=== PATIENT | female | born 1965 | race Caucasian/White ===

== ENCOUNTER 2020-04-20 11:50 | Outpatient (CLI) | payer OTHER, SELFPAY ==
--- NOTE | ~2020-04-20 | MM_ITS ---
EXAMINATION: MM screening gokul BI w raza HISTORY: Screening mammogram TECHNIQUE: Craniocaudal and mediolateral oblique 3-D tomosynthesis images were obtained and synthetic 2-D images were generated. CAD analysis was submitted and interpreted. COMPARISON: No prior mammogram is available for comparison at this institution. BREAST PARENCHYMAL COMPOSITION: There are scattered areas of fibroglandular density. FINDINGS: There is no evidence of suspicious mass, calcification, or architectural distortion to sugg est malignancy in either breast. IMPRESSION: 1. No mammographic evidence of malignancy. 2. Recommend routine screening mammography in one year. BI-RADS Category 1: Negative Reviewed, dictated and finalized at location D.
== END 2020-04-20 11:51 | disposition home or self-care (01) ==
PROVIDERS: PCP Physician Assistant; Visit Provider Obstetrics & Gynecology
DX: Z12.31 Encounter for screening mammogram for malignant neoplasm of breast (principal)
CPT/HCPCS: 77063; 77067

== ENCOUNTER 2021-04-24 08:56 | Outpatient (CLI) | payer OTHER, SELFPAY ==
--- NOTE | ~2021-04-24 | MM_ITS ---
EXAMINATION: MM screening gokul BI w raza HISTORY: Screening TECHNIQUE: Craniocaudal and mediolateral oblique 3-D tomosynthesis images were obtained and synthetic 2-D images were generated. CAD analysis was submitted and interpreted. COMPARISON: 04/20/2020 BREAST PARENCHYMAL COMPOSITION: There are scattered areas of fibroglandular density. FINDINGS: There is no evidence of suspicious mass, calcification, or architectural distortion to sugg est malignancy in either breast. There has been no suspicious interval change. IMPRESSION: 1. No mammographic evidence of malignancy. 2. Recommend routine screening mammography in one year. BI-RADS Category 1: Negative Reviewed, dictated and finalized at location A.
== END 2021-04-24 08:57 | disposition home or self-care (01) ==
LOC: ANHIMG 08:58
PROVIDERS: PCP Physician Assistant; Visit Provider Obstetrics & Gynecology
DX: Z12.31 Encounter for screening mammogram for malignant neoplasm of breast (principal)
CPT/HCPCS: 77063; 77067

== ENCOUNTER 2021-05-29 07:59 | Outpatient (CLI) | payer OTHER, SELFPAY ==
[2021-05-29 08:17] LABS: Hematocrit 32.4 % (37.0-47.0); Hemoglobin 9.6 g/dL (12.0-15.0)
== END 2021-05-29 08:00 | disposition home or self-care (01) ==
LOC: ANHSURGERY 08:02
PROVIDERS: Anesthesiology; PCP Physician Assistant; Visit Provider Obstetrics & Gynecology
DX: D64.9 Anemia, unspecified (principal); Z01.818 Encounter for other preprocedural examination
CPT/HCPCS: 36415; 85014; 85018

== ENCOUNTER 2021-05-31 02:17 | Day surgery (SDC) | payer OTHER, SELFPAY ==
[2021-05-26 11:27] VITALS: BMI 33.6
--- NOTE | 2021-05-31 12:47 | P.PNAN_ITS ---
Anes - Initial Pre Proc Eval Procedure: Operation Date: 05/31/21 15:30 Proposed Procedures p Hysteroscopy, Dilation and Curettage with Tari Endometrial Ablation - Joaquim Bynum MD Date/Time: 05/31/21 12:47 Surgeon: Joaquim Bynum MD Pre Op Diagnosis: post menopausal bleeding Patient Data Age: 56 Gender: F Height: 1.6 m Weight: 86.18 kg Allergies Allergy/AdvReac Type Severity Reaction Status Date / Time No Known Allergies Allergy Unverified 05/31/21 13:40 Home Medications Medication Instructions Recorded Confirmed Type apixaban [Eliquis] 5 mg PO BID 05/26/21 05/31/21 History ferrous sulfate [Iron (ferrous 325 mg PO DAILY 05/26/21 05/31/21 History sulfate)] lisinopril 10 mg PO DAILY 05/26/21 05/31/21 History tf-pt-bxqz-FA-Ca carb-vit K 1 tablet PO DAILY 05/26/21 05/31/21 History [Women's Multivitamin] venlafaxine 75 mg PO DAILY 05/26/21 05/31/21 History medroxyprogesterone 10 mg PO DAILY 05/31/21 05/31/21 History Patient hx anesthesia problems: none Family hx anesthesia problems: none Results Review: All pre-operative results and documents have been reviewed as part of the pre-operative evaluation. [facility] Past Medical History Medical History Anxiety Depression HTN (hypertension) Obesity Pulmonary embolism Social History Social History Smoking status: Never smoker Alcohol intake: never Substance use: never Substance use type: does not use Living arrangements: with family Spiritual care concerns: No Anes - Eval Final PreProcedure Day of Procedure 05/31/21 12:47 Patient weight: obese Heart: regular rate and rhythm Lungs: clear to auscultation and normal air movement Airway: Mallampati scale class II Neurological: alert and oriented Last oral intake: >/= 8 hours ASA classification: III Emergent: no Anesthetic plan: proceed Anesthesia type and monitoring: general GIVS Results Review: All pre-operative results and documents have been reviewed as part of the pre-operative evaluation. Informed Consent: The patient's anesthetic plan and its attendant risks and benefits were discussed with the patient/family/POA. Questions were solicited and answers provided to the satisfaction of the patient/family/POA.
[2021-05-31] MEDS: ACETAMINOPHEN 500 MG TABLET 1000 MG PO (13:51)
--- NOTE | 2021-05-31 14:05 | PM.IMHP ---
H&P: HPI History of Present Illness Date/Time: 05/31/21 14:05 56 y/o with history of pulmonary emboli, on Eliquis. Now has had several episodes of heavy vaginal bleeding. These episodes have responded somewhat to treatment with Provera, but have recurred on stopping the medicine. Chief Complaint: Heavy bleeding Review of Systems Review of Systems: All systems reviewed & are unremarkable except as noted in HPI and below PMFSH Past Medical History Medical History Anxiety Depression HTN (hypertension) Obesity Pulmonary embolism Social History Social History Smoking status: Never smoker Alcohol intake: never Substance use: never Substance use type: does not use Living arrangements: with family Spiritual care concerns: No Meds Home Medications and Allergies Home Medications Medication Instructions Recorded Confirmed Type apixaban [Eliquis] 5 mg PO BID 05/26/21 05/31/21 History ferrous sulfate [Iron (ferrous 325 mg PO DAILY 05/26/21 05/31/21 History sulfate)] lisinopril 10 mg PO DAILY 05/26/21 05/31/21 History sg-ea-hflt-FA-Ca carb-vit K 1 tablet PO DAILY 05/26/21 05/31/21 History [Women's Multivitamin] venlafaxine 75 mg PO DAILY 05/26/21 05/31/21 History medroxyprogesterone 10 mg PO DAILY 05/31/21 05/31/21 History Allergies Allergy/AdvReac Type Severity Reaction Status Date / Time No Known Allergies Allergy Unverified 05/31/21 13:40 Exam Const: Orientation/consciousness: patient oriented x3 Other: Well-developed, well-nourished female in no acute distress. Neck: Thyroid: thyroid normal Lymphatic: no lymphadenopathy noted (in neck, axilla or inguinal nodes) Resp: Effort & Inspection: normal respiratory effort Auscultation: clear to auscultation bilaterally Cardio: Rate: regular rate Rhythm: regular rhythm Heart sounds: S1 normal heart sound present and S2 normal heart sound present GI: Other: ABD: Soft, nontender, nondistended. No guarding or rebound tenderness. No hepatosplenomegaly. : General: Yes no CVA tenderness Other: External genitalia: normal female hair distribution, without lesion. Urethral meatus: no lesion, non prolapsed. Bladder: no mass, nontender Vagina: well-estrogenized, without lesion or discharge. No cystocele or rectocele. Cervix: no lesion or discharge. Uterus: small, anteverted, freely mobile, nontender Adnexa: no mass or tenderness. Anus/perineum: no lesions, nontender Back/Spine/Pelvis: Back: no CVA tenderness Skin: General skin exam: normal color and no rashes or lesions noted Neuro: General: patient oriented x3 Extrem: Other: Extremities: nontender with no edema Psych: Mental Status: mental status grossly normal Affect: normal affect Assessment and Plan Assessment and plan (1) Episode of heavy vaginal bleeding: Code(s): N93.9 - Abnormal uterine and vaginal bleeding, unspecified Status: Acute Assessment and Plan: A: Episodes of heavy vaginal bleeding. P: I have offered continued attempts at medical management, as well as surgical management options. She is interested in the latter. Specifically, I offered her hysteroscopy, dilation and sharp curettage, and endometrial ablation. She understands risks of surgery to include risks of anesthesia, risks of pain, infection, bleeding, blood products, thromboembolic phenomena and damage to adjacent structures such as bowel, bladder, ureters, blood vessels and nerves. She understands all these risks and elects to proceed with surgery.
[2021-05-31 14:11] VITALS: BP 140/77; PULSE 86; RESP 16; TEMP 37.3; O2SAT 100
[2021-05-31] MEDS: LACTATED RINGERS 1,000 ML 30 ML IV CONT (14:11)
--- NOTE | 2021-05-31 14:19 | WPDHPUPDATE1 ---
History and Physical Update Update Date/Time: 05/31/21 14:19 History and Physical has been reviewed, including an updated exam of the patient. There are NO changes in the patient's condition. Risks, benefits, and alternatives have been discussed and questions answered. Patient agrees to proceed with procedure.
--- NOTE | 2021-05-31 16:14 | P.OP_ITS ---
Procedure Note - Detailed Date of Procedure 05/31/21 Pre-op Diagnosis Heavy episode of vaginal bleeding Post-op Diagnosis same Procedure Performed Hysteroscopy Dilation and sharp curettage Endometrial ablation Surgeon Joaquim Bynum MD Anesthesia MAC and local (1% lidocaine paracervical block) Findings Normal-appearing endometrium. Both tubal ostia seen. Uterus sounds to a depth of 8 cm with a cervical length of 3.5 cm. Description of Procedure The patient was taken to the operating room where she was prepared and draped in the usual sterile fashion in the dorsal lithotomy position. The bladder was drained with a red rubber catheter. A sterile speculum was placed into the vagina. The anterior lip of the cervix was grasped with single-tooth tenaculum. Ten mL of 1% lidocaine was administered in a paracervical block. The cervix was then gently dilated using Hegar dilators until an 8 mm dilator could be passed. Hysteroscopy was performed using sterile saline as a distention medium. Findings are as noted above. Sharp curettage was then performed, and endometrial curettings were collected on a Telfa pad and passed off to be sent to pathology. Finally, the the Tari device was advanced and endometrial ablation commenced without difficulty. The device was withdrawn and a second look was taken using the hysteroscope. Excellent coverage of the endometrial cavity was noted. The tenaculum was removed. Hemostasis was excellent. Spong e, lap, needle and instrument counts were correct. The patient was awakened and taken to the recovery room in stable condition. I was present and scrubbed through the entire procedure. Estimated Blood Loss 10 Drains No Packing No Pathology yes (endometrial curettings) Complications None Condition stable Disposition PACU
[2021-05-31 16:16] VITALS: BP 131/70; PULSE 83; RESP 16; O2SAT 100
[2021-05-31 16:52] VITALS: BP 157/80; PULSE 76; RESP 20; O2SAT 100
== END 2021-05-31 17:04 | disposition home or self-care (01) ==
PROVIDERS: PCP Physician Assistant; Visit Provider Obstetrics & Gynecology
PROC: 0U5B8ZZ Destruction of Endometrium, Via Natural or Artificial Opening Endoscopic (ICD-10-PCS; CPT 58563; principal; 2021-05-31 15:30)
DX: N93.9 Abnormal uterine and vaginal bleeding, unspecified (principal); N85.8 Other specified noninflammatory disorders of uterus; F41.8 Other specified anxiety disorders; I10 Essential (primary) hypertension; Z86.711 Personal history of pulmonary embolism; E66.9 Obesity, unspecified; Z68.34 Body mass index [BMI] 34.0-34.9, adult
CPT/HCPCS: 58563; 36415; 85014; 85018; 88305; A9270; J2250; J2405; J2704; J3010; J7120

== ENCOUNTER 2021-08-04 08:21 | Outpatient (CLI) | payer BC, SELFPAY ==
--- NOTE | 2021-08-04 08:29 | ECG_ITS ---
Measurements Intervals [place] Rate: 80 P: 44 NV: 149 QRS: 13 QRSD: 98 T: 42 QT: 383 QTc: 444 Interpretive Statements SINUS RHYTHM LOW QRS VOLTAGE IN PRECORDIAL LEADS BASELINE ARTIFACT- I, II, III, AVR, AVL, AVF BORDERLINE ECG Electronically Signed On 08-04-2021 8:36:06 RN QUALITY by Chu Apodaca D.O.
[2021-08-04 09:07] LABS: Hematocrit 37.1 % (37.0-47.0); Hemoglobin 11.4 g/dL (12.0-15.0)
== END 2021-08-04 08:22 | disposition home or self-care (01) ==
LOC: ANHSURGERY 08:25
PROVIDERS: Anesthesiology; PCP Physician Assistant; Visit Provider Obstetrics & Gynecology
DX: N93.9 Abnormal uterine and vaginal bleeding, unspecified (principal); I10 Essential (primary) hypertension; D64.9 Anemia, unspecified; Z01.818 Encounter for other preprocedural examination; R94.31 Abnormal electrocardiogram [ECG] [EKG]
CPT/HCPCS: 36415; 85014; 85018; 86850; 86900; 86901; 93005

== ENCOUNTER 2021-08-08 00:17 | Day surgery (SDC) | payer BC, SELFPAY ==
[2021-08-01 14:02] VITALS: BMI 34.3
--- NOTE | 2021-08-01 14:14 | PC.NURSE ---
Report to the Outpatient Waiting Room, entrance under the green pavilion located off [facility], at time 11:30 on date 08/08/21. OR Time: 1:30. - You will be asked a series of questions to screen for COVID 19 for your protection. - A mask is required within the hospital. - No visitors are allowed at this time. Preoperative COVID Testing Requirements: No COVID Test needed if: (proof is required; if not received patient will have Rapid Test prior to entry) - Patient has received COVID Vaccine at least 14 days prior to procedure date or - Patient has positive COVID test result within last 90 days of surgery date. COVID Test needed if above criteria is not met Patients may have clear liquids (water, carbonated beverages, clear teas, apple juice) until 3 hours prior to surgery (10:30) with a maximum of 20 ounces. - No food from midnight until time of surgery Take the following medications with a SIP of water the morning of surgery: VENLAFAXINE, NORETHINDRONE Medications to discontinue per physician: VITAMINS/SUPPLEMENTS Date to take last dose: 08/04/[address] HWALEN Please no make-up, nail kazakh, hairspray, perfume, deodorant, or body powder the day of surgery. No jewelry (including any body piercings) or valuables the day of surgery, leave them at home. Please take a shower or bath the night before, or the morning of, surgery with an antibacterial soap. Wear comfortable, loose fitting clothing. - Jewelry must be removed prior to entering the operating room. Rings and piercings that are not removed may be cut off. - The hospital will not accept responsibility for valuables. - Please leave all valuables, including medications, at home the day of surgery. If you are going home after surgery, a licensed driver material handler must drive you home. - NO public transportation without another adult. - We recommend that an adult stay with you for 24 hours following discharge. - We also recommend that you do not drive, make important decision, drink alcoholic beverages, or take any drugs that were not prescribed by your health care provider for at least 24 hours after your discharge time. Follow any additional instructions given to you from your surgeon. Telephone instructions given to YAMILA CUTLER and asked if any additional questions and then verbalized understanding. Patient advised to call surgeon office or pre surgery nurse liaison [phone] if any additional questions.
[2021-08-08] VITALS (9 sets, daily range): BP systolic 119–151; BP diastolic 64–90; PULSE 68–84; RESP 12–18; TEMP 36.6–37.4; O2SAT 94–100
[2021-08-08] MEDS: ACETAMINOPHEN 500 MG TABLET 1000 MG PO (12:14)
[2021-08-08] MEDS: KETOROLAC 15 MG/ML VIAL (*BKC) IV PUSH (12:15)
--- NOTE | 2021-08-08 12:15 | P.PNAN_ITS ---
Anes - Eval Pre Procedure Procedure: Operation Date: 08/08/21 13:30 Proposed Procedures p Robotic Assisted Total Vaginal Hysterectomy with Bilateral Salpingo- Oophorectomy - Joaquim Bynum MD Date/Time: 08/08/21 12:15 Pre Op Diagnosis: heavy bleeding, failed ablation Patient Data Age: 56 Gender: F Height: 1.6 m Weight: 88 kg Allergies Allergy/AdvReac Type Severity Reaction Status Date / Time hydrocodone AdvReac Intermediate Vomiting Verified 08/01/21 14:07 Home Medications Medication Instructions Recorded Confirmed Type ferrous sulfate [Iron (ferrous 325 mg PO DAILY 05/26/21 08/01/21 History sulfate)] lisinopril 10 mg PO DAILY 05/26/21 08/01/21 History wn-tm-fscf-FA-Ca carb-vit K 1 tablet PO DAILY 05/26/21 08/01/21 History venlafaxine 75 mg PO DAILY 05/26/21 08/01/21 History aspirin [Baby Aspirin] 81 mg PO DAILY 08/01/21 08/01/21 History norethindrone acetate 5 mg PO DAILY 08/01/21 08/01/21 History Patient hx anesthesia problems: none Family hx anesthesia problems: none Results Review: All pre-operative results and documents have been reviewed as part of the pre-operative evaluation. [facility] Past Medical History Medical History Anxiety Depression HTN (hypertension) Obesity Pulmonary embolism Social History Social History Smoking status: Never smoker Alcohol intake: never Substance use: never Substance use type: does not use Living arrangements: with family Spiritual care concerns: No Exam Day of Procedure 08/08/21 12:15 Patient weight: obese Heart: regular rate and rhythm Lungs: clear to auscultation Airway: Mallampati scale class II Neurological: alert and oriented
[2021-08-08] MEDS: LACTATED RINGERS 1,000 ML 30 ML IV CONT ×2 (12:16→15:00)
[2021-08-08] MEDS: SCOPOLAMINE 1.5 MG PATCH TRANSDERM (12:32)
--- NOTE | 2021-08-08 12:37 | WPDANESEPPF ---
Anes - Initial Pre Proc Eval Procedure: Operation Date: 08/08/21 13:30 Proposed Procedures p Robotic Assisted Total Vaginal Hysterectomy with Bilateral Salpingo-Oophorectomy - Joaquim Bynum MD Date/Time: 08/08/21 12:37 Surgeon: Joaquim Bynum MD Pre Op Diagnosis: heavy bleeding, failed ablation Patient Data Age: 56 Gender: F Height: 1.6 m Weight: 90 kg Last Vital Signs Temp 99.4 F 08/08/21 12:00 Pulse 74 08/08/21 12:00 Resp 18 08/08/21 12:00 BP 151/85 H 08/08/21 12:00 Pulse Ox 100 08/08/21 12:00 Allergies Allergy/AdvReac Type Severity Reaction Status Date / Time hydrocodone AdvReac Intermediate Vomiting Verified 08/08/21 12:21 Home Medications Medication Instructions Recorded Confirmed Type ferrous sulfate [Iron (ferrous 325 mg PO DAILY 05/26/21 08/08/21 History sulfate)] lisinopril 10 mg PO DAILY 05/26/21 08/08/21 History ds-cs-tkss-FA-Ca carb-vit K 1 tablet PO DAILY 05/26/21 08/08/21 History venlafaxine 75 mg PO DAILY 05/26/21 08/08/21 History aspirin [Baby Aspirin] 81 mg PO DAILY 08/01/21 08/08/21 History norethindrone acetate 5 mg PO DAILY 08/01/21 08/08/21 History Patient hx anesthesia problems: none Family hx anesthesia problems: none Results Review: All pre-operative results and documents have been reviewed as part of the pre-operative evaluation. [facility] Past Medical History Medical History Anxiety Depression HTN (hypertension) Obesity Pulmonary embolism Social History Social History Smoking status: Never smoker Alcohol intake: never Substance use: never Substance use type: does not use Living arrangements: with family Spiritual care concerns: No Anes - Eval Final PreProcedure Day of Procedure 08/08/21 12:37 Patient weight: obese Heart: regular rate and rhythm Lungs: clear to auscultation Airway: Mallampati scale class II Neurological: alert and oriented Last oral intake: >/= 8 hours ASA classification: III Emergent: no Anesthetic plan: proceed Anesthesia type and monitoring: general ETT and standard monitoring Results Review: All pre-operative results and documents have been reviewed as part of the pre-operative evaluation. Informed Consent: The patient's anesthetic plan and its attendant risks and benefits were discussed with the patient/family/POA. Questions were solicited and answers provided to the satisfaction of the patient/family/POA.
--- NOTE | 2021-08-08 13:04 | PM.IMHP ---
H&P: HPI History of Present Illness Date/Time: 08/08/21 13:04 56 y/o with menometrorrhagia despite an endometrial ablation. Has just been switched from Eliquis to ASA. Chief Complaint: Heavy irregular bleeding Review of Systems Review of Systems: All systems reviewed & are unremarkable except as noted in HPI and below PMFSH Past Medical History Medical History (Updated 08/08/21 @ 13:06 by Joaquim Bynum MD) Anxiety Depression HTN (hypertension) Obesity Pulmonary embolism Surgical History Surgical History History of delivery History of endometrial ablation Social History Social History Smoking status: Never smoker Alcohol intake: never Substance use: never Substance use type: does not use Living arrangements: with family Spiritual care concerns: No Meds Home Medications and Allergies Home Medications Medication Instructions Recorded Confirmed Type ferrous sulfate [Iron (ferrous 325 mg PO DAILY 05/26/21 08/08/21 History sulfate)] lisinopril 10 mg PO DAILY 05/26/21 08/08/21 History ll-yy-mvhe-FA-Ca carb-vit K 1 tablet PO DAILY 05/26/21 08/08/21 History venlafaxine 75 mg PO DAILY 05/26/21 08/08/21 History aspirin [Baby Aspirin] 81 mg PO DAILY 08/01/21 08/08/21 History norethindrone acetate 5 mg PO DAILY 08/01/21 08/08/21 History Allergies Allergy/AdvReac Type Severity Reaction Status Date / Time hydrocodone AdvReac Intermediate Vomiting Verified 08/08/21 12:21 Vital Signs Vital Signs - 24 hr 08/08/21 12:00 Temperature 37.4 C Pulse Rate 74 Respiratory Rate 18 Blood Pressure 151/85 H Pulse Oximetry 100 Assessment and Plan Assessment and plan (1) Menometrorrhagia: Code(s): N92.1 - Excessive and frequent menstruation with irregular cycle Status: Acute Assessment and Plan: A: Menometrorrhagia, refractory to conservative management. P: She is interested in definitive management. Specifically, she would like a robotic assisted TVHBSO. She understands risks of surgery to include risks of anesthesia, risks of pain, infection, bleeding, blood products, thromboembolic phenomena and damage to adjacent structures such as bowel, bladder, ureters, blood vessels and nerves. She understands all these risks and elects to proceed with surgery.
--- NOTE | 2021-08-08 13:07 | WPDHPUPDATE1 ---
History and Physical Update Update Date/Time: 08/08/21 13:07 History and Physical has been reviewed, including an updated exam of the patient. There are NO changes in the patient's condition. Risks, benefits, and alternatives have been discussed and questions answered. Patient agrees to proceed with procedure.
[2021-08-08] MEDS: ceFAZolin 2 GM/D5W 50 ML 2 GM/50 ML BAG IVPB (13:11)
--- NOTE | 2021-08-08 14:56 | P.OP_ITS ---
Procedure Note - Detailed Date of Procedure 08/08/21 Pre-op Diagnosis Menometrorrhagia Post-op Diagnosis same Procedure Performed Robotic assisted total vaginal hysterectomy with bilateral salpingooophorectomies Surgeon Joaquim Bynum MD Anesthesia general Findings Normal-appearing uterus, tubes and ovaries, normal uterosacral and round ligaments, normal anterior and posterior cul-de-sac. Description of Procedure The patient was taken to the operating room where general endotracheal anesthesia was administered. She was prepared and draped in the usual sterile fashion in the dorsal lithotomy position. The bladder was drained with Martinez catheter. The cervix was visualized and the anterior lip was grasped using a single-tooth tenaculum. The cervix was gently dilated using Hegar dilators. The RHONDA 2 uterine manipulator was then placed and the tenaculum was removed. Gloves were changed and attention was turned to the abdomen. A supraumbilical skin incision was made with the scalpel. The Veress needle was advanced and pneumoperitoneum was administered using carbon dioxide gas. The bladeless trocar was then advanced. Intraperitoneal placement was confirmed using the laparoscope. Lateral ports and an aquatics assistant department head port were all placed using bl adeless trocars under direct laparoscopic visualization. She was placed in Trendelenburg position and the patient cart was docked. I assumed the console. The ureters were visualized bilaterally. The round ligament on the right was divided. The infundibulopelvic ligament was divided. The broad ligament was divided, skeletonizing the uterine artery on the right. The bladder was reflected away. The left side was similarly dissected. Colpotomy was performed circumferentially. The specimen was removed and passed off to be sent to pathology. The vaginal cuff was reapproximated using 0 Vicryl in interrupted [id number] fashion. The pelvis was irrigated copiously using warmed normal saline. Rigorous hemostasis was assured. HemaDerm was applied to the vaginal cuff. The pedicles were inspected once again. The ports were then withdrawn and the gas was allowed to escape. The skin incisions were reapproximated using 4 0 Monocryl in interrupted subcuticular fashion. Dermaflex was applied externally. Sponge, lap, needle and instrument counts were correct. The patient was awakened and taken to the recovery room in stable condition. I was present and scrubbed through the entire procedure. Estimated Blood Loss 100 Drains Yes (martinez) Packing No Pathology yes (uterus, cervix, bilateral tubes and ovaries) Complications None Condition stable Disposition PACU
--- NOTE | 2021-08-08 14:58 | PM.DS ---
DS: Admitting Diagnosis Discharge Date 08/09/21 Admitting Diagnosis Menometrorrhagia DS: Discharge Diagnosis Discharge Diagnosis (1) Menometrorrhagia: Code(s): N92.1 - Excessive and frequent menstruation with irregular cycle Status: Acute DS: Summary Hospital Course Hospital Course: She was admitted on the date of scheduled surgery. Did well postoperatively and was able to go home on POD 1. DS: Data Data Completed and Pending Pending studies at discharge: Pending at discharge 08/08/21 14:10 Surgical [PTH] Routine Discharge Plan Discharge Patient Disposition: Home, Self-Care Discharge Instructions: Pelvic rest for 6 weeks. Call or return if temperature above 100.4? F, increased abdominal pain, increased vaginal bleeding or any new problems. Stand Alone Forms: General Discharge Instructions Follow-up/Referrals: Joaquim Bynum MD [Physician] - 2 Weeks Discharge Medications: New oxycodone-acetaminophen [Percocet] 5-325 mg tablet 1 - 2 tablet PO Q6H PRN (Reason: pain) Qty: 30 RF: 0 Continued aspirin 81 mg Tablet,Chewable 81 mg PO DAILY RF: 0 venlafaxine 75 mg Capsule,Extended Release 24hr 75 mg PO DAILY RF: 0 ferrous sulfate [Iron (ferrous sulfate)] 325 mg (65 mg iron) Tablet 325 mg PO DAILY RF: 0 lisinopril 10 mg Tablet 10 mg PO DAILY RF: 0 zs-kc-myxj-FA-Ca carb-vit K 18 mg iron-400 mcg-500 mg Tablet 1 tablet PO DAILY RF: 0 Discontinued norethindrone acetate 5 mg tablet 5 mg PO DAILY RF: 0
[2021-08-08] MEDS: fentaNYL CITRATE INJ (*CRX) 100 MCG/2 ML VIAL 25 MCG IV PUSH ×4 (15:44→15:55)
--- NOTE | 2021-08-08 16:30 | PC.NURSE ---
This patient, Viktoriya Bell, was received from PACU on 08/08/21 at 1630. Patient/family oriented to unit policies and routines
[2021-08-08] MEDS: DEXTROSE 5%/0.45% SOD CHL 1,000 ML 125 ML IV CONT (17:45)
[2021-08-08] MEDS: ONDANSETRON INJ 4 MG/2 ML VIAL IV PUSH (19:36)
[2021-08-08] MEDS: VENLAFAXINE HCL XR 75 MG CAP.ER.24H PO (19:37)
[2021-08-08] MEDS: IBUPROFEN 600 MG TABLET PO (19:37)
[2021-08-08] MEDS: lisinopriL 10 MG TABLET PO (19:37)
[2021-08-08] MEDS: oxyCODONE/ACETAMINOPHEN (*CRX) 5-325 MG TABLET 1 TABLET PO (19:38)
[2021-08-08] MEDS: ENOXAPARIN 40 MG/0.4 ML SYRINGE SUB-Q (19:42)
[2021-08-09] MEDS: oxyCODONE/ACETAMINOPHEN (*CRX) 5-325 MG TABLET 1 TABLET PO (01:32)
[2021-08-09] MEDS: IBUPROFEN 600 MG TABLET PO (01:33)
[2021-08-09 03:56] VITALS: BP 107/71; PULSE 80; RESP 18; TEMP 37.2
[2021-08-09 05:20] LABS: Basophils Percent Auto 0.1 % (0.2-1.2); Hematocrit 32.7 % (37.0-47.0); Hemoglobin 10.4 g/dL (12.0-15.0); Immature Granulocyte Absolute 0.04 K/mm3 (0.00-0.031); Immature Granulocyte Percent A 0.5 % (0-0.5); Lymphocytes Absolute Auto 0.74 K/mm3 (0.9-3.2); Lymphocytes Percent Auto 8.6 % (18.3-44.2); Mean Corpuscular HGB Conc 31.8 g/dl (32-36); Mean Corpuscular Hemoglobin 28.5 pg (26-34); Mean Corpuscular Volume 89.6 fl (80-100); Mean Platelet Volume 10.3 fl (7.4-10.4); Monocytes Absolute Auto 0.5 K/mm3 (0.1-0.6); Monocytes Percent Auto 5.7 % (2.6-8.5); Neutrophils Absolute Auto 7.3 K/mm3 (1.3-6.7); Neutrophils Percent Auto 85.1 % (45.5-73.1); Platelet Count Result 250 k/mm3 (150-375); Red Blood Count 3.65 M/mm3 (4.2-5.4); Red Cell Distribution Width 13.5 % (11.5-14.5); White Blood Count 8.6 K/mm3 (4.5-10.0)
--- NOTE | 2021-08-09 07:45 | WPDANESPN ---
Anes - Prog Note Post-Op Date/Time: 08/09/21 07:45 Cardiovascular status: normal Respiratory status: normal Airway patency: baseline Mental status: baseline Post-Op hydration status: normal Vital Signs: Last Vital Signs Temp 99.0 F 08/09/21 03:56 Pulse 80 08/09/21 03:56 Resp 18 08/09/21 03:56 BP 107/71 08/09/21 03:56 Pulse Ox 94 08/08/21 16:35 Pain Score (VAS): 08/07 I/O: Intake & Output 08/08/21 08/08/21 08/09/21 15:59 23:59 07:59 Intake Total 50 300 2400 Output Total 175 1200 Balance 50 125 1200 Laboratory Tests 08/09/21 03:29 08/09/21 03:29 WBC 8.6 RBC 3.65 L Hgb 10.4 L Hct 32.7 L MCV 89.6 MCH 28.5 MCHC 31.8 L RDW 13.5 Plt Count 250 MPV 10.3 Immature Gran % (Auto) 0.5 Neut % (Auto) 85.1 H Lymph % (Auto) 8.6 L [place] % (Auto) 5.7 Eos % (Auto) 0.0 Baso % (Auto) 0.1 L Lymph # (Auto) 0.74 L [place] # (Auto) 0.5 Eos # (Auto) 0.0 Baso # (Auto) 0.0 Abs Immat Gran (auto) 0.04 H Absolute Neuts (auto) 7.3 H Absolute Nucleated RBC 0.0 Nucleated RBC % 0.0 Post-procedural complaints: none Patient Feedback: Patient satisfied with anesthetic care.
[2021-08-09 08:30] VITALS: BP 115/53; PULSE 78; RESP 18; TEMP 36.8; O2SAT 100
--- NOTE | 2021-08-09 08:57 | PM.GYNPNOP ---
[employer] - A/P Postoperative Procedures: Procedures Operation Date: 08/08/21 13:30 Actual Procedure Side Surgeon p Robotic Assisted Total Vaginal Hysterectomy with Bilateral Salpingo-Oophorectomy Joaquim Bynum MD A: POD#1, doing well. P: Home to f/u 2 weeks. Time Spent With Patient Time with patient: less than 15 minutes [employer]- PN:Subj Post-Op Subjective Date/time seen: 08/09/21 08:57 Interval history: Pain OK. Tolerating diet. Voiding. Would like to go home. Exam Narrative: AVSS I/O OK ABD soft, nontender. Incisions c/d/i. EXT nontender [employer] - PN: Obj Data Vital Signs Vital Signs: Vital Signs - 24 hr 08/08/21 12:00 08/08/21 15:00 08/08/21 15:15 Temperature 37.4 C 36.6 C Pulse Rate 74 84 70 Respiratory Rate 18 13 12 Blood Pressure 151/85 H 122/70 119/76 Pulse Oximetry 100 100 100 08/08/21 15:30 08/08/21 15:45 08/08/21 16:00 Temperature Pulse Rate 74 68 70 Respiratory Rate 12 14 12 Blood Pressure 120/76 124/64 123/77 Pulse Oximetry 100 96 97 08/08/21 16:35 08/08/21 18:30 08/08/21 22:39 Temperature 36.7 C 36.8 C 36.8 C Pulse Rate 73 75 84 Respiratory Rate 16 18 18 Blood Pressure 139/78 146/90 H 123/64 Pulse Oximetry 94 08/09/21 03:56 Temperature 37.2 C Pulse Rate 80 Respiratory Rate 18 Blood Pressure 107/71 Pulse Oximetry Intake/Output Intake/Output: Intake & Output 08/06/21 08/07/21 08/08/21 08/09/21 23:59 23:59 23:59 23:59 Intake Total 350 2400 Output Total 175 1200 Balance 175 1200 Meds/Results Medications: Active Medications Generic Name Dose Route Start Last Admin Trade Name Freq PRN Reason Stop Dose Admin Aspirin 81 mg 08/09/21 09:00 Aspirin 81 Mg Chewable Tablet PO DAILY [facility] Docusate Sodium 100 mg 08/08/21 17:00 08/08/21 18:14 Docusate Sodium 100 Mg Capsule PO Not Given BID [facility] Enoxaparin Sodium 40 mg 08/08/21 21:00 08/08/21 19:42 Enoxaparin 40 Mg/0.4 Ml Syringe SUB-Q 40 mg DAILY@2100 [facility] Administration Ibuprofen 600 mg 08/08/21 16:20 08/09/21 01:33 Ibuprofen 600 Mg Tablet PO 600 mg Q6H PRN Administration Cramping Lisinopril 10 mg 08/08/21 16:25 08/08/21 19:37 Lisinopril 10 Mg Tablet PO 10 mg DAILY [facility]IZA Administration Morphine Sulfate 4 mg 08/08/21 16:20 Morphine Sulfate (*Crx) 4 Mg/Ml Inj IV PUSH Q4H PRN Pain Rated 7-10 Naloxone HCl 0.1 mg 08/08/21 16:20 Naloxone Hcl 0.4 Mg/Ml Vial IV PUSH Q2M PRN Respiratory rate less than 10 Ondansetron HCl 4 mg 08/08/21 16:20 08/08/21 19:36 Ondansetron Inj 4 Mg/2 Ml Vial IV PUSH 4 mg Q6H PRN Administration Nausea Oxycodone/Acetaminophen 1 tablet 08/08/21 16:20 08/09/21 01:32 Oxycodone/Acetaminophen (*Crx) 5-325 Mg Tablet PO 1 tablet Q4H PRN Administration Pain Rated 6 or Greater Venlafaxine HCl 75 mg 08/08/21 16:30 08/08/21 19:37 Venlafaxine Hcl Xr 75 Mg Cap.Er.24h PO 75 mg DAILY ELIZA Administration Labs CBC & Chem 7: 08/09/21 03:29 Labs: Laboratory Results - last 24 hr 08/09/21 03:29 WBC 8.6 RBC 3.65 L Hgb 10.4 L Hct 32.7 L MCV 89.6 MCH 28.5 MCHC 31.8 L RDW 13.5 Plt Count 250 MPV 10.3 Immature Gran % (Auto) 0.5 Neut % (Auto) 85.1 H Lymph % (Auto) 8.6 L [place] % (Auto) 5.7 Eos % (Auto) 0.0 Baso % (Auto) 0.1 L Lymph # (Auto) 0.74 L [place] # (Auto) 0.5 Eos # (Auto) 0.0 Baso # (Auto) 0.0 Abs Immat Gran (auto) 0.04 H Absolute Neuts (auto) 7.3 H Absolute Nucleated RBC 0.0 Nucleated RBC % 0.0
== END 2021-08-09 11:10 | disposition home or self-care (01) ==
LOC: ANHSURGERY 14:59 → ANHOB2 16:08
PROVIDERS: PCP Physician Assistant; Visit Provider Obstetrics & Gynecology
PROC: (CPT 58552; principal; 2021-08-08 13:30)
DX: N92.1 Excessive and frequent menstruation with irregular cycle (principal); N80.0 Endometriosis of uterus; N83.02 Follicular cyst of left ovary; I10 Essential (primary) hypertension; F41.8 Other specified anxiety disorders; Z86.711 Personal history of pulmonary embolism; Z79.82 Long term (current) use of aspirin; E66.9 Obesity, unspecified; Z68.35 Body mass index [BMI] 35.0-35.9, adult
CPT/HCPCS: 58552; S2900; 36415; 85014; 85018; 85025; 86850; 86900; 86901; 88307; 93005; 99199; A9270; J0330; J0690; J1650; J1885; J2250; J2270; J2405; J2704; J3010; J7030; J7120

== ENCOUNTER 2022-04-26 07:57 | Outpatient (CLI) | payer BC, SELFPAY ==
--- NOTE | ~2022-04-26 | MM_ITS ---
EXAMINATION: MM screening gokul BI w raza HISTORY: Screening mammogram TECHNIQUE: Craniocaudal and mediolateral oblique 3-D tomosynthesis images were obtained and synthetic 2-D images were generated. CAD analysis was submitted and interpreted. COMPARISON: 04/24/2021, 04/20/2020 bilateral screening mammogram examinations BREAST PARENCHYMAL COMPOSITION: There are scattered areas of fibroglandular density. FINDINGS: There is no evidence of suspicious mass, calcification, or architectural distortion to sugg est malignancy in either breast. There has been no suspicious interval change. IMPRESSION: 1. No mammographic evidence of malignancy. 2. Recommend routine screening mammography in one year. BI-RADS Category 1: Negative Reviewed, dictated and finalized at location A.
== END 2022-04-26 07:58 | disposition home or self-care (01) ==
PROVIDERS: PCP Physician Assistant; Visit Provider Obstetrics & Gynecology
DX: Z12.31 Encounter for screening mammogram for malignant neoplasm of breast (principal)
CPT/HCPCS: 77063; 77067

== ENCOUNTER 2023-05-23 07:25 | Outpatient (CLI) | payer BC, SELFPAY ==
--- NOTE | ~2023-05-23 | MM_ITS ---
EXAMINATION: MM screening gokul BI w raza HISTORY: Screening mammogram TECHNIQUE: Craniocaudal and mediolateral oblique 3-D tomosynthesis images were obtained and synthetic 2-D images were generated. CAD analysis was submitted and interpreted. COMPARISON: 04/26/2022, 04/24/2021, 04/20/2020 bilateral screening mammogram examinations BREAST PARENCHYMAL COMPOSITION: There are scattered areas of fibroglandular density. FINDINGS: There is no evidence of suspicious mass, calcification, or architectural distortion to sugg est malignancy in either breast. There has been no suspicious interval change. IMPRESSION: 1. No mammographic evidence of malignancy. 2. Recommend routine screening mammography in one year. BI-RADS Category 1: Negative Reviewed, dictated and finalized at location A.
== END 2023-05-23 07:26 | disposition home or self-care (01) ==
PROVIDERS: PCP Physician Assistant; Visit Provider Obstetrics & Gynecology
DX: Z12.31 Encounter for screening mammogram for malignant neoplasm of breast (principal)
CPT/HCPCS: 77063; 77067

== ENCOUNTER 2024-07-13 07:39 | Outpatient (CLI) | payer BC, SELFPAY ==
--- NOTE | ~2024-07-13 | MM_ITS ---
EXAMINATION: MM screening gokul BI w raza HISTORY: Screening TECHNIQUE: Craniocaudal and mediolateral oblique 3-D tomosynthesis images were obtained and synthetic 2-D images were generated. CAD analysis was submitted and interpreted. COMPARISON: Comparison to multiple prior studies sequentially, with oldest reviewed study dated 04/20. BREAST PARENCHYMAL COMPOSITION: Not dense: There are scattered areas of fibroglandular density. FINDINGS: There is no evidence of suspicious mass, calcification, or architectural distortion to sugg est malignancy in either breast. There has been no suspicious interval change. IMPRESSION: 1. No mammographic evidence of malignancy. 2. Recommend routine screening mammography in one year. BI-RADS Category 1: Negative Reviewed, dictated and finalized at location B. [employer]
--- OUTSIDE RECORDS SUMMARY | 2024-07-18 20:24 | XMS_ITS | Referral Summary ---
Author Organization [facility] Address [address] [place] [address] Care Team Providers Care Corn Husk Baler Name Role Phone Starr Bran Primary Care Provider [phone] Bibiana Schuler MD Unavailable [phone] Cornelius Garcia DO Unavailable [phone] Madhu Brito MD Unavailable [phone] Encounters Date Type Department Care Team Description 07/16/2024 9:30 AM CLINICAL PROGRAM MANAGER Clinical Support [address] [place] [phone] Vitamin B deficiency (Primar y Dx) 07/14/[address] [phone] Jing Erwin PA 07/13/2024 Orders Only [address] [place] [phone] Provider, MD Saloni 07/13/2024 9:30 AM CLINICAL PROGRAM MANAGER Therapy [facility] OP Physical Therapy [facility] [address] Paresthesia of hand, bilater al 07/01/2024 10:00 AM CLINICAL PROGRAM MANAGER Office Visit [address] [place] [phone] Starr Bran PA Annual physical exam (Primary Dx); Low vitamin B12 level; Vasomotor symptoms due to menopause; Moderate episode of recurrent major depressive disorder (HCC); Hyperglycemia; Essential hypertension; Vitamin D deficiency; Anemia, unspecified type; Morbid obesity (HCC); BMI 38.0-38.9,adult 06/18/2024 8:00 AM CLINICAL PROGRAM MANAGER Lab [facility] at [address] [address] Iron deficiency anemia due t o chronic blood loss 06/18/2024 8:45 AM CLINICAL PROGRAM MANAGER Office Visit [facility] Oncology [address] [place] [address] [address] [place] [address] Cornelius Garcia DO History of pulmonary embolus (PE) (Primary Dx); History of DVT (deep vein thrombosis); Iron deficiency anemia due to chronic blood loss 06/15/2024 10:30 AM CLINICAL PROGRAM MANAGER Office Visit [address] [phone] Jing Erwin PA Systemic sclerosis (HCC) (Primary Dx); PHAN (dyspnea on exertion); Arthralgia of right hand; 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; Paresthesia of hand, bilateral 06/11/2024 8:45 AM CLINICAL PROGRAM MANAGER Lab [facility] at [address] [address] Iron deficiency anemia due t o chronic blood loss 06/04/2024 8:00 AM CLINICAL PROGRAM MANAGER Lab [facility] at [address] [address] Iron deficiency anemia due t o chronic blood loss 05/28/2024 7:45 AM CDT Lab [facility] at [address] [address] Iron deficiency anemia due t o chronic blood loss 05/26/2024 Orders Only [facility] Family Medicine [address] [facility] [address] [place] [phone] Starr Bran PA Essential hypertension (Primary Dx); B12 deficiency; Hyperglycemia; Vitamin D deficiency; BMI 36.0-36.9,adult; Other fatigue; Hyperlipidemia, unspecified hyperlipidemia type 05/22/2024 11:15 AM CDT - 05/22/2024 11:45 AM CDT Surgery [facility] [address] [place] [address] Bibiana Schuler MD ESOPHAGOGASTRODUODENOSCOPY WITH ABLATION 05/22/2024 11:36 AM CDT Anesthesia Event [facility] Lab [address] [place] [phone] Tommy Gonzalez MD 05/22/2024 10:08 AM CDT - 05/22/2024 12:38 PM CDT Hospital Encounter [facility] [address] [place] [phone] Bibiana Schuler MD Discharge Disposition: Discharge to home or self care 05/21/2024 7:45 AM CDT Lab [facility] at [address] [address] Iron deficiency anemia due t o chronic blood loss 05/21/2024 8:15 AM CDT Infusion [facility] at [address] [phone] Iron deficiency anemia due t o chronic blood loss (Primary Dx) 05/20/2024 9:30 AM CDT Clinical Support [facility] Family Medicine [address] [phone] 05/14/2024 8:00 AM CDT Lab [facility] at [address] [address] Iron deficiency anemia due t o chronic blood loss 05/14/2024 8:45 AM CDT Infusion [facility] at [address] [phone] Iron deficiency anemia due t o chronic blood loss (Primary Dx) 05/11/2024 8:15 AM CDT Infusion [facility] at [address] [place] [phone] Iron deficiency anemia due t o chronic blood loss (Primary Dx) 05/08/2024 Telephone [facility] Oncology [address] [place] [address] [address] [place] [address] Chiquita Nguyen RN 05/07/2024 Orders Only [facility] at [address] [address] Cornelius Garcia DO 05/07/2024 10:30 AM CDT Lab [facility] at [address] [address] History of DVT (deep vein thrombosis); History of pulmonary embolus (PE); Iron deficiency anemia due to chronic blood loss 05/07/2024 11:00 AM CDT Office Visit [facility] Oncology [address] [place] [phone] Cornelius Garcia DO Iron deficiency anemia due to chronic blood loss (Primary Dx); History of DVT (deep vein thrombosis); History of pulmonary embolus (PE) 04/22/2024 10:00 AM CDT Clinical Support [facility] Family Medicine [facility] [address] [address] Vitamin B deficiency (Primar y Dx) from Last 3 Months Allergies No known active allergies Medications multivitamin tablet daily Active omeprazole (PriLOSEC) 20 mg capsule Take 2 capsules (40 mg total) by mouth daily Active FeroSuL 325 mg (65 mg iron) tabletIndicati ons:Low vitamin B12 level TAKE 1 TABLET BY MOUTH TWICE DAILY 180 tablet 2 4 Active mycophenolate mofetil (CELLCEPT) 500 mg tablet Take 2 tablets (1,000 mg total) by mouth 2 (two) times a day 360 tablet 4 Active gabapentin (NEURONTIN) 300 mg capsuleIndicat ions:Vasomotor phenomenon TAKE 1 CAPSULE BY MOUTH AT NIGHT 90 capsule 1 4 Active aspirin 81 mg enteric coated tablet Take 1 tablet (81 mg total) by mouth daily Active lisinopriL (PRINIVIL,ZEST RIL) 10 mg tablet TAKE 1 TABLET DAILY 90 tablet 3 4 Active amoxicillin-cl avulanate (AUGMENTIN) 875-125 mg per tablet Take 1 tablet by mouth 2 (two) times a day for 10 days 20 tablet 4 024 Active venlafaxine XR (EFFEXOR-XR) 75 mg 24 hr capsule TAKE 3 CAPSULES DAILY WITH FOOD (DOSE INCREASE TO 225 MG. STOP 150 MG) 270 capsule 3 4 024 Discontinued lisinopriL (PRINIVIL,ZEST RIL) 10 mg tablet Take 1 tablet (10 mg total) by mouth daily 4 Discontinued Hospital, Clinic, or Other Facility Administered Medication Ordered Dose Route Frequency Start Date End Date Status cyanocobalamin (Vitamin B-12) injection 1,000 mcgIndications:Low vitamin B12 level 1000 mcg IM Every 30 days 10/04/2022 Acti ve cyanocobalamin (Vitamin B-12) injection 1,000 mcgIndications:Low serum vitamin B12 1000 mcg IM Every 30 days 07/09/2023 Active cyanocobalamin (Vitamin B-12) injection 1,000 mcgIndications:Vitamin B12 deficiency 1000 mcg IM Every 30 days 12/18/2023 Active cyanocobalamin (Vitamin B-12) injection 1,000 mcgIndications:B12 deficiency 1000 mcg IM Every 30 days 03/18/2024 Active cyanocobalamin (Vitamin B-12) injection 1,000 mcgIndications:Vitamin B deficiency 1000 mcg IM Every 30 days 04/22/2024 Active cyanocobalamin (Vitamin B-12) injection 1,000 mcgIndications:Vitamin B deficiency 1000 mcg IM Every 30 days 07/16/2024 Active Active Problems Problem Noted Date Diagnosed Date Annual physical exam 07/12/2024 Assessment & Plan (07/12/2024 8:31 PM CLINICAL PROGRAM MANAGER): Encouraged healthy lifestyle, good nutrition and exercise. Encouraged Calcium and Vitamin D and weight bearing exercise for bone health. Reviewed immunizations Reviewed age appropirate screenings. Paresthesia of hand, bilateral 06/15/2024 Overview (07/14/2024): EMG/NCS BUE 06/2024: electrodiagnostic evidence of a mild bilateral median motor-sensory focal distal neuropathy at the wrist, which could represent a bilateral carpal tunnel syndrome. Findings are about the same on the right and left side. Assessment & Plan (06/15/2024 10:52 AM CLINICAL PROGRAM MANAGER): Get bilateral UE EMG/NCS to evaluate for carpal vs cubital tunnel syndrome. Recommend wearing wrist splints at night. Bilateral lower extremity edema 03/09/2024 Assessment & Plan (03/09/2024 12:05 PM CDT): Recommend compression stockings and elevating legs while sitting. BP slightly elevated today but she notes this is normally well controlled. Mariano's cyst of knee, right 11/21/2023 Assessment & Plan (11/21/2023 8:34 AM CDT): Patient with right calf lower extremity pain with history of DVT and PE in the past. Stat venous Doppler obtained. Verbal report was negative for DVT but she does have an enlarged hypoechoic cyst that is probably in his large Mariano's cyst. This probably accounts for her symptoms. Patient was notified of the negative DVT by the tech. Attempted to call patient the same night of service and unable to reach her. Patient was notified the following day. Encouraged gentle compression to the area ice or heat as tolerated. Will refer to orthopedics for further evaluation it is currently pretty symptomatic affecting her movement. B12 deficiency 10/06/2023 Assessment & Plan (02/02/2024 9:49 PM CDT): Continue B12 Assessment & Plan (11/21/2023 8:34 AM CDT): B12 injection provided in the office today Systemic sclerosis 07/11/2023 Overview (12/20/2023): Labs 05/18/23: Negative LAC, negative ALEXA, CRP 0.29mg/dL, ESR 6, Hep panel negative AVISE 10/21/23: +AMINA 1:2560 centromere, CENP >240, RF IgM 20, normal C3/4 CXR 05/2023: unremarkable US right hand/wrist (08/01/22): Grade 2 power doppler in the radial scaphoid joint. Grade 1 power doppler in the wrist. Small grade 1 effusion in the volar 5th PIP joint. Moderate synovial thickening in the 2nd and 3rd PIP joints. Cortical defect in the 5th metacarpal head without surrounding inflammatory signals. US right hand/wrist (12/18/23):Grade 1 power doppler in the wrist and 2nd PIP joint. Marked synovial thickening in the 2nd and 3rd PIP joints. A mildly enlarged median nerve at 0.13 cm2 is identified. 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 Rheumatologic evaluation revealed +AMINA 1:2560 centromere pattern and +CENP >240 along with low positive RF IgM (20). LAC and ALEXA were negative. Baseline TTE showed grade 1 diastolic dysfunction which was also noted on TTE in 2020 however there are no signs to suggest PAH. PFT showed mildly reduced DLCO but otherwise this is not too concerning and will just continue to monitor. Fingers appear puffy but there is no obvious synovitis or sclerodactyly. Denies photosensitivity, rashes, sicca, dysphagia, raynaud's, oral/nasal sores. +AMINA and CENP along with hx of GAVE are consistent with scleroderma. Baseline PFT and TTE (08/2023) are reassuring and do not suggest PAH at this time. Continue cellcept 1000mg BID. Routine labs today. Follow up in 3 months. Sooner if needed. 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 Rheumatologic evaluation revealed +AMINA 1:2560 centromere pattern and +CENP >240 along with low positive RF IgM (20). LAC and ALEXA were negative. Baseline TTE showed grade 1 diastolic dysfunction which was also noted on TTE in 2020 however there are no signs to suggest PAH. PFT showed mildly reduced DLCO but otherwise this is not too concerning and will just continue to monitor. Fingers appear puffy but there is no obvious synovitis or sclerodactyly. Denies photosensitivity, rashes, sicca, dysphagia, raynaud's, oral/nasal sores. +AMINA and CENP along with hx of GAVE are consistent with scleroderma. Baseline PFT and TTE are reassuring and do not suggest PAH at this time. Continue cellcept 1000mg BID. Routine labs today. Follow up in 3 months. Sooner if needed. 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 Rheumatologic evaluation revealed +AMINA 1:2560 centromere pattern and +CENP >240 along with low positive RF IgM (20). LAC and ALEXA were negative. Baseline TTE showed grade 1 diastolic dysfunction which was also noted on TTE in 2020 however there are no signs to suggest PAH. PFT showed mildly reduced DLCO but otherwise this is not too concerning and will just continue to monitor. Fingers appear puffy but there is no obvious synovitis or sclerodactyly. Denies photosensitivity, rashes, sicca, dysphagia, raynaud's, oral/nasal sores. +AMINA and CENP along with hx of GAVE are consistent with scleroderma. Baseline PFT and TTE are reassuring and do not suggest PAH at this time. Continue cellcept 1000mg BID. Routine labs today. Follow up in 3 months. Sooner if needed. Assessment & Plan (11/21/2023 9:17 AM CDT): Continue per Rheumatology. Patient is at a higher risk for clotting issues with the scleroderma and history of PE DVT. 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 Denies dysphagia and raynaud's. Fingers appear puffy but there is no obvious synovitis or sclerodactyly. Denies photosensitivity, rashes, sicca, oral/nasal sores. Rheumatologic work up revealed +AMINA 1:2560 centromere pattern and +CENP >240 along with low positive RF IgM (20). LAC and ALEXA were negative. ESR/CRP were normal. CXR is unremarkable. Started Cellcept in 06/2023 without s/e and is tolerating increased dose. Baseline TTE showed grade 1 diastolic dysfunction which was also noted on TTE in 2020 however there are no signs to suggest PAH. PFT showed mildly reduced DLCO but otherwise this is not too concerning and will just continue to monitor. +AMINA and CENP along with hx of GAVE are consistent with scleroderma. Baseline PFT and TTE are reassuring and do not suggest PAH at this time. Continue cellcept 1000mg BID. Routine labs today. Follow up in 3months. Sooner if needed. 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 Denies dysphagia and raynaud's. Fingers appear puffy but there is no obvious synovitis or sclerodactyly. Denies photosensitivity, rashes, sicca, oral/nasal sores. Rheumatologic work up revealed +AMINA 1:2560 centromere pattern and +CENP >240 along with low positive RF IgM (20). LAC and ALEXA were negative. ESR/CRP were normal. CXR is unremarkable. Started Cellcept 500mg BID last visit without any s/e. +AMINA and CENP along with hx of GAVE are consistent with scleroderma. Will get baseline TTE and PFT rescheduled before next visit and will call with results. Increase cellcept 1000mg BID to reach a more therapeutic dose. Routine labs today. Follow up in 4 weeks. Sooner if needed. Assessment & Plan (07/11/2023 1:20 PM CLINICAL PROGRAM MANAGER): 58-year-old female with PMHx of RLS, anemia 2/2 gastric antral vascular ectasia (GAVE), vasomotor symptoms 2/2 menopause, HTN, Hx PE, and Hx RLE DVT c/o +AMINA >1:1280 centromere pattern along with PHAN. Denies dysphagia and raynaud's. Fingers appear puffy but there is no obvious synovitis or sclerodactyly. Denies photosensitivity, rashes, sicca, oral/nasal sores. Rheumatologic work up revealed +AMINA 1:2560 centromere pattern and =CENP >240 along with low positive RF IgM (20). LAC and ALEXA were negative. ESR/CRP were normal. CXR is unremarkable. +AMINA and CENP along with hx of GAVE are consistent with scleroderma. Will get baseline TTE and PFT. Start cellcept 500mg BID. Discussed potential side effects, including but not limited to rash, increased infections, blood count abnormalities. Follow up in 4 weeks. Sooner if needed. Seen with Dr. Brito. 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 Denies dysphagia and raynaud's. Fingers appear puffy but there is no obvious synovitis or sclerodactyly. Denies photosensitivity, rashes, sicca, oral/nasal sores. Symptoms and exam are suspicious for scleroderma. Will order appropriate serologies and CXR to further evaluate. If serologies are consistent with scleroderma, will order baseline TTE and PFT next visit. GAVE syndrome can be associated with scleroderma. Follow up in 2 weeks. Sooner if needed. Seen with Dr. Brito. Assessment & Plan (05/18/2023 11:47 AM CDT): 04/2023----1:1280 Titer with Centromere Pattern Reviewed results with patient. She has had many unexplained medical issues over the last few years including non provoked blood clotting/pulmonary embolism. AMINA had remain negative until this tighter that came back with a solid high. Will make referral to Rheumatology for assistance and further evaluation to see if there is an underlying autoimmune condition contributing to her symptoms. Morbid obesity 05/09/2023 Assessment & Plan (07/12/2024 8:31 PM CLINICAL PROGRAM MANAGER): Discussed the patient's BMI. The BMI is above average. BMI management plan is completed. BMI Follow-up includes: nutrition counseling, exercise counseling and education provided. Patient has an obesity-related condition (not limited to: hypertension, obstructive sleep apnea, osteoarthritis, hyperlipidemia, diabetes, etc.). Therefore, morbid obesity may be documented for patients with a BMI between 35.00-39.99. Assessment & Plan (11/21/2023 8:34 AM CDT): Discussed the patient's BMI. The BMI is above average. BMI management plan is completed. BMI Follow-up includes: nutrition counseling, exercise counseling and education provided. Patient has an obesity-related condition (not limited to: hypertension, obstructive sleep apnea, osteoarthritis, hyperlipidemia, diabetes, etc.). Therefore, morbid obesity may be documented for patients with a BMI between 35.00-39.99. Assessment & Plan (10/06/2023 5:11 PM CDT): Discussed the patient's BMI. The BMI is above average. BMI management plan is completed. BMI Follow-up includes: nutrition counseling, exercise counseling and education provided. Patient has an obesity-related condition (not limited to: hypertension, obstructive sleep apnea, osteoarthritis, hyperlipidemia, diabetes, etc.). Therefore, morbid obesity may be documented for patients with a BMI between 35.00-39.99. Assessment & Plan (05/18/2023 11:51 AM CDT): Discussed the patient's BMI. The BMI is above average. BMI management plan is completed. BMI Follow-up includes: nutrition counseling, exercise counseling and education provided. Restless legs 03/31/2023 Assessment & Plan (10/06/2023 5:11 PM CDT): Patient with restless leg. We will make sure labs continue to remain stable. Continue with the gabapentin Assessment & Plan (05/18/2023 11:51 AM CDT): Restless leg seems to be related to the iron-deficiency. Will see what Dr. Garcia says. Will continue with the gabapentin as it definitely helps. Can consider increasing as needed. Assessment & Plan (03/31/2023 10:44 PM CDT): Tolerating a gabapentin with some improvement. Continue 100 mg in the a.m. increase to 300 mg HS. Kit it monitor closely Arthralgia 02/05/2023 Assessment & Plan (06/15/2024 10:09 AM CLINICAL PROGRAM MANAGER): Elevated RF (20) on AVISE. C/o pain and AM swelling/stiffness in the hands (R>L) that appears to have progressed so repeated R hand/wrist US (11/2023) that did not show any signs to suggest an inflammatory arthritis. Assessment & Plan (03/09/2024 11:49 AM CDT): Elevated RF (20) on AVISE. C/o pain and AM swelling/stiffness in the hands (R>L) that appears to have progressed so repeated R hand/wrist US (11/2023) that did not show any signs to suggest an inflammatory arthritis. Assessment & Plan (12/09/2023 1:45 PM CDT): Elevated RF (20) on AVISE. C/o pain and AM swelling/stiffness in the hands (R>L) that appears to have progressed so will repeat R hand/wrist US to monitor for any progression to suggest active RA. Assessment & Plan (09/12/2023 2:04 PM CLINICAL PROGRAM MANAGER): Elevated RF (20) on AVISE. C/o pain and AM swelling/stiffness in the hands (R>L) but does not limit her daily activities and is overall tolerable. US R hand/wrist (07/2022) showed mild inflammatory findings but nothing obvious to suspect active RA at this time so will just continue to monitor symptoms. Assessment & Plan (08/08/2023 2:10 PM CLINICAL PROGRAM MANAGER): Elevated RF (20) on AVISE. Now c/o new pain in R 5th PIP along with AM stiffness in the lower extremities. US R hand/wrist (07/2022) showed mild inflammatory findings but nothing obvious to suspect active RA at this time so will just continue to monitor symptoms. Assessment & Plan (07/11/2023 1:22 PM CLINICAL PROGRAM MANAGER): Elevated RF (20) on AVISE. Now c/o new pain in R 5th PIP along with AM stiffness in the lower extremities. Will get baseline hand US to further evaluate for any signs to suggest overlapping RA. Assessment & Plan (03/31/2023 10:44 PM CDT): Check AMINA Assessment & Plan (02/05/2023 1:52 PM CDT): Patient complaining of bilateral leg pain during sleep. AMINA will be checks to further investigate autoimmune processes. Anemia 09/06/2022 Assessment & Plan (07/12/2024 8:29 PM CLINICAL PROGRAM MANAGER): Anemia had normalized. She used anticoagulation over the summer after rule out DVT turned out to be a Mariano's cyst. With her history of scleroderma she was at increased risk so anticoagulation was continued after discussion with Dr. Albert. Her H and H started to drop was determined she will need to stay off of it. Will continue to monitor. Assessment & Plan (05/18/2023 11:50 AM CDT): Patient with known anemia. Has had multiple iron infusions to help with the iron deficiency. She is noting increased restless leg and fatigue which are her signs. Hemoglobins have again dropped down to 10.5 and her iron saturation down to 13. Had hysterectomy and felt like this was going to help improve and stabilize her symptoms but she continues to drop. I will reach out to Dr. Garcia to see if intervention is needed for another infusion verses monitoring based on her current labs. Continue B12 supplementation Assessment & Plan (02/05/2023 1:42 PM CDT): Patient's iron deficiency anemia appears to be resolved/well managed. Continues to follow with Dr. Garcia's office. Will continue iron supplement. Also follows with Dr. Schuler for other underlying causes of iron deficiency anemia. They completed EGD with ablation on 12/07/2022 Fatigue 05/26/2022 Assessment & Plan (02/05/2023 1:53 PM CDT): Fatigue is likely multifactorial. We will evaluate labs for any underlying abnormalities that the fatigue may be attributed to. We discussed the possibility of sleep apnea as well as the necessary workup and treatment. Patient decided that she does not wish to undergo evaluation at this time but rather work on improving her other complaints at this time. Assessment & Plan (07/31/2022 3:14 PM CLINICAL PROGRAM MANAGER): Probably multifactorial. Check labs and followup to re-evaluate Assessment & Plan (05/26/2022 12:34 PM CDT): Probably multifactorial. Check labs and followup to re-evaluate Vasomotor symptoms due to menopause 08/31/2021 Assessment & Plan (07/12/2024 8:30 PM CLINICAL PROGRAM MANAGER): Vasomotor symptoms have stabilized. She discontinued the Effexor 225 and is doing well Assessment & Plan (05/18/2023 11:49 AM CDT): Symptoms still stable. Using Effexor 225 for vasomotor symptoms as well as depression. Assessment & Plan (03/31/2023 10:44 PM CDT): Continue Effexor 225 Assessment & Plan (02/05/2023 3:21 PM CDT): This is a significant, separately identifiable problem that was evaluated and managed on the same day as the wellness exam Symptoms do not appear well controled on Effexor 225 mg. Plan is to add Gapapentin. Begin with 100 mg in the AM and 200 mg in the PM. Return to office in 4-8 weeks. We will re-evaluate her symptoms as possibly increase the dose to manage her symptoms. We discussed that this may also help with the pain and restlessness that she is experiencing in her legs at night. Continue Effexor 225 mg. Assessment & Plan (10/06/2022 10:25 PM CLINICAL PROGRAM MANAGER): Stable with Effexor 225 Assessment & Plan (07/31/2022 3:14 PM CLINICAL PROGRAM MANAGER): Continue Effexor 225 daily Assessment & Plan (01/21/2022 9:19 PM CDT): Will increase the Effexor to 225 mg. Will see if this helps with the vasomotor symptoms as well as her depression Assessment & Plan (10/16/2021 9:46 AM CDT): Continue the Effexor Assessment & Plan (08/31/2021 9:43 PM CLINICAL PROGRAM MANAGER): Status post hysterectomy with bilateral salpingo oophorectomy. She is unable to tolerate estrogen due to history of DVT and PE. She has been on Effexor 75 mg and is not getting full control of her vasomotor symptoms so will increase to 150 mg. Follow-up in 6-8 weeks to reassess H/O total hysterectomy with bilateral salpingo-oophorectomy (BSO) 08/29/2021 Overview (08/29/2021): 07/2021 Dr. Gentry OSEGUERA with BSO Assessment & Plan (02/05/2023 1:43 PM CDT): 07/2021 Dr. Gentry OSEGUERA with BSO Discussed that patient no longer needs PAP Assessment & Plan (08/31/2021 9:41 PM CLINICAL PROGRAM MANAGER): Status post hysterectomy with bilateral salpingo oophorectomy. She is unable to tolerate estrogen due to history of DVT and PE. She has been on Effexor 75 mg and is not getting full control of her vasomotor symptoms so will increase to 150 mg. Follow-up in 6-8 weeks to reassess Moderate episode of recurrent major depressive d isorder 04/23/2021 Assessment & Plan (07/12/2024 8:30 PM CLINICAL PROGRAM MANAGER): Depression symptoms have stabilized. She stopped the Effexor primarily because she felt like her perimenopausal symptoms head resolved. Will continue to monitor at this point. Assessment & Plan (10/06/2023 5:11 PM CDT): Continue venlafaxine 225 mg daily Assessment & Plan (05/18/2023 11:49 AM CDT): Symptoms still stable. Using Effexor 225 for vasomotor symptoms as well as depression. Assessment & Plan (10/06/2022 10:25 PM CLINICAL PROGRAM MANAGER): Stable with venlafaxine 225 mg Assessment & Plan (07/31/2022 3:13 PM CLINICAL PROGRAM MANAGER): Continue with the Effexor 225 daily Assessment & Plan (05/26/2022 12:32 PM CDT): Continue Effexor Assessment & Plan (01/21/2022 9:19 PM CDT): Increase the venlafaxine to 225 mg daily. Will see if this helps with her vasomotor symptoms as well as continue to manage her depression symptoms. Assessment & Plan (10/16/2021 9:46 AM CDT): Continue with the Effexor XR 150 mg. She definitely has seen improvement with the increase in dose. If symptoms plateau may need to increase the dose. Assessment & Plan (08/31/2021 9:40 PM CLINICAL PROGRAM MANAGER): Increase Effexor to 150 mg. Continue to monitor Assessment & Plan (05/17/2021 10:21 PM CDT): Patient is beginning to see improvement with the Effexor 75 mg. She is feeling less stressed. She is sleeping better. She is less worried. She would like to continue with the same dose. Assessment & Plan (04/23/2021 2:37 PM CDT): Discussed depression symptoms at length. She also has some underlying anxiety that has been present for a very long time. Reviewed risks benefits alternatives side effects and proper use of available medications. Start Effexor 37.5 mg taking 1 tablet daily will reassess in 3-4 weeks and continue to titrate up to symptoms are better controlled. She currently denies any suicidal or homicidal thoughts. If this occurs she is to contact the office immediately for further assistance. She may also benefit from counseling. SOB (shortness of breath) 02/19/2021 History of pulmonary embolus (PE) 11/15/2020 Overview (11/15/2020): 10/2020 (B) PE with DVT Assessment & Plan (02/02/2024 9:49 PM CDT): History embolism, DVT and . This is decide and dry. Started to if she would any signs or symptoms of the day she immediately Assessment & Plan (05/17/2021 10:19 PM CDT): History of bilateral PE with DVT. Still on Eliquis. Will be on Eliquis lifetime. Assessment & Plan (04/23/2021 2:35 PM CDT): Continue eliquis. Tolerating well. Assessment & Plan (02/19/2021 9:52 PM CDT): Continue AC Eliquis Recheck CT chest as had extensive (B) PE and she has continued to have intermittent SOB Assessment & Plan (12/14/2020 2:19 PM CDT): Tolerating the Eliquis. Will continue to monitor. She is to call with any increased symptoms. Assessment & Plan (11/15/2020 11:10 PM CDT): Patient on Eliquis.5mg bid. Transitioned this week so plan to continue thru April 28 and then reassess Has followup with [facility] Awaiting clotting workup results. 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 She has been doing injections every month and her level continues to drop into the mid 300s. Suggest doing every 3rd week. 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 Assessment & Plan (10/16/2021 9:46 AM CDT): Recheck B12 levels Assessment & Plan (05/17/2021 10:20 PM CDT): Continue B12 injections Q 12 weeks. Last B12 level was in range. Assessment & Plan (04/23/2021 2:36 PM CDT): Continue B12 injections q 2weeks Assessment & Plan (02/19/2021 9:52 PM CDT): B12 is low with monthly B12 so will go to 2 times a month Assessment & Plan (12/14/2020 2:20 PM CDT): Continue with monthly B12 IM injections. Will recheck labs in mid to late December to see if she is keeping a steady state of the B12 if dropping significantly may need to decrease the duration between the injections. Assessment & Plan (11/15/2020 11:09 PM CDT): Continue IM supplement. She will recv today and tommorow then Qweek x 4. Check labs History of DVT (deep vein thrombosis) 11/15/2020 Overview (11/15/2020): 10/2020 Right LE with (B) PE Assessment & Plan (11/21/2023 8:36 AM CDT): Patient had a right DVT with bilateral pulmonary emboli in 2020. She was on anticoagulation for about a year. Has been following with Hematology and was decided to discontinue the anticoagulation and monitor. She has since been diagnosed with scleroderma which can increase that risk of clotting issues. I will reach out her community reinvestment act officer and inquire about the benefit and risks of monitoring versus lifetime anticoagulation based on the new diagnosis. Assessment & Plan (08/31/2021 9:40 PM CLINICAL PROGRAM MANAGER): Hematology has instructed her to stop the Eliquis. She is to continue to monitor for any return signs or symptoms. Avoid estrogen. Assessment & Plan (05/17/2021 10:20 PM CDT): DVT. She is continuing with the Eliquis. Assessment & Plan (02/19/2021 9:52 PM CDT): Continue Eliquis Assessment & Plan (12/14/2020 2:19 PM CDT): Right leg is still significantly swollen. Pain is minimal. Continue with compression stockings and elevation. Call with any increased symptoms. She is tolerating the Eliquis well. Eliquis was started in October of 2020 Assessment & Plan (11/15/2020 11:11 PM CDT): Continue Eliquis 5mg bid x 6 months. Continue to assess and wait for clotting workup. Acute pain of left knee 11/15/2020 Assessment & Plan (12/14/2020 2:17 PM CDT): Improving with PT Assessment & Plan (11/15/2020 11:13 PM CDT): Start PT Avoid NSAIDs. 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 Improvement of anemia since starting treatment with cellcept in 06/2023. 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 Improvement of anemia since starting treatment with cellcept in 06/2023. 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 Will better evaluate serologies with [facility] panel today. Assessment & Plan (02/05/2023 1:44 PM CDT): Patient's iron deficiency anemia appears to be resolved/well managed. Continues to follow with Dr. Garcia's office. Will continue iron supplement. Also follows with Dr. Schuler for other underlying causes of iron deficiency anemia. They completed EGD with ablation on 12/07/2022 Assessment & Plan (10/06/2022 10:25 PM CLINICAL PROGRAM MANAGER): Persistent anemia. Appears to be secondary to GI cause. Continue per Dr. Schuler. Continue with iron vitamin-C supplement Continue B12 supplementation Assessment & Plan (07/31/2022 3:13 PM CLINICAL PROGRAM MANAGER): Persistent anemia that appears to be GI related. Continue per Dr. Schuler. She has this watermelon stomach. His office is ordering a liver ultrasound to rule out any type of cirrhotic type changes. She was started on Prilosec and sucralfate and will follow-up in a few months to reassess. Patient states stomach ablation was also discussed. Will await their recommendation as she continues to have persistent anemia that is corrected with infusions but then declines again and with this cycling is having anemic symptoms and is feeling horrible. Assessment & Plan (05/26/2022 12:31 PM CDT): Patient with history of iron deficiency anemia. Had menorrhagia status post hysterectomy in July of 2021. In the summer her iron indices were back to normal. Will need to recheck the lab work again for anemia status. She feels like the symptoms are back as she just feels like a train wreck. She is still on daily iron orally. Her B12 has also been corrected. Assessment & Plan (01/21/2022 9:18 PM CDT): Recheck labs. Continue with iron supplementation and B12 supplementation. Follow-up pending the results if she is having fatigue and similar symptoms to when her iron is low Assessment & Plan (10/16/2021 9:46 AM CDT): Continue per Dr. Garcia. She is continuing to see improvement in her labs. She still on iron supplementation. Planning to recheck 6 weeks for labs and continue to follow with Dr. Garcia. Assessment & Plan (05/17/2021 10:19 PM CDT): Patient continues follow-up with Dr. Olea just had her 1st iron infusion and plans on a 2nd. States she sick does not significantly feel better at this point. Assessment & Plan (04/23/2021 2:36 PM CDT): Continue supplement and close monitoring Assessment & Plan (02/19/2021 9:54 PM CDT): Anemic/Iron panel again low. Will consult Dr. Olea to determine if she is a candidate for iron infusion Assessment & Plan (12/14/2020 2:21 PM CDT): Beginning to rebound with iron supplementation. Patient has now stopped the Depo-Provera so she has any bleeding she is to call her scale attendant as I do not want to have this start up to affect the gain that we have had with her hemoglobin. If she has any other signs or symptoms of bleeding she is to call immediately. Will continue to monitor labs with Dr. rocio crabtree. Assessment & Plan (11/15/2020 11:10 PM CDT): Still unknown cause. Awaiting workup/endoscopy results from Dr. Schuler. She has followup soon. Report any bleeding. Check labs Assessment & Plan (10/09/2020 7:53 PM CDT): Significant anemia noted during routine labs. H/H down to 4.6. After recent hospitalization, still unknown underlying cause for the anemia.. Suspect slow GI bleed. 3 units and iron infusion H/H is stable. She has appointment with GI to complete workup. Will recheck labs for stability as she is worried about how fast she could be loosing blood. Continue Iron supplement. Encouraged to add a Vitamin C to assist with absorption. She is to call immediately if she notes blood in her stool or hematemesis. (Stools are black from iron po) PHAN (dyspnea on exertion) 09/25/2020 Overview (09/09/2023): PFT 08/2023: FEV1 88%, FEV1 92%, FEV1/FVC 0.75, DLCO 67% TTE 08/2023: EF 55-60%, grade 1 diastolic dysfunction Assessment & Plan (06/15/2024 10:09 AM CLINICAL PROGRAM MANAGER): CXR unremarkable. Baseline PFT and TTE are unremarkable for signs of PAH. Grade 1 diastolic dysfunction noted on TTE but this was also seen on past TTE in 2020. PFT showed only mildly reduced diffuse capacity. Continues to note PHAN so will monitor symptoms. Should this progress, consider repeating PFT. Assessment & Plan (03/09/2024 12:03 PM CDT): CXR unremarkable. Baseline PFT and TTE are unremarkable for signs of PAH. Grade 1 diastolic dysfunction noted on TTE but this was also seen on past TTE in 2020. PFT showed only mildly reduced diffuse capacity. Continues to note PHAN so will monitor symptoms. Should this progress, consider repeating PFT. Assessment & Plan (12/09/2023 12:03 PM CDT): CXR unremarkable. New diagnosis of systemic sclerosis. Baseline PFT and TTE are unremarkable for signs of PAH. Grade 1 diastolic dysfunction noted on TTE but this was also seen on past TTE in 2020. PFT showed only mildly reduced diffuse capacity. Assessment & Plan (09/12/2023 1:00 PM CLINICAL PROGRAM MANAGER): CXR unremarkable. New diagnosis of systemic sclerosis. Baseline PFT and TTE are unremarkable for signs of PAH. Grade 1 diastolic dysfunction noted on TTE but this was also seen on past TTE in 2020. PFT showed only mildly reduced diffuse capacity. Assessment & Plan (08/08/2023 2:59 PM CLINICAL PROGRAM MANAGER): CXR unremarkable. New diagnosis of systemic sclerosis. Will get baseline PFT and TTE due to risk for pulm artery HTN. Assessment & Plan (07/11/2023 1:20 PM CLINICAL PROGRAM MANAGER): CXR unremarkable. New diagnosis of systemic sclerosis. Will get baseline PFT and TTE due to risk for pulm artery HTN. Assessment & Plan (05/26/2022 12:30 PM CDT): Patient is noting increased shortness of breath. She feels like it is similar to when she has had significant anemia. She is not really having chest pain like she experienced with the PE. Advised to observe very closely she has any increase in symptoms she is to consider the ER over the weekend. She has agreed with the plan. Will check labs to look at her anemia status. Assessment & Plan (02/19/2021 9:55 PM CDT): May be multifactorial. Anemia vs PE vs other etiology. Will check CT for resolution of PE. Await recommendations from Dr. Olea regarding anemia. She is to call if has increased sxs or respiratory issues or cardiac issues. Assessment & Plan (12/14/2020 2:18 PM CDT): Shortness of breath still persists at times although much improved from the initial onset in October. Will continue to monitor her pulmonary embolisms. She is continue with the Eliquis. If she has increases when she is to follow up immediately. Will consider repeat CT of the chest in February. Assessment & Plan (11/15/2020 11:05 PM CDT): Improving. Anemia vs PE vs other etiology Continue to treat both and monitor. Assessment & Plan (10/31/2020 2:55 PM CDT): Persistent SOB that has increase over the last week progressively. Recent history of severe anemia that had improved to Hgb 9.5 (last checked 10/19) Hasn't had labs since. Differential diagnosis includes anemia/active GI bleed small intestines vs pneumonia vs PE vs pleurisy vs other etiology. Recommend to ER immediately as needs labs, CXR/possible CT chest to determine cause of her increasing SOB. She plans to call her to take her to [facility] now. Assessment & Plan (10/09/2020 7:39 PM CDT): Appears to be improving since recving 3 units and H/H stabilized. Will monitor. If returns, may reschedule with Cardio. Assessment & Plan (09/25/2020 9:52 AM CLINICAL PROGRAM MANAGER): Persistent sxs with activity. If she has CP, increased SOB, HR over 120 sustained or syncope she is to go to the ER. Check labs Limit caffeine Refer to cardio for further evaluation. Unable to do EKG as video visit. BMI 38.0-38.9,adult 01/19/2019 Assessment & Plan (07/01/2024 10:10 AM CLINICAL PROGRAM MANAGER): Discussed the patient's BMI. The BMI is above average. BMI management plan is completed. BMI Follow-up includes: nutrition counseling, exercise counseling and education provided. Assessment & Plan (11/21/2023 8:34 AM CDT): Discussed the patient's BMI. The BMI is above average. BMI management plan is completed. BMI Follow-up includes: nutrition counseling, exercise counseling and education provided. Assessment & Plan (06/06/2020 9:20 AM CLINICAL PROGRAM MANAGER): Obesity is unchanged. Discussed the patient's BMI. The BMI is above average. BMI management plan is completed. BMI Follow-up includes: nutrition counseling, exercise counseling and education provided. Assessment & Plan (01/19/2019 3:10 PM CDT): Obesity is unchanged. Discussed the patient's BMI. The BMI is above average; BMI management plan is completed. General weight loss/lifestyle modification strategies discussed (elicit support from others; identify saboteurs; non-food rewards, etc). Encouraged increased exercise. Hyperglycemia 01/19/2019 Assessment & Plan (07/12/2024 8:29 PM CLINICAL PROGRAM MANAGER): Check labs Assessment & Plan (07/31/2022 3:12 PM CLINICAL PROGRAM MANAGER): Check labs Assessment & Plan (05/26/2022 12:29 PM CDT): Pre-diabetes/hyperglycemia is a precursor to Dm. Stressed importance of working on diet (decrease your simple sugars and one carbohydrate with each meal) and increase you exercise to achieve weight loss and this will help prevent you from progressing to diabetes. Assessment & Plan (10/16/2021 9:45 AM CDT): Pre-diabetes/hyperglycemia is a precursor to Dm. Stressed importance of working on diet (decrease your simple sugars and one carbohydrate with each meal) and increase you exercise to achieve weight loss and this will help prevent you from progressing to diabetes. Assessment & Plan (11/15/2020 11:08 PM CDT): Pre-diabetes/hyperglycemia is a precursor to Dm. Stressed importance of working on diet (decrease your simple sugars and one carbohydrate with each meal) and increase you exercise to achieve weight loss and this will help prevent you from progressing to diabetes. Assessment & Plan (09/25/2020 9:53 AM CLINICAL PROGRAM MANAGER): Pre-diabetes/hyperglycemia is a precursor to Dm. Stressed importance of working on diet (decrease your simple sugars and one carbohydrate with each meal) and increase you exercise to achieve weight loss and this will help prevent you from progressing to diabetes. Assessment & Plan (06/06/2020 9:20 AM CLINICAL PROGRAM MANAGER): Pre-diabetes is a precursor to Dm. Stressed importance of working on diet (decrease your simple sugars and one carbohydrate with each meal) and increase you exercise to achieve weight loss and this will help prevent you from progressing to diabetes. Assessment & Plan (01/20/2019 12:32 AM CDT): Pre-diabetes/hyperglycemia is a precursor to Dm. Stressed importance of working on diet (decrease your simple sugars and one carbohydrate with each meal) and increase you exercise to achieve weight loss and this will help prevent you from progressing to diabetes. Other fatigue 01/19/2019 Assessment & Plan (01/21/2022 9:18 PM CDT): Probably multifactorial. Check labs and followup to re-evaluate Assessment & Plan (12/14/2020 2:21 PM CDT): Probably multifactorial. Check labs and followup to re-evaluate Assessment & Plan (09/25/2020 9:53 AM CLINICAL PROGRAM MANAGER): Probably multifactorial. Check labs and followup to re-evaluate Assessment & Plan (06/06/2020 9:20 AM CLINICAL PROGRAM MANAGER): Probably multifactorial. Check labs and followup to re-evaluate Assessment & Plan (01/20/2019 12:32 AM CDT): Probably multifactorial. Check labs and followup to re-evaluate Essential hypertension 01/16/2019 Assessment & Plan (07/12/2024 8:29 PM CLINICAL PROGRAM MANAGER): Bp is stable/in acceptable range for any co-morbidities. Encouraged to limit sodium intake and exercise for weight control. Continue lisinopril 10 Assessment & Plan (10/06/2023 5:08 PM CDT): Bp is stable/in acceptable range for any co-morbidities. Encouraged to limit sodium intake and exercise for weight control. Continue lisinopril 10 Assessment & Plan (05/18/2023 11:47 AM CDT): Bp is stable/in acceptable range for any co-morbidities. Encouraged to limit sodium intake and exercise for weight control. Continue lisinopril 10 Assessment & Plan (02/05/2023 1:43 PM CDT): Blood pressure appears stable on current medication regime. Advised to decrease salt intake. Educated patient on the importance of a healthy lifestyle with diet and exercise on the management of hypertension. Continue medications as prescribed and monitor blood pressure at home as needed. Assessment & Plan (10/06/2022 10:22 PM CLINICAL PROGRAM MANAGER): Bp is stable/in acceptable range for any co-morbidities. Encouraged to limit sodium intake and exercise for weight control. Continue lisinopril 10 Assessment & Plan (07/31/2022 3:12 PM CLINICAL PROGRAM MANAGER): Bp is stable/in acceptable range for any co-morbidities. Encouraged to limit sodium intake and exercise for weight control. Continue lisinopril 10 Assessment & Plan (05/26/2022 12:29 PM CDT): Bp is stable/in acceptable range for any co-morbidities. Encouraged to limit sodium intake and exercise for weight control. Continue lisinopril Assessment & Plan (10/16/2021 9:45 AM CDT): Bp is stable/in acceptable range for any co-morbidities. Encouraged to limit sodium intake and exercise for weight control. Continue lisinopril Assessment & Plan (05/17/2021 10:14 PM CDT): Bp is stable/in acceptable range for any co-morbidities. Encouraged to limit sodium intake and exercise for weight control. Continue lisinopril 10 mg Assessment & Plan (04/23/2021 2:35 PM CDT): Bp is stable/in acceptable range for any co-morbidities. Encouraged to limit sodium intake and exercise for weight control. Continue lisinopril Assessment & Plan (02/19/2021 9:51 PM CDT): Bp is stable/in acceptable range for any co-morbidities. Encouraged to limit sodium intake and exercise for weight control. Continue lisinopril 10mg Assessment & Plan (12/14/2020 2:18 PM CDT): Bp is stable/in acceptable range for any co-morbidities. Encouraged to limit sodium intake and exercise for weight control. Continue lisinopril Assessment & Plan (11/15/2020 11:06 PM CDT): Bp is stable/in acceptable range for any co-morbidities. Encouraged to limit sodium intake and exercise for weight control. Continue lisinopril 10mg Assessment & Plan (10/09/2020 7:40 PM CDT): Bp is stable/in acceptable range for any co-morbidities. Encouraged to limit sodium intake and exercise for weight control. Continue lisinopril 10mg. Monitor closely Assessment & Plan (09/25/2020 9:53 AM CLINICAL PROGRAM MANAGER): Stable by history of home readings. Continue the lisinopril Assessment & Plan (06/06/2020 9:19 AM CLINICAL PROGRAM MANAGER): Bp is stable/in acceptable range for any co-morbidities. Encouraged to limit sodium intake and exercise for weight control. Continue lisinopril Assessment & Plan (01/20/2019 12:31 AM CDT): Bp is stable/in acceptable range for any co-morbidities. Encouraged to limit sodium intake and exercise for weight control. Vitamin D deficiency 01/16/2019 Assessment & Plan (07/12/2024 8:29 PM CLINICAL PROGRAM MANAGER): Supplement Assessment & Plan (10/06/2023 5:10 PM CDT): Supplement Assessment & Plan (05/18/2023 11:47 AM CDT): Continue supplementation Assessment & Plan (02/05/2023 1:50 PM CDT): Continue with daily supplementation Assessment & Plan (07/31/2022 3:12 PM CLINICAL PROGRAM MANAGER): Supplement Assessment & Plan (05/26/2022 12:29 PM CDT): Supplement Assessment & Plan (10/16/2021 9:45 AM CDT): Check labs. She started supplement a couple of weeks ago per Dr. Garcia and will recheck labs to make sure that she is in range. Assessment & Plan (02/19/2021 9:52 PM CDT): supplement Assessment & Plan (12/14/2020 2:19 PM CDT): Supplement Assessment & Plan (11/15/2020 11:07 PM CDT): supplement Assessment & Plan (06/06/2020 9:19 AM CLINICAL PROGRAM MANAGER): supplement Assessment & Plan (01/20/2019 12:31 AM CDT): supplement Resolved Problems Problem Noted Date Diagnosed Date Resolved Date Right calf pain 11/21/2023 02/02/2024 Assessment & Plan (11/21/2023 8:35 AM CDT): Patient with right calf lower extremity pain with history of DVT and PE in the past. Stat venous Doppler obtained. Verbal report was negative for DVT but she does have an enlarged hypoechoic cyst that is probably in his large Mariano's cyst. This probably accounts for her symptoms. Patient was notified of the negative DVT by the tech. Attempted to call patient the same night of service and unable to reach her. Patient was notified the following day. Encouraged gentle compression to the area ice or heat as tolerated. Will refer to orthopedics for further evaluation it is currently pretty symptomatic affecting her movement. Need for immunization against influenza 05/18/2023 10/06/2023 Assessment & Plan (05/18/2023 11:51 AM CDT): Flu vaccine updated in the office today BMI 35.0-35.9,adult 05/09/2023 11/20/19 Assessment & Plan (10/06/2023 5:11 PM CDT): Discussed the patient's BMI. The BMI is above average. BMI management plan is completed. BMI Follow-up includes: nutrition counseling, exercise counseling and education provided. Assessment & Plan (05/18/2023 11:51 AM CDT): Discussed the patient's BMI. The BMI is above average. BMI management plan is completed. BMI Follow-up includes: nutrition counseling, exercise counseling and education provided. Patient has an obesity-related condition (not limited to: hypertension, obstructive sleep apnea, osteoarthritis, hyperlipidemia, diabetes, etc.). Therefore, morbid obesity may be documented for patients with a BMI between 35.00-39.99. Morbid obesity 03/19/2023 05/09/2023 Assessment & Plan (03/31/2023 10:45 PM CDT): Discussed the patient's BMI. The BMI is above average. BMI management plan is completed. BMI Follow-up includes: nutrition counseling, exercise counseling and education provided. Patient has an obesity-related condition (not limited to: hypertension, obstructive sleep apnea, osteoarthritis, hyperlipidemia, diabetes, etc.). Therefore, morbid obesity may be documented for patients with a BMI between 35.00-39.99. BMI 36.0-36.9,adult 03/19/2023 05/09/20 Assessment & Plan (03/19/2023 9:28 AM CDT): Discussed the patient's BMI. The BMI is above average. BMI management plan is completed. BMI Follow-up includes: nutrition counseling, exercise counseling and education provided. Morbid obesity 02/05/2023 03/19/2023 Assessment & Plan (02/05/2023 9:36 AM CDT): Discussed the patient's BMI. The BMI is above average. BMI management plan is completed. BMI Follow-up includes: nutrition counseling, exercise counseling and education provided. BMI 36.0-36.9,adult 02/05/2023 03/19/20 Assessment & Plan (02/05/2023 9:36 AM CDT): Discussed the patient's BMI. The BMI is above average. BMI management plan is completed. BMI Follow-up includes: nutrition counseling, exercise counseling and education provided. Annual physical exam 02/05/2023 023 Assessment & Plan (02/05/2023 3:20 PM CDT): Encouraged healthy lifestyle, good nutrition and exercise. Encouraged Calcium and Vitamin D and weight bearing exercise for bone health. Reviewed immunizations Reviewed age appropirate screenings. BMI 36.0-36.9,adult 10/04/2022 02/06/20 23 Assessment & Plan (10/04/2022 9:08 AM CLINICAL PROGRAM MANAGER): Discussed the patient's BMI. The BMI is above average. BMI management plan is completed. BMI Follow-up includes: nutrition counseling, exercise counseling and education provided. Morbid obesity 10/04/2022 02/05/2023 Assessment & Plan (10/06/2022 10:26 PM CLINICAL PROGRAM MANAGER): Discussed the patient's BMI. The BMI is above average. BMI management plan is completed. BMI Follow-up includes: nutrition counseling, exercise counseling and education provided. Patient has an obesity-related condition (not limited to: hypertension, obstructive sleep apnea, osteoarthritis, hyperlipidemia, diabetes, etc.). Therefore, morbid obesity may be documented for patients with a BMI between 35.00-39.99. Flu vaccine need 05/26/2022 07/30/2022 Assessment & Plan (05/26/2022 12:34 PM CDT): Flu vaccine updated in the office today Vitamin B12 deficiency 05/26/202205/26 Lipid screening 05/26/2022 07/30/2022 Assessment & Plan (05/26/2022 12:35 PM CDT): Check labs Morbid obesity 05/17/2022 10/04/2022 Assessment & Plan (07/31/2022 3:14 PM CLINICAL PROGRAM MANAGER): Discussed the patient's BMI. The BMI is above average. BMI management plan is completed. BMI Follow-up includes: nutrition counseling, exercise counseling and education provided. Assessment & Plan (05/26/2022 12:32 PM CDT): Obesity is unchanged. Discussed the patient's BMI. The BMI is above average. BMI management plan is completed. BMI Follow-up includes: nutrition counseling, exercise counseling and education provided. Patient has an obesity-related condition (not limited to: hypertension, obstructive sleep apnea, osteoarthritis, hyperlipidemia, diabetes, etc.). Therefore, morbid obesity may be documented for patients with a BMI between 35.00-39.99. BMI 36.0-36.9,adult 05/17/2022 10/05/19 Assessment & Plan (07/31/2022 3:14 PM CLINICAL PROGRAM MANAGER): Discussed the patient's BMI. The BMI is above average. BMI management plan is completed. BMI Follow-up includes: nutrition counseling, exercise counseling and education provided. Assessment & Plan (05/17/2022 8:38 AM CDT): Obesity is unchanged. Discussed the patient's BMI. The BMI is above average. BMI management plan is completed. BMI Follow-up includes: nutrition counseling, exercise counseling and education provided. Breast cancer screening by mammogram 01/21/2022 07/30/2022 Assessment & Plan (01/21/2022 9:20 PM CDT): Mammogram order provided Morbid obesity 10/16/2021 05/17/2022 Assessment & Plan (01/21/2022 9:20 PM CDT): Discussed the patient's BMI. The BMI is above average. BMI management plan is completed. BMI Follow-up includes: nutrition counseling, exercise counseling and education provided. Patient has an obesity-related condition (not limited to: hypertension, obstructive sleep apnea, osteoarthritis, hyperlipidemia, diabetes, etc.). Therefore, morbid obesity may be documented for patients with a BMI between 35.00-39.99. Assessment & Plan (10/16/2021 9:01 AM CDT): Obesity is unchanged. Discussed the patient's BMI. The BMI is above average. BMI management plan is completed. BMI Follow-up includes: nutrition counseling, exercise counseling and education provided. BMI 35.0-35.9,adult 10/16/2021 05/17/20 Assessment & Plan (01/21/2022 9:20 PM CDT): Discussed the patient's BMI. The BMI is above average. BMI management plan is completed. BMI Follow-up includes: nutrition counseling, exercise counseling and education provided. Assessment & Plan (10/16/2021 9:01 AM CDT): Obesity is unchanged. Discussed the patient's BMI. The BMI is above average. BMI management plan is completed. BMI Follow-up includes: nutrition counseling, exercise counseling and education provided. Annual physical exam 10/16/2021 022 Assessment & Plan (10/16/2021 9:47 AM CDT): Encouraged healthy lifestyle, good nutrition and exercise. Encouraged Calcium and Vitamin D and weight bearing exercise for bone health. Reviewed immunizations Reviewed age appropirate screenings. Acute non-recurrent maxillary sinusitis 10/16/2021 07/30/2022 Assessment & Plan (10/16/2021 9:48 AM CDT): This is a significant, separately identifiable problem that was evaluated and managed on the same day as the wellness exam Start antibiotic, antihistamine (Claritin OR Zyrtec), Mucinex 12hour and Steroid nasal spray (Flonase). Push fluids. Rest. Supportive care. If sxs worsen or don\'t improve, pt is to followup in the office. Obesity (BMI 30-39.9) 05/17/20212021 Assessment & Plan (08/31/2021 9:41 PM CLINICAL PROGRAM MANAGER): Obesity is unchanged. Discussed the patient's BMI. The BMI is above average. BMI management plan is completed. BMI Follow-up includes: nutrition counseling, exercise counseling and education provided. Assessment & Plan (05/17/2021 10:25 AM CDT): Obesity is unchanged. Discussed the patient's BMI. The BMI is above average. BMI management plan is completed. BMI Follow-up includes: nutrition counseling, exercise counseling and education provided. BMI 35.0-35.9,adult 05/17/2021 10/17/19 22 Assessment & Plan (08/31/2021 9:41 PM CLINICAL PROGRAM MANAGER): Obesity is unchanged. Discussed the patient's BMI. The BMI is above average. BMI management plan is completed. BMI Follow-up includes: nutrition counseling, exercise counseling and education provided. Assessment & Plan (05/17/2021 10:25 AM CDT): Obesity is unchanged. Discussed the patient's BMI. The BMI is above average. BMI management plan is completed. BMI Follow-up includes: nutrition counseling, exercise counseling and education provided. Flu vaccine need 05/17/2021 08/31/2021 Obesity (BMI 30-39.9) 04/12/20212020 Assessment & Plan (04/12/2021 8:45 AM CDT): Obesity is unchanged. Discussed the patient's BMI. The BMI is above average. BMI management plan is completed. BMI Follow-up includes: nutrition counseling, exercise counseling and education provided. BMI 35.0-35.9,adult 04/12/2021 05/17/20 Assessment & Plan (04/12/2021 8:45 AM CDT): Obesity is unchanged. Discussed the patient's BMI. The BMI is above average. BMI management plan is completed. BMI Follow-up includes: nutrition counseling, exercise counseling and education provided. Obesity (BMI 30-39.9) 02/15/20212020 Assessment & Plan (02/15/2021 8:01 AM CDT): Obesity is unchanged. Discussed the patient's BMI. The BMI is above average. BMI management plan is completed. BMI Follow-up includes: nutrition counseling, exercise counseling and education provided. BMI 34.0-34.9,adult 02/15/2021 04/12/20 Assessment & Plan (02/15/2021 8:01 AM CDT): Obesity is unchanged. Discussed the patient's BMI. The BMI is above average. BMI management plan is completed. BMI Follow-up includes: nutrition counseling, exercise counseling and education provided. Obesity (BMI 30-39.9) 12/14/20202020 Assessment & Plan (12/14/2020 10:18 AM CDT): Obesity is unchanged. Discussed the patient's BMI. The BMI is above average. BMI management plan is completed. BMI Follow-up includes: nutrition counseling, exercise counseling and education provided. BMI 34.0-34.9,adult 12/14/2020 02/16/20 Assessment & Plan (12/14/2020 10:18 AM CDT): Obesity is unchanged. Discussed the patient's BMI. The BMI is above average. BMI management plan is completed. BMI Follow-up includes: nutrition counseling, exercise counseling and education provided. Obesity (BMI 30-39.9) 11/15/20202020 Assessment & Plan (11/15/2020 8:32 AM CDT): Obesity is unchanged. Discussed the patient's BMI. The BMI is above average. BMI management plan is completed. BMI Follow-up includes: nutrition counseling, exercise counseling and education provided. BMI 34.0-34.9,adult 11/15/2020 12/15/19 Assessment & Plan (11/15/2020 8:32 AM CDT): Obesity is unchanged. Discussed the patient's BMI. The BMI is above average. BMI management plan is completed. BMI Follow-up includes: nutrition counseling, exercise counseling and education provided. Diabetes mellitus screening 11/15/2020 02/14/2021 Assessment & Plan (11/15/2020 11:10 PM CDT): Check labs Fatigue 11/15/2020 12/14/2020 Assessment & Plan (11/15/2020 11:10 PM CDT): Probably multifactorial. Check labs and followup to re-evaluate Check labs Obesity (BMI 30-39.9) 10/04/20202020 Assessment & Plan (10/31/2020 2:31 PM CDT): Obesity is unchanged. Discussed the patient's BMI. The BMI is above average. BMI management plan is completed. BMI Follow-up includes: nutrition counseling, exercise counseling and education provided. Assessment & Plan (10/04/2020 3:59 PM CLINICAL PROGRAM MANAGER): Obesity is unchanged. Discussed the patient's BMI. The BMI is above average. BMI management plan is completed. BMI Follow-up includes: nutrition counseling, exercise counseling and education provided. BMI 35.0-35.9,adult 10/04/2020 11/16/19 Assessment & Plan (10/31/2020 2:31 PM CDT): Obesity is unchanged. Discussed the patient's BMI. The BMI is above average. BMI management plan is completed. BMI Follow-up includes: nutrition counseling, exercise counseling and education provided. Assessment & Plan (10/04/2020 3:59 PM CLINICAL PROGRAM MANAGER): Obesity is unchanged. Discussed the patient's BMI. The BMI is above average. BMI management plan is completed. BMI Follow-up includes: nutrition counseling, exercise counseling and education provided. Obesity (BMI 30-39.9) 01/19/20192020 Assessment & Plan (06/06/2020 9:19 AM CLINICAL PROGRAM MANAGER): Obesity is unchanged. Discussed the patient's BMI. The BMI is above average. BMI management plan is completed. BMI Follow-up includes: nutrition counseling, exercise counseling and education provided. Assessment & Plan (01/19/2019 3:10 PM CDT): Obesity is unchanged. Discussed the patient's BMI. The BMI is above average; BMI management plan is completed. General weight loss/lifestyle modification strategies discussed (elicit support from others; identify saboteurs; non-food rewards, etc). Encouraged increased exercise. Annual physical exam 01/19/2019 021 Assessment & Plan (06/06/2020 9:21 AM CLINICAL PROGRAM MANAGER): Encouraged healthy lifestyle, good nutrition and exercise. Encouraged Calcium and Vitamin D and weight bearing exercise for bone health. Reviewed immunizations Reviewed age appropirate screenings. Assessment & Plan (01/20/2019 12:32 AM CDT): Encouraged healthy lifestyle, good nutrition and exercise. Encouraged Calcium and Vitamin D and weight bearing exercise for bone health. Reviewed immunizations Reviewed age appropirate screenings. Colon cancer screening 01/19/201906/05 Assessment & Plan (01/20/2019 12:32 AM CDT): cologuard order sent Lipid screening 01/19/2019 02/14/2021 Assessment & Plan (09/25/2020 9:53 AM CLINICAL PROGRAM MANAGER): Check labs Assessment & Plan (01/20/2019 12:32 AM CDT): Check labs Perimenopausal menorrhagia 01/16/2019 0 08/31/2021 Assessment & Plan (05/17/2021 10:15 PM CDT): Patient has had increased bleeding the last few weeks. She is on Eliquis. She had been using Depo-Provera but had to discontinue it after the blood clot. She has already made contact with Dr. Bynum his started on Provera 10 mg x 10 days and she will follow up with him for more definitive plan later in the week. Assessment & Plan (10/09/2020 7:48 PM CDT): History of menorrhagia but has been amenorrheic with DepoProvera. Immunizations Name Administration Dates Next Due Flucelvax Influenza Quad 05/24/2020 Influenza, Quadrivalent, Spl it, Preservative Free, Intramuscular 05/09/2023,05/17/2022,05/17/2021 Influenza, Unspecified 08/29/2022(Deferr ed: Patient Refused),07/29/2022(Deferred: Patient Refused),05/12/2021,07/29/2020(Deferre d: Patient Refused) Pfizer SARS-CoV-2 Monovalent Vaccination (12+ Yrs) PURPLE 11/25/2020,11/04/2020 Tdap 07/29/2014 Social History Tobacco Use Types Packs/Day Years Used Date Smoking Tobacco: Never Smokeless Tobacco: Never Tobacco Cessation:Counseling Given: Not Answered AUDIT-C Answer Date Recorded Q1: How often do you have a drink containing alcohol? Never 07/01/2024 Q2: How many drinks containi ng alcohol do you have on a typical day when you are drinking? Patient does not drink Q3: How often do you have si x or more drinks on one occasion? Never 07/01/2024 PHQ-2 Answer Date Recorded PHQ-2 Total Score (If total score is 3 or more points, staff should administer the PHQ-9) 0 07/01/2024 Personal Safety Answer Date Recorded Have you ever been in or are you currently in a harmful physical or emotional relationship or is someone making you feel afraid or unsafe? Denies 05/22/2024 Comments Unknown Sex and Gender Information Value Date Recorded Sex Assigned at Not on file Legal Sex Female 10:31 AM CLINICAL PROGRAM MANAGER Gender Identity Female 02/02/2021 7:25 AM CDT Sexual Orientation Straight 02/02/2021 7: 25 AM CDT Last Filed Vital Signs Vital Sign Reading Time Taken Comments Blood Pressure 122/72 07/01/2024 10:07 AM CLINICAL PROGRAM MANAGER Pulse 74 07/01/2024 10:07 AM CLINICAL PROGRAM MANAGER Temperature 36.6 ??C (97.9 ??F) 07/01/2024 1 0:07 AM CLINICAL PROGRAM MANAGER Respiratory Rate 16 06/18/2024 8:32 AM CLINICAL PROGRAM MANAGER Oxygen Saturation 99% 07/01/2024 10: 07 AM CLINICAL PROGRAM MANAGER Inhaled Oxygen Concentration - - Weight 97.4 kg (214 lb 11.2 oz) 024 10:07 AM CLINICAL PROGRAM MANAGER Height 160 cm (5' 3 ) 07/01/2024 10:07 AM CLINICAL PROGRAM MANAGER Body Mass Index 38.03 07/01/2024 10:07 AM CLINICAL PROGRAM MANAGER Plan of Treatment Not on file Procedures Procedure Name Priority Date/Time Associated Diagnosis Comments HM MAMMOGRAPHY Routine 07/13/2024 12:21 PM CLINICAL PROGRAM MANAGER VITAMIN B12 Routine 06/29/2024 7:30 AM CLINICAL PROGRAM MANAGER B12 deficiency TSH Routine 06/29/2024 7:29 AM CLINICAL PROGRAM MANAGER BMI 36.0-36.9,adult Other fatigue LIPID PANEL Routine 06/29/2024 7:29 AM CLINICAL PROGRAM MANAGER Hyperlipidemia, unspecified hyperlipidemia type HEMOGLOBIN A1C Routine 06/29/2024 7:29 AM CLINICAL PROGRAM MANAGER Hyperglycemia COMPREHENSIVE METABOLIC PANEL Routine 7:29 AM CLINICAL PROGRAM MANAGER Essential hypertension DIFFERENTIAL AUTO Routine 06/18/2024 8:04 AM CLINICAL PROGRAM MANAGER Iron deficiency anemia due to chronic blood loss FERRITIN Routine 06/18/2024 8:04 AM CLINICAL PROGRAM MANAGER Iron deficiency anemia due to chronic blood loss IRON PROFILE W/ IBC Routine 06/18/2024 8:04 AM CLINICAL PROGRAM MANAGER Iron deficiency anemia due to chronic blood loss CBC WITH AUTO DIFFERENTIAL Routine 06/18 8:04 AM CLINICAL PROGRAM MANAGER Iron deficiency anemia due to chronic blood loss CRP (ACUTE PHASE) Routine 06/15/2024 10:47 AM CLINICAL PROGRAM MANAGER Systemic sclerosis (HCC) prison current use of therapeutic drug ERYTHROCYTE SEDIMENTATION RATE Routine 1 08/15/2023 10:47 AM CLINICAL PROGRAM MANAGER Systemic sclerosis (HCC) prison current use of therapeutic drug COMPREHENSIVE METABOLIC PANEL Routine 10:47 AM CLINICAL PROGRAM MANAGER Systemic sclerosis (HCC) prison current use of therapeutic drug DIFFERENTIAL AUTO Routine 06/11/2024 8:53 AM CLINICAL PROGRAM MANAGER Iron deficiency anemia due to chronic blood loss CBC WITH AUTO DIFFERENTIAL Routine 06/11 8:53 AM CLINICAL PROGRAM MANAGER Iron deficiency anemia due to chronic blood loss DIFFERENTIAL AUTO Routine 06/04/2024 8:27 AM CLINICAL PROGRAM MANAGER Iron deficiency anemia due to chronic blood loss CBC WITH AUTO DIFFERENTIAL Routine 06/04 8:27 AM CLINICAL PROGRAM MANAGER Iron deficiency anemia due to chronic blood loss DIFFERENTIAL AUTO Routine 05/28/2024 8:06 AM CDT Iron deficiency anemia due to chronic blood loss CBC WITH AUTO DIFFERENTIAL Routine 05/28 8:06 AM CDT Iron deficiency anemia due to chronic blood loss ESOPHAGOGASTRODUODENOSCOPY W ITH ABLATION 05/22/2024 11:28 AM CDT Gastric antral vascular ectasia EGD 05/22/2024 11:27 AM CDT DIFFERENTIAL AUTO Routine 05/21/2024 7:55 AM CDT Iron deficiency anemia due to chronic blood loss CBC WITH AUTO DIFFERENTIAL Routine 05/21 7:55 AM CDT Iron deficiency anemia due to chronic blood loss DIFFERENTIAL AUTO Routine 05/14/2024 8:07 AM CDT Iron deficiency anemia due to chronic blood loss CBC WITH AUTO DIFFERENTIAL Routine 05/14 8:07 AM CDT Iron deficiency anemia due to chronic blood loss TRANSFUSE RED BLOOD CELLS Timed 2023 8:40 AM CDT Iron deficiency anemia due to chronic blood loss PREPARE RBC Routine 05/09/2024 9:59 AM CDT Iron deficiency anemia due to chronic blood loss RBC ANTIGEN SEROLOGIC PHENOTYPING Routine 05/07/2024 2:45 PM CDT ANTIBODY IDENTIFICATION SO Routine 05/07 2:45 PM CDT B ABO / RH CONFIRMATION TESTING Routine 05/07/2024 11:39 AM CDT CROSSMATCH Routine 05/07/2024 11:37 AM CDT Iron deficiency anemia due to chronic blood loss ANTIBODY SCREEN Routine 05/07/2024 11:37 AM CDT Iron deficiency anemia due to chronic blood loss ABO/RH Routine 05/07/2024 11:37 AM CDT Iron deficiency anemia due to chronic blood loss TYPE AND SCREEN Routine 05/07/2024 11:37 AM CDT Iron deficiency anemia due to chronic blood loss DIFFERENTIAL AUTO Routine 05/07/2024 10:19 AM CDT History of DVT (deep vein thrombosis) History of pulmonary embolus (PE) Iron deficiency anemia due to chronic blood loss CBC WITH AUTO DIFFERENTIAL Routine 05/07 10:19 AM CDT History of DVT (deep vein thrombosis) History of pulmonary embolus (PE) Iron deficiency anemia due to chronic blood loss FERRITIN Routine 05/07/2024 10:19 AM CDT History of DVT (deep vein thrombosis) History of pulmonary embolus (PE) Iron deficiency anemia due to chronic blood loss IRON PROFILE W/ IBC Routine 05/07/2024 10:19 AM CDT History of DVT (deep vein thrombosis) History of pulmonary embolus (PE) Iron deficiency anemia due to chronic blood loss RETICULOCYTES Routine 05/07/2024 10:13 AM CDT Iron deficiency anemia due to chronic blood loss HEPATITIS PANEL, ACUTE Routine 3 2:12 PM CLINICAL PROGRAM MANAGER Fatigue, unspecified type HM PAP SMEAR WITH HPV Routine 05/03/2021 3:03 PM CDT HM COLONOSCOPY Routine 10/12/2020 from Last 3 Months or Most Recently Relevant to Health Maintenance Results * HM MAMMOGRAPHY (07/13/2024 12:21 PM CLINICAL PROGRAM MANAGER) Mammography Normal Historical Provider HEALTH MAINTENANCE Edited Result - Final * Vitamin B12 (06/29/2024 7:30 AM CLINICAL PROGRAM MANAGER) Vitamin B12 375 232 - 1,245 pg/mL [facility] - 01 Blood 06/29/2024 7:30 AM CLINICAL PROGRAM MANAGER 06/29/2024 Narrative [facility] - 06/30/2024 9:37 AM CLINICAL PROGRAM MANAGER Performed at: ??01 - [facility] [address] ??[id number] Twisting Department End Finder: Parveen Lofton PhD, Phone: ??[phone] Starr SALVADOR LAB BLOOD ORDERABLES Final Result Performing Organization Address [facility] Co de Phone Number [facility] - * TSH (06/29/2024 7:29 AM CLINICAL PROGRAM MANAGER) Pathologist [facility] TSH 1.780 0.450 - 4.500 uIU/mL [facility] - 01 Blood 06/29/2024 7:29 AM CLINICAL PROGRAM MANAGER 06/29/2024 Narrative [facility] - 06/30/2024 9:37 AM CLINICAL PROGRAM MANAGER Performed at: ??01 - [facility] ??[id number] Twisting Department End Finder: Parveen Lofton PhD, Phone: ??[phone] St[facility] SALVADOR LAB BLOOD ORDERABLES Final Result Performing Organization Address [facility] Co de Phone Number [facility] - * Hemoglobin A1c (06/29/2024 7:29 AM CLINICAL PROGRAM MANAGER) Hgb A1C 5.3 4.8 - 5.6 % [facility] - 01 Comment: ? Prediabetes: 5.7 - 6.4 ? Diabetes: >6.4 ? Glycemic control for adults with diabetes: <7.0 Blood 06/29/2024 7:29 AM CLINICAL PROGRAM MANAGER 06/29/2024 Narrative [facility] - 06/30/2024 7:38 AM CLINICAL PROGRAM MANAGER Performed at: ??01 - [address] ??[id number] Twisting Department End Finder: Parveen Lofton PhD, Phone: ??[phone] Starr SALVADOR LAB BLOOD ORDERABLES Final Result Performing Organization Address [facility] de Phone Number [facility] - * Lipid panel (06/29/2024 7:29 AM CLINICAL PROGRAM MANAGER) Cholesterol 143 100 - 199 mg/dL [facility] - 01 Triglycerides 129 0 - 149 mg/dL [facility] - 01 HDL Cholesterol 48 >39 mg/dL [facility] - 01 VLDL 23 5 - 40 mg/dL [facility] - 01 LDL, calculated 72 0 - 99 mg/dL [facility] - 01 Blood 06/29/2024 7:29 AM CLINICAL PROGRAM MANAGER 06/29/2024 Narrative [facility] - 06/30/2024 7:38 AM CLINICAL PROGRAM MANAGER Performed at: ??[address] ??[id number] Twisting Department End Finder: Parveen Lofton PhD, Phone: ??[phone] Starr SALVADOR LAB BLOOD ORDERABLES Final Result Performing Organization Address [facility] de Phone Number [facility] - * (ABNORMAL) Comprehensive metabolic panel (06/29/2024 7:29 AM CLINICAL PROGRAM MANAGER) Glucose 104(H) 70 - 99 mg/dL [facility] - 01 BUN 20 8 - 27 mg/dL [facility] - 01 Creatinine, Serum 0.67 0.57 - 1.00 mg/dL [facility] - 01 eGFR 100 >59 mL/min/1.7 3 [facility] - 01 BUN/creat ratio 30(H) 12 - 28 [facility] - 01 Sodium 139 134 - 144 mmol/L [facility] - 01 Potassium, sr 4.0 3.5 - 5.2 mmol/L [facility] - 01 Chloride 104 96 - 106 mmol/L [facility] - 01 CO2 22 20 - 29 mmol/L [facility] - 01 Calcium 9.4 8.7 - 10.3 mg/dL [facility] - 01 Protein, sr 6.2 6.0 - 8.5 g/dL [facility] - 01 Albumin 4.0 3.8 - 4.9 g/dL [facility] - 01 Globulin, Total 2.2 1.5 - 4.5 g/dL [facility] - 01 Bilirubin, Total 0.4 0.0 - 1.2 mg/dL [facility] - 01 Alk phos 79 44 - 121 IU/L [facility] - 01 AST 13 0 - 40 IU/L [facility] - 01 ALT 9 0 - 32 IU/L [facility] - 01 Blood 06/29/2024 7:29 AM CLINICAL PROGRAM MANAGER 06/29/2024 Narrative [facility] - 06/30/2024 7:38 AM CLINICAL PROGRAM MANAGER Performed at: ??01 - [facility] [address] ??[id number] Twisting Department End Finder: Parveen Lofton PhD, Phone: ??[phone] Starr SALVADOR LAB BLOOD ORDERABLES Final Result Performing Organization Address [facility] Co de Phone Number [facility] - 01 * (ABNORMAL) Differential, auto (06/18/2024 8:04 AM CLINICAL PROGRAM MANAGER) Neutrophil abs 3.0 1.5 - 6.5 K/cumm Comment:Testing performed by : [address] [address] Imm gran abs 0.0 0.0 - 0.1 K/cumm [facility] Comment:Testing performed by : [address] [address] Lymphocyte abs 0.7(L) 0.8 - 3.3 K/cumm [facility] Comment:Testing performed by : [address] [address] Monocyte abs 0.3 0.2 - 0.8 K/cumm [facility] Comment:Testing performed by : [address] [address] Eosinophil abs 0.2 0.0 - 0.5 K/cumm [facility] Comment:Testing performed by : [address] [address] Basophil abs 0.0 0.0 - 0.1 K/cumm [facility] Comment:Testing performed by : [address] [address] Neutrophil pct 71.1 % [facility] Comment: Interpretive Data Percent cell count reference ranges are not reported, since discordance with absolute values may lead to misinterpretation of CBC data. Current Interpretive Data was last revised on 2017. Testing performed by: [address] [address] Imm gran pct 0.5 % [facility] Comment: Interpretive Data Percent cell count reference ranges are not reported, since discordance with absolute values may lead to misinterpretation of CBC data. Current Interpretive Data was last revised on 2017. Testing performed by: [address] [address] Lymphocyte pct 16.1 % [facility] Comment: Interpretive Data Percent cell count reference ranges are not reported, since discordance with absolute values may lead to misinterpretation of CBC data. Current Interpretive Data was last revised on 2017. Testing performed by: [address] [address] Monocyte pct 7.0 % [facility] Comment: Interpretive Data Percent cell count reference ranges are not reported, since discordance with absolute values may lead to misinterpretation of CBC data. Current Interpretive Data was last revised on 2017. Testing performed by: [address] [address] Eosinophil pct 4.6 % [facility] Comment: Interpretive Data Percent cell count reference ranges are not reported, since discordance with absolute values may lead to misinterpretation of CBC data. Current Interpretive Data was last revised on 2017. Testing performed by: [address] [address] Basophil pct 0.7 % [facility] Comment: Interpretive Data Percent cell count reference ranges are not reported, since discordance with absolute values may lead to misinterpretation of CBC data. Current Interpretive Data was last revised on 2017. Testing performed by: [address] [address] Blood 06/18/2024 8:04 AM CLINICAL PROGRAM MANAGER 06/18/2024 8:16 AM CLINICAL PROGRAM MANAGER Cornelius Garcia DO LAB BLOOD ORDERABLES Final R esult Performing Organization Address [facility] de Phone Number [address] [employer] [place], [place] [id number] * (ABNORMAL) Iron profile w/ IBC (06/18/2024 8:04 AM CLINICAL PROGRAM MANAGER) Pathologist [facility] Iron 49 35 - 145 mcg/dL Comment:Testing performed by : [address] [address] TIBC 375 250 - 400 mcg/dL [facility] Comment:Testing performed by : [address] [address] Transferrin saturation 13(L) 20 - 50 % [facility] Comment:Testing performed by : [address] [address] Blood 06/18/2024 8:04 AM CLINICAL PROGRAM MANAGER 06/18/2024 9:50 AM CLINICAL PROGRAM MANAGER Cornelius Garcia DO LAB BLOOD ORDERABLES Final R esult Performing Organization Address [facility] de Phone Number [facility] [address] [facility] [place] [place] [address] * (ABNORMAL) CBC with auto differential (06/18/2024 8:04 AM CLINICAL PROGRAM MANAGER) WBC 4.2 3.8 - 9.9 K/cumm Comment:Testing performed by : [address] [address] Hgb 10.0(L) 11.9 - 15.5 g/dL [facility] Comment:Testing performed by : [address] [address] Hct 33.0(L) 35.6 - 45.5 % [facility] Comment:Testing performed by : [address] [address] Plt 209 150 - 400 K/cumm [facility] Comment:Testing performed by : [address] [address] MPV 10.0 9.1 - 12.3 fL [facility] Comment:Testing performed by : [address] [address] RBC 4.30 3.90 - 5.20 M/cumm [facility] Comment:Testing performed by : [address] [address] MCV 76.7(L) 81.3 - 96.4 fL [facility] Comment:Testing performed by : [address] [address] MCH 23.3(L) 27.1 - 33.3 pg [facility] Comment:Testing performed by : [address] [address] MCHC 30.3(L) 32.3 - 35.7 g/dL [facility] Comment:Testing performed by : [address] [address] RDW CV 18.7(H) 11.1 - 14.9 % [facility] Comment:Testing performed by : [address] [address] RDW SD 51.6(H) 35.7 - 48.1 fL [facility] Comment:Testing performed by : [address] [address] NRBC abs 0.00 0.00 - 0.01 K/cumm [facility] Comment:Testing performed by : [address] [address] Blood 06/18/2024 8:04 AM CLINICAL PROGRAM MANAGER 06/18/2024 8:16 AM CLINICAL PROGRAM MANAGER Cornelius Garcia DO LAB BLOOD ORDERABLES Final R esult Performing Organization Address City/[facility]/ZIP Co de Phone Number [facility] [address] [address] * Ferritin (06/18/2024 8:04 AM CLINICAL PROGRAM MANAGER) Ferritin 29 15 - 150 ng/mL Comment:Testing performed by : [facility], [address] [place] [address], [address] Blood 06/18/2024 8:04 AM CLINICAL PROGRAM MANAGER 06/18/2024 9:50 AM CLINICAL PROGRAM MANAGER Cornelius Vinh Garcia DO LAB BLOOD ORDERABLES Final R esult Performing Organization Address [facility] Co de Phone Number [facility] [address] [address] * Erythrocyte sedimentation rate (06/15/2024 10:47 AM CLINICAL PROGRAM MANAGER) Pathologist [facility] Erythrocyte sedimentation rate 2 < OR = 30 mm/h [facility] Blood 06/15/2024 10:4 7 AM CLINICAL PROGRAM MANAGER 06/15/2024 10:47 AM CLINICAL PROGRAM MANAGER us Jing SALVADOR LAB BLOOD ORDERABLES Final Result Performing Organization Address City/[facility]/ZIP Co de Phone Number [facility] [address] [place] [address] * CRP (acute phase) (06/15/2024 10:47 AM CLINICAL PROGRAM MANAGER) C-RP <3.0 <8.0 mg/L [facility] Blood 06/15/2024 10:4 7 AM CLINICAL PROGRAM MANAGER 06/15/2024 10:47 AM CLINICAL PROGRAM MANAGER Jing SALVADOR LAB BLOOD ORDERABLES Final Result [facility] [address] [place] [phone] * Comprehensive metabolic panel (06/15/2024 10:47 AM CLINICAL PROGRAM MANAGER) Glucose 91 65 - 99 mg/dL [facility] Comment: ? Fasting reference interval BUN 13 7 - 25 mg/dL [facility] Creatinine 0.56 0.50 - 1.05 mg/dL [facility] eGFR 104 > OR = 60 mL/min/1.7 3m2 [facility] BUN/creat ratio SEE NOTE: 6 - 22 (calc) [facility] Comment: ?? Not Reported: BUN and Creatinine are within ?? reference range. ? Sodium 140 135 - 146 mmol/L [facility] Potassium, pl 4.2 3.5 - 5.3 mmol/L [facility] Chloride 106 98 - 110 mmol/L [facility] CO2 26 20 - 32 mmol/L [facility] Calcium 9.4 8.6 - 10.4 mg/dL [facility] Protein, sr 6.3 6.1 - 8.1 g/dL [facility] Albumin 4.1 3.6 - 5.1 g/dL [facility] GLOBULIN 2.2 1.9 - 3.7 g/dL (calc) [facility] Alb/glob ratio 1.9 1.0 - 2.5 (calc) [facility] Bilirubin, total 0.4 0.2 - 1.2 mg/dL [facility] Alk phos 74 37 - 153 U/L [facility] AST 12 10 - 35 U/L [facility] ALT (SGPT) 10 6 - 29 U/L [facility] Blood 06/15/2024 10:4 7 AM CLINICAL PROGRAM MANAGER 06/15/2024 10:47 AM CLINICAL PROGRAM MANAGER Jing SALVADOR LAB BLOOD ORDERABLES Final Result [facility] [address] [address] [facility] [place] [phone] * Differential, auto (06/11/2024 8:53 AM CLINICAL PROGRAM MANAGER) Neutrophil abs 3.0 1.5 - 6.5 K/cumm Comment:Testing performed by : [address] [address] Imm gran abs 0.0 0.0 - 0.1 K/cumm [facility] Comment:Testing performed by : [address] [address] Lymphocyte abs 0.8 0.8 - 3.3 K/cumm [facility] Comment:Testing performed by : [address] [address] Monocyte abs 0.3 0.2 - 0.8 K/cumm [facility] Comment:Testing performed by : [address] [address] Eosinophil abs 0.2 0.0 - 0.5 K/cumm [facility] Comment:Testing performed by : [address] [address] Basophil abs 0.0 0.0 - 0.1 K/cumm [facility] Comment:Testing performed by : [address] [address] Neutrophil pct 68.9 % [facility] Comment: Interpretive Data Percent cell count reference ranges are not reported, since discordance with absolute values may lead to misinterpretation of CBC data. Current Interpretive Data was last revised on 2017. Testing performed by: [address] [address] Imm gran pct 0.5 % [facility] Comment: Interpretive Data Percent cell count reference ranges are not reported, since discordance with absolute values may lead to misinterpretation of CBC data. Current Interpretive Data was last revised on 2017. Testing performed by: [address] [address] Lymphocyte pct 18.9 % [facility] Comment: Interpretive Data Percent cell count reference ranges are not reported, since discordance with absolute values may lead to misinterpretation of CBC data. Current Interpretive Data was last revised on 2017. Testing performed by: [address] [address] Monocyte pct 7.5 % [facility] Comment: Interpretive Data Percent cell count reference ranges are not reported, since discordance with absolute values may lead to misinterpretation of CBC data. Current Interpretive Data was last revised on 2017. Testing performed by: [address] [address] Eosinophil pct 3.7 % [facility] Comment: Interpretive Data Percent cell count reference ranges are not reported, since discordance with absolute values may lead to misinterpretation of CBC data. Current Interpretive Data was last revised on 2017. Testing performed by: [address] [address] Basophil pct 0.5 % [facility] Comment: Interpretive Data Percent cell count reference ranges are not reported, since discordance with absolute values may lead to misinterpretation of CBC data. Current Interpretive Data was last revised on 2017. Testing performed by: [address] [address] Blood 06/11/2024 8:53 AM CLINICAL PROGRAM MANAGER 06/11/2024 8:54 AM CLINICAL PROGRAM MANAGER us Cornelius Garcia DO LAB BLOOD ORDERABLES Final R esult [facility] [address] [facility] Department [place] [address] * (ABNORMAL) CBC with auto differential (06/11/2024 8:53 AM CLINICAL PROGRAM MANAGER) WBC 4.3 3.8 - 9.9 K/cumm Comment:Testing performed by : [address] [address] Hgb 9.9(L) 11.9 - 15.5 g/dL [facility] Comment:Testing performed by : [address] [address] Hct 32.5(L) 35.6 - 45.5 % [facility] Comment:Testing performed by : [address], [address] Plt 254 150 - 400 K/cumm [facility] Comment:Testing performed by : [address] [address] MPV 9.5 9.1 - 12.3 fL [facility] Comment:Testing performed by : [address], [address] RBC 4.26 3.90 - 5.20 M/cumm [facility] Comment:Testing performed by : [address], [address] MCV 76.3(L) 81.3 - 96.4 fL [facility] Comment:Testing performed by : [address], [address] MCH 23.2(L) 27.1 - 33.3 pg [facility] Comment:Testing performed by : [address] [address] MCHC 30.5(L) 32.3 - 35.7 g/dL [facility] Comment:Testing performed by : [address], [address] RDW CV 19.1(H) 11.1 - 14.9 % [facility] Comment:Testing performed by : [address], [address] RDW SD 53.1(H) 35.7 - 48.1 fL [facility] Comment:Testing performed by : [address], [address] NRBC abs 0.00 0.00 - 0.01 K/cumm [facility] Comment:Testing performed by : [address], [address] Blood 06/11/2024 8:53 AM CLINICAL PROGRAM MANAGER 06/11/2024 8:54 AM CLINICAL PROGRAM MANAGER us Cornelius Garcia DO LAB BLOOD ORDERABLES Final R esult [facility] [address] [facility] Department [place] [address] * (ABNORMAL) Differential, auto (06/04/2024 8:27 AM CLINICAL PROGRAM MANAGER) Neutrophil abs 2.4 1.5 - 6.5 K/cumm Comment:Testing performed by : [address] [address] Imm gran abs 0.0 0.0 - 0.1 K/cumm [facility] Comment:Testing performed by : [address] [address] Lymphocyte abs 0.7(L) 0.8 - 3.3 K/cumm [facility] Comment:Testing performed by : [address] [address] Monocyte abs 0.4 0.2 - 0.8 K/cumm [facility] Comment:Testing performed by : [address] [address] Eosinophil abs 0.2 0.0 - 0.5 K/cumm [facility] Comment:Testing performed by : [address] [address] Basophil abs 0.0 0.0 - 0.1 K/cumm [facility] Comment:Testing performed by : [address] [address] Neutrophil pct 65.1 % [facility] Comment: Interpretive Data Percent cell count reference ranges are not reported, since discordance with absolute values may lead to misinterpretation of CBC data. Current Interpretive Data was last revised on 2017. Testing performed by: [address] [address] Imm gran pct 0.3 % [facility] Comment: Interpretive Data Percent cell count reference ranges are not reported, since discordance with absolute values may lead to misinterpretation of CBC data. Current Interpretive Data was last revised on 2017. Testing performed by: [address] [address] Lymphocyte pct 19.6 % [facility] Comment: Interpretive Data Percent cell count reference ranges are not reported, since discordance with absolute values may lead to misinterpretation of CBC data. Current Interpretive Data was last revised on 2017. Testing performed by: [address] [address] Monocyte pct 10.2 % [facility] Comment: Interpretive Data Percent cell count reference ranges are not reported, since discordance with absolute values may lead to misinterpretation of CBC data. Current Interpretive Data was last revised on 2017. Testing performed by: [address] [address] Eosinophil pct 4.3 % [facility] Comment: Interpretive Data Percent cell count reference ranges are not reported, since discordance with absolute values may lead to misinterpretation of CBC data. Current Interpretive Data was last revised on 2017. Testing performed by: [address] [address] Basophil pct 0.5 % [facility] Comment: Interpretive Data Percent cell count reference ranges are not reported, since discordance with absolute values may lead to misinterpretation of CBC data. Current Interpretive Data was last revised on 2017. Testing performed by: [address] [address] Blood 06/04/2024 8:27 AM CLINICAL PROGRAM MANAGER 06/04/2024 8:29 AM CLINICAL PROGRAM MANAGER us Cornelius Garcia DO LAB BLOOD ORDERABLES Final R esult [facility] [address] [facility] Department [place] [address] * (ABNORMAL) CBC with auto differential (06/04/2024 8:27 AM CLINICAL PROGRAM MANAGER) WBC 3.7(L) 3.8 - 9.9 K/cumm Comment:Testing performed by : [address] [address] Hgb 10.0(L) 11.9 - 15.5 g/dL [facility] Comment:Testing performed by : [address] [address] Hct 33.6(L) 35.6 - 45.5 % [facility] Comment:Testing performed by : [address], [address] Plt 228 150 - 400 K/cumm [facility] Comment:Testing performed by : [address], [address] MPV 10.2 9.1 - 12.3 fL [facility] Comment:Testing performed by : [address], [address] RBC 4.31 3.90 - 5.20 M/cumm [facility] Comment:Testing performed by : [address], [address] MCV 78.0(L) 81.3 - 96.4 fL [facility] Comment:Testing performed by : [address], [address] MCH 23.2(L) 27.1 - 33.3 pg [facility] Comment:Testing performed by : [address], [address] MCHC 29.8(L) 32.3 - 35.7 g/dL [facility] Comment:Testing performed by : [address], [address] RDW CV 19.7(H) 11.1 - 14.9 % [facility] Comment:Testing performed by : [address], [address] RDW SD 55.0(H) 35.7 - 48.1 fL [facility] Comment:Testing performed by : [address], [address] NRBC abs 0.00 0.00 - 0.01 K/cumm [facility] Comment:Testing performed by : [address], [address] Blood 06/04/2024 8:27 AM CLINICAL PROGRAM MANAGER 06/04/2024 8:29 AM CLINICAL PROGRAM MANAGER us Cornelius Garcia DO LAB BLOOD ORDERABLES Final R esult [facility] [address] [facility] Department [place] [address] * Differential, auto (05/28/2024 8:06 AM CDT) Neutrophil abs 3.2 1.5 - 6.5 K/cumm Comment:Testing performed by : [address] [address] Imm gran abs 0.0 0.0 - 0.1 K/cumm [facility] Comment:Testing performed by : [address] [address] Lymphocyte abs 0.8 0.8 - 3.3 K/cumm [facility] Comment:Testing performed by : [address] [address] Monocyte abs 0.4 0.2 - 0.8 K/cumm [facility] Comment:Testing performed by : [address] [address] Eosinophil abs 0.1 0.0 - 0.5 K/cumm [facility] Comment:Testing performed by : [address] [address] Basophil abs 0.0 0.0 - 0.1 K/cumm [facility] Comment:Testing performed by : [address] [address] Neutrophil pct 71.4 % [facility] Comment: Interpretive Data Percent cell count reference ranges are not reported, since discordance with absolute values may lead to misinterpretation of CBC data. Current Interpretive Data was last revised on 2017. Testing performed by: [address] [address] Imm gran pct 0.2 % [facility] Comment: Interpretive Data Percent cell count reference ranges are not reported, since discordance with absolute values may lead to misinterpretation of CBC data. Current Interpretive Data was last revised on 2017. Testing performed by: [address] [address] Lymphocyte pct 17.2 % [facility] Comment: Interpretive Data Percent cell count reference ranges are not reported, since discordance with absolute values may lead to misinterpretation of CBC data. Current Interpretive Data was last revised on 2017. Testing performed by: [address] [address] Monocyte pct 7.9 % [facility] Comment: Interpretive Data Percent cell count reference ranges are not reported, since discordance with absolute values may lead to misinterpretation of CBC data. Current Interpretive Data was last revised on 2017. Testing performed by: [address] [address] Eosinophil pct 2.9 % [facility] Comment: Interpretive Data Percent cell count reference ranges are not reported, since discordance with absolute values may lead to misinterpretation of CBC data. Current Interpretive Data was last revised on 2017. Testing performed by: [address] [address] Basophil pct 0.4 % [facility] Comment: Interpretive Data Percent cell count reference ranges are not reported, since discordance with absolute values may lead to misinterpretation of CBC data. Current Interpretive Data was last revised on 2017. Testing performed by: [address] [address] Blood 05/28/2024 8:06 AM CDT 05/28/2024 8:14 AM CDT us Cornelius Garcia DO LAB BLOOD ORDERABLES Final R esult [facility] [address] [facility] Department [place] [address] * (ABNORMAL) CBC with auto differential (05/28/2024 8:06 AM CDT) WBC 4.5 3.8 - 9.9 K/cumm Comment:Testing performed by : [address] [address] Hgb 9.6(L) 11.9 - 15.5 g/dL [facility] Comment:Testing performed by : [address] [address] Hct 32.0(L) 35.6 - 45.5 % [facility] Comment:Testing performed by : [address] [address] Plt 252 150 - 400 K/cumm [facility] Comment:Testing performed by : [address] [address] MPV 10.0 9.1 - 12.3 fL [facility] Comment:Testing performed by : [address] [address] RBC 4.11 3.90 - 5.20 M/cumm [facility] Comment:Testing performed by : [address] [address] MCV 77.9(L) 81.3 - 96.4 fL [facility] Comment:Testing performed by : [address] [address] MCH 23.4(L) 27.1 - 33.3 pg [facility] Comment:Testing performed by : [address] [address] MCHC 30.0(L) 32.3 - 35.7 g/dL [facility] Comment:Testing performed by : [address] [address] RDW CV 20.3(H) 11.1 - 14.9 % [facility] Comment:Testing performed by : [address] [address] RDW SD 54.3(H) 35.7 - 48.1 fL [facility] Comment:Testing performed by : [address] [address] NRBC abs 0.00 0.00 - 0.01 K/cumm [facility] Comment:Testing performed by : [address] [address] Blood 05/28/2024 8:06 AM CDT 05/28/2024 8:14 AM CDT Cornelius Garcia DO LAB BLOOD ORDERABLES Final R esult [facility] [address] Department [place] [address] * EGD (05/22/2024 11:27 AM CDT) Anatomical Region Laterality Modality Other Narrative Procedure Note Bibiana Schuler MD - 05/22/2024 11:27 AM CDT [facility] GI ENDOSCOPY Patient Name: Viktoriya Bell Procedure Date: 05/22/2024 11:27AM Date of : 1965 Admit Type: Outpatient Age: 59 Gender: Female Attending MD: Bibiana Schuler M.D. 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 Medicines: See the Anesthesia note for documentation of the administered medications Complications: No immediate complications. Procedure: Pre-Anesthesia Assessment: - Prior to the procedure, a History and Physicalwas performed, and patient medications, allergies and sensitivities were reviewed. The patient'stolerance of previous anesthesia was reviewed. - The risks and benefits of the procedure and the sedation options and risks were discussed with the patient. All questions were answered and informed consent was obtained. The benefits, risks, and alternatives to theprocedure and sedation were discussed and informed consentwas obtained. The scope was passed under direct vision. The GIF-H190 Upper endoscope was introduced through the mouth, and advanced to the second part of duodenum. The upper GI endoscopy was accomplished without difficulty. The patient tolerated the procedure well. Findings: The examined esophagus was normal. 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 Coagulation for bleeding prevention using argon beam at 0.4 liters/minute and 40 veronica was successful. Estimated blood loss was minimal. The examined duodenum was normal. Impression: - Normal esophagus. - Gastric antral vascular ectasia. Treated withargon beam coagulation. - Normal examined duodenum. - No specimens collected. Recommendation: - Resume previous diet. - Continue present medications. Bibiana Schuler M.D. Bibiana Schuler M.D. 05/22/2024 11:55:24 AM . Number of Addenda: 0 Note Initiated On: 05/22/2024 11:27 AM Recognized by the [place] [employer] for promoting quality in endoscopy Bibiana Schuler MD ENDOSCOPY PROCEDURES Soco l Result * (ABNORMAL) Differential, auto (05/21/2024 7:55 AM CDT) Neutrophil abs 3.3 1.5 - 6.5 K/cumm Comment:Testing performed by : [address] [address] Imm gran abs 0.0 0.0 - 0.1 K/cumm LELAND Comment:Testing performed by : [address] [address] Lymphocyte abs 0.6(L) 0.8 - 3.3 K/cumm LELAND Comment:Testing performed by : [address] [address] Monocyte abs 0.3 0.2 - 0.8 K/cumm LELAND Comment:Testing performed by : [address] [address] Eosinophil abs 0.2 0.0 - 0.5 K/cumm LELAND Comment:Testing performed by : [address] [address] Basophil abs 0.0 0.0 - 0.1 K/cumm LELAND Comment:Testing performed by : [address] [address] Neutrophil pct 74.1 % [facility] Comment: Interpretive Data Percent cell count reference ranges are not reported, since discordance with absolute values may lead to misinterpretation of CBC data. Current Interpretive Data was last revised on 2017. Testing performed by: [address] [address] Imm gran pct 0.2 % [facility] Comment: Interpretive Data Percent cell count reference ranges are not reported, since discordance with absolute values may lead to misinterpretation of CBC data. Current Interpretive Data was last revised on 2017. Testing performed by: [address] [address] Lymphocyte pct 14.4 % [facility] Comment: Interpretive Data Percent cell count reference ranges are not reported, since discordance with absolute values may lead to misinterpretation of CBC data. Current Interpretive Data was last revised on 2017. Testing performed by: [address] [address] Monocyte pct 7.2 % [facility] Comment: Interpretive Data Percent cell count reference ranges are not reported, since discordance with absolute values may lead to misinterpretation of CBC data. Current Interpretive Data was last revised on 2017. Testing performed by: [address] [address] Eosinophil pct 3.6 % [facility] Comment: Interpretive Data Percent cell count reference ranges are not reported, since discordance with absolute values may lead to misinterpretation of CBC data. Current Interpretive Data was last revised on 2017. Testing performed by: [address] [address] Basophil pct 0.5 % [facility] Comment: Interpretive Data Percent cell count reference ranges are not reported, since discordance with absolute values may lead to misinterpretation of CBC data. Current Interpretive Data was last revised on 2017. Testing performed by: [address] [address] Blood 05/21/2024 7:55 AM CDT 05/21/2024 7:59 AM CDT Cornelius Garcia DO LAB BLOOD ORDERABLES Final R esult LELAND [address] [facility] Department [place] [address] * (ABNORMAL) CBC with auto differential (05/21/2024 7:55 AM CDT) Pathologist [facility] WBC 4.4 3.8 - 9.9 K/cumm Comment:Testing performed by : [address] [address] Hgb 9.2(L) 11.9 - 15.5 g/dL LELAND Comment:Testing performed by : [address] [address] Hct 30.6(L) 35.6 - 45.5 % LELAND Comment:Testing performed by : [address] [address] Plt 242 150 - 400 K/cumm LELAND Comment:Testing performed by : [address] [address] MPV 10.9 9.1 - 12.3 fL LELAND Comment:Testing performed by : [address] [address] RBC 3.99 3.90 - 5.20 M/cumm LELAND Comment:Testing performed by : [address] [address] MCV 76.7(L) 81.3 - 96.4 fL LELAND Comment:Testing performed by : [address] [address] MCH 23.1(L) 27.1 - 33.3 pg LELAND Comment:Testing performed by : [address] [address] MCHC 30.1(L) 32.3 - 35.7 g/dL LELAND Comment:Testing performed by : [address] [place]., [address] RDW CV 17.2(H) 11.1 - 14.9 % LELAND GARCIA Comment:Testing performed by : [address] [address] RDW SD 46.8 35.7 - 48.1 fL LELAND GARCIA Comment:Testing performed by : [address] [address] NRBC abs 0.00 0.00 - 0.01 K/cumm LELAND Comment:Testing performed by : [address] [address] Blood 05/21/2024 7:55 AM CDT 05/21/2024 7:59 AM CDT Cornelius Garcia DO LAB BLOOD ORDERABLES Final R esult LELAND [facility]0 [facility] Department [place] [address] * Differential, auto (05/14/2024 8:07 AM CDT) Neutrophil abs 3.3 1.5 - 6.5 K/cumm Comment:Testing performed by : [address] [address] Imm gran abs 0.0 0.0 - 0.1 K/cumm LELAND Comment:Testing performed by : [address] [address] Lymphocyte abs 0.9 0.8 - 3.3 K/cumm LELAND Comment:Testing performed by : [address] [address] Monocyte abs 0.4 0.2 - 0.8 K/cumm LELAND Comment:Testing performed by : [address] [address] Eosinophil abs 0.1 0.0 - 0.5 K/cumm LELAND Comment:Testing performed by : [address] [address] Basophil abs 0.1 0.0 - 0.1 K/cumm LELAND Comment:Testing performed by : [address] [address] Neutrophil pct 69.4 % [facility] Comment: Interpretive Data Percent cell count reference ranges are not reported, since discordance with absolute values may lead to misinterpretation of CBC data. Current Interpretive Data was last revised on 2017. Testing performed by: [address] [address] Imm gran pct 0.2 % [facility] Comment: Interpretive Data Percent cell count reference ranges are not reported, since discordance with absolute values may lead to misinterpretation of CBC data. Current Interpretive Data was last revised on 2017. Testing performed by: [address] [address] Lymphocyte pct 17.7 % [facility] Comment: Interpretive Data Percent cell count reference ranges are not reported, since discordance with absolute values may lead to misinterpretation of CBC data. Current Interpretive Data was last revised on 2017. Testing performed by: [address] [address] Monocyte pct 9.0 % [facility] Comment: Interpretive Data Percent cell count reference ranges are not reported, since discordance with absolute values may lead to misinterpretation of CBC data. Current Interpretive Data was last revised on 2017. Testing performed by: [address] [address] Eosinophil pct 2.7 % [facility] Comment: Interpretive Data Percent cell count reference ranges are not reported, since discordance with absolute values may lead to misinterpretation of CBC data. Current Interpretive Data was last revised on 2017. Testing performed by: [address] [address] Basophil pct 1.0 % [facility] Comment: Interpretive Data Percent cell count reference ranges are not reported, since discordance with absolute values may lead to misinterpretation of CBC data. Current Interpretive Data was last revised on 2017. Testing performed by: [address] [address] Blood 05/14/2024 8:07 AM CDT 05/14/2024 8:09 AM CDT Cornelius Garcia DO LAB BLOOD ORDERABLES Final R esult LELAND [address] [facility] Department [place] [address] * (ABNORMAL) CBC with auto differential (05/14/2024 8:07 AM CDT) WBC 4.8 3.8 - 9.9 K/cumm Comment:Testing performed by : [address] [address] Hgb 9.0(L) 11.9 - 15.5 g/dL LELAND Comment:Testing performed by : [address] [address] Hct 30.4(L) 35.6 - 45.5 % LELAND Comment:Testing performed by : [address] [address] Plt 286 150 - 400 K/cumm LELAND Comment:Testing performed by : [address] [address] MPV 10.6 9.1 - 12.3 fL LELAND GARCIA Comment:Testing performed by : [address] [address] RBC 3.95 3.90 - 5.20 M/cumm LELAND Comment:Testing performed by : [address] [address] MCV 77.0(L) 81.3 - 96.4 fL LELAND Comment:Testing performed by : [address] [address] MCH 22.8(L) 27.1 - 33.3 pg LELAND GARCIA Comment:Testing performed by : [address] [address] MCHC 29.6(L) 32.3 - 35.7 g/dL LELAND GARCIA Comment:Testing performed by : [address] [address] RDW CV 16.0(H) 11.1 - 14.9 % LELAND Comment:Testing performed by : [address] [address] RDW SD 43.8 35.7 - 48.1 fL LELAND GARCIA Comment:Testing performed by : [address] [address] NRBC abs 0.00 0.00 - 0.01 K/cumm LELAND Comment:Testing performed by : [address] [address] Blood 05/14/2024 8:07 AM CDT 05/14/2024 8:09 AM CDT us Cornelius Garcia DO LAB BLOOD ORDERABLES Final R esult LELAND [facility]5 [facility] Department of Laboratories [place], [place] [id number] * Transfuse RBC (05/11/2024 11:10 AM CDT) Blood us Cornelius Garcia DO BLOOD TRANSFUSION ORDERABLES Final Result * Prepare RBC: 1 Units (05/09/2024 9:59 AM CDT) Units requested 1 Comment:Testing performed by : [address] [address] Units requested Ready LELAND GARCIA Comment:Testing performed by : [address] [address] Unit Number [id number] Product code [id number] LELAND Blood Expiration Date LELAND Product Blood Type (for scanning) 8400 LELAND Product Blood Type ABPOS LELAND Dispense Status DISPENSED LELAND GARCIA Blood 05/09/2024 9:59 AM CDT 05/09/2024 9:59 AM CDT us Cornelius Garcia DO BLOOD BANK PRODUCT ORDERABLE S Final Result Performing Organization Address City/[facility]/ZIP Co de Phone Number LELAND [facility]0 [facility] [place] [address] * Antibody Identification SO (05/07/2024 2:45 PM CDT) Antibody ID Reference Lab/Send Out Anti-Drake Comment:Testing performed by : [address] [address] Blood 05/07/2024 2:45 PM CDT 05/07/2024 5:39 PM CDT Cornelius AlegreSpreecast BLOOD BANK TEST ORDERABL ES Final Result Performing Organization Address [facility] Co de Phone Number LELAND [address] [place] [address] * RBC Antigen Serologic Phenotyping (05/07/2024 2:45 PM CDT) Erythrocyte ag c Positive Comment:Testing performed by : [address] [address] Erythrocyte ag C Positive LELAND Comment:Testing performed by : [address] [address] Erythrocyte ag e Positive LELAND Comment:Testing performed by : [address] [address] Erythrocyte ag E Negative LELAND Comment:Testing performed by : [address] [address] Blood 05/07/2024 2:45 PM CDT 05/08/2024 7:41 PM CDT Cornelius Vinh Radha DO LAB BLOOD BANK TEST ORDERABL ES Final Result Performing Organization Address [facility] Co de Phone Number LELAND [address] [facility] [place] [address] * ABO / Rh Confirmation Testing (05/07/2024 11:39 AM CDT) ABO/Rh Confirmation AB Positive B Comment:Testing performed by : [facility], [address] [place] [address]., [address] Blood 05/07/2024 11:3 9 AM CDT 05/07/2024 12:09 PM CDT Cornelius Garcia LAB BLOOD ORDERABLES Final R esult Performing Organization Address [facility] Co de Phone Number [address] [place] [address] B * ABO/Rh (05/07/2024 11:37 AM CDT) Pathologist [facility] ABO/Rh AB Positive Comment:Testing performed by : [facility], [address] [place] [address]., [address] Blood 05/07/2024 11:3 7 AM CDT 05/07/2024 12:09 PM CDT Narrative [facility] - 05/07/2024 12:48 PM CDT Has the patient had Daratumumab or Isatuximab in the past 6 months?->No Cornelius Garcia [employer] LAB BLOOD BANK TEST ORDERABL ES Final Result Performing Organization Address [facility] Co de Phone Number [address] [employer] [place] [address] * Crossmatch (05/07/2024 11:37 AM CDT) Pathologist [facility] Crossmatch Compatible [facility] Unit number for crossmatch [id number] [facility] Blood 05/07/2024 11:3 7 AM CDT 05/07/2024 12:09 PM CDT Cornelius Garcia DO LAB BLOOD BANK TEST ORDERABL ES Final Result Performing Organization Address City/[facility]/ZIP Co de Phone Number [address] [place] [address] * (ABNORMAL) Antibody screen (05/07/2024 11:37 AM CDT) Pathologist [facility] Elsie, indirect, Gel Interpretation Positive( A) Comment:Testing performed by : [address] [address] Blood 05/07/2024 11:3 7 AM CDT 05/07/2024 12:09 PM CDT Narrative LELAND - 05/07/2024 12:57 PM CDT Has the patient had Daratumumab or Isatuximab in the past 6 months?->No us Cornelius Garcia DO LAB BLOOD BANK TEST ORDERABL ES Final Result [facility] [address] [facility] Department [place] [address] * Differential, auto (05/07/2024 10:19 AM CDT) Pathologist [facility] Neutrophil abs 5.1 1.5 - 6.5 K/cumm Comment:Testing performed by : [address] [address] Imm gran abs 0.0 0.0 - 0.1 K/cumm LELAND Comment:Testing performed by : [address] [address] Lymphocyte abs 0.9 0.8 - 3.3 K/cumm LELAND Comment:Testing performed by : [address] [address] Monocyte abs 0.3 0.2 - 0.8 K/cumm LELAND Comment:Testing performed by : [address] [address] Eosinophil abs 0.1 0.0 - 0.5 K/cumm LELAND Comment:Testing performed by : [address] [address] Basophil abs 0.0 0.0 - 0.1 K/cumm LELAND Comment:Testing performed by : [address] [address] Neutrophil pct 79.1 % [facility] Comment: Interpretive Data Percent cell count reference ranges are not reported, since discordance with absolute values may lead to misinterpretation of CBC data. Current Interpretive Data was last revised on 2017. Testing performed by: [address] [address] Imm gran pct 0.3 % [facility] Comment: Interpretive Data Percent cell count reference ranges are not reported, since discordance with absolute values may lead to misinterpretation of CBC data. Current Interpretive Data was last revised on 2017. Testing performed by: [address] [address] Lymphocyte pct 13.6 % [facility] Comment: Interpretive Data Percent cell count reference ranges are not reported, since discordance with absolute values may lead to misinterpretation of CBC data. Current Interpretive Data was last revised on 2017. Testing performed by: [address] [address] Monocyte pct 5.0 % [facility] Comment: Interpretive Data Percent cell count reference ranges are not reported, since discordance with absolute values may lead to misinterpretation of CBC data. Current Interpretive Data was last revised on 2017. Testing performed by: [address] [address] Eosinophil pct 1.5 % [facility] Comment: Interpretive Data Percent cell count reference ranges are not reported, since discordance with absolute values may lead to misinterpretation of CBC data. Current Interpretive Data was last revised on 2017. Testing performed by: [address] [address] Basophil pct 0.5 % [facility] Comment: Interpretive Data Percent cell count reference ranges are not reported, since discordance with absolute values may lead to misinterpretation of CBC data. Current Interpretive Data was last revised on 2017. Testing performed by: [address] [address] Blood 05/07/2024 10:1 9 AM CDT 05/07/2024 10:23 AM CDT us Jacquelin M. [employer] DIRECTOR PLANS LAB BLOOD ORDERABLES Soco l Result Performing Organization Address [facility] Co de Phone Number JONO[address] [place] [address] * (ABNORMAL) Iron profile w/ IBC (05/07/2024 10:19 AM CDT) Iron 22(L) 35 - 145 mcg/dL Comment:Testing performed by : [address] [address] TIBC 407(H) 250 - 400 mcg/dL LELAND GARCIA Comment:Testing performed by : [address] [address] Transferrin saturation 5(L) 20 - 50 % LELAND GARCIA Comment:Testing performed by : [address] [address] Blood 05/07/2024 10:1 9 AM CDT 05/07/2024 12:09 PM CDT Jacquelin Rivero DIRECTOR PLANS LAB BLOOD ORDERABLES Soco l Result Performing Organization Address [facility] de Phone Number JONO[address] M:[place] [address] * (ABNORMAL) CBC with auto differential (05/07/2024 10:19 AM CDT) WBC 6.5 3.8 - 9.9 K/cumm Comment:Testing performed by : [address] [address] Hgb 7.6(L) 11.9 - 15.5 g/dL LELAND GARCIA Comment:Testing performed by : [address] [address] Hct 25.3(L) 35.6 - 45.5 % LELAND GARCIA Comment:Testing performed by : [address] [address] Plt 288 150 - 400 K/cumm LELAND GARCIA Comment:Testing performed by : [address] [address] MPV 10.7 9.1 - 12.3 fL LELAND Comment:Testing performed by : [address], [address] RBC 3.38(L) 3.90 - 5.20 M/cumm LELAND GARCIA Comment:Testing performed by : [address] [address] MCV 74.9(L) 81.3 - 96.4 fL LELAND Comment:Testing performed by : [address], [address] MCH 22.5(L) 27.1 - 33.3 pg LELAND Comment:Testing performed by : [address], [address] MCHC 30.0(L) 32.3 - 35.7 g/dL LELAND Comment:Testing performed by : [address], [address] RDW CV 15.3(H) 11.1 - 14.9 % LELAND Comment:Testing performed by : [address], [address] RDW SD 41.7 35.7 - 48.1 fL LELAND Comment:Testing performed by : [address], [address] NRBC abs 0.00 0.00 - 0.01 K/cumm LELAND Comment:Testing performed by : [address], [address] Blood 05/07/2024 10:1 9 AM CDT 05/07/2024 10:23 AM CDT us Jacquelin Rivero DIRECTOR PLANS LAB BLOOD ORDERABLES Soco gorman Result LELAND [address] [facility] Department of Laboratories [place], [place] [id number] * (ABNORMAL) Ferritin (05/07/2024 10:19 AM CDT) [facility] Ferritin 9(L) 15 - 150 ng/mL Comment:Testing performed by : [address] [address] Blood 05/07/2024 10:1 9 AM CDT 05/07/2024 12:09 PM CDT Jacquelin Rivero DIRECTOR PLANS LAB BLOOD ORDERABLES Soco l Result Performing Organization Address [facility] de Phone Number [address] [place] [address] * (ABNORMAL) Reticulocyte Count (05/07/2024 10:13 AM CDT) [facility] Retics, absolute 0.063 0.020 - 0.087 M/cumm Comment:Testing performed by : [address] [address] Retics 1.9 0.4 - 2.9 % LELAND Comment:Testing performed by : [facility], [address] [place] [address]., [address] Reticulocyte Hgb 16.9(L) 30.5 - 38.0 pg LELAND Comment:Testing performed by : [address] [address] Blood 05/07/2024 10:1 3 AM CDT 05/07/2024 11:16 AM CDT Cornelius Garcia DO LAB BLOOD ORDERABLES Final R esult Performing Organization Address [facility] de Phone Number [facility] [address] [facility] [place] [address] * Hepatitis panel, acute Blood (06/17/2023 2:12 PM CLINICAL PROGRAM MANAGER) [facility] Hep A IgM NON-REACTI VE NON-REACT EMILE [facility] Comment: For additional information, please refer to http://education.SkyGrid.[employer]/faq/MQQ817 (This link is being provided for informational/ educational purposes only.) HepBsAg NON-REACTI VE NON-REACT EMILE [facility] Comment: For additional information, please refer to http://[employer]/faq/YVP653 (This link is being provided for informational/ educational purposes only.) Hep B core IgM NON-REACTI VE NON-REACT EMILE [facility] Comment: For additional information, please refer to http://[employer]/faq/KQE310 (This link is being provided for informational/ educational purposes only.) Hep C Ab NON-REACTI VE NON-REACT EMILE [facility] Comment: HCV antibody was non-reactive. There is no laboratory evidence of HCV infection. In most cases, no further action is required. However, if recent HCV exposure is suspected, a test for HCV RNA (test code 73302) is suggested. For additional information please refer to http://Be[employer]ar/faq/VCL08p9 (This link is being provided for informational/ educational purposes only.) Blood 06/17/2023 2:12 PM CLINICAL PROGRAM MANAGER 06/17/2023 2:13 PM CLINICAL PROGRAM MANAGER Jing SALVADOR LAB MICROBIOLOGY - NERAL ORDERABLES Final Result [facility] [facility] [address] [place] [address] * HM PAP SMEAR WITH HPV (05/03/2021 3:03 PM CDT) Historical Provider HEALTH MAINTENANCE Edited Result - Final * HM COLONOSCOPY (10/12/2020) Historical Provider HEALTH MAINTENANCE Edited Result - Final from Last 3 Months or Most Recently Relevant to Health Maintenance Insurance ANTHEM ACCESS CHOICE ANTHEM ACCESS CHOICE ANTHEM ACCESS CHOICE ANTHEM ACCESS CHOICE Care Teams Corn [employer]k Baler Relationship Specialty Start Date End Date Starr Bran PA [address] [place], [place] [id number] PCP - General Internal Medicine 12/30/18 Bibiana Schuler MD [address] [place], [place] [id number] Consulting Physician Gastroenterology 05/11/21 Cornelius Garcia DO [address] [place] [address] MEDICAL ONCOLOGY, [facility] [address] [place], [place] [address] Medical Oncologist/Hematologis t Hematology and Oncology 09/26/21 Madhu Brito MD [address] [place] [address] Consulting Physician Rheumatology 05/22/23
--- OUTSIDE RECORDS SUMMARY | 2024-07-18 20:24 | XMS_ITS | Clinical Summary ---
Author Organization [facility] Address [address] [place] [address] Care Team Providers Care Desk Clerk Name Role Phone Starr Bran Primary Care Provider [phone] Bibiana Schuler MD Unavailable Cornelius Garcia DO Unavailable [phone] Madhu Brito MD Unavailable [phone] Allergies No known active allergies Medications multivitamin [...] (10 mg total) by mouth daily 4 024 Discontinued Hospital, Clinic, or Other Facility Administered [...] 07/12/2024 Assessment & Plan (07/12/2024 8:31 PM TRUST ADMINISTRATOR): Encouraged healthy lifestyle, good nutrition and exercise. [...] side. Assessment & Plan (06/15/2024 10:52 AM TRUST ADMINISTRATOR): Get bilateral UE EMG/NCS to evaluate for [...] identified. Assessment & Plan (06/15/2024 10:12 AM TRUST ADMINISTRATOR): 59-year-old female with PMHx of RLS, anemia [...] PE DVT. Will reach out to her journeyman millwright to discuss +/- AC prophylaxis with this patient Assessment & Plan (10/06/2023 5:11 PM CDT): Continue management with [facility]. Assessment & Plan (09/12/2023 12:58 PM TRUST ADMINISTRATOR): 58-year-old female with PMHx of RLS, anemia [...] needed. Assessment & Plan (08/08/2023 2:59 PM TRUST ADMINISTRATOR): 58-year-old female with PMHx of RLS, anemia [...] needed. Assessment & Plan (07/11/2023 1:20 PM TRUST ADMINISTRATOR): 58-year-old female with PMHx of RLS, anemia [...] unremarkable Assessment & Plan (06/17/2023 2:12 PM TRUST ADMINISTRATOR): 58-year-old female with PMHx of RLS, anemia [...] 05/09/2023 Assessment & Plan (07/12/2024 8:31 PM TRUST ADMINISTRATOR): Discussed the patient's BMI. The BMI is [...] 02/05/2023 Assessment & Plan (06/15/2024 10:09 AM TRUST ADMINISTRATOR): Elevated RF (20) on AVISE. C/o pain [...] RA. Assessment & Plan (09/12/2023 2:04 PM TRUST ADMINISTRATOR): Elevated RF (20) on AVISE. C/o pain and AM swelling/stiffness in the hands (R>L) but does not limit her daily activities and is overall tolerable. US R hand/wrist (07/2022) showed mild inflammatory findings but nothing obvious to suspect active RA at this time so will just continue to monitor symptoms. Assessment & Plan (08/08/2023 2:10 PM TRUST ADMINISTRATOR): Elevated RF (20) on AVISE. Now c/o new pain in R 5th PIP along with AM stiffness in the lower extremities. US R hand/wrist (07/2022) showed mild inflammatory findings but nothing obvious to suspect active RA at this time so will just continue to monitor symptoms. Assessment & Plan (07/11/2023 1:22 PM TRUST ADMINISTRATOR): Elevated RF (20) on AVISE. Now c/o [...] 09/06/2022 Assessment & Plan (07/12/2024 8:29 PM TRUST ADMINISTRATOR): Anemia had normalized. She used anticoagulation over [...] time. Assessment & Plan (07/31/2022 3:14 PM TRUST ADMINISTRATOR): Probably multifactorial. Check labs and followup to re-evaluate Assessment & Plan (05/26/2022 12:34 PM CDT): Probably multifactorial. Check labs and followup to re-evaluate Vasomotor symptoms due to menopause 08/31/2021 Assessment & Plan (07/12/2024 8:30 PM TRUST ADMINISTRATOR): Vasomotor symptoms have stabilized. She discontinued the [...] mg. Assessment & Plan (10/06/2022 10:25 PM TRUST ADMINISTRATOR): Stable with Effexor 225 Assessment & Plan (07/31/2022 3:14 PM TRUST ADMINISTRATOR): Continue Effexor 225 daily Assessment & Plan (01/21/2022 9:19 PM CDT): Will increase the Effexor to 225 mg. Will see if this helps with the vasomotor symptoms as well as her depression Assessment & Plan (10/16/2021 9:46 AM CDT): Continue the Effexor Assessment & Plan (08/31/2021 9:43 PM TRUST ADMINISTRATOR): Status post hysterectomy with bilateral salpingo oophorectomy. [...] PAP Assessment & Plan (08/31/2021 9:41 PM TRUST ADMINISTRATOR): Status post hysterectomy with bilateral salpingo oophorectomy. [...] 04/23/2021 Assessment & Plan (07/12/2024 8:30 PM TRUST ADMINISTRATOR): Depression symptoms have stabilized. She stopped the Effexor primarily because she felt like her perimenopausal symptoms head resolved. Will continue to monitor at this point. Assessment & Plan (10/06/2023 5:11 PM CDT): Continue venlafaxine 225 mg daily Assessment & Plan (05/18/2023 11:49 AM CDT): Symptoms still stable. Using Effexor 225 for vasomotor symptoms as well as depression. Assessment & Plan (10/06/2022 10:25 PM TRUST ADMINISTRATOR): Stable with venlafaxine 225 mg Assessment & Plan (07/31/2022 3:13 PM TRUST ADMINISTRATOR): Continue with the Effexor 225 daily Assessment [...] dose. Assessment & Plan (08/31/2021 9:40 PM TRUST ADMINISTRATOR): Increase Effexor to 150 mg. Continue to [...] 28 and then reassess Has followup with [facility] Awaiting clotting workup results. Low vitamin B12 level 11/15/2020 Overview (12/14/2020): Elevated parietal cell antibody (49.9) in 10/2020 Assessment & Plan (07/12/2024 8:31 PM TRUST ADMINISTRATOR): Supplement is still needed she has a [...] monthly Assessment & Plan (10/06/2022 10:25 PM TRUST ADMINISTRATOR): Continue B12 supplementation with monthly injections Assessment & Plan (07/31/2022 3:13 PM TRUST ADMINISTRATOR): Continue monthly injections and monitor labs Assessment [...] clotting issues. I will reach out her journeyman millwright and inquire about the benefit and risks of monitoring versus lifetime anticoagulation based on the new diagnosis. Assessment & Plan (08/31/2021 9:40 PM TRUST ADMINISTRATOR): Hematology has instructed her to stop the [...] 06/2023. 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 Improvement of anemia since starting treatment with cellcept in 06/2023. Assessment & Plan (06/17/2023 2:16 PM TRUST ADMINISTRATOR): Hx gastric antral vascular ectasia (GAVE syndrome) [...] 12/07/2022 Assessment & Plan (10/06/2022 10:25 PM TRUST ADMINISTRATOR): Persistent anemia. Appears to be secondary to GI cause. Continue per Dr. Schuler. Continue with iron vitamin-C supplement Continue B12 supplementation Assessment & Plan (07/31/2022 3:13 PM TRUST ADMINISTRATOR): Persistent anemia that appears to be GI [...] any bleeding she is to call her oracle technical developer as I do not want to have [...] dysfunction Assessment & Plan (06/15/2024 10:09 AM TRUST ADMINISTRATOR): CXR unremarkable. Baseline PFT and TTE are [...] capacity. Assessment & Plan (09/12/2023 1:00 PM TRUST ADMINISTRATOR): CXR unremarkable. New diagnosis of systemic sclerosis. Baseline PFT and TTE are unremarkable for signs of PAH. Grade 1 diastolic dysfunction noted on TTE but this was also seen on past TTE in 2020. PFT showed only mildly reduced diffuse capacity. Assessment & Plan (08/08/2023 2:59 PM TRUST ADMINISTRATOR): CXR unremarkable. New diagnosis of systemic sclerosis. Will get baseline PFT and TTE due to risk for pulm artery HTN. Assessment & Plan (07/11/2023 1:20 PM TRUST ADMINISTRATOR): CXR unremarkable. New diagnosis of systemic sclerosis. [...] to call her to take her to [facility] now. Assessment & Plan (10/09/2020 7:39 PM CDT): Appears to be improving since recving 3 units and H/H stabilized. Will monitor. If returns, may reschedule with Cardio. Assessment & Plan (09/25/2020 9:52 AM TRUST ADMINISTRATOR): Persistent sxs with activity. If she has CP, increased SOB, HR over 120 sustained or syncope she is to go to the ER. Check labs Limit caffeine Refer to cardio for further evaluation. Unable to do EKG as video visit. BMI 38.0-38.9,adult 01/19/2019 Assessment & Plan (07/01/2024 10:10 AM TRUST ADMINISTRATOR): Discussed the patient's BMI. The BMI is above average. BMI management plan is completed. BMI Follow-up includes: nutrition counseling, exercise counseling and education provided. Assessment & Plan (11/21/2023 8:34 AM CDT): Discussed the patient's BMI. The BMI is above average. BMI management plan is completed. BMI Follow-up includes: nutrition counseling, exercise counseling and education provided. Assessment & Plan (06/06/2020 9:20 AM TRUST ADMINISTRATOR): Obesity is unchanged. Discussed the patient's BMI. [...] 01/19/2019 Assessment & Plan (07/12/2024 8:29 PM TRUST ADMINISTRATOR): Check labs Assessment & Plan (07/31/2022 3:12 PM TRUST ADMINISTRATOR): Check labs Assessment & Plan (05/26/2022 12:29 [...] diabetes. Assessment & Plan (09/25/2020 9:53 AM TRUST ADMINISTRATOR): Pre-diabetes/hyperglycemia is a precursor to Dm. Stressed importance of working on diet (decrease your simple sugars and one carbohydrate with each meal) and increase you exercise to achieve weight loss and this will help prevent you from progressing to diabetes. Assessment & Plan (06/06/2020 9:20 AM TRUST ADMINISTRATOR): Pre-diabetes is a precursor to Dm. Stressed [...] re-evaluate Assessment & Plan (09/25/2020 9:53 AM TRUST ADMINISTRATOR): Probably multifactorial. Check labs and followup to re-evaluate Assessment & Plan (06/06/2020 9:20 AM TRUST ADMINISTRATOR): Probably multifactorial. Check labs and followup to re-evaluate Assessment & Plan (01/20/2019 12:32 AM CDT): Probably multifactorial. Check labs and followup to re-evaluate Essential hypertension 01/16/2019 Assessment & Plan (07/12/2024 8:29 PM TRUST ADMINISTRATOR): Bp is stable/in acceptable range for any [...] needed. Assessment & Plan (10/06/2022 10:22 PM TRUST ADMINISTRATOR): Bp is stable/in acceptable range for any co-morbidities. Encouraged to limit sodium intake and exercise for weight control. Continue lisinopril 10 Assessment & Plan (07/31/2022 3:12 PM TRUST ADMINISTRATOR): Bp is stable/in acceptable range for any [...] closely Assessment & Plan (09/25/2020 9:53 AM TRUST ADMINISTRATOR): Stable by history of home readings. Continue the lisinopril Assessment & Plan (06/06/2020 9:19 AM TRUST ADMINISTRATOR): Bp is stable/in acceptable range for any co-morbidities. Encouraged to limit sodium intake and exercise for weight control. Continue lisinopril Assessment & Plan (01/20/2019 12:31 AM CDT): Bp is stable/in acceptable range for any co-morbidities. Encouraged to limit sodium intake and exercise for weight control. Vitamin D deficiency 01/16/2019 Assessment & Plan (07/12/2024 8:29 PM TRUST ADMINISTRATOR): Supplement Assessment & Plan (10/06/2023 5:10 PM CDT): Supplement Assessment & Plan (05/18/2023 11:47 AM CDT): Continue supplementation Assessment & Plan (02/05/2023 1:50 PM CDT): Continue with daily supplementation Assessment & Plan (07/31/2022 3:12 PM TRUST ADMINISTRATOR): Supplement Assessment & Plan (05/26/2022 12:29 PM CDT): Supplement Assessment & Plan (10/16/2021 9:45 AM CDT): Check labs. She started supplement a couple of weeks ago per Dr. Radha and will recheck labs to make sure that she is in range. Assessment & Plan (02/19/2021 9:52 PM CDT): supplement Assessment & Plan (12/14/2020 2:19 PM CDT): Supplement Assessment & Plan (11/15/2020 11:07 PM CDT): supplement Assessment & Plan (06/06/2020 9:19 AM TRUST ADMINISTRATOR): supplement Assessment & Plan (01/20/2019 12:31 AM [...] BMI between 35.00-39.99. BMI 36.0-36.9,adult 03/19/2023 05/09/20 23 Assessment & Plan (03/19/2023 9:28 AM CDT): [...] and education provided. BMI 36.0-36.9,adult 02/05/2023 03/19/20 23 Assessment & Plan (02/05/2023 9:36 AM CDT): [...] age appropirate screenings. BMI 36.0-36.9,adult 10/04/2022 02/06/20 Assessment & Plan (10/04/2022 9:08 AM TRUST ADMINISTRATOR): Discussed the patient's BMI. The BMI is above average. BMI management plan is completed. BMI Follow-up includes: nutrition counseling, exercise counseling and education provided. Morbid obesity 10/04/2022 02/05/2023 Assessment & Plan (10/06/2022 10:26 PM TRUST ADMINISTRATOR): Discussed the patient's BMI. The BMI is [...] 10/04/2022 Assessment & Plan (07/31/2022 3:14 PM TRUST ADMINISTRATOR): Discussed the patient's BMI. The BMI is [...] 10/05/19 Assessment & Plan (07/31/2022 3:14 PM TRUST ADMINISTRATOR): Discussed the patient's BMI. The BMI is [...] 05/17/20212021 Assessment & Plan (08/31/2021 9:41 PM TRUST ADMINISTRATOR): Obesity is unchanged. Discussed the patient's BMI. [...] and education provided. BMI 35.0-35.9,adult 05/17/2021 10/17/19 Assessment & Plan (08/31/2021 9:41 PM TRUST ADMINISTRATOR): Obesity is unchanged. Discussed the patient's BMI. [...] provided. Assessment & Plan (10/04/2020 3:59 PM TRUST ADMINISTRATOR): Obesity is unchanged. Discussed the patient's BMI. [...] provided. Assessment & Plan (10/04/2020 3:59 PM TRUST ADMINISTRATOR): Obesity is unchanged. Discussed the patient's BMI. The BMI is above average. BMI management plan is completed. BMI Follow-up includes: nutrition counseling, exercise counseling and education provided. Obesity (BMI 30-39.9) 01/19/20192020 Assessment & Plan (06/06/2020 9:19 AM TRUST ADMINISTRATOR): Obesity is unchanged. Discussed the patient's BMI. [...] 021 Assessment & Plan (06/06/2020 9:21 AM TRUST ADMINISTRATOR): Encouraged healthy lifestyle, good nutrition and exercise. [...] 02/14/2021 Assessment & Plan (09/25/2020 9:53 AM TRUST ADMINISTRATOR): Check labs Assessment & Plan (01/20/2019 12:32 [...] menorrhagia but has been amenorrheic with DepoProvera. Encounters Date Type Department Care Team Description 07/16/2024 9:30 AM TRUST ADMINISTRATOR Clinical Support [facility] Family Medicine [address] [address] Vitamin B deficiency (Primar y Dx) 07/14/[address] [address] Jing Erwin PA 07/13/2024 9:30 AM TRUST ADMINISTRATOR Therapy [facility] Physical Therapy [address] [address] Paresthesia of hand, bilater al 07/13/2024 Orders Only [address] [place] [address] ProviderSlaoni MD 07/01/2024 10:00 AM TRUST ADMINISTRATOR Office Visit [address] [place] [address] Starr Bran PA Annual physical exam (Primary Dx); Low vitamin B12 level; Vasomotor symptoms due to menopause; Moderate episode of recurrent major depressive disorder (HCC); Hyperglycemia; Essential hypertension; Vitamin D deficiency; Anemia, unspecified type; Morbid obesity (HCC); BMI 38.0-38.9,adult 06/18/2024 8:45 AM TRUST ADMINISTRATOR Office Visit [facility] [address] [place] [address] [address] [place] [address] Cornelius Garcia DO History of pulmonary embolus (PE) (Primary Dx); History of DVT (deep vein thrombosis); Iron deficiency anemia due to chronic blood loss 06/18/2024 8:00 AM TRUST ADMINISTRATOR Lab [address] [address] Iron deficiency anemia due t o chronic blood loss 06/15/2024 10:30 AM TRUST ADMINISTRATOR Office Visit [address] [phone] Jing Erwin PA Systemic sclerosis (HCC) (Primary Dx); PHAN (dyspnea on exertion); Arthralgia of right hand; halfway current use of therapeutic drug; Paresthesia of hand, bilateral 06/11/2024 8:45 AM TRUST ADMINISTRATOR Lab [address] [address] Iron deficiency anemia due t o chronic blood loss 06/04/2024 8:00 AM TRUST ADMINISTRATOR Lab [address] [address] Iron deficiency anemia due t o chronic blood loss 05/28/2024 7:45 AM CDT Lab [facility] at [address] [address] Iron deficiency anemia due t o chronic blood loss 05/26/[address] [facility] Medical [facility] [address] [facility] [address] [place] [address] Starr Bran PA Essential hypertension (Primary Dx); B12 deficiency; Hyperglycemia; Vitamin D deficiency; BMI 36.0-36.9,adult; Other fatigue; Hyperlipidemia, unspecified hyperlipidemia type 05/22/2024 11:36 AM CDT Anesthesia Event [facility] [address] [place] [id number] Tommy Gonzalez MD 05/22/2024 11:15 AM CDT - 05/22/2024 11:45 AM CDT Surgery [facility] [address] [place] [address] Bibiana Schuler MD ESOPHAGOGASTRODUODENOSCOPY WITH ABLATION 05/22/2024 10:08 AM CDT - 05/22/2024 12:38 PM CDT Hospital Encounter [facility] [address] [place] [phone] Bibiana Schuler MD Discharge Disposition: Discharge to home or self care 05/21/2024 8:15 AM CDT Infusion [facility] at [address] [place] [address] Iron deficiency anemia due t o chronic blood loss (Primary Dx) 05/21/2024 7:45 AM CDT Lab [facility] at [address] [address] Iron deficiency anemia due t o chronic blood loss 05/20/2024 9:30 AM CDT Clinical Support [facility] Medical [facility] [address] [facility] [address] [place] [phone] 05/14/2024 8:45 AM CDT Infusion [facility] at [address] [place] [phone] Iron deficiency anemia due t o chronic blood loss (Primary Dx) 05/14/2024 8:00 AM CDT Lab [facility] at [address] [address] Iron deficiency anemia due t o chronic blood loss 05/11/2024 8:15 AM CDT Infusion [facility] at [address] [place] [phone] Iron deficiency anemia due t o chronic blood loss (Primary Dx) 05/08/2024 Telephone [facility] [address] [place] [phone] Chiquita Nguyen, ZACK 05/07/2024 11:00 AM CDT Office Visit [facility] [address] [place] [phone] Cornelius Garcia DO Iron deficiency anemia due to chronic blood loss (Primary Dx); History of DVT (deep vein thrombosis); History of pulmonary embolus (PE) 05/07/2024 10:30 AM CDT Lab [facility] at [address] [address] History of DVT (deep vein thrombosis); History of pulmonary embolus (PE); Iron deficiency anemia due to chronic blood loss 05/07/2024 Orders Only [facility] at [address] [address] Cornelius Garcia DO 04/22/2024 10:00 AM CDT Clinical Support [facility] Family [facility] [address] [address] Vitamin B deficiency (Primar y Dx) from Last 3 Months Immunizations Name Administration Dates Next Due Flucelvax Influenza Quad 05/24/2020 Influenza, Quadrivalent, Spl it, Preservative Free, Intramuscular 05/09/2023,05/17/2022,05/17/2021 Influenza, Unspecified 08/29/2022(Deferr ed: Patient Refused),07/29/2022(Deferred: Patient Refused),05/12/2021,07/29/2020(Deferre d: Patient Refused) Pfizer SARS-CoV-2 Monovalent Vaccination (12+ Yrs) PURPLE 11/25/2020,11/04/2020 Tdap 07/29/2014 Surgical History Surgery Date Site/Laterality Comments HYSTERECTOMY 08/08/2021 UPPER GASTROINTESTINAL ENDOSCOPY SECTION 12/27/1990 - 01/25/1991 COLONOSCOPY Medical History Medical History Date Comments Anemia Hypertension GAVE (gastric antral vascular ectasia) Diagnosed by Dr. Schuler after endoscopy GERD (gastroesophageal reflux disease) Depression Pulmonary embolism (HCC) 10/2021 Scleroderma (HCC) Family History Medical History Relation Name Comments No Known Problems Brother No Known Problems Child No Known Problems Cousin No Known Problems Daughter Hypertension Father No Known Problems Father's Brother No Known Problems Father's Sister No Known Problems Maternal Grandfather No Known Problems Maternal Grandmother No Known Problems Maternal Great-Grandfather No Known Problems Maternal Great-Grandmother No Known Problems Maternal Half-Brother No Known Problems Maternal Half-Sister No Known Problems Maternal cousin Hypertension Mother No Known Problems Mother's Brother No Known Problems Mother's Sister No Known Problems Nephew No Known Problems Niece No Known Problems Other No Known Problems Paternal Grandfather No Known Problems Paternal Grandmother No Known Problems Paternal Great-Grandfather No Known Problems Paternal Great-Grandmother No Known Problems Paternal Half-Brother No Known Problems Paternal Half-Sister No Known Problems Paternal cousin No Known Problems Sister No Known Problems Son BRCA 1 Neg Hx BRCA 2 Neg Hx Benign Breast Condition Neg Hx Breast cancer Neg Hx Ductal Carcinoma In-Situ Neg Hx Endometrial cancer Neg Hx Ovarian cancer Neg Hx Thyroid cancer Neg Hx Usual Breast Hyperplasia Neg Hx Relation Name Status Comments Brother Child Cousin Daughter Father Alive Father's Brother Father's Sister Maternal Grandfather Maternal Grandmother Maternal Great-Grandfather Maternal Great-Grandmother Maternal Half-Brother Maternal Half-Sister Maternal cousin Mother Alive Mother's Brother Mother's Sister Nephew Niece Other Paternal Grandfather Paternal Grandmother Paternal Great-Grandfather Paternal Great-Grandmother Paternal Half-Brother Paternal Half-Sister Paternal cousin Sister Son Social History Tobacco Use Types Packs/Day Years [...] on file Legal Sex Female 10:31 AM TRUST ADMINISTRATOR Gender Identity Female 02/02/2021 7:25 AM CDT Sexual Orientation Straight 02/02/2021 7: 25 AM CDT Obstetrics History Last Filed Vital Signs Vital Sign Reading Time Taken Comments Blood Pressure 122/72 07/01/2024 10:07 AM TRUST ADMINISTRATOR Pulse 74 07/01/2024 10:07 AM TRUST ADMINISTRATOR Temperature 36.6 ??C (97.9 ??F) 07/01/2024 1 0:07 AM TRUST ADMINISTRATOR Respiratory Rate 16 06/18/2024 8:32 AM TRUST ADMINISTRATOR Oxygen Saturation 99% 07/01/2024 10: 07 AM TRUST ADMINISTRATOR Inhaled Oxygen Concentration - - Weight 97.4 kg (214 lb 11.2 oz) 024 10:07 AM TRUST ADMINISTRATOR Height 160 cm (5' 3 ) 07/01/2024 10:07 AM TRUST ADMINISTRATOR Body Mass Index 38.03 07/01/2024 10:07 AM TRUST ADMINISTRATOR Plan of Treatment Health Maintenance Due Date Last Done Comments Pneumococcal vaccine <65 (1 of 2 - PCV) 02/20/1970 Hepatitis B Screening 02/20/1982 Zoster Vaccine (1 of 2) 02/20/1983 Covid-19 Vaccine (3 - Pfizer risk series) 12/23/2020 11/25/2020, 11/04/2020 DTaP/Tdap/Td Vaccine (2 - Td or Tdap) 07/29/2024 07/29/2014 Depression Screening 07/01/2025 07/01/2024, 11/20/2023, 09/19/2023, Additional history exists Regular Well Visit/Exam 18-64 07/01/2025, 02/05/2023, 10/16/2021, Additional history exists Breast Cancer Screening-Mammogram 07/13/2025 07/13/2024, 04/26/2022, 04/18/2021, Additional history exists Colon Cancer Screening-Colonoscopy 10/12/2030 10/12/2020, 10/12/2020 Colon Cancer Screening-DNA Stool Discontinued 10/12/2020, 10/12/2020, 10/11/2020, Additional history exists Cervical Cancer Screening Discontinued 05/03/2021 Hepatitis C Screening Completed 06/17/2023 Influenza Vaccine Completed 04/28/2024, , 05/17/2022, Additional history exists Procedures Procedure Name Priority Date/Time Associated Diagnosis Comments HM MAMMOGRAPHY Routine 07/13/2024 12:21 PM TRUST ADMINISTRATOR VITAMIN B12 Routine 06/29/2024 7:30 AM TRUST ADMINISTRATOR B12 deficiency TSH Routine 06/29/2024 7:29 AM TRUST ADMINISTRATOR BMI 36.0-36.9,adult Other fatigue LIPID PANEL Routine 06/29/2024 7:29 AM TRUST ADMINISTRATOR Hyperlipidemia, unspecified hyperlipidemia type HEMOGLOBIN A1C Routine 06/29/2024 7:29 AM TRUST ADMINISTRATOR Hyperglycemia COMPREHENSIVE METABOLIC PANEL Routine 7:29 AM TRUST ADMINISTRATOR Essential hypertension DIFFERENTIAL AUTO Routine 06/18/2024 8:04 AM TRUST ADMINISTRATOR Iron deficiency anemia due to chronic blood loss FERRITIN Routine 06/18/2024 8:04 AM TRUST ADMINISTRATOR Iron deficiency anemia due to chronic blood loss IRON PROFILE W/ IBC Routine 06/18/2024 8:04 AM TRUST ADMINISTRATOR Iron deficiency anemia due to chronic blood loss CBC WITH AUTO DIFFERENTIAL Routine 06/18 8:04 AM TRUST ADMINISTRATOR Iron deficiency anemia due to chronic blood loss CRP (ACUTE PHASE) Routine 06/15/2024 10:47 AM TRUST ADMINISTRATOR Systemic sclerosis (HCC) 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 current use of therapeutic drug ERYTHROCYTE SEDIMENTATION RATE Routine 1 08/15/2023 10:47 AM TRUST ADMINISTRATOR Systemic sclerosis (HCC) 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 current use of therapeutic drug COMPREHENSIVE METABOLIC PANEL Routine 10:47 AM TRUST ADMINISTRATOR Systemic sclerosis (HCC) 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 current use of therapeutic drug DIFFERENTIAL AUTO Routine 06/11/2024 8:53 AM TRUST ADMINISTRATOR Iron deficiency anemia due to chronic blood loss CBC WITH AUTO DIFFERENTIAL Routine 06/11 8:53 AM TRUST ADMINISTRATOR Iron deficiency anemia due to chronic blood loss DIFFERENTIAL AUTO Routine 06/04/2024 8:27 AM TRUST ADMINISTRATOR Iron deficiency anemia due to chronic blood loss CBC WITH AUTO DIFFERENTIAL Routine 06/04 8:27 AM TRUST ADMINISTRATOR Iron deficiency anemia due to chronic blood [...] HEPATITIS PANEL, ACUTE Routine 3 2:12 PM TRUST ADMINISTRATOR Fatigue, unspecified type HM PAP SMEAR WITH HPV Routine 05/03/2021 3:03 PM CDT HM COLONOSCOPY Routine 10/12/2020 from Last 3 Months or Most Recently Relevant to Health Maintenance Results * HM MAMMOGRAPHY (07/13/2024 12:21 PM TRUST ADMINISTRATOR) Mammography Normal Historical Provider HEALTH MAINTENANCE Edited Result - Final * Vitamin B12 (06/29/2024 7:30 AM TRUST ADMINISTRATOR) Vitamin B12 375 232 - 1,245 pg/mL [facility] - 01 Blood 06/29/2024 7:30 AM TRUST ADMINISTRATOR 06/29/2024 Narrative [facility] - 06/30/2024 9:37 AM TRUST ADMINISTRATOR Performed at: ??01 - [facility] [address] ??[id number] Publications Production Supervisor: Parveen Lofton PhD, Phone: ??[phone] Starr SALVADOR LAB BLOOD ORDERABLES Final Result [facility] - 01 * TSH (06/29/2024 7:29 AM TRUST ADMINISTRATOR) TSH 1.780 0.450 - 4.500 uIU/mL [facility] - 01 Blood 06/29/2024 7:29 AM TRUST ADMINISTRATOR 06/29/2024 Narrative [facility] - 06/30/2024 9:37 AM TRUST ADMINISTRATOR Performed at: ??01 - [facility] ??[id number] Publications Production Supervisor: Parveen Lofton PhD, Phone: ??[phone] Starr SALVADOR LAB BLOOD ORDERABLES Final Result Performing Organization Address [facility] Co de Phone Number [facility] - * Hemoglobin A1c (06/29/2024 7:29 AM TRUST ADMINISTRATOR) Hgb A1C 5.3 4.8 - 5.6 % [facility] - 01 Comment: ? Prediabetes: 5.7 - 6.4 ? Diabetes: >6.4 ? Glycemic control for adults with diabetes: <7.0 Blood 06/29/2024 7:29 AM TRUST ADMINISTRATOR 06/29/2024 Narrative [facility] - 06/30/2024 7:38 AM TRUST ADMINISTRATOR Performed at: ??01 - [facility] ??[id number] Publications Production Supervisor: Parveen Lofton PhD, Phone: ??[phone] Starr SALVADOR LAB BLOOD ORDERABLES Final Result Performing Organization Address [facility] Co de Phone Number [facility] - * Lipid panel (06/29/2024 7:29 AM TRUST ADMINISTRATOR) Cholesterol 143 100 - 199 mg/dL [facility] - 01 Triglycerides 129 0 - 149 mg/dL [facility] - 01 HDL Cholesterol 48 >39 mg/dL [facility] - 01 VLDL 23 5 - 40 mg/dL [facility] - 01 LDL, calculated 72 0 - 99 mg/dL [facility] - 01 Blood 06/29/2024 7:29 AM TRUST ADMINISTRATOR 06/29/2024 Narrative [facility] - 06/30/2024 7:38 AM TRUST ADMINISTRATOR Performed at: ??01 - [facility] [place] ??[id number] Publications Production Supervisor: Parveen Lofton PhD, Phone: ??[phone] Starr SALVADOR LAB BLOOD ORDERABLES Final Result [facility] - 01 * (ABNORMAL) Comprehensive metabolic panel (06/29/2024 7:29 AM TRUST ADMINISTRATOR) Glucose 104(H) 70 - 99 mg/dL [facility] [...] [facility] - 01 Blood 06/29/2024 7:29 AM TRUST ADMINISTRATOR 06/29/2024 Narrative [facility] - 06/30/2024 7:38 AM TRUST ADMINISTRATOR Performed at: ??01 - [facility] [address] ??[id number] Publications Production Supervisor: Parveen Lofton PhD, Phone: ??[phone] Starr SALVADOR LAB BLOOD ORDERABLES Final Result [facility] - 01 * (ABNORMAL) Differential, auto (06/18/2024 8:04 AM TRUST ADMINISTRATOR) Pathologist [facility] Neutrophil abs 3.0 1.5 - 6.5 K/cumm Comment:Testing performed by : [address] [address] Imm gran abs 0.0 0.0 - 0.1 K/cumm [facility] Comment:Testing performed by : [address] [address] Lymphocyte abs 0.7(L) 0.8 - 3.3 K/cumm [facility] Comment:Testing performed by : [address] [address] Monocyte abs 0.3 0.2 - 0.8 K/cumm [facility] Comment:Testing performed by : [address] [address] Eosinophil abs 0.2 0.0 - 0.5 K/cumm [facility] Comment:Testing performed by : [address] [address] Basophil abs 0.0 0.0 - 0.1 K/cumm [facility] Comment:Testing performed by : [address] [address] Neutrophil pct 71.1 % [facility] Comment: Interpretive Data Percent cell count reference ranges are not reported, since discordance with absolute values may lead to misinterpretation of CBC data. Current Interpretive Data was last revised on 2017. Testing performed by: [address] [address] Imm gran pct 0.5 % [facility] Comment: Interpretive Data Percent cell count reference ranges are not reported, since discordance with absolute values may lead to misinterpretation of CBC data. Current Interpretive Data was last revised on 2017. Testing performed by: [address] [address] Lymphocyte pct 16.1 % [facility] Comment: Interpretive Data Percent cell count reference ranges are not reported, since discordance with absolute values may lead to misinterpretation of CBC data. Current Interpretive Data was last revised on 2017. Testing performed by: [address] [address] Monocyte pct 7.0 % [facility] Comment: Interpretive Data Percent cell count reference ranges are not reported, since discordance with absolute values may lead to misinterpretation of CBC data. Current Interpretive Data was last revised on 2017. Testing performed by: [address] [address] Eosinophil pct 4.6 % [facility] Comment: Interpretive Data Percent cell count reference ranges are not reported, since discordance with absolute values may lead to misinterpretation of CBC data. Current Interpretive Data was last revised on 2017. Testing performed by: [address] [address] Basophil pct 0.7 % [facility] Comment: Interpretive Data Percent cell count reference ranges are not reported, since discordance with absolute values may lead to misinterpretation of CBC data. Current Interpretive Data was last revised on 2017. Testing performed by: [address] [address] Blood 06/18/2024 8:04 AM TRUST ADMINISTRATOR 06/18/2024 8:16 AM TRUST ADMINISTRATOR us Cornelius Garcia DO LAB BLOOD ORDERABLES Final R esult [facility] [address] [facility] [place] [address] * (ABNORMAL) Iron profile w/ IBC (06/18/2024 8:04 AM TRUST ADMINISTRATOR) Iron 49 35 - 145 mcg/dL Comment:Testing performed by : [address] [address] TIBC 375 250 - 400 mcg/dL [facility] Comment:Testing performed by : [address] [address] Transferrin saturation 13(L) 20 - 50 % [facility] Comment:Testing performed by : [address] [address] Blood 06/18/2024 8:04 AM TRUST ADMINISTRATOR 06/18/2024 9:50 AM TRUST ADMINISTRATOR Cornelius Garcia DO LAB BLOOD ORDERABLES Final R esult [facility] [address] [facility] Department [place] [address] * (ABNORMAL) CBC with auto differential (06/18/2024 8:04 AM TRUST ADMINISTRATOR) WBC 4.2 3.8 - 9.9 K/cumm Comment:Testing performed by : [address] [address] Hgb 10.0(L) 11.9 - 15.5 g/dL [facility] Comment:Testing performed by : [address] [address] Hct 33.0(L) 35.6 - 45.5 % [facility] Comment:Testing performed by : [address] [address] Plt 209 150 - 400 K/cumm [facility] Comment:Testing performed by : [address] [address] MPV 10.0 9.1 - 12.3 fL [facility] Comment:Testing performed by : [address] [address] RBC 4.30 3.90 - 5.20 M/cumm [facility] Comment:Testing performed by : [address] [address] MCV 76.7(L) 81.3 - 96.4 fL [facility] Comment:Testing performed by : [address] [address] MCH 23.3(L) 27.1 - 33.3 pg [facility] Comment:Testing performed by : [address] [address] MCHC 30.3(L) 32.3 - 35.7 g/dL [facility] Comment:Testing performed by : [address] [address] RDW CV 18.7(H) 11.1 - 14.9 % [facility] GARCIA Comment:Testing performed by : [address] [address] RDW SD 51.6(H) 35.7 - 48.1 fL [facility] Comment:Testing performed by : [address] [address] NRBC abs 0.00 0.00 - 0.01 K/cumm [facility] Comment:Testing performed by : [address], [address] Blood 06/18/2024 8:04 AM TRUST ADMINISTRATOR 06/18/2024 8:16 AM TRUST ADMINISTRATOR Cornelius Garcia DO LAB BLOOD ORDERABLES Final R esult Performing Organization Address [facility] Co de Phone Number [address] [place] [address] * Ferritin (06/18/2024 8:04 AM TRUST ADMINISTRATOR) Pathologist [facility] Ferritin 29 15 - 150 ng/mL Comment:Testing performed by : [address], [address] Blood 06/18/2024 8:04 AM TRUST ADMINISTRATOR 06/18/2024 9:50 AM TRUST ADMINISTRATOR Cornelius Garcia DO LAB BLOOD ORDERABLES Final R esult Performing Organization Address City/[facility] Co de Phone Number [address] [place] [address] * Erythrocyte sedimentation rate (06/15/2024 10:47 AM TRUST ADMINISTRATOR) Erythrocyte sedimentation rate 2 < OR = 30 mm/h [facility] Blood 06/15/2024 10:4 7 AM TRUST ADMINISTRATOR 06/15/2024 10:47 AM TRUST ADMINISTRATOR Jing SALVADOR LAB BLOOD ORDERABLES Final Result Performing Organization Address [facility] Co de Phone Number [facility] [address] [place] [address] * CRP (acute phase) (06/15/2024 10:47 AM TRUST ADMINISTRATOR) C-RP <3.0 <8.0 mg/L [facility] Blood 06/15/2024 10:4 7 AM TRUST ADMINISTRATOR 06/15/2024 10:47 AM TRUST ADMINISTRATOR Jing SALVADOR LAB BLOOD ORDERABLES Final Result Performing Organization Address [facility] de Phone Number [facility] [address] [place] [address] * Comprehensive metabolic panel (06/15/2024 10:47 AM TRUST ADMINISTRATOR) Glucose 91 65 - 99 mg/dL [facility] Blood 06/15/2024 10:4 7 AM TRUST ADMINISTRATOR 06/15/2024 10:47 AM TRUST ADMINISTRATOR Jing SALVADOR LAB BLOOD ORDERABLES Final Result Performing Organization Address City/State/[facility] Co de Phone Number [facility] [address] [place] [address] * Differential, auto (06/11/2024 8:53 AM TRUST ADMINISTRATOR) Neutrophil abs 3.0 1.5 - 6.5 K/cumm Comment:Testing performed by : [address] [address] Imm gran abs 0.0 0.0 - 0.1 K/cumm [facility] Comment:Testing performed by : [address] [address] Lymphocyte abs 0.8 0.8 - 3.3 K/cumm [facility] Comment:Testing performed by : [address] [address] Monocyte abs 0.3 0.2 - 0.8 K/cumm [facility] Comment:Testing performed by : [address] [address] Eosinophil abs 0.2 0.0 - 0.5 K/cumm [facility] Comment:Testing performed by : [address] [address] Basophil abs 0.0 0.0 - 0.1 K/cumm [facility] Comment:Testing performed by : [address] [address] Neutrophil pct 68.9 % [facility] Comment: Interpretive Data Percent cell count reference ranges are not reported, since discordance with absolute values may lead to misinterpretation of CBC data. Current Interpretive Data was last revised on 2017. Testing performed by: [address] [address] Imm gran pct 0.5 % [facility] Comment: Interpretive Data Percent cell count reference ranges are not reported, since discordance with absolute values may lead to misinterpretation of CBC data. Current Interpretive Data was last revised on 2017. Testing performed by: [address] [address] Lymphocyte pct 18.9 % [facility] Comment: Interpretive Data Percent cell count reference ranges are not reported, since discordance with absolute values may lead to misinterpretation of CBC data. Current Interpretive Data was last revised on 2017. Testing performed by: [address] [address] Monocyte pct 7.5 % [facility] Comment: Interpretive Data Percent cell count reference ranges are not reported, since discordance with absolute values may lead to misinterpretation of CBC data. Current Interpretive Data was last revised on 2017. Testing performed by: [address] [address] Eosinophil pct 3.7 % [facility] Comment: Interpretive Data Percent cell count reference ranges are not reported, since discordance with absolute values may lead to misinterpretation of CBC data. Current Interpretive Data was last revised on 2017. Testing performed by: [address] [address] Basophil pct 0.5 % [facility] Comment: Interpretive Data Percent cell count reference ranges are not reported, since discordance with absolute values may lead to misinterpretation of CBC data. Current Interpretive Data was last revised on 2017. Testing performed by: [address] [address] Blood 06/11/2024 8:53 AM TRUST ADMINISTRATOR 06/11/2024 8:54 AM TRUST ADMINISTRATOR Cornelius Garcia DO LAB BLOOD ORDERABLES Final R esult [facility] [address] [facility] [place] [address] * (ABNORMAL) CBC with auto differential (06/11/2024 8:53 AM TRUST ADMINISTRATOR) Pathologist [facility] WBC 4.3 3.8 - 9.9 K/cumm Comment:Testing performed by : [address] [address] Hgb 9.9(L) 11.9 - 15.5 g/dL [facility] Comment:Testing performed by : [address] [address] Hct 32.5(L) 35.6 - 45.5 % [facility] Comment:Testing performed by : [address] [address] Plt 254 150 - 400 K/cumm [facility] Comment:Testing performed by : [address] [address] MPV 9.5 9.1 - 12.3 fL [facility] Comment:Testing performed by : [address] [address] RBC 4.26 3.90 - 5.20 M/cumm [facility] Comment:Testing performed by : [address] [address] MCV 76.3(L) 81.3 - 96.4 fL [facility] Comment:Testing performed by : [address] [address] MCH 23.2(L) 27.1 - 33.3 pg [facility] Comment:Testing performed by : [address] [address] MCHC 30.5(L) 32.3 - 35.7 g/dL [facility] Comment:Testing performed by : [address] [address] RDW CV 19.1(H) 11.1 - 14.9 % [facility] G[facility]IA Comment:Testing performed by : [address] [address] RDW SD 53.1(H) 35.7 - 48.1 fL [facility] G[facility] Comment:Testing performed by : [address] [address] NRBC abs 0.00 0.00 - 0.01 K/cumm [facility] Comment:Testing performed by : [address] [address] Blood 06/11/2024 8:53 AM TRUST ADMINISTRATOR 06/11/2024 8:54 AM TRUST ADMINISTRATOR Cornelius Garcia DO LAB BLOOD ORDERABLES Final R esult Performing Organization Address City/State/[facility] Co de Phone Number [facility] [address] [facility] Department [place] [address] * (ABNORMAL) Differential, auto (06/04/2024 8:27 AM TRUST ADMINISTRATOR) Neutrophil abs 2.4 1.5 - 6.5 K/cumm Comment:Testing performed by : [address] [address] Imm gran abs 0.0 0.0 - 0.1 K/cumm [facility] Comment:Testing performed by : [address] [address] Lymphocyte abs 0.7(L) 0.8 - 3.3 K/cumm [facility] Comment:Testing performed by : [address] [address] Monocyte abs 0.4 0.2 - 0.8 K/cumm [facility] Comment:Testing performed by : [address] [address] Eosinophil abs 0.2 0.0 - 0.5 K/cumm [facility] Comment:Testing performed by : [address] [address] Basophil abs 0.0 0.0 - 0.1 K/cumm [facility] Comment:Testing performed by : [address] [address] Neutrophil pct 65.1 % [facility] Comment: Interpretive Data Percent cell count reference ranges are not reported, since discordance with absolute values may lead to misinterpretation of CBC data. Current Interpretive Data was last revised on 2017. Testing performed by: [address] [address] Imm gran pct 0.3 % [facility] Comment: Interpretive Data Percent cell count reference ranges are not reported, since discordance with absolute values may lead to misinterpretation of CBC data. Current Interpretive Data was last revised on 2017. Testing performed by: [address] [address] Lymphocyte pct 19.6 % [facility] Comment: Interpretive Data Percent cell count reference ranges are not reported, since discordance with absolute values may lead to misinterpretation of CBC data. Current Interpretive Data was last revised on 2017. Testing performed by: [address] [address] Monocyte pct 10.2 % [facility] Comment: Interpretive Data Percent cell count reference ranges are not reported, since discordance with absolute values may lead to misinterpretation of CBC data. Current Interpretive Data was last revised on 2017. Testing performed by: [address] [address] Eosinophil pct 4.3 % [facility] Comment: Interpretive Data Percent cell count reference ranges are not reported, since discordance with absolute values may lead to misinterpretation of CBC data. Current Interpretive Data was last revised on 2017. Testing performed by: [address] [address] Basophil pct 0.5 % [facility] Comment: Interpretive Data Percent cell count reference ranges are not reported, since discordance with absolute values may lead to misinterpretation of CBC data. Current Interpretive Data was last revised on 2017. Testing performed by: [address] [address] Blood 06/04/2024 8:27 AM TRUST ADMINISTRATOR 06/04/2024 8:29 AM TRUST ADMINISTRATOR Cornelius Garcia DO LAB BLOOD ORDERABLES Final R esult [facility] [address] [facility] [place] [address] * (ABNORMAL) CBC with auto differential (06/04/2024 8:27 AM TRUST ADMINISTRATOR) WBC 3.7(L) 3.8 - 9.9 K/cumm Comment:Testing performed by : [address] [address] Hgb 10.0(L) 11.9 - 15.5 g/dL [facility] Comment:Testing performed by : [address] [address] Hct 33.6(L) 35.6 - 45.5 % [facility] Comment:Testing performed by : [address] [address] Plt 228 150 - 400 K/cumm [facility] Comment:Testing performed by : [address] [address] MPV 10.2 9.1 - 12.3 fL [facility] Comment:Testing performed by : [address] [address] RBC 4.31 3.90 - 5.20 M/cumm [facility] Comment:Testing performed by : [address] [address] MCV 78.0(L) 81.3 - 96.4 fL [facility] Comment:Testing performed by : [address] [address] MCH 23.2(L) 27.1 - 33.3 pg [facility] Comment:Testing performed by : [address] [address] MCHC 29.8(L) 32.3 - 35.7 g/dL [facility] Comment:Testing performed by : [address] [address] RDW CV 19.7(H) 11.1 - 14.9 % [facility] Comment:Testing performed by : [address] [address] RDW SD 55.0(H) 35.7 - 48.1 fL [facility] Comment:Testing performed by : [address] [address] NRBC abs 0.00 0.00 - 0.01 K/cumm [facility] Comment:Testing performed by : [address] [address] Blood 06/04/2024 8:27 AM TRUST ADMINISTRATOR 06/04/2024 8:29 AM TRUST ADMINISTRATOR us Cornelius Garcia DO LAB BLOOD ORDERABLES Final R esult [facility] [address] [facility] Department [place] [address] * Differential, auto (05/28/2024 8:06 AM CDT) Neutrophil abs 3.2 1.5 - 6.5 K/cumm Comment:Testing performed by : [address] [address] Imm gran abs 0.0 0.0 - 0.1 K/cumm [facility] Comment:Testing performed by : [address] [address] Lymphocyte abs 0.8 0.8 - 3.3 K/cumm [facility] Comment:Testing performed by : [address] [address] Monocyte abs 0.4 0.2 - 0.8 K/cumm [facility] Comment:Testing performed by : [address] [address] Eosinophil abs 0.1 0.0 - 0.5 K/cumm [facility] Comment:Testing performed by : [address] [address] Basophil abs 0.0 0.0 - 0.1 K/cumm [facility] Comment:Testing performed by : [address] [address] Neutrophil pct 71.4 % [facility] Comment: Interpretive Data Percent cell count reference ranges are not reported, since discordance with absolute values may lead to misinterpretation of CBC data. Current Interpretive Data was last revised on 2017. Testing performed by: [address] [address] Imm gran pct 0.2 % [facility] Comment: Interpretive Data Percent cell count reference ranges are not reported, since discordance with absolute values may lead to misinterpretation of CBC data. Current Interpretive Data was last revised on 2017. Testing performed by: [address] [address] Lymphocyte pct 17.2 % [facility] Comment: Interpretive Data Percent cell count reference ranges are not reported, since discordance with absolute values may lead to misinterpretation of CBC data. Current Interpretive Data was last revised on 2017. Testing performed by: [address] [address] Monocyte pct 7.9 % [facility] Comment: Interpretive Data Percent cell count reference ranges are not reported, since discordance with absolute values may lead to misinterpretation of CBC data. Current Interpretive Data was last revised on 2017. Testing performed by: [address] [address] Eosinophil pct 2.9 % [facility] Comment: Interpretive Data Percent cell count reference ranges are not reported, since discordance with absolute values may lead to misinterpretation of CBC data. Current Interpretive Data was last revised on 2017. Testing performed by: [address] [address] Basophil pct 0.4 % [facility] Comment: Interpretive Data Percent cell count reference ranges are not reported, since discordance with absolute values may lead to misinterpretation of CBC data. Current Interpretive Data was last revised on 2017. Testing performed by: [address] [address] Blood 05/28/2024 8:06 AM CDT 05/28/2024 8:14 AM CDT Cornelius Garcia DO LAB BLOOD ORDERABLES Final R esult [facility] [address] [facility] [place] [address] * (ABNORMAL) CBC with auto differential (05/28/2024 8:06 AM CDT) WBC 4.5 3.8 - 9.9 K/cumm Comment:Testing performed by : [address] [address] Hgb 9.6(L) 11.9 - 15.5 g/dL [facility] Comment:Testing performed by : [address] [address] Hct 32.0(L) 35.6 - 45.5 % [facility] Comment:Testing performed by : [address] [address] Plt 252 150 - 400 K/cumm [facility] Comment:Testing performed by : [address] [address] MPV 10.0 9.1 - 12.3 fL [facility] Comment:Testing performed by : [address] [address] RBC 4.11 3.90 - 5.20 M/cumm [facility] Comment:Testing performed by : [address] [address] MCV 77.9(L) 81.3 - 96.4 fL [facility] Comment:Testing performed by : [address] [address] MCH 23.4(L) 27.1 - 33.3 pg [facility] GARCIA Comment:Testing performed by : [address] [address] MCHC 30.0(L) 32.3 - 35.7 g/dL [facility] Comment:Testing performed by : [address], [address] RDW CV 20.3(H) 11.1 - 14.9 % [facility] G[facility] Comment:Testing performed by : [address] [address] RDW SD 54.3(H) 35.7 - 48.1 fL [facility] GARCIA Comment:Testing performed by : [facility], [address] [place] [address]., [address] NRBC abs 0.00 0.00 - 0.01 K/cumm [facility] Comment:Testing performed by : [facility], [address] [place] [address]., [address] Blood 05/28/2024 8:06 AM CDT 05/28/2024 8:14 AM CDT us Cornelius Garcia DO LAB BLOOD ORDERABLES Final R esult [facility] [address] [facility] [place] [address] * EGD (05/22/2024 11:27 AM CDT) Anatomical Region Laterality Modality Other Narrative Procedure Note Bibiana Schuler MD - 05/22/2024 11:27 AM CDT [facility] Patient Name: Viktoriya Bell Procedure Date: 05/22/2024 11:27AM Date of : 1965 Admit Type: Outpatient Age: 59 Gender: Female Attending MD: Bibiana Schuler M.D. Room: [facility] ENDOSCOPY ROOM [facility] Note Status: Finalized Procedure: Upper GI endoscopy [...] On: 05/22/2024 11:27 AM Recognized by the [employer] for promoting quality in endoscopy Bibiana Schuler MD ENDOSCOPY PROCEDURES Soco l Result * (ABNORMAL) Differential, auto (05/21/2024 7:55 AM CDT) Neutrophil abs 3.3 1.5 - 6.5 K/cumm Comment:Testing performed by : [address] [address] Imm gran abs 0.0 0.0 - 0.1 K/cumm [facility] Comment:Testing performed by : [address], [place]., [address] Lymphocyte abs 0.6(L) 0.8 - 3.3 K/cumm [facility] Comment:Testing performed by : [address], [place]., [address] Monocyte abs 0.3 0.2 - 0.8 K/cumm [facility] Comment:Testing performed by : [address] [address] Eosinophil abs 0.2 0.0 - 0.5 K/cumm [facility] Comment:Testing performed by : [address] [address] Basophil abs 0.0 0.0 - 0.1 K/cumm [facility] Comment:Testing performed by : [address] [address] Neutrophil pct 74.1 % [facility] [facility] Comment: Interpretive Data Percent cell count reference ranges are not reported, since discordance with absolute values may lead to misinterpretation of CBC data. Current Interpretive Data was last revised on 2017. Testing performed by: [address] [address] Imm gran pct 0.2 % [facility] Comment: Interpretive Data Percent cell count reference ranges are not reported, since discordance with absolute values may lead to misinterpretation of CBC data. Current Interpretive Data was last revised on 2017. Testing performed by: [address] [address] Lymphocyte pct 14.4 % CERNER Comment: Interpretive Data Percent cell count reference ranges are not reported, since discordance with absolute values may lead to misinterpretation of CBC data. Current Interpretive Data was last revised on 2017. Testing performed by: [address] [address] Monocyte pct 7.2 % CERNER Comment: Interpretive Data Percent cell count reference ranges are not reported, since discordance with absolute values may lead to misinterpretation of CBC data. Current Interpretive Data was last revised on 2017. Testing performed by: [address] [address] Eosinophil pct 3.6 % LELAND GARCIA Comment: Interpretive Data Percent cell count reference ranges are not reported, since discordance with absolute values may lead to misinterpretation of CBC data. Current Interpretive Data was last revised on 2017. Testing performed by: [address] [address] Basophil pct 0.5 % LELAND Comment: Interpretive Data Percent cell count reference ranges are not reported, since discordance with absolute values may lead to misinterpretation of CBC data. Current Interpretive Data was last revised on 2017. Testing performed by: [address] [address] Blood 05/21/2024 7:55 AM CDT 05/21/2024 7:59 AM CDT us Cornelius Garcia DO LAB BLOOD ORDERABLES Final R esult LELAND [address] [facility] [place] [address] * (ABNORMAL) CBC with auto differential (05/21/2024 7:55 AM CDT) WBC 4.4 3.8 - 9.9 K/cumm Comment:Testing performed by : [address] [address] Hgb 9.2(L) 11.9 - 15.5 g/dL LELAND GARCIA Comment:Testing performed by : [address] [address] Hct 30.6(L) 35.6 - 45.5 % LELAND GARCIA Comment:Testing performed by : [address] [address] Plt 242 150 - 400 K/cumm LELAND GARCIA Comment:Testing performed by : [address] [address] MPV 10.9 9.1 - 12.3 fL LELAND GARCIA Comment:Testing performed by : [address] [address] RBC 3.99 3.90 - 5.20 M/cumm LELAND GARCIA Comment:Testing performed by : [address] [address] MCV 76.7(L) 81.3 - 96.4 fL LELAND Comment:Testing performed by : [address] [address] MCH 23.1(L) 27.1 - 33.3 pg LELAND Comment:Testing performed by : [address] [address] MCHC 30.1(L) 32.3 - 35.7 g/dL LELAND Comment:Testing performed by : [address] [address] RDW CV 17.2(H) 11.1 - 14.9 % LELAND Comment:Testing performed by : [address] [address] RDW SD 46.8 35.7 - 48.1 fL LELAND Comment:Testing performed by : [address] [address] NRBC abs 0.00 0.00 - 0.01 K/cumm LELAND Comment:Testing performed by : [address] [address] Blood 05/21/2024 7:55 AM CDT 05/21/2024 7:59 AM CDT Cornelius Garcia DO LAB BLOOD ORDERABLES Final R esult JONOANA MARIA [address] [facility] [place] [address] * Differential, auto (05/14/2024 8:07 AM CDT) Neutrophil abs 3.3 1.5 - 6.5 K/cumm Comment:Testing performed by : [facility], [address] [place] [address]., [address] Imm gran abs 0.0 0.0 - 0.1 K/cumm [facility] Comment:Testing performed by : [address], [place]., [address] Lymphocyte abs 0.9 0.8 - 3.3 K/cumm [facility] Comment:Testing performed by : [address], [place]., [address] Monocyte abs 0.4 0.2 - 0.8 K/cumm [facility] Comment:Testing performed by : [address] [address] Eosinophil abs 0.1 0.0 - 0.5 K/cumm [facility] Comment:Testing performed by : [address], [place]., [address] Basophil abs 0.1 0.0 - 0.1 K/cumm [facility] Comment:Testing performed by : [address] [address] Neutrophil pct 69.4 % [facility] Comment: Interpretive Data Percent cell count reference ranges are not reported, since discordance with absolute values may lead to misinterpretation of CBC data. Current Interpretive Data was last revised on 2017. Testing performed by: [address] [address] Imm gran pct 0.2 % [facility] Comment: Interpretive Data Percent cell count reference ranges are not reported, since discordance with absolute values may lead to misinterpretation of CBC data. Current Interpretive Data was last revised on 2017. Testing performed by: [address] [address] Lymphocyte pct 17.7 % [facility] Comment: Interpretive Data Percent cell count reference ranges are not reported, since discordance with absolute values may lead to misinterpretation of CBC data. Current Interpretive Data was last revised on 2017. Testing performed by: [address] [address] Monocyte pct 9.0 % [facility] Comment: Interpretive Data Percent cell count reference ranges are not reported, since discordance with absolute values may lead to misinterpretation of CBC data. Current Interpretive Data was last revised on 2017. Testing performed by: [address] [address] Eosinophil pct 2.7 % LELAND GARCIA Comment: Interpretive Data Percent cell count reference ranges are not reported, since discordance with absolute values may lead to misinterpretation of CBC data. Current Interpretive Data was last revised on 2017. Testing performed by: [address] [address] Basophil pct 1.0 % LELAND Comment: Interpretive Data Percent cell count reference ranges are not reported, since discordance with absolute values may lead to misinterpretation of CBC data. Current Interpretive Data was last revised on 2017. Testing performed by: [address] [address] Blood 05/14/2024 8:07 AM CDT 05/14/2024 8:09 AM CDT us Cornelius Garcia DO LAB BLOOD ORDERABLES Final R esult LELAND [address] [facility] [place] [address] * (ABNORMAL) CBC with auto differential (05/14/2024 8:07 AM CDT) WBC 4.8 3.8 - 9.9 K/cumm Comment:Testing performed by : [address] [address] Hgb 9.0(L) 11.9 - 15.5 g/dL LELAND GARCIA Comment:Testing performed by : [address] [address] Hct 30.4(L) 35.6 - 45.5 % LELAND GARCIA Comment:Testing performed by : [address] [address] Plt 286 150 - 400 K/cumm LELAND GARCIA Comment:Testing performed by : [address] [place]., [address] MPV 10.6 9.1 - 12.3 fL LELAND Comment:Testing performed by : [address], [address] RBC 3.95 3.90 - 5.20 M/cumm LELAND GARCIA Comment:Testing performed by : [address] [address] MCV 77.0(L) 81.3 - 96.4 fL LELAND Comment:Testing performed by : [address] [address] MCH 22.8(L) 27.1 - 33.3 pg LELAND Comment:Testing performed by : [address], [address] MCHC 29.6(L) 32.3 - 35.7 g/dL LELAND Comment:Testing performed by : [address], [address] RDW CV 16.0(H) 11.1 - 14.9 % LELAND Comment:Testing performed by : [address], [address] RDW SD 43.8 35.7 - 48.1 fL LELAND Comment:Testing performed by : [address], [address] NRBC abs 0.00 0.00 - 0.01 K/cumm LELAND Comment:Testing performed by : [address], [address] Blood 05/14/2024 8:07 AM CDT 05/14/2024 8:09 AM CDT Cornelius Garcia DO LAB BLOOD ORDERABLES Final R esult LELAND GARCIA [address] [facility] [place] [address] * Transfuse RBC (05/11/2024 11:10 AM CDT) Blood Cornelius Garcia DO BLOOD TRANSFUSION ORDERABLES Final Result * Prepare RBC: 1 Units (05/09/2024 9:59 AM CDT) Pathologist [facility] Units requested 1 Comment:Testing performed by : [address] [address] Units requested Ready [facility] Comment:Testing performed by : [address] [address] Unit Number [id number] Product code [id number] [facility] Blood Expiration Date [facility] Product Blood Type (for scanning) 8400 [facility] Product Blood Type ABPOS [facility] Dispense Status DISPENSED [facility] Blood 05/09/2024 9:59 AM CDT 05/09/2024 9:59 AM CDT Cornelius Garcia DO BLOOD BANK PRODUCT ORDERABLE S Final Result Performing Organization Address City/[facility] Co de Phone Number [address] [place] [address] * Antibody Identification SO (05/07/2024 2:45 PM CDT) [facility] Antibody ID Reference Lab/Send Out Anti-Drake Comment:Testing performed by : [address] [address] Blood 05/07/2024 2:45 PM CDT 05/07/2024 5:39 PM CDT Cornelius Garcia DO LAB BLOOD BANK TEST ORDERABL ES Final Result Performing Organization Address [facility] Co de Phone Number [address] [place] [address] * RBC Antigen Serologic Phenotyping (05/07/2024 2:45 PM CDT) [facility] Erythrocyte ag c Positive Comment:Testing performed by : [address] [address] Erythrocyte ag C Positive LELAND Comment:Testing performed by : [facility], [address] [place] [address]., [address] Erythrocyte ag e Positive LELAND GARCIA Comment:Testing performed by : [facility], [address] [place] [address]., [address] Erythrocyte ag E Negative LELAND Comment:Testing performed by : [address] [address] Blood 05/07/2024 2:45 PM CDT 05/08/2024 7:41 PM CDT Cornelius Garcia LAB BLOOD BANK TEST ORDERABL ES Final Result Performing Organization Address City/[facility]/ZIP Co de Phone Number JONOANA MARIA [address] [place] [address] * ABO / Rh Confirmation Testing (05/07/2024 11:39 AM CDT) ABO/Rh Confirmation AB Positive [facility] Comment:Testing performed by : [address] [address] Blood 05/07/2024 11:3 9 AM CDT 05/07/2024 12:09 PM CDT Cornelius Garcia DO LAB BLOOD ORDERABLES Final R esult Performing Organization Address City/[facility]/ZIP Co de Phone Number [address] [place] [address] [facility] * ABO/Rh (05/07/2024 11:37 AM CDT) ABO/Rh AB Positive Comment:Testing performed by : [address] [address] Blood 05/07/2024 11:3 7 AM CDT 05/07/2024 12:09 PM CDT Narrative LELAND - 05/07/2024 12:48 PM CDT Has the patient had Daratumumab or Isatuximab in the past 6 months?->No Cornelius Vinh Garcia DO LAB BLOOD BANK TEST ORDERABL ES Final Result Performing Organization Address [facility] Co de Phone Number [address] [place] [employer] [address] * Crossmatch (05/07/2024 11:37 AM CDT) Pathologist [facility] Crossmatch Compatible [facility] Unit number for crossmatch [id number] [facility] Blood 05/07/2024 11:3 7 AM CDT 05/07/2024 12:09 PM CDT Cornelius Vinh Garcia LAB BLOOD BANK TEST ORDERABL ES Final Result Performing Organization Address [facility] de Phone Number [address] [place] [address] * (ABNORMAL) Antibody screen (05/07/2024 11:37 AM CDT) Pathologist [facility] Elsie, indirect, Gel Interpretation Positive( A) Comment:Testing performed by : [address] [address] Blood 05/07/2024 11:3 7 AM CDT 05/07/2024 12:09 PM CDT Narrative [facility] - 05/07/2024 12:57 PM CDT Has the patient had Daratumumab or Isatuximab in the past 6 months?->No Cornelius Garcia LAB BLOOD BANK TEST ORDERABL ES Final Result Performing Organization Address [facility] Co de Phone Number [address] [address] * Differential, auto (05/07/2024 10:19 AM CDT) Pathologist [facility] Neutrophil abs 5.1 1.5 - 6.5 K/cumm Comment:Testing performed by : [address] [address] Imm gran abs 0.0 0.0 - 0.1 K/cumm [facility] Comment:Testing performed by : [address] [address] Lymphocyte abs 0.9 0.8 - 3.3 K/cumm [facility] Comment:Testing performed by : [address] [address] Monocyte abs 0.3 0.2 - 0.8 K/cumm [facility] Comment:Testing performed by : [address], [place]., [address] Eosinophil abs 0.1 0.0 - 0.5 K/cumm [facility] Comment:Testing performed by : [address] [address] Basophil abs 0.0 0.0 - 0.1 K/cumm [facility] Comment:Testing performed by : [address] [address] Neutrophil pct 79.1 % [facility] Comment: Interpretive Data Percent cell count reference ranges are not reported, since discordance with absolute values may lead to misinterpretation of CBC data. Current Interpretive Data was last revised on 2017. Testing performed by: [address] [address] Imm gran pct 0.3 % [facility] Comment: Interpretive Data Percent cell count reference ranges are not reported, since discordance with absolute values may lead to misinterpretation of CBC data. Current Interpretive Data was last revised on 2017. Testing performed by: [address] [address] Lymphocyte pct 13.6 % CERNER Comment: Interpretive Data Percent cell count reference ranges are not reported, since discordance with absolute values may lead to misinterpretation of CBC data. Current Interpretive Data was last revised on 2017. Testing performed by: [address] [address] Monocyte pct 5.0 % CERNER Comment: Interpretive Data Percent cell count reference ranges are not reported, since discordance with absolute values may lead to misinterpretation of CBC data. Current Interpretive Data was last revised on 2017. Testing performed by: [address] [address] Eosinophil pct 1.5 % LELAND Comment: Interpretive Data Percent cell count reference ranges are not reported, since discordance with absolute values may lead to misinterpretation of CBC data. Current Interpretive Data was last revised on 2017. Testing performed by: [address] [address] Basophil pct 0.5 % LELAND Comment: Interpretive Data Percent cell count reference ranges are not reported, since discordance with absolute values may lead to misinterpretation of CBC data. Current Interpretive Data was last revised on 2017. Testing performed by: [address] [address] Blood 05/07/2024 10:1 9 AM CDT 05/07/2024 10:23 AM CDT Jacquelin Rivero GAS OR PETROLEUM OPERATOR LAB BLOOD ORDERABLES Soco l Result Performing Organization Address City/[facility]/ZIP Co de Phone Number [place] [address] [facility] [place], [place] [id number] * (ABNORMAL) Iron profile w/ IBC (05/07/2024 10:19 AM CDT) Iron 22(L) 35 - 145 mcg/dL Comment:Testing performed by : [address] [address] TIBC 407(H) 250 - 400 mcg/dL LELAND Comment:Testing performed by : [address] [address] Transferrin saturation 5(L) 20 - 50 % LELAND Comment:Testing performed by : [address] [address] Blood 05/07/2024 10:1 9 AM CDT 05/07/2024 12:09 PM CDT Jacuqelin Rivero GAS OR PETROLEUM OPERATOR LAB BLOOD ORDERABLES Soco l Result Performing Organization Address City/[facility]/ZIP Co de Phone Number [facility] [address] [facility] [place] [address] * (ABNORMAL) CBC with auto differential (05/07/2024 10:19 AM CDT) WBC 6.5 3.8 - 9.9 K/cumm Comment:Testing performed by : [address] [address] Hgb 7.6(L) 11.9 - 15.5 g/dL LELAND Comment:Testing performed by : [address] [address] Hct 25.3(L) 35.6 - 45.5 % LELAND Comment:Testing performed by : [address] [address] Plt 288 150 - 400 K/cumm LELAND Comment:Testing performed by : [address] [address] MPV 10.7 9.1 - 12.3 fL LELAND Comment:Testing performed by : [address] [address] RBC 3.38(L) 3.90 - 5.20 M/cumm LELAND Comment:Testing performed by : [address] [address] MCV 74.9(L) 81.3 - 96.4 fL LELAND Comment:Testing performed by : [address] [address] MCH 22.5(L) 27.1 - 33.3 pg LELAND Comment:Testing performed by : [address] [address] MCHC 30.0(L) 32.3 - 35.7 g/dL LELAND Comment:Testing performed by : [address] [address] RDW CV 15.3(H) 11.1 - 14.9 % LELAND Comment:Testing performed by : [address], [address] RDW SD 41.7 35.7 - 48.1 fL LELAND Comment:Testing performed by : [address] [address] NRBC abs 0.00 0.00 - 0.01 K/cumm LELAND GARCIA Comment:Testing performed by : [address] [address] Blood 05/07/2024 10:1 9 AM CDT 05/07/2024 10:23 AM CDT Jacquelin Rivero GAS OR PETROLEUM OPERATOR LAB BLOOD ORDERABLES Soco l Result Performing Organization Address City/[facility] Co de Phone Number [address] [place] [place] [address] * (ABNORMAL) Ferritin (05/07/2024 10:19 AM CDT) Pathologist [facility] Ferritin 9(L) 15 - 150 ng/mL Comment:Testing performed by : [address] [address] Blood 05/07/2024 10:1 9 AM CDT 05/07/2024 12:09 PM CDT Jacquelin Rivero GAS OR PETROLEUM OPERATOR LAB BLOOD ORDERABLES Soco l Result Performing Organization Address [facility] Co de Phone Number [address] [address] * (ABNORMAL) Reticulocyte Count (05/07/2024 10:13 AM CDT) Retics, absolute 0.063 0.020 - 0.087 M/cumm Comment:Testing performed by : [address] [address] Retics 1.9 0.4 - 2.9 % LELAND GARCIA Comment:Testing performed by : [address] [address] Reticulocyte Hgb 16.9(L) 30.5 - 38.0 pg LELAND GARCIA Comment:Testing performed by : [facility], [address] [place] [address]., [address] Blood 05/07/2024 10:1 3 AM CDT 05/07/2024 11:16 AM CDT Cornelius Garcia DO LAB BLOOD ORDERABLES Final R esult LELAND [address] [facility] [place] [address] * Hepatitis panel, acute Blood (06/17/2023 2:12 PM TRUST ADMINISTRATOR) Hep A IgM NON-REACTI VE NON-REACT EMILE [facility] Comment: For additional information, please refer to http://Gemidis/faq/EOB271 (This link is being provided for informational/ educational purposes only.) HepBsAg NON-REACTI VE NON-REACT EMILE [facility] Comment: For additional information, please refer to http://Gemidis/faq/FEK018 (This link is being provided for informational/ educational purposes only.) Hep B core IgM NON-REACTI VE NON-REACT EMILE [facility] Comment: For additional information, please refer to http://Gemidis/faq/AJF708 (This link is being provided for informational/ educational purposes only.) Hep C Ab NON-REACTI VE NON-REACT EMILE [facility] Comment: HCV antibody was non-reactive. There is no laboratory evidence of HCV infection. In most cases, no further action is required. However, if recent HCV exposure is suspected, a test for HCV RNA (test code 13120) is suggested. For additional information please refer to http://Kuldat.Biomatrica/faq/BAI28h3 (This link is being provided for informational/ educational purposes only.) Blood 06/17/2023 2:12 PM TRUST ADMINISTRATOR 06/17/2023 2:13 PM TRUST ADMINISTRATOR Jing SALVADOR LAB MICROBIOLOGY - GE NERAL ORDERABLES Final Result [facility] [address] [id number] * HM PAP SMEAR WITH HPV (05/03/2021 3:03 PM CDT) Historical Provider HEALTH MAINTENANCE Edited Result - Final * HM COLONOSCOPY (10/12/2020) Historical Provider HEALTH MAINTENANCE Edited Result - Final from Last 3 Months or Most Recently Relevant to Health Maintenance Insurance Androcial CHOICE OBOOK ACCESS CHOICE ANTHEM ACCESS CHOICE ANTHEM ACCESS CHOICE Care Teams Desk Clerk Relationship Specialty Start Date End Date Starr Bran PA [address] [facility] [address] [place] [address] PCP - General Internal Medicine 12/30/18 Bibiana Schuler MD [address] [facility] [address] [place] [address] Consulting Physician Gastroenterology 05/11/21 Cornelius Garcia DO [address] [place] [address] MEDICAL ONCOLOGY, [facility] [place] [address] [place] [address] Medical Oncologist/Hematologis t Hematology and Oncology 09/26/21 Madhu Brito MD [address] [place] [address] Consulting Physician Rheumatology 05/22/23
--- OUTSIDE RECORDS SUMMARY | 2024-07-18 20:24 | XMS_ITS | Encounter Summary ---
Author Organization [facility] Address [address] [place] [address] Phone Care Team Providers Care Natural Gas Plant Technician Name Role Phone Starr Bran Primary Care Provider [phone] Bibiana Schuler MD Unavailable [phone] Cornelius Garcia DO Unavailable [phone] Madhu Brito MD Unavailable [phone] Reason for Referral * Neurology (Routine) - Closed Specialty Diagnoses / Procedures Referred By Hung gao Referred To Contact Diagnoses Paresthesia of hand, bilateral Procedures EMG/NCV - Jing Erwin PA [address] [place] [address] Phone: tel: fax: External Order Referral ID Status Reason Start Date Expiration Date Visits Re quested Visits Authorized [id number] Closed 06/15/2024 07/15/2025 1 1 E SCENE SPECIALIST Encounter Details Date Type Department Care Team (Late st Contact Info) Description 06/15/2024 10:30 AM CRIME SCENE SPECIALIST Office Visit [facility] [address] [place] [address] Jing Erwin PA [address] [place] [address] Systemic sclerosis (HCC) (Primary Dx); PHAN (dyspnea on exertion); Arthralgia of right hand; alf current use of therapeutic drug; Paresthesia of hand, bilateral Social History Tobacco Use Types Packs/Day Years Used Date Smoking Tobacco: Never Smokeless Tobacco: Never AUDIT-C Answer Date Recorded Q1: How often do you have a drink containing alc ohol? Monthly or less 05/19/2024 Q2: How many drinks containi ng alcohol do you have on a typical day when you are drinking? 1 or 2 05/19/2024 Q3: How often do you have si x or more drinks on one occasion? Never 05/19/2024 PHQ-2 Answer Date Recorded PHQ-2 Total Score 0 11/20/2023 Personal Safety Answer Date Recorded Have you ever been in or are you currently in a harmful physical or emotional relationship or is someone making you feel afraid or unsafe? Denies 05/22/2024 Comments Unknown Sex and Gender Information Value Date Recorded Sex Assigned at Not on file Legal Sex Female 10:31 AM CRIME SCENE SPECIALIST Gender Identity Female 02/02/2021 7:25 AM CDT Sexual Orientation Straight 02/02/2021 7: 25 AM CDT documented as of this encounter Last Filed Vital Signs Vital Sign Reading Time Taken Comments Blood Pressure 164/90 06/15/2024 10:24 AM CRIME SCENE SPECIALIST Pulse 78 06/15/2024 10:24 AM CRIME SCENE SPECIALIST Temperature - - Respiratory Rate - - Oxygen Saturation 99% 06/15/2024 10:24 AM CRIME SCENE SPECIALIST Inhaled Oxygen Concentration - - Weight 99.1 kg (218 lb 6.4 oz) 06/15/2024 10:24 AM CRIME SCENE SPECIALIST Height 160 cm (5' 3 ) 06/15/2024 10:24 AM CRIME SCENE SPECIALIST Body Mass Index 38.69 06/15/2024 10:24 AM CRIME SCENE SPECIALIST documented in this encounter Progress Notes * Jing Erwin PA - 06/15/2024 10:30 AM CST Images from the original note were not included. Subjective/Objective Patient ID: Viktoriya Bell is a 59 y.o. female. Chief Complaint SSc HPI Returns for routine follow up. Wen Miller in 01/2024 then SHASHANK was noted on labs. Given iron transfusion. Angela is on hold right now. 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 Having routine labs through thomas Garcia. Has heme appt on 06/18. Notes hands are falling asleep more since last visit. Notes this happens at night or when her hands are in certain positions such as elbows bent while reading. Denies hx of carpal tunnel surgery. Denies fevers, infections, rashes, mouth sores, cough, dyspnea, n/v. Joint pain today is . AM stiffness = few minutes Review of Systems Constitutional: Positive for fatigue. Negative for chills and fever. HENT: Negative for congestion and mouth sores. Respiratory: Negative for cough and shortness of breath. Cardiovascular: Negative for chest pain. Gastrointestinal: Negative for abdominal pain, diarrhea, nausea and vomiting. Musculoskeletal: Positive for arthralgias. Negative for myalgias. Skin: Negative for rash. Vitals: Vitals BP 164/90 Pulse 78 Ht 160 cm (5' 3 ) Wt 99.1 kg (218 lb 6.4 oz) SpO2 99% BMI 38.69 kg/m?? Body mass index is 38.69 kg/m??. Bold X is a current medication. Medication Taking/taken D/C or avoidance reason Hydroxychloroquine Methotrexate Leflunomide Azathioprine Sulfasalazine CellCept -started 06/2023 X Humira Enbrel Simponi Cimzia Simponi aria Remicade Cosentyx Taltz Orencia Stelara Tremfya Xeljanz Rinvoq Actemra Kevzara Olumiant Kineret Benlysta Rituxan Otezla NSAIDs Prednisone Physical Exam Constitutional: oriented to person, place, and time. appears well-developed and well-nourished. HENT: Head: Normocephalic. Eyes: Conjunctivae are normal. Pupils are equal and round. Pulmonary/Chest: Effort normal. Musculoskeletal: See cdai. Bilateral hands: generalized soft tissue puffiness, no synovitis. Neurological: alert and oriented to person, place, and time. Skin: Skin is warm and dry. No rash noted. No sclerodactyly or telangiectasias. Psychiatric: normal mood and affect. speech is normal and behavior is normal. Cognition and memory are normal. Patient Global: Provider Global: CDAI: 2 In remission: 0-3 Low: 4-10 Moderate: 11-22 High: 23 or > Labs Lab Results Component Value Date WBC 4.3 06/11/2024 HGB 9.9 (L) 06/11/2024 HCT 32.5 (L) 06/11/2024 MCV 76.3 (L) 06/11/2024 Lab Results Component Value Date GLUCOSE 100 (H) 03/09/2024 CALCIUM 9.5 03/09/2024 SODIUM 142 03/09/2024 POTASSIUM 4.1 03/09/2024 CO2 24 03/09/2024 CHLORIDE 107 03/09/2024 BUNSER 14 03/09/2024 CREATININE 0.68 03/09/2024 Lab Results Component Value Date ALT 11 03/09/2024 AST 12 03/09/2024 ALKPHOS 73 03/09/2024 BILITOT 0.3 03/09/2024 Lab Results Component Value Date SEDRATE 9 03/09/2024 Lab Results Component Value Date CRP <3.0 03/09/2024 LABS: 05/18/23: Negative LAC, negative ALEXA, CRP 0.29mg/dL, ESR 6, Hep panel negative AVISE 05/18/23: +AMINA 1:2560 centromere, CENP >240, RF IgM 20, normal C3/4 04/2023: RBC 3.58, Hgb 10.5, Hct 31.7, B12 479, TIBC 303, UIBC 264, iron 39, iron sat 13 % (L), HgA1c 4.9%, lipid panel nl, CMP nl, TSH 1.70, +AMINA >1:1280 centromere 02/2023: +AMINA, dsDNA <1, STARTER MECHANIC <0.2, SM <0.2, SS-A <0.2, SS-B <0.2 IMAGING: US right hand/wrist (12/18/23):Grade 1 power doppler in the wrist and 2nd PIP joint. Marked synovialthickening in the 2nd and 3rd PIP joints. A mildly enlarged median nerve at 0.13 cm2 is identified. PFT 08/2023: FEV1 88%, FVC 92%, FEV1/FVC 0.75, DLCO 67% TTE 08/2023: Interpretation Summary The left ventricle is normal in size. There is normal left ventricular wall thickness. Left ventricular systolic function is normal. Ejection Fraction = 55-60%. The left ventricular wall motion is normal. The right ventricle is normal size. There is normal right ventricular wall thickness. The right ventricular systolic function is normal. Grade I diastolic dysfunction, (abnormal relaxation pattern) US right hand/wrist (08/01/22): Grade 2 power doppler in the radial scaphoid joint. Grade 1 power doppler in the wrist. Small grade 1 effusion in the volar 5th PIP joint. Moderate synovial thickening in the 2nd and 3rd PIP joints. Cortical defect in the 5th metacarpal head without surrounding inflammatory signals. CXR 05/2023: unremarkable EGD 11/2022: Impression: - Normal esophagus. - Gastric antral vascular ectasia without bleeding. 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 - Normal examined duodenum. - No specimens collected. CTA chest 01/2021: resolution of previously visualized PE. 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 US venous duplex BLE 10/2020: RLE DVT CTA chest 10/2020: extensive bilateral pulmonary embolic burden, with tiny subtle component. New, small foci of consolidation within the right lower lobe, which may reflex pulmonary infarcts. Trace right pleural effusion. CXR 10/2020: unremarkable Assessment/Plan Diagnoses and all orders for this visit: Systemic sclerosis (HCC) (Primary) Assessment & Plan: 59-year-old female with PMHx of RLS, anemia [...] also noted on TTE in 2020 however thereare no signs to suggest PAH. PFT showed [...] up in 3 months. Sooner if needed. Orders: - Comprehensive metabolic panel; Future - Erythrocyte sedimentation rate; Future - CRP (acute phase); Future PHAN (dyspnea on exertion) Assessment & Plan: CXR unremarkable. Baseline PFT and TTE are unremarkable for signs of PAH. Grade 1 diastolic dysfunction noted on TTE but this was also seen on past TTE in 2020. PFT showed only mildly reduced diffusecapacity. Continues to note PHAN so will monitor symptoms. Should this progress, consider repeating PFT. Arthralgia of right hand Assessment & Plan: Elevated RF (20) on AVISE. C/o pain and AM swelling/stiffness in the hands (R>L) that appears tohave progressed so repeated R hand/wrist US (11/2023) that did not show any signs to suggest an inflammatory arthritis. 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 Recommend wearing wristsplints at night. Orders: - EMG/NCV -; Future Jing Erwin PA-C Cosigned by Madhu Brito MD at 06/15/2024 4:54 PM CRIME SCENE SPECIALIST E SCENE SPECIALIST E SCENE SPECIALIST documented in this encounter Miscellaneous Notes * Assessment & Plan Note - Jing Erwin PA - 06/15/2024 10:52 AM CSTAssociated Problem(s): Paresthesia of hand, bilateral Get bilateral UE EMG/NCS to evaluate for carpal vs cubital tunnel syndrome. Recommend wearing wristsplints at night. E SCENE SPECIALIST * Assessment & Plan Note - Jing Erwin PA - 06/15/2024 10:12 AM CSTAssociated Problem(s): Systemic sclerosis (HCC) 59-year-old female with PMHx of RLS, anemia [...] also noted on TTE in 2020 however thereare no signs to suggest PAH. PFT showed [...] up in 3 months. Sooner if needed. E SCENE SPECIALIST * Assessment & Plan Note - Jing Erwin PA - 06/15/2024 10:09 AM CSTAssociated Problem(s): Arthralgia Elevated RF (20) on AVISE. C/o pain and AM swelling/stiffness in the hands (R>L) that appears tohave progressed so repeated R hand/wrist US (11/2023) that did not show any signs to suggest an inflammatory arthritis. E SCENE SPECIALIST * Assessment & Plan Note - Jing Erwin PA - 06/15/2024 10:09 AM CSTAssociated Problem(s): PHAN (dyspnea on exertion) CXR unremarkable. Baseline PFT and TTE are unremarkable for signs of PAH. Grade 1 diastolic dysfunction noted on TTE but this was also seen on past TTE in 2020. PFT showed only mildly reduced diffusecapacity. Continues to note PHAN so will monitor symptoms. Should this progress, consider repeating PFT. 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 drug CRP (ACUTE PHASE) Routine 06/15/2024 10: 47 AM CRIME SCENE SPECIALIST Systemic sclerosis (HCC) alf current use of therapeutic drug COMPREHENSIVE METABOLIC PANEL Routine 06/15/2024 10:47 AM CRIME SCENE SPECIALIST Systemic sclerosis (HCC) alf current use of therapeutic drug documented in this encounter Results * CRP (acute phase) (06/15/2024 10:47 AM CRIME SCENE SPECIALIST) C-RP <3.0 <8.0 mg/L [facility] Blood 06/15/2024 10:4 7 AM CRIME SCENE SPECIALIST 06/15/2024 10:47 AM CRIME SCENE SPECIALIST Jing SALVADOR LAB BLOOD ORDERABLES Final Result [facility] [address] [place] [id number] * Erythrocyte sedimentation rate (06/15/2024 10:47 AM CRIME SCENE SPECIALIST) Erythrocyte sedimentation rate 2 < OR = 30 mm/h [facility] Blood 06/15/2024 10:4 7 AM CRIME SCENE SPECIALIST 06/15/2024 10:47 AM CRIME SCENE SPECIALIST us Jing SALVADOR LAB BLOOD ORDERABLES Final Result [facility] [address] [place] [id number] * Comprehensive metabolic panel (06/15/2024 10:47 AM CRIME SCENE SPECIALIST) Pathologist [facility] Glucose 91 65 - 99 mg/dL [facility] Comment: ? Fasting reference interval BUN 13 7 - 25 mg/dL [facility] Creatinine 0.56 0.50 - 1.05 mg/dL [facility] eGFR 104 > OR = 60 mL/min/1.7 3m2 [facility] BUN/creat ratio SEE NOTE: 6 (calc) [facility] Comment: ?? 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 Paresthesia of hand, bilateral documented in this encounter Care Teams Natural Gas Plant Technician Relationship Specialty Start Date End Date Starr Bran PA [address] [place] [address] PCP - General Internal Medicine 12/30/18 Bibiana Schuler MD [address] [place] [address] Consulting Physician Gastroenterology 05/11/21 Cornelius Garcia DO [address] [place] [address] MEDICAL ONCOLOGY, [address] [place] [address] Medical Oncologist/Hematologis t Hematology and Oncology 09/26/21 Madhu Brito MD [address] [place] [address] Consulting Physician Rheumatology 05/22/23 documented as of this encounter
--- OUTSIDE RECORDS SUMMARY | 2024-07-18 20:24 | XMS_ITS | Encounter Summary ---
Author Organization [facility] Healthcare Address [address] [place] [address] Care Team Providers Care Resource Manager Name Role Phone Starr Bran Primary Care Provider [phone] Bibiana Schuler MD Unavailable [phone] Cornelius Garcia DO Unavailable [phone] Madhu Brito MD Unavailable [phone] Encounter Details Date Type Department Care Team (Late st Contact Info) Description 05/28/2024 7:45 AM CDT Lab [facility] at [address] [id number] Iron deficiency anemia due to chronic blood loss Social History Tobacco Use Types Packs/Day Years [...] on file Legal Sex Female 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 Gender Identity Female 02/02/2021 7:25 AM CDT Sexual Orientation Straight 02/02/2021 7: 25 AM CDT documented as of this encounter Plan of Treatment Not on file documented as of this encounter Procedures Procedure Name Priority Date/Time Associated Diagnosis Comments DIFFERENTIAL AUTO Routine 05/28/2024 8:0 6 AM CDT Iron deficiency anemia due to chronic blood loss CBC WITH AUTO DIFFERENTIAL Routine 05/28/2024 8:06 AM CDT Iron deficiency anemia due to chronic blood loss documented in this encounter Results * Differential, auto (05/28/2024 8:06 AM CDT) Neutrophil abs 3.2 1.5 - 6.5 K/cumm Comment:Testing performed by : [address] [address] Imm gran abs 0.0 0.0 - 0.1 K/cumm [facility] Comment:Testing performed by : [address] [address] Lymphocyte abs 0.8 0.8 - 3.3 K/cumm [facility] Comment:Testing performed by : [address] [address] Monocyte abs 0.4 0.2 - 0.8 K/cumm [facility] Comment:Testing performed by : [address] [address] Eosinophil abs 0.1 0.0 - 0.5 K/cumm [facility] Comment:Testing performed by : [address] [address] Basophil abs 0.0 0.0 - 0.1 K/cumm [facility] Comment:Testing performed by : [address] [address] Neutrophil pct 71.4 % [facility] Comment: Interpretive Data Percent cell count reference ranges are not reported, since discordance with absolute values may lead to misinterpretation of CBC data. Current Interpretive Data was last revised on 2017. Testing performed by: [address] [address] Imm gran pct 0.2 % [facility] Comment: Interpretive Data Percent cell count reference ranges are not reported, since discordance with absolute values may lead to misinterpretation of CBC data. Current Interpretive Data was last revised on 2017. Testing performed by: [address] [address] Lymphocyte pct 17.2 % [facility] Comment: Interpretive Data Percent cell count reference ranges are not reported, since discordance with absolute values may lead to misinterpretation of CBC data. Current Interpretive Data was last revised on 2017. Testing performed by: [address] [address] Monocyte pct 7.9 % [facility] Comment: Interpretive Data Percent cell count reference ranges are not reported, since discordance with absolute values may lead to misinterpretation of CBC data. Current Interpretive Data was last revised on 2017. Testing performed by: [address] [address] Eosinophil pct 2.9 % [facility] Comment: Interpretive Data Percent cell count reference ranges are not reported, since discordance with absolute values may lead to misinterpretation of CBC data. Current Interpretive Data was last revised on 2017. Testing performed by: [address] [address] Basophil pct 0.4 % [facility] Comment: Interpretive Data Percent cell count reference ranges are not reported, since discordance with absolute values may lead to misinterpretation of CBC data. Current Interpretive Data was last revised on 2017. Testing performed by: [address] [address] Blood 05/28/2024 8:06 AM CDT 05/28/2024 8:14 AM CDT us Cornelius Garcia DO LAB BLOOD ORDERABLES Final R esult [facility] [address] [facility] Department [place] [address] * (ABNORMAL) CBC with auto differential (05/28/2024 8:06 AM CDT) [facility] WBC 4.5 3.8 - 9.9 K/cumm Comment:Testing performed by : [address] [address] Hgb 9.6(L) 11.9 - 15.5 g/dL [facility] Comment:Testing performed by : [address], [address] Hct 32.0(L) 35.6 - 45.5 % [facility] Comment:Testing performed by : [address] [address] Plt 252 150 - 400 K/cumm [facility] Comment:Testing performed by : [address] [address] MPV 10.0 9.1 - 12.3 fL [facility] Comment:Testing performed by : [address], [address] RBC 4.11 3.90 - 5.20 M/cumm [facility] Comment:Testing performed by : [address] [address] MCV 77.9(L) 81.3 - 96.4 fL [facility] Comment:Testing performed by : [address] [address] MCH 23.4(L) 27.1 - 33.3 pg [facility] Comment:Testing performed by : [address], [address] MCHC 30.0(L) 32.3 - 35.7 g/dL [facility] Comment:Testing performed by : [address], [address] RDW CV 20.3(H) 11.1 - 14.9 % [facility] Comment:Testing performed by : [address] [address] RDW SD 54.3(H) 35.7 - 48.1 fL [facility] Comment:Testing performed by : [address], [address] NRBC abs 0.00 0.00 - 0.01 K/cumm [facility] Comment:Testing performed by : [facility], [address] [facility], [place]., [address] Blood 05/28/2024 8:06 AM CDT 05/28/2024 8:14 AM CDT Cornelius Garcia DO LAB BLOOD ORDERABLES Final R esult [facility] [address] [facility] Department [place] [address] documented in this encounter Visit Diagnoses Diagnosis Iron deficiency anemia due to chronic blood loss Iron deficiency anemia secondary to blood loss (chronic) documented in this encounter Orders Appointment Requests Count Last Ordered Date Fi rst Ordered Date ONCBCN LAB APPOINTMENT 1 05/28/2024 documented in this encounter Care Teams Resource Manager Relationship Specialty Start Date End Date Starr Bran PA [address] [place] [address] PCP - General Internal Medicine 12/30/18 Bibiana Schuler MD [address] [place] [address] Consulting Physician Gastroenterology 05/11/21 Cornelius Garcia DO [address] [place] [address] MEDICAL ONCOLOGY, [address] [place] [address] Medical Oncologist/Hematologis t Hematology and Oncology 09/26/21 Madhu Brito MD [facility] [place] [address] Consulting Physician Rheumatology 05/22/23 documented as of this encounter
--- OUTSIDE RECORDS SUMMARY | 2024-07-18 20:24 | XMS_ITS | Encounter Summary ---
Author Organization [facility] Healthcare Address [address] [place] [address] Care Team Providers Care Bun Panner Name Role Phone Starr Bran Primary Care Provider [phone] Bibiana Schuler MD Unavailable [phone] Cornelius Garcia DO Unavailable [phone] Madhu Brito MD Unavailable Reason for Visit * Neurology (Routine) - Closed Specialty Diagnoses / Procedures Referred By Hung gao Referred To Contact Diagnoses Paresthesia of hand, bilateral Procedures EMG/NCV - Jing Erwin PA [address] [place] [address] Phone: tel: fax: External Order Referral ID Status Reason Start Date Expiration Date Visits Re quested Visits Authorized [id number] Closed 06/15/2024 07/15/2025 1 1 Encounter Details Date Type Department Care Team (Late st Contact Info) Description 07/13/2024 9:30 AM EROSION CONTROL COORDINATOR Therapy [facility] Physical Therapy [address] [place] [address] Paresthesia of hand, bilateral Social History Tobacco [...] on file Legal Sex Female 10:31 AM EROSION CONTROL COORDINATOR Gender Identity Female 02/02/2021 7:25 AM CDT Sexual Orientation Straight 02/02/2021 7: 25 AM CDT documented as of this encounter Progress Notes * Raji Becker MD - 07/13/2024 9:30 AM CST Scanned reports and notes from EMG/NCV test can be found in the Media section of the patient's chart. ION CONTROL COORDINATOR documented in this encounter Plan of Treatment Not on file documented as of this encounter Visit Diagnoses Diagnosis Paresthesia of hand, bilateral documented in this encounter Orders Imaging Orders Without Results Count Last Order ed Date First Ordered Date EMG/NCV 1 07/13/2024 documented in this encounter Care Teams Bun Panner Relationship Specialty Start Date End Date Starr Bran PA [address] [place] [address] PCP - General Internal Medicine 12/30/18 Bibiana Schuler MD [address] [place] [address] Consulting Physician Gastroenterology 05/11/21 Cornelius Garcia DO [address] [place] [address] MEDICAL ONCOLOGY, [address] [place] [address] Medical Oncologist/Hematologis t Hematology and Oncology 09/26/21 Madhu Brito MD [address] [place] [address] Consulting Physician Rheumatology 05/22/23 documented as of this encounter
--- OUTSIDE RECORDS SUMMARY | 2024-07-18 20:24 | XMS_ITS | Continuity of Care Document ---
Author Organization [facility] [place] Address [address] [place] [address] [address] [place] [address] Phone Care Team Providers Care Mammographer Name Role Phone Moises Frazier Unavailable Unavailable Procedures Procedure Date Therapeutic Activities Neuromuscular Re-Ed Therapeutic Exercise Therapeutic Activities Neuromuscular Re-Ed Therapeutic Activities Therapeutic Exercise Neuromuscular Re-Ed Therapeutic Exercise Therapeutic Activities Neuromuscular Re-Ed Neuromuscular Re-Ed Therapeutic Activities Therapeutic Exercise Therapeutic Activities Neuromuscular Re-Ed Therapeutic Exercise Therapeutic Activities Neuromuscular Re-Ed Therapeutic Exercise Neuromuscular Re-Ed Therapeutic Activities Therapeutic Exercise Therapeutic Activities Neuromuscular Re-Ed Therapeutic Exercise Neuromuscular Re-Ed Therapeutic Activities Therapeutic Exercise Hot or Cold Pack Therapeutic Activities Neuromuscular Re-Ed Therapeutic Exercise Hot or Cold Pack PT Evaluation Moderate Complexity Therapeutic Exercise Neuromuscular Re-Ed Electrical Stimulation Advance Directives Directive Yes / No Effective Date File Name No Information Encounters Encounter Description Practice Location Reason(s) For Visit Diagnoses Date Provider Providers Copied on Encounter [facility] [address] [facility] [address], [place], [place], [id number], tel:[phone] [place] No Information 1 Jalen De Leon. [address] [place] [address], [address], [place], [place], [facility], [place]. tel: [phone] Referring Provider: Starr Bran, [address] [place] [address] [address], [place], [address]. tel:[phone] [facility] [address] [facility] [address], [place], [place], [id number], tel:[phone] [place] No Information 1 Jalen De Leon. [address] [place] [address], [address], [place], [place], [facility], [place]. [phone] Referring Provider: Starr Bran [facility] [facility] [address], [place], [address]. tel:[phone] [facility] [address] [facility] [address], [place], [place], [id number], tel:[phone] [place] No Information 1 Michelle Santiago . Referring Provider: Starr Bran, [address], [place], [address]. tel:[phone] [facility] [address] [facility] [address], [place], [place], [id number], tel:[phone] [place] No Information 1 Jalen De Leon. [address] [place] [address], [address], [place], [facility], . tel: [phone] Referring Provider: Starr Bran [address] [facility] [address], [place], [address]. tel:[phone] [address] [address], [place], [place], [id number], tel:[phone] [place] No Information 1 Muehl Moises. [address] [place] [address], [address], [place], [facility], . tel: [phone] Referring Provider: Starr Bran, [address] [place] [address] [address], [place], [address]. tel:[phone], [place], [place], [id number], [place] tel:[phone] [place] No Information 1 Muehl Moises. [address] [place] [address], [address], [place], [facility], . tel: [phone] Referring Provider: Starr Bran, [address] [place] [address] [address], [place], [address]. tel:[phone], [id number], [place] tel:[phone] [place] No Information 1 Muehl Moises. [address] [place] [address], [address], [place], [facility], . tel: [phone] Referring Provider: Starr Bran, [address] [place] [address] [address], [place], [address]. tel:[phone], [place], [id number], [place] tel:[phone] [place] No Information 1 Muehl Moises. [address] [place] [address], [address], [place], [facility], . tel: [phone] Referring Provider: Starr Bran [address] [place] [address] Road [address], [place], [address]. tel:[phone], [place], [place], [id number], tel:[phone] [place] No Information 3 0 1 Jalen De Leon. [address] [place] [address], [address], [place], [facility], . tel: [phone] Referring Provider: Starr Bran, [address] [place] [address] Road [address], [place], [address]. tel:[phone] [address], [place], [place], [id number], tel:[phone] [place] No Information Oct-2 1 Jalen De Leon. [address] [place] [address], [address], [place], [facility], . tel: [phone] Referring Provider: Starr Bran, [address] [place] [address] [address], [place], [address]. tel:[phone] [address], [place], [place], [id number], [place] tel:[phone] [place] No Information 2 1 Jalen De Leon. [address] [place] [address], [address], [place], [facility], [place]. tel: [phone] Referring Provider: Starr Bran, [address] [place] [address] Road [address], [place], [address]. tel:[phone] [address], [place], [place], [address], [place] tel:[phone] [place] No Information Oct-2 1 Jalen De Leon. [address] [place] [address], [address], [place], [facility], . tel: [phone] Referring Provider: Starr Bran, [facility] [facility] [facility] [address], [place], [address]. tel:[phone] Family History Family Member Type Diagnosis Age At Onset No Information Payers Payer name Insurance type Covered green party ID Karen butler(s) [facility] [id number] Social History Type Description Quantity Date Captured Comments Sex Female Smoking Status No Information Chief Complaint And Reason For Visit No Information Reason For Referral Reason For Referral No Information History Of Present Illness Encounter Date Complaint History Of Prese nt Illness No Information Functional Status Date Functional Assessmen t No Information Instructions Date Instruction Additional Infor mation Dietary needs education Related to Overweight Prescribed activity/exercise edu cation Related to Overweight Assessments Type Assessment Date No Information Patient Care Teams Name Effective Dates (start - stop) Status Members No Information
--- OUTSIDE RECORDS SUMMARY | 2024-07-18 20:24 | XMS_ITS | Encounter Summary ---
Author Organization [facility] Healthcare Address [address] [place] [address] Care Team Providers Care Supervisor Cook Room Name Role Phone Starr Bran Primary Care Provider [phone] Bibiana Schuler MD Unavailable [phone] Cornelius Garcia DO Unavailable [phone] Madhu Brito MD Unavailable [phone] Encounter Details Date Type Department Care Team (Late st Contact Info) Description 06/11/2024 8:45 AM PROFESSOR OF ENGLISH Lab [facility] at [address] [id number] Iron deficiency anemia due to chronic blood [...] on file Legal Sex Female 10:31 AM PROFESSOR OF ENGLISH Gender Identity Female 02/02/2021 7:25 AM CDT Sexual Orientation Straight 02/02/2021 7: 25 AM CDT documented as of this encounter Plan of Treatment Not on file documented as of this encounter Procedures Procedure Name Priority Date/Time Associated Diagnosis Comments DIFFERENTIAL AUTO Routine 06/11/2024 8:5 3 AM PROFESSOR OF ENGLISH Iron deficiency anemia due to chronic blood loss CBC WITH AUTO DIFFERENTIAL Routine 06/11/2024 8:53 AM PROFESSOR OF ENGLISH Iron deficiency anemia due to chronic blood loss documented in this encounter Results * Differential, auto (06/11/2024 8:53 AM PROFESSOR OF ENGLISH) Neutrophil abs 3.0 1.5 - 6.5 K/cumm Comment:Testing performed by : [address] [address] Imm gran abs 0.0 0.0 - 0.1 K/cumm [place] Comment:Testing performed by : [address] [address] Lymphocyte abs 0.8 0.8 - 3.3 K/cumm [place] Comment:Testing performed by : [address] [address] Monocyte abs 0.3 0.2 - 0.8 K/cumm [place] Comment:Testing performed by : [address] [address] Eosinophil abs 0.2 0.0 - 0.5 K/cumm [place] Comment:Testing performed by : [address] [address] Basophil abs 0.0 0.0 - 0.1 K/cumm [place] Comment:Testing performed by : [address] [address] Neutrophil pct 68.9 % [place] Comment: Interpretive Data Percent cell count reference ranges are not reported, since discordance with absolute values may lead to misinterpretation of CBC data. Current Interpretive Data was last revised on 2017. Testing performed by: [address] [address] Imm gran pct 0.5 % [facility] Comment: Interpretive Data Percent cell count reference ranges are not reported, since discordance with absolute values may lead to misinterpretation of CBC data. Current Interpretive Data was last revised on 2017. Testing performed by: [address] [address] Lymphocyte pct 18.9 % [facility] Comment: Interpretive Data Percent cell count reference ranges are not reported, since discordance with absolute values may lead to misinterpretation of CBC data. Current Interpretive Data was last revised on 2017. Testing performed by: [address] [address] Monocyte pct 7.5 % [facility] Comment: Interpretive Data Percent cell count reference ranges are not reported, since discordance with absolute values may lead to misinterpretation of CBC data. Current Interpretive Data was last revised on 2017. Testing performed by: [address] [address] Eosinophil pct 3.7 % [facility] Comment: Interpretive Data Percent cell count reference ranges are not reported, since discordance with absolute values may lead to misinterpretation of CBC data. Current Interpretive Data was last revised on 2017. Testing performed by: [address] [address] Basophil pct 0.5 % [facility] Comment: Interpretive Data Percent cell count reference ranges are not reported, since discordance with absolute values may lead to misinterpretation of CBC data. Current Interpretive Data was last revised on 2017. Testing performed by: [address] [address] Blood 06/11/2024 8:53 AM PROFESSOR OF ENGLISH 06/11/2024 8:54 AM PROFESSOR OF ENGLISH us Cornelius Garcia DO LAB BLOOD ORDERABLES Final R esult [place] [address] [facility] Department of Laboratories [place], [place] [id number] * (ABNORMAL) CBC with auto differential (06/11/2024 8:53 AM PROFESSOR OF ENGLISH) [facility] WBC 4.3 3.8 - 9.9 K/cumm Comment:Testing performed by : [address] [address] Hgb 9.9(L) 11.9 - 15.5 g/dL [place] Comment:Testing performed by : [address] [address] Hct 32.5(L) 35.6 - 45.5 % [place] Comment:Testing performed by : [address] [address] Plt 254 150 - 400 K/cumm [place] Comment:Testing performed by : [address], [address] MPV 9.5 9.1 - 12.3 fL [place] Comment:Testing performed by : [address], [address] RBC 4.26 3.90 - 5.20 M/cumm [place] Comment:Testing performed by : [address] [address] MCV 76.3(L) 81.3 - 96.4 fL [place] Comment:Testing performed by : [address], [address] MCH 23.2(L) 27.1 - 33.3 pg [place] Comment:Testing performed by : [address], [address] MCHC 30.5(L) 32.3 - 35.7 g/dL [place] Comment:Testing performed by : [address], [address] RDW CV 19.1(H) 11.1 - 14.9 % [place] Comment:Testing performed by : [address], [address] RDW SD 53.1(H) 35.7 - 48.1 fL [place] Comment:Testing performed by : [address], [address] NRBC abs 0.00 0.00 - 0.01 K/cumm [place] GARCIA Comment:Testing performed by : [facility], [address] [facility], [place]., [address] Blood 06/11/2024 8:53 AM PROFESSOR OF ENGLISH 06/11/2024 8:54 AM PROFESSOR OF ENGLISH Cornelius Garcia DO LAB BLOOD ORDERABLES Final R esult [place] [address] [facility] Department [place] [address] documented in this encounter Visit Diagnoses Diagnosis Iron deficiency anemia due to chronic blood loss Iron deficiency anemia secondary to blood loss (chronic) documented in this encounter Orders Appointment Requests Count Last Ordered Date Fi rst Ordered Date ONCBCN LAB APPOINTMENT 1 06/11/2024 documented in this encounter Care Teams Supervisor Cook Room Relationship Specialty Start Date End Date Starr Bran PA [address] [place] [address] PCP - General Internal Medicine 12/30/18 Bibiana Schuler MD [address] [place] [address] Consulting Physician Gastroenterology 05/11/21 Cornelius Garcia DO [facility] MEDICAL ONCOLOGY, [address] [place] [address] Medical Oncologist/Hematologis t Hematology and Oncology 09/26/21 Madhu Brito MD [address] [place] [address] Consulting Physician Rheumatology 05/22/23 documented as of this encounter
--- OUTSIDE RECORDS SUMMARY | 2024-07-18 20:24 | XMS_ITS | Encounter Summary ---
Author Organization [facility] Healthcare Address [address] [place] [address] Care Team Providers Care Green Prize Packer Name Role Phone Starr Bran Primary Care Provider [phone] Bibiana Schuler MD Unavailable [phone] Cornelius Garcia DO Unavailable [phone] Madhu Brito MD Unavailable [phone] Encounter Details Date Type Department Care Team (Late st Contact Info) Description 07/13/2024 Orders Only [facility] Medical Group Family Medicine [address] [facility] [address] [place] [address] Provider, MD Saloni [address] [place] [address] Social History Tobacco Use Types Packs/Day Years [...] on file Legal Sex Female 10:31 AM SALES AND SERVICE OFFICER Gender Identity Female 02/02/2021 7:25 AM CDT Sexual Orientation Straight 02/02/2021 7: 25 AM CDT documented as of this encounter Plan of Treatment Not on file documented as of this encounter Procedures Procedure Name Priority Date/Time Associated Diagnosis Comments MAMMOGRAPHY Routine 07/13/2024 12:21 PM SALES AND SERVICE OFFICER documented in this encounter Results * HM MAMMOGRAPHY (07/13/2024 12:21 PM SALES AND SERVICE OFFICER) Mammography Normal us Historical Provider HEALTH MAINTENANCE Edited Result - Final documented in this encounter Visit Diagnoses Not on filedocumented in this encounter Care Teams Green Prize Packer Relationship Specialty Start Date End Date Starr Bran PA [address] [place] [address] PCP - General Internal Medicine 12/30/18 Bibiana Schuler MD [address] [place] [address] Consulting Physician Gastroenterology 05/11/21 Cornelius Garcia DO [address] [place] [address] MEDICAL ONCOLOGY, [address] [place] [address] Medical Oncologist/Hematologis t Hematology and Oncology 09/26/21 Madhu Briot MD [facility] [place] [address] Consulting Physician Rheumatology 05/22/23 documented as of this encounter
--- OUTSIDE RECORDS SUMMARY | 2024-07-18 20:24 | XMS_ITS | Encounter Summary ---
Author Organization [facility] Healthcare Address [address] [place] [address] Care Team Providers Care Back Sewer Name Role Phone Starr Bran Primary Care Provider [phone] Bibiana Schuler MD Unavailable [phone] Cornelius Garcia DO Unavailable [phone] Madhu Brito MD Unavailable [phone] Encounter Details Date Type Department Care Team (Late st Contact Info) Description 05/26/2024 Orders Only [facility] Medical Group Family Medicine [address] [facility] [address] [place] [address] Starr Bran PA [address] [place] [address] Essential hypertension (Primary Dx); B12 deficiency; Hyperglycemia; Vitamin D deficiency; BMI 36.0-36.9,adult; Other fatigue; Hyperlipidemia, unspecified hyperlipidemia type Social History Tobacco Use Types Packs/Day Years [...] on file Legal Sex Female 10:31 AM STONEWORKING BELT SANDER Gender Identity Female 02/02/2021 7:25 AM CDT Sexual Orientation Straight 02/02/2021 7: 25 AM CDT documented as of this encounter Progress Notes * Tuyet Kay LPN - 05/26/2024 8:00 AM CDT Labs placed for upcoming annual exam documented in this encounter Plan of Treatment Not on file documented as of this encounter Procedures Procedure Name Priority Date/Time Associated Diagnosis Comments VITAMIN B12 Routine 06/29/2024 7:30 AM STONEWORKING BELT SANDER B12 deficiency TSH Routine 06/29/2024 7:29 AM STONEWORKING BELT SANDER BMI 36.0-36.9,adult Other fatigue HEMOGLOBIN A1C Routine 06/29/2024 7:29 AM STONEWORKING BELT SANDER Hyperglycemia LIPID PANEL Routine 06/29/2024 7:29 AM STONEWORKING BELT SANDER Hyperlipidemia, unspecified hyperlipidemia type COMPREHENSIVE METABOLIC PANEL Routine 06/29/2024 7:29 AM STONEWORKING BELT SANDER Essential hypertension documented in this encounter Results * Vitamin B12 (06/29/2024 7:30 AM STONEWORKING BELT SANDER) Vitamin B12 375 232 - 1,245 pg/mL [facility] - 01 Blood 06/29/2024 7:30 AM STONEWORKING BELT SANDER 06/29/2024 Narrative [facility] - 06/30/2024 9:37 AM STONEWORKING BELT SANDER Performed at: ??01 - [facility] [address] ??[id number] Software Applications Architect: Parveen Lofton PhD, Phone: ??[phone] Starr SALVADOR LAB BLOOD ORDERABLES Final Result [facility] - 01 * TSH (06/29/2024 7:29 AM STONEWORKING BELT SANDER) TSH 1.780 0.450 - 4.500 uIU/mL [facility] - 01 Blood 06/29/2024 7:29 AM STONEWORKING BELT SANDER 06/29/2024 Narrative [facility] - 06/30/2024 9:37 AM STONEWORKING BELT SANDER Performed at: ??01 - [facility] ??[id number] Software Applications Architect: Parveen Lofton PhD, Phone: ??[phone] Starr SALVADOR LAB BLOOD ORDERABLES Final Result Performing Organization Address [facility] Co de Phone Number [facility] - 01 * Lipid panel (06/29/2024 7:29 AM STONEWORKING BELT SANDER) Cholesterol 143 100 - 199 mg/dL [facility] - 01 Triglycerides 129 0 - 149 mg/dL [facility] - 01 HDL Cholesterol 48 >39 mg/dL [facility] - 01 VLDL 23 5 - 40 mg/dL [facility] - 01 LDL, calculated 72 0 - 99 mg/dL [facility] - 01 Blood 06/29/2024 7:29 AM STONEWORKING BELT SANDER 06/29/2024 Narrative [facility] - 06/30/2024 7:38 AM STONEWORKING BELT SANDER Performed at: ?? - [facility] ??[id number] Software Applications Architect: Parveen Lofton PhD, Phone: ??[phone] Starr SALVADOR LAB BLOOD ORDERABLES Final Result Performing Organization Address City/[facility] Co de Phone Number [facility] - 01 * Hemoglobin A1c (06/29/2024 7:29 AM STONEWORKING BELT SANDER) Pathologist [facility] Hgb A1C 5.3 4.8 - 5.6 % [facility] - 01 Comment: ? Prediabetes: 5.7 - 6.4 ? Diabetes: >6.4 ? Glycemic control for adults with diabetes: <7.0 Blood 06/29/2024 7:29 AM STONEWORKING BELT SANDER 06/29/2024 Narrative [facility] - 06/30/2024 7:38 AM STONEWORKING BELT SANDER Performed at: ??01 - [facility] [address] ??[id number] Software Applications Architect: Parveen Lofton PhD, Phone: ??[phone] Starr SALVADOR LAB BLOOD ORDERABLES Final Result [facility] - 01 * (ABNORMAL) Comprehensive metabolic panel (06/29/2024 7:29 AM STONEWORKING BELT SANDER) Pathologist [facility] Glucose 104(H) 70 - 99 mg/dL [facility] [...] [facility] - 01 Blood 06/29/2024 7:29 AM STONEWORKING BELT SANDER 06/29/2024 Narrative [facility] - 06/30/2024 7:38 AM STONEWORKING BELT SANDER Performed at: ??01 - [facility] [address] ??[id number] Software Applications Architect: Parveen Lofton PhD, Phone: ??[phone] Starr SALVADOR LAB BLOOD ORDERABLES Final Result [facility] - 01 documented in this encounter Visit Diagnoses Diagnosis Essential hypertension- Primary Unspecified essential hypertension B12 deficiency Hyperglycemia Other abnormal glucose Vitamin D deficiency BMI 36.0-36.9,adult Other fatigue Hyperlipidemia, unspecified hyperlipidemia type documented in this encounter Care Teams Back Sewer Relationship Specialty Start Date End Date Starr Bran PA [address] [place] [address] PCP - General Internal Medicine 12/30/18 Bibiana Schuler MD [address] [place] [address] Consulting Physician Gastroenterology 05/11/21 Cornelius Garcia DO [address] [place] [address] MEDICAL ONCOLOGY, [address] [place] [address] Medical Oncologist/Hematologis t Hematology and Oncology 09/26/21 Madhu Brito MD [address] [place] [address] Consulting Physician Rheumatology 05/22/23 documented as of this encounter
--- OUTSIDE RECORDS SUMMARY | 2024-07-18 20:24 | XMS_ITS | Encounter Summary ---
Author Organization [facility] Healthcare Address [address] [place] [address] Care Team Providers Care Automatic Buffer Name Role Phone Starr Bran Primary Care Provider [phone] Bibiana Schuler MD Unavailable [phone] Cornelius Garcia DO Unavailable [phone] Madhu Brito MD Unavailable [phone] Encounter Details Date Type Department Care Team (Late st Contact Info) Description 06/18/2024 8:00 AM JUNIOR ORACLE DBA Lab [facility] at [address] [phone] Iron deficiency anemia due to chronic blood [...] on file Legal Sex Female 10:31 AM JUNIOR ORACLE DBA Gender Identity Female 02/02/2021 7:25 AM CDT Sexual Orientation Straight 02/02/2021 7: 25 AM CDT documented as of this encounter Plan of Treatment Not on file documented as of this encounter Procedures Procedure Name Priority Date/Time Associated Diagnosis Comments DIFFERENTIAL AUTO Routine 06/18/2024 8:0 4 AM JUNIOR ORACLE DBA Iron deficiency anemia due to chronic blood loss IRON PROFILE W/ IBC Routine 06/18/2024 8 :04 AM JUNIOR ORACLE DBA Iron deficiency anemia due to chronic blood loss CBC WITH AUTO DIFFERENTIAL Routine 06/18/2024 8:04 AM JUNIOR ORACLE DBA Iron deficiency anemia due to chronic blood loss FERRITIN Routine 06/18/2024 8:04 AM JUNIOR ORACLE DBA Iron deficiency anemia due to chronic blood loss documented in this encounter Results * (ABNORMAL) Differential, auto (06/18/2024 8:04 AM JUNIOR ORACLE DBA) Neutrophil abs 3.0 1.5 - 6.5 K/cumm Comment:Testing performed by : [address] [address] Imm gran abs 0.0 0.0 - 0.1 K/cumm LELAND Comment:Testing performed by : [address] [address] Lymphocyte abs 0.7(L) 0.8 - 3.3 K/cumm LELAND Comment:Testing performed by : [address] [address] Monocyte abs 0.3 0.2 - 0.8 K/cumm LELAND Comment:Testing performed by : [address] [address] Eosinophil abs 0.2 0.0 - 0.5 K/cumm LELAND Comment:Testing performed by : [address] [address] Basophil abs 0.0 0.0 - 0.1 K/cumm LELAND Comment:Testing performed by : [address] [address] Neutrophil pct 71.1 % [facility] Comment: Interpretive Data Percent cell count reference ranges are not reported, since discordance with absolute values may lead to misinterpretation of CBC data. Current Interpretive Data was last revised on 2017. Testing performed by: [address] [address] Imm gran pct 0.5 % [facility] Comment: Interpretive Data Percent cell count reference ranges are not reported, since discordance with absolute values may lead to misinterpretation of CBC data. Current Interpretive Data was last revised on 2017. Testing performed by: [address] [address] Lymphocyte pct 16.1 % [facility] Comment: Interpretive Data Percent cell count reference ranges are not reported, since discordance with absolute values may lead to misinterpretation of CBC data. Current Interpretive Data was last revised on 2017. Testing performed by: [address] [address] Monocyte pct 7.0 % [facility] Comment: Interpretive Data Percent cell count reference ranges are not reported, since discordance with absolute values may lead to misinterpretation of CBC data. Current Interpretive Data was last revised on 2017. Testing performed by: [address] [address] Eosinophil pct 4.6 % [facility] Comment: Interpretive Data Percent cell count reference ranges are not reported, since discordance with absolute values may lead to misinterpretation of CBC data. Current Interpretive Data was last revised on 2017. Testing performed by: [address] [address] Basophil pct 0.7 % [facility] Comment: Interpretive Data Percent cell count reference ranges are not reported, since discordance with absolute values may lead to misinterpretation of CBC data. Current Interpretive Data was last revised on 2017. Testing performed by: [address] [address] Blood 06/18/2024 8:04 AM JUNIOR ORACLE DBA 06/18/2024 8:16 AM JUNIOR ORACLE DBA Cornelius Garcia DO LAB BLOOD ORDERABLES Final R esult Performing Organization Address City/[facility]/ZIP Co de Phone Number LELAND [address] [place] [address] * Ferritin (06/18/2024 8:04 AM JUNIOR ORACLE DBA) Pathologist [facility] Ferritin 29 15 - 150 ng/mL Comment:Testing performed by : [address] [address] Blood 06/18/2024 8:04 AM JUNIOR ORACLE DBA 06/18/2024 9:50 AM JUNIOR ORACLE DBA Cornelius Garcia DO LAB BLOOD ORDERABLES Final R esult Performing Organization Address [facility] de Phone Number JON[address] [address] * (ABNORMAL) Iron profile w/ IBC (06/18/2024 8:04 AM JUNIOR ORACLE DBA) Pathologist [facility] Iron 49 35 - 145 mcg/dL Comment:Testing performed by : [address] [address] TIBC 375 250 - 400 mcg/dL LELAND Comment:Testing performed by : [address] [address] Transferrin saturation 13(L) 20 - 50 % LELAND Comment:Testing performed by : [address] [address] Blood 06/18/2024 8:04 AM JUNIOR ORACLE DBA 06/18/2024 9:50 AM JUNIOR ORACLE DBA Cornelius Garcia DO LAB BLOOD ORDERABLES Final R esult Performing Organization Address [facility] Co de Phone Number LELAND [address] [place] [address] * (ABNORMAL) CBC with auto differential (06/18/2024 8:04 AM JUNIOR ORACLE DBA) WBC 4.2 3.8 - 9.9 K/cumm Comment:Testing performed by : [address] [address] Hgb 10.0(L) 11.9 - 15.5 g/dL LELAND Comment:Testing performed by : [address] [address] Hct 33.0(L) 35.6 - 45.5 % LELAND Comment:Testing performed by : [address] [address] Plt 209 150 - 400 K/cumm LELAND Comment:Testing performed by : [address] [address] MPV 10.0 9.1 - 12.3 fL LELAND Comment:Testing performed by : [address] [address] RBC 4.30 3.90 - 5.20 M/cumm LELAND Comment:Testing performed by : [address] [address] MCV 76.7(L) 81.3 - 96.4 fL LELAND Comment:Testing performed by : [address] [address] MCH 23.3(L) 27.1 - 33.3 pg LELAND Comment:Testing performed by : [address] [address] MCHC 30.3(L) 32.3 - 35.7 g/dL LELAND Comment:Testing performed by : [address], [address] RDW CV 18.7(H) 11.1 - 14.9 % LELAND Comment:Testing performed by : [address], [address] RDW SD 51.6(H) 35.7 - 48.1 fL LELAND Comment:Testing performed by : [address] [address] NRBC abs 0.00 0.00 - 0.01 K/cumm LELAND Comment:Testing performed by : [place] [address] [place]., [address] Blood 06/18/2024 8:04 AM JUNIOR ORACLE DBA 06/18/2024 8:16 AM JUNIOR ORACLE DBA Cornelius Garcia DO LAB BLOOD ORDERABLES Final R esult LELAND [address] [facility] Department [place] [address] documented in this encounter Visit Diagnoses Diagnosis Iron deficiency anemia due to chronic blood loss Iron deficiency anemia secondary to blood loss (chronic) documented in this encounter Orders Appointment Requests Count Last Ordered Date Fi rst Ordered Date ONCBCN LAB APPOINTMENT 1 06/18/2024 documented in this encounter Care Teams Automatic Buffer Relationship Specialty Start Date End Date Starr Bran PA [address] [place] [address] PCP - General Internal Medicine 12/30/18 Bibiana Schuler MD [address] [place] [address] Consulting Physician Gastroenterology 05/11/21 Cornelius Garcia DO [address] [place] [address] MEDICAL ONCOLOGY, [facility] [address] [place] [address] Medical Oncologist/Hematologis t Hematology and Oncology 09/26/21 Madhu Brito MD [address] [place] [address] Consulting Physician Rheumatology 05/22/23 documented as of this encounter
--- OUTSIDE RECORDS SUMMARY | 2024-07-18 20:24 | XMS_ITS | Encounter Summary ---
Author Organization [facility] Address [address] [facility] [address] [place] [address] Phone Care Team Providers Care Certified Medical Biller Name Role Phone Starr Bran Primary Care Provider [phone] Bibiana Schuler MD Unavailable [phone] Cornelius Garcia DO Unavailable Madhu Brito MD Unavailable [phone] Encounter Details Date Type Department Care Team (Late st Contact Info) Description 06/18/2024 8:45 AM CAR RENTAL CLERK Office Visit [facility] Physicians [facility] Oncology [facility] [address] Cornelius Garcia DO [address] [place] [address] History of pulmonary embolus (PE) (Primary Dx); [...] on file Legal Sex Female 10:31 AM CAR RENTAL CLERK Gender Identity Female 02/02/2021 7:25 AM CDT Sexual Orientation Straight 02/02/2021 7: 25 AM CDT documented as of this encounter Last Filed Vital Signs Vital Sign Reading Time Taken Comments Blood Pressure 167/82 06/18/2024 8:32 AM CAR RENTAL CLERK Pulse 74 06/18/2024 8:32 AM CAR RENTAL CLERK Temperature 36.7 ??C (98.1 ??F) 06/18/2024 8:32 AM CS T Respiratory Rate 16 06/18/2024 8:32 AM CAR RENTAL CLERK Oxygen Saturation 98% 06/18/2024 8:32 AM CAR RENTAL CLERK Inhaled Oxygen Concentration - - Weight 98 kg (216 lb) 06/18/2024 8:32 AM CAR RENTAL CLERK Height - - Body Mass Index 38.26 06/15/2024 10:24 AM CAR RENTAL CLERK documented in this encounter Plan of Treatment Scheduled Orders Name Type Priority Associated Diagnoses Orde r Schedule CBC with auto differential Lab Routine Iron deficiency anemia due to chronic blood loss every 3 months for 2 Occurrences starting 06/18/2024 until 06/18/2025 Ferritin Lab Routine Iron deficiency anemia due to chronic blood loss every 3 months for 2 Occurrences starting 06/18/2024 until 06/18/2025 Iron profile w/ IBC Lab Routine Iron deficiency anemia due to chronic blood loss every 3 months for 2 Occurrences starting 06/18/2024 until 06/18/2025 documented as of this encounter Results * (ABNORMAL) CBC with auto differential (06/18/2024 8:04 AM CAR RENTAL CLERK) WBC 4.2 3.8 - 9.9 K/cumm Comment:Testing performed by : [facility], [address] [place] [address], [place]., [address] Hgb 10.0(L) 11.9 - 15.5 g/dL LELAND GARCIA Comment:Testing performed by : [address] [address] Hct 33.0(L) 35.6 - 45.5 % LELAND Comment:Testing performed by : [address] [address] Plt 209 150 - 400 K/cumm LELAND Comment:Testing performed by : [address] [address] MPV 10.0 9.1 - 12.3 fL LELAND Comment:Testing performed by : [address], [address] RBC 4.30 3.90 - 5.20 M/cumm LELAND Comment:Testing performed by : [address] [address] MCV 76.7(L) 81.3 - 96.4 fL LELAND Comment:Testing performed by : [address] [address] MCH 23.3(L) 27.1 - 33.3 pg LELAND Comment:Testing performed by : [address] [address] MCHC 30.3(L) 32.3 - 35.7 g/dL LELAND Comment:Testing performed by : [address] [address] RDW CV 18.7(H) 11.1 - 14.9 % LELAND Comment:Testing performed by : [address], [address] RDW SD 51.6(H) 35.7 - 48.1 fL LELAND Comment:Testing performed by : [address], [address] NRBC abs 0.00 0.00 - 0.01 K/cumm LELAND Comment:Testing performed by : [address] [address] Blood 06/18/2024 8:04 AM CAR RENTAL CLERK 06/18/2024 8:16 AM CAR RENTAL CLERK Cornelius Garcia DO LAB BLOOD ORDERABLES Final R esult LELAND [address] [facility] [place] [address] documented in this encounter Visit Diagnoses Diagnosis History of pulmonary embolus (PE)- Primary History of DVT (deep vein thrombosis) Iron deficiency anemia due to chronic blood loss Iron deficiency anemia secondary to blood loss (chronic) documented in this encounter Discontinued Medications Medication Sig Discontinue Reason Start Date End Da te apixaban (ELIQUIS) 2.5 mg tabletIndications:Venous Thrombosis Take 1 tablet (2.5 mg total) by mouth 2 (two) times a day 05/07/24 Therapy completed 06/18/2024 documented as of this encounter Orders Appointment Requests Count Last Ordered Date Fi rst Ordered Date ONCBCN CLINIC APPOINTMENT REQUEST 2 024 ONCBCN LAB APPOINTMENT 1 06/18/2024 documented in this encounter Care Teams Certified Medical Biller Relationship Specialty Start Date End Date Starr Bran PA [address] [place] [address] PCP - General Internal Medicine 12/30/18 Bibiana Schuler MD [address] [place] [address] Consulting Physician Gastroenterology 05/11/21 Cornelius Garcia DO [address] [place] [address] MEDICAL ONCOLOGY, [address] [place] [address] Medical Oncologist/Hematologis t Hematology and Oncology 09/26/21 Madhu Brito MD [address] [place] [address] Consulting Physician Rheumatology 05/22/23 documented as of this encounter
--- OUTSIDE RECORDS SUMMARY | 2024-07-18 20:24 | XMS_ITS | Encounter Summary ---
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 Procedures ESOPHAGOGASTRODUODENOSCOPY Referral ID Status Reason Start Date Expiration Date Visits Re quested Visits Authorized [id number] 1 1 Encounter Details Date Type Department Care Team (Latest Contact Info) Description 05/22/2024 11:15 AM CDT - 05/22/2024 11:45 AM CDT Surgery [facility] GI Lab [address] [place] [address] Bibiana Schuler MD [address] [facility] [address] [place] [id number] ESOPHAGOGASTRODUODENOSCOPY WITH ABLATION Surgery Details Date/Time Status Location OR Service Patient Class Case Class Case Type Trauma Case? 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 Gender Identity Female 02/02/2021 7:25 AM CDT Sexual Orientation Straight 02/02/2021 7: 25 AM CDT documented as of this encounter Last Filed Vital Signs Vital Sign Reading Time Taken Comments Blood Pressure 170/84 05/22/2024 10:37 AM CDT Pulse 80 05/22/2024 10:37 AM CDT Temperature 36.9 ??C (98.4 ??F) 05/22/2024 10:37 AM C DT Respiratory Rate 18 05/22/2024 10:37 AM CDT Oxygen Saturation 98% 05/22/2024 10:37 AM CDT Inhaled Oxygen Concentration - - Weight - - Height - - Body Mass Index - - documented in this encounter Medications at Time of Discharge FeroSuL 325 mg (65 mg iron) tabletIndication s:Low vitamin B12 level TAKE 1 TABLET BY MOUTH TWICE DAILY 180 tablet 2 12/11/2023 multivitamin tablet daily mycophenolate mofetil (CELLCEPT) 500 mg tablet Take 2 tablets (1,000 mg total) by mouth 2 (two) times a day 360 tablet 03/09/2024 omeprazole (PriLOSEC) 20 mg capsule Take 2 capsules (40 mg total) by mouth daily apixaban (ELIQUIS) 2.5 mg tabletIndication s:Venous Thrombosis Take 1 tablet (2.5 mg total) by mouth 2 (two) times a day 05/07/24 06/18/2024 gabapentin (NEURONTIN) 100 mg capsuleIndicatio ns:Vasomotor symptoms due to menopause TAKE 1 CAPSULE BY MOUTH IN THE MORNING 90 capsule 1 09/25/2023 05/25/2024 gabapentin (NEURONTIN) 300 mg capsuleIndicatio ns:Vasomotor phenomenon TAKE 1 CAPSULE BY MOUTH AT NIGHT 90 capsule 1 09/25/2023 05/25/2024 lisinopriL (PRINIVIL,ZESTRI L) 10 mg tablet Take 1 tablet (10 mg total) by mouth daily 10/06/2023 07/09/2024 venlafaxine XR (EFFEXOR-XR) 75 mg 24 hr capsule TAKE 3 CAPSULES DAILY WITH FOOD (DOSE INCREASE TO 225 MG. STOP 150 MG) 270 capsule 3 09/02/2023 07/01/2024 documented as of this encounter Discharge Disposition Disposition Code Departure Means Destination Comment s Discharge to home or self care documented in this encounter H&P Notes * Biibana Schuler MD - 05/22/2024 10:51 AM CDT Bibiana Schuler MD Attending Provider: Bibiana Schuler MD PCP: Starr Bran PA PATIENT: Viktoriya Bell : 1965 Date of Visit: 05/21/2024 HPI: Viktoriya Bell is an 59 y.o. female who presents for Iron Deficiency Anemia. 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 Patient Active Problem List Diagnosis Essential hypertension Vitamin D deficiency BMI 36.0-36.9,adult Hyperglycemia Other fatigue PHAN (dyspnea on exertion) Iron deficiency anemia due to chronic blood loss History of pulmonary embolus (PE) Low vitamin B12 level History of DVT (deep vein thrombosis) Acute pain of left knee SOB (shortness of breath) Moderate episode of recurrent major depressive disorder (HCC) H/O total hysterectomy with bilateral salpingo-oophorectomy (BSO) Vasomotor symptoms due to menopause Fatigue Anemia Arthralgia Restless legs Morbid obesity (HCC) Positive AMINA (antinuclear antibody) Systemic sclerosis (HCC) B12 deficiency Mariano's cyst of knee, right Bilateral lower extremity edema Past Medical History: Diagnosis Date Anemia Depression GAVE (gastric antral vascular ectasia) 07/25/[address] Schuler after endoscopy GERD (gastroesophageal reflux disease) Hypertension Pulmonary embolism (HCC) 10/2021 Scleroderma (HCC) Past Surgical History: Procedure Laterality Date SECTION 12/1990 COLONOSCOPY HYSTERECTOMY 08/08/2021 UPPER GASTROINTESTINAL ENDOSCOPY Family History Problem Relation Age of Onset Hypertension Mother No Known Problems Sister No Known Problems Daughter No Known Problems Maternal Grandmother No Known Problems Paternal Grandmother No Known Problems Mother's Sister No Known Problems Father's Sister No Known Problems Maternal Great-Grandmother No Known Problems Paternal Great-Grandmother No Known Problems Maternal Half-Sister No Known Problems Paternal Half-Sister No Known Problems Maternal cousin No Known Problems Paternal cousin No Known Problems Child No Known Problems Cousin No Known Problems Niece Hypertension Father No Known Problems Brother No Known Problems Son No Known Problems Maternal Grandfather No Known Problems Paternal Grandfather No Known Problems Mother's Brother No Known Problems Father's Brother No Known Problems Maternal Great-Grandfather No Known Problems Paternal Great-Grandfather No Known Problems Maternal Half-Brother No Known Problems Paternal Half-Brother No Known Problems Nephew No Known Problems Other BRCA 1 Neg Hx BRCA 2 Neg Hx Breast cancer Neg Hx Ovarian cancer Neg Hx Benign Breast Condition Neg Hx Ductal Carcinoma In-Situ Neg Hx Usual Breast Hyperplasia Neg Hx Thyroid cancer Neg Hx Endometrial cancer Neg Hx Social History Tobacco Use Smoking status: Never Smokeless tobacco: Never Substance and Sexual Activity Drug use: Never Sexual activity: Yes Partners: Male Alcohol Use: Not At Risk (05/19/2024) AUDIT-C Frequency of Alcohol Consumption: Monthly or less Average Number of Drinks: 1 or 2 Frequency of Binge Drinking: Never No medications prior to admission. No Known Allergies Travel Exposure: Travel Screening ALERT There were no vitals taken for this visit. Physical Exam Constitutional: she appears well-developed and well-nourished. Cardiovascular: Normal rate. Pulmonary/Chest: Breath sounds normal. Abdominal: Soft, non-tender. she exhibits no edema. Assessment & Plan: EGD with Argon Beam Coagulation Bibiana Schuler MD 05/21/2024 documented in this encounter Procedure Notes * Bibiana Schuler MD - 05/22/2024 11:27 AM CDTAssociated Order(s): EGD [facility] GI ENDOSCOPY Patient Name: Viktoriya Bell Procedure Date: 05/22/2024 11:27 AM Date of : 1965 Admit Type: Outpatient Age: 59 Gender: Female Attending MD: Bibiana Schuler M.D. Room: [facility] ENDOSCOPY ROOM [facility] Note Status: Finalized Procedure: Upper GI endoscopy Indications: Arteriovenous malformation in the stomach Referring MD: Providers: Bibiana Schuler M.D. Medicines: See the Anesthesia note for documentation of the administered medications Complications: No immediate complications. Procedure: Pre-Anesthesia Assessment: - Prior to the procedure, a History and Physical was performed, and patient medications, allergies and sensitivities were reviewed. The patient's tolerance of previous anesthesia was reviewed. - The risks and benefits of the procedure and the sedation options and risks were discussed with the patient. All questions were answered and informed consent was obtained. The benefits, risks, and alternatives to the procedure and sedation were discussed and informed consent was obtained. The scope was passed under direct [...] esophagus. - Gastric antral vascular ectasia. Treated with argon beam coagulation. - Normal examined duodenum. - No specimens collected. Recommendation: - Resume previous diet. - Continue present medications. Bibiana Schuler M.D. Bibiana Schuler M.D. 05/22/2024 11:55:24 AM . Number of Addenda: 0 Note Initiated On: 05/22/2024 11:27 AM Recognized by the [employer] for promoting quality in endoscopy documented in this encounter Miscellaneous Notes * Perioperative Nursing Note - Bev Ghotra RN - 05/22/2024 10:52 AM CDT Patient had permanent jewelry bracelet on left wrist pre-op. Patient gave this RN permission to cutbracelet to remove for procedure. KW RN * Pre-Procedure Instructions - Nieves Moscoso RN - 05/19/2024 2:01 PM CDT ~No smoking of any kind or drinking alcohol for 12 hours prior to procedure. ~[place] teeth but do not swallow ~Shower or bathe, do not apply powders or lotions, deodorant is okay ~Expect to remove wigs, dentures, partials, contact lenses, body piercings and prosthesis ~Leave all jewelry and valuables at home ~Bring your glasses and hearing aide/s ~Follow the doctor's instructions regarding when to stop vitamins or supplements, phentermine if applicable, and blood thinning medications including NSAIDS. ~Follow the instructions for your prep if having a colonoscopy ~Make sure you have a regional intermodal truck driver to bring you home. ~The morning of the procedure, take only the following medications: (gabapentin, cellcept, effexor,prilosec, ) ~The day before the procedure, our medical oncology physician will be contacting you to confirm you are still coming for your appointment and that you have your prep instructions and will be starting them soon. This is to decrease cancellations as much as possible. ~Please arrive on 05/22/2024 at [facility], Medical Office Building 1, Entrance A- Outpatient surgery entrance at (1015), for your procedure start time of (1115). ~You will be here a total of approximately 2-2.5 hours. documented in this encounter Plan of Treatment Not on file documented as of this encounter Procedures Procedure Name Priority Date/Time Associated Diagnosis Comments ESOPHAGOGASTRODUODENOSCOPY W ITH ABLATION 05/22/2024 11:28 AM CDT Gastric antral vascular ectasia EGD 05/22/2024 11:27 AM CDT documented in this encounter Results * EGD (05/22/2024 11:27 AM CDT) Anatomical Region Laterality Modality Other Narrative Procedure Note Bibiana Schuler MD - 05/22/2024 11:27 AM CDT [facility] GI ENDOSCOPY Patient Name: Viktoriya Bell Procedure Date: 05/22/2024 11:27AM Date of : 1965 Admit Type: Outpatient Age: 59 Gender: Female Attending MD: Bibiana Schuler M.D. Room: [facility] ENDOSCOPY ROOM [address] [facility] Note Status: Finalized Procedure: Upper GI endoscopy [...] On: 05/22/2024 11:27 AM Recognized by the [employer] for promoting quality in endoscopy Bibiana Schuler MD ENDOSCOPY PROCEDURES [place] Result documented in this encounter Visit Diagnoses Diagnosis Gastric antral vascular ectasia Other specified disorder of stomach and duodenum documented in this encounter Administered Medications Inactive Administered Medications - up to 3 most recent administrations Medication Order MAR Action Action Date Dose Rate Site Lactated Ringer's (LR) infusion 30 mL/hr, intravenous, Continuous, Starting on Sat05/22/24 at 1100, Pre-Op Rate/Dose Verify 05/22/2024 11:36 AM CDT 30 mL/hr New Bag 05/22/2024 10:48 AM CDT 30 mL/hr 30 mL/hr lidocaine (XYLOCAINE) 10 mg/mL (1 %) injection 2-10 mg 2-10 mg (0.2-1 mL), other, Once as needed, pain with IV placement, Starting on Sat05/22/24 at 1026, For 1 dose, Pre-Op, Administer volume needed to infiltrate IV site. sodium chloride 0.9% flush 0.5-20 mL 0.5-20 mL, intra-catheter, As needed, line care, Starting on Sat05/22/24 at 1026, Pre-Op, Flush volume based on line type and size. Flush before and after each use. documented in this encounter Historical Medications * This list may reflect changes made after this encounter. apixaban (ELIQUIS) 2.5 mg tabletIndications :Venous Thrombosis Take 1 tablet (2.5 mg total) by mouth 2 (two) times a day 05/07/24 06/18/2024 added in this encounter Active and Recently Administered Medications Times are shown in CDT. Continuous Medication Order 05/20/2024 05/21/2024 05/22/2024 Lactated Ringer's (LR) infusion 30 mL/hr, intravenous, Continuous, Starting on Sat05/22/24 at 1100, Pre-Op 1048 (New Bag - Prov ider: Bev Ghotra, RN)1136 (Rate/Dose Verify - Provider: Rolando Farrar CRNA)1146 (Anesthesia Volume Adjustment - Provider: Rolando Farrar CRNA)1218 (Stopped - Provider: Bev Ghotra RN) PRN Medication Order 05/20/2024 05/21/2024 05/22/2024 lidocaine (XYLOCAINE) 10 mg/mL (1 %) injection 2-10 mg 2-10 mg (0.2-1 mL), other, Once as needed, pain with IV placement, Starting on Sat05/22/24 at 1026, For 1 dose, Pre-Op, Administer volume needed to infiltrate IV site. sodium chloride 0.9% flush 0.5-20 mL 0.5-20 mL, intra-catheter, As needed, line care, Starting on Sat05/22/24 at 1026, Pre-Op, Flush volume based on line type and size. Flush before and after each use. documented in this encounter Orders Medications Ordered That Sonido ht Not Have Been Administered Count Last Ordered Date First Ordered Date lidocaine (XYLOCAINE) 10 mg/ mL (1 %) injection 2-10 mg 1 05/22/2024 sodium chloride 0.9% flush 0.5-20 mL 1 04/29 Discharge Count Last Ordered Date First Orde red Date DISCHARGE PATIENT 1 05/22/2024 documented in this encounter Care Teams Oncology Rep Specialist Relationship Specialty Start Date End Date Starr Bran PA [address] [place] [address] PCP - General Internal Medicine 12/30/18 Bibiana Schuler MD [address] [place] [address] Consulting Physician Gastroenterology 05/11/21 Cornelius Garcia DO [address] [place] [address] MEDICAL ONCOLOGY, [address] [place] [address] Medical Oncologist/Hematologis t Hematology and Oncology 09/26/21 Madhu Brito MD [address] [place] [address] Consulting Physician Rheumatology 05/22/23 documented as of this encounter
--- OUTSIDE RECORDS SUMMARY | 2024-07-18 20:24 | XMS_ITS | Encounter Summary ---
Author Organization [facility] Healthcare Address [address] [place] [address] Care Team Providers Care Electrician Outside Name Role Phone Starr Bran Primary Care Provider [phone] Bibiana Schuler MD Unavailable [phone] Cornelius Garcia DO Unavailable [phone] Madhu Brito MD Unavailable [phone] Encounter Details Date Type Department Care Team (Late st Contact Info) Description 06/04/2024 8:00 AM ANALYTICAL LABORATORY TECHNICIAN Lab [facility] at [address] [id number] Iron deficiency anemia due to chronic blood [...] on file Legal Sex Female 10:31 AM ANALYTICAL LABORATORY TECHNICIAN Gender Identity Female 02/02/2021 7:25 AM CDT Sexual Orientation Straight 02/02/2021 7: 25 AM CDT documented as of this encounter Plan of Treatment Not on file documented as of this encounter Procedures Procedure Name Priority Date/Time Associated Diagnosis Comments DIFFERENTIAL AUTO Routine 06/04/2024 8:2 7 AM ANALYTICAL LABORATORY TECHNICIAN Iron deficiency anemia due to chronic blood loss CBC WITH AUTO DIFFERENTIAL Routine 06/04/2024 8:27 AM ANALYTICAL LABORATORY TECHNICIAN Iron deficiency anemia due to chronic blood loss documented in this encounter Results * (ABNORMAL) Differential, auto (06/04/2024 8:27 AM ANALYTICAL LABORATORY TECHNICIAN) Neutrophil abs 2.4 1.5 - 6.5 K/cumm Comment:Testing performed by : [address] [address] Imm gran abs 0.0 0.0 - 0.1 K/cumm [facility] Comment:Testing performed by : [address] [address] Lymphocyte abs 0.7(L) 0.8 - 3.3 K/cumm [facility] Comment:Testing performed by : [address] [address] Monocyte abs 0.4 0.2 - 0.8 K/cumm [facility] Comment:Testing performed by : [address] [address] Eosinophil abs 0.2 0.0 - 0.5 K/cumm [facility] Comment:Testing performed by : [address] [address] Basophil abs 0.0 0.0 - 0.1 K/cumm [facility] Comment:Testing performed by : [address] [address] Neutrophil pct 65.1 % [facility] Comment: Interpretive Data Percent cell count reference ranges are not reported, since discordance with absolute values may lead to misinterpretation of CBC data. Current Interpretive Data was last revised on 2017. Testing performed by: [address] [address] Imm gran pct 0.3 % [facility] Comment: Interpretive Data Percent cell count reference ranges are not reported, since discordance with absolute values may lead to misinterpretation of CBC data. Current Interpretive Data was last revised on 2017. Testing performed by: [address] [address] Lymphocyte pct 19.6 % [facility] Comment: Interpretive Data Percent cell count reference ranges are not reported, since discordance with absolute values may lead to misinterpretation of CBC data. Current Interpretive Data was last revised on 2017. Testing performed by: [address] [address] Monocyte pct 10.2 % [facility] Comment: Interpretive Data Percent cell count reference ranges are not reported, since discordance with absolute values may lead to misinterpretation of CBC data. Current Interpretive Data was last revised on 2017. Testing performed by: [address] [address] Eosinophil pct 4.3 % [facility] Comment: Interpretive Data Percent cell count reference ranges are not reported, since discordance with absolute values may lead to misinterpretation of CBC data. Current Interpretive Data was last revised on 2017. Testing performed by: [address] [address] Basophil pct 0.5 % [facility] Comment: Interpretive Data Percent cell count reference ranges are not reported, since discordance with absolute values may lead to misinterpretation of CBC data. Current Interpretive Data was last revised on 2017. Testing performed by: [address] [address] Blood 06/04/2024 8:27 AM ANALYTICAL LABORATORY TECHNICIAN 06/04/2024 8:29 AM ANALYTICAL LABORATORY TECHNICIAN us Cornelius Garcia DO LAB BLOOD ORDERABLES Final R esult JONOANA MARIA [address] [facility] Department [place] [address] * (ABNORMAL) CBC with auto differential (06/04/2024 8:27 AM ANALYTICAL LABORATORY TECHNICIAN) [facility] WBC 3.7(L) 3.8 - 9.9 K/cumm Comment:Testing performed by : [address] [address] Hgb 10.0(L) 11.9 - 15.5 g/dL [facility] Comment:Testing performed by : [address] [address] Hct 33.6(L) 35.6 - 45.5 % [facility] Comment:Testing performed by : [address], [address] Plt 228 150 - 400 K/cumm [facility] Comment:Testing performed by : [address] [address] MPV 10.2 9.1 - 12.3 fL [facility] Comment:Testing performed by : [address], [address] RBC 4.31 3.90 - 5.20 M/cumm [facility] Comment:Testing performed by : [address], [address] MCV 78.0(L) 81.3 - 96.4 fL [facility] Comment:Testing performed by : [address], [address] MCH 23.2(L) 27.1 - 33.3 pg [facility] Comment:Testing performed by : [address], [address] MCHC 29.8(L) 32.3 - 35.7 g/dL [facility] Comment:Testing performed by : [address], [address] RDW CV 19.7(H) 11.1 - 14.9 % [facility] Comment:Testing performed by : [address], [address] RDW SD 55.0(H) 35.7 - 48.1 fL [facility] Comment:Testing performed by : [address], [address] NRBC abs 0.00 0.00 - 0.01 K/cumm [facility] Comment:Testing performed by : [facility], [address] [facility], [place]., [address] Blood 06/04/2024 8:27 AM ANALYTICAL LABORATORY TECHNICIAN 06/04/2024 8:29 AM ANALYTICAL LABORATORY TECHNICIAN Cornelius Garcia DO LAB BLOOD ORDERABLES Final R esult [facility] [address] [facility] Department [place] [address] documented in this encounter Visit Diagnoses Diagnosis Iron deficiency anemia due to chronic blood loss Iron deficiency anemia secondary to blood loss (chronic) documented in this encounter Orders Appointment Requests Count Last Ordered Date Fi rst Ordered Date ONCBCN LAB APPOINTMENT 1 06/04/2024 documented in this encounter Care Teams Electrician Outside Relationship Specialty Start Date End Date Starr Bran PA [address] [place] [address] PCP - General Internal Medicine 12/30/18 Bibiana Schuler MD [address] [place] [address] Consulting Physician Gastroenterology 05/11/21 Cornelius Garcia DO [address] [place] [address] MEDICAL ONCOLOGY, [address] [place] [address] Medical Oncologist/Hematologis t Hematology and Oncology 09/26/21 Madhu Brito MD [facility] [place] [address] Consulting Physician Rheumatology 05/22/23 documented as of this encounter
--- OUTSIDE RECORDS SUMMARY | 2024-07-18 20:24 | XMS_ITS | Encounter Summary ---
Author Organization [facility] Healthcare Address [address] [place] [address] Care Team Providers Care Wood Tile Installer Name Role Phone Starr Bran Primary Care Provider [phone] Bibiana Schuler MD Unavailable Cornelius Garcia DO Unavailable [phone] Madhu Brito MD Unavailable [phone] Reason for Visit * Reason Comments Annual Exam Encounter Details Date Type Department Care Team (Late st Contact Info) Description 07/01/2024 10:00 AM SUPERVISOR DISPLAY FABRICATION Office Visit [facility] Family Medicine [address] [place] [address] Starr Bran PA [address] [place] [id number] Annual physical exam (Primary Dx); Low vitamin B12 level; Vasomotor symptoms due to menopause; Moderate episode of recurrent major depressive disorder (HCC); Hyperglycemia; Essential hypertension; Vitamin D deficiency; Anemia, unspecified type; Morbid obesity (HCC); BMI 38.0-38.9,adult Social History Tobacco Use Types Packs/Day Years [...] on file 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DISPLAY FABRICATION Gender Identity Female 02/02/2021 7:25 AM CDT Sexual Orientation Straight 02/02/2021 7: 25 AM CDT documented as of this encounter Last Filed Vital Signs Vital Sign Reading Time Taken Comments Blood Pressure 122/72 07/01/2024 10:07 AM SUPERVISOR DISPLAY FABRICATION Pulse 74 07/01/2024 10:07 AM SUPERVISOR DISPLAY FABRICATION Temperature 36.6 ??C (97.9 ??F) 07/01/2024 1 0:07 AM SUPERVISOR DISPLAY FABRICATION Respiratory Rate - - Oxygen Saturation 99% 07/01/2024 10: 07 AM SUPERVISOR DISPLAY FABRICATION Inhaled Oxygen Concentration - - Weight 97.4 kg (214 lb 11.2 oz) 024 10:07 AM SUPERVISOR DISPLAY FABRICATION Height 160 cm (5' 3 ) 07/01/2024 10:07 AM SUPERVISOR DISPLAY FABRICATION Body Mass Index 38.03 07/01/2024 10:07 AM SUPERVISOR DISPLAY FABRICATION documented in this encounter Progress Notes * Starr Bran PA - 07/01/2024 10:00 AM CST Images from the original note were not included. Subjective/Objective Patient ID: Viktoriya Bell is a 59 y.o. female. Chief Complaint Annual Exam HPI Patient presents for wellness exam and followup chronic concerns. 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 Willing to do every 3 weeks Vitamin D defienciency - 5000 international units daily Anemia Iron deficiency anemia has since resolved Patient saw Tierra Skelton on 01/31/2023 - levels are stable Dr Garcia - 3 iron infusions done in mid may 2023 Continue with iron supplement - FeSo4 bid and vitamin C restarted ASA 81 Restarted NOAC due to increased risk of clotting after rule out DVT ended up being a mariano's cyst. She was on the AC for a few months and H/H dropped so it was discontinued again. Dr. Schuler - EGD with ablation completed on 12/07/2022 shows normal esophagus and duodenum. 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 (Watermelon Stomach as seen with Scleroderma) Colonoscopy was normal and capsule follow through was negative Started on Prilosec - taking first thing in AM Stopped Sulcrafate. Has Liver US ordered as cirrhosis can be underlying reason for gastric antral vascular ectasia -- insurance denied it GI PA saw scans from hospital in 2020 and liver looked okay Scleroderma - [facility] 500 Both hands have been numb. Not a specific distribution -- has Nerve Conduction study scheduled 07/13 Vasomotor sxs- Effexor 225mg ---she tapered over the last few months and feels like her tears have resolved. Off for the last 2-3 weeks. Will [facility] Health maintenance FLU 2023 Colonoscopy 09/2020--->2030 Tdap 2015 Mamm 03/2022--> 03/2023 scheduled for 07/13 at [place] Lab Results Component Value Date VITB12 375 06/29/2024 Lab Results Component Value Date TSH 1.780 06/29/2024 Lab Results Component Value Date CHOL 143 06/29/2024 CHOL 173 05/02/2023 CHOL 185 05/22/2022 Lab Results Component Value Date HDL 48 06/29/2024 HDL 52 05/02/2023 HDL 51 05/22/2022 Lab Results Component Value Date LDLCALC 72 06/29/2024 LDLCALC 97 05/02/2023 LDLCALC 108 (H) 05/22/2022 Lab Results Component Value Date TRIG 129 06/29/2024 TRIG 134 05/02/2023 TRIG 147 05/22/2022 No results found for: POCCHDLR No results found for: POCNONHDL No results found for: POCCHLPL Lab Results Component Value Date HGBA1C 5.3 06/29/2024 Chemistry Lab Results Component Value Date SODIUM 139 06/29/2024 POTASSIUM 4.2 06/15/2024 CHLORIDE 104 06/29/2024 CO2 22 06/29/2024 ANIONGAP 12 11/03/2020 BUNSER 20 06/29/2024 CREATININE 0.67 06/29/2024 GLUCOSE 104 (H) 06/29/2024 CALCIUM 9.4 06/29/2024 BILITOT 0.4 06/29/2024 PROTEIN 6.2 06/29/2024 ALBUMIN 4.0 06/29/2024 ALKPHOS 79 06/29/2024 AST 13 06/29/2024 ALT 9 06/29/2024 MAGNESIUM 1.9 03/12/2023 Review of Systems See HPI Vitals: 07/01/24 1007 BP: 122/72 BP Location: Left arm Patient Position: Sitting Pulse: 74 Temp: 36.6 ??C (97.9 ??F) TempSrc: Oral SpO2: 99% Weight: 97.4 kg (214 lb 11.2 oz) Height: 160 cm (5' 3 ) Physical Exam Vitals and nursing note reviewed. Constitutional: Appearance: She is well-developed. HENT: Head: Normocephalic and atraumatic. Eyes: Comments: Pupils are equal Cardiovascular: Rate and Rhythm: Normal rate and regular rhythm. Heart sounds: No murmur heard. Pulmonary: Effort: Pulmonary effort is normal. Breath sounds: Normal breath sounds. Abdominal: Palpations: Abdomen is soft. Tenderness: There is no abdominal tenderness. Skin: General: Skin is warm and dry. Findings: No rash. Neurological: Mental Status: She is alert and oriented to person, place, and time. Assessment/Plan Diagnoses and all orders for this visit: Annual physical exam (Z00.00) (Primary) Assessment & Plan: Encouraged healthy lifestyle, good nutrition and exercise. Encouraged Calcium and Vitamin D and weight bearing exercise for bone health. Reviewed immunizations Reviewed age appropirate screenings. Low vitamin B12 level (R79.89) Assessment & Plan: Supplement is still needed she has a elevated parietal cell antibody. She has been doing injectionsevery month and her level continues to drop into the mid 300s. Suggest doing every 3rd week. Will get her scheduled for 2 weeks apart initially and then every 3rd week since she is here today and already has an appointment in 2 weeks continue to monitor labs Orders: - Vitamin B12; Future Vasomotor symptoms due to menopause (N95.1) Assessment & Plan: Vasomotor symptoms have stabilized. She discontinued the Effexor 225 and is doing well Moderate episode of recurrent major depressive disorder (HCC) (F33.1) Assessment & Plan: Depression symptoms have stabilized. She stopped the Effexor primarily because she felt like her perimenopausal symptoms head resolved. Will continue to monitor at this point. Hyperglycemia (R73.9) Assessment & Plan: Check labs Essential hypertension (I10) Assessment & Plan: Bp is stable/in acceptable range for any co-morbidities. Encouraged to limit sodium intake and exercise for weight control. Continue lisinopril 10 Vitamin D deficiency (E55.9) Assessment & Plan: Supplement Anemia, unspecified type (D64.9) Assessment & Plan: Anemia had normalized. She used anticoagulation over the summer after rule out DVT turned out to ana paula Mariano's cyst. With her history of scleroderma she was at increased risk so anticoagulation was continued after discussion with Dr. Albert. Her H and H started to drop was determined she will need to stay off of it. Will continue to monitor. Morbid obesity (HCC) (E66.01) Assessment & Plan: Discussed the patient's BMI. The BMI is above average. BMI management plan is completed. BMI Follow-up includes: nutrition counseling, exercise counseling and education provided. Patient has an obesity-related condition (not limited to: hypertension, obstructive sleep apnea, osteoarthritis, hyperlipidemia, diabetes, etc.). Therefore, morbid obesity may be documented for patients with a BMI between 35.00-39.99. BMI 38.0-38.9,adult (Z68.38) Assessment & Plan: Discussed the patient's BMI. The BMI is above average. BMI management plan is completed. BMI Follow-up includes: nutrition counseling, exercise counseling and education provided. *This note is dictated using [employer] medical voice recognition software, variances in spelling and vocabulary are possible and unintentional.* Starr Bran PA-C Cosigned by Moiz Mondragon MD at 07/13/2024 11:24 PM SUPERVISOR DISPLAY FABRICATION RVISOR DISPLAY FABRICATION RVISOR DISPLAY FABRICATION documented in this encounter Miscellaneous Notes * Assessment & Plan Note - Starr Bran PA - 07/12/2024 8:31 PM SUPERVISOR DISPLAY FABRICATION Associated Problem(s): Annual physical exam Encouraged healthy lifestyle, good nutrition and exercise. Encouraged Calcium and Vitamin D and weight bearing exercise for bone health. Reviewed immunizations Reviewed age appropirate screenings. RVISOR DISPLAY FABRICATION * Assessment & Plan Note - Starr Bran PA - 07/12/2024 8:31 PM SUPERVISOR DISPLAY FABRICATION Associated Problem(s): Low vitamin B12 level Supplement is still needed she has a elevated parietal cell antibody. She has been doing injectionsevery month and her level continues to drop into the mid 300s. Suggest doing every 3rd week. Will get her scheduled for 2 weeks apart initially and then every 3rd week since she is here today and already has an appointment in 2 weeks continue to monitor labs RVISOR DISPLAY FABRICATION * Assessment & Plan Note - Starr Bran PA - 07/12/2024 8:30 PM SUPERVISOR DISPLAY FABRICATION Associated Problem(s): Vasomotor symptoms due to menopause Vasomotor symptoms have stabilized. She discontinued the Effexor 225 and is doing well RVISOR DISPLAY FABRICATION * Assessment & Plan Note - Starr Bran PA - 07/12/2024 8:30 PM SUPERVISOR DISPLAY FABRICATION Associated Problem(s): Moderate episode of recurrent major depressive disorder (HCC) Depression symptoms have stabilized. She stopped the Effexor primarily because she felt like her perimenopausal symptoms head resolved. Will continue to monitor at this point. RVISOR DISPLAY FABRICATION * Assessment & Plan Note - Starr Bran PA - 07/12/2024 8:29 PM SUPERVISOR DISPLAY FABRICATION Associated Problem(s): Hyperglycemia Check labs RVISOR DISPLAY FABRICATION * Assessment & Plan Note - Starr Bran PA - 07/12/2024 8:29 PM SUPERVISOR DISPLAY FABRICATION Associated Problem(s): Essential hypertension Bp is stable/in acceptable range for any co-morbidities. Encouraged to limit sodium intake and exercise for weight control. Continue lisinopril 10 RVISOR DISPLAY FABRICATION * Assessment & Plan Note - Starr Bran PA - 07/12/2024 8:29 PM SUPERVISOR DISPLAY FABRICATION Associated Problem(s): Vitamin D deficiency Supplement RVISOR DISPLAY FABRICATION * Assessment & Plan Note - Starr Bran PA - 07/12/2024 8:29 PM SUPERVISOR DISPLAY FABRICATION Associated Problem(s): Anemia Anemia had normalized. She used anticoagulation over the summer after rule out DVT turned out to ana paula Mariano's cyst. With her history of scleroderma she was at increased risk so anticoagulation was continued after discussion with Dr. Albert. Her H and H started to drop was determined she will need to stay off of it. Will continue to monitor. RVISOR DISPLAY FABRICATION * Assessment & Plan Note - Tuyet Kay LPN - 07/01/2024 10:10 AM SUPERVISOR DISPLAY FABRICATION Associated Problem(s): Morbid obesity (HCC) Discussed the patient's BMI. The BMI is above average. BMI management plan is completed. BMI Follow-up includes: nutrition counseling, exercise counseling and education provided. Patient has an obesity-related condition (not limited to: hypertension, obstructive sleep apnea, osteoarthritis, hyperlipidemia, diabetes, etc.). Therefore, morbid obesity may be documented for patients with a BMI between 35.00-39.99. RVISOR DISPLAY FABRICATION RVISOR DISPLAY FABRICATION * Assessment & Plan Note - Tuyet Kay LPN - 07/01/2024 10:10 AM SUPERVISOR DISPLAY FABRICATION Associated Problem(s): BMI 38.0-38.9,adult Discussed the patient's BMI. The BMI is above average. BMI management plan is completed. BMI Follow-up includes: nutrition counseling, exercise counseling and education provided. RVISOR DISPLAY FABRICATION documented in this encounter Plan of Treatment Scheduled Orders Name Type Priority Associated Diagnoses Orde r Schedule Vitamin B12 Lab Routine Low vitamin B12 level Expected: 07/01/2024, Expires: 07/01/2025 documented as of this encounter Visit Diagnoses Diagnosis Annual physical exam- Primary Routine general medical examination at a health care facility Low vitamin B12 level Vasomotor symptoms due to menopause Moderate episode of recurrent major depressive disorder (HCC) Hyperglycemia Other abnormal glucose Essential hypertension Unspecified essential hypertension Vitamin D deficiency Anemia, unspecified type Morbid obesity (HCC) Morbid obesity BMI 38.0-38.9,adult documented in this encounter Administered Medications Active Administered Medications - up to 3 most recent administrations Medication Order MAR Action Action Date Dose Rate Site cyanocobalamin (Vitamin B-12) injection 1,000 mcg 1,000 mcg, intramuscular, Every 30 days, First dose on Sat04/22/24 at 1045Indications:Vitamin B deficiency Given 07/01/2024 10:43 AM SUPERVISOR DISPLAY FABRICATION 1,000 mcg Left Deltoid Given 05/20/2024 9:42 AM CDT 1,000 mcg Ri ght Deltoid Given 04/22/2024 10:06 AM CDT 1,000 mcg L eft Deltoid documented in this encounter Discontinued Medications Medication Sig Discontinue Reason Start Date End Da te venlafaxine XR (EFFEXOR-XR) 75 mg 24 hr capsule TAKE 3 CAPSULES DAILY WITH FOOD (DOSE INCREASE TO 225 MG. STOP 150 MG) 09/02/2023 07/01/2024 documented as of this encounter Historical Medications * This list may reflect changes made after this encounter. aspirin 81 mg enteric coated tablet Take 1 tablet (81 mg total) by mouth daily added in this encounter Care Teams Wood Tile Installer Relationship Specialty Start Date End Date Starr Bran PA [address] [place] [address] PCP - General Internal Medicine 12/30/18 Bibiana Schuler MD [address] [place] [address] Consulting Physician Gastroenterology 05/11/21 Cornelius Garcia DO [address] [place] [address] MEDICAL ONCOLOGY, [address] [address] Medical Oncologist/Hematologis t Hematology and Oncology 09/26/21 Madhu Brito MD [address] [place] [address] Consulting Physician Rheumatology 05/22/23 documented as of this encounter
--- OUTSIDE RECORDS SUMMARY | 2024-07-18 20:25 | XMS_ITS | Encounter Summary ---
Author Organization [facility] Healthcare Address [address] [place] [address] Care Team Providers Care Energy Project Manager Name Role Phone Starr Bran Primary Care Provider [phone] Bibiana Schuler MD Unavailable [phone] Cornelius Garcia DO Unavailable [phone] Madhu Brito MD Unavailable [phone] Encounter Details Date Type Department Care Team (Late st Contact Info) Description 05/11/2024 8:15 AM CDT [facility] at [address] [address] Iron deficiency anemia due to chronic blood loss (Primary Dx) Social History Tobacco Use Types Packs/Day Years Used Date Smoking Tobacco: Never Smokeless Tobacco: Never AUDIT-C Answer Date Recorded Q1: How often do you have a drink containing alc ohol? Monthly or less 11/20/2023 Q2: How many drinks containi ng alcohol do you have on a typical day when you are drinking? 1 or 2 11/20/2023 Q3: How often do you have si x or more drinks on one occasion? Never 11/20/2023 PHQ-2 Answer Date Recorded PHQ-2 Total Score 0 11/20/2023 Personal Safety Answer Date Recorded Getting School Help Needed Not on file 12/08 Comments Unknown Sex and Gender Information Value Date Recorded Sex Assigned at Not on file Legal Sex Female 10:31 AM RIVETING MACHINE OPERATOR AUTOMATIC Gender Identity Female 02/02/2021 7:25 AM CDT Sexual Orientation Straight 02/02/2021 7: 25 AM CDT documented as of this encounter Last Filed Vital Signs Vital Sign Reading Time Taken Comments Blood Pressure 134/83 05/11/2024 10:55 AM CDT Pulse 82 05/11/2024 10:55 AM CDT Temperature 36.8 ??C (98.2 ??F) 05/11/2024 10:55 AM C DT Respiratory Rate 16 05/11/2024 10:55 AM CDT Oxygen Saturation 100% 05/11/2024 10:55 AM CDT Inhaled Oxygen Concentration - - Weight 97.3 kg (214 lb 6.4 oz) 05/11/2024 8:06 A M CDT Height - - Body Mass Index 37.98 03/09/2024 11:38 AM CDT documented in this encounter Nursing Notes * Katie Quintero RN - 05/11/2024 8:15 AM CDT Oncology Nursing Note Blood Product Administration [facility] Viktoriya Bell is a 59 y.o. female who presents for the following transfusion: Blood Pre-treatment Nursing Assessment Nursing Assessment LOC: Alert, Awake Constitutional: Fatigue Fatigue: Occassional Any falls since your last visit?: No Orientation: Oriented x4 Behavior: Calm Speech: Clear Language: No aphasia Vision: At baseline Peripheral Neuropathy: No Oral Mucosa Grade: Normal (0) Pt states has potential to be ?: No Shortness of Breath?: Yes Lungs auscultated PRN: Yes Pt is on oxygen?: No Respiratory Effort Characteristics: Dyspnea exertion Appetite: Fair What diet do you follow at home?: Regular Have You Recently Lost Weight Without Trying?: No Have you been eating poorly because of a decreased appetite?: No Malnutrition Screening Tool (MST) Score: 0 Nausea/Vomiting: No Diarrhea: No Constipation: No Last BM Date: 05/11/24 Skin Condition/Temp: Warm, Dry Swelling: Yes Swelling location: LLE, RLE BP: 134/83 Temp: 36.8 ??C (98.2 ??F) Temp src: Oral Pulse: 82 Resp: 16 SpO2: 100 % Weight: 97.3 kg (214 lb 6.4 oz) Lab Result Lab Results Component Value Date WBC 6.5 05/07/2024 HGB 7.6 (L) 05/07/2024 HCT 25.3 (L) 05/07/2024 MCV 74.9 (L) 05/07/2024 LABPLAT 288 05/07/2024 Lab Results Component Value Date NEUTROABS 5.1 05/07/2024 Patient is within parameters for transfusion. Treatment Consent for transfusion: Active consent noted in patient chart. Prior transfusion reaction: No and No premedications ordered. Pre blood return: Brisk. Transfused patient with 1 unit PRBC per protocol. Viktoriya Bell tolerated transfusion. IV line flushed until clear and patient observed for 15 minutes post transfusion. Post blood return: Brisk. IV access post infusion: NS. Patient Education Instructed on process and procedures related to today's visit including signs and symptoms of transfusion reaction. Response: Verbalizes understanding Discharge Plan Blood product transfusion discharge instructions given to patient. Future appointments given and reviewed with treatment plan. Discharge Mode: Ambulatory Accompanied by: Self Discharged To: Home documented in this encounter Plan of Treatment Not on file documented as of this encounter Procedures Procedure Name Priority Date/Time Associated Diagnosis Comments TRANSFUSE RED BLOOD CELLS Timed 05/11/2024 8:40 AM CDT Iron deficiency anemia due to chronic blood loss PREPARE RBC Routine 05/09/2024 9:59 AM CDT Iron deficiency anemia due to chronic blood loss documented in this encounter Results * Transfuse RBC (05/11/2024 11:10 AM CDT) Blood Cornelius Garcia DO BLOOD TRANSFUSION ORDERABLES Final Result * Transfuse RBC: 1 Units (05/11/2024 11:10 AM CDT) Blood Cornelius Garcia DO BLOOD TRANSFUSION ORDERABLES Final Result * Prepare RBC: 1 Units (05/09/2024 9:59 AM CDT) Units requested 1 Comment:Testing performed by : [facility], [address] [place] [address]., [id number] Units requested Ready LELAND GARCIA Comment:Testing performed by : [facility], [address] [place] [address]., [id number] Unit Number [id number] Product code [id number] LELAND Blood Expiration Date [facility] Product Blood Type (for scanning) [address] [facility] Product Blood Type ABPOS [facility] Dispense Status DISPENSED [facility] Blood 05/09/2024 9:59 AM CDT 05/09/2024 9:59 AM CDT Cornelius Garcia DO BLOOD BANK PRODUCT ORDERABLE S Final Result LELAND [address] [facility] [place] [address] documented in this encounter Visit Diagnoses Diagnosis Iron deficiency anemia due to chronic blood loss- Primary Iron deficiency anemia secondary to blood loss (chronic) documented in this encounter Orders Medications Ordered That Sonido ht Not Have Been Administered Count Last Ordered Date First Ordered Date acetaminophen (TYLENOL) tablet 650 mg 1 sodium chloride 0.9% infusion 1 05/11/2024 Nursing Count Last Ordered Date First Orde red Date ONCBCN NO PREMEDS NEEDED 1 05/11/2024 ONCBCN NURSING COMMUNICATION [id number] 1 ONCBCN VITAL SIGNS/EKG/PK 2 1 05/11/2024 VITAL SIGNS 1 05/11/2024 Appointment Requests Count Last Ordered Date Fi rst Ordered Date ONCBCN BLOOD TRANSFUSION APPT 1 05/11/2024 documented in this encounter Care Teams Energy Project Manager Relationship Specialty Start Date End Date Starr Bran PA [address] [place] [address] PCP - General Internal Medicine 12/30/18 Bibiana Schuler MD [address] [place] [address] Consulting Physician Gastroenterology 05/11/21 Cornelius Garcia DO [address] [place] [address] MEDICAL ONCOLOGY, [address] [address] Medical Oncologist/Hematologis t Hematology and Oncology 09/26/21 Madhu Brito MD [facility] [place] [address] Consulting Physician Rheumatology 05/22/23 documented as of this encounter
--- OUTSIDE RECORDS SUMMARY | 2024-07-18 20:25 | XMS_ITS | Encounter Summary ---
Author Organization [facility] Address [address] [facility] [address] [place] [address] Phone Care Team Providers Care Tile Picker Name Role Phone Starr Bran Primary Care Provider [phone] Bibiana Schuler MD Unavailable [phone] Ani Villafana DO Unavailable Madhu Brito MD Unavailable Reason for Visit * Reason Comments Follow-up Encounter Details Date Type Department Care Team ([facility] st Contact Info) Description 05/07/2024 11:00 AM CDT Office Visit [facility] Oncology [address] [place] [address] [phone] Ani Villafana, DO [address] [place] [id number] Iron deficiency anemia due to chronic blood loss (Primary Dx); History of DVT (deep vein thrombosis); History of pulmonary embolus (PE) Social History Tobacco Use Types Packs/Day Years [...] on file 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 Gender Identity Female 02/02/2021 7:25 AM CDT Sexual Orientation Straight 02/02/2021 7: 25 AM CDT documented as of this encounter Last Filed Vital Signs Vital Sign Reading Time Taken Comments Blood Pressure 130/82 05/07/2024 10:35 AM CDT Pulse 84 05/07/2024 10:35 AM CDT Temperature 37 ??C (98.6 ??F) 05/07/2024 10:35 AM CDT Respiratory Rate 18 05/07/2024 10:35 AM CDT Oxygen Saturation 100% 05/07/2024 10:35 AM CDT Inhaled Oxygen Concentration - - Weight 97.1 kg (214 lb) 05/07/2024 10:35 AM CDT with shoes Height - - Body Mass Index 37.91 03/09/2024 11:38 AM CDT documented in this encounter Progress Notes * Tierra Skelton, JASMIN - 05/07/2024 11:00 AM CDT Patient ID: Viktoriya Bell is a 59 y.o. female. Primary Care Provider: Starr Bran PA Assessment/Plan 1. Resolved iron deficiency anemia. 2. Status post total abdominal hysterectomy with bilateral salpingo oophorectomy 3. Postmenopausal syndrome 4. Recent EGD shows normal esophagus and duodenum. 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 Recommendations: 1. Her hemoglobin is 7.6 today. We will arrange for her to receive IV iron and 1 unit pRBCs. 2. She will contact Dr. Schuler today to schedule an appointment. We will hold [employer] at this time. 3. We will monitor her hemoglobin with weekly CBCs. 4. She will continue follow-up with Rheumatology for Scleroderma. 5. She will return to see us in 6 weeks. Patient Active Problem List Diagnosis Essential hypertension [...] of knee, right Bilateral lower extremity edema Diagnoses and all orders for this visit: Iron deficiency anemia due to chronic blood loss (Primary) - Clinic Appointment Request Follow up; ANI VILLAFANA MD; Clinic Appointment Location: [facility] 180 - Type and screen; Future - Blood Transfusion Appt Request # of Units? 1 Unit; Ordering location: IM Onc/Hem/BMT; Treatment location: [facility]; Future - Reticulocyte Count; Future - Lab Draw Appt Request Arm Draw or Central Line Draw? Arm; Ordering location: IM Onc/Hem/BMT; Treatment location: [facility]; Standing - Recurring Infusion Appointment ([facility]) 4 HR; Treatment location: [facility]; Standing - CBC with auto differential; Standing - Type and screen; Future - Clinic Appointment Request Follow up; ANI VILLAFANA MD; Clinic Appointment Location: [place] [address]; Future - Ferritin; Future - Iron profile w/ IBC; Future History of DVT (deep vein thrombosis) - Clinic Appointment Request Follow up; ANI VILLAFANA MD; Clinic Appointment Location: [place] [address] History of pulmonary embolus (PE) - Clinic Appointment Request Follow up; ANI VILLAFANA MD; Clinic Appointment Location: [place] [address] Other orders - acetaminophen (TYLENOL) tablet 650 mg - sodium chloride 0.9% infusion - sodium chloride 0.9% flush 10 mL - diphenhydrAMINE (BENADRYL) 50 mg/mL injection 25 mg - famotidine (PEPCID) injection 20 mg - meperidine (DEMEROL) preservative free injection 25 mg - furosemide (LASIX) 10 mg/mL injection 20 mg - diphenhydrAMINE (BENADRYL) 50 mg/mL injection 50 mg - methylPREDNISolone sodium succinate (SOLU-medrol) preservative free injection 125 mg - famotidine (PEPCID) injection 20 mg - EPINEPHrine 0.3 mg/0.3 mL syringe 0.3 mg - sodium chloride 0.9% bolus 500 mL - ferric carboxymaltose (INJECTAFER) 750 mg in sodium chloride 0.9% 250 mL IVPB - sodium chloride 0.9% flush 10 mL - diphenhydrAMINE (BENADRYL) 50 mg/mL injection 25 mg - famotidine (PEPCID) injection 20 mg - meperidine (DEMEROL) preservative free injection 25 mg - diphenhydrAMINE (BENADRYL) 50 mg in sodium chloride 0.9% 50 mL IVPB - methylPREDNISolone sodium succinate (SOLU-medrol) preservative free injection 125 mg - famotidine (PEPCID) injection 20 mg - EPINEPHrine 0.3 mg/0.3 mL syringe 0.3 mg - sodium chloride 0.9% bolus 500 mL Subjective Interval History: A. Iron deficiency anemia. B. vitamin B12 deficiency C. Bilateral pulmonary emboli with thrombosis of the right lower extremity History as follows: 1. In 2019, she was diagnosed with iron deficiency anemia. 2. Patient received iron sucrose on 2 separate occasions-May 15 and May 22, 2020. 3. Hemoglobin has greatly improved up to 11.4. 4. Patient is receiving bimonthly vitamin B12 injections at 1000 micro g IM through her PCP. 5. In October 2020, she was diagnosed with bilateral pulmonary emboli and DVT of the right leg. She was placed on anticoagulation with Eliquis 5 mg b.i.d.. This was discontinued late last year. 6. 2021: she continued to be on iron supplementation once a day. 7. Her air quality engineer performed laparoscopic hysterectomy with bilateral salpingo oophorectomy in early July this year. She did have severe vasomotor symptoms and postmenopausal syndrome. Patient was placed on venlafaxine and this has been increased. 8. 02/06/2024 visit: She returns for follow-up. She continues care with Rheumatology for Sclerodermaand continues on Cellcept. She states she is feeling pretty good most of the time. She continues tohave episodes of mild dyspnea after exertion. She had CXR, ECHO, and PFT done with Rheumatology andall were essentially normal. It was decided after discussion between her PCP and Dr Villafana that she would be restarted on Eliquis for her history of PE/DVT and now with new diagnosis of Sclerodermaas she could be at risk for blood clots. She had an incident a few weeks back where she thought shehad a DVT but it was a Mariano's cyst. She just restarted the Eliquis yesterday. She will monitor forany s/s of bleeding. 10. Ms. Bell returns today for follow up. She is reporting increased fatigue, SOB with exertion, andpalpitations. She is also reporting BLE edema. She denies signs of bleeding including blood in her urine and stool, epistaxis, and bleeding gums. She continues with eliquis 2.5 mg BID for her historyof DVT. Interval Notes: I have reviewed: allergies, current medications, past family history, past medical history, past social history, past surgical history and problem list HPI Review of Systems All other systems reviewed and are negative. Objective Physical Exam: Vital Signs for this encounter: BSA: 2.08 meters squared BP 130/82 (BP Location: Left arm) Pulse 84 Temp 37 ??C (98.6 ??F) (Oral) Resp 18 Wt 97.1 kg(214 lb) Comment: with shoes SpO2 100% BMI 37.91 kg/m?? Physical Exam Constitutional: Appearance: Normal appearance. HENT: Head: Normocephalic and atraumatic. Right Ear: External ear normal. Left Ear: External ear normal. Nose: Nose normal. Mouth/Throat: Mouth: Mucous membranes are moist. Pharynx: Oropharynx is clear. Eyes: Extraocular Movements: Extraocular movements intact. Cardiovascular: Rate and Rhythm: Normal rate and regular rhythm. Heart sounds: Normal heart sounds. Pulmonary: Effort: Pulmonary effort is normal. Breath sounds: Normal breath sounds. Abdominal: Palpations: Abdomen is soft. Musculoskeletal: General: Normal range of motion. Cervical back: Normal range of motion. Skin: General: Skin is warm and dry. Neurological: General: No focal deficit present. Mental Status: She is alert and oriented to person, place, and time. Psychiatric: Mood and Affect: Mood normal. Behavior: Behavior normal. Performance Status: Asymptomatic Results: WBC Date Value Ref Range Status 05/07/2024 6.5 3.8 - 9.9 K/cumm Final Comment: Testing performed by: [address] [id number] 12/09/2023 5.8 3.8 - 10.8 Thousand/uL Final 05/02/2023 3.8 3.4 - 10.8 x10E3/uL Final Hgb Date Value Ref Range Status 05/07/2024 7.6 (L) 11.9 - 15.5 g/dL Final Comment: Testing performed by: [address] [address] 12/09/2023 10.9 (L) 11.7 - 15.5 g/dL Final 05/02/2023 10.5 (L) 11.1 - 15.9 g/dL Final Hct Date Value Ref Range Status 05/07/2024 25.3 (L) 35.6 - 45.5 % Final Comment: Testing performed by: [address] [address] 12/09/2023 33.0 (L) 35.0 - 45.0 % Final 05/02/2023 31.7 (L) 34.0 - 46.6 % Final Platelets Date Value Ref Range Status 12/09/2023 264 140 - 400 Thousand/uL Final 05/02/2023 214 150 - 450 x10E3/uL Final Plt Date Value Ref Range Status 05/07/2024 288 150 - 400 K/cumm Final Comment: Testing performed by: [address] [address] Creatinine Date Value Ref Range Status 03/09/2024 0.68 0.50 - 1.05 mg/dL Final Creatinine, Serum Date Value Ref Range Status 05/02/2023 0.65 0.57 - 1.00 mg/dL Final AST Date Value Ref Range Status 03/09/2024 12 10 - 35 U/L Final 05/02/2023 16 0 - 40 IU/L Final documented in this encounter Miscellaneous Notes * Addendum Note - Travis Turner RN - 05/07/2024 11:00 AM CDTAddended by: TRAVIS TURNER on: 05/08/2024 10:08 AM Modules accepted: Orders documented in this encounter Plan of Treatment Not on file documented as of this encounter Results * (ABNORMAL) Iron profile w/ IBC (06/18/2024 8:04 AM NUTRITION SERVICES WORKER) Iron 49 35 - 145 mcg/dL Comment:Testing performed by : [address] [address] TIBC 375 250 - 400 mcg/dL [place] Comment:Testing performed by : [address], [address] Transferrin saturation 13(L) 20 - 50 % [place] Comment:Testing performed by : [address], [address] Blood 06/18/2024 8:04 AM NUTRITION SERVICES WORKER 06/18/2024 9:50 AM NUTRITION SERVICES WORKER Ani Villafana DO LAB BLOOD ORDERABLES Final R esult Performing Organization Address City/[facility]/ZIP Co de Phone Number [place] [address] [facility] Department of Laboratories [place], [place] [id number] * Ferritin (06/18/2024 8:04 AM NUTRITION SERVICES WORKER) Ferritin 29 15 - 150 ng/mL Comment:Testing performed by : [address] [address] Blood 06/18/2024 8:04 AM NUTRITION SERVICES WORKER 06/18/2024 9:50 AM NUTRITION SERVICES WORKER Ani Villafana DO LAB BLOOD ORDERABLES Final R esult [place] [facility] Department [place] [address] * (ABNORMAL) Reticulocyte Count (05/07/2024 10:13 AM CDT) Retics, absolute 0.063 0.020 - 0.087 M/cumm Comment:Testing performed by : [address] [address] Retics 1.9 0.4 - 2.9 % [place] Comment:Testing performed by : [address] [address] Reticulocyte Hgb 16.9(L) 30.5 - 38.0 pg [place] Comment:Testing performed by : [address] [address] Blood 05/07/2024 10:1 3 AM CDT 05/07/2024 11:16 AM CDT Ani Villafana DO LAB BLOOD ORDERABLES Final R esult [place] [address] [facility] [place] [address] documented in this encounter Visit Diagnoses Diagnosis Iron deficiency anemia due to chronic blood loss- Primary Iron deficiency anemia secondary to blood loss (chronic) History of DVT (deep vein thrombosis) History of pulmonary embolus (PE) documented in this encounter Discontinued Medications Medication Sig Discontinue Reason Start Date End Da te apixaban (Eliquis) 2.5 mg tabletIndications:Histor y of DVT (deep vein thrombosis) Take 1 tablet (2.5 mg total) by mouth 2 (two) times a day Therapy completed 01/28/2024 05/07/2024 aspirin 81 mg enteric coated tablet Take 1 tablet (81 mg total) by mouth daily Therapy completed 05/07/2024 documented as of this encounter Orders Appointment Requests Count Last Ordered Date Fi rst Ordered Date ONCBCN CLINIC APPOINTMENT REQUEST 2 024 05/07/2024 ONCBCN LAB APPOINTMENT 6 06/18/202405/14 ONCBCN [facility] RECURRING INFUSI ON APPT REQUEST 2 05/21/2024 05/14/2024 ONCBCN BLOOD TRANSFUSION APPT 1 05/11/2024 documented in this encounter Care Teams Tile Picker Relationship Specialty Start Date End Date Starr Bran PA [address] [place] [address] PCP - General Internal Medicine 12/30/18 Bibiana Schuler MD [address] [place] [address] Consulting Physician Gastroenterology 05/11/21 Ani Villafana DO [address] [place] [address] MEDICAL ONCOLOGY, [address] [place] [address] Medical Oncologist/Hematologis t Hematology and Oncology 09/26/21 Madhu Brito MD [address] [place] [address] Consulting Physician Rheumatology 05/22/23 documented as of this encounter
--- OUTSIDE RECORDS SUMMARY | 2024-07-18 20:25 | XMS_ITS | Encounter Summary ---
Author Organization [facility] Address [address] [place] [address] Phone Care Team Providers Care Change Manager Name Role Phone Starr Bran Primary Care Provider [phone] Bibiana Schuler MD Unavailable [phone] Cornelius Garcia DO Unavailable [phone] Madhu Brito MD Unavailable [phone] Encounter Details Date Type Department Care Team (Late st Contact Info) Description 03/09/2024 11:30 AM CDT Office Visit [facility] [address] [place] [address] Jing Erwin PA [address] [place] [address] Systemic sclerosis (HCC) (Primary Dx); PHAN (dyspnea on exertion); Arthralgia of right hand; longterm current use of therapeutic drug; Bilateral lower extremity edema Social History Tobacco Use Types Packs/Day Years [...] on file 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 Gender Identity Female 02/02/2021 7:25 AM CDT Sexual Orientation Straight 02/02/2021 7: 25 AM CDT documented as of this encounter Last Filed Vital Signs Vital Sign Reading Time Taken Comments Blood Pressure 144/82 03/09/2024 11:38 AM CDT Pulse 90 03/09/2024 11:38 AM CDT Temperature - - Respiratory Rate - - Oxygen Saturation 97% 03/09/2024 11: 38 AM CDT Inhaled Oxygen Concentration - - Weight 95.6 kg (210 lb 12.8 oz) 024 11:38 AM CDT Height 160 cm (5' 3 ) 03/09/2024 11:38 AM CDT Body Mass Index 37.34 03/09/2024 11:38 AM CDT documented in this encounter Ordered Prescriptions Prescription Sig Dispense Quantity Refills Last Filled Start Date End Date mycophenolate mofetil (CELLCEPT) 500 mg tablet Take 2 tablets (1,000 mg total) by mouth 2 (two) times a day 360 tablet 03/09/2024 documented in this encounter Progress Notes * Jing Erwin PA - 03/09/2024 11:30 AM CDT Subjective/Objective Patient ID: Viktoriya Bell is a 59 y.o. female. Chief Complaint SSc HPI Returns for routine follow up. Has not been having much hand pain since last visit. Still with swelling in the mornings but not stiff. Notes swelling in the lower legs and skin feels tight and itchy. Wears compression stockings in thewinter sometimes. Still in menopause and gets hot flashes so avoids at this time as it just makes her more hot. Doing B12 shots and follows with heme. Iron levels are normal. Restarted eliquis. Notes dyspnea with exertion. Walked 1 mile this weekend and felt short of breath. 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 Denies fevers, infections, rashes, mouth sores, cough, n/v. Joint pain today is 3 /10. AM stiffness = few minutes Review of Systems Constitutional: Positive for fatigue. Negative for chills and fever. HENT: Negative for congestion and mouth sores. Respiratory: Negative for cough and shortness of breath. Cardiovascular: Negative for chest pain. Gastrointestinal: Negative for abdominal pain, diarrhea, nausea and vomiting. Musculoskeletal: Positive for arthralgias. Negative for myalgias. Skin: Negative for rash. Vitals: Vitals BP 144/82 Pulse 90 Ht 160 cm (5' 3 ) Wt 95.6 kg (210 lb 12.8 oz) SpO2 97% BMI 37.34 kg/m?? Body mass index is 37.34 kg/m??. Bold X is a current medication. [...] are normal. Pupils are equal and round. Cardiovascular: BLE pitting edema. Pulmonary/Chest: Effort normal. Musculoskeletal: See cdai. Neurological: alert and oriented to person, place, and time. Skin: Skin is warm and dry. No rash noted. No sclerodactyly or telangiectasias. Psychiatric: normal mood and affect. speech is normal and behavior is normal. Cognition and memory are normal. Patient Global: 30 / 100 Provider Global: 30 / 100 CDAI: 8 In remission: 0-3 Low: 4-10 Moderate: 11-22 High: 23 or > Labs Lab Results Component Value Date WBC 5.1 02/06/2024 HGB 11.0 (L) 02/06/2024 HCT 34.3 (L) 02/06/2024 MCV 84.5 02/06/2024 Lab Results Component Value Date GLUCOSE 118 (H) 12/09/2023 CALCIUM 9.2 12/09/2023 SODIUM 142 12/09/2023 POTASSIUM 4.1 12/09/2023 CO2 26 12/09/2023 CHLORIDE 106 12/09/2023 BUNSER 10 12/09/2023 CREATININE 0.65 12/09/2023 Lab Results Component Value Date ALT 11 12/09/2023 AST 12 12/09/2023 ALKPHOS 66 12/09/2023 BILITOT 0.2 12/09/2023 Lab Results Component Value Date SEDRATE 9 12/09/2023 Lab Results Component Value Date CRP 10.8 (H) 12/09/2023 LABS: 05/18/23: Negative LAC, negative ALEXA, CRP 0.29mg/dL, ESR 6, Hep panel negative AVISE 05/18/23: +AMINA 1:2560 centromere, CENP >240, RF IgM 20, normal C3/4 04/2023: RBC 3.58, Hgb 10.5, Hct 31.7, B12 479, TIBC 303, UIBC 264, iron 39, iron sat 13 % (L), HgA1c 4.9%, lipid panel nl, CMP nl, TSH 1.70, +AMINA >1:1280 centromere 02/2023: +AMINA, dsDNA <1, HUMAN SERVICE COORDINATOR <0.2, SM <0.2, SS-A <0.2, SS-B <0.2 [...] Orders: - Comprehensive metabolic panel; Future - CRP (acute phase); Future - Erythrocyte sedimentation rate; Future PHAN (dyspnea on exertion) Assessment & [...] any signs to suggest an inflammatory arthritis. longterm current use of therapeutic drug - Comprehensive metabolic panel; Future Bilateral lower extremity edema Assessment & Plan: Recommend compression stockings and elevating legs while sitting. BP slightly elevated today but she notes this is normally well controlled. Other orders - mycophenolate mofetil (CELLCEPT) 500 mg tablet; Take 2 tablets (1,000 mg total) by mouth 2 (two) times a day Jign Erwin PA-C Cosigned by Madhu Birto MD at 03/12/2024 6:57 AM CDT documented in this encounter Miscellaneous Notes * Assessment & Plan Note - Jing Erwin PA - 03/09/2024 12:05 PM CDTAssociated Problem(s): Bilateral lower extremity edema Recommend compression stockings and elevating legs while sitting. BP slightly elevated today but she notes this is normally well controlled. * Assessment & Plan Note - Jing Erwin PA - 03/09/2024 12:02 PM CDTAssociated Problem(s): Systemic sclerosis (HCC) 59-year-old female with [...] up in 3 months. Sooner if needed. * Assessment & Plan Note - Jing Erwin PA - 03/09/2024 11:49 AM CDTAssociated Problem(s): Arthralgia Elevated RF (20) on AVISE. C/o pain and AM swelling/stiffness in the hands (R>L) that appears tohave progressed so repeated R hand/wrist US (11/2023) that did not show any signs to suggest an inflammatory arthritis. * Assessment & Plan Note - Jing Erwin PA - 03/09/2024 11:41 AM CDTAssociated Problem(s): PHAN (dyspnea on exertion) CXR unremarkable. Baseline PFT and TTE are unremarkable for signs of PAH. Grade 1 diastolic dysfunction noted on TTE but this was also seen on past TTE in 2020. PFT showed only mildly reduced diffusecapacity. Continues to note PHAN so will monitor symptoms. Should this progress, consider repeating PFT. documented in this encounter Plan of Treatment Not on file documented as of this encounter Procedures Procedure Name Priority Date/Time Associated Diagnosis Comments ERYTHROCYTE SEDIMENTATION RATE Routine 03/09/2024 12:13 PM CDT Systemic sclerosis (HCC) CRP (ACUTE PHASE) Routine 03/09/2024 12: 13 PM CDT Systemic sclerosis (HCC) COMPREHENSIVE METABOLIC PANEL Routine 03/09/2024 12:13 PM CDT Systemic sclerosis (HCC) longterm current use of therapeutic drug documented in this encounter Results * Erythrocyte sedimentation rate (03/09/2024 12:13 PM CDT) Erythrocyte sedimentation rate 9 < OR = 30 mm/h [facility] Blood 03/09/2024 12:1 3 PM CDT 03/09/2024 12:14 PM CDT us Jing SALVADOR LAB BLOOD ORDERABLES Final Result Performing Organization Address [facility]/ZIP Co de Phone Number [facility] [address] [place] [address] * CRP (acute phase) (03/09/2024 12:13 PM CDT) C-RP <3.0 <8.0 mg/L [facility] Blood 03/09/2024 12:1 3 PM CDT 03/09/2024 12:14 PM CDT Jing SALVADOR LAB BLOOD ORDERABLES Final Result Performing Organization Address [facility]/ZIP Co de Phone Number [facility] [address] [place] [address] * (ABNORMAL) Comprehensive metabolic panel (03/09/2024 12:13 PM CDT) [facility] Glucose 100(H) 65 - 99 mg/dL [facility] Comment: ? Fasting reference interval For someone without known diabetes, a glucose value between 100 and 125 mg/dL is consistent with prediabetes and should be confirmed with a follow-up test. BUN 14 7 - 25 mg/dL [facility] Creatinine 0.68 0.50 - 1.05 mg/dL [facility] eGFR 100 > OR = 60 mL/min/1.7 3m2 [facility] BUN/creat ratio SEE NOTE: 6 - 22 (calc) [facility] Comment: ?? Not Reported: BUN and Creatinine are within ?? reference range. ? Sodium 142 135 - 146 mmol/L [facility] Potassium, pl 4.1 3.5 - 5.3 mmol/L [facility] Chloride 107 98 - 110 mmol/L [facility] CO2 24 20 - 32 mmol/L [facility] Calcium 9.5 8.6 - 10.4 mg/dL [facility] Protein, sr 6.5 6.1 - 8.1 g/dL [facility] Albumin 4.2 3.6 - 5.1 g/dL [facility] GLOBULIN 2.3 1.9 - 3.7 g/dL (calc) [facility] Alb/glob ratio 1.8 1.0 - 2.5 (calc) [facility] Bilirubin, total 0.3 0.2 - 1.2 mg/dL [facility] Alk phos 73 37 - 153 U/L [facility] AST 12 10 - 35 U/L [facility] ALT (SGPT) 11 6 - 29 U/L [facility] Blood 03/09/2024 12:1 3 PM CDT 03/09/2024 12:14 PM CDT Jing SALVADOR LAB BLOOD ORDERABLES Final Result [facility] [address] [place] [address] documented in this encounter Visit Diagnoses Diagnosis Systemic sclerosis (HCC)- Primary Systemic sclerosis PHAN (dyspnea on exertion) Other dyspnea and respiratory abnormality Arthralgia of right hand longterm current use of therapeutic drug Bilateral lower extremity edema documented in this encounter Discontinued Medications Medication Sig Discontinue Reason Start Date End Da te mycophenolate mofetil (CELLCEPT) 500 mg tablet TAKE 2 TABLETS(1000 MG) BY MOUTH TWICE DAILY Reorder 01/13/2024 03/09/2024 documented as of this encounter Care Teams Change Manager Relationship Specialty Start Date End Date Starr Bran PA [address] [place] [address] PCP - General Internal Medicine 12/30/18 Bibiana Schuler MD [address] [place] [address] Consulting Physician Gastroenterology 05/11/21 Cornelius Garcia DO [address] [place] [address] MEDICAL ONCOLOGY, [facility] [address] [place] [address] Medical Oncologist/Hematologis t Hematology and Oncology 09/26/21 Madhu Brito MD [address] [place] [address] Consulting Physician Rheumatology 05/22/23 documented as of this encounter
--- OUTSIDE RECORDS SUMMARY | 2024-07-18 20:25 | XMS_ITS | Encounter Summary ---
Author Organization [facility] Healthcare Address [address] [place] [address] Care Team Providers Care Sales Agent Financial Report Service Name Role Phone Starr Bran Primary Care Provider [phone] Bibiana Schuler MD Unavailable [phone] Cornelius Garcia DO Unavailable [phone] Madhu Brito MD Unavailable [phone] Reason for Visit * Reason Comments B12 Injection Encounter Details Date Type Department Care Team (Late st Contact Info) Description 05/20/2024 9:30 AM CDT Clinical Support [facility] Family Medicine [address] [address] Social History Tobacco Use Types Packs/Day Years [...] on file 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 Gender Identity Female 02/02/2021 7:25 AM CDT Sexual Orientation Straight 02/02/2021 7: 25 AM CDT documented as of this encounter Plan of Treatment Not on file documented as of this encounter Visit Diagnoses Not on filedocumented in this encounter Administered Medications Active Administered Medications - up to 3 most recent administrations Medication Order MAR Action Action Date Dose Rate Site cyanocobalamin (Vitamin B-12) injection 1,000 mcg 1,000 mcg, intramuscular, Every 30 days, First dose on Sat04/22/24 at 1045Indications:Vitamin B deficiency Given 07/01/2024 10:43 AM SUPERVISING LAW ENFORCEMENT ANALYST 1,000 mcg Left Deltoid Given 05/20/2024 9:42 AM CDT 1,000 mcg Ri ght Deltoid Given 04/22/2024 10:06 AM CDT 1,000 mcg L eft Deltoid documented in this encounter Care Teams Sales Agent Financial Report Service Relationship Specialty Start Date End Date Starr Bran PA [address] [place] [address] PCP - General Internal Medicine 12/30/18 Bibiana Schuler MD [address] [place] [address] Consulting Physician Gastroenterology 05/11/21 Cornelius Garcia DO [address] [place] [address] MEDICAL ONCOLOGY, [address] [place] [address] Medical Oncologist/Hematologis t Hematology and Oncology 09/26/21 Madhu Brito MD [address] [place] [address] Consulting Physician Rheumatology 05/22/23 documented as of this encounter
--- OUTSIDE RECORDS SUMMARY | 2024-07-18 20:25 | XMS_ITS | Encounter Summary ---
Author Organization [facility] Healthcare Address [address] [place] [address] Care Team Providers Care Certified Nursing Assistant Name Role Phone Starr Bran Primary Care Provider [phone] Bibiana Schuler MD Unavailable [phone] Cornelius Garcia DO Unavailable [phone] Madhu Brito MD Unavailable [phone] Reason for Visit * Reason Comments OP Infusion * Episode Based Medications (Routine) - Closed Specialty Diagnoses / Procedures Referred By Hung gao Referred To Contact Diagnoses Iron deficiency anemia due to chronic blood loss Cornelius Garcia DO [address] [place] [address] Phone: tel: fax: [facility] at [address] [address] Phone: tel: fax: Referral ID Status Reason Start Date Expiration Date Visits Re quested Visits Authorized [id number] Closed 05/08/2024 11/03/2024 1 30 Encounter Details Date Type Department Care Team (Late st Contact Info) Description 05/21/2024 8:15 AM CDT Infusion [facility] at [address] [address] Iron deficiency anemia due to [...] on file 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 Gender Identity Female 02/02/2021 7:25 AM CDT Sexual Orientation Straight 02/02/2021 7: 25 AM CDT documented as of this encounter Last Filed Vital Signs Vital Sign Reading Time Taken Comments Blood Pressure 131/90 05/21/2024 9:23 AM CDT Pulse 77 05/21/2024 9:23 AM CDT Temperature 36.7 ??C (98.1 ??F) 05/21/2024 9 :23 AM CDT Respiratory Rate 18 05/21/2024 9:23 AM CDT Oxygen Saturation 98% 05/21/2024 9:2 3 AM CDT Inhaled Oxygen Concentration - - Weight 97.8 kg (215 lb 9.6 oz) 05/21/20 8:04 AM CDT with shoes Height - - Body Mass Index 38.19 03/09/2024 11:38 AM CDT documented in this encounter Nursing Notes * Miley Adams, ZACK - 05/21/2024 8:15 AM CDT Oncology Nursing Note [facility] Viktoriya Bell is a 59 y.o. female who presents for ferric gluconate Pre-treatment Nursing Assessment Nursing Assessment LOC: Alert, Awake Constitutional: Fatigue Fatigue: Occassional Any falls since your last visit?: No Orientation: Oriented x4 Behavior: Calm Speech: Clear Language: No aphasia Vision: At baseline Peripheral Neuropathy: Yes (hands, scleroderma) Oral Mucosa Grade: Normal (0) Pt states has potential to be ?: No Shortness of Breath?: Yes (with activity) Lungs auscultated PRN: No Pt is on oxygen?: No Appetite: Fair Nausea/Vomiting: No Diarrhea: No Constipation: No Last BM Date: 05/21/24 Skin Condition/Temp: Warm, Dry Swelling: Yes Swelling location: LLE, RLE, LUE, RUE Additional Notes: Encounter Vitals BP: 131/90 (05/21/2024 9:23 AM) Pulse: 77 (05/21/2024 9:23 AM) Resp: 18 (05/21/2024 9:23 AM) Temp: 36.7 ??C (98.1 ??F) (05/21/2024 9:23 AM) Temp src: Oral (05/21/2024 9:23 AM) SpO2: 98 % (05/21/2024 9:23 AM) Weight: 97.8 kg (215 lb 9.6 oz) (with shoes) (05/21/2024 8:04 AM) Pain Score: 0 - No pain Treatment Patient: met treatment parameters Pre blood return: Jeferson Bell tolerated treatment well. Patient was frequently observed and monitored throughout the administration of their treatment. Additional Notes: Post blood return: Brisk IV access post infusion: NS Patient Education Treatment Education: Information/teaching given to patient including signs and symptoms of infection, bleeding, adverse reaction, and when to notify MD Response: Verbalizes understanding Discharge Plan Discharge instructions given to patient. Future appointments given and reviewed with treatment plan. Discharge Mode: Ambulatory Accompanied by: Self Discharged To: Home documented in this encounter Plan of Treatment Not on file documented as of this encounter Visit Diagnoses Diagnosis Iron deficiency anemia due to chronic blood loss- Primary Iron deficiency anemia secondary to blood loss (chronic) documented in this encounter Administered Medications Inactive Administered Medications - up to 3 most recent administrations Medication Order MAR Action Action Date Dose Rate Site ferric gluconate (FERRLECIT) 125 mg of elemental iron in sodium chloride 0.9% 100 mL IVPB 125 mg of elemental iron, intravenous, at 120 mL/hr, Administer over 60 Minutes, Once, On Daphne 05/21/24 at 0900, For 1 doseIndications:Iron deficiency anemia due to chronic blood loss New Bag 05/21/2024 8:50 AM CDT 125 mg of elemental iron 120 mL/hr documented in this encounter Orders Nursing Count Last Ordered Date First Orde red Date VITAL SIGNS 1 05/21/2024 Appointment Requests Count Last Ordered Date Fi rst Ordered Date ONCBCN STMN RECURRING INFUSI ON APPT REQUEST 1 05/21/2024 documented in this encounter Care Teams Certified Nursing Assistant Relationship Specialty Start Date End Date Starr Bran PA [address] [place] [address] PCP - General Internal Medicine 12/30/18 Bibiana Schuler MD [address] [place] [address] Consulting Physician Gastroenterology 05/11/21 Cornelius Garcia DO [address] [place] [address] MEDICAL ONCOLOGY, [address] [place] [address] Medical Oncologist/Hematologis t Hematology and Oncology 09/26/21 Madhu Brito MD [address] [place] [address] Consulting Physician Rheumatology 05/22/23 documented as of this encounter
--- OUTSIDE RECORDS SUMMARY | 2024-07-18 20:25 | XMS_ITS | Encounter Summary ---
Author Organization [facility] Healthcare Address [address] [place] [address] Care Team Providers Care Retail Aide Name Role Phone Starr Bran Primary Care Provider [phone] Bibiana Schuler MD Unavailable [phone] Cornelius Garcia DO Unavailable Madhu Brito MD Unavailable [phone] Encounter Details Date Type Department Care Team (Late st Contact Info) Description 05/07/2024 [facility] at [address] [id number] Cornelius Garcia, DO [address] [place] [id number] Social History Tobacco Use Types Packs/Day Years [...] on file 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 Gender Identity Female 02/02/2021 7:25 AM CDT Sexual Orientation Straight 02/02/2021 7: 25 AM CDT documented as of this encounter Plan of Treatment Not on file documented as of this encounter Visit Diagnoses Not on filedocumented in this encounter Care Teams Retail Aide Relationship Specialty Start Date End Date Starr Bran PA [address] [place] [address] PCP - General Internal Medicine 12/30/18 Bibiana Schuler MD [address] [place] [address] Consulting Physician Gastroenterology 05/11/21 Cornelius Garcia DO [address] [place] [address] MED[facility]COL[facility]Y, [facility] [address] [place] [address] Medical Oncologist/Hematologis t Hematology and Oncology 09/26/21 Madhu Brito MD [address] [place] [address] Consulting Physician Rheumatology 05/22/23 documented as of this encounter
--- OUTSIDE RECORDS SUMMARY | 2024-07-18 20:25 | XMS_ITS | Encounter Summary ---
Author Organization [facility] Healthcare Address [address] [place] [address] Care Team Providers Care Neurology Epilepsy Physician Name Role Phone Starr Bran Primary Care Provider [phone] Bibiana Schuler MD Unavailable [phone] Cornelius Garcia DO Unavailable [phone] Madhu Brito MD Unavailable [phone] Reason for Visit * Reason Comments vitamin b 12 injection Encounter Details Date Type Department Care Team (Latest Contact Info) Description 03/18/2024 8:00 AM CDT Clinical Support [facility] Medical Group Family Medicine [address] [address] B12 deficiency (Primary Dx) Social History Tobacco Use Types [...] on file 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 Gender Identity Female 02/02/2021 7:25 AM CDT Sexual Orientation Straight 02/02/2021 7: 25 AM CDT documented as of this encounter Plan of Treatment Not on file documented as of this encounter Visit Diagnoses Diagnosis B12 deficiency- Primary documented in this encounter Administered Medications Active Administered Medications - up to 3 most recent administrations Medication Order MAR Action Action Date Dose Rate Site cyanocobalamin (Vitamin B-12) injection 1,000 mcg 1,000 mcg, intramuscular, Every 30 days, First dose on Sat03/18/24 at 0900Indications:B12 deficiency Given 03/18/2024 8:16 AM CDT 1,000 mcg Left Deltoid documented in this encounter Care Teams Neurology Epilepsy Physician Relationship Specialty Start Date End Date Starr Bran PA [address] [place] [address] PCP - General Internal Medicine 12/30/18 Bibiana Schuler MD [address] [place] [address] Consulting Physician Gastroenterology 05/11/21 Cornelius Garcia DO [address] [place] [address] MEDICAL ONCOLOGY, [facility] [address] [place] [address] Medical Oncologist/Hematologis t Hematology and Oncology 09/26/21 Madhu Brito MD [address] [place] [address] Consulting Physician Rheumatology 05/22/23 documented as of this encounter
--- OUTSIDE RECORDS SUMMARY | 2024-07-18 20:25 | XMS_ITS | Encounter Summary ---
Author Organization [facility] Healthcare Address [address] [place] [address] Care Team Providers Care Barrel Filler Head Name Role Phone Starr Bran Primary Care Provider [phone] Bibiana Schuler MD Unavailable [phone] Cornelius Garcia DO Unavailable [phone] Madhu Brito MD Unavailable [phone] Reason for Visit * Reason Comments OP Infusion * Episode Based Medications (Routine) - Closed Specialty Diagnoses / Procedures Referred By Hung gao Referred To Contact Diagnoses Iron deficiency anemia due to chronic blood loss Cornelius Garcia DO [address] [place] [address] Phone: tel: fax: [facility] at [address] [address] Phone: tel: fax: Referral ID Status Reason Start Date Expiration Date Visits Re quested Visits Authorized [id number] Closed 05/08/2024 11/03/2024 1 30 Encounter Details Date Type Department Care Team (Late st Contact Info) Description 05/14/2024 8:45 AM CDT Infusion [facility] at [address] [phone] Iron deficiency anemia due to [...] on file 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 Gender Identity Female 02/02/2021 7:25 AM CDT Sexual Orientation Straight 02/02/2021 7: 25 AM CDT documented as of this encounter Last Filed Vital Signs Vital Sign Reading Time Taken Comments Blood Pressure 118/74 05/14/2024 10:31 AM CDT Pulse 78 05/14/2024 9:36 AM CDT Temperature 36.8 ??C (98.2 ??F) 05/14/2024 8 :18 AM CDT Respiratory Rate 16 05/14/2024 9:36 AM CDT Oxygen Saturation 98% 05/14/2024 9:3 6 AM CDT Inhaled Oxygen Concentration - - Weight 96.8 kg (213 lb 6.4 oz) 05/14/20 8:18 AM CDT with shoes Height - - Body Mass Index 37.8 03/09/2024 11:38 AM CDT documented in this encounter Nursing Notes * Ladi Davenport, RN - 05/14/2024 8:45 AM CDT Oncology Nursing Note [facility] Viktoriya Bell is a 59 y.o. female who presents for treatment #1 of Ferrlecit. Pre-treatment Nursing Assessment Nursing Assessment LOC: Alert Constitutional: Fatigue Fatigue: Occassional Any falls since your last visit?: No Orientation: Oriented x4 Behavior: Calm Speech: Clear Language: No aphasia Vision: At baseline Peripheral Neuropathy: No Oral Mucosa Grade: Normal (0) Shortness of Breath?: Yes Respiratory Effort Characteristics: Dyspnea exertion Appetite: Fair Nausea/Vomiting: No Diarrhea: No Constipation: No Skin Condition/Temp: Warm, Dry Swelling: Yes (bilateral lower legs off and on) Encounter Vitals BP: 118/74 (05/14/2024 10:31 AM) Pulse: 78 (05/14/2024 9:36 AM) Resp: 16 (05/14/2024 9:36 AM) Temp: 36.8 ??C (98.2 ??F) (05/14/2024 8:18 AM) Temp src: Oral (05/14/2024 8:18 AM) SpO2: 98 % (05/14/2024 9:36 AM) Weight: 96.8 kg (213 lb 6.4 oz) (with shoes) (05/14/2024 8:18 AM) Pain Score: 0 - No pain Treatment Patient: does not require labs today. Pre blood return: Jeferson Bell tolerated treatment well. Patient was frequently observed and monitored throughout the administration of their treatment. Additional Notes: Patient monitored post infusion per protocol tolerating well Post blood return: Brisk IV access post infusion: NS Discharge Plan Discharge instructions given to patient. [...] Administer over 60 Minutes, Once, On Daphne 05/14/24 at 0930, For 1 doseIndications:Iron deficiency anemia due to chronic blood loss New Bag 05/14/2024 9:08 AM CDT 125 mg of elemental iron 120 mL/hr documented in this encounter Orders Nursing Count Last Ordered Date First Orde red Date VITAL SIGNS 1 05/14/2024 Appointment Requests Count Last Ordered Date Fi rst Ordered Date ONCBCN STMN RECURRING INFUSI ON APPT REQUEST 1 05/14/2024 documented in this encounter Care Teams Barrel Filler Head Relationship Specialty Start Date End Date Starr Bran PA [address] [place] [address] PCP - General Internal Medicine 12/30/18 Bibiana Schuler MD [address] [place] [address] Consulting Physician Gastroenterology 05/11/21 Cornelius Garcia DO [address] [place] [address] MEDICAL ONCOLOGY, [address] [place] [address] Medical Oncologist/Hematologis t Hematology and Oncology 09/26/21 Madhu Brito MD [address] [place] [address] Consulting Physician Rheumatology 05/22/23 documented as of this encounter
--- OUTSIDE RECORDS SUMMARY | 2024-07-18 20:25 | XMS_ITS | Encounter Summary ---
Author Organization [facility] Address [address] [facility] [address] [place] [address] Phone Care Team Providers Care Public Improvement Inspector Name Role Phone Starr Bran Primary Care Provider [phone] Bibiana Schuler MD Unavailable [phone] Cornelius Garcia DO Unavailable [phone] Madhu Brito MD Unavailable [phone] Encounter Details Date Type Department Care Team (Late st Contact Info) Description 05/08/2024 Telephone [facility] Oncology [address] [place] [address] [address] [place] [address] Chiquita Nguyen, RN Social History Tobacco Use Types Packs/Day Years [...] on file 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 She wanted to let the office know that she has an appt for Saturday to get a transfusion and that she will be there. ZACK Oliver made aware of the patient's call. documented in this encounter Plan of Treatment Not on file documented as of this encounter Visit Diagnoses Not on filedocumented in this encounter Care Teams Public Improvement Inspector Relationship Specialty Start Date End Date Starr Bran PA [address] [place] [address] PCP - General Internal Medicine 12/30/18 Bibiana Schuler MD [address] [place] [address] Consulting Physician Gastroenterology 05/11/21 Cornelius Garcia DO [address] [place] [address] MEDICAL ONCOLOGY, [address] [place] [address] Medical Oncologist/Hematologis t Hematology and Oncology 09/26/21 Madhu Brito MD [facility] [place] [address] Consulting Physician Rheumatology 05/22/23 documented as of this encounter
--- OUTSIDE RECORDS SUMMARY | 2024-07-18 20:25 | XMS_ITS | Encounter Summary ---
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 Procedures ESOPHAGOGASTRODUODENOSCOPY Referral ID Status Reason Start Date Expiration Date Visits Re quested Visits Authorized [id number] 1 1 Encounter Details Date Type Department Care Team (Latest Contact Info) Description 05/22/2024 10:08 AM CDT - 05/22/2024 12:38 PM CDT Hospital Encounter [facility] GI Lab [address] [place] [address] Bibiana Schuler MD [address] [address] Discharge Disposition: Discharge to home or self care Social History Tobacco Use Types Packs/Day Years [...] on file 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 Gender Identity Female 02/02/2021 7:25 AM CDT Sexual Orientation Straight 02/02/2021 7: 25 AM CDT documented as of this encounter Last Filed Vital Signs Vital Sign Reading Time Taken Comments Blood Pressure 151/88 05/22/2024 12:12 PM CDT Pulse 72 05/22/2024 12:12 PM CDT Temperature 36.3 ??C (97.4 ??F) 05/22/2024 11:48 AM C DT Respiratory Rate 16 05/22/2024 12:12 PM CDT Oxygen Saturation 98% 05/22/2024 12:12 PM CDT Inhaled Oxygen Concentration - - Weight [...] documented in this encounter H&P Notes * Bibiana Schuler MD - 05/22/2024 10:51 AM CDT [...] - 05/22/2024 11:27 AM CDTAssociated Order(s): EGD ED [facility] GI ENDOSCOPY Patient Name: Viktoriya Bell Procedure Date: 05/22/2024 11:27 AM Date of : 1965 Admit Type: Outpatient Age: 59 Gender: Female Attending MD: Bibiana Schuler M.D. Room: [facility] ENDOSCOPY ROOM 09 [facility] Note Status: Finalized Procedure: Upper GI [...] On: 05/22/2024 11:27 AM Recognized by the [employer] for promoting quality [...] alcohol for 12 hours prior to procedure. ~Stirum teeth but do not swallow ~Shower or [...] a colonoscopy ~Make sure you have a emergency medical technician/driver to bring you home. ~The morning of the procedure, take only the following medications: (gabapentin, cellcept, effexor,prilosec, ) ~The day before the procedure, our clinical laboratory medical director will be contacting you to confirm you are still coming for your appointment and that you have your prep instructions and will be starting them soon. This is to decrease cancellations as much as possible. ~Please arrive on 05/22/2024 at [facility], Medical Office Building 1, Entrance A- [...] Schuler MD - 05/22/2024 11:27 AM CDT ED [facility] GI ENDOSCOPY Patient Name: Viktoriya Bell Procedure Date: 05/22/2024 11:27AM Date of : 1965 Admit Type: Outpatient Age: 59 Gender: Female Attending MD: Bibiana Schuler M.D. Room: [facility] ENDOSCOPY ROOM [facility] Note Status: Finalized Procedure: Upper GI [...] On: 05/22/2024 11:27 AM Recognized by the [employer] for promoting quality in endoscopy Bibiana Schuler MD ENDOSCOPY PROCEDURES [facility] Result documented in this encounter Visit Diagnoses Not on filedocumented in this encounter Administered Medications Inactive Administered [...] 05/22/2024 documented in this encounter Care Teams Circus Supervisor Relationship Specialty Start Date End Date Starr Bran PA [address] [place] [address] PCP - General Internal Medicine 12/30/18 Bibiana Schuler MD [address] [place] [address] Consulting Physician Gastroenterology 05/11/21 Cornelius Garcia DO [address] [place] [address] MEDICAL ONCOLOGY, [address] [address] Medical Oncologist/Hematologis t Hematology and Oncology 09/26/21 Madhu Brito MD [address] [place] [address] Consulting Physician Rheumatology 05/22/23 documented as of this encounter
--- OUTSIDE RECORDS SUMMARY | 2024-07-18 20:25 | XMS_ITS | Encounter Summary ---
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 Procedures ESOPHAGOGASTRODUODENOSCOPY Referral ID Status Reason Start Date Expiration Date Visits Re quested Visits Authorized [id number] 1 1 Encounter Details Date Type Department Care Team (Late st Contact Info) Description 05/22/2024 11:36 AM CDT Anesthesia Event [facility] GI Lab [address] [place] [address] Tommy Gonzalez MD [address] [facility] [address] [place] [address] Anesthesia Record Procedure Summary Procedure Name Responsible Anesthesiologist Anesthesia Start Time Anesthesia Stop Time ESOPHAGOGASTRODUODENOSCOPY W ITH ABLATION Tommy Gonzalez MD 05/22/24 1136 05/22/24 1148 Events Date Time Event Comment 05/22/2024 1027 1128 In Room 1129 An Start Data 1136 An Start 1136 An Induction The patient was reevaluated immediately before moderate or deep sedation use and before anesthesia induction. 1136 Anesthesia Ready 1137 Proc Start 1145 Proc Fin 1148 an stop data 1148 Out of Room 1148 Handoff to RN I completed my handoff to the receiving nurse during which we: 1. Patient identified 2. Responsible provider identified 3. Pertinent medical history reviewed 4. Procedure type and surgical course discussed 5. Intraoperative anesthetic management and any significant issues discussed 6. Expectations and concerns for postop period discussed 7. Questions solicited from receiving nurse 8. Patient disposition at the time of handoff: PACU 1148 An Stop Meds Name Total lidocaine (cardiac) syringe 2 % 100 mg propofol 250 mg Lactated Ringer's (LR) infusion 300 mL * Agents Name O2% N2O O2 N2O Air * Blood No blood administrations on file. 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 Gender Identity Female 02/02/2021 7:25 AM CDT Sexual Orientation Straight 02/02/2021 7: 25 AM CDT documented as of this encounter OR Notes * Anesthesia Postprocedure Evaluation - Tommy Gonzalez MD - 05/22/2024 12:26 PM CDT Patient: Viktoriya Bell Procedure Summary Date: 05/22/24 Room / Location: [facility] ENDOSCOPY ROOM ERCP / [facility] ENDOSCOPY Anesthesia Start: 1136 Anesthesia Stop: 1148 Procedure: ESOPHAGOGASTRODUODENOSCOPY WITH ABLATION Diagnosis: 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) Providers: Bibiana Schuler MD Responsible Provider: Tommy Gonzalez MD Anesthesia Type: MAC ASA Status: 2 Anesthesia Type: MAC Last vitals BP 151/88 Pulse 72 Temp 36.3 ??C (97.4 ??F) (Temporal) Resp 16 SpO2 98% Anesthesia Post Evaluation Patient location during evaluation: PACU Patient participation: complete - patient participated Level of consciousness: fully awake Pain management: adequate Airway patency: adequate and patent Evidence of recall: no Cardiovascular status: acceptable Respiratory status: acceptable Hydration status: acceptable Pt is: normothermic Nausea/Vomiting status: none No notable events documented. * Anesthesia Preprocedure Evaluation - Tommy Gonzalez MD - 05/22/2024 10:26 AM CDT Images from the original note were not included. Anesthesia Evaluation Viktoriya Bell is a 59 y.o. female ESOPHAGOGASTRODUODENOSCOPY Pre-Op Diagnosis Codes: * Gastric antral vascular ectasia [K31.819] HISTORY Past Medical History Information obtained from: patient and chart. Neurological Neuro/Psych system: negative Cardiovascular + Hypertension Respiratory Respiratory system: negative Hepatic / Heme + History of anemia Gastrointestinal + GERD Renal / Renal/ system: negative Musculoskeletal/Pain Musculoskeletal/Pain system: negative Endocrine / Other + Obesity (BMI >30) Functional Capacity Functional capacity: 4-6 METs Review of Systems Pertinent negatives: SOB; chest pain; orthopnea and PND Patient Active Problem List Diagnosis Date Noted Bilateral lower extremity edema 03/09/2024 Mariano's cyst of knee, right 11/21/2023 B12 deficiency 10/06/2023 Systemic sclerosis (HCC) 07/11/2023 Positive AMINA (antinuclear antibody) 05/18/2023 Morbid obesity (HCC) 05/09/2023 Restless legs 03/31/2023 Arthralgia 02/05/2023 Anemia 09/06/2022 Fatigue 05/26/2022 Vasomotor symptoms due to menopause 08/31/2021 H/O total hysterectomy with bilateral salpingo-oophorectomy (BSO) 08/29/2021 Moderate episode of recurrent major depressive disorder (HCC) 04/23/2021 SOB (shortness of breath) 02/19/2021 History of pulmonary embolus (PE) 11/15/2020 Low vitamin B12 level 11/15/2020 History of DVT (deep vein thrombosis) 11/15/2020 Acute pain of left knee 11/15/2020 Iron deficiency anemia due to chronic blood loss 10/09/2020 PHAN (dyspnea on exertion) 09/25/2020 BMI 36.0-36.9,adult 01/19/2019 Hyperglycemia 01/19/2019 Other fatigue 01/19/2019 Essential hypertension 01/16/2019 Vitamin D deficiency 01/16/2019 Past Medical History: Diagnosis Date Anemia Depression GAVE (gastric antral vascular ectasia) 07/25/[address] Schuler after endoscopy GERD (gastroesophageal reflux disease) Hypertension Pulmonary embolism (HCC) 10/2021 Scleroderma ([facility]) Past Surgical History: Procedure Laterality Date SECTION 12/1990 COLONOSCOPY HYSTERECTOMY 08/08/2021 UPPER GASTROINTESTINAL ENDOSCOPY OB History No obstetric history on file. No Known Allergies Med List Status: Nurse Complete Set By: Nieves Moscoso RN at 05/19/2024 2:06 PM Taking? Last Dose Start Date End Date Provider cyanocobalamin (Vitamin B-12) injection 1,000 mcg -- 10/04/22 -- Starr Bran PA 1,000 mcg, intramuscular, Every 30 days, First dose on Daphne 10/04/22 at 1030 cyanocobalamin (Vitamin B-12) injection 1,000 mcg -- 07/09/23 -- Starr Bran PA 1,000 mcg, intramuscular, Every 30 days, First dose on Sat07/09/23 at 0945 cyanocobalamin (Vitamin B-12) injection 1,000 mcg -- 12/18/23 -- Erica Hill NP 1,000 mcg, intramuscular, Every 30 days, First dose on Sat12/18/23 at 0900 cyanocobalamin (Vitamin B-12) injection 1,000 mcg -- 03/18/24 -- Starr Bran PA 1,000 mcg, intramuscular, Every 30 days, First dose on Sat03/18/24 at 0900 cyanocobalamin (Vitamin B-12) injection 1,000 mcg -- 04/22/24 -- Starr Bran PA 1,000 mcg, intramuscular, Every 30 days, First dose on Sat04/22/24 at 1045 FeroSuL 325 mg (65 mg iron) tablet 05/19/2024 12/11/23 -- Erica Hill NP TAKE 1 TABLET BY MOUTH TWICE DAILY gabapentin (NEURONTIN) 100 mg capsule 05/19/2024 09/25/23 -- Starr Bran PA TAKE 1 CAPSULE BY MOUTH IN THE MORNING gabapentin (NEURONTIN) 300 mg capsule 05/19/2024 09/25/23 -- Starr Bran PA TAKE 1 CAPSULE BY MOUTH AT NIGHT lisinopriL (PRINIVIL,ZESTRIL) 10 mg tablet 05/19/2024 10/06/23 -- Starr Bran PA Take 1 tablet (10 mg total) by mouth daily multivitamin tablet -- -- -- Saloni Jones MD mycophenolate mofetil (CELLCEPT) 500 mg tablet 05/19/2024 03/09/24 -- Jing Erwin PA Take 2 tablets (1,000 mg total) by mouth 2 (two) times a day Notes: Madhu Brito is supervising omeprazole (PriLOSEC) 20 mg capsule 05/19/2024 -- -- Saloni Jones MD venlafaxine XR (EFFEXOR-XR) 75 mg 24 hr capsule 05/19/2024 09/02/23 -- Starr Bran PA TAKE 3 CAPSULES DAILY WITH FOOD (DOSE INCREASE TO 225 MG. STOP 150 MG) Current Facility-Administered Medications: Lactated Ringer's (LR) infusion, 30 mL/hr, intravenous, Continuous lidocaine (XYLOCAINE) 10 mg/mL (1 %) injection 2-10 mg, 0.2-1 mL, other, Once PRN sodium chloride 0.9% flush 0.5-20 mL, 0.5-20 mL, intra-catheter, PRN Social History Tobacco Use Smoking Status Never Smokeless Tobacco Never Alcohol Use: Not At Risk (05/19/2024) AUDIT-C Frequency of Alcohol Consumption: Monthly or less Average Number of Drinks: 1 or 2 Frequency of Binge Drinking: Never Substance and Sexual Activity Drug Use Never Family History Problem Relation Age of Onset [...] cancer Neg Hx Endometrial cancer Neg Hx There were no vitals filed for this visit. PT: No results found for requested labs within last 30 days. INR: No results found for requested labs within last 30 days. APTT: No results found for requested labs within last 30 days. Hgb A1C: No results found for requested labs within last 30 days. CBC RBC: 05/21/2024: 3.99 M/cumm RDW: No results found for requested labs within last 30 days. MCHC: 05/21/2024: 30.1 g/dL (L) MCH: 05/21/2024: 23.1 pg (L) MCV: 05/21/2024: 76.7 fL (L) Hct: 05/21/2024: 30.6 % (L) Hgb: 05/21/2024: 9.2 g/dL (L) WBC: 05/21/2024: 4.4 K/cumm MPV: 05/21/2024: 10.9 fL Platelets: 05/21/2024: 242 K/cumm RDW CV: 05/21/2024: 17.2 % (H) RDW Sd: 05/21/2024: 46.8 fL BMP Glucose: No results found for requested labs within last 30 days. Calcium: No results found for requested labs within last 30 days. Sodium: No results found for requested labs within last 30 days. Potassium: No results found for requested labs within last 30 days. CO2: No results found for requested labs within last 30 days. Chloride: No results found for requested labs within last 30 days. BUN: No results found for requested labs within last 30 days. Creatinine: No results found for requested labs within last 30 days. STOP-Bang Total Score: 3 DOS Physical Exam Medical history, medications, and allergies reviewed. Attestation: I endorse the findings of the anesthesia pre-evaluation assessment dated: 05/22/2024. Airway Exam: Mallampati: II Cervical ROM: FROM TM distance: 3.5 Cardiovascular Exam: Rate: regular Rhythm: regular Pulmonary Exam: LCTA, bilat Dental Exam: Appears intact Current state: Patient's current state is cooperative and interactive. Anesthesia Plan ASA 2 My patient is approved for the Anesthesia Controlled Medication protocol when under care of a MARBLE CEILING INSTALLER Planned anesthesia: MAC Induction: Induction: intravenous. Postoperative Plan: No plan for postoperative opioid use. Patient's planned disposition post procedure is Outpatient. Informed Consent: Discussed plan with MARBLE CEILING INSTALLER. Anesthesia plan and risks discussed with patient. Consent and Attending signature: I and/or my designee have discussed the anesthesia plan, benefits, possible alternatives, parental presence at time of induction (if indicated), and clinically relevant risks that may include dental injury, unintentional awareness, and/or other complications. The patient and/or parent/legal guardian understand, and agree to proceed. All questions answered. documented in this encounter Plan of Treatment [...] AM CDT 30 mL/hr 30 mL/hr lidocaine (cardiac) (XYLOCAINE) preservative free injection intravenous, As needed, Starting on Sat05/22/24 at 1136, Anesthesia Intra-op, Indications: Ventricular ArrhythmiasIndications:Ventricular Arrhythmias Given 05/22/2024 11:36 AM CDT 100 mg propofoL (DIPRIVAN) 10 mg/mL IV intravenous, As needed, Starting on Sat05/22/24 at 1136, Anesthesia Intra-op Given 05/22/2024 11:44 AM CDT 50 mg Given 05/22/2024 11:40 AM CDT 50 mg Given 05/22/2024 11:38 AM CDT 50 mg documented in this encounter Care Teams Human Resources Trainer Relationship Specialty Start Date End Date Starr Bran PA [address] [place] [address] PCP - General Internal Medicine 12/30/18 Bibiana Schuler MD [address] [place] [address] Consulting Physician Gastroenterology 05/11/21 Cornelius Garcia DO [address] [place] [address] MEDICAL ONCOLOGY, [facility] [address] [place] [address] Medical Oncologist/Hematologis t Hematology and Oncology 09/26/21 Madhu Brito MD [address] [place] [address] Consulting Physician Rheumatology 05/22/23 documented as of this encounter
--- OUTSIDE RECORDS SUMMARY | 2024-07-18 20:25 | XMS_ITS | Encounter Summary ---
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 Gender Identity Female 02/02/2021 7:25 AM CDT Sexual Orientation Straight 02/02/2021 7: 25 AM CDT documented as of this encounter Plan of Treatment Not on file documented as of this encounter Procedures Procedure Name Priority Date/Time Associated Diagnosis Comments DIFFERENTIAL AUTO Routine 05/21/2024 7:5 5 AM CDT Iron deficiency anemia due to chronic blood loss CBC WITH AUTO DIFFERENTIAL Routine 05/21/2024 7:55 AM CDT Iron deficiency anemia due to chronic blood loss documented in this encounter Results * (ABNORMAL) Differential, auto (05/21/2024 7:55 AM CDT) Neutrophil abs 3.3 1.5 - 6.5 K/cumm Comment:Testing performed by : [address] [address] Imm gran abs 0.0 0.0 - 0.1 K/cumm [facility] Comment:Testing performed by : [address] [address] Lymphocyte abs 0.6(L) 0.8 - 3.3 K/cumm [facility] Comment:Testing performed by : [address] [address] Monocyte abs 0.3 0.2 - 0.8 K/cumm [facility] Comment:Testing performed by : [address] [address] Eosinophil abs 0.2 0.0 - 0.5 K/cumm [facility] Comment:Testing performed by : [address] [address] Basophil abs 0.0 0.0 - 0.1 K/cumm [facility] Comment:Testing performed by : [address] [address] Neutrophil pct 74.1 % [facility] Comment: Interpretive Data Percent cell count reference ranges are not reported, since discordance with absolute values may lead to misinterpretation of CBC data. Current Interpretive Data was last revised on 2017. Testing performed by: [address] [address] Imm gran pct 0.2 % [facility] Comment: Interpretive Data Percent cell count reference ranges are not reported, since discordance with absolute values may lead to misinterpretation of CBC data. Current Interpretive Data was last revised on 2017. Testing performed by: [address] [address] Lymphocyte pct 14.4 % [facility] Comment: Interpretive Data Percent cell count reference ranges are not reported, since discordance with absolute values may lead to misinterpretation of CBC data. Current Interpretive Data was last revised on 2017. Testing performed by: [address] [address] Monocyte pct 7.2 % [facility] Comment: Interpretive Data Percent cell count reference ranges are not reported, since discordance with absolute values may lead to misinterpretation of CBC data. Current Interpretive Data was last revised on 2017. Testing performed by: [address] [address] Eosinophil pct 3.6 % [facility] Comment: Interpretive Data Percent cell count reference ranges are not reported, since discordance with absolute values may lead to misinterpretation of CBC data. Current Interpretive Data was last revised on 2017. Testing performed by: [address] [address] Basophil pct 0.5 % [facility] Comment: Interpretive Data Percent cell count reference ranges are not reported, since discordance with absolute values may lead to misinterpretation of CBC data. Current Interpretive Data was last revised on 2017. Testing performed by: [address] [address] Blood 05/21/2024 7:55 AM CDT 05/21/2024 7:59 AM CDT us Cornelius Garcia DO LAB BLOOD ORDERABLES Final R esult [facility] [address] [facility] [place] [address] * (ABNORMAL) CBC with auto differential (05/21/2024 7:55 AM CDT) [facility] Signature WBC 4.4 3.8 - 9.9 K/cumm Comment:Testing performed by : [address] [address] Hgb 9.2(L) 11.9 - 15.5 g/dL [facility] Comment:Testing performed by : [address] [address] Hct 30.6(L) 35.6 - 45.5 % [facility] Comment:Testing performed by : [address] [address] Plt 242 150 - 400 K/cumm [facility] Comment:Testing performed by : [address] [address] MPV 10.9 9.1 - 12.3 fL [facility] Comment:Testing performed by : [address] [address] RBC 3.99 3.90 - 5.20 M/cumm [facility] Comment:Testing performed by : [address] [address] MCV 76.7(L) 81.3 - 96.4 fL [facility] Comment:Testing performed by : [address] [address] MCH 23.1(L) 27.1 - 33.3 pg [facility] Comment:Testing performed by : [address] [address] MCHC 30.1(L) 32.3 - 35.7 g/dL [facility] Comment:Testing performed by : [address] [address] RDW CV 17.2(H) 11.1 - 14.9 % [facility] Comment:Testing performed by : [address] [address] RDW SD 46.8 35.7 - 48.1 fL [facility] Comment:Testing performed by : [address], [address] NRBC abs 0.00 0.00 - 0.01 K/cumm [facility] Comment:Testing performed by : [facility], [address] [facility], [place]., [address] Blood 05/21/2024 7:55 AM CDT 05/21/2024 7:59 AM CDT Cornelius Garcia DO LAB BLOOD ORDERABLES Final R esult [facility] [address] [facility] [place] [address] documented in this encounter Visit Diagnoses Diagnosis Iron deficiency anemia due to chronic blood loss Iron deficiency anemia secondary to blood loss (chronic) documented in this encounter Orders Appointment Requests Count Last Ordered Date Fi rst Ordered Date ONCBCN LAB APPOINTMENT 1 05/21/2024 documented in this encounter Care Teams Telephone Lines Repairer Relationship Specialty Start Date End Date Starr Bran PA [address] [place] [address] PCP - General Internal Medicine 12/30/18 Bibiana Schuler MD [address] [place] [address] Consulting Physician Gastroenterology 05/11/21 Cornelius Garcia DO [address] [place] [address] MEDICAL ONCOLOGY, [address] [place] [address] Medical Oncologist/Hematologis t Hematology and Oncology 09/26/21 Madhu Brito MD [address] [place] [address] Consulting Physician Rheumatology 05/22/23 documented as of this encounter
--- OUTSIDE RECORDS SUMMARY | 2024-07-18 20:25 | XMS_ITS | Encounter Summary ---
Author Organization [facility] Healthcare Address [address] [place] [address] Care Team Providers Care Smokehouse Worker Name Role Phone Starr Bran Primary Care Provider [phone] Bibiana Schuler MD Unavailable [phone] Cornelius Garcia DO Unavailable [phone] Madhu Brito MD Unavailable [phone] Reason for Visit * Reason Comments Difficulty Urinating Encounter Details Date Type Department Care Team (Latest Contact Info) Description 03/04/2024 8:00 AM CDT Clinical Support [facility] Medical Group Family Medicine [address] [facility] [address] [place] [address] Dysuria (Primary Dx) Social History Tobacco Use Types [...] file 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 Gender Identity Female 02/02/2021 7:25 AM CDT Sexual Orientation Straight 02/02/2021 7: 25 AM CDT documented as of this encounter Plan of Treatment Not on file documented as of this encounter Procedures Procedure Name Priority Date/Time Associated Diagnosis Comments POCT URINALYSIS DIPSTICK Routine 03/04/2024 8:33 AM CDT Dysuria URINE CULTURE Routine 03/04/2024 8:12 AM CDT Dysuria documented in this encounter Results * (ABNORMAL) POCT urinalysis dipstick (03/04/2024 8:33 AM CDT) Glucose, ur, POC Negative Negative MG/DL Bilirubin, ur, POC Negative Negative, Small, Moderate, Large Ketones, ur, POC Negative Negative Specific [place], POC 1.030 1.003 - 1.030 Blood, ur, POC Negative Negative pH, ur, POC 0.2(A) 5.0 - 8.0 Protein, ur, POC Negative Negative Urobilinogen, urine, POC 0.2 0.2 - 1.0 mg/dL Nitrite, ur, POC Negative Negative Leukocytes, ur, POC Trace(A) Negative Lot Number [id number] Urine 03/04/2024 8:33 AM CDT Erica Hill NP POINT OF CARE TEST ORDERABLES Final Result * Urine culture Urine, clean voided (03/04/2024 8:12 AM CDT) Urine culture [facility] Comment: ??CULTURE, URINE, ROUTINE ?Micro Number: ?[id number] ??Test Status: ? Final ??Specimen Source: ?? Urine ??Specimen Quality: ??Adequate ??Result: ?No Growth Urine, clean voided 03/04/2024 8:12 AM CDT 03/05/2024 3:55 AM CDT Erica Hill [employer] LAB MICROBIOLOGY - GENERAL OR DERABLES Final Result [facility] [address] [place] [address] documented in this encounter Visit Diagnoses Diagnosis Dysuria- Primary documented in this encounter Care Teams Smokehouse Worker Relationship Specialty Start Date End Date Starr Bran PA [address] [place] [address] PCP - General Internal Medicine 12/30/18 Bibiana Schuler MD [address] [place], [place] [id number] Consulting Physician Gastroenterology 05/11/21 Cornelius Garcia DO [facility] MEDICAL ONCOLOGY, [facility] [address] [place] [address] Medical Oncologist/Hematologis t Hematology and Oncology 09/26/21 Madhu Brito MD [address] [place] [address] Consulting Physician Rheumatology 05/22/23 documented as of this encounter
--- OUTSIDE RECORDS SUMMARY | 2024-07-18 20:25 | XMS_ITS | Encounter Summary ---
Author Organization 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 Gender Identity Female 02/02/2021 7:25 AM CDT Sexual Orientation Straight 02/02/2021 7: 25 AM CDT documented as of this encounter Plan of Treatment Not on file documented as of this encounter Procedures Procedure Name Priority Date/Time Associated Diagnosis Comments DIFFERENTIAL AUTO Routine 05/14/2024 8:0 7 AM CDT Iron deficiency anemia due to chronic blood loss CBC WITH AUTO DIFFERENTIAL Routine 05/14/2024 8:07 AM CDT Iron deficiency anemia due to chronic blood loss documented in this encounter Results * Differential, auto (05/14/2024 8:07 AM CDT) Neutrophil abs 3.3 1.5 - 6.5 K/cumm Comment:Testing performed by : [address] [address] Imm gran abs 0.0 0.0 - 0.1 K/cumm LELAND Comment:Testing performed by : [address] [address] Lymphocyte abs 0.9 0.8 - 3.3 K/cumm LELAND Comment:Testing performed by : [address] [address] Monocyte abs 0.4 0.2 - 0.8 K/cumm LELAND Comment:Testing performed by : [address] [address] Eosinophil abs 0.1 0.0 - 0.5 K/cumm LELAND Comment:Testing performed by : [address] [address] Basophil abs 0.1 0.0 - 0.1 K/cumm [facility] Comment:Testing performed by : [address] [address] Neutrophil pct 69.4 % LELAND Comment: Interpretive Data Percent cell count reference ranges are not reported, since discordance with absolute values may lead to misinterpretation of CBC data. Current Interpretive Data was last revised on 2017. Testing performed by: [address] [address] Imm gran pct 0.2 % [facility] Comment: Interpretive Data Percent cell count reference ranges are not reported, since discordance with absolute values may lead to misinterpretation of CBC data. Current Interpretive Data was last revised on 2017. Testing performed by: [address] [address] Lymphocyte pct 17.7 % [facility] Comment: Interpretive Data Percent cell count reference ranges are not reported, since discordance with absolute values may lead to misinterpretation of CBC data. Current Interpretive Data was last revised on 2017. Testing performed by: [address] [address] Monocyte pct 9.0 % [facility] Comment: Interpretive Data Percent cell count reference ranges are not reported, since discordance with absolute values may lead to misinterpretation of CBC data. Current Interpretive Data was last revised on 2017. Testing performed by: [address] [address] Eosinophil pct 2.7 % [facility] Comment: Interpretive Data Percent cell count reference ranges are not reported, since discordance with absolute values may lead to misinterpretation of CBC data. Current Interpretive Data was last revised on 2017. Testing performed by: [address] [address] Basophil pct 1.0 % [facility] Comment: Interpretive Data Percent cell count reference ranges are not reported, since discordance with absolute values may lead to misinterpretation of CBC data. Current Interpretive Data was last revised on 2017. Testing performed by: [address] [address] Blood 05/14/2024 8:07 AM CDT 05/14/2024 8:09 AM CDT us Cornelius Garcia DO LAB BLOOD ORDERABLES Final R esult LELAND GARCIA [address] [facility] Department [place] [address] * (ABNORMAL) CBC with auto differential (05/14/2024 8:07 AM CDT) [facility] WBC 4.8 3.8 - 9.9 K/cumm Comment:Testing performed by : [address] [address] Hgb 9.0(L) 11.9 - 15.5 g/dL LELAND Comment:Testing performed by : [address] [address] Hct 30.4(L) 35.6 - 45.5 % LELAND Comment:Testing performed by : [address] [address] Plt 286 150 - 400 K/cumm LELAND Comment:Testing performed by : [address] [address] MPV 10.6 9.1 - 12.3 fL LELAND Comment:Testing performed by : [address], [address] RBC 3.95 3.90 - 5.20 M/cumm LELAND Comment:Testing performed by : [address] [address] MCV 77.0(L) 81.3 - 96.4 fL LELAND Comment:Testing performed by : [address] [address] MCH 22.8(L) 27.1 - 33.3 pg LELAND Comment:Testing performed by : [address] [address] MCHC 29.6(L) 32.3 - 35.7 g/dL LELAND Comment:Testing performed by : [address], [address] RDW CV 16.0(H) 11.1 - 14.9 % LELAND Comment:Testing performed by : [address], [address] RDW SD 43.8 35.7 - 48.1 fL LELAND Comment:Testing performed by : [address], [address] NRBC abs 0.00 0.00 - 0.01 K/cumm LELAND Comment:Testing performed by : [facility], [address] [facility], [place]., [address] Blood 05/14/2024 8:07 AM CDT 05/14/2024 8:09 AM CDT Cornelius Garcia DO LAB BLOOD ORDERABLES Final R esult LELAND [address] [facility] Department [place] [address] documented in this encounter Visit Diagnoses Diagnosis Iron deficiency anemia due to chronic blood loss Iron deficiency anemia secondary to blood loss (chronic) documented in this encounter Orders Appointment Requests Count Last Ordered Date Fi rst Ordered Date ONCBCN LAB APPOINTMENT 1 05/14/2024 documented in this encounter Care Teams Courtroom Deputy Relationship Specialty Start Date End Date Starr Bran PA [address] [place] [address] PCP - General Internal Medicine 12/30/18 Bibiana Schuler MD [address] [place] [address] Consulting Physician Gastroenterology 05/11/21 Cornelius Garcia DO [facility]8 [facility] MEDICAL ONCOLOGY, [address] [place] [address] Medical Oncologist/Hematologis t Hematology and Oncology 09/26/21 Madhu Brito MD [address] [place] [address] Consulting Physician Rheumatology 05/22/23 documented as of this encounter
--- OUTSIDE RECORDS SUMMARY | 2024-07-18 20:25 | XMS_ITS | Encounter Summary ---
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 Gender Identity Female 02/02/2021 7:25 AM CDT Sexual Orientation Straight 02/02/2021 7: 25 AM CDT documented as of this encounter Plan of Treatment Pending Results Name Type Priority Associated Diagnoses Date /Time Crossmatch Lab Routine 05/07/2024 11: 37 AM CDT documented as of this encounter Procedures Procedure Name Priority Date/Time Associated Diagnosis Comments ANTIBODY IDENTIFICATION SO Routine 05/07/2024 2:45 PM CDT RBC ANTIGEN SEROLOGIC PHENOTYPING Routine 05/07/2024 2:45 PM CDT B ABO / RH CONFIRMATION TESTING Routine 05/07/2024 11:39 AM CDT ABO/RH Routine 05/07/2024 11:37 AM CDT Iron deficiency anemia due to chronic blood loss CROSSMATCH Routine 05/07/2024 11:37 AM CDT Iron deficiency anemia due to chronic blood loss ANTIBODY SCREEN Routine 05/07/2024 11:37 AM CDT Iron deficiency anemia due to chronic blood loss TYPE AND SCREEN Routine 05/07/2024 11:37 AM CDT Iron deficiency anemia due to chronic blood loss DIFFERENTIAL AUTO Routine 05/07/2024 10: 19 AM CDT History of DVT (deep vein thrombosis) History of pulmonary embolus (PE) Iron deficiency anemia due to chronic blood loss IRON PROFILE W/ IBC Routine 05/07/2024 1 0:19 AM CDT History of DVT (deep vein thrombosis) History of pulmonary embolus (PE) Iron deficiency anemia due to chronic blood loss CBC WITH AUTO DIFFERENTIAL Routine 05/07/2024 10:19 AM CDT History of [...] loss documented in this encounter Results * RBC Antigen Serologic Phenotyping (05/07/2024 2:45 PM CDT) Erythrocyte ag c Positive Comment:Testing performed by : [address] [address] Erythrocyte ag C Positive LELAND Comment:Testing performed by : [address] [address] Erythrocyte ag e Positive LELAND Comment:Testing performed by : [address] [address] Erythrocyte ag E Negative L[place]AND Comment:Testing performed by : [address] [address] Blood 05/07/2024 2:45 PM CDT 05/08/2024 7:41 PM CDT Cornelius AlegreLiteScape Technologies BLOOD BANK TEST ORDERABL ES Final Result Performing Organization Address [facility] Co de Phone Number [facility] [address] [facility] [place] [address] * Antibody Identification SO (05/07/2024 2:45 PM CDT) Antibody ID Reference Lab/Send Out Anti-Drake Comment:Testing performed by : [address] [address] Blood 05/07/2024 2:45 PM CDT 05/07/2024 5:39 PM CDT Cornelius AlegreJobyourlife LAB BLOOD BANK TEST ORDERABL ES Final Result Performing Organization Address City/[facility]/ZIP Co de Phone Number [facility] [address] [facility] [place] [address] * ABO / Rh Confirmation Testing (05/07/2024 11:39 AM CDT) ABO/Rh Confirmation AB Positive [facility] Comment:Testing performed by : [address] [address] Blood 05/07/2024 11:3 9 AM CDT 05/07/2024 12:09 PM CDT Cornelius Garcia DO LAB BLOOD ORDERABLES Final R esult Performing Organization Address [facility] de Phone Number [address] [place] [address] [facility] * Crossmatch (05/07/2024 11:37 AM CDT) Pathologist [facility] Crossmatch Compatible [facility] Unit number for crossmatch [id number] [facility] Blood 05/07/2024 11:3 7 AM CDT 05/07/2024 12:09 PM CDT Cornelius Garcia [employer] BLOOD BANK TEST ORDERABL ES Final Result Performing Organization Address [facility] de Phone Number [address] [address] * (ABNORMAL) Antibody screen (05/07/2024 11:37 AM CDT) Pathologist [facility] Elsie, indirect, Gel Interpretation Positive( A) Comment:Testing performed by : [address] [address] Blood 05/07/2024 11:3 7 AM CDT 05/07/2024 12:09 PM CDT Narrative [facility] - 05/07/2024 12:57 PM CDT Has the patient had Daratumumab or Isatuximab in the past 6 months?->No Cornelius Garcia DO LAB BLOOD BANK TEST ORDERABL ES Final Result Performing Organization Address [facility]/ZIP Co de Phone Number [place] [address] [place] [address] * ABO/Rh (05/07/2024 11:37 AM CDT) Pathologist [facility] ABO/Rh AB Positive Comment:Testing performed by : [address] [address] Blood 05/07/2024 11:3 7 AM CDT 05/07/2024 12:09 PM CDT Fidencio [facility] - 05/07/2024 12:48 PM CDT Has the patient had Daratumumab or Isatuximab in the past 6 months?->No Cornelius Garcia DO LAB BLOOD BANK TEST ORDERABL ES Final Result Performing Organization Address [facility] de Phone Number [address] [address] * Differential, auto (05/07/2024 10:19 AM CDT) Pathologist [facility] Neutrophil abs 5.1 1.5 - 6.5 K/cumm Comment:Testing performed by : [address] [address] Imm gran abs 0.0 0.0 - 0.1 K/cumm LELAND Comment:Testing performed by : [address] [address] Lymphocyte abs 0.9 0.8 - 3.3 K/cumm LELAND Comment:Testing performed by : [address] [address] Monocyte abs 0.3 0.2 - 0.8 K/cumm LELAND Comment:Testing performed by : [address] [address] Eosinophil abs 0.1 0.0 - 0.5 K/cumm LELAND Comment:Testing performed by : [address] [address] Basophil abs 0.0 0.0 - 0.1 K/cumm LELAND Comment:Testing performed by : [address] [address] Neutrophil pct 79.1 % [facility] Comment: Interpretive Data Percent cell count reference ranges are not reported, since discordance with absolute values may lead to misinterpretation of CBC data. Current Interpretive Data was last revised on 2017. Testing performed by: [address] [address] Imm gran pct 0.3 % [facility] Comment: Interpretive Data Percent cell count reference ranges are not reported, since discordance with absolute values may lead to misinterpretation of CBC data. Current Interpretive Data was last revised on 2017. Testing performed by: [address] [address] Lymphocyte pct 13.6 % [facility] Comment: Interpretive Data Percent cell count reference ranges are not reported, since discordance with absolute values may lead to misinterpretation of CBC data. Current Interpretive Data was last revised on 2017. Testing performed by: [address] [address] Monocyte pct 5.0 % [facility] Comment: Interpretive Data Percent cell count reference ranges are not reported, since discordance with absolute values may lead to misinterpretation of CBC data. Current Interpretive Data was last revised on 2017. Testing performed by: [address] [address] Eosinophil pct 1.5 % [facility] Comment: Interpretive Data Percent cell count reference ranges are not reported, since discordance with absolute values may lead to misinterpretation of CBC data. Current Interpretive Data was last revised on 2017. Testing performed by: [address] [address] Basophil pct 0.5 % [facility] Comment: Interpretive Data Percent cell count reference ranges are not reported, since discordance with absolute values may lead to misinterpretation of CBC data. Current Interpretive Data was last revised on 2017. Testing performed by: [address] [address] Blood 05/07/2024 10:1 9 AM CDT 05/07/2024 10:23 AM CDT us Jacquelin Rivero OPTICAL INSTRUMENT ASSEMBLY SUPERVISOR LAB BLOOD ORDERABLES Soco gorman Result L[facility]AND [address] [facility] Department [place] [address] * (ABNORMAL) CBC with auto differential (05/07/2024 10:19 AM CDT) WBC 6.5 3.8 - 9.9 K/cumm Comment:Testing performed by : [address] [address] Hgb 7.6(L) 11.9 - 15.5 g/dL LELAND GARCIA Comment:Testing performed by : [address] [address] Hct 25.3(L) 35.6 - 45.5 % LELAND GARCIA Comment:Testing performed by : [address] [address] Plt 288 150 - 400 K/cumm LELAND Comment:Testing performed by : [address] [address] MPV 10.7 9.1 - 12.3 fL LELAND GARCIA Comment:Testing performed by : [address] [address] RBC 3.38(L) 3.90 - 5.20 M/cumm LELAND GARCIA Comment:Testing performed by : [address] [address] MCV 74.9(L) 81.3 - 96.4 fL LELAND Comment:Testing performed by : [address] [address] MCH 22.5(L) 27.1 - 33.3 pg LELAND GARCIA Comment:Testing performed by : [address] [address] MCHC 30.0(L) 32.3 - 35.7 g/dL LELAND Comment:Testing performed by : [address] [address] RDW CV 15.3(H) 11.1 - 14.9 % LELAND Comment:Testing performed by : [address], [address] RDW SD 41.7 35.7 - 48.1 fL LELAND GARCIA Comment:Testing performed by : [address] [address] NRBC abs 0.00 0.00 - 0.01 K/cumm LELAND Comment:Testing performed by : [address], [address] Blood 05/07/2024 10:1 9 AM CDT 05/07/2024 10:23 AM CDT Jacquelin Rivero OPTICAL INSTRUMENT ASSEMBLY SUPERVISOR LAB BLOOD ORDERABLES Soco l Result Performing Organization Address [facility] de Phone Number [address] [place] [address] * (ABNORMAL) Ferritin (05/07/2024 10:19 AM CDT) Ferritin 9(L) 15 - 150 ng/mL Comment:Testing performed by : [address], [address] Blood 05/07/2024 10:1 9 AM CDT 05/07/2024 12:09 PM CDT Jacquelin Rivero OPTICAL INSTRUMENT ASSEMBLY SUPERVISOR LAB BLOOD ORDERABLES Soco l Result Performing Organization Address City/[facility] de Phone Number [address] [place] [address] * (ABNORMAL) Iron profile w/ IBC (05/07/2024 10:19 AM CDT) Iron 22(L) 35 - 145 mcg/dL Comment:Testing performed by : [address] [address] TIBC 407(H) 250 - 400 mcg/dL LELAND Comment:Testing performed by : [address] [address] Transferrin saturation 5(L) 20 - 50 % L[place]AND Comment:Testing performed by : [address] [address] Blood 05/07/2024 10:1 9 AM CDT 05/07/2024 12:09 PM CDT Jacquelin Rivero OPTICAL INSTRUMENT ASSEMBLY SUPERVISOR LAB BLOOD ORDERABLES Soco l Result Performing Organization Address [facility] Co de Phone Number LELAND [address] [place] [address] * (ABNORMAL) Reticulocyte Count (05/07/2024 10:13 AM CDT) Retics, absolute 0.063 0.020 - 0.087 M/cumm Comment:Testing performed by : [address] [address] Retics 1.9 0.4 - 2.9 % LELAND Comment:Testing performed by : [address] [address] Reticulocyte Hgb 16.9(L) 30.5 - 38.0 pg [place]AND Comment:Testing performed by : [address] [address] Blood 05/07/2024 10:1 3 AM CDT 05/07/2024 11:16 AM CDT Cornelius Garcia DO LAB BLOOD ORDERABLES Final R esult Performing Organization Address [facility] de Phone Number [address] [place] [address] documented in this encounter Visit Diagnoses Diagnosis History of DVT (deep vein thrombosis) History of pulmonary embolus (PE) Iron deficiency anemia due to chronic blood loss Iron deficiency anemia secondary to blood loss (chronic) documented in this encounter Orders Appointment Requests Count Last Ordered Date Fi rst Ordered Date ONCBCN LAB APPOINTMENT 1 05/15/2024 documented in this encounter Care Teams Separator Inserter Relationship Specialty Start Date End Date Starr Bran PA [address] [place] [address] PCP - General Internal Medicine 12/30/18 Bibiana Schuler MD [address] [place] [address] Consulting Physician Gastroenterology 05/11/21 Cornelius Garcia DO [facility]8 [facility] MEDICAL ONCOLOGY, [facility] [address] [place] [address] Medical Oncologist/Hematologis t Hematology and Oncology 09/26/21 Madhu Brito MD [address] [place] [address] Consulting Physician Rheumatology 05/22/23 documented as of this encounter
--- OUTSIDE RECORDS SUMMARY | 2024-07-18 20:25 | XMS_ITS | Encounter Summary ---
Author Organization [facility] Healthcare Address [address] [place] [address] Care Team Providers Care Research Laboratory Manager Name Role Phone Starr Bran Primary Care Provider [phone] Bibiana Schuler MD Unavailable [phone] Cornelius Garcia DO Unavailable [phone] Madhu Brito MD Unavailable [phone] Reason for Visit * Reason Comments Dysuria Encounter Details Date Type Department Care Team (Latest Contact Info) Description 2024 10:00 AM CDT Clinical Support [facility] Medical Group Family Medicine [address] [facility] [address] [place] [address] Dysuria (Primary Dx) Social History [...] on file 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 Gender Identity Female 02/02/2021 7:25 AM CDT Sexual Orientation Straight 02/02/2021 7: 25 AM CDT documented as of this encounter Plan of Treatment Not on file documented as of this encounter Procedures Procedure Name Priority Date/Time Associated Diagnosis Comments POCT URINALYSIS DIPSTICK Routine 2024 10:09 AM CDT Dysuria URINE CULTURE Routine 2024 10:07 AM CDT Dysuria documented in this encounter Results * (ABNORMAL) POCT urinalysis dipstick (2024 10:09 AM CDT) Glucose, ur, POC Negative Negative MG/DL Bilirubin, ur, POC Negative Negative, Small, Moderate, Large Ketones, ur, POC Negative Negative Specific [place], POC 1.030 1.003 - 1.030 Blood, ur, POC Trace(A) Negative pH, ur, POC 6.5 5.0 - 8.0 Protein, ur, POC Negative Negative Urobilinogen, urine, POC 0.2 0.2 - 1.0 mg/dL Nitrite, ur, POC Negative Negative Leukocytes, ur, POC Large(A) Negative Lot Number [id number] Urine 2024 10:0 9 AM CDT Erica Hill NP POINT OF CARE TEST ORDERABLES Final Result * (ABNORMAL) Urine culture Urine, clean voided (2024 10:07 AM CDT) Urine culture (A) [employer]ha Friedman Comment: ??CULTURE, URINE, ROUTINE ?Micro Number: ?[id number] ??Test Status: ? Final ??Specimen Source: ?? Not given ??Specimen Quality: ??Adequate ??Result: ?10,000-49,000 CFU/mL of Escherichia coli ?E.coli ?INT ?? FRANKLIN ?? AMOX/CLAVULANATE ? S ? 8 ?? AMP/SULBACTAM ?S ? 4 ?? CEFAZOLIN ?NR ?<=4 2 ?? CEFEPIME ? S ? <=0.12 ?? CEFTAZIDIME ?S ? <=1 ?? CEFTRIAXONE ?S ? <=0.25 ?? CIPROFLOXACIN ?S ? <=0.06 ?? GENTAMICIN ? S ? <=1 ?? IMIPENEM ? S ? <=0.25 ?? LEVOFLOXACIN ? S ? <=0.12 ?? MEROPENEM ?S ? <=0.25 ?? NITROFURANTOIN ? S ? 32 ?? PIP/TAZOBACTAM ? S ? <=4 ?? TRIMETHOPRIM/SULFA ? S ? <=20 S=Susceptible ??I=Intermediate ??R=Resistant ??* = Not Tested NR = Not Reported ??NN = See Therapy Comments THERAPY COMMENTS ?Note 1: ?For infections other than uncomplicated UTI ?caused by E. coli, K. pneumoniae or P. mirabilis: ?Cefazolin is resistant if FRANKLIN > or = 8 mcg/mL. ?(Distinguishing susceptible versus intermediate ?for isolates with FRANKLIN < or = 4 mcg/mL requires ?additional testing.) ?Note 2: ?For uncomplicated UTI caused by E. coli, ?K. pneumoniae or P. mirabilis: Cefazolin is ?susceptible if FRANKLIN <32 mcg/mL and predicts ?susceptible to the oral agents cefaclor, cefdinir, ?cefpodoxime, cefprozil, cefuroxime, cephalexin ?and loracarbef. Urine, clean voided 2024 10:07 AM CDT 2024 11:15 PM CDT Erica Hill PATCH WORKER LAB MICROBIOLOGY - GENERAL OR DERABLES Final Result [facility] [address] [place] [address] documented in this encounter Visit Diagnoses Diagnosis Dysuria- Primary documented in this encounter Care Teams Research Laboratory Manager Relationship Specialty Start Date End Date Starr Bran PA [address] [place] [address] PCP - General Internal Medicine 12/30/18 Bibiana Schuler MD [address] [place] [address] Consulting Physician Gastroenterology 05/11/21 Cornelius Garcia DO [facility]8 [facility] MEDICAL ONCOLOGY, [facility] [address] [place] [address] Medical Oncologist/Hematologis t Hematology and Oncology 09/26/21 Madhu Brito MD [address] [place] [address] Consulting Physician Rheumatology 05/22/23 documented as of this encounter
--- OUTSIDE RECORDS SUMMARY | 2024-07-18 20:25 | XMS_ITS | Encounter Summary ---
Author Organization [facility] Healthcare Address [address] [place] [address] Care Team Providers Care Net Solutions Architect Name Role Phone Starr Bran Primary Care Provider [phone] Bibiana Schuler MD Unavailable [phone] Cornelius Garcia DO Unavailable [phone] Madhu Brito MD Unavailable [phone] Reason for Visit * Reason Comments B12 Injection Encounter Details Date Type Department Care Team (Latest Contact Info) Description 04/22/2024 10:00 AM CDT Clinical Support [facility] Medical Group Family Medicine [address] [address] Vitamin B deficiency (Primary Dx) Social History Tobacco Use [...] on file 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 Gender Identity Female 02/02/2021 7:25 AM CDT Sexual Orientation Straight 02/02/2021 7: 25 AM CDT documented as of this encounter Plan of Treatment Not on file documented as of this encounter Visit Diagnoses Diagnosis Vitamin B deficiency- Primary Unspecified vitamin B deficiency documented in this encounter Administered Medications Active Administered Medications - up to 3 most recent administrations Medication Order MAR Action Action Date Dose Rate Site cyanocobalamin (Vitamin B-12) injection 1,000 mcg 1,000 mcg, intramuscular, Every 30 days, First dose on Sat04/22/24 at 1045Indications:Vitamin B deficiency Given 07/01/2024 10:43 AM ESCALATOR OPERATOR 1,000 mcg Left Deltoid Given 05/20/2024 9:42 AM CDT 1,000 mcg Ri ght Deltoid Given 04/22/2024 10:06 AM CDT 1,000 mcg L eft Deltoid documented in this encounter Care Teams Net Solutions Architect Relationship Specialty Start Date End Date Starr Bran PA [address] [place] [address] PCP - General Internal Medicine 12/30/18 Bibiana Schuler MD [address] [place] [address] Consulting Physician Gastroenterology 05/11/21 Cornelius Garcia DO [address] [place] [address] MEDICAL ONCOLOGY, [facility] [address] [place] [address] Medical Oncologist/Hematologis t Hematology and Oncology 09/26/21 Madhu Brito MD [address] [place] [address] Consulting Physician Rheumatology 05/22/23 documented as of this encounter
--- OUTSIDE RECORDS SUMMARY | 2024-07-18 20:26 | XMS_ITS | Encounter Summary ---
Author Organization [facility] Healthcare Address [address] [place] [address] Care Team Providers Care Commercial Helicopter Pilot Name Role Phone Starr Bran Primary Care Provider [phone] Bibiana Schuler MD Unavailable [phone] Cornelius Garcia DO Unavailable Madhu Brito MD Unavailable [phone] Reason for Referral * MRI/CAT/PET Scan (Routine) - Closed Specialty Diagnoses / Procedures Referred By Hung gao Referred To Contact Radiology Diagnoses Chronic pain of right knee Procedures MRI Knee Right WO Contrast Zachary Mcdaniel MD [address] [place] [address] DR [address] [place] [address] Phone: tel: fax: [address] [address] Referral ID Status Reason Start Date Expiration Date Visits Re quested Visits Authorized [id number] Closed 01/15/2024 02/13/2025 1 1 * Diagnostic Imaging (Routine) - Closed Specialty Diagnoses / Procedures Referred By Hung gao Referred To Contact Diagnoses Chronic pain of right knee Procedures XR Knee Right 3 Views Zachary Mcdaniel MD [address] [place] [address] [address] [place] [address] Phone: tel: fax: [facility] [address] [place] [address] Referral ID Status Reason Start Date Expiration Date Visits Re quested Visits Authorized [id number] Closed 01/06/2024 02/04/2025 1 1 Reason for Visit * Reason Comments Pain * Consultation (Routine) - Closed Specialty Diagnoses / Procedures Referred By Hung t Referred To Contact Orthopedic Surgery Diagnoses Mariano's cyst of knee, right Starr Bran PA [address] [facility] [address] [place] [address] Phone: tel: fax: Zachary Mcdaniel MD [facility] [address] [place] [address] Phone: tel: fax: Referral ID Status Reason Start Date Expiration Date V isits Requested Visits Authorized [id number] Closed Specialty Services Required 11/21/2023 12/20/2024 1 1 Encounter Details Date Type Department Care Team (Late st Contact Info) Description 01/15/2024 9:00 AM CDT Office Visit [facility] Medical Group Orthopedics and Sports Medicine [address] [facility] [address] [place] [phone] Zachary Mcdaniel MD [facility] [address] [place] [address] Chronic pain of right knee (Primary Dx); Mariano's cyst of knee, right Social History Tobacco Use Types Packs/Day Years [...] on file 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 Visit Date: 01/15/2024 Physician: Zachary Mcdaniel MDMedical Record: [id number] Assessments: 1.58 y.o. female with right knee pain since October of 2023 with evidence of Mariano cyst and possible concomitant medial meniscus tear and patellofemoral primary osteoarthritis 2. 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 11/20/23 right lower extremity negative for DVT and presence of Mariano cyst 5. The patient has a history of scleroderma 6. 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 The patient does have a notable history of right lower extremity DVT was subsequently pulmonary embolism in 2020 and she was treated with 1 year of prescription anticoagulation and now takes aspirin deidre daily basis. She reports that when she does have knee pain is mostly along the medial aspect and does exacerbate with activity squatting twisting and pivoting type maneuvers. She had an ultrasound which showed no evidence of recent DVT in 2023 but it did show evidence of a Mariano cyst. She is seenher primary care provider for this problem. She is not currently at treatment goal. Review of Systems and Examination: Right knee exam On examination, the patient is alert and oriented times three. Hearing is intact to spoken word with mood and affect within normal limits. There is no groin pain with internal and external rotation of the hip. There are no symptoms of radiculopathy with straight-leg raise testing. The skin is intact across the lower extremity with no evidence of clinical infection. There is no evidence at the calf concerning for deep vein thrombosis. The lower extremity is warm and well perfused. Sensation is intact in the superficial peroneal nerve, deep peroneal nerve, sural, saphenous, and plantar nerves. There is intact strength with ankle dorsiflexion and plantarflexion. There is no evidence of intraart icular effusion. Full extension of the knee. 135 degrees of knee flexion. There is no tenderness atthe patellar tendon and no tenderness at the quadriceps tendon. The knee is stable to varus and valgus testing at terminal extension and 30 degrees of flexion. Anterior drawer and Fili exam is grade 1A and Posterior drawer test is grade 0. There is mild bilateral crepitus and no pain with open chain knee extension. There is evidence of tenderness at the medial joint line that does seem to exacerbate with flexion and compression testing. There is no tenderness at the lateral joint line. Thereis evidence of a palpable Mariano cyst present. Data Review: I personally reviewed the radiology images and I gave her erickson images to take home. I reviewed the result of the 11/16/23 ultrasound report as well as prior primary care notes. Plan: At this time I discussed with the patient that given the clinical scenario of the patient's history, examination, and imaging, there is a suspected diagnosis medial joint line pain from possible medial meniscus tear with subsequent mariano cyst formation in the setting of a currently asymptomatic patellofemoral degenerative changes and I would recommend obtaining a knee MRI to better delineate the knee anatomy and potential pathology. The MRI will help determine treatment plan options including nonoperative and possible surgical options. We will schedule the patient to return to clinic following the MRI to review the results and discuss options. She will continue keep a journal of her symptoms going forward in regards to relieving or exacerbating features. All questions answered. documented in this encounter Plan of Treatment Scheduled Orders Name Type Priority Associated Diagnoses Orde r Schedule MRI Knee Right WO Contrast Imaging Schedule Routine, Read Routine (OP Routine) Chronic pain of right knee Expected: 01/15/2024, Expires: 01/14/2025 documented as of this encounter Results * XR Knee Right 3 Views (01/15/2024 9:10 AM CDT) Anatomical Region Laterality Modality Lower Extremities, Knee Right Computed Radiography 01/15/2024 12:4 8 PM CDT Narrative 01/15/2024 12:49 PM CDT EXAM DESCRIPTION: ?? XR KNEE RIGHT 3 VIEWS REASON FOR STUDY: ?? pain ?? COMPARISON: ??None FINDINGS: There is no evidence of fracture, dislocation or tumor. ??There is evidence of degenerative changes predominately at the patellofemoral joint region. ??No evidence of osteochondritis desiccans lesion or overt loose body. ??There is no evidence of osteoblastic or osteolytic process concerning for malignancy. IMPRESSION: ??1. ??Evidence of degenerative changes predominately at the patellofemoral joint region. THIS IS AN ELECTRONICALLY VERIFIED FINAL REPORT 01/15/2024 12:49 PM - Electronically signed by ??Zachary Mcdaniel : D: ??01/15/2024 12:49 PM T: ??01/15/2024 12:49 PM Report ID: [id number] Reading Location: ??[place] [address] Procedure Note Zachary Mcdaniel MD - 01/15/2024 EXAM DESCRIPTION: XR KNEE RIGHT 3 VIEWS REASON FOR STUDY: pain COMPARISON: None FINDINGS: There is no evidence of fracture, dislocation or tumor. There is evidenceof degenerative changes predominately at the patellofemoral joint region. No evidence of osteochondritis desiccans lesion or overt loose body. Thereis no evidence of osteoblastic or osteolytic process concerning for malignancy. IMPRESSION: 1. Evidence of degenerative changes predominately at the patellofemoral joint region. THIS IS AN ELECTRONICALLY VERIFIED FINAL REPORT 01/15/2024 12:49 PM - Electronically signed by Zachary Mcdaniel MH: Report ID: [id number] Reading Location: [place] [address] Zachary Mcdaniel MD IMG XR PROCEDURES Final Result documented in this encounter Visit Diagnoses Diagnosis Chronic pain of right knee- Primary Mariano's cyst of knee, right Chronic pain of right knee documented in this encounter Orders Outpatient Referral Count Last Ordered Date Fir st Ordered Date AMB REFERRAL TO ORTHOPEDIC SURGERY 1 2023 documented in this encounter Care Teams Commercial Helicopter Pilot Relationship Specialty Start Date End Date Starr Bran PA [address] [place] [address] PCP - General Internal Medicine 12/30/18 Bibiana Schuler MD [address] [place] [address] Consulting Physician Gastroenterology 05/11/21 Cornelius Garcia DO [address] [facility] MEDICAL ONCOLOGY, [facility] [address] [place] [address] Medical Oncologist/Hematologis t Hematology and Oncology 09/26/21 Madhu Brito MD [address] [place] [address] Consulting Physician Rheumatology 05/22/23 documented as of this encounter
--- OUTSIDE RECORDS SUMMARY | 2024-07-18 20:26 | XMS_ITS | Encounter Summary ---
Author Organization [facility] Healthcare Address [address] [place] [address] Care Team Providers Care Procurement Assistant Name Role Phone Starr Bran Primary Care Provider [phone] Bibiana Schuler MD Unavailable [phone] Cornelius Garcia DO Unavailable [phone] Madhu Brito MD Unavailable [phone] Reason for Visit * Reason Comments Injections B-12 Encounter Details Date Type Department Care Team (Late st Contact Info) Description 10/23/2023 8:00 AM CDT Clinical Support [facility] Medical Group Family Medicine [address] [address] Social History Tobacco Use Types Packs/Day Years Used Date Smoking Tobacco: Never Smokeless Tobacco: Never AUDIT-C Answer Date Recorded Q1: How often do you have a drink containing alc ohol? Monthly or less 09/19/2023 Q2: How many drinks containi ng alcohol do you have on a typical day when you are drinking? 1 or 2 09/19/2023 Q3: How often do you have si x or more drinks on one occasion? Never 09/19/2023 PHQ-2 Answer Date Recorded PHQ-2 Total Score 2 09/19/2023 Personal Safety Answer Date Recorded Have you ever been in or are you currently in a harmful physical or emotional relationship or is someone making you feel afraid or unsafe? 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 Gender Identity Female 02/02/2021 7:25 AM CDT [...] 30 days, First dose on Sat07/09/23 at 0945Indications:Low serum vitamin B12 Given 11/20/2023 8:09 AM CDT 1,000 mcg Right Dorsogluteal/Butt ock Given 10/23/2023 8:20 AM CDT 1,000 mcg Le ft Deltoid Given 09/19/2023 12:10 PM PLASTIC JOINT MAKER 1,000 mcg R ight Deltoid documented in this encounter Care Teams Procurement Assistant Relationship Specialty Start Date End Date Starr Bran PA [address] [place] [address] PCP - General Internal Medicine 12/30/18 Bibiana Schuler MD [address] [place] [address] Consulting Physician Gastroenterology 05/11/21 Cornelius Garcia DO [address] [place] [address] MEDICAL ONCOLOGY, [address] [place] [address] Medical Oncologist/Hematologis t Hematology and Oncology 09/26/21 Madhu Brito MD [address] [place] [address] Consulting Physician Rheumatology 05/22/23 documented as of this encounter
--- OUTSIDE RECORDS SUMMARY | 2024-07-18 20:26 | XMS_ITS | Encounter Summary ---
Author Organization [facility] Healthcare Address [address] [place] [address] Care Team Providers Care Reinsurance Accountant Name Role Phone Starr Bran Primary Care Provider [phone] Bibiana Schuler MD Unavailable [phone] Cornelius Garcia DO Unavailable [phone] Madhu Brito MD Unavailable [phone] Reason for Visit * Reason Onset Date Comments Venous doppler results 11/20/2023 Encounter Details Date Type Department Care Team (Late st Contact Info) Description 11/20/2023 Telephone [facility] Medical Group Family Medicine [address] [facility] [address] [place] [address] Starr Bran PA [address] [facility] [address] [place] [address] Venous doppler results Social History Tobacco Use Types Packs/Day Years [...] on file 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 * Telephone Encounter - Starr Bran PA - 11/20/2023 7:52 PM CDT I called patient to discuss her venous doppler results. I tried 3 times and left messages. On the last one, instructed her to return the call to the office in the morning. AC --->please transfer her to the office so the provider can speak with her. documented in this encounter Plan of Treatment Not on file documented as of this encounter Visit Diagnoses Not on filedocumented in this encounter Care Teams Reinsurance Accountant Relationship Specialty Start Date End Date Starr Bran PA [address] [place] [address] PCP - General Internal Medicine 12/30/18 Bibiana Schuler MD [address] [place] [address] Consulting Physician Gastroenterology 05/11/21 Cornelius Garcia DO [address] [place] [address] MEDICAL ONCOLOGY, [facility] [address] [place] [address] Medical Oncologist/Hematologis t Hematology and Oncology 09/26/21 Madhu Brito MD [address] [place] [address] Consulting Physician Rheumatology 05/22/23 documented as of this encounter
--- OUTSIDE RECORDS SUMMARY | 2024-07-18 20:26 | XMS_ITS | Encounter Summary ---
Author Organization [facility] Healthcare Address [address] [place] [address] Care Team Providers Care Qc Lab Technician Name Role Phone Starr Bran Primary Care Provider [phone] Bibiana Schuler MD Unavailable [phone] Cornelius Garcia DO Unavailable [phone] Madhu Brito MD Unavailable [phone] Reason for Visit * Reason Comments Vitamin b 12 injection Encounter Details Date Type Department Care Team (Latest Contact Info) Description 02/19/2024 8:00 AM CDT Clinical Support [facility] Medical Group Family Medicine [address] [address] Vitamin B deficiency (Primary Dx) [...] on file 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 Gender Identity Female 02/02/2021 7:25 AM CDT Sexual Orientation Straight 02/02/2021 7: 25 AM CDT documented as of this encounter Plan of Treatment Not on file documented as of this encounter Visit Diagnoses Diagnosis Vitamin B deficiency- Primary Unspecified vitamin B deficiency documented in this encounter Administered Medications Inactive Administered Medications - up to 3 most recent administrations Medication Order MAR Action Action Date Dose Rate Site cyanocobalamin (Vitamin B-12) injection 1,000 mcg 1,000 mcg, intramuscular, Once, On Sat02/19/24 at 0845, For 1 doseIndications:Vitamin B deficiency Given 02/19/2024 8:07 AM CDT 1,000 mcg Left Deltoid documented in this encounter Care Teams Qc Lab Technician Relationship Specialty Start Date End Date Starr Bran PA [address] [place] [address] PCP - General Internal Medicine 12/30/18 Bibiana Schuler MD [address] [place] [address] Consulting Physician Gastroenterology 05/11/21 Cornelius Garcia DO [address] [place] [address] MEDICAL ONCOLOGY, [facility] [address] [place] [address] Medical Oncologist/Hematologis t Hematology and Oncology 09/26/21 Madhu Brito MD [address] [place] [address] Consulting Physician Rheumatology 05/22/23 documented as of this encounter
--- OUTSIDE RECORDS SUMMARY | 2024-07-18 20:26 | XMS_ITS | Encounter Summary ---
Author Organization [facility] Healthcare Address [address] [place] [address] Care Team Providers Care Poultry Pathologist Name Role Phone Starr Bran Primary Care Provider [phone] Bibiana Schuler MD Unavailable [phone] Cornelius Garcia DO Unavailable [phone] Madhu Brito MD Unavailable [phone] Reason for Referral * Diagnostic Imaging (Routine) - Closed Specialty Diagnoses / Procedures Referred By Hung gao Referred To Contact Diagnoses Chronic pain of right knee Procedures XR Knee Right 3 Views Zachary Mcdaniel MD [address] [place] [address] [address] [place] [address] Phone: tel: fax: [address] [address] Referral ID Status Reason Start Date Expiration Date Visits Re quested Visits Authorized [id number] Closed 01/06/2024 02/04/2025 1 1 Reason for Visit * Diagnostic Imaging (Routine) - Closed Specialty Diagnoses / Procedures Referred By Hung gao Referred To Contact Diagnoses Chronic pain of right knee Procedures XR Knee Right 3 Views Zachary Mcdaniel MD [address] [place] [address] [address] [place] [address] Phone: tel: fax: [facility] [address] [place] [address] Referral ID Status Reason Start Date Expiration Date Visits Re quested Visits Authorized [id number] Closed 01/06/2024 02/04/2025 1 1 Encounter Details Date Type Department Care Team (Latest Contact Info) Description 01/15/2024 8:52 AM CDT - 01/15/2024 11:59 PM CDT Hospital Encounter [facility] MOB 1 DIAG IMG [address] [place] [address] Chronic pain of right knee Discharge Disposition: Discharge to home or self [...] on file 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 Gender Identity Female 02/02/2021 7:25 AM CDT Sexual Orientation Straight 02/02/2021 7: 25 AM CDT documented as of this encounter Medications at Time of Discharge FeroSuL 325 mg (65 mg iron) tabletIndication s:Low vitamin B12 level TAKE 1 TABLET BY MOUTH TWICE DAILY 180 tablet 2 12/11/2023 multivitamin tablet daily omeprazole (PriLOSEC) 20 mg capsule Take 2 capsules (40 mg total) by mouth daily aspirin 81 mg enteric coated tablet Take 1 tablet (81 mg total) by mouth daily 05/07/2024 gabapentin (NEURONTIN) 100 mg capsuleIndicatio ns:Vasomotor symptoms due to menopause TAKE 1 CAPSULE BY MOUTH IN THE MORNING 90 capsule 1 09/25/2023 05/25/2024 gabapentin (NEURONTIN) 300 mg capsuleIndicatio ns:Vasomotor phenomenon TAKE 1 CAPSULE BY MOUTH AT NIGHT 90 capsule 1 09/25/2023 05/25/2024 lisinopriL (PRINIVIL,ZESTRI L) 10 mg tablet Take 1 tablet (10 mg total) by mouth daily 10/06/2023 07/09/2024 mycophenolate mofetil (CELLCEPT) 500 mg tablet TAKE 2 TABLETS(1000 MG) BY MOUTH TWICE DAILY 360 tablet 01/13/2024 03/09/2024 venlafaxine XR (EFFEXOR-XR) 75 mg 24 hr capsule TAKE 3 CAPSULES DAILY WITH FOOD (DOSE INCREASE TO 225 MG. STOP 150 MG) 270 capsule 3 09/02/2023 07/01/2024 documented as of this encounter Discharge Disposition Disposition Code Departure Means Destination Discharge to home or self care documented in this encounter Plan of Treatment Not on file documented as of this encounter Procedures Procedure Name Priority Date/Time Associated Diagnosis Comments XR KNEE RIGHT 3 VIEWS Schedule Routine, Read Routine (OP Routine) 01/15/2024 9:10 AM CDT Chronic pain of right knee documented in this encounter Results * XR Knee Right [...] PM - Electronically signed by ??Zachary Mcdaniel MH: JOSE D: ??01/15/2024 12:49 PM T: ??01/15/2024 12:49 PM Report ID: [id number] Reading Location: ??[place] [address] Procedure Note Zachary Mcdaniel MD - 01/15/2024 [...] signed by Zachary Mcdaniel MH: Report ID: [id number] Reading Location: [place] [address] Zachary Mcdaniel MD IMG XR PROCEDURES Final Result documented in this encounter Visit Diagnoses Diagnosis Chronic pain of right knee documented in this encounter Care Teams Poultry Pathologist Relationship Specialty Start Date End Date Starr Bran PA [address] [place] [address] PCP - General Internal Medicine 12/30/18 Bibiana Schuler MD [address] [place] [address] Consulting Physician Gastroenterology 05/11/21 Cornelius Garcia DO [address] [place] [address] MEDICAL ONCOLOGY, [address] [place] [address] Medical Oncologist/Hematologis t Hematology and Oncology 09/26/21 Madhu Brito MD [address] [place] [address] Consulting Physician Rheumatology 05/22/23 documented as of this encounter
--- OUTSIDE RECORDS SUMMARY | 2024-07-18 20:26 | XMS_ITS | Encounter Summary ---
Author Organization [facility] Healthcare Address [address] [place] [address] Care Team Providers Care Shredder/Granulator Operator Name Role Phone Starr Bran Primary Care Provider [phone] Bibiana Schuler MD Unavailable [phone] Cornelius Garcia DO Unavailable [phone] Madhu Brito MD Unavailable [phone] Encounter Details Date Type Department Care Team (Late st Contact Info) Description 02/06/2024 8:45 AM CDT Lab [facility] at [address] [address] Iron deficiency anemia due to chronic blood [...] on file 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 Gender Identity Female 02/02/2021 7:25 AM CDT Sexual Orientation Straight 02/02/2021 7: 25 AM CDT documented as of this encounter Plan of Treatment Not on file documented as of this encounter Procedures Procedure Name Priority Date/Time Associated Diagnosis Comments DIFFERENTIAL AUTO Routine 02/06/2024 8:4 7 AM CDT Iron deficiency anemia due to chronic blood loss IRON PROFILE W/ IBC Routine 02/06/2024 8 :47 AM CDT Iron deficiency anemia due to chronic blood loss CBC WITH AUTO DIFFERENTIAL Routine 02/06/2024 8:47 AM CDT Iron deficiency anemia due to chronic blood loss FERRITIN Routine 02/06/2024 8:47 AM CDT Iron deficiency anemia due to chronic blood loss documented in this encounter Results * (ABNORMAL) Differential, auto (02/06/2024 8:47 AM CDT) Neutrophil abs 3.9 1.5 - 6.5 K/cumm Comment:Testing performed by : [address] [address] Imm gran abs 0.0 0.0 - 0.1 K/cumm [place] Comment:Testing performed by : [address] [address] Lymphocyte abs 0.7(L) 0.8 - 3.3 K/cumm [place] Comment:Testing performed by : [address] [address] Monocyte abs 0.4 0.2 - 0.8 K/cumm [place] Comment:Testing performed by : [address] [address] Eosinophil abs 0.0 0.0 - 0.5 K/cumm [place] Comment:Testing performed by : [address] [address] Basophil abs 0.0 0.0 - 0.1 K/cumm [place] Comment:Testing performed by : [address] [address] Neutrophil pct 76.2 % [facility] Comment: Interpretive Data Percent cell count reference ranges are not reported, since discordance with absolute values may lead to misinterpretation of CBC data. Current Interpretive Data was last revised on 2017. Testing performed by: [address] [address] Imm gran pct 0.8 % [facility] Comment: Interpretive Data Percent cell count reference ranges are not reported, since discordance with absolute values may lead to misinterpretation of CBC data. Current Interpretive Data was last revised on 2017. Testing performed by: [address] [address] Lymphocyte pct 14.2 % [facility] Comment: Interpretive Data Percent cell count reference ranges are not reported, since discordance with absolute values may lead to misinterpretation of CBC data. Current Interpretive Data was last revised on 2017. Testing performed by: [address] [address] Monocyte pct 7.8 % [facility] Comment: Interpretive Data Percent cell count reference ranges are not reported, since discordance with absolute values may lead to misinterpretation of CBC data. Current Interpretive Data was last revised on 2017. Testing performed by: [address] [address] Eosinophil pct 0.8 % [facility] Comment: Interpretive Data Percent cell count reference ranges are not reported, since discordance with absolute values may lead to misinterpretation of CBC data. Current Interpretive Data was last revised on 2017. Testing performed by: [address] [address] Basophil pct 0.2 % [facility] Comment: Interpretive Data Percent cell count reference ranges are not reported, since discordance with absolute values may lead to misinterpretation of CBC data. Current Interpretive Data was last revised on 2017. Testing performed by: [address] [address] Blood 02/06/2024 8:47 AM CDT 02/06/2024 8:52 AM CDT Cornelius Garcia DO LAB BLOOD ORDERABLES Final R esult [place] [address] [facility] Department of Laboratories [place], [place] [id number] * (ABNORMAL) CBC with auto differential (02/06/2024 8:47 AM CDT) [facility] Signature WBC 5.1 3.8 - 9.9 K/cumm Comment:Testing performed by : [address] [address] Hgb 11.0(L) 11.9 - 15.5 g/dL [place] Comment:Testing performed by : [address], [address] Hct 34.3(L) 35.6 - 45.5 % [facility] Comment:Testing performed by : [address] [address] Plt 138(L) 150 - 400 K/cumm [place] Comment:Testing performed by : [address], [address] MPV 11.1 9.1 - 12.3 fL [place] Comment:Testing performed by : [address], [address] RBC 4.06 3.90 - 5.20 M/cumm [place] Comment:Testing performed by : [address] [address] MCV 84.5 81.3 - 96.4 fL [place] Comment:Testing performed by : [address] [address] MCH 27.1 27.1 - 33.3 pg [place] Comment:Testing performed by : [address], [address] MCHC 32.1(L) 32.3 - 35.7 g/dL [place] Comment:Testing performed by : [address] [address] RDW CV 13.1 11.1 - 14.9 % [facility] Comment:Testing performed by : [address], [address] RDW SD 39.6 35.7 - 48.1 fL [place] GARCIA Comment:Testing performed by : [address] [address] NRBC abs 0.00 0.00 - 0.01 K/cumm [place] GARCIA Comment:Testing performed by : [address] [address] Blood 02/06/2024 8:47 AM CDT 02/06/2024 8:52 AM CDT Cornelius Garcia DO LAB BLOOD ORDERABLES Final R esult [place] [id number] [facility] [place] [address] * Ferritin (02/06/2024 8:47 AM CDT) Ferritin 23 15 - 150 ng/mL Comment:Testing performed by : [address], [address] Blood 02/06/2024 8:47 AM CDT 02/06/2024 9:53 AM CDT Cornelius Garcia DO LAB BLOOD ORDERABLES Final R esult Performing Organization Address City/[facility]/ZIP Co de Phone Number [address] [place] [address] * Iron profile w/ IBC (02/06/2024 8:47 AM CDT) Iron 104 35 - 145 mcg/dL Comment:Testing performed by : [address] [address] TIBC 355 250 - 400 mcg/dL [place] GARCIA Comment:Testing performed by : [address] [address] Transferrin saturation 29 20 - 50 % [place] GARCIA Comment:Testing performed by : [address] [address] Blood 02/06/2024 8:47 AM CDT 02/06/2024 9:53 AM CDT Cornelius Garcia DO LAB BLOOD ORDERABLES Final R esult [place] [address] [facility] [place] [address] documented in this encounter Visit Diagnoses Diagnosis Iron deficiency anemia due to chronic blood loss Iron deficiency anemia secondary to blood loss (chronic) documented in this encounter Orders Appointment Requests Count Last Ordered Date Fi rst Ordered Date ONCBCN LAB APPOINTMENT 1 02/06/2024 documented in this encounter Care Teams Shredder/Granulator Operator Relationship Specialty Start Date End Date Starr Bran PA [address] [place] [address] PCP - General Internal Medicine 12/30/18 Bibiana Schuler MD [address] [place] [address] Consulting Physician Gastroenterology 05/11/21 Cornelius Garcia DO [address] [place] [address] MEDICAL ONCOLOGY, [facility] [address] [place] [address] Medical Oncologist/Hematologis t Hematology and Oncology 09/26/21 Madhu Brito MD [facility] [place] [address] Consulting Physician Rheumatology 05/22/23 documented as of this encounter
--- OUTSIDE RECORDS SUMMARY | 2024-07-18 20:26 | XMS_ITS | Encounter Summary ---
Author Organization [facility] Healthcare Address [address] [place] [address] Care Team Providers Care Subsystems Engineer Name Role Phone Starr Bran Primary Care Provider [phone] Bibiana Schuler MD Unavailable [phone] Cornelius Garcia DO Unavailable [phone] Madhu Brito MD Unavailable [phone] Reason for Visit * Reason Comments B12 Injection Encounter Details Date Type Department Care Team (Latest Contact Info) Description 01/22/2024 8:00 AM CDT Clinical Support [facility] Medical [facility] Family Medicine [address] [place] [address] Starr Bran PA [address] [facility] [address] [place] [id number] B12 deficiency (Primary Dx); Systemic sclerosis (HCC); History of pulmonary embolus (PE) Social History [...] on file 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 Gender Identity Female 02/02/2021 7:25 AM CDT Sexual Orientation Straight 02/02/2021 7: 25 AM CDT documented as of this encounter Last Filed Vital Signs Vital Sign Reading Time Taken Comments Blood Pressure - - Pulse 72 01/22/2024 8:10 AM CDT Temperature - - Respiratory Rate - - Oxygen Saturation 97% 01/22/2024 8:10 AM CDT Inhaled Oxygen Concentration - - Weight - - Height - - Body Mass Index - - documented in this encounter Ordered Prescriptions Prescription Sig Dispense Quantity Refills Last Filled Start Date End Date apixaban (ELIQUIS) 2.5 mg tabletIndications: Other (complete free text reason below),History DVT/PE and now additional diagnosis scleroderma. VTE prophylaxis Take 1 tablet (2.5 mg total) by mouth 2 (two) times a day 180 tablet 01/22/2024 01/28/2024 documented in this encounter Progress Notes * Starr Bran PA - 01/22/2024 8:00 AM CDT Images from the original note were not included. Subjective/Objective Patient ID: Viktoriya Bell is a 58 y.o. female. Chief Complaint B12 Injection HPI Patient presented today for her regular B12 injection. I sat and talked with her regarding a conversation I had with the certified medical transcriptionist Dr. Garcia. She had history DVT and PE few years ago. She was treated with anticoagulation tolerated well. Evaluation with Dr. Garcia allow for her to discontinue the anticoagulation and she has just beendoing an aspirin. She had a new diagnosis of scleroderma in the last year. She continues to follow regular with Rheumatology She presented in the last week with lower extremity pain. There was concern for DVT. Venous Dopplerdid rule this out. I reached out to Dr. Garcia regarding the additional diagnosis of scleroderma and her increased risk for blood clotting issues his recommendation is to consider anticoagulation. I discussed this with the patient reviewing risks benefits alternatives side effects and proper use. She has tolerated the anticoagulation in the past without any lumps. She states she is in agreement with starting the medication Eliquis 2.5 b.i.d. will be sent to the pharmacy. She is to monitor for any bleeding symptoms as she has history of anemia. She will be seeing Dr. Garcia in mid January so he can follow-up with any further questions or concerns Review of Systems See HPI Vitals: 01/22/24 0810 Pulse: 72 SpO2: 97% Physical Exam Constitutional: Appearance: Normal appearance. HENT: Head: Normocephalic and atraumatic. Neurological: Mental Status: She is alert. Assessment/Plan Diagnoses and all orders for this visit: B12 deficiency (E53.8) (Primary) Assessment & Plan: Continue B12 Systemic sclerosis (HCC) (M34.9) Assessment & Plan: Continue managing pathology History of pulmonary embolus (PE) (Z86.711) Assessment & Plan: History embolism, DVT and . This is decide and dry. Started to if she would any signs or symptoms of the day she immediately *This note is dictated using [employer] ([employer]) voice recognition software, variances in spelling and vocabulary are possible and unintentional.* Starr Bran PA-C documented in this encounter Miscellaneous Notes * Assessment & Plan Note - Starr Bran PA - 02/02/2024 9:49 PM CDT Associated Problem(s): B12 deficiency Continue B12 * Assessment & Plan Note - Starr Bran PA - 02/02/2024 9:49 PM CDT Associated Problem(s): Systemic sclerosis (HCC) Continue managing pathology * Assessment & Plan Note - Starr Bran PA - 02/02/2024 9:49 PM CDT Associated Problem(s): History of pulmonary embolus (PE) History embolism, DVT and . This is decide and dry. Started to if she would any signs or symptoms of the day she immediately documented in this encounter Plan of Treatment Not on file documented as of this encounter Visit Diagnoses Diagnosis B12 deficiency- Primary Systemic sclerosis (HCC) Systemic sclerosis History of pulmonary embolus (PE) documented in this encounter Administered Medications Active Administered Medications - up to 3 most recent administrations Medication Order MAR Action Action Date Dose Rate Site cyanocobalamin (Vitamin B-12) injection 1,000 mcg 1,000 mcg, intramuscular, Every 30 days, First dose on Sat12/18/23 at 0900Indications:Vitamin B12 deficiency Given 01/22/2024 8:13 AM CDT 1,000 mcg Left Dorsogluteal/Butt ock Given 12/18/2023 8:07 AM CDT 1,000 mcg Le ft Deltoid documented in this encounter Care Teams Subsystems Engineer Relationship Specialty Start Date End Date Starr Bran PA [address] [place] [address] PCP - General Internal Medicine 12/30/18 Bibiana Schuler MD [address] [place] [address] Consulting Physician Gastroenterology 05/11/21 Cornelius Garcia DO [address] [place] [address] MEDICAL ONCOLOGY, [address] [place] [address] Medical Oncologist/Hematologis t Hematology and Oncology 09/26/21 Madhu Brito MD [address] [place] [address] Consulting Physician Rheumatology 05/22/23 documented as of this encounter
--- OUTSIDE RECORDS SUMMARY | 2024-07-18 20:26 | XMS_ITS | Encounter Summary ---
Author Organization [facility] Address [address] [place] [address] Phone Care Team Providers Care Sales Representative Door To Door Name Role Phone Starr Bran Primary Care Provider [phone] Bibiana Schuler MD Unavailable [phone] Cornelius Garcia DO Unavailable [phone] Madhu Brito MD Unavailable [phone] Reason for Referral * Diagnostic Imaging (Routine) - Closed Specialty Diagnoses / Procedures Referred By Hung gao Referred To Contact Diagnoses Arthralgia of right hand Procedures US Hand Complete Jing Erwin PA [address] [place] [address] Phone: tel: fax: External Order Referral ID Status Reason Start Date Expiration Date Visits Re quested Visits Authorized [id number] Closed 12/09/2023 01/07/2025 1 1 Encounter Details Date Type Department Care Team (Late st Contact Info) Description 12/09/2023 1:30 PM CDT Office Visit [facility] [address] [place] [address] Jing Erwin PA [address] [place] [address] Systemic sclerosis (HCC) (Primary Dx); PHAN (dyspnea on exertion); Arthralgia of right hand; occ therapist current use of therapeutic drug; Iron deficiency anemia due to chronic blood [...] on file 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 Gender Identity Female 02/02/2021 7:25 AM CDT Sexual Orientation Straight 02/02/2021 7: 25 AM CDT documented as of this encounter Last Filed Vital Signs Vital Sign Reading Time Taken Comments Blood Pressure 140/80 12/09/2023 1:24 PM CDT Pulse 90 12/09/2023 1:24 PM CDT Temperature - - Respiratory Rate - - Oxygen Saturation 96% 12/09/2023 1:24 PM CDT Inhaled Oxygen Concentration - - Weight 96 kg (211 lb 9.6 oz) 12/09/2023 1:24 PM CDT Height 157.5 cm (5' 2 ) 12/09/2023 1:24 PM CDT Body Mass Index 38.7 12/09/2023 1:24 PM CDT documented in this encounter Progress Notes * Jing Erwin PA - 12/09/2023 1:30 PM CDT Images from the original note were not included. Subjective/Objective Patient ID: Viktoriya Bell is a 58 y.o. female. Chief Complaint SSc HPI Returns for routine follow up. Has been having more pain and swelling in the right hand. Had wedding ring resized. Denies rashes, PHAN, dysphagia, or raynaud's. Notes skin peeling more at the tips of her fingers. Denies digital ulcerations. Having swelling and pain in the right knee and RLE. Had US to rule out DVT. Found to have lindsay's cyst and is scheduled to see ortho. Denies fevers, infections, rashes, mouth sores, cough, dyspnea, n/v. Joint pain today is 3 /10. [...] Skin: Negative for rash. Vitals: Vitals BP 140/80 Pulse 90 Ht 157.5 cm (5' 2 ) Wt 96 kg (211 lb 9.6 oz) SpO2 96% BMI 38.70 kg/m?? Body mass index is 38.7 kg/m??. Bold X is a current medication. [...] round. Pulmonary/Chest: Effort normal. Musculoskeletal: See cdai. Soft tissue puffiness, but no obvious synovitis Neurological: alert and oriented to person, place, and time. Skin: Skin is warm and dry. No rash noted. No sclerodactyly or telangiectasias. Psychiatric: normal mood and affect. speech is normal and behavior is normal. Cognition and memory are normal. Patient Global: 30 mm Provider Global: 30 mm CDAI: 10 In remission: 0-3 Low: 4-10 Moderate: 11-22 High: 23 or > Labs Lab Results Component Value Date WBC 5.3 09/12/2023 HGB 12.2 09/12/2023 HCT 35.3 09/12/2023 MCV 85.1 09/12/2023 Lab Results Component Value Date GLUCOSE 89 09/12/2023 CALCIUM 9.8 09/12/2023 SODIUM 139 09/12/2023 POTASSIUM 3.8 09/12/2023 CO2 26 09/12/2023 CHLORIDE 102 09/12/2023 BUNSER 12 09/12/2023 CREATININE 0.56 09/12/2023 Lab Results Component Value Date ALT 15 09/12/2023 AST 13 09/12/2023 ALKPHOS 76 09/12/2023 BILITOT 0.4 09/12/2023 Lab Results Component Value Date SEDRATE 2 09/12/2023 Lab Results Component Value Date CRP 3.6 09/12/2023 LABS: 05/18/23: Negative LAC, negative ALEXA, CRP 0.29mg/dL, ESR 6, Hep panel negative AVISE 05/18/23: +AMINA 1:2560 centromere, CENP >240, RF IgM 20, normal C3/4 04/2023: RBC 3.58, Hgb 10.5, Hct 31.7, B12 479, TIBC 303, UIBC 264, iron 39, iron sat 13 % (L), HgA1c 4.9%, lipid panel nl, CMP nl, TSH 1.70, +AMINA >1:1280 centromere 02/2023: +AMINA, dsDNA <1, CLINICAL REVIEW SPECIALIST <0.2, SM <0.2, SS-A <0.2, SS-B <0.2 IMAGING: PFT 08/2023: FEV1 88%, FVC 92%, FEV1/FVC [...] Systemic sclerosis (HCC) (Primary) Assessment & Plan: 58-year-old female with PMHx of RLS, anemia [...] Orders: - Comprehensive metabolic panel; Future - CBC with auto differential; Future - Erythrocyte sedimentation rate; Future - CRP (acute phase); Future PHAN (dyspnea on exertion) Assessment & Plan: CXR unremarkable. New diagnosis of systemic sclerosis. Baseline PFT and TTE are unremarkable for signs of PAH. Grade 1 diastolic dysfunction noted on TTE but this was also seen on past TTE in 2020. PFT showed only mildly reduced diffuse capacity. Arthralgia of right hand Assessment & Plan: Elevated RF (20) on AVISE. C/o pain and AM swelling/stiffness in the hands (R>L) that appears tohave progressed so will repeat R hand/wrist US to monitor for any progression to suggest active RA. 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 Improvement of anemia since starting treatment with cellcept in 06/2023. Jing Erwin PA-C Cosigned by Madhu Brito MD at 12/09/2023 5:32 PM CDT documented in this encounter Miscellaneous Notes * Assessment & Plan Note - Jing Erwin PA - 12/09/2023 1:44 PM CDT Associated Problem(s): Systemic sclerosis (HCC) 58-year-old female with PMHx of RLS, anemia [...] Plan Note - Jing Erwin PA - 12/09/2023 12:04 PM CDTAssociated Problem(s): Arthralgia Elevated RF (20) on AVISE. C/o pain and AM swelling/stiffness in the hands (R>L) that appears tohave progressed so will repeat R hand/wrist US to monitor for any progression to suggest active RA. * Assessment & Plan Note - Jing Erwin PA - 12/09/2023 12:03 PM CDTAssociated Problem(s): PHAN (dyspnea on exertion) CXR unremarkable. New diagnosis of systemic sclerosis. Baseline PFT and TTE are unremarkable for signs of PAH. Grade 1 diastolic dysfunction noted on TTE but this was also seen on past TTE in 2020. PFT showed only mildly reduced diffuse capacity. 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 Improvement of anemia since starting treatment with cellcept in 06/2023. documented in this encounter Plan of Treatment Pending Results Name Type Priority Associated Diagnoses Date /Time US Hand Complete Imaging Schedule Routin e, Read Routine (OP Routine) Arthralgia of right hand 12/18/2023 10:53 AM CDT Scheduled Orders Name Type Priority Associated Diagnoses Orde r Schedule US Hand Complete Imaging Schedule Routin e, Read Routine (OP Routine) Arthralgia of right hand Expected: 12/09/2023, Expires: 12/08/2024 documented as of this encounter Procedures Procedure Name Priority Date/Time Associated Diagnosis Comments CBC WITH AUTO DIFFERENTIAL Routine 12/09/2023 2:00 PM CDT Systemic sclerosis (HCC) occ therapist current use of therapeutic drug ERYTHROCYTE SEDIMENTATION RATE Routine 12/09/2023 2:00 PM CDT Systemic sclerosis (HCC) USP current use of therapeutic drug CRP (ACUTE PHASE) Routine 12/09/2023 2:0 0 PM CDT Systemic sclerosis (HCC) occ therapist current use of therapeutic drug COMPREHENSIVE METABOLIC PANEL Routine 12/09/2023 2:00 PM CDT Systemic sclerosis (HCC) occ therapist current use of therapeutic drug documented in this encounter Results * (ABNORMAL) CRP (acute phase) (12/09/2023 2:00 PM CDT) C-RP 10.8(H) <8.0 mg/L [facility] Blood 12/09/2023 2:00 PM CDT 12/09/2023 2:01 PM CDT Jing SALVADOR LAB BLOOD ORDERABLES Final Result [facility] [address] [address] [place] [phone] * Erythrocyte sedimentation rate (12/09/2023 2:00 PM CDT) Erythrocyte sedimentation rate 9 < OR = 30 mm/h [facility] Blood 12/09/2023 2:00 PM CDT 12/09/2023 2:01 PM CDT Jing SALVADOR LAB BLOOD ORDERABLES Final Result [facility] [address] [address] [place] [phone] * (ABNORMAL) CBC with auto differential (12/09/2023 2:00 PM CDT) Pathologist [facility] WBC 5.8 3.8 - 10.8 Thousand/u L [facility] RBC, POC 3.77(L) 3.80 - 5.10 Million/uL [facility] Hgb 10.9(L) 11.7 - 15.5 g/dL [facility] Hct 33.0(L) 35.0 - 45.0 % [facility] MCV 87.5 80.0 - 100.0 fL [facility] MCH 28.9 27.0 - 33.0 pg [facility] MCHC 33.0 32.0 - 36.0 g/dL [facility] Rdw 13.3 11.0 - 15.0 % [facility] Platelets 264 140 - 400 Thousand/u L [facility] MPV 10.1 7.5 - 12.5 fL [facility] Neutrophils, abs 4,222 1,500 - 7,800 cells/uL [facility] Lymphocytes, abs 1,067 850 - 3,900 cells/uL [facility] Monocyte abs 487 200 - 950 cells/uL [facility] Eosinophils, abs 12(L) 15 - 500 cells/uL [facility] Basophils, abs 12 0 - 200 cells/uL [facility] Neutrophils 72.8 % [facility] Lymphocyte pct 18.4 % [facility] Monocytes 8.4 % [facility] Eosinophils 0.2 % [facility] Basophils 0.2 % [facility] Blood 12/09/2023 2:00 PM CDT 12/09/2023 2:01 PM CDT Jing SALVADOR LAB BLOOD ORDERABLES Final Result [facility] [address] [address] [place] [phone] * (ABNORMAL) Comprehensive metabolic panel (12/09/2023 2:00 PM CDT) Glucose 118(H) 65 - 99 mg/dL [facility] Comment: ? Fasting reference interval For someone without known diabetes, a glucose value between 100 and 125 mg/dL is consistent with prediabetes and should be confirmed with a follow-up test. BUN 10 7 - 25 mg/dL [facility] Creatinine 0.65 0.50 - 1.03 mg/dL [facility] eGFR 101 > OR = 60 mL/min/1.7 3m2 [facility] [...] - 32 mmol/L [facility] Calcium 9.2 8.6 - 10.4 mg/dL [facility] Protein, sr 6.2 6.1 - 8.1 g/dL [facility] Albumin 4.0 3.6 - 5.1 g/dL [facility] GLOBULIN 2.2 1.9 - 3.7 g/dL (calc) [facility] Alb/glob ratio 1.8 1.0 - 2.5 (calc) [facility] Bilirubin, total 0.2 0.2 - 1.2 mg/dL [facility] Alk phos 66 37 - 153 U/L [facility] AST 12 10 - 35 U/L [facility] ALT (SGPT) 11 6 - 29 U/L [facility] Blood 12/09/2023 2:00 PM CDT 12/09/2023 2:01 PM CDT Jing SALVADOR LAB BLOOD ORDERABLES Final Result [facility] [address] [place] [address] documented in this encounter Visit Diagnoses Diagnosis Systemic sclerosis (HCC)- Primary Systemic sclerosis PHAN (dyspnea on exertion) Other dyspnea and respiratory abnormality Arthralgia of right hand USP current use of therapeutic drug Iron deficiency anemia due to chronic blood loss Iron deficiency anemia secondary to blood loss (chronic) documented in this encounter Care Teams Sales Representative Door To Door Relationship Specialty Start Date End Date Starr Bran PA [address] [place] [address] PCP - General Internal Medicine 12/30/18 Bibiana Schuler MD [address] [place] [address] Consulting Physician Gastroenterology 05/11/21 Cornelius Garcia DO [address] [facility], [facility] [address] [place] [address] Medical Oncologist/Hematologis t Hematology and Oncology 09/26/21 Madhu Brito MD [address] [place] [address] Consulting Physician Rheumatology 05/22/23 documented as of this encounter
--- OUTSIDE RECORDS SUMMARY | 2024-07-18 20:26 | XMS_ITS | Encounter Summary ---
Author Organization [facility] Address [address] [place] [address] Care Team Providers Care Insole Bottom Filler Name Role Phone Starr Bran Primary Care Provider [phone] Bibiana Schuler MD Unavailable [phone] Cornelius Garcia DO Unavailable [phone] Madhu Brito MD Unavailable [phone] Reason for Visit * Reason Comments B12 Injection Encounter Details Date Type Department Care Team (Latest Contact Info) Description 12/18/2023 8:00 AM CDT Clinical Support [facility] Family Medicine [address] [address] Vitamin B12 deficiency (Primary Dx) Social History Tobacco [...] on file 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 Gender Identity Female 02/02/2021 7:25 AM CDT Sexual Orientation Straight 02/02/2021 7: 25 AM CDT documented as of this encounter Plan of Treatment Not on file documented as of this encounter Visit Diagnoses Diagnosis Vitamin B12 deficiency- Primary Other B-complex deficiencies documented in this encounter Administered Medications Active [...] Deltoid documented in this encounter Care Teams Insole Bottom Filler Relationship Specialty Start Date End Date Starr Bran PA [address] [place] [address] PCP - General Internal Medicine 12/30/18 Bibiana Schuler MD [address] [place] [address] Consulting Physician Gastroenterology 05/11/21 Cornelius Garcia DO [address] [place] [address] MEDICAL ONCOLOGY, [address] [place] [address] Medical Oncologist/Hematologis t Hematology and Oncology 09/26/21 Madhu Brito MD [address] [place] [address] Consulting Physician Rheumatology 05/22/23 documented as of this encounter
--- OUTSIDE RECORDS SUMMARY | 2024-07-18 20:26 | XMS_ITS | Encounter Summary ---
Author Organization [facility] Address [address] [place] [address] Care Team Providers Care Distributor Sales Manager Name Role Phone Starr Bran Primary Care Provider [phone] Bibiana Schuler MD Unavailable [phone] Cornelius Garcia DO Unavailable [phone] Madhu Brito MD Unavailable [phone] Reason for Referral * Diagnostic Imaging (Routine) - Closed Specialty Diagnoses / Procedures Referred By Hung gao Referred To Contact Diagnoses Right calf pain Procedures US VEIN DUPLEX LOWER EXTREMITY RIGHT LIMITED, UNILATERAL Starr Bran PA [address] [place] [id number] Phone: tel: fax: [address] [address] Referral ID Status Reason Start Date Expiration Date Visits Re quested Visits Authorized [id number] Closed 11/20/2023 12/19/2024 1 1 Reason for Visit * Diagnostic Imaging (Routine) - Closed Specialty Diagnoses / Procedures Referred By Hung gao Referred To Contact Diagnoses Right calf pain Procedures US VEIN DUPLEX LOWER EXTREMITY RIGHT LIMITED, UNILATERAL Starr Bran PA [address] [place] [id number] Phone: tel: fax: 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 Gender Identity Female 02/02/2021 7:25 AM CDT Sexual Orientation Straight 02/02/2021 7: 25 AM CDT documented as of this encounter Medications at Time of Discharge multivitamin tablet daily omeprazole (PriLOSEC) 20 mg capsule Take 2 capsules (40 mg total) by mouth daily aspirin 81 mg enteric coated tablet Take 1 tablet (81 mg total) by mouth daily 05/07/2024 FeroSuL 325 mg (65 mg iron) tabletIndication s:Low vitamin B12 level TAKE 1 TABLET BY MOUTH TWICE DAILY 180 tablet 2 02/19/2022 12/11/2023 gabapentin (NEURONTIN) 100 mg capsuleIndicatio ns:Vasomotor symptoms [...] 07/09/2024 mycophenolate mofetil (CELLCEPT) 500 mg tablet Take 2 tablets (1,000 mg total) by mouth 2 (two) times a day 360 tablet 09/12/2023 01/13/2024 venlafaxine XR (EFFEXOR-XR) 75 mg 24 hr [...] Procedure Name Priority Date/Time Associated Diagnosis Comments US VEIN DUPLEX LOWER EXTREMITY RIGHT LIMITED Schedule SCARLET, Read SCARLET (Appt Today, Awaiting Results) 11/20/2023 11:39 AM CDT Right calf pain documented in this encounter Results * US VEIN DUPLEX LOWER EXTREMITY RIGHT LIMITED, UNILATERAL (11/20/2023 11:39 AM CDT) Anatomical Region Laterality Modality Vascular Right Ultrasound 11/20/2023 Narrative 11/25/2023 12:01 PM CDT [employer] Job ID: [id number] [employer] Document ID: [id number] Dictated date/time: [id number] LOWER EXTREMITY VENOUS DUPLEX REASON FOR EXAM Leg pain. FINDINGS Veins throughout the right lower extremity show spontaneous and phasic flow with normal augmentation. ??All veins are competent and compressible. Nonvascular structure right popliteal fossa measuring 1.1 x 3.9 cm. ??Left common femoral vein shows normal compressibility as well. OVERALL IMPRESSION Negative for DVT right lower extremity, left common femoral vein. Job ID/Internal Job ID: ??[id number] us Starr SALVADOR IMG US PROCEDURES Final Re sult documented in this encounter Visit Diagnoses Diagnosis Right calf pain documented in this encounter Care Teams Distributor Sales Manager Relationship Specialty Start Date End Date Starr Bran PA [address] [place] [address] PCP - General Internal Medicine 12/30/18 Bibiana Schuler MD [address] [place] [address] Consulting Physician Gastroenterology 05/11/21 Cornelius Garcia DO [address] [place] [address] MEDICAL ONCOLOGY, [facility] [address] [place] [address] Medical Oncologist/Hematologis t Hematology and Oncology 09/26/21 Madhu Brito MD [address] [place] [address] Consulting Physician Rheumatology 05/22/23 documented as of this encounter
--- OUTSIDE RECORDS SUMMARY | 2024-07-18 20:26 | XMS_ITS | Encounter Summary ---
Author Organization [facility] Healthcare Address [address] [place] [address] Care Team Providers Care Gasket Inspector Name Role Phone Starr Bran Primary Care Provider [phone] Bibiana Schuler MD Unavailable [phone] Cornelius Garcia DO Unavailable [phone] Madhu Brito MD Unavailable [phone] Reason for Referral * Consultation (Routine) - Closed Specialty Diagnoses / Procedures Referred By Hung t Referred To Contact Orthopedic Surgery Diagnoses Mariano's cyst of knee, right Starr Bran PA [address] [facility] [address] [place] [address] Phone: tel: fax: Zachary Mcdaniel MD [address] [facility] [address] [place] [address] Phone: tel: fax: Referral ID Status Reason Start Date Expiration Date V isits Requested Visits Authorized [id number] Closed Specialty Services Required 11/21/2023 12/20/2024 1 1 Question Answer Please select the performing region: [facility] [[id number]] Please select the performing department: [facility] [place] [facility] [place] [facility] [address] [[id number]] To provider: ZACHARY MCDANIEL [[id number]] # of visits: [address] Mcdaniel or first available. Symptomatic Right bakers cyst. Noted on venous doppler when ruling out DVT. * Diagnostic Imaging (Routine) - Closed Specialty Diagnoses / Procedures Referred By Hung gao Referred To Contact Diagnoses Right calf pain Procedures US VEIN DUPLEX LOWER EXTREMITY RIGHT LIMITED, UNILATERAL Starr Bran PA [address] [place] [address] Phone: tel: fax: [address] [phone] Referral ID Status Reason Start Date Expiration Date Visits Re quested Visits Authorized [id number] Closed 11/20/2023 12/19/2024 1 1 Reason for Visit * Reason Comments Follow-up Pt states that since her prior hospital stay for blood clots in her lung 3 yrs ago 11/16, on 11/18/23 pt started to have pain and edema in her RT LEG, pt is fearful that it may be a blot clot in her leg. She would like to have this checked. Pt is also receiving her monthly B12 inj. Encounter Details Date Type Department Care Team (Late st Contact Info) Description 11/20/2023 8:00 AM CDT Office Visit [facility] Family Medicine [address] [facility] [email or web address] [place] [address] Starr Bran PA [address] [facility] [address] [place] [address] Right calf pain (Primary Dx); Mariano's cyst of knee, right; Systemic sclerosis (HCC); History of DVT (deep vein thrombosis); B12 deficiency; BMI 36.0-36.9,adult; Morbid obesity (HCC) Social History Tobacco Use Types Packs/Day Years [...] on file 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 Gender Identity Female 02/02/2021 7:25 AM CDT Sexual Orientation Straight 02/02/2021 7: 25 AM CDT documented as of this encounter Last Filed Vital Signs Vital Sign Reading Time Taken Comments Blood Pressure 128/80 11/20/2023 8:21 AM CDT Pulse 80 11/20/2023 8:21 AM CDT Temperature 37.2 ??C (98.9 ??F) 11/20/2023 8:21 AM CD T Respiratory Rate - - Oxygen Saturation 96% 11/20/2023 8:21 AM CDT Inhaled Oxygen Concentration - - Weight 93.9 kg (207 lb) 11/20/2023 8:21 AM CDT Height 160 cm (5' 3 ) 11/20/2023 8:21 AM CDT Body Mass Index 36.67 11/20/2023 8:21 AM CDT documented in this encounter Progress Notes * Starr Bran PA - 11/20/2023 8:00 AM CDT Images from the original note were not included. Subjective/Objective Patient ID: Viktoriya Bell is a 58 y.o. female. Chief Complaint Follow-up (Pt states that since her prior hospital stay for blood clots in her lung 3 yrs ago 11/16, on 11/18/23 pt started to have pain and edema in her RT LEG, pt is fearful that it may be a blot clot in her leg. She would like to have this checked. Pt is also receiving her monthly B12 inj. ) HPI Patient presents for a b12 injection today but notes increased pain in right leg. Pain is behind the knee into the calf. She feels like it is swollen. Denies redness or warmth. Able to get comfortable last night. She is worried she might be SOB after going up the stairs. Patient has a history of DVTs and bilateral PEs couple of years ago. Was on AC for a little over a year. Not currently on any type of anticoagulation. 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 Currently being treated with CellCept; Review of Systems See HPI Vitals: 11/20/23 0821 BP: 128/80 BP Location: Right arm Patient Position: Sitting Pulse: 80 Temp: 37.2 ??C (98.9 ??F) TempSrc: Oral SpO2: 96% Weight: 93.9 kg (207 lb) Height: 160 cm (5' 3 ) Physical [...] soft. Tenderness: There is no abdominal tenderness. Musculoskeletal: Comments: Right left if slightly larger than the left. She is waking with a normal gait. Pain with compression of the calf. No significant swelling behind the knee Positive Alexander's Skin: General: Skin is warm and dry. Findings: No rash. Neurological: Mental Status: She is alert and oriented to person, place, and time. Assessment/Plan Diagnoses and all orders for this visit: Right calf pain (M79.661) (Primary) Assessment & Plan: Patient with right calf lower extremity pain [...] is currently pretty symptomatic affecting her movement. Orders: - US VEIN DUPLEX LOWER EXTREMITY RIGHT LIMITED, UNILATERAL; Future Mariano's cyst of knee, right (M71.21) Assessment & Plan: Patient with right calf lower extremity pain [...] is currently pretty symptomatic affecting her movement. Orders: - Ambulatory referral to Orthopedic Surgery; Future Systemic sclerosis (HCC) (M34.9) Assessment & Plan: Continue per Rheumatology. Patient is at a higher risk for clotting issues with the scleroderma andhistory of PE DVT. Will reach out to her staff psychiatrist to discuss +/- AC prophylaxis with this patient History of DVT (deep vein thrombosis) (Z86.718) Assessment & Plan: Patient had a right DVT with bilateral pulmonary emboli in 2020. She was on anticoagulation for about a year. Has been following with Hematology and was decided to discontinue the anticoagulation andmonitor. She has since been diagnosed with scleroderma which can increase that risk of clotting issues. I will reach out her staff psychiatrist and inquire about the benefit and risks of monitoring versus lifetime anticoagulation based on the new diagnosis. B12 deficiency (E53.8) Assessment & Plan: B12 injection provided in the office today Orders: - cyanocobalamin (Vitamin B-12) injection 1,000 mcg; Inject 1 mL (1,000 mcg total) into the muscle as instructed once BMI 36.0-36.9,adult (Z68.36) Assessment & Plan: Discussed the patient's BMI. The BMI is above average. BMI management plan is completed. BMI Follow-up includes: nutrition counseling, exercise counseling and education provided. Morbid obesity (HCC) (E66.01) Assessment & Plan: Discussed the patient's BMI. The BMI is above average. BMI management plan is completed. BMI Follow-up includes: nutrition counseling, exercise counseling and education provided. Patient has an obesity-related condition (not limited to: hypertension, obstructive sleep apnea, osteoarthritis, hyperlipidemia, diabetes, etc.). Therefore, morbid obesity may be documented for patients with a BMI between 35.00-39.99. *This note is dictated using [employer] medical voice recognition software, variances in spelling and vocabulary are possible and unintentional.* Starr Bran PA-C documented in this encounter Miscellaneous Notes * Assessment & Plan Note - Starr Bran PA - 11/21/2023 8:36 AM CDT Associated Problem(s): History of DVT (deep vein thrombosis) Patient had a right DVT with bilateral pulmonary emboli in 2020. She was on anticoagulation for about a year. Has been following with Hematology and was decided to discontinue the anticoagulation andmonitor. She has since been diagnosed with scleroderma which can increase that risk of clotting issues. I will reach out her staff psychiatrist and inquire about the benefit and risks of monitoring versus lifetime anticoagulation based on the new diagnosis. * Assessment & Plan Note - Starr Bran PA - 11/21/2023 8:35 AM CDT Associated Problem(s): Right calf pain (Resolved 02/02/2024) Patient with right calf lower extremity pain [...] is currently pretty symptomatic affecting her movement. * Assessment & Plan Note - Starr Bran PA - 11/21/2023 8:34 AM CDT Associated Problem(s): B12 deficiency B12 injection provided in the office today * Assessment & Plan Note - Starr Bran PA - 11/21/2023 8:34 AM CDT Associated Problem(s): Morbid obesity (HCC) Discussed the patient's BMI. The BMI is above average. BMI management plan is completed. BMI Follow-up includes: nutrition counseling, exercise counseling and education provided. Patient has an obesity-related condition (not limited to: hypertension, obstructive sleep apnea, osteoarthritis, hyperlipidemia, diabetes, etc.). Therefore, morbid obesity may be documented for patients with a BMI between 35.00-39.99. * Assessment & Plan Note - Starr Bran PA - 11/21/2023 8:34 AM CDT Associated Problem(s): BMI 38.0-38.9,adult Discussed the patient's BMI. The BMI is above average. BMI management plan is completed. BMI Follow-up includes: nutrition counseling, exercise counseling and education provided. * Assessment & Plan Note - Starr Bran PA - 11/21/2023 8:34 AM CDT Associated Problem(s): Mariano's cyst of knee, right Patient with right calf lower extremity pain [...] is currently pretty symptomatic affecting her movement. * Assessment & Plan Note - Starr Bran PA - 11/21/2023 8:32 AM CDT Associated Problem(s): Systemic sclerosis (HCC) Continue per Rheumatology. Patient is at a higher risk for clotting issues with the scleroderma andhistory of PE DVT. Will reach out to her staff psychiatrist to discuss +/- AC prophylaxis with this patient documented in this encounter Plan of Treatment Scheduled Referrals Name Type Priority Associated Diagnoses Order Schedule Ambulatory referral to Orthopedic Surgery Outpatient Referral Routine Mariano's cyst of knee, right Expected: 12/05/2023 (Approximate), Expires: 11/20/2024 documented as of this encounter Results * US VEIN DUPLEX LOWER EXTREMITY RIGHT LIMITED, UNILATERAL (11/20/2023 11:39 AM CDT) Anatomical Region Laterality Modality Vascular Right Ultrasound 11/20/2023 Narrative 11/25/2023 12:01 PM CDT [employer] Job ID: [id number] Comp[employer] Document ID: [id number] Dictated date/time: [id number] LOWER EXTREMITY VENOUS DUPLEX REASON FOR EXAM [...] common femoral vein. Job ID/Internal Job ID: ??[id number] us Starr SALVADOR IMG US PROCEDURES Final Re sult documented in this encounter Visit Diagnoses Diagnosis Right calf pain- Primary Mariano's cyst of knee, right Systemic sclerosis (HCC) Systemic sclerosis History of DVT (deep vein thrombosis) B12 deficiency BMI 36.0-36.9,adult Morbid obesity (HCC) Morbid obesity Right calf pain documented in this encounter Administered Medications Active [...] Le ft Deltoid Given 09/19/2023 12:10 PM SEAT COVER INSTALLER 1,000 mcg R ight Deltoid documented in this encounter Orders Medications Ordered That Sonido ht Not Have Been Administered Count Last Ordered Date First Ordered Date cyanocobalamin (Vitamin B-12 ) injection 1,000 mcg 1 11/20/2023 documented in this encounter Care Teams Gasket Inspector Relationship Specialty Start Date End Date Starr Bran PA [address] [place] [address] PCP - General Internal Medicine 12/30/18 Bibiana Schuler MD [address] [place] [address] Consulting Physician Gastroenterology 05/11/21 Cornelius Garcia DO [address] [place] [address] MEDICAL ONCOLOGY, [address] [place] [address] Medical Oncologist/Hematologis t Hematology and Oncology 09/26/21 Madhu Brito MD [address] [place] [address] Consulting Physician Rheumatology 05/22/23 documented as of this encounter
--- OUTSIDE RECORDS SUMMARY | 2024-07-18 20:26 | XMS_ITS | Encounter Summary ---
Author Organization [facility] Address [address] [facility] [address] [place] [address] Phone Care Team Providers Care Education Manager Name Role Phone Starr Bran Primary Care Provider [phone] Bibiana Schuler MD Unavailable [phone] Ani Villafana DO Unavailable Madhu Brito MD Unavailable [phone] Reason for Visit * Reason Comments Follow-up Encounter Details Date Type Department Care Team ([facility] st Contact Info) Description 02/06/2024 9:15 AM CDT Office Visit [facility] Oncology [address] [place] [phone] Ani Villafana, DO [address] [place] [id number] History of DVT (deep vein thrombosis) (Primary Dx); History of pulmonary embolus (PE); Iron deficiency [...] on file 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 Gender Identity Female 02/02/2021 7:25 AM CDT Sexual Orientation Straight 02/02/2021 7: 25 AM CDT documented as of this encounter Last Filed Vital Signs Vital Sign Reading Time Taken Comments Blood Pressure 135/69 02/06/2024 8:57 AM CDT Pulse 74 02/06/2024 8:57 AM CDT Temperature 36.8 ??C (98.3 ??F) 02/06/2024 8 :57 AM CDT Respiratory Rate 18 02/06/2024 8:57 AM CDT Oxygen Saturation 98% 02/06/2024 8:5 7 AM CDT Inhaled Oxygen Concentration - - Weight 95.8 kg (211 lb 3.2 oz) 02/06/20 8:57 AM CDT with shoes Height - - Body Mass Index 38.63 12/09/2023 1:24 PM CDT documented in this encounter Progress Notes * Jacquelin Rivero NP - 02/06/2024 9:15 AM CDT Patient ID: Viktoriya Bell is a 58 y.o. female. Primary Care Provider: Starr Bran PA Assessment/Plan 1. Resolved iron deficiency anemia. 2. Status post total abdominal hysterectomy with bilateral salpingo oophorectomy 3. Postmenopausal syndrome 4. Recent EGD shows normal esophagus and duodenum. 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 Recommendations: 1. At this visit, she will continue with oral iron supplementation BID 2. She will continue to follow up with Dr. Schuler as needed. 3. For her night time hot flashes she can continue the Gabapentin 300mg in AM and 100mg in PM. 4. For her night time joint pain, she can continue try a low dose of ibuprofen or tylenol. 5. We will see her again in 3 months for exam and labs. 6. She will continue follow-up with Rheumatology for Scleroderma. 7. She has restarted use of Eliquis 2.5mg BID due to history of DVT/PE and now with new diagnosis of Scleroderma. Patient Active Problem List Diagnosis Essential hypertension [...] B12 deficiency Mariano's cyst of knee, right Diagnoses and all orders for this visit: History of DVT (deep vein thrombosis) (Primary) History of pulmonary embolus (PE) Iron deficiency anemia due to chronic blood loss - Clinic Appointment Request Follow up; ANI VILLAFANA MD; Clinic Appointment Location: [place] [address] Subjective Interval History: A. Iron deficiency anemia. [...] This was discontinued late last year. 6. At last visit, she continued to be on iron supplementation once a day. 7. Her yield clerk performed laparoscopic hysterectomy with bilateral salpingo oophorectomy in early July this year. She did have severe vasomotor symptoms and postmenopausal syndrome. Patient was placed on venlafaxine and this has been increased. 8. At this visit, she still complains of fatigue and is less emotional. 9. Today, Ms. Bell states that she is still fatigued and has been having some shortness of breath. She is still taking her oral iron. She denies nausea and constipation. She had an endoscopy with Dr. Schuler in 05/2022 which showed watermelon stomach . According to the patient, it is her understanding that this can cause bleeding. She was started on prilosec and carafate. She denies bloody or dark stools. 10. Ms. Bell returns today for follow up. She is reporting fatigue and states that she has trouble sleeping due to hot flashes and joint aches. She has shortness of breath with exertion, but denies chest pain. She denies signs of bleeding including blood in her urine and stool. She denies PICA. 11. Ms Bell returns for 6 month follow-up. She reports the hot flashes and joint aches have slightlyimproved as she has started Gabapentin prescribed by her PCP. She does also report she continues tofeel fatigued especially after exertion. She gave an example of yesterday she went up 1 flight of stairs and felt tired after that. She also states at times with exertion her lips feel numb and gets a ringing in her ears but that these symptoms have been present for years . She denies she exercises on a regular basis. She is also under the care of rheumatology within the last couple of months and states she is continuing to have further work-up. She has been diagnosed with Scleroderma. She denies s/s of active bleeding including blood in her urine or stool. 12. 02/06/2024: She returns for follow-up. She continues care with Rheumatology for Scleroderma and continues on Cellcept. She states she is feeling pretty good most of the time. She continues to haveepisodes of mild dyspnea after exertion. She had CXR, ECHO, and PFT done with Rheumatology and all were essentially normal. It was decided after discussion between her PCP and Dr Villafana that she would be restarted on Eliquis for her history of PE/DVT and now with new diagnosis of Scleroderma as she could be at risk for blood clots. She had an incident a few weeks back where she thought she had a DVT but it was a Mariano's cyst. She just restarted the Eliquis yesterday. She will monitor for any s/s of bleeding. Interval Notes: I have reviewed: allergies, current medications, past family history, past medical history, past social history, past surgical history and problem list HPI Review of Systems Constitutional: Negative. HENT: Negative. Eyes: Negative. Respiratory: Positive for shortness of breath (occasional mild). Cardiovascular: Negative. Gastrointestinal: Negative. Genitourinary: Negative. Neurological: Positive for dizziness (occasional). Hematological: Negative. Psychiatric/Behavioral: Positive for depression. All other systems reviewed and are negative. Pain: negative. Objective Physical Exam: Vital Signs for this encounter: BSA: 2.05 meters squared BP 135/69 (BP Location: Left arm) Pulse 74 Temp 36.8 ??C (98.3 ??F) (Oral) Resp 18 Wt 95.8 kg (211 lb 3.2 oz) Comment: with shoes SpO2 98% BMI 38.63 kg/m?? Physical Exam Constitutional: Appearance: Normal appearance. [...] Results: WBC Date Value Ref Range Status 02/06/2024 5.1 3.8 - 9.9 K/cumm Final Comment: Testing performed by: [facility], [address] [place] [address]., [id number] 12/09/2023 5.8 3.8 - 10.8 Thousand/uL Final 05/02/2023 3.8 3.4 - 10.8 x10E3/uL Final Hgb Date Value Ref Range Status 02/06/2024 11.0 (L) 11.9 - 15.5 g/dL Final Comment: Testing performed by: [address] [address] 12/09/2023 10.9 (L) 11.7 - 15.5 g/dL Final 05/02/2023 10.5 (L) 11.1 - 15.9 g/dL Final Hct Date Value Ref Range Status 02/06/2024 34.3 (L) 35.6 - 45.5 % Final Comment: Testing performed by: [address] [address] 12/09/2023 33.0 (L) 35.0 - 45.0 % Final 05/02/2023 31.7 (L) 34.0 - 46.6 % Final Platelets Date Value Ref Range Status 12/09/2023 264 140 - 400 Thousand/uL Final 05/02/2023 214 150 - 450 x10E3/uL Final Plt Date Value Ref Range Status 02/06/2024 138 (L) 150 - 400 K/cumm Final Comment: Testing performed by: [address], [address] Creatinine Date Value Ref Range Status 12/09/2023 0.65 0.50 - 1.03 mg/dL Final Creatinine, Serum Date Value Ref Range Status 05/02/2023 0.65 0.57 - 1.00 mg/dL Final AST Date Value Ref Range Status 12/09/2023 12 10 - 35 U/L Final 05/02/2023 16 0 - 40 IU/L Final Cosigned by Ani Villafana DO at 04/12/2024 10:40 AM CDT documented in this encounter Plan of Treatment Not on file documented as of this encounter Results * (ABNORMAL) Iron profile w/ IBC (05/07/2024 10:19 AM CDT) Iron 22(L) 35 - 145 mcg/dL Comment:Testing performed by : [address] [address] TIBC 407(H) 250 - 400 mcg/dL LELAND Comment:Testing performed by : [address] [address] Transferrin saturation 5(L) 20 - 50 % LELAND Comment:Testing performed by : [address] [address] Blood 05/07/2024 10:1 9 AM CDT 05/07/2024 12:09 PM CDT Jacquelin Rivero LIVESTOCK AUCTIONEER LAB BLOOD ORDERABLES Soco l Result Performing Organization Address [facility]/ZIP Co de Phone Number [address] [place] [address] * (ABNORMAL) Ferritin (05/07/2024 10:19 AM CDT) Pathologist [facility] Ferritin 9(L) 15 - 150 ng/mL Comment:Testing performed by : [address] [address] Blood 05/07/2024 10:1 9 AM CDT 05/07/2024 12:09 PM CDT Jacquelin Rivero LIVESTOCK AUCTIONEER LAB BLOOD ORDERABLES Soco l Result Performing Organization Address [facility] Co de Phone Number [address] [address] * (ABNORMAL) CBC with auto differential (05/07/2024 10:19 AM CDT) WBC 6.5 3.8 - 9.9 K/cumm Comment:Testing performed by : [address] [address] Hgb 7.6(L) 11.9 - 15.5 g/dL LELAND GARCIA Comment:Testing performed by : [address] [address] Hct 25.3(L) 35.6 - 45.5 % LELAND GARCIA Comment:Testing performed by : [address] [address] Plt 288 150 - 400 K/cumm LELAND GARCIA Comment:Testing performed by : [address] [address] MPV 10.7 9.1 - 12.3 fL LELAND GARCIA Comment:Testing performed by : [address] [address] RBC 3.38(L) 3.90 - 5.20 M/cumm LELAND Comment:Testing performed by : [address] [address] MCV 74.9(L) 81.3 - 96.4 fL LELAND Comment:Testing performed by : [address] [address] MCH 22.5(L) 27.1 - 33.3 pg LELAND Comment:Testing performed by : [address] [address] MCHC 30.0(L) 32.3 - 35.7 g/dL LELAND Comment:Testing performed by : [address] [address] RDW CV 15.3(H) 11.1 - 14.9 % LELAND Comment:Testing performed by : [address] [address] RDW SD 41.7 35.7 - 48.1 fL LELAND Comment:Testing performed by : [address], [address] NRBC abs 0.00 0.00 - 0.01 K/cumm LELAND Comment:Testing performed by : [address], [address] Blood 05/07/2024 10:1 9 AM CDT 05/07/2024 10:23 AM CDT us Jacquelin Rivero LIVESTOCK AUCTIONEER LAB BLOOD ORDERABLES Soco gorman Result LELAND GARCIA [address] [facility] Department [place] [address] documented in this encounter Visit Diagnoses Diagnosis History of DVT (deep vein thrombosis)- Primary History of pulmonary embolus (PE) Iron deficiency anemia due to chronic blood loss Iron deficiency anemia secondary to blood loss (chronic) documented in this encounter Orders Appointment Requests Count Last Ordered Date Fi rst Ordered Date ONCBCN LAB APPOINTMENT 1 05/15/2024 ONCBCN CLINIC APPOINTMENT REQUEST 2 024 02/06/2024 documented in this encounter Care Teams Education Manager Relationship Specialty Start Date End Date Starr Bran PA [address] [place] [address] PCP - General Internal Medicine 12/30/18 Bibiana Schuler MD [address] [place] [address] Consulting Physician Gastroenterology 05/11/21 Ani Villafana DO [address] [place] [address] MEDICAL ONCOLOGY, [facility] [address] [place] [address] Medical Oncologist/Hematologis t Hematology and Oncology 09/26/21 Madhu Brito MD [address] [place] [address] Consulting Physician Rheumatology 05/22/23 documented as of this encounter
--- OUTSIDE RECORDS SUMMARY | 2024-07-18 20:26 | XMS_ITS | Encounter Summary ---
Author Organization [facility] Address [address] [place] [address] Phone Care Team Providers Care Tension Worker Name Role Phone Starr Bran Primary Care Provider [phone] Bibiana Schuler MD Unavailable [phone] Cornelius Garcia DO Unavailable [phone] Madhu Brito MD Unavailable Encounter Details Date Type Department Care Team (Late st Contact Info) Description 12/20/2023 Telephone [facility] [address] [place] [address] Madhu Brito MD [address] [facility] [address] [place] [address] Social History Tobacco Use Types Packs/Day Years [...] on file 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 Pt voices understanding. * Telephone Encounter - Madhu Brito MD - 12/20/2023 5:31 PM CDT Please inform patient her US of the hand/wrist did not reveal any significant or uncontrolled inflammation within the joints. There is enlargement of the median nerve which can be seen in carpal tunnel syndrome and if she is having any numbness or tingling in her finger I would recommend night timebracing which she can purchase otc. Continue treatment plan otherwise. documented in this encounter Plan of Treatment Not on file documented as of this encounter Visit Diagnoses Not on filedocumented in this encounter Care Teams Tension Worker Relationship Specialty Start Date End Date Starr Bran PA [address] [place] [address] PCP - General Internal Medicine 12/30/18 Bibiana Schuler MD [address] [place] [address] Consulting Physician Gastroenterology 05/11/21 Cornelius Garcia DO [address] [place] [address] MEDICAL ONCOLOGY, [address] [place] [address] Medical Oncologist/Hematologis t Hematology and Oncology 09/26/21 Madhu Brito MD [address] [place] [address] Consulting Physician Rheumatology 05/22/23 documented as of this encounter
--- OUTSIDE RECORDS SUMMARY | 2024-07-18 20:26 | XMS_ITS | Encounter Summary ---
Author Organization [facility] Address [address] [place] [address] Phone Care Team Providers Care Guest History Clerk Name Role Phone Starr Bran Primary Care Provider [phone] Bibiana Schuler MD Unavailable [phone] Cornelius Garcia DO Unavailable [phone] Madhu Brito MD Unavailable Reason for Visit * Diagnostic Imaging (Routine) - Closed Specialty Diagnoses / Procedures Referred By Hung gao Referred To Contact Diagnoses Arthralgia of right hand Procedures US Hand Complete Jing Erwin PA [address] [place] [address] Phone: tel: fax: External Order Referral ID Status Reason Start Date Expiration Date Visits Re quested Visits Authorized [id number] Closed 12/09/2023 01/07/2025 1 1 Encounter Details Date Type Department Care Team (Latest Contact Info) Description 12/18/2023 10:25 AM CDT - 12/18/2023 11:59 PM CDT Hospital Encounter [facility] [address] [place] [address] Discharge Disposition: Discharge to home or self [...] on file Legal 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 Gender Identity Female 02/02/2021 7:25 AM CDT [...] Procedure Name Priority Date/Time Associated Diagnosis Comments SCAN - RADIOLOGY/IMAGING 12/18/2023 10:25 AM CDT documented in this encounter Results * SCAN - RADIOLOGY/IMAGING (12/18/2023 10:25 AM CDT) Anatomical Region Laterality Modality Ultrasound us Provider Scanning Final Result documented in this encounter Visit Diagnoses Not on filedocumented in this encounter Care Teams Guest History Clerk Relationship Specialty Start Date End Date Starr Bran PA [address] [place] [address] PCP - General Internal Medicine 12/30/18 Bibiana Schuler MD [address] [place] [address] Consulting Physician Gastroenterology 05/11/21 Cornelius Garcia DO [address] [place] [address] MEDICAL ONCOLOGY, [facility] [address] [place] [address] Medical Oncologist/Hematologis t Hematology and Oncology 09/26/21 Madhu Brito MD [address] [place] [address] Consulting Physician Rheumatology 05/22/23 documented as of this encounter
--- OUTSIDE RECORDS SUMMARY | 2024-07-18 20:27 | XMS_ITS | Encounter Summary ---
Author Organization [facility] Healthcare Address [address] [place] [address] Care Team Providers Care Sack Maker Name Role Phone Starr Bran Primary Care Provider [phone] Bibiana Schuler MD Unavailable [phone] Cornelius Garcia DO Unavailable [phone] Encounter Details Date Type Department Care Team (Late st Contact Info) Description 05/13/2023 Orders Only [facility] Medical Group Family Medicine [address] [facility][1] [address] [place] [address] Provider, MD Saloni [address] [place] [address] Social History Tobacco Use Types Packs/Day Years Used Date Smoking Tobacco: Never Smokeless Tobacco: Never AUDIT-C Answer Date Recorded Q1: How often do you have a drink containing alc ohol? Monthly or less 05/09/2023 Q2: How many drinks containi ng alcohol do you have on a typical day when you are drinking? 1 or 2 05/09/2023 Q3: How often do you have si x or more drinks on one occasion? Less than monthly 05/09/2023 PHQ-2 Answer Date Recorded PHQ-2 Total Score (If total score is 3 or more points, staff should administer the PHQ-9) 0 05/09/2023 Personal Safety Answer Date Recorded Have you ever been in or are you currently in a harmful physical or emotional relationship or is someone making you feel afraid or unsafe? 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 Gender Identity Female 02/02/2021 7:25 AM CDT Sexual Orientation Straight 02/02/2021 7: 25 AM CDT documented as of this encounter Plan of Treatment Not on file documented as of this encounter Procedures Procedure Name Priority Date/Time Associated Diagnosis Comments HM PAP SMEAR WITH HPV Routine 05/03/2021 3:03 PM CDT documented in this encounter Results * HM PAP SMEAR WITH HPV (05/03/2021 3:03 PM CDT) us Historical Provider HEALTH MAINTENANCE Edited Result - Final documented in this encounter Visit Diagnoses Not on filedocumented in this encounter Care Teams Sack Maker Relationship Specialty Start Date End Date Starr Bran PA [address] [place], [place] [id number] PCP - General Internal Medicine 12/30/18 Bibiana Schuler MD [address] [place], [place] [id number] Consulting Physician Gastroenterology 05/11/21 Cornelius Garcia DO [address] [place] [address] MEDICAL ONCOLOGY, [facility] [address] [place] [address] Medical Oncologist/Hematologis t Hematology and Oncology 09/26/21 documented as of this encounter
--- OUTSIDE RECORDS SUMMARY | 2024-07-18 20:27 | XMS_ITS | Encounter Summary ---
Author Organization [facility] Address [address] [place] [address] Phone Care Team Providers Care Actuarial Consultant Name Role Phone Starr Bran Primary Care Provider [phone] Bibiana Schuler MD Unavailable [phone] Cornelius Garcia DO Unavailable [phone] Madhu Brito MD Unavailable [phone] Encounter Details Date Type Department Care Team (Late st Contact Info) Description 09/12/2023 1:45 PM ECOLOGICAL RISK ASSESSOR Office Visit [facility] [address] [place] [address] Jing Erwin PA [address] [place] [address] Systemic sclerosis (CMS/HCC) (HCC) (Primary Dx); PHAN (dyspnea on exertion); Arthralgia of right hand; terminal worker current use of therapeutic drug; Iron deficiency [...] on file Legal Sex Female 10:31 AM ECOLOGICAL RISK ASSESSOR Gender Identity Female 02/02/2021 7:25 AM CDT Sexual Orientation Straight 02/02/2021 7: 25 AM CDT documented as of this encounter Last Filed Vital Signs Vital Sign Reading Time Taken Comments Blood Pressure 156/84 09/12/2023 1:46 PM ECOLOGICAL RISK ASSESSOR Pulse 102 09/12/2023 1:46 PM ECOLOGICAL RISK ASSESSOR Temperature - - Respiratory Rate - - Oxygen Saturation 98% 09/12/2023 1:46 PM ECOLOGICAL RISK ASSESSOR Inhaled Oxygen Concentration - - Weight 92.5 kg (204 lb) 09/12/2023 1:46 PM ECOLOGICAL RISK ASSESSOR Height 160 cm (5' 3 ) 09/12/2023 1:46 PM ECOLOGICAL RISK ASSESSOR Body Mass Index 36.14 09/12/2023 1:46 PM ECOLOGICAL RISK ASSESSOR documented in this encounter Ordered Prescriptions Prescription Sig Dispense Quantity Refills Last Filled Start Date End Date mycophenolate mofetil (CELLCEPT) 500 mg tablet Take 2 tablets (1,000 mg total) by mouth 2 (two) times a day 360 tablet 09/12/2023 documented in this encounter Progress Notes * Jing Erwin PA - 09/12/2023 1:45 PM CST Images from the original note were not included. Subjective/Objective Patient ID: Viktoriya Bell is a 58 y.o. female. Chief Complaint SSc HPI Returns for routine follow up. Tolerating increased cellcept. Denies any s/e. Notes some pain in her hands mainly the right hand but otherwise is tolerable and does not limit her daily activities. Notes swelling in the right hand in the AM. Denies fevers, infections, rashes, mouth sores, cough, dyspnea, n/v. Joint pain today is 2 /10. AM stiffness = few minutes Review of Systems Constitutional: Positive for fatigue. Negative for chills and fever. HENT: Negative for congestion and mouth sores. Respiratory: Negative for cough and shortness of breath. Cardiovascular: Negative for chest pain. Gastrointestinal: Negative for abdominal pain, diarrhea, nausea and vomiting. Musculoskeletal: Positive for arthralgias. Negative for myalgias. Skin: Negative for rash. Vitals: Vitals BP 156/84 Pulse 102 Ht 160 cm (5' 3 ) Wt 92.5 kg (204 lb) SpO2 98% BMI 36.14 kg/m?? Body mass index is 36.14 kg/m??. Bold X is a current medication. [...] Cognition and memory are normal. Patient Global: 20 mm Provider Global: 20 mm CDAI: 4 In remission: 0-3 Low: 4-10 Moderate: 11-22 High: 23 or > Labs Lab Results Component Value Date WBC 4.7 08/01/2023 HGB 12.1 08/01/2023 HCT 36.3 08/01/2023 MCV 85.6 08/01/2023 Lab Results Component Value Date GLUCOSE 88 08/08/2023 CALCIUM 9.7 08/08/2023 SODIUM 143 08/08/2023 POTASSIUM 3.8 08/08/2023 CO2 25 08/08/2023 CHLORIDE 106 08/08/2023 BUNSER 13 08/08/2023 CREATININE 0.63 08/08/2023 Lab Results Component Value Date ALT 16 08/08/2023 AST 15 08/08/2023 ALKPHOS 66 08/08/2023 BILITOT 0.5 08/08/2023 Lab Results Component Value Date SEDRATE 2 08/08/2023 Lab Results Component Value Date CRP 4.2 08/08/2023 LABS: 05/18/23: Negative LAC, negative ALEXA, CRP 0.29mg/dL, ESR 6, Hep panel negative AVISE 05/18/23: +AMINA 1:2560 centromere, CENP >240, RF IgM 20, normal C3/4 04/2023: RBC 3.58, Hgb 10.5, Hct 31.7, B12 479, TIBC 303, UIBC 264, iron 39, iron sat 13 % (L), HgA1c 4.9%, lipid panel nl, CMP nl, TSH 1.70, +AMINA >1:1280 centromere 02/2023: +AMINA, dsDNA <1, BRUSH MAKER <0.2, SM <0.2, SS-A <0.2, SS-B <0.2 [...] all orders for this visit: Systemic sclerosis (CMS/HCC) (HCC) (Primary) Assessment & Plan: 58-year-old female [...] are no signs to suggest PAH. PFT showedmildly reduced DLCO but otherwise this is not too concerning and will just continue to monitor. +AMINA and CENP along with hx of GAVE are consistent with scleroderma. Baseline PFT and TTE are reassuring and do not suggest PAH at this time. Continue cellcept 1000mg BID. Routine labs today. Follow up in 3months. Sooner if needed. Orders: - Comprehensive metabolic [...] tolerable. US R hand/wrist (07/2022) showed mild inflammatoryfindings but nothing obvious to suspect active RA at this time so will just continue to monitor symptoms. 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 Improvement of anemia since starting treatment with cellcept in 06/2023. 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 Improvement of anemia since starting treatment with cellcept in 06/2023. OGICAL RISK ASSESSOR * Assessment & Plan Note - Jing Erwin PA - 09/12/2023 1:00 PM ECOLOGICAL RISK ASSESSOR Associated Problem(s): PHAN (dyspnea on exertion) CXR unremarkable. New diagnosis of systemic sclerosis. Baseline PFT and TTE are unremarkable for signs of PAH. Grade 1 diastolic dysfunction noted on TTE but this was also seen on past TTE in 2020. PFT showed only mildly reduced diffuse capacity. OGICAL RISK ASSESSOR * Assessment & Plan Note - Jing Erwin PA - 09/12/2023 12:59 PM CSTAssociated Problem(s): Arthralgia Elevated RF (20) on AVISE. C/o pain and AM swelling/stiffness in the hands (R>L) but does not limit her daily activities and is overall tolerable. US R hand/wrist (07/2022) showed mild inflammatoryfindings but nothing obvious to suspect active RA at this time so will just continue to monitor symptoms. OGICAL RISK ASSESSOR OGICAL RISK ASSESSOR * Assessment & Plan Note - Jing Erwin PA - 09/12/2023 12:58 PM CSTAssociated Problem(s): Systemic sclerosis (HCC) 58-year-old female with [...] are no signs to suggest PAH. PFT showedmildly reduced DLCO but otherwise this is not too concerning and will just continue to monitor. +AMINA and CENP along with hx of GAVE are consistent with scleroderma. Baseline PFT and TTE are reassuring and do not suggest PAH at this time. Continue cellcept 1000mg BID. Routine labs today. Follow up in 3months. Sooner if needed. OGICAL RISK ASSESSOR documented in this encounter Plan of Treatment Not on file documented as of this encounter Procedures Procedure Name Priority Date/Time Associated Diagnosis Comments CBC WITH AUTO DIFFERENTIAL Routine 09/12/2023 2:09 PM ECOLOGICAL RISK ASSESSOR Systemic sclerosis (CMS/HCC) (HCC) terminal worker current use of therapeutic drug ERYTHROCYTE SEDIMENTATION RATE Routine 09/12/2023 2:09 PM ECOLOGICAL RISK ASSESSOR Systemic sclerosis (CMS/HCC) (HCC) penitentiary current use of therapeutic drug CRP (ACUTE PHASE) Routine 09/12/2023 2:0 9 PM ECOLOGICAL RISK ASSESSOR Systemic sclerosis (CMS/HCC) (HCC) terminal worker current use of therapeutic drug COMPREHENSIVE METABOLIC PANEL Routine 09/12/2023 2:09 PM ECOLOGICAL RISK ASSESSOR Systemic sclerosis (CMS/HCC) (HCC) terminal worker current use of therapeutic drug documented in this encounter Results * CRP (acute phase) (09/12/2023 2:09 PM ECOLOGICAL RISK ASSESSOR) C-RP 3.6 <8.0 mg/L [facility] Blood 09/12/2023 2:09 PM ECOLOGICAL RISK ASSESSOR 09/12/2023 2:10 PM ECOLOGICAL RISK ASSESSOR us Jing SALVADOR LAB BLOOD ORDERABLES Final Result [facility] [id number] [place] [phone] * Erythrocyte sedimentation rate (09/12/2023 2:09 PM ECOLOGICAL RISK ASSESSOR) Erythrocyte sedimentation rate 2 < OR = 30 mm/h [facility] Blood 09/12/2023 2:09 PM ECOLOGICAL RISK ASSESSOR 09/12/2023 2:10 PM ECOLOGICAL RISK ASSESSOR Jing SALVADOR LAB BLOOD ORDERABLES Final Result [facility] [id number] [place] [phone] * (ABNORMAL) CBC with auto differential (09/12/2023 2:09 PM ECOLOGICAL RISK ASSESSOR) WBC 5.3 3.8 - 10.8 Thousand/u L [facility] RBC, POC 4.15 3.80 - 5.10 Million/uL [facility] Hgb 12.2 11.7 - 15.5 g/dL [facility] Hct 35.3 35.0 - 45.0 % [facility] MCV 85.1 80.0 - 100.0 fL [facility] MCH 29.4 27.0 - 33.0 pg [facility] MCHC 34.6 32.0 - 36.0 g/dL [facility] Rdw 13.6 11.0 - 15.0 % [facility] Platelets 253 140 - 400 Thousand/u L [facility] MPV 10.3 7.5 - 12.5 fL [facility] Neutrophils, abs 3,922 1,500 - 7,800 cells/uL [facility] Lymphocytes, abs 1,007 850 - 3,900 cells/uL [facility] Monocyte abs 360 200 - 950 cells/uL [facility] Eosinophils, abs 11(L) 15 - 500 cells/uL [facility] Basophils, abs 0 0 - 200 cells/uL [facility] Neutrophils 74 % [facility] Lymphocyte pct 19.0 % [facility] Monocytes 6.8 % [facility] Eosinophils 0.2 % [facility] Basophils 0.0 % [facility] Blood 09/12/2023 2:09 PM ECOLOGICAL RISK ASSESSOR 09/12/2023 2:10 PM ECOLOGICAL RISK ASSESSOR us Jing SALVADOR LAB BLOOD ORDERABLES Final Result [facility] [id number] [place] [phone] * Comprehensive metabolic panel (09/12/2023 2:09 PM ECOLOGICAL RISK ASSESSOR) Glucose 89 65 - 99 mg/dL [facility] Comment: ? Fasting reference interval BUN 12 7 - 25 mg/dL [facility] Creatinine 0.56 0.50 - 1.03 mg/dL [facility] eGFR 105 > OR = 60 mL/min/1.7 3m2 [facility] BUN/creat ratio SEE NOTE: 6 - (calc) [facility] Comment: ?? Not Reported: BUN and Creatinine are within ?? reference range. ? Sodium 139 135 - 146 mmol/L [facility] Potassium, pl 3.8 3.5 - 5.3 mmol/L [facility] Chloride 102 98 - 110 mmol/L [facility] CO2 26 20 - 32 mmol/L [facility] Calcium 9.8 8.6 - 10.4 mg/dL [facility] Protein, sr 7.1 6.1 - 8.1 g/dL [facility] Albumin 4.7 3.6 - 5.1 g/dL [facility] GLOBULIN 2.4 1.9 - 3.7 g/dL (calc) [facility] Alb/glob ratio 2.0 1.0 - 2.5 (calc) [facility] Bilirubin, total 0.4 0.2 - 1.2 mg/dL [facility] Alk phos 76 37 - 153 U/L [facility] AST 13 10 - 35 U/L [facility] ALT (SGPT) 15 6 - 29 U/L [facility] Blood 09/12/2023 2:09 PM ECOLOGICAL RISK ASSESSOR 09/12/2023 2:10 PM ECOLOGICAL RISK ASSESSOR Jing SALVADOR LAB BLOOD ORDERABLES Final Result [facility] [id number] [place] [phone] documented in this encounter Visit Diagnoses Diagnosis Systemic sclerosis (HCC)- Primary Systemic sclerosis PHAN (dyspnea on exertion) Other dyspnea and respiratory abnormality Arthralgia of right hand penitentiary current use of therapeutic drug Iron deficiency anemia due to chronic blood loss Iron deficiency anemia secondary to blood loss (chronic) documented in this encounter Discontinued Medications Medication Sig Discontinue Reason Start Date End Da te mycophenolate mofetil (CELLCEPT) 500 mg tablet Take 2 tablets (1,000 mg total) by mouth 2 (two) times a day Reorder 08/08/2023 09/12/2023 documented as of this encounter Care Teams Actuarial Consultant Relationship Specialty Start Date End Date Starr Bran PA [address] [place] [address] PCP - General Internal Medicine 12/30/18 Bibiana Schuler MD [address] [place] [address] Consulting Physician Gastroenterology 05/11/21 Cornelius Garcia DO [address] [place] [address] MEDICAL ONCOLOGY, [facility] [address] [place] [address] Medical Oncologist/Hematologis t Hematology and Oncology 09/26/21 Madhu Brito MD [address] [place] [address] Consulting Physician Rheumatology 05/22/23 documented as of this encounter
--- OUTSIDE RECORDS SUMMARY | 2024-07-18 20:27 | XMS_ITS | Encounter Summary ---
Author Organization [facility] Healthcare Address [address] [place] [address] Care Team Providers Care Trimming Cutter Machine Name Role Phone Starr Bran Primary Care Provider [phone] Bibiana Schuler MD Unavailable [phone] Cornelius Garcia DO Unavailable [phone] Madhu Brito MD Unavailable [phone] Reason for Referral * Procedure (Routine) - Closed Specialty Diagnoses / Procedures Referred By Hung gao Referred To Contact Diagnoses Positive AMINA (antinuclear antibody) PHAN (dyspnea on exertion) Systemic sclerosis (HCC) Procedures Pulmonary Function Test -External Jing Erwin PA [address] [place] [address] Phone: tel: fax: Referral ID Status Reason Start Date Expiration Date Visits Re quested Visits Authorized [id number] Closed 07/11/2023 08/09/2024 1 1 AND OIL CHECKER Reason for Visit * Procedure (Routine) - Closed Specialty Diagnoses / Procedures Referred By Hung gao Referred To Contact Diagnoses Positive AMINA (antinuclear antibody) PHAN (dyspnea on exertion) Systemic sclerosis (HCC) Procedures Pulmonary Function Test -External Jing Erwin PA [address] [place] [address] Phone: tel: fax: Referral ID Status Reason Start Date Expiration Date Visits Re quested Visits Authorized [id number] Closed 07/11/2023 08/09/2024 1 1 Encounter Details Date Type Department Care Team (Latest Contact Info) Description 09/05/2023 9:00 AM GAS AND OIL CHECKER - 09/05/2023 11:59 PM GAS AND OIL CHECKER Hospital Encounter [facility] Respiratory Therapy [address] [place] [address] Positive AMINA (antinuclear antibody); PHAN (dyspnea on exertion); Systemic sclerosis (CMS/HCC) (HCC) Discharge Disposition: Discharge to home or self [...] on file Legal Sex Female 10:31 AM GAS AND OIL CHECKER Gender Identity Female 02/02/2021 7:25 AM [...] mg capsuleIndicatio ns:Vasomotor symptoms due to menopause Take 1 capsule PO in the morning 90 capsule 1 04/02/2023 09/25/2023 gabapentin (NEURONTIN) 300 mg capsuleIndicatio ns:Vasomotor phenomenon Take 1 capsule PO at night 90 capsule 1 04/02/2023 09/25/2023 lisinopriL (PRINIVIL,ZESTRI L) 10 mg tablet TAKE 1 TABLET DAILY 90 tablet 3 07/15/2023 10/06/2023 mycophenolate mofetil (CELLCEPT) 500 mg tablet Take 2 tablets (1,000 mg total) by mouth 2 (two) times a day 180 tablet 1 08/08/2023 09/12/2023 venlafaxine XR (EFFEXOR-XR) 75 mg 24 hr [...] Procedure Name Priority Date/Time Associated Diagnosis Comments PULMONARY FUNCTION TEST (PFT) Routine 09/05/2023 9:40 AM GAS AND OIL CHECKER Positive AMINA (antinuclear antibody) PAHN (dyspnea on exertion) Systemic sclerosis (CMS/HCC) (HCC) documented in this encounter Results * (ABNORMAL) Pulmonary Function Test - (09/05/2023 9:40 AM GAS AND OIL CHECKER) [facility] FVC PRE 2.82 2.33 - 3.84 L 09/05/2023 9:43 AM GAS AND OIL CHECKER [facility] FEV1 PRE 2.13 1.84 - 3.00 L 09/05/2023 9:43 AM GAS AND OIL CHECKER [facility] [id number] 75.46 67.54 - 89.74 % 09/05/2023 9:43 AM [facility] LIO10-58% PRE 1.64 1.15 - 3.70 L/s 09/05/2023 9:43 AM [facility] PEF PRE 5.65 4.44 - 7.40 L/s 09/05/2023 9:43 AM [facility] DLCOc SB 14.86(L) 16.54 - 28.00 ml/(min*mm Hg) 09/05/2023 9:43 AM [facility] DLCO/VA PRE 3.56 3.12 - 6.21 ml/(min*mm Hg*L) 09/05/2023 9:43 AM [facility] VA 4.17(L) 4.62 - 4.62 L 09/05/2023 9:43 AM [facility] TLC PRE 4.35 3.78 - 5.76 L 09/05/2023 9:43 AM [facility] VC PRE 2.85 2.07 - 3.45 L 09/05/2023 9:43 AM [facility] IC PRE 2.28(H) 1.96 - 1.96 L 09/05/2023 9:43 AM [facility] FRC PL PRE 2.07 1.82 - 3.47 L 09/05/2023 9:43 AM [facility] ERV PRE 0.56(L) 0.80 - 0.80 L 09/05/2023 9:43 AM [facility] RV PRE 1.51 1.26 - 2.42 L 09/05/2023 9:43 AM [facility] VTG 2.19 L 09/05/2023 9:43 AM [facility] RAW PRE 3.83(H) 3.06 - 3.06 cmH2O*s/L 09/05/2023 9:43 AM [facility] Anatomical Region Laterality Modality PFT 09/05/2023 9:17 AM [facility] Impressions 09/06/2023 1:02 PM [facility] 1. ?? Normal spirometry and lung volumes 2. ?? Mild diffusion impairment Electronically signed by Landon Dhaliwal MD Pulmonary & Critical Care Narrative 09/06/2023 1:02 PM [facility] PULMONARY FUNCTION TESTS Viktoriya R Bell 58 y.o. 09/06/2023 INTERPRETATION Please see technologist's comments mentioned in attached results report. SPIROMETRY: ??Pre bronchodilator FEV1 is ??88 % predicted, FVC is ??92 % predicted, FEV1/FVC is ??0.75 Bronchodilator response: ??not performed Inspection of the patient's flow-volume loops shows: ??Normal configuration of the inspiratory and expiratory limbs. LUNG VOLUMES: Lung volumes by body plethysmography: ??TLC is ??91 % predicted, RV is ??82 % predicted DLCO: ??Unadjusted for hemoglobin and carboxyhemoglobin DLCO is ??67 % predicted Jing SALVADOR PFT ORDERABLES Final Result documented in this encounter Visit Diagnoses Diagnosis Positive AMINA (antinuclear antibody) Other and unspecified nonspecific immunological findings PHAN (dyspnea on exertion) Other dyspnea and respiratory abnormality Systemic sclerosis (HCC) Systemic sclerosis documented in this encounter Care Teams Trimming Cutter Machine Relationship Specialty Start Date End Date Starr Bran PA [address] [place] [address] PCP - General Internal Medicine 12/30/18 Bibiana Schulre MD [address] [place] [address] Consulting Physician Gastroenterology 05/11/21 Cornelius Garcia DO [address] [place] [address] MEDICAL ONCOLOGY, [facility] [address] [place] [address] Medical Oncologist/Hematologis t Hematology and Oncology 09/26/21 Madhu Brito MD [facility] [place] [address] Consulting Physician Rheumatology 05/22/23 documented as of this encounter
--- OUTSIDE RECORDS SUMMARY | 2024-07-18 20:27 | XMS_ITS | Encounter Summary ---
Author Organization [facility] Healthcare Address [address] [place] [address] Care Team Providers Care Biomedical Specialist Name Role Phone Starr Bran Primary Care Provider [phone] Bibiana Schuler MD Unavailable [phone] Cornelius Garcia DO Unavailable [phone] Madhu Brito MD Unavailable [phone] Reason for Visit * Reason Comments B12 Injection B12 injection Encounter Details Date Type Department Care Team (Latest Contact Info) Description 06/04/2023 9:00 AM HAND WRAPPER OPERATOR Clinical Support [facility] Medical Group Family Medicine [address] [address] B12 deficiency (Primary Dx) Social [...] on file Legal Sex Female 10:31 AM HAND WRAPPER OPERATOR Gender Identity Female 02/02/2021 7:25 AM CDT Sexual Orientation Straight 02/02/2021 7: 25 AM CDT documented as of this encounter Plan of Treatment Not on file documented as of this encounter Visit Diagnoses Diagnosis B12 deficiency- Primary documented in this encounter Care Teams Biomedical Specialist Relationship Specialty Start Date End Date Starr Bran PA [address] [place] [address] PCP - General Internal Medicine 12/30/18 Bibiana Schuler MD [address] [place] [address] Consulting Physician Gastroenterology 05/11/21 Cornelius Garcia DO [address] [place] [address] MEDICAL ONCOLOGY, [address] [place] [address] Medical Oncologist/Hematologis t Hematology and Oncology 09/26/21 Madhu Brito MD [address] [place] [address] Consulting Physician Rheumatology 05/22/23 documented as of this encounter
--- OUTSIDE RECORDS SUMMARY | 2024-07-18 20:27 | XMS_ITS | Encounter Summary ---
Author Organization [facility] Address [address] [place] [address] Phone Care Team Providers Care Optics Manufacturing Technician Name Role Phone Starr Bran Primary Care Provider [phone] Bibiana Schuler MD Unavailable [phone] Cornelius Garcia DO Unavailable [phone] Madhu Brito MD Unavailable [phone] Encounter Details Date Type Department Care Team (Late st Contact Info) Description 08/08/2023 2:30 PM ONCOLOGY PHYSICIAN ASSISTANT Office Visit [facility] [address] [place] [address] Jing Erwin PA [address] [place] [address] Systemic sclerosis (CMS/HCC) (HCC) (Primary Dx); PHAN (dyspnea on exertion); Arthralgia of right hand; terminal manager current use of therapeutic drug Social History Tobacco Use Types Packs/Day Years [...] on file Legal Sex Female 10:31 AM ONCOLOGY PHYSICIAN ASSISTANT Gender Identity Female 02/02/2021 7:25 AM CDT Sexual Orientation Straight 02/02/2021 7: 25 AM CDT documented as of this encounter Last Filed Vital Signs Vital Sign Reading Time Taken Comments Blood Pressure 164/86 08/08/2023 2:32 PM ONCOLOGY PHYSICIAN ASSISTANT Pulse 92 08/08/2023 2:32 PM ONCOLOGY PHYSICIAN ASSISTANT Temperature - - Respiratory Rate - - Oxygen Saturation 100% 08/08/2023 2:32 PM ONCOLOGY PHYSICIAN ASSISTANT Inhaled Oxygen Concentration - - Weight 93.1 kg (205 lb 3.2 oz) 08/08/2023 2:32 P M ONCOLOGY PHYSICIAN ASSISTANT Height 160 cm (5' 3 ) 08/08/2023 2:32 PM ONCOLOGY PHYSICIAN ASSISTANT Body Mass Index 36.35 08/08/2023 2:32 PM ONCOLOGY PHYSICIAN ASSISTANT documented in this encounter Ordered Prescriptions Prescription Sig Dispense Quantity Refills Last Filled Start Date End Date mycophenolate mofetil (CELLCEPT) 500 mg tablet Take 2 tablets (1,000 mg total) by mouth 2 (two) times a day 180 tablet 1 08/08/2023 documented in this encounter Progress Notes * Jing Erwin PA - 08/08/2023 2:30 PM CST Images from the original note were not included. Subjective/Objective Patient ID: Viktoriya Bell is a 58 y.o. female. Chief Complaint Ssc HPI Returns for routine follow up. Having pain in the right 5th PIP joint still. Tolerable and does not take any otc analgesics for this. Notes hands are puffy and worse in the AM but swelling improves throughout the day. Started cellcept without s/e. Still notes PHAN. just had liver transplant yesterday and willbe coming home soon. Pt is scheduled for PFT/TTE on 08/13 but may have to post-pone this as she willhave to be home caring for her the 1st week out of the hospital. F/u with heme who noted improvement of anemia on labs. Denies fevers, infections, rashes, mouth sores, cough, n/v. Joint pain today is 3 /10. AM stiffness = few minutes Review of Systems Constitutional: Positive for fatigue. Negative for chills and fever. HENT: Negative for congestion and mouth sores. Respiratory: Positive for PHAN. Negative for cough. Cardiovascular: Negative for chest pain. Gastrointestinal: Negative for abdominal pain, diarrhea, nausea and vomiting. Musculoskeletal: Positive for arthralgias. Negative for myalgias. Skin: Negative for rash. Vitals: Vitals BP 164/86 Pulse 92 Ht 160 cm (5' 3 ) Wt 93.1 kg (205 lb 3.2 oz) SpO2 100% BMI 36.35 kg/m?? Body mass index is 36.35 kg/m??. Bold X is a current medication. Medication Taking/taken D/C or avoidance reason Hydroxychloroquine Methotrexate Leflunomide Azathioprine Sulfasalazine CellCept Humira Enbrel Simponi Cimzia Simponi aria Remicade Cosentyx Taltz Orencia Stelara Tremfya Xeljanz Rinvoq Actemra Kevzara Olumiant Kineret Benlysta Rituxan Otezla NSAIDs Prednisone Physical Exam Constitutional: oriented to person, place, and time. appears well-developed and well-nourished. HENT: Head: Normocephalic. Eyes: Conjunctivae are normal. Pupils are equal and round. Pulmonary/Chest: Effort normal. Musculoskeletal: See cdai. Questionable fullness in a few MCP joints of the right hand. Generalizedsoft tissue swelling/puffiness in both hands which makes assessing for synovitis difficult. Neurological: alert and oriented to person, place, and time. Skin: Skin is warm and dry. No rash noted. Psychiatric: normal mood and affect. speech is normal and behavior is normal. Cognition and memory are normal. Patient Global: 30 mm Provider Global: 30 mm CDAI: 7 In remission: 0-3 Low: 4-10 Moderate: 11-22 High: 23 or > Labs Lab Results Component Value Date WBC 4.7 08/01/2023 HGB 12.1 08/01/2023 HCT 36.3 08/01/2023 MCV 85.6 08/01/2023 Lab Results Component Value Date GLUCOSE 91 05/02/2023 CALCIUM 9.2 05/02/2023 SODIUM 143 05/02/2023 POTASSIUM 3.7 11/03/2020 CO2 23 05/02/2023 CHLORIDE 106 05/02/2023 BUNSER 9 05/02/2023 CREATININE 0.65 05/02/2023 Lab Results Component Value Date ALT 14 05/02/2023 AST 16 05/02/2023 ALKPHOS 71 05/02/2023 BILITOT 0.3 05/02/2023 Lab Results Component Value Date SEDRATE 6 06/17/2023 Lab Results Component Value Date CRP 2.9 06/17/2023 LABS: 05/18/23: Negative LAC, negative ALEXA, CRP 0.29mg/dL, ESR 6, Hep panel negative AVISE 05/18/23: +AMINA 1:2560 centromere, CENP >240, RF IgM 20, normal C3/4 04/2023: RBC 3.58, Hgb 10.5, Hct 31.7, B12 479, TIBC 303, UIBC 264, iron 39, iron sat 13 % (L), HgA1c 4.9%, lipid panel nl, CMP nl, TSH 1.70, +AMINA >1:1280 centromere 02/2023: +AMINA, dsDNA <1, RAIL CAR OPERATOR <0.2, SM <0.2, SS-A <0.2, SS-B <0.2 IMAGING: US right hand/wrist (08/01/22): Grade 2 power [...] Normal examined duodenum. - No specimens collected. TTE 10/2020: Interpretation Summary The left ventricle is normal in size. There is normal left ventricular wall thickness. Left ventricular systolic function is normal. Ejection Fraction = 55-60%. The left ventricular wall motion is normal. The right ventricular systolic function is normal. There is mild tricuspid regurgitation. Right ventricular systolic pressure is elevated at 30-40mmHg. Grade I diastolic dysfunction, (abnormal relaxation pattern). CTA chest 01/2021: resolution of previously visualized [...] up in 4 weeks. Sooner if needed. Orders: - Comprehensive metabolic panel; Future - Erythrocyte sedimentation rate; Future - CRP (acute phase); Future PHAN (dyspnea on exertion) Assessment & Plan: CXR unremarkable. New diagnosis of systemic sclerosis. Will get baseline PFT and TTE due to risk for pulm artery HTN. Arthralgia of right hand Assessment & Plan: Elevated RF (20) on AVISE. Now c/o new pain in R 5th PIP along with AM stiffness in the lower extremities. US R hand/wrist (07/2022) showed mild inflammatory findings but nothing obvious to suspect active RA at this time so will just continue to monitor symptoms. terminal manager current use of therapeutic drug - Comprehensive metabolic panel; Future - Erythrocyte sedimentation rate; Future - CRP (acute phase); Future Other orders - mycophenolate mofetil (CELLCEPT) 500 mg tablet; Take 2 tablets (1,000 mg total) by mouth 2 (two) times a day Jing Erwin PA-C Cosigned by Madhu Brito MD at 08/08/2023 5:11 PM ONCOLOGY PHYSICIAN ASSISTANT LOGY PHYSICIAN ASSISTANT LOGY PHYSICIAN ASSISTANT documented in this encounter Miscellaneous Notes * Assessment & Plan Note - Jing Erwin PA - 08/08/2023 2:10 PM ONCOLOGY PHYSICIAN ASSISTANT Associated Problem(s): Arthralgia Elevated RF (20) on AVISE. Now c/o new pain in R 5th PIP along with AM stiffness in the lower extremities. US R hand/wrist (07/2022) showed mild inflammatory findings but nothing obvious to suspect active RA at this time so will just continue to monitor symptoms. LOGY PHYSICIAN ASSISTANT * Assessment & Plan Note - Jing Erwin PA - 08/08/2023 2:10 PM ONCOLOGY PHYSICIAN ASSISTANT Associated Problem(s): PHAN (dyspnea on exertion) CXR unremarkable. New diagnosis of systemic sclerosis. Will get baseline PFT and TTE due to risk for pulm artery HTN. LOGY PHYSICIAN ASSISTANT LOGY PHYSICIAN ASSISTANT * Assessment & Plan Note - Jing Erwin PA - 08/08/2023 2:09 PM ONCOLOGY PHYSICIAN ASSISTANT Associated Problem(s): Systemic sclerosis (HCC) 58-year-old female [...] up in 4 weeks. Sooner if needed. LOGY PHYSICIAN ASSISTANT LOGY PHYSICIAN ASSISTANT documented in this encounter Plan of Treatment Not on file documented as of this encounter Procedures Procedure Name Priority Date/Time Associated Diagnosis Comments ERYTHROCYTE SEDIMENTATION RATE Routine 08/08/2023 3:09 PM ONCOLOGY PHYSICIAN ASSISTANT Systemic sclerosis (CMS/HCC) (HCC) USP current use of therapeutic drug CRP (ACUTE PHASE) Routine 08/08/2023 3:0 9 PM ONCOLOGY PHYSICIAN ASSISTANT Systemic sclerosis (CMS/HCC) (HCC) terminal manager current use of therapeutic drug COMPREHENSIVE METABOLIC PANEL Routine 08/08/2023 3:09 PM ONCOLOGY PHYSICIAN ASSISTANT Systemic sclerosis (CMS/HCC) (HCC) USP current use of therapeutic drug documented in this encounter Results * CRP (acute phase) (08/08/2023 3:09 PM ONCOLOGY PHYSICIAN ASSISTANT) Pathologist [facility] C-RP 4.2 <8.0 mg/L [facility] Blood 08/08/2023 3:09 PM ONCOLOGY PHYSICIAN ASSISTANT 08/08/2023 3:10 PM ONCOLOGY PHYSICIAN ASSISTANT Jing SALVADOR LAB BLOOD ORDERABLES Final Result Performing Organization Address [facility] Co de Phone Number [facility] [address] [place] [address] * Erythrocyte sedimentation rate (08/08/2023 3:09 PM ONCOLOGY PHYSICIAN ASSISTANT) [facility] Erythrocyte sedimentation rate 2 < OR = 30 mm/h [facility] Blood 08/08/2023 3:09 PM ONCOLOGY PHYSICIAN ASSISTANT 08/08/2023 3:10 PM ONCOLOGY PHYSICIAN ASSISTANT Jing SALVADOR LAB BLOOD ORDERABLES Final Result Performing Organization Address [facility] de Phone Number [facility] [address] [place] [address] * Comprehensive metabolic panel (08/08/2023 3:09 PM ONCOLOGY PHYSICIAN ASSISTANT) [facility] Glucose 88 65 - 99 mg/dL [facility] Comment: ? Fasting reference interval BUN 13 7 - 25 mg/dL [facility] Creatinine 0.63 0.50 - 1.03 mg/dL [facility] eGFR 102 > OR = 60 mL/min/1.7 3m2 [facility] BUN/creat ratio SEE NOTE: 6 - 22 (calc) [facility] Comment: ?? Not Reported: BUN and Creatinine are within ?? reference range. ? Sodium 143 135 - 146 mmol/L [facility] Potassium, pl 3.8 3.5 - 5.3 mmol/L [facility] Chloride 106 98 - 110 mmol/L [facility] CO2 25 20 - 32 mmol/L [facility] Calcium 9.7 8.6 - 10.4 mg/dL [facility] Protein, sr 7.1 6.1 - 8.1 g/dL [facility] Albumin 4.7 3.6 - 5.1 g/dL [facility] GLOBULIN 2.4 1.9 - 3.7 g/dL (calc) [facility] Alb/glob ratio 2.0 1.0 - 2.5 (calc) [facility] Bilirubin, total 0.5 0.2 - 1.2 mg/dL [facility] Alk phos 66 37 - 153 U/L [facility] AST 15 10 - 35 U/L [facility] ALT (SGPT) 16 6 - 29 U/L [facility] Blood 08/08/2023 3:09 PM ONCOLOGY PHYSICIAN ASSISTANT 08/08/2023 3:10 PM ONCOLOGY PHYSICIAN ASSISTANT Jing SALVADOR LAB BLOOD ORDERABLES Final Result [facility] [address] [place] [address] documented in this encounter Visit Diagnoses Diagnosis Systemic sclerosis (HCC)- Primary Systemic sclerosis PHAN (dyspnea on exertion) Other dyspnea and respiratory abnormality Arthralgia of right hand USP current use of therapeutic drug documented in this encounter Discontinued Medications Medication Sig Discontinue Reason Start Date End Da te mycophenolate mofetil (CELLCEPT) 500 mg tablet Take 1 tablet (500 mg total) by mouth 2 (two) times a day Reorder 07/11/2023 08/08/2023 documented as of this encounter Care Teams Optics Manufacturing Technician Relationship Specialty Start Date End Date Starr Bran PA [address] [place], [place] [id number] PCP - General Internal Medicine 12/30/18 Bibiana Schuler MD [address] [place] [address] Consulting Physician Gastroenterology 05/11/21 Cornelius Garcia DO [address] [place] [address] MEDICAL ONCOLOGY, [facility] [address] [place] [address] Medical Oncologist/Hematologis t Hematology and Oncology 09/26/21 Madhu Brito MD [address] [place] [address] Consulting Physician Rheumatology 05/22/23 documented as of this encounter
--- OUTSIDE RECORDS SUMMARY | 2024-07-18 20:27 | XMS_ITS | Encounter Summary ---
Author Organization [facility] Healthcare Address [address] [place] [address] Care Team Providers Care Dust Box Tender Name Role Phone Starr Bran Primary Care Provider [phone] Bibiana Schuler MD Unavailable [phone] Cornelius Garcia DO Unavailable [phone] Madhu Brito MD Unavailable [phone] Encounter Details Date Type Department Care Team (Late st Contact Info) Description 08/01/2023 9:00 AM CLINICAL SPECIALIST VASCULAR Lab [facility] [place] [facility] [address] [place] [address] Iron deficiency anemia due to chronic blood [...] file Legal Sex Female 10:31 AM CLINICAL SPECIALIST VASCULAR Gender Identity Female 02/02/2021 7:25 AM CDT Sexual Orientation Straight 02/02/2021 7: 25 AM CDT documented as of this encounter Plan of Treatment Not on file documented as of this encounter Procedures Procedure Name Priority Date/Time Associated Diagnosis Comments DIFFERENTIAL AUTO Routine 08/01/2023 9:0 3 AM CLINICAL SPECIALIST VASCULAR Iron deficiency anemia due to chronic blood loss IRON PROFILE W/ IBC Routine 08/01/2023 9 :03 AM CLINICAL SPECIALIST VASCULAR Iron deficiency anemia due to chronic blood loss CBC WITH AUTO DIFFERENTIAL Routine 08/01/2023 9:03 AM CLINICAL SPECIALIST VASCULAR Iron deficiency anemia due to chronic blood loss FERRITIN Routine 08/01/2023 9:03 AM CLINICAL SPECIALIST VASCULAR Iron deficiency anemia due to chronic blood loss documented in this encounter Results * (ABNORMAL) Differential, auto (08/01/2023 9:03 AM CLINICAL SPECIALIST VASCULAR) Neutrophil abs 3.6 1.5 - 6.5 K/cumm LELAND Comment:Testing performed by : [address] [address] Lymphocyte abs 0.7(L) 0.8 - 3.3 K/cumm [facility]AND Comment:Testing performed by : [address] [address] Monocyte abs 0.3 0.2 - 0.8 K/cumm L[facility]AND Comment:Testing performed by : [address] [address] Neutrophil pct 77.8 % LELAND Comment: Interpretive Data Percent cell count reference ranges are not reported, since discordance with absolute values may lead to misinterpretation of CBC data. Current Interpretive Data was last revised on 2017. Testing performed by: [address] [address] Imm gran pct 0.4 % LELAND Comment: Interpretive Data Percent cell count reference ranges are not reported, since discordance with absolute values may lead to misinterpretation of CBC data. Current Interpretive Data was last revised on 2017. Testing performed by: [address] [address] Lymphocyte pct 15.8 % LELAND Comment: Interpretive Data Percent cell count reference ranges are not reported, since discordance with absolute values may lead to misinterpretation of CBC data. Current Interpretive Data was last revised on 2017. Testing performed by: [address] [address] Monocyte pct 5.8 % [facility]AND Comment: Interpretive Data Percent cell count reference ranges are not reported, since discordance with absolute values may lead to misinterpretation of CBC data. Current Interpretive Data was last revised on 2017. Testing performed by: [address] [address] Eosinophil pct 0.2 % [facility]AND Comment: Interpretive Data Percent cell count reference ranges are not reported, since discordance with absolute values may lead to misinterpretation of CBC data. Current Interpretive Data was last revised on 2017. Testing performed by: [address] [address] Blood 08/01/2023 9:03 AM CLINICAL SPECIALIST VASCULAR 08/01/2023 9:04 AM CLINICAL SPECIALIST VASCULAR us Tierra Skelton INDEPENDENT SALES REPRESENTATIVE LAB BLOOD ORDERABLES Final Re sult [facility] [address] [facility] [place] [address] * CBC with auto differential (08/01/2023 9:03 AM CLINICAL SPECIALIST VASCULAR) WBC 4.7 3.8 - 9.9 K/cumm [facility]EL[facility] GARCIA Comment:Testing performed by : [address] [address] Hgb 12.1 11.9 - 15.5 g/dL [facility] GARCIA Comment:Testing performed by : [address] [address] Hct 36.3 35.6 - 45.5 % LELAND GARCIA Comment:Testing performed by : [address] [address] Plt 219 150 - 400 K/cumm LELAND GARCIA Comment:Testing performed by : [address] [address] MPV 9.4 9.1 - 12.3 fL L[facility] GARCIA Comment:Testing performed by : [address] [address] RBC 4.24 3.90 - 5.20 M/cumm LELAND GARCIA Comment:Testing performed by : [address] [address] MCV 85.6 81.3 - 96.4 fL L[facility] GARCIA Comment:Testing performed by : [address] [address] MCH 28.5 27.1 - 33.3 pg LELAND Comment:Testing performed by : [address] [address] MCHC 33.3 32.3 - 35.7 g/dL LELAND Comment:Testing performed by : [address], [address] RDW CV 13.4 11.1 - 14.9 % LELAND Comment:Testing performed by : [address] [address] RDW SD 41.6 35.7 - 48.1 fL [facility]ELAND Comment:Testing performed by : [address], [address] Blood 08/01/2023 9:03 AM CLINICAL SPECIALIST VASCULAR 08/01/2023 9:04 AM CLINICAL SPECIALIST VASCULAR us Tierra Skelton INDEPENDENT SALES REPRESENTATIVE LAB BLOOD ORDERABLES Final Re sult [facility]AND GARCIA [address] [facility] Department of Laboratories [place], [place] [id number] * Ferritin (08/01/2023 9:03 AM CLINICAL SPECIALIST VASCULAR) [facility] Ferritin 38 15 - 150 ng/mL L[facility]AND GARCIA Comment:Testing performed by : [address] [address] Blood 08/01/2023 9:03 AM CLINICAL SPECIALIST VASCULAR 08/01/2023 10:20 AM CLINICAL SPECIALIST VASCULAR Tierra Skelton INDEPENDENT SALES REPRESENTATIVE LAB BLOOD ORDERABLES Final Re sult Performing Organization Address [facility] de Phone Number [address] [address] * Iron profile w/ IBC (08/01/2023 9:03 AM CLINICAL SPECIALIST VASCULAR) Iron 79 35 - 145 mcg/dL LELAND Comment:Testing performed by : [address] [address] TIBC 293 250 - 400 mcg/dL LELAND Comment:Testing performed by : [address] [address] Transferrin saturation 27 20 - 50 % LELAND Comment:Testing performed by : [address] [address] Blood 08/01/2023 9:03 AM CLINICAL SPECIALIST VASCULAR 08/01/2023 10:20 AM CLINICAL SPECIALIST VASCULAR Tierra Skelton INDEPENDENT SALES REPRESENTATIVE LAB BLOOD ORDERABLES Final Re sult Performing Organization Address [facility] de Phone Number [address] [address] documented in this encounter Visit Diagnoses Diagnosis Iron deficiency anemia due to chronic blood loss Iron deficiency anemia secondary to blood loss (chronic) documented in this encounter Care Teams Dust Box Tender Relationship Specialty Start Date End Date Starr Bran PA [address] [place] [address] PCP - General Internal Medicine 12/30/18 Bibiana Schuler MD [address] [place] [address] Consulting Physician Gastroenterology 05/11/21 Cornelius Garcia DO [address] [place] [address] MEDICAL ONCOLOGY, [address] [address] Medical Oncologist/Hematologis t Hematology and Oncology 09/26/21 Madhu Brito MD [facility] [place] [address] Consulting Physician Rheumatology 05/22/23 documented as of this encounter
--- OUTSIDE RECORDS SUMMARY | 2024-07-18 20:27 | XMS_ITS | Encounter Summary ---
Author Organization [facility] Healthcare Address [address] [place] [address] Care Team Providers Care Welding Equipment Sales Representative Name Role Phone Starr Bran Primary Care Provider [phone] Bibiana Schuler MD Unavailable [phone] Cornelius Garcia DO Unavailable [phone] Madhu Brito MD Unavailable [phone] Encounter Details Date Type Department Care Team (Latest Contact Info) Description 06/24/2023 12:30 PM MACHINE ZIPPER TRIMMER - 06/24/2023 11:59 PM [facility] Hospital Encounter [facility] Diagnostic Imaging [address] [place] [address] Discharge Disposition: Discharge to home or self [...] on file Legal Sex Female 10:31 AM MACHINE ZIPPER TRIMMER Gender Identity Female 02/02/2021 7:25 AM CDT [...] 09/25/2023 lisinopriL (PRINIVIL,ZESTRI L) 10 mg tablet Take 1 tablet (10 mg total) by mouth daily 90 tablet 2 10/22/2022 07/15/2023 venlafaxine XR (EFFEXOR-XR) 75 mg 24 hr capsule TAKE 3 CAPSULES DAILY WITH FOOD (DOSE INCREASE TO 225 MG. STOP 150 MG) 270 capsule 3 06/27/2022 09/02/2023 documented as of this encounter Discharge Disposition Disposition Code Departure Means Destination Discharge to home or self care documented in this encounter Plan of Treatment Not on file documented as of this encounter Procedures Procedure Name Priority Date/Time Associated Diagnosis Comments XR CHEST PA LATERAL 2 VIEWS Schedule Routine, Read Routine (OP Routine) 06/24/2023 12:55 PM MACHINE ZIPPER TRIMMER Positive AMINA (antinuclear antibody) PHAN (dyspnea on exertion) documented in this encounter Results * XR Chest Pa Lateral 2 Views (06/24/2023 12:55 PM MACHINE ZIPPER TRIMMER) Anatomical Region Laterality Modality Body, Chest N/A Computed Radiogr aphy 06/24/2023 7:17 PM MACHINE ZIPPER TRIMMER Narrative 06/24/2023 7:18 PM MACHINE ZIPPER TRIMMER EXAM DESCRIPTION: ?? XR CHEST PA LATERAL 2 VIEWS REASON FOR STUDY: Positive AMINA (antinuclear antibody) ?? Patient has no chest complaints at this time. States they are trying to figure out which autoimmune disorder she has ?? TECHNIQUE: 2 ??radiographic view(s) of the chest. COMPARISON: CT chest 02/23/2021 FINDINGS: The cardiomediastinal silhouette appears normal. ??No airspace consolidation or pleural effusion is seen. ?? No significant interval change from prior CT given differences in imaging modality. ? IMPRESSION: No acute cardiopulmonary abnormality. ?? THIS IS AN ELECTRONICALLY VERIFIED FINAL REPORT 06/24/2023 7:18 PM - Electronically signed by ??Josh Wilder M.D. JR: D: ??06/24/2023 7:18 PM T: ??06/24/2023 7:18 PM Report ID: [id number] Reading Location: ??[id number] Procedure Note Josh Wilder MD - 06/24/2023 EXAM DESCRIPTION: XR CHEST PA LATERAL 2 VIEWS REASON FOR STUDY: Positive AMINA (antinuclear antibody) Patient has no chest complaints at this time. States they are trying tofigure out which autoimmune disorder she has TECHNIQUE: 2 radiographic view(s) of the chest. COMPARISON: CT chest 02/23/2021 FINDINGS: The cardiomediastinal silhouette appears normal. No airspace consolidation or pleural effusion is seen. No significant intervalchange from prior CT given differences in imaging modality. IMPRESSION: No acute cardiopulmonary abnormality. THIS IS AN ELECTRONICALLY VERIFIED FINAL REPORT 06/24/2023 7:18 PM - Electronically signed by Josh Wilder M.D. JR: Report ID: [id number] Reading Location: [id number] [facility] XR PROCEDURES Fin al Result documented in this encounter Visit Diagnoses Not on filedocumented in this encounter Care Teams Welding Equipment Sales Representative Relationship Specialty Start Date End Date Starr Bran PA [address] [place] [address] PCP - General Internal Medicine 12/30/18 Bibiana Schuler MD [address] [place] [address] Consulting Physician Gastroenterology 05/11/21 Cornelius Garcia DO [address] [place] [address] MEDICAL ONCOLOGY, [facility] [address] [place] [address] Medical Oncologist/Hematologis t Hematology and Oncology 09/26/21 Madhu Brito MD [address] [place] [address] Consulting Physician Rheumatology 05/22/23 documented as of this encounter
--- OUTSIDE RECORDS SUMMARY | 2024-07-18 20:27 | XMS_ITS | Encounter Summary ---
Author Organization [facility] Healthcare Address [address] [place] [address] Care Team Providers Care Claims Manager Name Role Phone Starr Bran Primary Care Provider [phone] Bibiana Schuler MD Unavailable [phone] Cornelius Garcia DO Unavailable [phone] Madhu Brito MD Unavailable [phone] Reason for Visit * Reason Comments B12 Injection Encounter Details Date Type Department Care Team (Latest Contact Info) Description 07/09/2023 9:00 AM CLINICAL 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 Clinical Support [facility] Group Family Medicine [address] [address] Low serum vitamin B12 (Primary Dx) Social History Tobacco Use Types [...] file Legal Sex Female 10:31 AM 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 Gender Identity Female 02/02/2021 7:25 AM CDT Sexual Orientation Straight 02/02/2021 7: 25 AM CDT documented as of this encounter Plan of Treatment Not on file documented as of this encounter Visit Diagnoses Diagnosis Low serum vitamin B12- Primary documented in this encounter Administered Medications [...] Le ft Deltoid Given 09/19/2023 12:10 PM CLINICAL 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 1,000 mcg R ight Deltoid documented in this encounter Care Teams Claims Manager Relationship Specialty Start Date End Date Starr Bran PA [address] [place] [address] PCP - General Internal Medicine 12/30/18 Bibiana Schuler MD [address] [place] [address] Consulting Physician Gastroenterology 05/11/21 Cornelius Garcia DO [address] [place] [address] MEDICAL ONCOLOGY, [address] [place] [address] Medical Oncologist/Hematologis t Hematology and Oncology 09/26/21 Madhu Brito MD [address] [place] [address] Consulting Physician Rheumatology 05/22/23 documented as of this encounter
--- OUTSIDE RECORDS SUMMARY | 2024-07-18 20:27 | XMS_ITS | Encounter Summary ---
Author Organization [facility] Healthcare Address [address] [place] [address] Care Team Providers Care Supervisor Central Supply Name Role Phone Starr Bran Primary Care Provider [phone] Bibiana Schuler MD Unavailable [phone] Cornelius Garcia DO Unavailable [phone] Reason for Visit * Reason Comments chroninc concerns Pt presents today fo r B12 injection & Flu shot. Pt also is here to discuss Lab results, without any other concerns. Encounter Details Date Type Department Care Team (Late st Contact Info) Description 05/09/2023 9:00 AM CDT Office Visit [facility] Medical Group Family Medicine [address] [facility] [address] [place] [address] Starr Bran PA [address] [facility] [address] [place] [address] Positive AMINA (antinuclear antibody) (Primary Dx); Restless legs; Anemia, unspecified type; Vasomotor symptoms due to menopause; Moderate episode of recurrent major depressive disorder (HCC); Vitamin D deficiency; Essential hypertension; Need for immunization against influenza; Morbid obesity (HCC); BMI 36.0-36.9,adult Social History Tobacco Use Types Packs/Day Years [...] on file 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 Gender Identity Female 02/02/2021 7:25 AM CDT Sexual Orientation Straight 02/02/2021 7: 25 AM CDT documented as of this encounter Last Filed Vital Signs Vital Sign Reading Time Taken Comments Blood Pressure 116/68 05/09/2023 9:09 AM CDT Pulse 75 05/09/2023 9:09 AM CDT Temperature 37.1 ??C (98.7 ??F) 05/09/2023 9:09 AM CD T Respiratory Rate - - Oxygen Saturation 96% 05/09/2023 9:09 AM CDT Inhaled Oxygen Concentration - - Weight 91 kg (200 lb 9.6 oz) 05/09/2023 9:09 AM CDT Height 157.5 cm (5' 2.01 ) 05/09/2023 9:09 AM CD T Body Mass Index 36.68 05/09/2023 9:09 AM CDT documented in this encounter Progress Notes * Starr Bran PA - 05/09/2023 9:00 AM CDT Images from the original note were not included. Subjective/Objective Patient ID: Viktoriya Bell is a 58 y.o. female. Chief Complaint chroninc concerns (Pt presents today for B12 injection & Flu shot. Pt also is here to discuss Lab results, without any other concerns.) HPI Patient presents to followup chronic concerns. Increased restless leg. Increased fatigue H/H have again dropped to 10.5/31.7 Iron Sat down to 13 --other indicies are still in normal range, but trending to anemia again. Low B12 -- due for injection History vasomotor sxs. Has been on Effexor 225mg hs. Feels like it has helped. Noting more pain hs in the legs which is waking her up. Has to move her legs or get up for relief. Started Gabapentin 100mg AM and 300mg hs Can tell improvement but still some leg movement. AMINA 05/02/2023 Positive AMINA and 1:1280 Titer with Centromere Pattern Review of Systems See HPI Vitals: 05/09/23 0909 BP: 116/68 BP Location: Right arm Patient Position: Sitting Pulse: 75 Temp: 37.1 ??C (98.7 ??F) TempSrc: Oral SpO2: 96% Weight: 91 kg (200 lb 9.6 oz) Height: 157.5 cm (5' 2.01 ) Physical Exam Vitals and nursing note [...] Diagnoses and all orders for this visit: Positive AMINA (antinuclear antibody) (R76.8) (Primary) Assessment & Plan: 04/2023----1:1280 Titer with Centromere Pattern Reviewed results with patient. She has had many unexplained medical issues over the last few years including non provoked blood clotting/pulmonary embolism. AMINA had remain negative until this tighterthat came back with a solid high. Will make referral to Rheumatology for assistance and further evaluation to see if there is an underlying autoimmune condition contributing to her symptoms. Orders: - Ambulatory referral to Rheumatology; Future Restless legs (G25.81) Assessment & Plan: Restless leg seems to be related to the iron-deficiency. Will see what Dr. Garcia says. Will continue with the gabapentin as it definitely helps. Can consider increasing as needed. Anemia, unspecified type (D64.9) Assessment & Plan: Patient with known anemia. Has had multiple iron infusions to help with the iron deficiency. She isnoting increased restless leg and fatigue which are [...] verses monitoring based on her current labs. 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 Using Effexor 225 for vasomotor symptoms as well as depression. Moderate episode of recurrent major depressive disorder (HCC) (F33.1) Assessment & Plan: Symptoms still stable. Using Effexor 225 for vasomotor symptoms as well as depression. Vitamin D deficiency (E55.9) Assessment & Plan: Continue supplementation Essential hypertension (I10) Assessment & Plan: Bp is stable/in acceptable range for any co-morbidities. Encouraged to limit sodium intake and exercise for weight control. Continue lisinopril 10 Need for immunization against influenza (Z23) Assessment & Plan: Flu vaccine updated in the office today Orders: - Flu Vaccine Quad PF 6m+ IM - Fluarix / FluLaval / Fluzone Morbid obesity (HCC) (E66.01) Assessment & Plan: Discussed the patient's BMI. The BMI is above average. BMI management plan is completed. BMI Follow-up includes: nutrition counseling, exercise counseling and education provided. BMI 36.0-36.9,adult (Z68.36) Assessment & Plan: Discussed [...] between 35.00-39.99. *This note is dictated using Zenyt[employer] voice recognition software, variances in spelling and vocabulary are possible and unintentional.* Starr Bran PA-C documented in this encounter Miscellaneous Notes * Assessment & Plan Note - Starr Bran PA - 05/18/2023 11:51 AM CDT Associated Problem(s): Need for immunization against influenza (Resolved 10/06/2023) Flu vaccine updated in the office today * Assessment & Plan Note - Starr Bran PA - 05/18/2023 11:51 AM CDT Associated Problem(s): Restless legs Restless leg seems to be related to the iron-deficiency. Will see what Dr. Garcia says. Will continue with the gabapentin as it definitely helps. Can consider increasing as needed. * Assessment & Plan Note - Starr Bran PA - 05/18/2023 11:50 AM CDT Associated Problem(s): Anemia Patient with known anemia. Has had multiple iron infusions to help with the iron deficiency. She isnoting increased restless leg and fatigue which are [...] verses monitoring based on her current labs. [id number] supplementation * Assessment & Plan Note - Starr Bran PA - 05/18/2023 11:49 AM CDT Associated Problem(s): Vasomotor symptoms due to menopause Symptoms still stable. Using Effexor 225 for vasomotor symptoms as well as depression. * Assessment & Plan Note - Starr Bran PA - 05/18/2023 11:49 AM CDT Associated Problem(s): Moderate episode of recurrent major depressive disorder (HCC) Symptoms still stable. Using Effexor 225 for vasomotor symptoms as well as depression. * Assessment & Plan Note - Starr Bran PA - 05/18/2023 11:47 AM CDT Associated Problem(s): Vitamin D deficiency Continue supplementation * Assessment & Plan Note - Starr Bran PA - 05/18/2023 11:47 AM CDT Associated Problem(s): Essential hypertension Bp is stable/in acceptable range for any co-morbidities. Encouraged to limit sodium intake and exercise for weight control. Continue lisinopril 10 * Assessment & Plan Note - Starr Bran PA - 05/18/2023 11:47 AM CDT Associated Problem(s): Positive AMINA (antinuclear antibody) 04/2023----1:1280 Titer with Centromere Pattern Reviewed results with patient. She has had many unexplained medical issues over the last few years including non provoked blood clotting/pulmonary embolism. AMINA had remain negative until this tighterthat came back with a solid high. Will make referral to Rheumatology for assistance and further evaluation to see if there is an underlying autoimmune condition contributing to her symptoms. * Assessment & Plan Note - Chana Burr MA - 05/09/2023 9:12 AM CDTAssociated Problem(s): BMI 35.0-35.9,adult (Resolved 11/20/2023) Discussed the patient's BMI. The BMI is above average. BMI management plan is completed. BMI Follow-up includes: nutrition counseling, exercise counseling and education provided. Patient has an obesity-related condition (not limited to: hypertension, obstructive sleep apnea, osteoarthritis, hyperlipidemia, diabetes, etc.). Therefore, morbid obesity may be documented for patients with a BMI between 35.00-39.99. * Assessment & Plan Note - Chana Burr MA - 05/09/2023 9:12 AM CDTAssociated Problem(s): Morbid obesity (HCC) Discussed the patient's BMI. The BMI is above average. BMI management plan is completed. BMI Follow-up includes: nutrition counseling, exercise counseling and education provided. documented in this encounter Plan of Treatment Not on file documented as of this encounter Visit Diagnoses Diagnosis Positive AMINA (antinuclear antibody)- Primary Other and unspecified nonspecific immunological findings Restless legs Restless legs syndrome (RLS) Anemia, unspecified type Vasomotor symptoms due to menopause Moderate episode of recurrent major depressive disorder (HCC) Vitamin D deficiency Essential hypertension Unspecified essential hypertension Need for immunization against influenza Need for prophylactic vaccination and inoculation against influenza Morbid obesity (HCC) Morbid obesity BMI 36.0-36.9,adult documented in this encounter Administered Medications Active Administered Medications - up to 3 most recent administrations Medication Order MAR Action Action Date Dose Rate Site cyanocobalamin (Vitamin B-12) injection 1,000 mcg 1,000 mcg, intramuscular, Every 30 days, First dose on Daphne 10/04/22 at 1030Indications:Low vitamin B12 level Given 05/09/2023 8:58 AM CDT 1,000 mcg Right Deltoid Given 04/15/2023 10:09 AM CDT 1,000 mcg L eft Deltoid Given 03/19/2023 9:30 AM CDT 1,000 mcg Ri ght Deltoid documented in this encounter Orders Immunization/Injection Count Last Ordered Date First Ordered Date FLU VACCINE QUAD PF 6M+ IM - FLUARIX / FLULAVAL / FLUZONE- SYRINGE 1 05/09/2023 documented in this encounter Care Teams Supervisor Central Supply Relationship Specialty Start Date End Date Starr Bran PA [address] [place] [address] PCP - General Internal Medicine 12/30/18 Bibiana Schuler MD [address] [place] [address] Consulting Physician Gastroenterology 05/11/21 Cornelius Garcia DO [address] [facility] MEDICAL ONCOLOGY, [facility] [address] [place] [address] Medical Oncologist/Hematologis t Hematology and Oncology 09/26/21 documented as of this encounter
--- OUTSIDE RECORDS SUMMARY | 2024-07-18 20:27 | XMS_ITS | Encounter Summary ---
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 Office Visit [facility] Family Medicine [address] [place] [address] Starr Bran PA [address] [place] [id number] Restless legs (Primary Dx); Systemic sclerosis (CMS/HCC) (HCC); Moderate episode of recurrent major depressive disorder (HCC); Vitamin D deficiency; Essential hypertension; B12 deficiency; Morbid obesity (HCC); BMI 35.0-35.9,adult Social History Tobacco Use Types Packs/Day Years [...] file Legal Sex 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 Gender Identity Female 02/02/2021 7:25 AM CDT Sexual Orientation Straight 02/02/2021 7: 25 AM CDT documented as of this encounter Last Filed Vital Signs Vital Sign Reading Time Taken Comments Blood Pressure 120/70 09/19/2023 11:21 AM HUMAN SERVICE WORKER Pulse 90 09/19/2023 11:21 AM HUMAN SERVICE WORKER Temperature 36.9 ??C (98.5 ??F) 09/19/2023 11:[address] Respiratory Rate - - Oxygen Saturation 98% 09/19/2023 11:21 AM HUMAN SERVICE WORKER Inhaled Oxygen Concentration - - Weight 91.6 kg (202 lb) 09/19/2023 11:21 AM HUMAN SERVICE WORKER Height 160 cm (5' 3 ) 09/19/2023 11:21 AM HUMAN SERVICE WORKER Body Mass Index 35.78 09/19/2023 11:21 AM HUMAN SERVICE WORKER documented in this encounter Ordered Prescriptions Prescription Sig Dispense Quantity Refills Last Filled Start Date End Date lisinopriL (PRINIVIL,ZESTRIL) 10 mg tablet Take 1 tablet (10 mg total) by mouth daily 10/06/2023 07/09/2024 documented in this encounter Progress Notes * Starr Bran PA - 09/19/2023 11:00 AM CST Images from the original note were not included. Subjective/Objective Patient ID: Viktoriya Bell is a 58 y.o. female. Chief Complaint Wellness Visit HPI Patient presents to followup chronic concerns. Mom passed in April. got a liver transplant in July so LOTS of changes Increased restless leg. Increased fatigue H/H have [...] AMINA and 1:1280 Titer with Centromere Pattern Identified with Systemic Sclerosis by [facility] Rheumatology On [employer] Patient has FMLA forms --- wants to continue to be home 3 days and in the office 2 days. Review of Systems See HPI Vitals: 09/19/23 1121 BP: 120/70 BP Location: Right arm Patient Position: Sitting Pulse: 90 Temp: 36.9 ??C (98.5 ??F) TempSrc: Oral SpO2: 98% Weight: 91.6 kg (202 lb) Height: 160 cm (5' 3 ) [...] Diagnoses and all orders for this visit: Restless legs (G25.81) (Primary) Assessment & Plan: Patient with restless leg. We will make sure labs continue to remain stable. Continue with the gabapentin Systemic sclerosis (CMS/HCC) (HCC) (M34.9) Assessment & Plan: Continue management with [facility] Rheumatology. Moderate episode of recurrent major depressive disorder (HCC) (F33.1) Assessment & Plan: Continue venlafaxine 225 mg daily Vitamin D deficiency (E55.9) Assessment & Plan: Supplement Essential hypertension (I10) Assessment & Plan: Bp is stable/in acceptable range for any co-morbidities. Encouraged to limit sodium intake and exercise for weight control. Continue lisinopril 10 B12 deficiency (E53.8) - cyanocobalamin (Vitamin B-12) injection 1,000 mcg; Inject 1 mL (1,000 mcg total) into the muscle as instructed once Morbid obesity (HCC) (E66.01) Assessment & Plan: Discussed the patient's BMI. The BMI is above average. BMI management plan is completed. BMI Follow-up includes: nutrition counseling, exercise counseling and education provided. Patient has an obesity-related condition (not limited to: hypertension, obstructive sleep apnea, osteoarthritis, hyperlipidemia, diabetes, etc.). Therefore, morbid obesity may be documented for patients with a BMI between 35.00-39.99. BMI 35.0-35.9,adult (Z68.35) Assessment & Plan: Discussed the patient's BMI. The BMI is above average. BMI management plan is completed. BMI Follow-up includes: nutrition counseling, exercise counseling and education provided. Other orders - lisinopriL (PRINIVIL,ZESTRIL) 10 mg tablet; Take 1 tablet (10 mg total) by mouth daily *This note is dictated using TeachScape voice recognition software, variances in spelling and vocabulary are possible and unintentional.* Starr Bran PA-C documented in this encounter Miscellaneous Notes * Assessment & Plan Note - Starr Bran PA - 10/06/2023 5:11 PM CDT Associated Problem(s): Systemic sclerosis (HCC) Continue management with [facility] Rheumatology. * Assessment & Plan Note - Starr Bran PA - 10/06/2023 5:11 PM CDT Associated Problem(s): Morbid obesity (HCC) Discussed [...] Plan Note - Starr Bran PA - 10/06/2023 5:11 PM CDT Associated Problem(s): BMI 35.0-35.9,adult (Resolved 11/20/2023) Discussed the patient's BMI. The BMI is above average. BMI management plan is completed. BMI Follow-up includes: nutrition counseling, exercise counseling and education provided. * Assessment & Plan Note - Starr Bran PA - 10/06/2023 5:11 PM CDT Associated Problem(s): Restless legs Patient with restless leg. We will make sure labs continue to remain stable. Continue with the gabapentin * Assessment & Plan Note - Starr Bran PA - 10/06/2023 5:11 PM CDT Associated Problem(s): Moderate episode of recurrent major depressive disorder (HCC) Continue venlafaxine 225 mg daily * Assessment & Plan Note - Starr Bran PA - 10/06/2023 5:10 PM CDT Associated Problem(s): Low vitamin B12 level Continue supplementation with injections * Assessment & Plan Note - Starr Bran PA - 10/06/2023 5:10 PM CDT Associated Problem(s): Vitamin D deficiency Supplement * Assessment & Plan Note - Starr Bran PA - 10/06/2023 5:08 PM CDT Associated Problem(s): Essential hypertension Bp is stable/in acceptable range for any co-morbidities. Encouraged to limit sodium intake and exercise for weight control. Continue lisinopril 10 * Addendum Note - Starr Bran PA - 09/19/2023 11:00 AM CSTAddended by: STARR BRAN on: 10/06/2023 05:14 PM Modules accepted: Level of Service documented in this encounter Plan of Treatment Not on file documented as of this encounter Visit Diagnoses Diagnosis Restless legs- Primary Restless legs syndrome (RLS) Systemic sclerosis (HCC) Systemic sclerosis Moderate episode of recurrent major depressive disorder (HCC) Vitamin D deficiency Essential hypertension Unspecified essential hypertension B12 deficiency Morbid obesity (HCC) Morbid obesity BMI 35.0-35.9,adult documented in this encounter Administered Medications Active [...] Le ft Deltoid Given 09/19/2023 12:10 PM HUMAN SERVICE WORKER 1,000 mcg R ight Deltoid documented in this encounter Discontinued Medications Medication Sig Discontinue Reason Start Date End Da te lisinopriL (PRINIVIL,ZESTRIL) 10 mg tablet TAKE 1 TABLET DAILY Reorder 07/15/2023 10/06/2023 documented as of this encounter Orders Medications Ordered That Sonido ht Not Have Been Administered Count Last Ordered Date First Ordered Date cyanocobalamin (Vitamin B-12 ) injection 1,000 mcg 1 09/19/2023 documented in this encounter Care Teams Displayer Merchandise Relationship Specialty Start Date End Date Starr Bran PA [address] [place] [address] PCP - General Internal Medicine 12/30/18 Bibiana Schuler MD [address] [place] [address] Consulting Physician Gastroenterology 05/11/21 Cornelius Garcai DO [address] [place] [address] MEDICAL ONCOLOGY, [facility] [address] [place] [address] Medical Oncologist/Hematologis t Hematology and Oncology 09/26/21 Madhu Brito MD [address] [place] [address] Consulting Physician Rheumatology 05/22/23 documented as of this encounter
--- OUTSIDE RECORDS SUMMARY | 2024-07-18 20:27 | XMS_ITS | Encounter Summary ---
Author Organization [facility] Address [address] [place] [address] Phone Care Team Providers Care Video Producer Name Role Phone Starr Bran Primary Care Provider [phone] Bibiana Schuler MD Unavailable [phone] Cornelius Garcia DO Unavailable [phone] Madhu Brito MD Unavailable [phone] Reason for Referral * Diagnostic Lab (Routine) - Closed Specialty Diagnoses / Procedures Referred By Contac t Referred To Contact Diagnoses Positive AMINA (antinuclear antibody) H/O blood clots Procedures Direct antiglobulin test Jing Erwin PA [address] [place] [address] Phone: tel: fax: Referral ID Status Reason Start Date Expiration Date Visits Re quested Visits Authorized [id number] Closed 06/17/2023 07/16/2024 1 1 IER OFFICE * Diagnostic Lab (Routine) - Closed Specialty Diagnoses / Procedures Referred By Contac t Referred To Contact Lab Diagnoses Positive AMINA (antinuclear antibody) Procedures AVISE CTD + sle monitor - Miscellaneous Test Jing Erwin PA [address] [place] [address] Phone: tel: fax: Referral ID Status Reason Start Date Expiration Date Visits Re quested Visits Authorized [id number] Closed 06/17/2023 07/16/2024 1 1 IER OFFICE Encounter Details Date Type Department Care Team (Late st Contact Info) Description 06/17/2023 1:15 PM CASHIER OFFICE Office Visit [facility] [address] [place] [phone] Jing Erwin PA [address] [place] [address] Positive AMINA (antinuclear antibody) (Primary Dx); PHAN (dyspnea on exertion); Fatigue, unspecified type; H/O blood clots; Iron deficiency anemia due to chronic blood [...] on file Legal Sex Female 10:31 AM CASHIER OFFICE Gender Identity Female 02/02/2021 7:25 AM CDT Sexual Orientation Straight 02/02/2021 7: 25 AM CDT documented as of this encounter Last Filed Vital Signs Vital Sign Reading Time Taken Comments Blood Pressure 130/86 06/17/2023 1:13 PM CASHIER OFFICE Pulse 65 06/17/2023 1:13 PM CASHIER OFFICE Temperature - - Respiratory Rate - - Oxygen Saturation 100% 06/17/2023 1:13 PM CASHIER OFFICE Inhaled Oxygen Concentration - - Weight 91 kg (200 lb 9.6 oz) 06/17/2023 1:13 PM CASHIER OFFICE Height 160 cm (5' 3 ) 06/17/2023 1:13 PM CASHIER OFFICE Body Mass Index 35.53 06/17/2023 1:13 PM CASHIER OFFICE documented in this encounter Progress Notes * Jing Erwin PA - 06/17/2023 1:15 PM CST Images from the original note were not included. Subjective/Objective Patient ID: Viktoriya Bell is a 58 y.o. female. Chief Complaint HPI Patient is a 58-year-old female presenting with a positive AMINA >1:1280 centromere pattern. Hx of anemia since 2019. Initially c/o PHAN and noted Hgb 4.6 and given blood transfusions and IV iron. Had colo and EGD showing antral gastritis with Bx reactive gastropathy. 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 Follows with GI Dr. Schuler. 2020 noted some chest pain and PHAN. Had imaging that showed PE as well as DVT. Admitted again and put on blood thinners for several months without any recurrent events so was then stopped in 2021. Currently maintained on aspirin 81mg daily. Continues to have low iron/blood counts. Started seeing heme Dr. Garcia who did full work up that was negative for any predisposing factors or hereditary blood clotting disorders and felt she needed a complete hysterectomy. When she had the blood clots, all hormonal control was stopped which then caused her to have menorrhagia. Had total hysterectomy in 2020 but states this did not help with anemia and continues to get infusion about 3 times per year. Last transfusion was 09/2022. Denies Fhx of blood clots/clotting disorders. Notes joint pain mainly in the knees worse with stairs. AM stiffness lasts 1 hour. Still c/o PHAN worse going up a flight of stairs. States she is not physically active and works a sedentary job. Works from home 3 days per week. Lives in a split level house. Denies rashes, photosensitivity, sicca sx, raynauds, oral ulcers, eye pain or redness, cough or dyspnea, pleuritic pains. Denies dysphagia. Denies hx of psoriasis. Medical hx: RLS, anemia, vasomotor symptoms 2/2 menopause, HTN, Hx PE, Hx RLE DVT Denies other heart, lung, liver, thyroid, and/or kidney issues. Denies hx of gout, blood clots, transfusions, or hepatitis. 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 Medication Taking/taken D/C or avoidance reason Hydroxychloroquine Methotrexate Leflunomide Azathioprine Sulfasalazine CellCept Humira Enbrel Simponi Cimzia Simponi aria Remicade Cosentyx Taltz Orencia Stelara Tremfya Xeljanz Rinvoq Actemra Kevzara Olumiant Kineret Benlysta Rituxan Otezla NSAIDs Prednisone Review of Systems Constitutional:Positive for fatigue. Negative for fever. HENT: Negative for mouth sores. Eyes: Negative for redness. Respiratory: Negative for shortness of breath. Cardiovascular: Negative for chest pain. Gastrointestinal: Negative for blood in stool and diarrhea. Negative for dysphagia. Musculoskeletal: Positive for arthralgias. Skin: Negative for rash. Physical Exam Constitutional: appears well-developed and well-nourished. HENT: Head: Normocephalic. Right Ear: External ear normal. Left Ear: External ear normal. Nose: Nose normal. Eyes: Conjunctivae and EOM are normal. Pupils are equal and round. Right eye exhibits no discharge.Left eye exhibits no discharge. No scleral icterus. Neck: Normal range of motion. Cardiovascular: Normal rate, regular rhythm, normal heart sounds. Exam reveals no gallop and no friction rub. No murmur heard. Pulmonary/Chest: Effort normal. No respiratory distress. no wheezes. no rales. Musculoskeletal: [place]. Soft tissue puffiness, but no obvious synovitis. Neurological: alert. Skin: Skin is warm and dry. No rash noted. No erythema. No pallor. No sclerodactyly or telangiectasias. Psychiatric: normal mood and affect. behavior is normal. LABS: 04/2023: RBC 3.58, Hgb 10.5, Hct 31.7, B12 479, TIBC 303, UIBC 264, iron 39, iron sat 13 % (L), HgA1c 4.9%, lipid panel nl, CMP nl, TSH 1.70, +AMINA >1:1280 centromere 02/2023: +AMINA, dsDNA <1, C[employer]ON AND [employer]PPLY SUPERVISOR <0.2, SM <0.2, SS-A <0.2, SS-B <0.2 IMAGING: EGD 11/2022: Impression: - Normal esophagus. - [...] for this visit: Positive AMINA (antinuclear antibody) (Primary) Assessment & Plan: 58-year-old female with [...] Sooner if needed. Seen with Dr. Brito. 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 Will better evaluate serologies with AVISE panel today. 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 Will better evaluate serologies with AVISE panel today. IER OFFICE * Assessment & Plan Note - Jing Erwni PA - 06/17/2023 2:11 PM CASHIER OFFICE Associated Problem(s): Positive AIMNA (antinuclear antibody) 58-year-old female with PMHx of RLS, anemia [...] Sooner if needed. Seen with Dr. Brito. IER OFFICE IER OFFICE documented in this encounter Plan of Treatment Not on file documented as of this encounter Procedures Procedure Name Priority Date/Time Associated Diagnosis Comments XR CHEST PA LATERAL 2 VIEWS Schedule Routine, Read Routine (OP Routine) 06/24/2023 12:55 PM CASHIER OFFICE Positive AMINA (antinuclear antibody) PHAN (dyspnea on exertion) LUPUS ANTICOAGULANT PANEL PLUS REFLEXES Routine 06/17/2023 2:12 PM CASHIER OFFICE Positive AMINA (antinuclear antibody) H/O blood clots HEPATITIS PANEL, ACUTE Routine 06/17/2023 2:12 PM CASHIER OFFICE Fatigue, unspecified type ERYTHROCYTE SEDIMENTATION RATE Routine 06/17/2023 2:12 PM CASHIER OFFICE Positive AMINA (antinuclear antibody) DIRECT ANTIGLOBULIN TEST Routine 06/17/2023 2:12 PM CASHIER OFFICE Positive AMINA (antinuclear antibody) H/O blood clots CRP (ACUTE PHASE) Routine 06/17/2023 2:1 2 PM CASHIER OFFICE Positive AMINA (antinuclear antibody) MISCELLANEOUS LAB TEST Routine 06/17/2023 12:56 PM CASHIER OFFICE Positive AMINA (antinuclear antibody) documented in this encounter Results * XR Chest Pa Lateral 2 Views (06/24/2023 12:55 PM CASHIER OFFICE) Anatomical Region Laterality Modality Body, Chest N/A Computed Radiogr aphy 06/24/2023 7:17 PM CASHIER OFFICE Narrative 06/24/2023 7:18 PM CASHIER OFFICE EXAM DESCRIPTION: ?? XR CHEST PA LATERAL [...] PM T: ??06/24/2023 7:18 PM Report ID: [id number] Reading Location: ??[id number] Procedure Note Josh Wilder MD - 06/24/2023 [...] PM - Electronically signed by Josh Wilder M.D., JR: Report ID: [id number] Reading Location: [id number] Jing SALVADOR IMG XR PROCEDURES Fin al Result * Hepatitis panel, acute Blood (06/17/2023 2:12 PM CASHIER OFFICE) Hep A IgM NON-REACTI VE NON-REACT EMILE [facility] Comment: For additional information, please refer to http://WorkTouch.[place]. com. cn/faq/AYD336 (This link is being provided for informational/ educational purposes only.) HepBsAg NON-REACTI VE NON-REACT EMILE [facility] Comment: For additional information, please refer to http://Baeta/faq/GPF697 (This link is being provided for informational/ educational purposes only.) Hep B core IgM NON-REACTI VE NON-REACT EMILE [facility] Comment: For additional information, please refer to http://Baeta/faq/UEL860 (This link is being provided for informational/ educational purposes only.) Hep C Ab NON-REACTI VE NON-REACT EMILE [facility] Comment: HCV antibody was non-reactive. There is no laboratory evidence of HCV infection. In most cases, no further action is required. However, if recent HCV exposure is suspected, a test for HCV RNA (test code 04871) is suggested. For additional information please refer to http://Baeta/faq/AZE54n1 (This link is being provided for informational/ educational purposes only.) Blood 06/17/2023 2:12 PM CASHIER OFFICE 06/17/2023 2:13 PM CASHIER OFFICE Jing SALVADOR LAB MICROBIOLOGY - NERAL ORDERABLES Final Result [facility] [address] [facility] [place] [address] * Erythrocyte sedimentation rate (06/17/2023 2:12 PM CASHIER OFFICE) Erythrocyte sedimentation rate 6 < OR = 30 mm/h [facility] Blood 06/17/2023 2:12 PM CASHIER OFFICE 06/17/2023 2:13 PM CASHIER OFFICE Jing SALVADOR LAB BLOOD ORDERABLES Final Result Performing Organization Address [facility] Co de Phone Number [facility] [address] [place] [address] * CRP (acute phase) (06/17/2023 2:12 PM CASHIER OFFICE) Pathologist [facility] C-RP 2.9 <8.0 mg/L [facility] Blood 06/17/2023 2:12 PM CASHIER OFFICE 06/17/2023 2:13 PM CASHIER OFFICE Jing Josiane [facility]AD[facility] LAB BLOOD ORDERABLES Final Result Performing Organization Address [facility] de Phone Number [facility] [address] [place] [address] * Direct antiglobulin test (06/17/2023 2:12 PM CASHIER OFFICE) Pathologist [facility] Elsie, Direct NEGATIVE NEGATIVE [facility] Blood 06/17/2023 2:12 PM CASHIER OFFICE 06/17/2023 2:13 PM CASHIER OFFICE Jing SALVADOR LAB BLOOD BANK TEST O RDERABLES Final Result Performing Organization Address [facility] Co de Phone Number [facility] [address] [place] [address] * Lupus Anticoagulant Panel plus Reflexes (06/17/2023 2:12 PM CASHIER OFFICE) [facility] Lupus anticoagulant NOT DETECTED [facility] Comment: A Lupus Anticoagulant is not detected. For more information on this test, go to: http://education.[place]. com. cn/faq/FNJ38l2 (This link is being provided for informational/ educational purposes only.) This interpretation is based on the following test results: Lupus anticoagulant, PTT 30 < OR = 40 sec [facility] DRVVT screen 41 < OR = 45 sec [facility] Blood 06/17/2023 2:12 PM CASHIER OFFICE 06/17/2023 2:13 PM CASHIER OFFICE Jing SALVADOR LAB BLOOD ORDERABLES Final Result Performing Organization Address [facility] Co de Phone Number [facility] [address] [facility] [place] [address] * AVISE CTD + sle monitor - Miscellaneous Test (06/17/2023 12:56 PM CASHIER OFFICE) Miscellaneous Jing SALVADOR LAB BLOOD ORDERABLES Final Result Performing Organization Address [facility] Co de Phone Number EXTERNAL LAB documented in this encounter Visit Diagnoses Diagnosis Positive AMINA (antinuclear antibody)- Primary Other and unspecified nonspecific immunological findings PHAN (dyspnea on exertion) Other dyspnea and respiratory abnormality Fatigue, unspecified type H/O blood clots Iron deficiency anemia due to chronic blood loss Iron deficiency anemia secondary to blood loss (chronic) documented in this encounter Care Teams Video Producer Relationship Specialty Start Date End Date Starr Bran PA [address] [place] [address] PCP - General Internal Medicine 12/30/18 Bibiana Schuler MD [address] [place] [address] Consulting Physician Gastroenterology 05/11/21 Cornelius Garcia DO [address] [place] [address] MEDICAL ONCOLOGY, [address] [place] [address] Medical Oncologist/Hematologis t Hematology and Oncology 09/26/21 Madhu Brito MD [address] [place] [address] Consulting Physician Rheumatology 05/22/23 documented as of this encounter
--- OUTSIDE RECORDS SUMMARY | 2024-07-18 20:27 | XMS_ITS | Encounter Summary ---
Author Organization [facility] Healthcare Address [address] [place] [address] Care Team Providers Care Flask Handler Name Role Phone Starr Bran Primary Care Provider [phone] Bibiana Schuler MD Unavailable [phone] Cornelius Garcia DO Unavailable [phone] Usman Brito MD Unavailable Reason for Visit * Cardiology (Routine) - Closed Specialty Diagnoses / Procedures Referred By Contlaura t Referred To Contact Diagnoses Positive AMINA (antinuclear antibody) PHAN (dyspnea on exertion) Systemic sclerosis (HCC) Procedures Transthoracic Echo (TTE) Complete W Doppler/CF Joyce Erwin PA [address] [place] [address] Phone: tel: fax: External Order Referral ID Status Reason Start Date Expiration Date Visits Re quested Visits Authorized [id number] Closed 07/11/2023 08/09/2024 1 1 Encounter Details Date Type Department Care Team (Latest Contact Info) Description 09/05/2023 8:00 AM WEB METHODS DEVELOPER - 09/05/2023 11:59 PM WEB METHODS DEVELOPER Hospital Encounter [facility] Cardiac Testing [address] [place] [id number] Discharge Disposition: Discharge to home or self [...] on file Legal Sex Female 10:31 AM WEB METHODS DEVELOPER Gender Identity Female 02/02/2021 7:25 AM CDT [...] Procedure Name Priority Date/Time Associated Diagnosis Comments TRANSTHORACIC ECHO (TTE) COMPLETE W DOPPLER/CF WO CONTRAST Routine 09/05/2023 8:16 AM WEB METHODS DEVELOPER Positive AMINA (antinuclear antibody) PHAN (dyspnea on exertion) Systemic sclerosis (CMS/HCC) (HCC) documented in this encounter Results * TRANSTHORACIC ECHO (TTE) COMPLETE W DOPPLER/CF WO CONTRAST (09/05/2023 8:16 AM WEB METHODS DEVELOPER) Anatomical Region Laterality Modality Ultrasound 09/05/2023 8:16 AM WEB METHODS DEVELOPER Narrative 09/05/2023 5:15 PM WEB METHODS DEVELOPER ? Adult Echocardiogram + ----- ---+ :Name: VIKTORIYA BELL ?Study Date: 09/05/2023 ?Status: MHE ?: : ?[facility] ?: : ?Weight: 205 lbBP: 164/86 mmHg: :: 1965 ? Gender: Female ?BSA: 2.0 m2 ?: :Reason For Study: Dyspnea on Exertion ?: :Ordering Physician: MEUTH, ? : :JOYCE ?: :Referring Physician: ? : :RONHOLM, USMAN GLADIS ?: :Performed By: Kallie ? : :BERNICE Fierro ? : + ----- ---+ Procedure A two-dimensional transthoracic echocardiogram with color flow and Doppler was performed. Left Ventricle The left ventricle is normal in size. There is normal left ventricular wall thickness. Left ventricular systolic function is normal. Ejection Fraction = 55-60%. The left ventricular wall motion is normal. Right Ventricle The right ventricle is normal size. There is normal right ventricular wall thickness. The right ventricular systolic function is normal. Atria The left atrial size is normal. Right atrial size is normal. Mitral Valve The mitral valve is normal. Tricuspid Valve The tricuspid valve is normal. Aortic Valve Aortic valve structure is normal. No aortic stenosis . No aortic regurgitation is present. Pulmonic Valve The pulmonic valve is not well visualized. Great Vessels The aortic root is normal size. Pericardium There is no pericardial effusion. Diastology Grade I diastolic dysfunction, (abnormal relaxation pattern). Interpretation Summary The left ventricle is normal in size. There is normal left ventricular wall thickness. Left ventricular systolic function is normal. Ejection Fraction = 55-60%. The left ventricular wall motion is normal. The right ventricle is normal size. There is normal right ventricular wall thickness. The right ventricular systolic function is normal. Grade I diastolic dysfunction, (abnormal relaxation pattern). + + :Measurements with Normals ?: : ?(0.6-1.2 ?LVIDd: ?(3.5-5.7 ?? Ao root diam: ?(2.0-3.7 ?? : :IVSd: 1.2 cmcm) ? 3.9 cm ?cm) ?3.3 cm ? cm) ?: :LVPWd: ?(0.6-1.1 ?LVIDs: ?(3.1-4.6 ?? LA dimension: ?(1.9-4.0 ?? : :1.3 cm ?cm) ? 3.1 cm ?cm) ?3.0 cm ? cm) ?: + + MMode/2D Measurements & Calculations RVDd: 2.4 cm FS: 21.8 % ?Ao root area: 8.6 cm2 ??LVOT diam: 2.0 cm ? EDV(Teich): 65.9 ml ?LVOT area: 3.1 cm2 ? ESV(Teich): 36.4 ml Doppler Measurements & Calculations MV E max john: ? MV dec time: ? Ao V2 max: ?LV V1 max P.3 cm/sec ? 0.18 sec ? 148.0 cm/sec ?5.7 mmHg MV A max john: ?Ao max P.8 mmHg LV V1 mean P.4 cm/sec ?Ao V2 mean: ? 4.0 mmHg MV E/A: 0.97 ? 99.3 cm/sec ? LV V1 max: ? Ao mean P.0 faRy898.0 cm/sec ? Ao V2 VTI: 27.9 cm ??LV V1 mean: ? VIANEY(I,D): 2.8 cm2 ?? 90.3 cm/sec ? LV V1 VTI: 24.5 cm ? VIANEY(V,D): 2.5 cm2 ? SV(LVOT): 77.0 ml ?? PA V2 max: ? PI end-d john: ? RV V1 max: ?102.6 cm/sec ? 95.0 cm/sec ? 75.8 cm/sec ?PA max PG: ?4.2 mmHg ? TR max john: ? RAP systole: 225.0 cm/sec ?3.0 mmHg TR max P.3 mmHg RVSP(TR): 23.3 mmHg Electronically signed by: Moises Prieto MD 09/05/2023 05:15 PM Procedure Note Moises Prieto MD - 09/05/2023 Adult Echocardiogram + ----- ---+ :Name: VIKTORIYA BELL Study Date: 09/05/2023 Status: [facility]: : Patient Location: [facility] CARD^^^EHeight: 63 in: : Weight: 205lbBP: 164/86 mmHg: :: 1965 Gender: Female BSA: 2.0 m2: :Reason For Study: Dyspnea on Exertion: :Ordering Physician: DIANE,: :JOYCE: :Referring Physician:: :USMAN BRITO: :Performed By: Kallie: :BERNICE Fierro: + ----- ---+ Procedure A two-dimensional transthoracic echocardiogram with color flow and Dopplerwas performed. Left Ventricle The left ventricle is normal in size. There is normal left ventricularwall thickness. Left ventricular systolic function is normal. Ejection Fraction= 55-60%. The left ventricular wall motion is normal. Right Ventricle The right ventricle is normal size. There is normal right ventricularwall thickness. The right ventricular systolic function is normal. Atria The left atrial size is normal. Right atrial size is normal. Mitral Valve The mitral valve is normal. Tricuspid Valve The tricuspid valve is normal. Aortic Valve Aortic valve structure is normal. No aortic stenosis . No aorticregurgitation is present. Pulmonic Valve The pulmonic valve is not well visualized. Great Vessels The aortic root is normal size. Pericardium There is no pericardial effusion. Diastology Grade I diastolic dysfunction, (abnormal relaxation pattern). Interpretation Summary The left ventricle is normal in size. There is normal left ventricular wall thickness. Left ventricular systolic function is normal. Ejection Fraction = 55-60%. The left ventricular wall motion is normal. The right ventricle is normal size. There is normal right ventricular wall thickness. The right ventricular systolic function is normal. Grade I diastolic dysfunction, (abnormal relaxation pattern). + + :Measurements with Normals: : (0.6-1.2 LVIDd: (3.5-5.7 Ao root diam:(2.0-3.7 : :IVSd: 1.2 cmcm) 3.9 cm cm) 3.3 cm cm): :LVPWd: (0.6-1.1 LVIDs: (3.1-4.6 LA dimension:(1.9-4.0 : :1.3 cm cm) 3.1 cm cm) 3.0 cm cm): + + MMode/2D Measurements & Calculations RVDd: 2.4 cm FS: 21.8 % Ao root area: 8.6 cm2 LVOT diam: 2.0cm EDV(Teich): 65.9 ml LVOT area: 3.1cm2 ESV(Teich): 36.4 ml Doppler Measurements & Calculations MV E max john: MV dec time: Ao V2 max: LV V1 max P.3 cm/sec 0.18 sec 148.0 cm/sec 5.7 mmHg MV A max john: Ao max P.8 mmHg LV V1 meanP.4 cm/sec Ao V2 mean: 4.0 mmHg MV E/A: 0.97 99.3 cm/sec LV V1 max: Ao mean P.0 wuFe232.0 cm/sec Ao V2 VTI: 27.9 cm LV V1 mean: VIANEY(I,D): 2.8 cm2 90.3 cm/sec LV V1 VTI: 24.5cm VIANEY(V,D): 2.5 cm2 SV(LVOT): 77.0 ml PA V2 max: PI end-d john: RV V1 max: 102.6 cm/sec 95.0 cm/sec 75.8 cm/sec PA max P.2 mmHg TR max john: RAP systole: 225.0 cm/sec 3.0 mmHg TR max P.3 mmHg RVSP(TR): 23.3 mmHg Electronically signed by: Moises Prieto MD 09/05/2023 05:15 PM us Joyce SALVADOR CV ECHO PROCEDURES Fi nal Result documented in this encounter Visit Diagnoses Not on filedocumented in this encounter Care Teams Flask Handler Relationship Specialty Start Date End Date Starr Bran PA [address] [facility] [address] [place] [address] PCP - General Internal Medicine 12/30/18 Bibiana Schulre MD [address] [facility] [address] [place] [address] Consulting Physician Gastroenterology 05/11/21 Cornelius Garcia DO [facility]8 [facility] MEDICAL ONCOLOGY, [facility] [address] [place] [address] Medical Oncologist/Hematologis t Hematology and Oncology 09/26/21 Usman Brito MD [address] [place] [address] Consulting Physician Rheumatology 05/22/23 documented as of this encounter
--- OUTSIDE RECORDS SUMMARY | 2024-07-18 20:27 | XMS_ITS | Encounter Summary ---
Author Organization [facility] Address [address] [facility] [address] [place] [address] Phone Care Team Providers Care Numerologist Name Role Phone Starr Bran Primary Care Provider [phone] Bibiana Schuler MD Unavailable [phone] Cornelius Garcia DO Unavailable [phone] Madhu Brito MD Unavailable [phone] Encounter Details Date Type Department Care Team (Late st Contact Info) Description 08/01/2023 8:45 AM PROVIDER RELATIONS CONSULTANT Lab [facility] Oncology [facility]8 [facility] [address] [place] [phone] Iron deficiency anemia due to chronic blood [...] on file Legal Sex Female 10:31 AM PROVIDER RELATIONS CONSULTANT Gender Identity Female 02/02/2021 7:25 AM [...] rst Ordered Date ONCBCN LAB APPOINTMENT 1 08/01/2023 documented in this encounter Care Teams Numerologist Relationship Specialty Start Date End Date Starr Bran PA [address] [place] [address] PCP - General Internal Medicine 12/30/18 Bibiana Schuler MD [address] [place] [address] Consulting Physician Gastroenterology 05/11/21 Cornelius Garcia DO [address] [place] [address] MEDICAL ONCOLOGY, [facility] [address] [place] [address] Medical Oncologist/Hematologis t Hematology and Oncology 09/26/21 Madhu Brito MD [address] [place] [address] Consulting Physician Rheumatology 05/22/23 documented as of this encounter
--- OUTSIDE RECORDS SUMMARY | 2024-07-18 20:27 | XMS_ITS | Encounter Summary ---
Author Organization [facility] Address [address] [place] [address] Phone Care Team Providers Care Video Game Engineer Name Role Phone Starr Bran Primary Care Provider [phone] Bibiana Schuler MD Unavailable [phone] Cornelius Garcia DO Unavailable [phone] Usman Brito MD Unavailable [phone] Reason for Referral * Diagnostic Imaging (Routine) - Closed Specialty Diagnoses / Procedures Referred By Contac t Referred To Contact Diagnoses Elevated rheumatoid factor Arthralgia of right hand Procedures US Hand Complete Joyce Erwin PA [address] [place] [address] Phone: tel: fax: External Order Referral ID Status Reason Start Date Expiration Date Visits Re quested Visits Authorized [id number] Closed 07/11/2023 08/09/2024 1 1 LSIOR CUTTER * Cardiology (Routine) - Closed Specialty Diagnoses / Procedures Referred By Contlaura t Referred To Contact Diagnoses Positive AMINA (antinuclear antibody) PHAN (dyspnea on exertion) Systemic sclerosis (HCC) Procedures Transthoracic Echo (TTE) Complete W Doppler/CF Joyce Erwin PA [address] [place] [address] Phone: tel: fax: External Order Referral ID Status Reason Start Date Expiration Date Visits Re quested Visits Authorized [id number] Closed 07/11/2023 08/09/2024 1 1 LSIOR CUTTER * Procedure (Routine) - Closed Specialty Diagnoses / Procedures Referred By Contlaura t Referred To Contact Diagnoses Positive AMINA (antinuclear antibody) PHAN (dyspnea on exertion) Systemic sclerosis (HCC) Procedures Pulmonary Function Test -External Joyce Erwni PA [address] [place] [address] Phone: tel: fax: Referral ID Status Reason Start Date Expiration Date Visits Re quested Visits Authorized [id number] Closed 07/11/2023 08/09/2024 1 1 LSIOR CUTTER Encounter Details Date Type Department Care Team (Late st Contact Info) Description 07/11/2023 1:00 PM EXCELSIOR CUTTER Office Visit [facility] [address] [place] [phone] Joyce Erwin PA [address] [place] [address] Systemic sclerosis (CMS/HCC) (HCC) (Primary Dx); Positive AMINA (antinuclear antibody); PHAN (dyspnea on exertion); Elevated rheumatoid factor; Arthralgia of right hand Social History Tobacco Use Types Packs/Day Years [...] on file Legal Sex Female 10:31 AM EXCELSIOR CUTTER Gender Identity Female 02/02/2021 7:25 AM CDT Sexual Orientation Straight 02/02/2021 7: 25 AM CDT documented as of this encounter Last Filed Vital Signs Vital Sign Reading Time Taken Comments Blood Pressure 144/90 07/11/2023 12:51 PM EXCELSIOR CUTTER Pulse 79 07/11/2023 12:51 PM EXCELSIOR CUTTER Temperature - - Respiratory Rate - - Oxygen Saturation 98% 07/11/2023 12: 51 PM EXCELSIOR CUTTER Inhaled Oxygen Concentration - - Weight 91.5 kg (201 lb 12.8 oz) 023 12:51 PM EXCELSIOR CUTTER Height 160 cm (5' 3 ) 07/11/2023 12:51 PM EXCELSIOR CUTTER Body Mass Index 35.75 07/11/2023 12:51 PM EXCELSIOR CUTTER documented in this encounter Ordered Prescriptions Prescription Sig Dispense Quantity Refills Last Filled Start Date End Date mycophenolate mofetil (CELLCEPT) 500 mg tablet Take 1 tablet (500 mg total) by mouth 2 (two) times a day 60 tablet 1 07/11/2023 08/08/2023 documented in this encounter Progress Notes * Joyce Erwin PA - 07/11/2023 1:00 PM CST Images from the original note were not included. Subjective/Objective Patient ID: Viktoriya Bell is a 58 y.o. female. Chief Complaint Abnormal lab C2: noticing right 5th PIP joint pain for the past 3 weeks. Has AM stiffness in this and her lower extremities that improves with activity. 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 Medication Taking/taken D/C or avoidance reason Hydroxychloroquine Methotrexate Leflunomide Azathioprine Sulfasalazine CellCept -started 06/2023 X Humira Enbrel Simponi Cimzia Simponi aria Remicade Cosentyx Taltz Orencia Stelara Tremfya Xeljanz Rinvoq Actemra Kevzara Olumiant Kineret Benlysta Rituxan Otezla NSAIDs Prednisone Review of Systems Constitutional: Negative for fatigue, fever and unexpected weight change. HENT: Negative for nosebleeds and trouble swallowing. Eyes: Negative for photophobia, pain and redness. Respiratory: Negative for cough and shortness of breath. Cardiovascular: Negative for chest pain and leg swelling. Gastrointestinal: Negative for abdominal pain. Musculoskeletal: Positive for joint pain. Skin: Negative for rash. Physical exam: Constitutional:well developed, well nourished, in no acute distress, alert and oriented X 3 Nose: normal Ears: normal external appearance Eyes: Pupils are equal. Chest:Normal chest wall and respirations. Extremities: No clubbing or cyanosis Skin: no rashes Neurologic: normal mental status, speech normal, alert and oriented x3 Musculoskeletal: See CDAI. Questionable fullness in a few MCP joints of the right hand. Generalizedsoft tissue swelling/puffiness in both hands which makes assessing for synovitis difficult. LABS: 05/18/23: Negative LAC, negative ALEXA, CRP 0.29mg/dL, ESR 6, Hep panel negative AVISE 05/18/23: +AMINA 1:2560 centromere, CENP >240, RF IgM 20, normal C3/4 04/2023: RBC 3.58, Hgb 10.5, Hct 31.7, B12 479, TIBC 303, UIBC 264, iron 39, iron sat 13 % (L), HgA1c 4.9%, lipid panel nl, CMP nl, TSH 1.70, +AMINA >1:1280 centromere 02/2023: +AMINA, dsDNA <1, DEPUTY CONTROLLER <0.2, SM <0.2, SS-A <0.2, SS-B <0.2 IMAGING: CXR 05/2023: unremarkable EGD 11/2022: Impression: - [...] Trace right pleural effusion. CXR 10/2020: unremarkable Assessment and Plan: Diagnoses and all orders for this visit: [...] with scleroderma. Will get baseline TTE and PFT.Start cellcept 500mg BID. Discussed potential side effects, including but not limited to rash, increased infections, blood count abnormalities. Follow up in 4 weeks. Sooner if needed. Seen with Dr. Brito. Orders: - Pulmonary Function Test -External; Future - Transthoracic Echo (TTE) Complete W Doppler/CF; Future Positive AMINA (antinuclear antibody) - Pulmonary Function Test -External; Future - Transthoracic Echo (TTE) Complete W Doppler/CF; Future PHAN (dyspnea on exertion) Assessment & Plan: CXR unremarkable. New diagnosis of systemic sclerosis. Will get baseline PFT and TTE due to risk for pulm artery HTN. Orders: - Pulmonary Function Test -External; Future - Transthoracic Echo (TTE) Complete W Doppler/CF; Future Elevated rheumatoid factor - US Hand Complete; Future Arthralgia of right hand Assessment & Plan: Elevated RF (20) on AVISE. Now c/o new pain in R 5th PIP along with AM stiffness in the lower extremities. Will get baseline hand US to further evaluate for any signs to suggest overlapping RA. Orders: - US Hand Complete; Future Other orders - mycophenolate mofetil (CELLCEPT) 500 mg tablet; Take 1 tablet (500 mg total) by mouth 2 (two) times a day Joyce Erwin PA-C Cosigned by Usman Brito MD at 07/11/2023 5:23 PM EXCELSIOR CUTTER LSIOR CUTTER LSIOR CUTTER documented in this encounter Miscellaneous Notes * Assessment & Plan Note - Joyce Erwin PA - 07/11/2023 1:22 PM EXCELSIOR CUTTER Associated Problem(s): Arthralgia Elevated RF (20) on AVISE. Now c/o new pain in R 5th PIP along with AM stiffness in the lower extremities. Will get baseline hand US to further evaluate for any signs to suggest overlapping RA. LSIOR CUTTER * Assessment & Plan Note - Joyce Erwin PA - 07/11/2023 1:20 PM EXCELSIOR CUTTER Associated Problem(s): Systemic sclerosis (HCC) 58-year-old female [...] with scleroderma. Will get baseline TTE and PFT.Start cellcept 500mg BID. Discussed potential side effects, including but not limited to rash, increased infections, blood count abnormalities. Follow up in 4 weeks. Sooner if needed. Seen with Dr. Brito. LSIOR CUTTER * Assessment & Plan Note - Joyce Erwin PA - 07/11/2023 1:20 PM EXCELSIOR CUTTER Associated Problem(s): PHAN (dyspnea on exertion) CXR unremarkable. New diagnosis of systemic sclerosis. Will get baseline PFT and TTE due to risk for pulm artery HTN. LSIOR CUTTER documented in this encounter Plan of Treatment Pending Results Name Type Priority Associated Diagnoses Date /Time US Hand Complete Imaging Schedule Routin e, Read Routine (OP Routine) Elevated rheumatoid factor Arthralgia of right hand 08/01/2023 2:34 PM EXCELSIOR CUTTER Scheduled Orders Name Type Priority Associated Diagnoses Orde r Schedule US Hand Complete Imaging Schedule Routin e, Read Routine (OP Routine) Elevated rheumatoid factor Arthralgia of right hand Expected: 07/11/2023, Expires: 07/11/2024 documented as of this encounter Procedures Procedure Name Priority Date/Time Associated Diagnosis Comments TRANSTHORACIC ECHO (TTE) COMPLETE W DOPPLER/CF WO CONTRAST Routine 09/05/2023 8:16 AM EXCELSIOR CUTTER Positive AMINA (antinuclear antibody) PHAN (dyspnea on exertion) Systemic sclerosis (CMS/HCC) (HCC) documented in this encounter Results * (ABNORMAL) Pulmonary Function Test - (09/05/2023 9:40 AM EXCELSIOR CUTTER) Pathologist [facility] FVC PRE 2.82 2.33 - 3.84 L 09/05/2023 9:43 AM EXCELSIOR CUTTER [facility] FEV1 PRE 2.13 1.84 - 3.00 L 09/05/2023 9:43 AM EXCELSIOR CUTTER [facility] AYS2ROD-WMD 75.46 67.54 - 89.74 % 09/05/2023 9:43 AM EXCELSIOR CUTTER [facility] GJM55-41% PRE 1.64 1.15 - 3.70 L/s 09/05/2023 9:43 AM EXCELSIOR CUTTER [facility] PEF PRE 5.65 4.44 - 7.40 L/s 09/05/2023 9:43 AM [facility] DLCOc SB 14.86(L) 16.54 - 28.00 ml/(min*mm Hg) 09/05/2023 9:43 AM [facility] DLCO/VA PRE 3.56 3.12 - 6.21 ml/(min*mm Hg*L) 09/05/2023 9:43 AM [facility] VA 4.17(L) 4.62 - 4.62 L 09/05/2023 9:43 AM [facility] TLC PRE 4.35 3.78 - 5.76 L 09/05/2023 9:43 AM [facility] VC PRE 2.85 2.07 - 3.45 L 09/05/2023 9:43 AM [facility] IC PRE 2.28(H) 1.96 - 1.96 L 09/05/2023 9:43 AM [facility] FRC PL PRE 2.07 1.82 - 3.47 L 09/05/2023 9:43 AM [facility] ERV PRE 0.56(L) 0.80 - 0.80 L 09/05/2023 9:43 AM [facility] RV PRE 1.51 1.26 - 2.42 L 09/05/2023 9:43 AM [facility] VTG 2.19 L 09/05/2023 9:43 AM [facility] RAW PRE 3.83(H) 3.06 - 3.06 cmH2O*s/L 09/05/2023 9:43 AM [facility] Anatomical Region Laterality Modality PFT 09/05/2023 9:17 AM EXCELSIOR CUTTER Impressions 09/06/2023 1:02 PM [facility] 1. ?? Normal spirometry and lung volumes 2. ?? Mild diffusion impairment Electronically signed by Landon Dhaliwal MD Pulmonary & Critical Care Narrative 09/06/2023 1:02 PM [facility] PULMONARY FUNCTION TESTS Viktoriya Bell 58 y.o. 09/06/2023 INTERPRETATION Please see [...] and carboxyhemoglobin DLCO is ??67 % predicted us Joyce SALVADOR PFT ORDERABLES Final Result * TRANSTHORACIC ECHO (TTE) COMPLETE W DOPPLER/CF WO CONTRAST (09/05/2023 8:16 AM EXCELSIOR CUTTER) Anatomical Region Laterality Modality Ultrasound 09/05/2023 8:16 AM EXCELSIOR CUTTER Narrative 09/05/2023 5:15 PM EXCELSIOR CUTTER ? Adult Echocardiogram + ----- ---+ :Name: VIKTORIYA BELL ?Study Date: 09/05/2023 ?Status: MHE ?: : ?Patient Location: [facility] C[facility]^^^MHEHeit: 63 in ?: : ?Weight: 205 lbBP: 164/86 mmHg: :: 1965 ? Gender: Female ?BSA: 2.0 m2 ?: :Reason For Study: Dyspnea on Exertion ?: :Ordering Physician: MEUTH, ? : :JOYCE ?: :Referring Physician: ? : :RONHOLM, USMAN GLADIS ?: :Performed By: Klalie ? : :Vadim, RDCS ? : + ----- ---+ Procedure A [...] LV V1 max: ? Ao mean P.0 [id number] cm/sec ? Ao V2 VTI: 27.9 cm [...] :Name: VIKTORIYA BELL Study Date: 09/05/2023 Status: [facility]: : Patient Location: [facility]^^^MHEHeight: 63 in: : Weight: 205lbBP: 164/86 mmHg: [...] cm/sec LV V1 max: Ao mean P.0 cqDz949.0 cm/sec Ao V2 VTI: 27.9 cm LV [...] Diagnosis Systemic sclerosis (HCC)- Primary Systemic sclerosis Positive AMINA (antinuclear antibody) Other and unspecified nonspecific immunological findings PHAN (dyspnea on exertion) Other dyspnea and respiratory abnormality Elevated rheumatoid factor Other and unspecified nonspecific immunological findings Arthralgia of right hand Positive AMINA (antinuclear antibody) Other and unspecified nonspecific immunological findings PHAN (dyspnea on exertion) Other dyspnea and respiratory abnormality Systemic sclerosis (HCC) Systemic sclerosis documented in this encounter Care Teams Video Game Engineer Relationship Specialty Start Date End Date Starr Bran PA [address] [place] [address] PCP - General Internal Medicine 12/30/18 Bibiana Schuler MD [address] [place] [address] Consulting Physician Gastroenterology 05/11/21 Cornelius Garcia DO [address] [place] [address] MEDICAL ONCOLOGY, [address] [place] [address] Medical Oncologist/Hematologis t Hematology and Oncology 09/26/21 Usman Brito MD [address] [place] [address] Consulting Physician Rheumatology 05/22/23 documented as of this encounter
--- OUTSIDE RECORDS SUMMARY | 2024-07-18 20:27 | XMS_ITS | Encounter Summary ---
Author Organization [facility] Address [address] [place] [address] Phone Care Team Providers Care Nib Assembler Name Role Phone Starr Bran Primary Care Provider [phone] Bibiana Schuler MD Unavailable [phone] Cornelius Garcia DO Unavailable [phone] Madhu Brito MD Unavailable Reason for Visit * Diagnostic Imaging (Routine) - Closed Specialty Diagnoses / Procedures Referred By Hung gao Referred To Contact Diagnoses Elevated rheumatoid factor Arthralgia of right hand Procedures US Hand Complete Jing Erwin PA [address] [place] [address] Phone: tel: fax: External Order Referral ID Status Reason Start Date Expiration Date Visits Re quested Visits Authorized [id number] Closed 07/11/2023 08/09/2024 1 1 Encounter Details Date Type Department Care Team (Latest Contact Info) Description 08/01/2023 1:53 PM SLASHER HAND - 08/01/2023 11:59 PM SLASHER HAND Hospital Encounter [facility] [address] [place] [address] Discharge Disposition: Discharge to home [...] on file Legal Sex Female 10:31 AM SLASHER HAND Gender Identity Female 02/02/2021 7:25 AM CDT [...] a day 60 tablet 1 07/11/2023 08/08/2023 venlafaxine XR (EFFEXOR-XR) 75 mg 24 hr [...] Date/Time Associated Diagnosis Comments SCAN - RADIOLOGY/IMAGING 08/01/2023 1:53 PM SLASHER HAND documented in this encounter Results * SCAN - RADIOLOGY/IMAGING (08/01/2023 1:53 PM SLASHER HAND) Anatomical Region Laterality Modality Ultrasound us Provider Scanning Final Result documented in this encounter Visit Diagnoses Not on filedocumented in this encounter Care Teams Nib Assembler Relationship Specialty Start Date End Date Starr Bran PA [address] [place] [address] PCP - General Internal Medicine 12/30/18 Bibiana Schuler MD [address] [place] [address] Consulting Physician Gastroenterology 05/11/21 Cornelius Garcia DO [address] [place] [address] MEDICAL ONCOLOGY, [address] [place] [address] Medical Oncologist/Hematologis t Hematology and Oncology 09/26/21 Madhu Brito MD [address] [place] [address] Consulting Physician Rheumatology 05/22/23 documented as of this encounter
--- OUTSIDE RECORDS SUMMARY | 2024-07-18 20:27 | XMS_ITS | Encounter Summary ---
Author Organization [facility] Address [address] [facility] [address] [place] [address] Phone Care Team Providers Care Ui Software Engineer Name Role Phone Starr Bran Primary Care Provider [phone] Bibiana Schuler MD Unavailable [phone] Ani Villafana DO Unavailable Madhu Brito MD Unavailable [phone] Reason for Visit * Reason Comments Follow-up Encounter Details Date Type Department Care Team ([facility] st Contact Info) Description 08/01/2023 9:15 AM HEALTH INFORMATION MANAGERS Office Visit [facility] [address] [place] [phone] Ani Villafana DO [address] [place] [id number] Iron deficiency anemia due to chronic blood [...] on file Legal Sex Female 10:31 AM HEALTH INFORMATION MANAGERS Gender Identity Female 02/02/2021 7:25 AM CDT Sexual Orientation Straight 02/02/2021 7: 25 AM CDT documented as of this encounter Last Filed Vital Signs Vital Sign Reading Time Taken Comments Blood Pressure 146/79 08/01/2023 9:09 AM HEALTH INFORMATION MANAGERS Pulse 84 08/01/2023 9:09 AM HEALTH INFORMATION MANAGERS Temperature 37 ??C (98.6 ??F) 08/01/2023 9:09 AM HEALTH INFORMATION MANAGERS Respiratory Rate 16 08/01/2023 9:09 AM HEALTH INFORMATION MANAGERS Oxygen Saturation 96% 08/01/2023 9:09 AM HEALTH INFORMATION MANAGERS Inhaled Oxygen Concentration - - Weight 92.4 kg (203 lb 12.8 oz) 08/01/2023 9:09 AM HEALTH INFORMATION MANAGERS Height 160 cm (5' 3 ) 08/01/2023 9:09 AM HEALTH INFORMATION MANAGERS Body Mass Index 36.1 08/01/2023 9:09 AM HEALTH INFORMATION MANAGERS documented in this encounter Progress Notes * Jacquelin Rivero NP - 08/01/2023 9:15 AM CST Patient ID: Viktoriya Bell is a 58 [...] visit, she will continue with oral iron supplementation. 2. She will continue to follow up with Dr. Schuler as needed. 3. For her night time hot flashes she can continue the Gabapentin 300mg in AM and 100mg in PM. 4. For her night time joint pain, she can continue try a low dose of ibuprofen or tylenol. 5. We will see her again in 6 months. 6. For her ongoing fatigue, discussed slowly initiating an exercise routine. Also discussed periodically checking her BP at home and reporting to PCP if readings are consistently >140/80. She is currently on Lisinopril and may need adjustment. Patient Active Problem List Diagnosis Essential hypertension Vitamin D deficiency Hyperglycemia Other fatigue PHAN (dyspnea on exertion) [...] to menopause Fatigue Anemia Arthralgia Restless legs BMI 36.0-36.9,adult Morbid obesity (HCC) Need for immunization against influenza Positive AMINA (antinuclear antibody) Systemic sclerosis (CMS/HCC) (HCC) Diagnoses and all orders for this visit: Iron deficiency anemia due to chronic blood loss (Primary) - CBC with auto differential; Future - Ferritin; Future - Iron profile w/ IBC; Future - Clinic Appointment Request Follow up; ANI VILLAFANA MD; Clinic Appointment Location: [facility] [place] [address]; Future - Lab Draw Appt Request Arm Draw or Central Line Draw? Arm; Ordering location: [facility] Onc/Hem/BMT; Treatment location: [facility]; Future - Clinic Appointment Request Follow up; ANI VILLAFANA; Clinic Appointment Location: [facility] 180 Subjective Interval History: A. Iron deficiency [...] iron supplementation once a day. 7. Her parks recreation director performed laparoscopic hysterectomy with bilateral salpingo oophorectomy [...] including blood in her urine or stool. Interval Notes: I have reviewed: allergies, current medications, past family history, past medical history, past social history, past surgical history and problem list HPI Review of Systems All other systems reviewed and are negative. Objective Physical Exam: Vital Signs for this encounter: BSA: 2.03 meters squared BP 146/79 (BP Location: Left arm) Pulse 84 Temp 37 ??C (98.6 ??F) (Oral) Resp 16 Ht 160 cm (5' 3 ) Wt 92.4 kg (203 lb 12.8 oz) SpO2 96% BMI 36.10 kg/m?? Physical Exam Constitutional: Appearance: Normal appearance. [...] Results: WBC Date Value Ref Range Status 08/01/2023 4.7 3.8 - 9.9 K/cumm Final Comment: Testing performed by: [address] [id number] 05/02/2023 3.8 3.4 - 10.8 x10E3/uL Final Hgb Date Value Ref Range Status 08/01/2023 12.1 11.9 - 15.5 g/dL Final Comment: Testing performed by: [address] [address] 05/02/2023 10.5 (L) 11.1 - 15.9 g/dL Final Hct Date Value Ref Range Status 08/01/2023 36.3 35.6 - 45.5 % Final Comment: Testing performed by: [address] [address] 05/02/2023 31.7 (L) 34.0 - 46.6 % Final Platelets Date Value Ref Range Status 05/02/2023 214 150 - 450 x10E3/uL Final Plt Date Value Ref Range Status 08/01/2023 219 150 - 400 K/cumm Final Comment: Testing performed by: [address] [address] Creatinine, Serum Date Value Ref Range Status 05/02/2023 0.65 0.57 - 1.00 mg/dL Final AST Date Value Ref Range Status 05/02/2023 16 0 - 40 IU/L Final Jacquelin Rivero [facility] Medical Oncology [facility] Cosigned by Ani Villafana DO at 09/09/2023 10:31 AM HEALTH INFORMATION MANAGERS TH INFORMATION MANAGERS TH INFORMATION MANAGERS TH INFORMATION MANAGERS documented in this encounter Plan of Treatment Not on file documented as of this encounter Results * Iron profile w/ IBC (02/06/2024 8:47 AM CDT) Iron 104 35 - 145 mcg/dL Comment:Testing performed by : [address] [address] TIBC 355 250 - 400 mcg/dL [facility] GARCIA Comment:Testing performed by : [address] [address] Transferrin saturation 29 20 - 50 % [facility] GARCIA Comment:Testing performed by : [address] [address] Blood 02/06/2024 8:47 AM CDT 02/06/2024 9:53 AM CDT Ani Villafana DO LAB BLOOD ORDERABLES Final R esult [facility] [address] [facility] Department [place] [address] * Ferritin (02/06/2024 8:47 AM CDT) Ferritin 23 15 - 150 ng/mL Comment:Testing performed by : [address] [address] Blood 02/06/2024 8:47 AM CDT 02/06/2024 9:53 AM CDT Ani Villafana DO LAB BLOOD ORDERABLES Final R esult [facility] [address] [facility] Department [place] [address] * (ABNORMAL) CBC with auto differential (02/06/2024 8:47 AM CDT) WBC 5.1 3.8 - 9.9 K/cumm Comment:Testing performed by : [address] [address] Hgb 11.0(L) 11.9 - 15.5 g/dL [place] Comment:Testing performed by : [address] [address] Hct 34.3(L) 35.6 - 45.5 % [facility] Comment:Testing performed by : [address] [address] Plt 138(L) 150 - 400 K/cumm [place] Comment:Testing performed by : [address] [address] MPV 11.1 9.1 - 12.3 fL [place] Comment:Testing performed by : [address] [address] RBC 4.06 3.90 - 5.20 M/cumm [place] Comment:Testing performed by : [address] [address] MCV 84.5 81.3 - 96.4 fL [place] Comment:Testing performed by : [address] [address] MCH 27.1 27.1 - 33.3 pg [place] Comment:Testing performed by : [address] [address] MCHC 32.1(L) 32.3 - 35.7 g/dL [place] Comment:Testing performed by : [facility] [address] [place] [address]., [address] RDW CV 13.1 11.1 - 14.9 % [facility] GARCIA Comment:Testing performed by : [facility], [address] [place] [address]., [address] RDW SD 39.6 35.7 - 48.1 fL [place] GARCIA Comment:Testing performed by : [facility], [address] [place] [address]., [address] NRBC abs 0.00 0.00 - 0.01 K/cumm [place] Comment:Testing performed by : [facility], [address] [place] [address]., [address] Blood 02/06/2024 8:47 AM CDT 02/06/2024 8:52 AM CDT Ani Villafana DO LAB BLOOD ORDERABLES Final R esult Performing Organization Address City/State/RUST Co de Phone Number [facility] [address] [facility] Department [place] [address] documented in this encounter Visit Diagnoses Diagnosis Iron deficiency anemia due to chronic blood loss- Primary Iron deficiency anemia secondary to blood loss (chronic) documented in this encounter Orders Appointment Requests Count Last Ordered Date Fi rst Ordered Date ONCBCN CLINIC APPOINTMENT REQUEST 2 024 08/01/2023 ONCBCN LAB APPOINTMENT 1 02/06/2024 documented in this encounter Care Teams Ui Software Engineer Relationship Specialty Start Date End Date Starr Bran PA [address] [place] [address] PCP - General Internal Medicine 12/30/18 Bibiana Schuler MD [address] [place] [address] Consulting Physician Gastroenterology 05/11/21 Ani Villafana DO [address] [facility] MEDICAL ONCOLOGY, [address] [place] [address] Medical Oncologist/Hematologis t Hematology and Oncology 09/26/21 Madhu Brito MD [address] [place] [address] Consulting Physician Rheumatology 05/22/23 documented as of this encounter
--- OUTSIDE RECORDS SUMMARY | 2024-07-18 20:28 | XMS_ITS | Encounter Summary ---
Author Organization [facility] Address [address] [place] [address] Care Team Providers Care Watershed Coordinator Name Role Phone Starr Bran Primary Care Provider [phone] Bibiana Schuler MD Unavailable [phone] Cornelius Garcia DO Unavailable [phone] Encounter Details Date Type Department Care Team (Late st Contact Info) Description 03/21/2023 Orders Only [facility] Family Medicine [address] [place] [address] Starr Bran PA [address] [place], [place] [id number] Social History Tobacco Use Types Packs/Day Years Used Date Smoking Tobacco: Never Smokeless Tobacco: Never AUDIT-C Answer Date Recorded Q1: How often do you have a drink containing alc ohol? Monthly or less 03/19/2023 Q2: How many drinks containi ng alcohol do you have on a typical day when you are drinking? 3 or 4 03/19/2023 Q3: How often do you have si x or more drinks on one occasion? Less than monthly 03/19/2023 PHQ-2 Answer Date Recorded PHQ-2 Total Score (If total score is 3 or more points, staff should administer the PHQ-9) 0 03/19/2023 Personal Safety Answer Date Recorded Have you ever been in or are you currently in a harmful physical or emotional relationship or is someone making you feel afraid or unsafe? 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 Gender Identity Female 02/02/2021 7:25 AM CDT Sexual Orientation Straight 02/02/2021 7: 25 AM CDT documented as of this encounter Progress Notes * Tuyet Kay LPN - 03/21/2023 8:07 AM CDT error documented in this encounter Plan of Treatment Not on file documented as of this encounter Visit Diagnoses Not on filedocumented in this encounter Care Teams Watershed Coordinator Relationship Specialty Start Date End Date Starr Bran PA [address] [place] [address] PCP - General Internal Medicine 12/30/18 Bibiana Schuler MD [address] [place] [address] Consulting Physician Gastroenterology 05/11/21 Cornelius Garcia DO [address] [place] [address] MEDICAL ONCOLOGY, [address] [place] [address] Medical Oncologist/Hematologis t Hematology and Oncology 09/26/21 documented as of this encounter
--- OUTSIDE RECORDS SUMMARY | 2024-07-18 20:28 | XMS_ITS | Encounter Summary ---
Author Organization [facility] Address [address] [address] Care Team Providers Care Mortgage Loan Processor Name Role Phone Starr Bran Primary Care Provider [phone] Bibiana Schuler MD Unavailable [phone] Cornelius Garcia DO Unavailable [phone] Reason for Visit * Reason Onset Date Comments Appointment Request 04/02/2023 Encounter Details Date Type Department Care Team (Late st Contact Info) Description 04/02/2023 Telephone [facility] Family Medicine [address] [facility] [address] [place] [address] Starr Bran PA [address] [place] [address] Appointment Request Social History Tobacco Use Types Packs/Day Years [...] on file 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 Pt stated that her son tested positive for covid yesterday, 04/01/23 and she tested positive today on 04/02/23. Pt states the only symptom that she has is sore throat and fatigue. Went over OTC treatment for sore throat and other possible symptoms that may arise. Also reviewed isolation period. Informed pt if symptoms worsen that she can contact office and can be scheduled for a telehealth. Pt voiced understanding. Will pend this to check on patient on . * Telephone Encounter - HoldenOctober - 04/02/2023 10:09 AM CDT Appointment Request What visit type does the patient need? Visit Type: Established Patient What is the reason for the visit? sore throat , some coughing (son tested positive for covid-19) What is the reason we were unable to schedule the appointment? Current appointment availability didnot meet patient's need. If applicable, were all members of the patient's PCP care team offered (e.g., nurse practioner(s), physician assistant associate professor(s)) ? N/A Caller's Callback #: [phone] Additional Comments: n/a Does message need to be routed? Yes-Action Needed documented in this encounter Plan of Treatment Not on file documented as of this encounter Visit Diagnoses Not on filedocumented in this encounter Care Teams Mortgage Loan Processor Relationship Specialty Start Date End Date Starr Bran PA [address] [place], [place] [id number] PCP - General Internal Medicine 12/30/18 Bibiana Schuler MD [address] [place], [place] [id number] Consulting Physician Gastroenterology 05/11/21 Cornelius Garcia DO [facility] MEDICAL ONCOLOGY, [facility] [address] [place] [address] Medical Oncologist/Hematologis t Hematology and Oncology 09/26/21 documented as of this encounter
--- OUTSIDE RECORDS SUMMARY | 2024-07-18 20:28 | XMS_ITS | Encounter Summary ---
Author Organization [facility] Address [address] [place] [address] Care Team Providers Care Net Development Manager Name Role Phone Starr Bran Primary Care Provider [phone] Bibiana Schuler MD Unavailable [phone] Cornelius Garcia DO Unavailable [phone] Encounter Details Date Type Department Care Team (Late st Contact Info) Description 04/25/2023 Orders Only [facility] Family Medicine 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 Gender Identity Female 02/02/2021 7:25 AM CDT Sexual Orientation Straight 02/02/2021 7: 25 AM CDT documented as of this encounter Progress Notes * Tuyet Kay LPN - 04/25/2023 4:13 PM CDT Labs placed for upcoming appt documented in this encounter Plan of Treatment Not on file documented as of this encounter Procedures Procedure Name Priority Date/Time Associated Diagnosis Comments IRON PROFILE W/ IBC Routine 05/02/2023 8 :42 AM CDT Iron deficiency anemia due to chronic blood loss Annual physical exam CBC WITH AUTO DIFFERENTIAL Routine 05/02/2023 8:42 AM CDT Anemia, unspecified type Iron deficiency anemia due to chronic blood loss Fatigue, unspecified type Annual physical exam TSH Routine 05/02/2023 8:42 AM CDT Anemia, unspecified type Fatigue, unspecified type Annual physical exam HEMOGLOBIN A1C Routine 05/02/2023 8:42 AM CDT Hyperglycemia Annual physical exam VITAMIN B12 Routine 05/02/2023 8:42 AM CDT Low vitamin B12 level Annual physical exam LIPID PANEL Routine 05/02/2023 8:42 AM CDT Annual physical exam Screening for hyperlipidemia COMPREHENSIVE METABOLIC PANEL Routine 05/02/2023 8:42 AM CDT Essential hypertension Annual physical exam documented in this encounter Results * TSH (05/02/2023 8:42 AM CDT) TSH 1.700 0.450 - 4.500 uIU/mL [facility] - 01 Blood 05/02/2023 8:42 AM CDT 05/02/2023 Narrative [facility] - 05/03/2023 7:37 AM CDT Performed at: ??01 - [facility] [address] ??[id number] Assembler Small Products: Parveen Lofton PhD, Phone: ??[phone] us Starr SALVADOR LAB BLOOD ORDERABLES Final Result [facility] - 01 * Comprehensive metabolic panel (05/02/2023 8:42 AM CDT) Glucose 91 70 - 99 mg/dL [facility] - 01 BUN 9 6 - 24 mg/dL [facility] - 01 Creatinine, Serum 0.65 0.57 - 1.00 mg/dL [facility] - 01 eGFR 101 >59 mL/min/1.73 [facility] - 01 BUN/creat ratio 14 9 - 23 [facility] - 01 Sodium 143 134 - 144 mmol/L [facility] - 01 Potassium, sr 4.0 3.5 - 5.2 mmol/L [facility] - 01 Chloride 106 96 - 106 mmol/L [facility] - 01 CO2 23 20 - 29 mmol/L [facility] - 01 Calcium 9.2 8.7 - 10.2 mg/dL [facility] - 01 Protein, sr 6.2 6.0 - 8.5 g/dL [facility] - 01 Albumin 4.1 3.8 - 4.9 g/dL [facility] - 01 Globulin, Total 2.1 1.5 - 4.5 g/dL [facility] - 01 A/G Ratio 2.0 1.2 - 2.2 [facility] - 01 Bilirubin, Total 0.3 0.0 - 1.2 mg/dL [facility] - 01 Alk phos 71 44 - 121 IU/L [facility] - 01 AST 16 0 - 40 IU/L [facility] - 01 ALT 14 0 - 32 IU/L [facility] - 01 Blood 05/02/2023 8:42 AM CDT 05/02/2023 Narrative [facility] - 05/03/2023 7:37 AM CDT Performed at: ??01 - [facility] ??[id number] Assembler [employer]: Parveen Lofton PhD, Phone: ??[phone] Starr SALVADOR LAB BLOOD ORDERABLES Final Result Performing Organization Address [facility] de Phone Number [facility] - 01 * Lipid panel (05/02/2023 8:42 AM CDT) Cholesterol 173 100 - 199 mg/dL [facility] - 01 Triglycerides 134 0 - 149 mg/dL [facility] - 01 HDL Cholesterol 52 >39 mg/dL [facility] - 01 VLDL 24 5 - 40 mg/dL [facility] - 01 LDL, calculated 97 0 - 99 mg/dL [facility] - 01 Blood 05/02/2023 8:42 AM CDT 05/02/2023 Narrative [facility] - 05/03/2023 7:37 AM CDT Performed at: ??01 - [facility] ??[id number] Assembler [employer]: Parveen Lofton PhD, Phone: ??[phone] Starr SALVADOR LAB BLOOD ORDERABLES Final Result Performing Organization Address [facility] de Phone Number [facility] - 01 * Hemoglobin A1c (05/02/2023 8:42 AM CDT) Hgb A1C 4.9 4.8 - 5.6 % [facility] - 01 Comment: ? Prediabetes: 5.7 - 6.4 ? Diabetes: >6.4 ? Glycemic control for adults with diabetes: <7.0 Blood 05/02/2023 8:42 AM CDT 05/02/2023 Narrative [facility] - 05/03/2023 7:37 AM CDT Performed at: ??01 - [facility] ??[id number] Assembler [employer] Products: Parveen Lofton PhD, Phone: ??[phone] Strar SALVADOR LAB BLOOD ORDERABLES Final Result Performing Organization Address [facility]/ZIP Co de Phone Number [facility] - * (ABNORMAL) Iron profile w/ IBC (05/02/2023 8:42 AM CDT) Iron Bind.Cap.(TIBC) 303 250 - 450 ug/dL [facility] - 01 UIBC 264 131 - 425 ug/dL [facility] - 01 Iron 39 27 - 159 ug/dL [facility] - 01 Iron saturation 13(L) 15 - 55 % [facility] - 01 Blood 05/02/2023 8:42 AM CDT 05/02/2023 Narrative [facility] - 05/03/2023 7:37 AM CDT Performed at: ??01 - [facility] ??[id number] Assembler [employer]: Parveen Lofton PhD, Phone: ??[phone] Starr SALVADOR LAB BLOOD ORDERABLES Final Result Performing Organization Address [facility] Co de Phone Number [facility] - * Vitamin B12 (05/02/2023 8:42 AM CDT) Vitamin B12 479 232 - 1,245 pg/mL [facility] - 01 Blood 05/02/2023 8:42 AM CDT 05/02/2023 Narrative [facility] - 05/03/2023 7:37 AM CDT Performed at: ??01 - [facility] ??[id number] Assembler [employer]: Parveen Lofton PhD, Phone: ??[phone] Starr SALVADOR LAB BLOOD ORDERABLES Final Result [facility] - 01 * (ABNORMAL) CBC with auto differential (05/02/2023 8:42 AM CDT) WBC 3.8 3.4 - 10.8 x10E3/uL [facility] - 01 RBC 3.58(L) 3.77 - 5.28 x10E6/uL [facility] - 01 Hgb 10.5(L) 11.1 - 15.9 g/dL [facility] - 01 Hct 31.7(L) 34.0 - 46.6 % [facility] - 01 MCV 89 79 - 97 fL [facility] - 01 MCH 29.3 26.6 - 33.0 pg [facility] - 01 MCHC 33.1 31.5 - 35.7 g/dL [facility] - 01 Rdw 13.2 11.7 - 15.4 % [facility] - 01 Platelets 214 150 - 450 x10E3/uL [facility] - 01 Neutrophils pct 71 Not Estab. % [facility] - 01 Lymphs pct 20 Not Estab. % [facility] - 01 Monocytes pct 9 Not Estab. % [facility] - 01 Eosinophils pct 0 Not Estab. % [facility] - 01 Basophil pct 0 Not Estab. % [facility] - 01 Neutrophil abs 2.7 1.4 - 7.0 x10E3/uL [facility] - 01 Lymphs (Absolute) 0.8 0.7 - 3.1 x10E3/uL [facility] - 01 Monocyte abs 0.3 0.1 - 0.9 x10E3/uL [facility] - 01 Eosinophils, abs 0.0 0.0 - 0.4 x10E3/uL [facility] - 01 Basophils, abs 0.0 0.0 - 0.2 x10E3/uL [facility] - 01 Immature Granulocytes 0 Not Estab. % [facility] - 01 Immature Grans (Abs) 0.0 0.0 - 0.1 x10E3/uL [facility] - 01 Blood 05/02/2023 8:42 AM CDT 05/02/2023 Narrative [facility] - 05/03/2023 7:37 AM CDT Performed at: ??01 - [facility] [address] ??[id number] Assembler [employer] Products: Parveen Lofton PhD, Phone: ??[phone] Starr SALVADOR LAB BLOOD ORDERABLES Final Result [facility] - 01 documented in this encounter Visit Diagnoses Diagnosis Essential hypertension- Primary Unspecified essential hypertension Hyperglycemia Other abnormal glucose Low vitamin B12 level Vitamin D deficiency Anemia, unspecified type Iron deficiency anemia due to chronic blood loss Iron deficiency anemia secondary to blood loss (chronic) Fatigue, unspecified type Annual physical exam Routine general medical examination at a health care facility Screening for hyperlipidemia Screening for lipoid disorders documented in this encounter Care Teams Net Development Manager Relationship Specialty Start Date End Date Starr Bran PA [address] [place] [address] PCP - General Internal Medicine 12/30/18 Bibiana Schuler MD [address] [place] [address] Consulting Physician Gastroenterology 05/11/21 Cornelius Garcia DO [address] [place] [address] MEDICAL ONCOLOGY, [facility] [address] [place] [address] Medical Oncologist/Hematologis t Hematology and Oncology 09/26/21 documented as of this encounter
--- OUTSIDE RECORDS SUMMARY | 2024-07-18 20:28 | XMS_ITS | Encounter Summary ---
Author Organization [facility] Address [address] [place] [address] Care Team Providers Care Braddisher Name Role Phone Starr Bran Primary Care Provider [phone] Bibiana Schuler MD Unavailable [phone] Cornelius Garcia DO Unavailable [phone] Reason for Visit * Reason Comments Chronic concerns Pt presents today fo r a nurse visit for a B12 injection. Injection was administered in pt Left Deltoid, without incident. Encounter Details Date Type Department Care Team (Late st Contact Info) Description 04/15/2023 10:00 AM CDT Clinical Support 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
--- OUTSIDE RECORDS SUMMARY | 2024-07-18 20:28 | XMS_ITS | Encounter Summary ---
Author Organization [facility] Address [address] [place] [address] Care Team Providers Care Legal Administrative Assistant Name Role Phone Starr Bran Primary Care Provider [phone] Bibiana Schuler MD Unavailable [phone] Cornelius Garcia DO Unavailable [phone] Reason for Visit * Reason Comments chronic concerns Pt presents today fo r B12 injection without concerns. 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 Gender Identity Female 02/02/2021 7:25 AM CDT Sexual Orientation Straight 02/02/2021 7: 25 AM CDT documented as of this encounter Last Filed Vital Signs Vital Sign Reading Time Taken Comments Blood Pressure 118/78 03/19/2023 9:24 AM CDT Pulse 78 03/19/2023 9:24 AM CDT Temperature 37 ??C (98.6 ??F) 03/19/2023 9:24 AM CDT Respiratory Rate - - Oxygen Saturation 96% 03/19/2023 9:24 AM CDT Inhaled Oxygen Concentration - - Weight 91.3 kg (201 lb 4.8 oz) 03/19/2023 9:24 A M CDT Height 157.5 cm (5' 2.01 ) 03/19/2023 9:24 AM CD T Body Mass Index 36.81 03/19/2023 9:24 AM CDT documented in this encounter Ordered Prescriptions Prescription Sig Dispense Quantity Refills Last Filled Start Date End Date gabapentin (NEURONTIN) 100 mg capsuleIndications: Vasomotor symptoms due to menopause Take one po QAM (100 mg) and take three tabs po QPM (300mg) 90 capsule 1 03/19/2023 04/02/2023 documented in this encounter Progress Notes * Starr Bran PA - 03/19/2023 9:30 AM CDT Images from the original note were not included. Subjective/Objective Patient ID: Viktoriya Bell is a 58 y.o. female. Chief Complaint chronic concerns (Pt presents today for B12 injection without concerns.) HPI Patient presents to followup chronic concerns. Due for B12 monthly injection -- History vasomotor sxs. Has been on Effexor 225mg hs. Feels like it has helped. Noting more pain hs in the legs which is waking her up. Has to move her legs or get up for relief. Started Gabapentin 100mg AM and 200hs. Can tell improvement but still some leg movement. Willing to increase dose. Side effects are tolerate. Review of Systems See HPI Vitals: 03/19/23 0924 BP: 118/78 BP Location: Left arm Patient Position: Sitting Pulse: 78 Temp: 37 ??C (98.6 ??F) TempSrc: Oral SpO2: 96% Weight: 91.3 kg (201 lb 4.8 oz) Height: 157.5 cm (5' 2.01 ) [...] Diagnoses and all orders for this visit: Vasomotor symptoms due to menopause (N95.1) (Primary) Assessment & Plan: Continue Effexor 225 Orders: - gabapentin (NEURONTIN) 100 mg capsule; Take one po QAM (100 mg) and take three tabs po QPM (300mg) Restless legs (G25.81) Assessment & Plan: Tolerating a gabapentin with some improvement. Continue 100 mg in the a.m. increase to 300 mg HS. Kit it monitor closely Arthralgia, unspecified joint (M25.50) Assessment & Plan: Check AMINA Orders: - Antinuclear Antibodies, IFA; Future BMI 36.0-36.9,adult (Z68.36) Assessment & Plan: Discussed [...] between 35.00-39.99. *This note is dictated using Preact voice recognition software, variances in spelling and vocabulary are possible and unintentional.* Starr Bran PA-C documented in this encounter Miscellaneous Notes * Assessment & Plan Note - Starr Bran PA - 03/31/2023 10:44 PM CDT Associated Problem(s): Arthralgia Check AMINA * Assessment & Plan Note - Starr Bran PA - 03/31/2023 10:44 PM CDT Associated Problem(s): Vasomotor symptoms due to menopause Continue Effexor 225 * Assessment & Plan Note - Starr Bran PA - 03/31/2023 10:44 PM CDT Associated Problem(s): Restless legs Tolerating a gabapentin with some improvement. Continue 100 mg in the a.m. increase to 300 mg HS. Kit it monitor closely * Assessment & Plan Note - Chana Burr MA - 03/19/2023 9:28 AM CDTAssociated Problem(s): Morbid obesity (HCC) (Resolved 05/09/2023) Discussed the patient's BMI. The BMI is above average. BMI management plan is completed. BMI Follow-up includes: nutrition counseling, exercise counseling and education provided. Patient has an obesity-related condition (not limited to: hypertension, obstructive sleep apnea, osteoarthritis, hyperlipidemia, diabetes, etc.). Therefore, morbid obesity may be documented for patients with a BMI between 35.00-39.99. * Assessment & Plan Note - Chana Burr MA - 03/19/2023 9:28 AM CDTAssociated Problem(s): BMI 36.0-36.9,adult (Resolved 05/09/2023) Discussed the patient's BMI. The BMI is above average. BMI management plan is completed. BMI Follow-up includes: nutrition counseling, exercise counseling and education provided. documented in this encounter Plan of Treatment Not on file documented as of this encounter Procedures Procedure Name Priority Date/Time Associated Diagnosis Comments KIMBERLY STAINING PATTERNS Routine 05/02/2023 8:43 AM CDT ANTINUCLEAR ANTIBODIES, IFA Routine 05/02/2023 8:43 AM CDT Arthralgia, unspecified joint documented in this encounter Results * (ABNORMAL) KIMBERLY Staining Patterns (05/02/2023 8:43 AM CDT) Centromere Pattern >1:1280(A) [facility] - 01 Comment:ICAP nomenclature: A C-3 Note: Comment [facility] - 01 Comment: Pattern ?Potential Disease Association ?? Homogeneous ?Systemic Lupus Erythematosus, Drug Induced ? Systemic Lupus Erythematosus, Chronic ? Autoimmune hepatitis, Juvenile Idiopathic ? Arthritis ?? Speckled ? Sjogren Syndrome, Systemic Lupus ? Erythematosus, Subacute Cutaneous Lupus, ? Lupus, Congenital Heart Block, ? Mixed Connective Tissue Disease, ? Scleroderma-diffuse, Scleroderma-Autoimmune ? Myositis Overlap Syndrome, Systemic Lupus ? Qbsgeaovrauct-Gulbkqtgdqc-Djytiehdmb ? Myositis Overlap Syndrome, Systemic ? Autoimmune Rheumatic Disease, ? Undifferentiated Connective Tissue Disease ?? Nucleolar ?Systemic Sclerosis, Scleroderma-Autoimmune ? Myositis Overlap Syndrome, Sjogren ? Syndrome, Raynaud phenomenon, Pulmonary ? Arterial Hypertension, Systemic Autoimmune ? Rheumatic Disease, Cancer ?? Centromere ? Scleroderma-CREST, Limited Cutaneous SSc, ? Raynaud's Phenomenon, Primary Biliary ? Cholangitis ?? Nuclear Dot ?Primary Biliary Cholangitis ?? Nuclear ?Primary Biliary Cholangitis, Autoimmune Membrane ? Hepatitis/Liver disease, Systemic Autoimmune ? Rheumatic Disease, Autoimmune Cytopenias, ? Linear Scleroderma, Antiphospholipid Syndrome ?? 05/02/2023 8:43 AM CDT 05/02/2023 Narrative [facility] - 05/03/2023 4:12 PM CDT Performed at: ??01 - [facility] [address], [place], [place] ??[id number] Case Liner: Parveen Lofton PhD, Phone: ??[phone] us Starr SALVADOR LAB BLOOD ORDERABLES Final Result [facility] - 01 * (ABNORMAL) Antinuclear Antibodies, IFA (05/02/2023 8:43 AM CDT) AMINA, qual Positive(A ) [facility] - 01 Comment: ? Negative ?? <1:80 ? Borderline ??1:80 ? Positive ?? >1:80 Blood spot 05/02/2023 8:43 AM CDT 05/02/2023 Narrative [facility] - 05/03/2023 4:12 PM CDT Performed at: ??01 - [facility], [place], [place] ??[id number] Case Liner: Parveen Lofton PhD, Phone: ??[phone] us Starr SALVADOR LAB BLOOD ORDERABLES Final Result [facility] - 01 documented in this encounter Visit Diagnoses Diagnosis Vasomotor symptoms due to menopause- Primary Restless legs Restless legs syndrome (RLS) Arthralgia, unspecified joint BMI 36.0-36.9,adult Morbid obesity (HCC) Morbid obesity documented in this encounter Administered Medications Active [...] Ri ght Deltoid documented in this encounter Discontinued Medications Medication Sig Discontinue Reason Start Date End Da te gabapentin (NEURONTIN) 100 mg capsuleIndications:Vasomo tor symptoms due to menopause Take one po QAM (100 mg) and take two po QPM (200 mg total). Reorder 02/05/2023 03/19/2023 documented as of this encounter Care Teams Legal Administrative Assistant Relationship Specialty Start Date End Date Starr Bran PA [address] [place], [place] [id number] PCP - General Internal Medicine 12/30/18 Bibiana Schuler MD [address] [place], [place] [id number] Consulting Physician Gastroenterology 05/11/21 Cornelius Garcia DO [address] [place] [address] MEDICAL ONCOLOGY, [facility] [address] [place] [address] Medical Oncologist/Hematologis t Hematology and Oncology 09/26/21 documented as of this encounter
--- OUTSIDE RECORDS SUMMARY | 2024-07-18 20:28 | XMS_ITS | Encounter Summary ---
Author Organization [facility] Medical [facility] Address [address] [facility] [address] [place] [address] Care Team Providers Care Synthetic Resin Operator Name Role Phone Starr Bran Primary Care Provider [phone] Bibiana Schuler MD Unavailable [phone] Cornelius Garcia DO Unavailable [phone] Reason for Referral * Diagnostic Imaging (Routine) - Closed Specialty Diagnoses / Procedures Referred By Contac t Referred To Contact Diagnoses Breast cancer screening by mammogram Procedures Screening Mammogram Bilateral W Stuart Starr Bran PA [address] [address] Phone: tel: fax: External Order Referral ID Status Reason Start Date Expiration Date Visits Re quested Visits Authorized [id number] Closed 02/05/2023 03/06/2024 1 1 Reason for Visit * Reason Comments chronic concerns Pt presents today fo r wellness visit, with concerns re: perimenopause. Sxs hot flashes, night sweats, joint pain & leg pain. Encounter Details Date Type Department Care Team (Late st Contact Info) Description 02/05/2023 9:30 AM CDT Office Visit [facility] Medical [facility] Family Medicine [address] [facility] [address] [place] [phone] Starr Bran PA [address] [place] [address] Annual physical exam (Primary Dx); Iron deficiency anemia due to chronic blood loss; Anemia, unspecified type; Vasomotor symptoms due to menopause; Low vitamin B12 level; Vitamin D deficiency; Fatigue, unspecified type; Arthralgia, unspecified joint; Essential hypertension; Breast cancer screening by mammogram; H/O total hysterectomy with bilateral salpingo-oophorectomy (BSO); BMI 36.0-36.9,adult; Morbid obesity (HCC) Social History [...] on file 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 Gender Identity Female 02/02/2021 7:25 AM CDT Sexual Orientation Straight 02/02/2021 7: 25 AM CDT documented as of this encounter Last Filed Vital Signs Vital Sign Reading Time Taken Comments Blood Pressure 126/86 02/05/2023 9:30 AM CDT Pulse 82 02/05/2023 9:30 AM CDT Temperature 36.7 ??C (98 ??F) 02/05/2023 9:30 AM CDT Respiratory Rate - - Oxygen Saturation 98% 02/05/2023 9:30 AM CDT Inhaled Oxygen Concentration - - Weight 91.3 kg (201 lb 3.2 oz) 02/05/2023 9:30 A M CDT Height 157.5 cm (5' 2.01 ) 02/05/2023 9:30 AM CD T Body Mass Index 36.79 02/05/2023 9:30 AM CDT documented in this encounter Ordered Prescriptions Prescription Sig Dispense Quantity Refills Last Filled Start Date End Date gabapentin (NEURONTIN) 100 mg capsuleIndications: Vasomotor symptoms due to menopause Take one po QAM (100 mg) and take two po QPM (200 mg total). 90 capsule 1 02/05/2023 03/19/2023 documented in this encounter Progress Notes * Mariposa Farrell - 02/05/2023 9:30 AM CDT Images from the original note were not included. Subjective/Objective Patient ID: Viktoriya Bell is a 57 y.o. female. Chief Complaint chronic concerns (Pt presents today for wellness visit, with concerns re: perimenopause. Sxs hot flashes, night sweats, joint pain & leg pain. 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 No headaches Anemia Iron deficiency anemia has since resolved Patient saw Tierra Skelton on 01/31/2023 - levels are stable Dr Garcia - 3 iron infusions done in mid may Continue with iron supplement - FeSo4 bid and vitamin C Dr. Schuler - EGD with ablation completed on 12/07/2022 shows normal esophagus and duodenum. 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 Colonoscopy was normal and capsule follow through was negative Started on Prilosec - taking first thing in AM Stopped Sulcrafate. Has Liver US ordered as cirrhosis can be underlying reason for gastric antral vascular ectasia -- insurance denied it GI PA saw scans from hospital in 2020 and liver looked okay Vasomotor sxs- Effexor 225mg daily increased in November and saw improvement but now feels like sxs are returning. Hot flashes have been out of control - profusely sweating at least twice a day for the last few months Night sweats every night - wakes up soaked Notes pain at night in the legs which wakes her up at night -- moving her legs decreases the discomfort Status post HYST 07/2021 -- No bleeding or problems since. 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 Constitutional: Appearance: Normal appearance. She is well-developed. She is obese. HENT: Head: Normocephalic and atraumatic. Eyes: Comments: [...] and Affect: Mood normal. Behavior: Behavior normal. Lab Results Component Value Date WBC 4.4 01/31/2023 HGB 12.6 01/31/2023 HCT 37.0 01/31/2023 MCV 82.4 01/31/2023 LABPLAT 200 01/31/2023 Lab Results Component Value Date IRON 54 01/31/2023 TIBC 310 01/31/2023 FERRITIN 31 01/31/2023 Lab Results Component Value Date FERRITIN 31 01/31/2023 Lab Results Component Value Date HGBA1C 4.9 05/22/2022 Assessment/Plan Diagnoses and all orders for this visit: Annual physical exam (Z00.00) (Primary) Assessment & Plan: Encouraged healthy lifestyle, good nutrition and exercise. Encouraged Calcium and Vitamin D and weight bearing exercise for bone health. Reviewed immunizations Reviewed age appropirate screenings. Iron deficiency anemia due to chronic blood loss (D50.0) Assessment & Plan: Patient's iron deficiency anemia appears to be resolved/well managed. Continues to follow with Dr. Garcia's office. Will continue iron supplement. Also follows with Dr. Schuler for other underlying causes of iron deficiency anemia. They completed EGDwith ablation on 12/07/2022 Anemia, unspecified type (D64.9) Assessment & Plan: Patient's iron deficiency anemia appears to be resolved/well managed. Continues to follow with Dr. Garcia's office. Will continue iron supplement. Also follows with Dr. Schuler for other underlying causes of iron deficiency anemia. They completed EGDwith ablation on 12/07/2022 Vasomotor symptoms due to menopause (N95.1) Assessment & Plan: This is a significant, separately identifiable problem [...] legs at night. Continue Effexor 225 mg. Orders: - gabapentin (NEURONTIN) 100 mg capsule; Take one po QAM (100 mg) and take two po QPM (200 mg total). 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 Continue with B12 injections monthly Orders: - Vitamin B12; Future Vitamin D deficiency (E55.9) Assessment & Plan: Continue with daily supplementation Orders: - Vitamin D 25 hydroxy; Future Fatigue, unspecified type (R53.83) Assessment & Plan: Fatigue is likely multifactorial. We will evaluate labs for any underlying abnormalities that the fatigue may be attributed to. We discussed the possibility of sleep apnea as well as the necessary workup and treatment. Patient decided that she does not wish to undergo evaluation at this time but rather work on improving her other complaints at this time. Orders: - TSH; Future - Magnesium; Future - Comprehensive metabolic panel; Future Arthralgia, unspecified joint (M25.50) Assessment & Plan: Patient complaining of bilateral leg pain during sleep. AMINA will be checks to further investigate autoimmune processes. Orders: - AMINA reflex to quantitative; Future Essential hypertension (I10) Assessment & Plan: Blood pressure appears stable on current medication regime. Advised to decrease salt intake. Educated patient on the importance of a healthy lifestyle with diet and exercise on the management of hypertension. Continue medications as prescribed and monitor blood pressure at home as needed. Breast cancer screening by mammogram (Z12.31) - Screening Mammogram Bilateral W Stuart; Future H/O total hysterectomy with bilateral salpingo-oophorectomy (BSO) (Z90.710, Z90.722, Z90.79) Assessment & Plan: 07/2021 Dr. Gentry OSEGUERA with BSO Discussed that patient no longer needs PAP BMI 36.0-36.9,adult (Z68.36) Assessment & Plan: Discussed [...] education provided. *This note is dictated using [employer] medical voice recognition software, variances in spelling and vocabulary are possible and unintentional.* Mariposa AVILES [facility] PA Student Patient was seen in conjunction with Physician Filler Machine Operator Student STEFAN Maldonado from [facility] PA Program under the direct supervision of Starr Bran PA-C. I was present during the entire exam. I saw the patient and examined the patient and agree with the above plan/docume ntation. Starr Bran PA-C documented in this encounter Miscellaneous Notes * Result Encounter Note - Starr Bran PA - 05/23/2023 4:21 PM CDT Let pt know her mammogram is normal and will plan to repeat in 1 year. * Assessment & Plan Note - Starr Bran PA - 02/05/2023 3:20 PM CDT Associated Problem(s): Annual physical exam (Resolved 05/18/2023) Encouraged healthy lifestyle, good nutrition and exercise. Encouraged Calcium and Vitamin D and weight bearing exercise for bone health. Reviewed immunizations Reviewed age appropirate screenings. * Assessment & Plan Note - Mariposa Farrell - 02/05/2023 1:51 PM CDTAssociated Problem(s): Arthralgia Patient complaining of bilateral leg pain during sleep. AMINA will be checks to further investigate autoimmune processes. * Assessment & Plan Note - Mariposa Farrell - 02/05/2023 1:50 PM CDTAssociated Problem(s): Vitamin D deficiency Continue with daily supplementation * Assessment & Plan Note - Mariposa Farrell - 02/05/2023 1:49 PM CDTAssociated Problem(s): Vasomotor symptoms due to menopause This is a significant, separately identifiable problem [...] legs at night. Continue Effexor 225 mg. 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 Continue with B12 injections monthly * Assessment & Plan Note - Mariposa Farrell - 02/05/2023 1:44 PM CDTAssociated Problem(s): Iron deficiency anemia due to chronic blood loss Patient's iron deficiency anemia appears to be resolved/well managed. Continues to follow with Dr. Garcia's office. Will continue iron supplement. Also follows with Dr. Schuler for other underlying causes of iron deficiency anemia. They completed EGDwith ablation on 12/07/2022 * Assessment & Plan Note - Mariposa Farrell - 02/05/2023 1:43 PM CDTAssociated Problem(s): H/O total hysterectomy with bilateral salpingo-oophorectomy (BSO) 07/2021 Dr. Gentry OSEGUERA with BSO Discussed that patient no longer needs PAP * Assessment & Plan Note - Mariposa Farrell - 02/05/2023 1:43 PM CDTAssociated Problem(s): Fatigue Fatigue is likely multifactorial. We will evaluate labs for any underlying abnormalities that the fatigue may be attributed to. We discussed the possibility of sleep apnea as well as the necessary workup and treatment. Patient decided that she does not wish to undergo evaluation at this time but rather work on improving her other complaints at this time. * Assessment & Plan Note - Mariposa Farrell - 02/05/2023 1:43 PM CDTAssociated Problem(s): Essential hypertension Blood pressure appears stable on current medication regime. Advised to decrease salt intake. Educated patient on the importance of a healthy lifestyle with diet and exercise on the management of hypertension. Continue medications as prescribed and monitor blood pressure at home as needed. * Assessment & Plan Note - Mariposa Farrell - 02/05/2023 1:42 PM CDTAssociated Problem(s): Anemia Patient's iron deficiency anemia appears to be resolved/well managed. Continues to follow with Dr. Garcia's office. Will continue iron supplement. Also follows with Dr. Schuler for other underlying causes of iron deficiency anemia. They completed EGDwith ablation on 12/07/2022 * Assessment & Plan Note - Chana Burr MA - 02/05/2023 9:36 AM CDTAssociated Problem(s): Morbid obesity (HCC) (Resolved 03/19/2023) Discussed the patient's BMI. The BMI is above average. BMI management plan is completed. BMI Follow-up includes: nutrition counseling, exercise counseling and education provided. * Assessment & Plan Note - Chana Burr MA - 02/05/2023 9:36 AM CDTAssociated Problem(s): BMI 36.0-36.9,adult (Resolved 03/19/2023) Discussed the patient's BMI. The BMI is above average. BMI management plan is completed. BMI Follow-up includes: nutrition counseling, exercise counseling and education provided. documented in this encounter Plan of Treatment Scheduled Orders Name Type Priority Associated Diagnoses Orde r Schedule AMINA reflex to quantitative Lab Routine Arthralgia, unspecified joint Expected: 02/05/2023, Expires: 02/06/2024 documented as of this encounter Procedures Procedure Name Priority Date/Time Associated Diagnosis Comments AMINA QUALITATIVE WITH REFLEX TO AMINA QUANTITATIVE Routine 03/12/2023 7:57 AM CDT GERONIMO+DNA/DS+SJOGREN'S Routine 03/12/2023 7:57 AM CDT VITAMIN D 25 HYDROXY Routine 03/12/2023 7:57 AM CDT Vitamin D deficiency TSH Routine 03/12/2023 7:57 AM CDT Fatigue, unspecified type MAGNESIUM Routine 03/12/2023 7:57 AM CDT Fatigue, unspecified type VITAMIN B12 Routine 03/12/2023 7:57 AM CDT Low vitamin B12 level COMPREHENSIVE METABOLIC PANEL Routine 03/12/2023 7:57 AM CDT Fatigue, unspecified type documented in this encounter Results * GERONIMO+DNA/DS+Sjogren's (03/12/2023 7:57 AM CDT) Anti-DNA (DS) Ab Qn <1 0 - 9 IU/mL [facility] - 01 Comment: ? Negative ?<5 ? Equivocal ??5 - 9 ? Positive ?>9 THREADING MACHINE SETTER Antibodies <0.2 0.0 - 0.9 AI [facility] - 01 Smart Antibodies <0.2 0.0 - 0.9 AI [facility] - 01 Sjogren's Anti-SS-A <0.2 0.0 - 0.9 AI [facility] - 01 Sjogren's Anti-SS-B <0.2 0.0 - 0.9 AI [facility] - 01 See below: Comment [facility] - 01 Comment: Autoantibody ? Disease Association ?Condition ?Frequency ? --------- Antinuclear Antibody, ?SLE, mixed connective Direct (AMINA-D) ? tissue diseases ? --------- dsDNA ?SLE ?40 - 60% ? --------- Chromatin ?Drug induced SLE ?90% ? SLE ?48 - 97% ? --------- SSA (Ro) ? SLE ?25 - 35% ? Sjogren's Syndrome ? 40 - 70% ? Lupus ? 100% ? --------- SSB (La) ? SLE ? 10% ? Sjogren's Syndrome ?30% ?--------- Sm (anti-Smart) ?SLE ?15 - 30% ?--------- THREADING MACHINE SETTER ?Mixed Connective Tissue ? Disease ? 95% (U1 nRNP, ?SLE ?30 - 50% anti-ribonucleoprotein) ??Polymyositis and/or ? Dermatomyositis ? 20% ? --------- Scl-70 (antiDNA ?Scleroderma (diffuse) ?20 - 35% topoisomerase) ? Crest ? 13% ? --------- Monica-1 ? Polymyositis and/or ? Dermatomyositis ?20 - 40% ? --------- Centromere B ? Scleroderma - Crest ? variant ? 80% 03/12/2023 7:57 AM CDT 03/12/2023 Narrative [facility] - 03/13/2023 4:12 PM CDT Performed at: ??01 - [address], [place], [place] [id number] Lye Peel Operator: Parveen Lofton PhD, Phone: ??[phone] us Starr SALVADOR LAB BLOOD ORDERABLES Final Result [facility] - [facility] * (ABNORMAL) AMINA ab ql w/rflx to AMINA qn (03/12/2023 7:57 AM CDT) AMINA, direct Positive(A ) Negative [facility] - 01 03/12/2023 7:57 AM CDT 03/12/2023 Narrative [facility] - 03/13/2023 4:12 PM CDT Performed at: ?? [address] ??[id number] Lye Peel Operator: Parveen Lofton PhD, Phone: ??[phone] Starr SALVADOR LAB BLOOD ORDERABLES Final Result [facility] - * (ABNORMAL) Comprehensive metabolic panel (03/12/2023 7:57 AM CDT) Pathologist [facility] Glucose 93 70 - 99 mg/dL [facility] - 01 BUN 12 6 - 24 mg/dL [facility] - 01 Creatinine, Serum 0.70 0.57 - 1.00 mg/dL [facility] - 01 eGFR 100 >59 mL/min/1.7 3 [facility] - 01 BUN/creat ratio 17 9 - 23 [facility] - 01 Sodium 142 134 - 144 mmol/L [facility] - 01 Potassium, sr 3.9 3.5 - 5.2 mmol/L [facility] - 01 Chloride 107(H) 96 - 106 mmol/L [facility] - 01 CO2 22 20 - 29 mmol/L [facility] - 01 Calcium 9.2 8.7 - 10.2 mg/dL [facility] - 01 Protein, sr 6.5 6.0 - 8.5 g/dL [facility] - 01 Albumin 4.1 3.8 - 4.9 g/dL [facility] - 01 Globulin, Total 2.4 1.5 - 4.5 g/dL [facility] - 01 A/G Ratio 1.7 1.2 - 2.2 [facility] - 01 Bilirubin, Total 0.5 0.0 - 1.2 mg/dL [facility] - 01 Alk phos 68 44 - 121 IU/L [facility] - 01 AST 16 0 - 40 IU/L [facility] - 01 ALT 14 0 - 32 IU/L [facility] - 01 Blood 03/12/2023 7:57 AM CDT 03/12/2023 Narrative [facility] - 03/13/2023 7:38 AM CDT Performed at: ??01 - [facility] [address] ??[id number] Lye Peel Operator: Parveen Lofton PhD, Phone: ??[phone] Starr SALVADOR LAB BLOOD ORDERABLES Final Result Performing Organization Address [facility] de Phone Number [facility] - 01 * Magnesium (03/12/2023 7:57 AM CDT) Magnesium 1.9 1.6 - 2.3 mg/dL [facility] - 01 Blood 03/12/2023 7:57 AM CDT 03/12/2023 Narrative [facility] - 03/13/2023 7:38 AM CDT Performed at: ??01 - [facility] ??[id number] Lye Peel Operator: Parveen Lofton PhD, Phone: ??[phone] Result [facility] Starr SALVADOR LAB BLOOD ORDERABLES Final Result Performing Organization Address [facility] de Phone Number [facility] - 01 * Vitamin D 25 hydroxy (03/12/2023 7:57 AM CDT) Vitamin D, 25-Hydroxy 61.0 30.0 - 100.0 ng/mL [facility] - 01 Comment: Vitamin D deficiency has been defined by the [place] of Medicine and an Endocrine Society practice guideline as a level of serum 25-OH vitamin D less than 20 ng/mL (1,2). The Endocrine Society went on to further define vitamin D insufficiency as a level between 21 and 29 ng/mL (2). 1. IOM ([place] of Medicine). 2010. Dietary reference ?? intakes for calcium and D. [place]: The ?? National Academies Press. 2. Jonathan MF, Eli NC, Santiago JOHNSON, et al. ?? Evaluation, treatment, and prevention of vitamin D ?? deficiency: an Endocrine Society clinical practice ?? guideline. JCEM. 2010; 96(7):1911-30. Blood 03/12/2023 7:57 AM CDT 03/12/2023 Narrative [facility] - 03/13/2023 7:38 AM CDT Performed at: ??01 - [address] ??[id number] Lye Peel Operator: Parveen Lofton PhD, Phone: ??[phone] Starr SALVADOR LAB BLOOD ORDERABLES Final Result Performing Organization Address [facility] de Phone Number [facility] - * Vitamin B12 (03/12/2023 7:57 AM CDT) Vitamin B12 314 232 - 1,245 pg/mL [facility] - 01 Blood 03/12/2023 7:57 AM CDT 03/12/2023 Narrative [facility] - 03/13/2023 7:38 AM CDT Performed at: ??[address] ??[id number] Lye Peel Operator: Parveen Lofton PhD, Phone: ??[phone] Result [facility] Starr SALVADOR LAB BLOOD ORDERABLES Final Result Performing Organization Address [facility] - * TSH (03/12/2023 7:57 AM CDT) TSH 1.850 0.450 - 4.500 uIU/mL [facility] - 01 Blood 03/12/2023 7:57 AM CDT 03/12/2023 Narrative [facility] - 03/13/2023 7:38 AM CDT Performed at: ??[address] ??[id number] Lye Peel Operator: Parveen Lofton PhD, Phone: ??[phone] Starr SALVADOR LAB BLOOD ORDERABLES Final Result Performing Organization Address [facility] de Phone Number [facility] - 01 documented in this encounter Visit Diagnoses Diagnosis Annual physical exam- Primary Routine general medical examination at a health care facility Iron deficiency anemia due to chronic blood loss Iron deficiency anemia secondary to blood loss (chronic) Anemia, unspecified type Vasomotor symptoms due to menopause Low vitamin B12 level Vitamin D deficiency Fatigue, unspecified type Arthralgia, unspecified joint Essential hypertension Unspecified essential hypertension Breast cancer screening by mammogram H/O total hysterectomy with bilateral salpingo-oophorectomy (BSO) BMI 36.0-36.9,adult Morbid obesity (HCC) Morbid obesity [...] ght Deltoid documented in this encounter Orders Imaging Orders Without Results Count Last Order ed Date First Ordered Date SCREENING MAMMOGRAM BILATERAL W STUART 1 01/26 documented in this encounter Care Teams Synthetic Resin Operator Relationship Specialty Start Date End Date Starr Bran PA [address] [place] [address] PCP - General Internal Medicine 12/30/18 Bibiana Schuler MD [address] [place] [address] Consulting Physician Gastroenterology 05/11/21 Cornelius Garcia DO [facility] [address] [place] [address] Medical Oncologist/Hematologis t Hematology and Oncology 09/26/21 documented as of this encounter
--- OUTSIDE RECORDS SUMMARY | 2024-07-18 20:28 | XMS_ITS | Encounter Summary ---
Author Organization [facility] Address [address] [place] [address] Care Team Providers Care Shoe Puller Name Role Phone Starr Bran Primary Care Provider [phone] Bibiana Schuler MD Unavailable [phone] Cornelius Garcia DO Unavailable [phone] Encounter Details Date Type Department Care Team (Late st Contact Info) Description 03/20/2023 Telephone [facility] Family Medicine [address] [place] [address] Starr Bran PA [address] [facility] [address] [address] [place] [address] Social History Tobacco Use Types Packs/Day Years [...] on file 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 Is it still possible to add on Lab Power Test #: [id number] (AMINA by IFA, reflex to titer and pattern) If not, I will have to re-order, but I am not sure if this is in [employer] for me to choose -- will havecheck with [employer] people. documented in this encounter Plan of Treatment Not on file documented as of this encounter Visit Diagnoses Not on filedocumented in this encounter Care Teams Shoe Puller Relationship Specialty Start Date End Date Starr Bran PA [address] [place] [address] PCP - General Internal Medicine 12/30/18 Bibiana Schuler MD [address] [place] [address] Consulting Physician Gastroenterology 05/11/21 Cornelius Garcia DO [address] [facility], [address] [place] [address] Medical Oncologist/Hematologis t Hematology and Oncology 09/26/21 documented as of this encounter
--- OUTSIDE RECORDS SUMMARY | 2024-07-18 20:29 | XMS_ITS | Encounter Summary ---
Author Organization [facility] Healthcare Address [address] [place] [address] Care Team Providers Care Black Mill Operator Name Role Phone Starr Bran Primary Care Provider [phone] Bibiana Schuler MD Unavailable [phone] Cornelius Garcia DO Unavailable [phone] Reason for Visit * Auth/Cert (Routine) Specialty Diagnoses / Procedures Referred By Hung t Referred To Contact Diagnoses VASCULAR ECTASIA OF GASTRIC ANTRUM Procedures RI ESOPHAGOGASTRODUODENOSCOPY TRANSORAL DIAGNOSTIC ESOPHAGOGASTRODUODENOSCOPY Referral ID Status Reason Start Date Expiration Date Visits Re quested Visits Authorized [id number] 1 1 Encounter Details Date Type Department Care Team (Latest Contact Info) Description 12/07/2022 12:30 PM CDT - 12/07/2022 1:00 PM CDT Surgery [facility] GI Lab [address] [place] [address] Bibiana Schuler MD [address] [facility] [address] [place] [address] ESOPHAGOGASTRODUODENOSCOPY WITH ABLATION Surgery Details Date/Time Status Location OR Service Patient Class Case Class Case Type Trauma Case? 12/07/2022 12:30 PM Posted [facility] ENDOSCOPY GI 05 Gastroenterology Outpatient Elective Panel 1 Procedure LRB Anes Op Region Wound Class Comments ESOPHAGOGASTRODUODENOSCOPY W ITH ABLATION N/A Monitor Anesthesia Care Class II - Clean Contaminated Surgeon Surgeon Role Service Panel Bibiana Schuler MD Primary Gastroenterology 1 documented in this encounter Social History Tobacco Use Types Packs/Day Years Used Date Smoking Tobacco: Never Smokeless Tobacco: Never Tobacco Cessation:Counseling Given: Not Answered AUDIT-C Answer Date Recorded Q1: How often do you have a drink containing alc ohol? Monthly or less 12/07/2022 Q2: How many drinks containi ng alcohol do you have on a typical day when you are drinking? 1 or 2 12/07/2022 Q3: How often do you have si x or more drinks on one occasion? Never 12/07/2022 PHQ-2 Answer Date Recorded PHQ-2 Total Score (If total score is 3 or more points, staff should administer the PHQ-9) 0 10/04/2022 Personal Safety Answer Date Recorded Have you ever been in or are you currently in a harmful physical or emotional relationship or is someone making you feel afraid or unsafe? 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 Gender Identity Female 02/02/2021 7:25 AM CDT Sexual Orientation Straight 02/02/2021 7: 25 AM CDT documented as of this encounter Last Filed Vital Signs Vital Sign Reading Time Taken Comments Blood Pressure 153/87 12/07/2022 12:05 PM CDT Pulse 72 12/07/2022 12:05 PM CDT Temperature 36.1 ??C (97 ??F) 12/07/2022 11:37 AM CDT Respiratory Rate 16 12/07/2022 12:05 PM CDT Oxygen Saturation 99% 12/07/2022 12:05 PM CDT Inhaled Oxygen Concentration - - [...] TWICE DAILY 180 tablet 2 02/19/2022 12/11/2023 lisinopriL (PRINIVIL,ZESTRI L) 10 mg tablet Take [...] H&P Notes * Bibiana Schuler MD - 12/07/2022 10:59 AM CDT Bibiana Schuler MD Attending Provider: Bibiana Schuler MD PCP: Starr Bran PA PATIENT: Viktoriya Bell : 1965 Date of Visit: 12/07/2022 HPI: Viktoriya Bell is an 57 y.o. female who presents for anemia likely from gave . Patient Active Problem List Diagnosis Essential hypertension Vitamin D deficiency Hyperglycemia Other fatigue SOB (shortness of breath) on exertion Iron deficiency anemia due to chronic blood loss History of pulmonary embolus (PE) Low vitamin B12 level History of DVT (deep vein thrombosis) Acute pain of left knee SOB (shortness of breath) Moderate episode of recurrent major depressive disorder (HCC) H/O total hysterectomy with bilateral salpingo-oophorectomy (BSO) Vasomotor symptoms due to menopause Fatigue Anemia BMI 36.0-36.9,adult Morbid obesity (HCC) Past Medical History: Diagnosis Date Anemia Depression GAVE (gastric antral vascular ectasia) 07/25/[address] Schuler after endoscopy GERD (gastroesophageal reflux disease) Hypertension Pulmonary embolism (HCC) 10/2021 Past Surgical History: Procedure Laterality Date HYSTERECTOMY 08/08/2021 UPPER GASTROINTESTINAL ENDOSCOPY Family History [...] Partners: Male Alcohol Use: Not At Risk (12/07/2022) AUDIT-C Frequency of Alcohol Consumption: Monthly or less Average Number of Drinks: 1 or 2 Frequency of Binge Drinking: Never Recent Concern: Alcohol Use - Heavy Drinker (10/04/2022) AUDIT-C Frequency of Alcohol Consumption: Monthly or less Average Number of Drinks: 1 or 2 Frequency of Binge Drinking: Monthly Facility-Administered Medications Prior to Admission Medication Dose Route Frequency Provider Last Rate Last Admin cyanocobalamin (Vitamin B-12) injection 1,000 mcg 1,000 mcg intramuscular Q30 Days Mariusz Bran., [place] 1,000 mcg at 12/05/22 0902 Medications Prior to Admission Medication Sig Dispense Refill Last Dose aspirin 81 mg enteric coated tablet Take 1 tablet (81 mg total) by mouth daily 12/06/2022 FeroSuL 325 mg (65 mg iron) tablet TAKE 1 TABLET BY MOUTH TWICE DAILY 180 tablet 2 12/06/2022 lisinopriL (PRINIVIL,ZESTRIL) 10 mg tablet Take 1 tablet (10 mg total) by mouth daily 90 tablet 2 12/07/2022 multivitamin tablet daily 12/06/2022 omeprazole (PriLOSEC) 20 mg capsule Take 2 capsules (40 mg total) by mouth daily 12/06/2022 venlafaxine XR (EFFEXOR-XR) 75 mg 24 hr capsule TAKE 3 CAPSULES DAILY WITH FOOD (DOSE INCREASE TO 225 MG. STOP 150 MG) 270 capsule 3 12/06/2022 No Known Allergies Travel Exposure: Travel Screening ALERT Blood pressure 128/85, pulse 86, temperature 36.7 ??C (98.1 ??F), temperature source Temporal, resp. rate 16, SpO2 98 %. Physical Exam Constitutional: she appears well-developed and well-nourished. Cardiovascular: Normal rate. Pulmonary/Chest: Breath sounds normal. Abdominal: Soft, non-tender. she exhibits no edema. Assessment & Plan: EGD Bibiana Schuler MD 12/07/2022 documented in this encounter Procedure Notes * Bibiana Schuler MD - 12/07/2022 11:04 AM CDTAssociated Order(s): EGD [facility] GI ENDOSCOPY Patient Name: Viktoriya Bell Procedure Date: 12/07/2022 11:04 AM Date of : 1965 Admit Type: Outpatient Age: 57 Gender: Female Attending MD: Bibiana Schuler M.D. Room: [facility] ENDOSCOPY ROOM 05 Note Status: Finalized Procedure: Upper GI endoscopy Indications: Iron deficiency anemia secondary to chronic blood loss Referring MD: Providers: Bibiana Schuler M.D. Medicines: See the Anesthesia note for documentation of the administered medications Complications: No immediate complications. Estimated Blood Loss: Estimated blood loss: none. Procedure: The benefits, risks, and alternatives to the [...] was normal. Moderate gastric antral vascular ectasia without bleeding was present in the prepyloric region of the stomach. Moderate gastric antral vascular ectasia with bleeding was present in the prepyloric region of the stomach. Coagulation for bleeding prevention using argon beam at 0.5 liters/minute and 40 veronica was successful. Estimated blood loss was minimal. The examined duodenum was normal. Impression: - Normal esophagus. - Gastric antral vascular ectasia without bleeding. 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 - Normal examined duodenum. - No specimens collected. Recommendation: - Resume previous diet. - Continue present medications. Bibiana Schuler M.D. Bibiana Schuler M.D. 12/07/2022 11:38:46 AM . Number of Addenda: 0 Note Initiated On: 12/07/2022 11:04 AM Recognized by the [employer] for promoting quality in endoscopy documented in this encounter Miscellaneous Notes * Pre-Procedure Instructions - Brissa Donaldson RN - 11/28/2022 1:40 PM CDT - No alcohol or smoking 12 hours before surgery - [place] teeth in the morning but don't swallow any of the water - Shower or bathe, don't apply powders or lotions - Expect to remove wigs, dentures, partials, contact lenses, body piercing's, and hair accessories containing metal - Leave all jewelry and valuables at home - Bring your glasses and hearing aides - Make plans for a responsible adult to bring you home - Bring a living will or POA paperwork if you have it - Follow GI physician instructions regarding blood thinners and vitamins- holding asparin for 3 days per PMD - Bring inhalers - Take prep according to GI physician - Please take the following medications with a sip of water the AM of the procedure: may take effexor and prilosec in am - Covid: no testing needed Location ([facility] 1 Entrance A, [address] [place] [id number]), arrival time (1130), procedure time (1230), NPO status (nothing to eat after midnightthe night before but may have clear liquids until 6am morning of procedure) also reviewed. Patient expressing understanding of all pre-op instructions. documented in this encounter Plan of Treatment Not on file documented as of this encounter Procedures Procedure Name Priority Date/Time Associated Diagnosis Comments EGD 12/07/2022 11:04 AM CDT ESOPHAGOGASTRODUODENOSCOPY W ITH ABLATION 12/07/2022 11:04 AM CDT VASCULAR ECTASIA OF GASTRIC ANTRUM POC BLOOD GAS AND CHEMISTRIE S, VENOUS Routine 12/07/2022 10:44 AM CDT ECG 12-LEAD STAT 12/07/2022 10:24 AM CDT documented in this encounter Results * EGD (12/07/2022 11:04 AM CDT) Anatomical Region Laterality Modality Other Narrative Procedure Note Bibiana Schuler MD - 12/07/2022 11:04 AM CDT [facility] GI ENDOSCOPY Patient Name: Viktoriya Bell Procedure Date: 12/07/2022 11:04 AM Date of : 1965 Admit Type: Outpatient Age: 57 Gender: Female Attending MD: Bibiana Schuler M.D. Room: [facility] ENDOSCOPY ROOM 05 Note Status: Finalized Procedure: Upper GI endoscopy Indications: Iron deficiency anemia secondary to chronic bloodloss Referring MD: Providers: Bibiana Schuler M.D. Medicines: See the Anesthesia note for documentation of the administered medications Complications: No immediate complications. Estimated Blood Loss: Estimated blood loss: none. Procedure: The benefits, risks, and alternatives to theprocedure [...] was normal. Moderate gastric antral vascular ectasia without bleeding was presentin the prepyloric region of the stomach. Moderate gastric antral vascular ectasia with bleeding was present in the prepyloric region of the stomach. Coagulation for bleeding prevention using argon beam at 0.5 liters/minute and 40 veronica was successful. Estimated blood loss was minimal. The examined duodenum was normal. Impression: - Normal esophagus. - Gastric antral vascular ectasia withoutbleeding. 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 - Normal examined duodenum. - No specimens collected. Recommendation: - Resume previous diet. - Continue present medications. Bibiana Schuler M.D. Bibiana Schuler M.D. 12/07/2022 11:38:46 AM . Number of Addenda: 0 Note Initiated On: 12/07/2022 11:04 AM Recognized by the [employer] for promoting quality in endoscopy Bibiana Schuler MD ENDOSCOPY PROCEDURES [place] sherif Result * (ABNORMAL) POC Blood Gas and Chemistries, Venous - (12/07/2022 10:44 AM CDT) pH,trudy POC 7.42 7.32 - 7.43 [facility] pCO2, trudy POC 37(L) 40 - 50 mmHg [facility] pO2,trudy POC 53 mmHg [facility] Comment: Interpretive Data No reference range established. Current interpretive data was last revised 2020. HCO3, trudy (Calc) POC 24 20 - 30 mmol/L [facility] Base excess, trudy POC 0 mmol/L [facility] Comment: Interpretive Data No reference range established. Current interpretive data was last revised 2020. Hemoglobin, trudy POC 10.9(L) 11.9 - 15.5 g/dL [facility] Hematocrit, trudy POC 32.0(L) 35.6 - 45.5 % [facility] Sodium, trudy POC 142 135 - 145 mmol/L [facility] Potassium, trudy POC 4.1 3.3 - 4.9 mmol/L [facility] Comment: Interpretive Data This method is not able to assess for hemolysis, which may falsely increase potassium concentrations. If further testing is needed to evaluate this result, consider in-laboratory plasma potassium. Current Interpretive Data was last revised on 2022. Glucose, trudy POC 101 70 - 199 mg/dL [facility] Ionized Calcium, trudy POC 5.10 4.50 - 5.20 mg/dL [facility] Blood 12/07/2022 10:4 4 AM CDT 12/07/2022 10:44 AM CDT us Bibiana Schuler MD LAB POCT ORDERABLES - DEV ICE Final Result Performing Organization Address City/[facility]/ZIP Co de Phone Number [facility] [address] [facility] [place] [address] * ECG 12 lead (12/07/2022 10:24 AM CDT) Pathologist [facility] Ventricular Rate EKG/Min 76 BPM [facility] Atrial Rate 76 BPM [facility] RI-Interval (MSEC) 144 ms [facility] QRS-Interval (MSEC) 98 ms [facility] QT-Interval (MSEC) 408 ms [facility] QTc 459 ms [facility] P [place] 43 degrees [facility] R [place] 9 degrees [facility] T [place] 56 degrees [facility] Diagnosis Normal sinus rhythm Normal ECG When compared with ECG of 31-OCT-2020 17:01, Nonspecific T wave abnormality no longer evident in Lateral leads [facility] 12/07/2022 10:2 4 AM CDT 12/07/2022 2:31 PM CDT us Tommy Spaulding MD ECG ORDERABLES Final Result Performing Organization Address [facility] de Phone Number [facility] documented in this encounter Visit Diagnoses Not on filedocumented in this encounter Administered Medications Inactive Administered Medications - up to 3 most recent administrations Medication Order MAR Action Action Date Dose Rate Site Lactated Ringer's (LR) infusion 30 mL/hr, intravenous, Continuous, Starting on Sat12/07/22 at 1045, Pre-Op, Restarted 12/07/2022 11:03 AM CDT New Bag 12/07/2022 10:43 AM CDT 30 mL/hr 30 mL/hr lidocaine (XYLOCAINE) 10 mg/mL (1 %) injection 2-10 mg 2-10 mg (0.2-1 mL), other, Once as needed, pain with IV placement, Starting on Sat12/07/22 at 1012, For 1 dose, Pre-Op, Administer volume needed to infiltrate IV site. documented in this encounter Discontinued Medications Medication Sig Discontinue Reason Start Date End Da te sucralfate (CARAFATE) 1 gram tablet Take 1 g by mouth 2 (two) times a day with lunch and bedtime Therapy completed 12/07/2022 documented as of this encounter Active and Recently Administered Medications Times are shown in CDT. Scheduled Medication Order 12/05/2022 12/06/2022 12/07/2022 famotidine (PEPCID) tablet 20 mg 20 mg, oral, Once, On Sat12/07/22 at 1045, For 1 dose, Pre-Op, Indications: gastroesophageal reflux disease 1054 (Not Given - Pr ovider: Remington Andrade RN - Reason: NPO) Continuous Medication Order 12/05/2022 12/06/2022 12/07/2022 Lactated Ringer's (LR) infusion 30 mL/hr, intravenous, Continuous, Starting on Sat12/07/22 at 1045, Pre-Op, 1043 (New Bag - Prov ider: Remington Andrade RN)1102 (Paused - Provider: Josiane Honeycutt CRNA - Comment: Switch to gravity)1103 (Restarted - Provider: Josiane Honeycutt CRNA)1126 (Anesthesia Volume Adjustment - Provider: Josiane Honeycutt CRNA)1212 (Stopped - Provider: Shy De Los Santos RN) Lactated Ringer's (LR) infusion 125 mL/hr, intravenous, Continuous, Starting on Sat12/07/22 at 1230, Phase I, PRN Medication Order 12/05/2022 12/06/2022 12/07/2022 diphenhydrAMINE (BENADRYL) 50 mg/mL injection 12.5 mg 12.5 mg, intravenous, Every 15 min PRN, itching, Starting on Sat12/07/22 at 1152, For 2 doses, Phase I, Max cumulative dose 50 mg., Indications: Itching fentaNYL (SUBLIMAZE) preservative free injection 25 mcg 25 mcg, intravenous, Every 10 min PRN, For uncontrolled pain use in the pacu only, Starting on Sat12/07/22 at 1152, Phase I, Then proceed to PACU 1st line analgesic., Indications: Pain hydrALAZINE (APRESOLINE) injection 5 mg 5 mg, intravenous, Administer over 2 Minutes, Every 15 min PRN, high blood pressure, Starting on Sat12/07/22 at 1152, Phase I, Max cumulative dose 20 mg. Dose if systolic BP greater than 180 AND heart rate less than 70. labetaloL (NORMODYNE,TRANDATE) injection 5 mg 5 mg, intravenous, at 30 mL/hr, Administer over 2 Minutes, Every 10 min PRN, high blood pressure, Starting on Sat12/07/22 at 1152, Phase I, Max cumulative dose 20 mg. Dose if systolic blood pressure greater than 180 AND HR greater than 70. lidocaine (XYLOCAINE) 10 mg/mL (1 %) injection 2-10 mg 2-10 mg (0.2-1 mL), other, Once as needed, pain with IV placement, Starting on Sat12/07/22 at 1012, For 1 dose, Pre-Op, Administer volume needed to infiltrate IV site. meperidine (DEMEROL) preservative free injection 25 mg 25 mg, intravenous, Administer over 5 Minutes, Every 10 min PRN, shivering, Starting on Sat12/07/22 at 1152, For 1 dose, Phase I, Max cumulative dose 25 mg., Indications: Shivering metoclopramide (REGLAN) 5 mg/mL injection 10 mg 10 mg, intravenous, Administer over 1 Minutes, Once as needed, nausea, vomiting, Starting on Sat12/07/22 at 1152, For 1 dose, Phase I, If nausea/vomiting not relieved by ondansetron within 30 minutes or if ondansetron has been given within the last 6 hours. naloxone (NARCAN) 0.4 mg/mL injection 0.04-0.4 mg 0.04-0.4 mg, intravenous, Once as needed, other, excessive sedation/respiratory depression, Starting on Sat12/07/22 at 1152, For 1 dose, Phase I, Dilute 0.4 mg with 9 mL NS (final concentration 0.04 mg/mL). For respiratory depression (respiratory rate less than 6), administer 0.4 mg IVP over 30 seconds. For excessive sedation administer 0.04 mg (1 mL) every 1 minute until desired level of alertness. For IV, administer over 30 seconds., Indications: Opioid Toxicity ondansetron (ZOFRAN) injection 4 mg 4 mg, intravenous, Administer over 2 Minutes, Once as needed, nausea, vomiting, Starting on Sat12/07/22 at 1152, For 1 dose, Phase I, Proceed to metoclopramide if ondansetron has been given within the last 6 hours. documented in this encounter Orders Medications Ordered That Sonido ht Not Have Been Administered Count Last Ordered Date First Ordered Date diphenhydrAMINE (BENADRYL) 5 0 mg/mL injection 12.5 mg 1 12/07/2022 famotidine (PEPCID) tablet 20 mg 1 12/08/19 23 fentaNYL (SUBLIMAZE) preserv ative free injection 25 mcg 1 12/07/2022 hydrALAZINE (APRESOLINE) injection 5 mg 1 0 12/07/2022 labetaloL (NORMODYNE,TRANDAT E) injection 5 mg 1 12/07/2022 Lactated Ringer's (LR) infusion 1 3 lidocaine (XYLOCAINE) 10 mg/ mL (1 %) injection 2-10 mg 1 12/07/2022 meperidine (DEMEROL) preserv ative free injection 25 mg 1 12/07/2022 metoclopramide (REGLAN) 5 mg /mL injection 10 mg 1 12/07/2022 naloxone (NARCAN) 0.4 mg/mL injection 0.04-0.4 mg 1 12/07/2022 ondansetron (ZOFRAN) injection 4 mg 1 12/07 Discharge Count Last Ordered Date First Orde red Date DISCHARGE PATIENT 1 12/07/2022 documented in this encounter Care Teams Black Mill Operator Relationship Specialty Start Date End Date Starr Bran PA [address] [place] [address] PCP - General Internal Medicine 12/30/18 Bibiana Schuler MD [address] [place] [address] Consulting Physician Gastroenterology 05/11/21 Cornelius Garcia DO [address] [place] [address] MEDICAL ONCOLOGY, [facility] [address] [place] [address] Medical Oncologist/Hematologis t Hematology and Oncology 09/26/21 documented as of this encounter
--- OUTSIDE RECORDS SUMMARY | 2024-07-18 20:29 | XMS_ITS | Encounter Summary ---
Author Organization [facility] Address [address] [facility] [address] [place] [address] Phone Care Team Providers Care Drill Press Hand Name Role Phone Starr Bran Primary Care Provider [phone] Bibiana Schuler MD Unavailable [phone] Cornelius Garcia DO Unavailable [phone] Encounter Details Date Type Department Care Team (Late st Contact Info) Description 01/31/2023 7:30 AM CDT Lab [facility] Oncology [address] [place] [address] [place] [phone] Iron deficiency anemia due to chronic [...] on file 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 Gender Identity Female 02/02/2021 7:25 AM [...] rst Ordered Date ONCBCN LAB APPOINTMENT 1 01/31/2023 documented in this encounter Care Teams Drill Press Hand Relationship Specialty Start Date End Date Starr Bran PA [address] [place] [address] PCP - General Internal Medicine 12/30/18 Bibiana Schuler MD [address] [place] [address] Consulting Physician Gastroenterology 05/11/21 Cornelius Garcia DO [address] [place] [address] MEDICAL ONCOLOGY, [facility] [address] [place] [address] Medical Oncologist/Hematologis t Hematology and Oncology 09/26/21 documented as of this encounter
--- OUTSIDE RECORDS SUMMARY | 2024-07-18 20:29 | XMS_ITS | Encounter Summary ---
Author Organization [facility] Healthcare Address [address] [place] [address] Care Team Providers Care Medical Accounts Receivable Specialist Name Role Phone Starr Bran Primary Care Provider [phone] Bibiana Schuler MD Unavailable [phone] Cornelius Garcia DO Unavailable [phone] Reason for Visit * Auth/Cert (Routine) Specialty Diagnoses / Procedures Referred By Hung gao Referred To Contact Diagnoses VASCULAR ECTASIA OF GASTRIC ANTRUM Procedures CA ESOPHAGOGASTRODUODENOSCOPY TRANSORAL DIAGNOSTIC ESOPHAGOGASTRODUODENOSCOPY Referral ID Status Reason Start Date Expiration Date Visits Re quested Visits Authorized [id number] 1 1 Encounter Details Date Type Department Care Team (Late st Contact Info) Description 12/07/2022 11:03 AM CDT Anesthesia Event [facility] Lab [address] [place] [address] Livier Ozuna MD [address] [facility] [id number] [place] [id number] Tommy Spaulding MD [address] [place] [address] Anesthesia Record Procedure Summary Procedure Name Responsible Anesthesiologist Anesthesia Start Time Anesthesia Stop Time ESOPHAGOGASTRODUODENOSCOPY W ITH ABLATION Livier Ozuna MD 12/07/22 1103 12/07/22 1126 Events Date Time Event Comment 12/07/2022 1031 1103 An Start 1103 An Start Data 1104 In Room 1109 An Induction The patient was reevaluated immediately before moderate or deep sedation use and before anesthesia induction. 1109 Anesthesia Ready 1111 Proc Start 1125 Proc Fin 1126 an stop data 1126 Handoff to RN I completed my handoff [...] Patient disposition at the time of handoff: No value filed. 1126 An Stop 1127 Out of Room Meds Name Total lidocaine (cardiac) syringe 2 % 40 mg propofol 129.5 mg glycopyrrolate 200 mcg Lactated Ringer's (LR) infusion 400 mL * Agents Name O2% N2O O2 N2O Air * Blood No blood administrations on file. 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 Gender Identity Female 02/02/2021 7:25 AM CDT Sexual Orientation Straight 02/02/2021 7: 25 AM CDT documented as of this encounter OR Notes * Anesthesia Postprocedure Evaluation - Livier Ozuna MD - 12/07/2022 12:00 PM CDT Patient: Viktoriya Bell Procedure Summary Date: 12/07/22 Room / Location: [facility] ENDOSCOPY ROOM 05 / [facility] ENDOSCOPY Anesthesia Start: 1103 Anesthesia Stop: 1126 Procedure: ESOPHAGOGASTRODUODENOSCOPY Diagnosis: (VASCULAR ECTASIA OF GASTRIC ANTRUM) Providers: Bibiana Schuler MD Responsible Provider: Livier Ozuna MD Anesthesia Type: MAC ASA Status: 3 Anesthesia Type: MAC Last vitals BP 134/98 Pulse 74 Temp 36.1 ??C (97 ??F) (Temporal) Resp 20 SpO2 98% Anesthesia Post Evaluation Patient location during evaluation: PACU Patient participation: complete - patient participated Level of consciousness: fully awake Pain score: 0 Pain management: adequate Airway patency: adequate Evidence of recall: no Cardiovascular status: acceptable Respiratory status: acceptable Hydration status: acceptable Pt is: normothermic Nausea/Vomiting status: none No notable events documented. * Anesthesia Preprocedure Evaluation - Livier Ozuna MD - 12/07/2022 10:30 AM CDT Images from the original note were not included. Anesthesia Evaluation Viktoriya Bell is a 57 y.o. female Procedure(s): ESOPHAGOGASTRODUODENOSCOPY * No Diagnosis Codes entered * HISTORY Past Medical History Neurological Neuro/Psych system: negative Cardiovascular + Hypertension + DVT/PE Respiratory Respiratory system: negative Hepatic / Heme + History of anemia Gastrointestinal + GERD Renal / Renal/ system: negative Musculoskeletal/Pain Musculoskeletal/Pain system: negative Endocrine / Other + Obesity (BMI >30) Functional Capacity Functional capacity: 6-10 METs Patient Active Problem List Diagnosis ??? Essential hypertension ??? Vitamin D deficiency ??? Hyperglycemia ??? Other fatigue ??? SOB (shortness of breath) on exertion ??? Iron deficiency anemia due to chronic blood loss ??? History of pulmonary embolus (PE) ??? Low vitamin B12 level ??? History of DVT (deep vein thrombosis) ??? Acute pain of left knee ??? SOB (shortness of breath) ??? Moderate episode of recurrent major depressive disorder (HCC) ??? H/O total hysterectomy with bilateral salpingo-oophorectomy (BSO) ??? Vasomotor symptoms due to menopause ??? Fatigue ??? Anemia ??? BMI 36.0-36.9,adult ??? Morbid obesity (HCC) Past Medical History: Diagnosis Date ??? Anemia ??? Depression ??? GAVE (gastric antral vascular ectasia) 07/25/[address] Schuler after endoscopy ??? GERD (gastroesophageal reflux disease) ??? Hypertension ??? Pulmonary embolism (HCC) 10/2021 Past Surgical History: Procedure Laterality Date ??? HYSTERECTOMY 08/08/2021 ??? UPPER GASTROINTESTINAL ENDOSCOPY OB History No obstetric history on file. No Known Allergies Taking? Last Dose Start Date End Date Provider aspirin 81 mg enteric coated tablet 11/28/2022 -- -- ProviderSaloni MD cyanocobalamin (Vitamin B-12) injection 1,000 mcg -- 10/04/22 -- Starr Bran PA 1,000 mcg, intramuscular, Every 30 days, First dose on [facility] 10/04/22 at 1030 FeroSuL 325 mg (65 mg iron) tablet 11/28/2022 02/19/22 -- Starr Bran PA TAKE 1 TABLET BY MOUTH TWICE DAILY lisinopriL (PRINIVIL,ZESTRIL) 10 mg tablet 11/28/2022 10/22/22 -- Starr Bran PA Take 1 tablet (10 mg total) by mouth daily multivitamin tablet 11/28/2022 -- -- Saloni Jones MD omeprazole (PriLOSEC) 20 mg capsule 11/28/2022 -- -- Saloni Jones MD venlafaxine XR (EFFEXOR-XR) 75 mg 24 hr capsule 11/28/2022 06/27/22 -- Starr Bran PA TAKE 3 CAPSULES DAILY WITH FOOD (DOSE INCREASE TO 225 MG. STOP 150 MG) Flag for Review Taking? Last Dose Start Date End Date Provider sucralfate (CARAFATE) 1 gram tablet Not Taking -- -- Provider, MD Saloni Current Facility-Administered Medications: ??? famotidine (PEPCID) tablet 20 mg, 20 mg, oral, Once ??? Lactated Ringer's (LR) infusion, 30 mL/hr, intravenous, Continuous ??? lidocaine (XYLOCAINE) 10 mg/mL (1 %) injection 2-10 mg, 0.2-1 mL, other, Once PRN Social History Tobacco Use Smoking Status Never Smokeless Tobacco Never Vaping Use Vaping Status Not on file Alcohol Use: Not At Risk (11/28/2022) AUDIT-C ??? Frequency of Alcohol Consumption: Monthly or less ??? Average Number of Drinks: 1 or 2 ??? Frequency of Binge Drinking: Never Recent Concern: Alcohol Use - Heavy Drinker (10/04/2022) AUDIT-C ??? Frequency of Alcohol Consumption: Monthly or less ??? Average Number of Drinks: 1 or 2 ??? Frequency of Binge Drinking: Monthly Substance and Sexual Activity Drug Use Never Family History Problem Relation Age of Onset ??? Hypertension Mother ??? No Known Problems Sister ??? No Known Problems Daughter ??? No Known Problems Maternal Grandmother ??? No Known Problems Paternal Grandmother ??? No Known Problems Mother's Sister ??? No Known Problems Father's Sister ??? No Known Problems Maternal Great-Grandmother ??? No Known Problems Paternal Great-Grandmother ??? No Known Problems Maternal Half-Sister ??? No Known Problems Paternal Half-Sister ??? No Known Problems Maternal cousin ??? No Known Problems Paternal cousin ??? No Known Problems Child ??? No Known Problems Cousin ??? No Known Problems Niece ??? Hypertension Father ??? No Known Problems Brother ??? No Known Problems Son ??? No Known Problems Maternal Grandfather ??? No Known Problems Paternal Grandfather ??? No Known Problems Mother's Brother ??? No Known Problems Father's Brother ??? No Known Problems Maternal Great-Grandfather ??? No Known Problems Paternal Great-Grandfather ??? No Known Problems Maternal Half-Brother ??? No Known Problems Paternal Half-Brother ??? No Known Problems Nephew ??? No Known Problems Other ??? BRCA 1 Neg Hx ??? BRCA 2 Neg Hx ??? Breast cancer Neg Hx ??? Ovarian cancer Neg Hx ??? Benign Breast Condition Neg Hx ??? Ductal Carcinoma In-Situ Neg Hx ??? Usual Breast Hyperplasia Neg Hx ??? Thyroid cancer Neg Hx ??? Endometrial cancer Neg Hx PAT Physical Exam Airway Exam: Mallampati: II Cervical ROM: FROM TM distance: normal Cardiovascular Exam: Rate: regular Rhythm: regular Pulmonary Exam: LCTA, bilat EENT Exam: trachea midline Dental Exam: Appears intact Current state: Patient's current state is cooperative and interactive. Vitals: 12/07/22 1016 BP: 128/85 Pulse: 86 Resp: 16 Temp: 36.7 ??C (98.1 ??F) SpO2: 98% PT: No results found for requested labs within last 30 days. INR: No results found for requested labs within last 30 days. APTT: No results found for requested labs within last 30 days. Hgb A1C: No results found for requested labs within last 30 days. CBC RBC: No results found for requested labs within last 30 days. RDW: No results found for requested labs within last 30 days. MCHC: No results found for requested labs within last 30 days. MCH: No results found for requested labs within last 30 days. MCV: No results found for requested labs within last 30 days. Hct: No results found for requested labs within last 30 days. Hgb: No results found for requested labs within last 30 days. WBC: No results found for requested labs within last 30 days. MPV: No results found for requested labs within last 30 days. Platelets: No results found for requested labs within last 30 days. RDW CV: No results found for requested labs within last 30 days. RDW Sd: No results found for requested labs within last 30 days. BMP Glucose: No results found for requested [...] Medical history, medications, and allergies reviewed. Attestation: This PAT evaluation 12/07/2022. Airway Exam: Cervical ROM: FROM Cardiovascular Exam: Rate: regular Rhythm: regular Pulmonary Exam: LCTA, bilat EENT Exam: trachea midline Dental Exam: Appears intact Current state: Patient's current state is cooperative and interactive. Anesthesia Plan ASA 3 My patient is approved for the Anesthesia Controlled Medication protocol when under care of a HUMAN RESOURCES SPECIALIST Planned anesthesia: MAC Induction: Induction: intravenous. Postoperative Plan: Postoperative administration opioids intended. No postoperative mechanical ventilation intended. Planned trial extubation. Informed Consent: Discussed plan with HUMAN RESOURCES SPECIALIST. Anesthesia plan and risks discussed with patient. [...] MAR Action Action Date Dose Rate Site glycopyrrolate (ROBINUL) injection intravenous, Administer over 1 Minutes, As needed, Starting on Sat12/07/22 at 1107, Anesthesia Intra-op Given 12/07/2022 11:07 AM CDT 200 mcg Lactated Ringer's (LR) infusion 30 mL/hr, intravenous, Continuous, Starting on Sat12/07/22 at 1045, Pre-Op, Restarted 12/07/2022 11:03 AM CDT New Bag 12/07/2022 10:43 AM CDT 30 mL/hr 30 mL/hr lidocaine (cardiac) (XYLOCAINE) preservative free injection intravenous, As needed, Starting on Sat12/07/22 at 1107, Anesthesia Intra-op, Indications: Ventricular ArrhythmiasIndications:Ventri cular Arrhythmias Given 12/07/2022 11:07 AM CDT 40 mg propofoL (DIPRIVAN) 10 mg/mL IV intravenous, Continuous PRN, Starting on Sat12/07/22 at 1109, Anesthesia Intra-op New Bag 12/07/2022 11:09 AM CDT 100 mcg/kg/min 55.5 mL/hr documented in this encounter Care Teams Medical Accounts Receivable Specialist Relationship Specialty Start Date End Date Starr Bran PA [address] [place] [address] PCP - General Internal Medicine 12/30/18 Bibiana Schuler MD [address] [place] [address] Consulting Physician Gastroenterology 05/11/21 Cornelius Garcia DO [address] [place] [address] MEDICAL ONCOLOGY, [address] [place] [address] Medical Oncologist/Hematologis t Hematology and Oncology 09/26/21 documented as of this encounter
--- OUTSIDE RECORDS SUMMARY | 2024-07-18 20:29 | XMS_ITS | Encounter Summary ---
Author Organization [facility] Address [address] [address] Care Team Providers Care Range Management Specialist Name Role Phone Starr Bran Primary Care Provider [phone] Bibiana Schuler MD Unavailable Cornelius Garcia DO Unavailable [phone] Reason for Visit * Reason Comments Injections Pt presents today fo r B12 injectiom. Injection given in left deltoid. Encounter Details Date Type Department Care Team (Late st Contact Info) Description 12/05/2022 9:00 AM CDT Clinical Support [facility] Family Medicine [address] [facility] [address] [place] [address] Social History Tobacco Use Types Packs/Day Years Used Date Smoking Tobacco: Never Smokeless Tobacco: Never AUDIT-C Answer Date Recorded Q1: How often do you have a drink containing alc ohol? Monthly or less 11/28/2022 Q2: How many drinks containi ng alcohol do you have on a typical day when you are drinking? 1 or 2 11/28/2022 Q3: How often do you have si x or more drinks on one occasion? 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 Gender Identity Female 02/02/2021 7:25 AM [...] Deltoid documented in this encounter Care Teams Range Management Specialist Relationship Specialty Start Date End Date Starr Bran PA [address] [facility] [address] [place] [address] PCP - General Internal Medicine 12/30/18 Bibiana Schuler MD [address] [facility] [address] [place] [address] Consulting Physician Gastroenterology 05/11/21 Cornelius Garcia DO [address] [place] [address] MEDICAL ONCOLOGY, [facility] [address] [place] [address] Medical Oncologist/Hematologis t Hematology and Oncology 09/26/21 documented as of this encounter
--- OUTSIDE RECORDS SUMMARY | 2024-07-18 20:29 | XMS_ITS | Encounter Summary ---
Author Organization [facility] Address [address] [facility] [address] [place] [address] Phone Care Team Providers Care Beverage Server Name Role Phone Starr Bran Primary Care Provider [phone] Bibiana Schuler MD Unavailable [phone] Ani Villafana DO Unavailable [phone] Reason for Visit * Reason Comments Follow-up Encounter Details Date Type Department Care Team (Late st Contact Info) Description 01/31/2023 8:00 AM CDT Office Visit 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 Gender Identity Female 02/02/2021 7:25 AM CDT Sexual Orientation Straight 02/02/2021 7: 25 AM CDT documented as of this encounter Last Filed Vital Signs Vital Sign Reading Time Taken Comments Blood Pressure 140/83 01/31/2023 8:00 AM CDT Pulse 85 01/31/2023 8:00 AM CDT Temperature 36.6 ??C (97.9 ??F) 01/31/2023 8:00 AM CD T Respiratory Rate 17 01/31/2023 8:00 AM CDT Oxygen Saturation 98% 01/31/2023 8:00 AM CDT Inhaled Oxygen Concentration - - Weight 90.9 kg (200 lb 6.4 oz) 01/31/2023 8:00 A M CDT Height 157.5 cm (5' 2 ) 01/31/2023 8:00 AM CDT Body Mass Index 36.65 01/31/2023 8:00 AM CDT documented in this encounter Progress Notes * Rose Skelton, DAMAGE INSIDE ADJUSTER - 01/31/2023 8:00 AM CDT Patient ID: Viktoriya Bell is a 57 y.o. female. Primary Care Provider: Starr Bran [...] will continue to follow up with Dr. Schuler. 3. For her night time hot flashes, I recommended that she speak with her SYRUPER. She may benefit from gabapentin. 4. For her night time joint pain, I recommended she try a low dose of ibuprofen or tylenol as well as benadryl. 5. Due to her ongoing gastric bleeding, we will see her again in 6 months. Patient Active Problem List Diagnosis ??? Essential [...] ??? BMI 36.0-36.9,adult ??? Morbid obesity (HCC) Diagnoses and all orders for this visit: Iron deficiency anemia due to chronic blood loss (Primary) - Clinic Appointment Request Follow up; ROSE SKELTON; Clinic Appointment Location: [facility] ONCE2 180 - Clinic Appointment Request Follow up; ANI VILLAFANA; Clinic Appointment Location: [facility] ONC E2 180; Future - Lab Draw Appt Request Arm Draw or Central Line Draw? Arm; Order[facility]: [facility] Onc/Hem/BMT; Treatment location: [facility]; Future - CBC with auto differential; Future - Ferritin; Future - Iron profile w/ IBC; Future Subjective Interval History: A. Iron deficiency anemia. [...] iron supplementation once a day. 7. Her hydropulper performed laparoscopic hysterectomy with bilateral salpingo oophorectomy [...] her urine and stool. She denies PICA. Interval Notes: I have reviewed: allergies, current medications, past family history, past medical history, past social history, past surgical history and problem list HPI Review of Systems All other systems reviewed and are negative. Objective Physical Exam: Vital Signs for this encounter: BSA: 1.99 meters squared BP 140/83 (BP Location: Left arm) Pulse 85 Temp 36.6 ??C (97.9 ??F) (Oral) Resp 17 Ht 157.5cm (5' 2 ) Wt 90.9 kg (200 lb 6.4 oz) SpO2 98% BMI 36.65 kg/m?? Physical Exam Constitutional: Appearance: Normal appearance. [...] Results: WBC Date Value Ref Range Status 01/31/2023 4.4 3.8 - 9.9 K/cumm Final Comment: Testing performed by: [address] [id number] 05/22/2022 3.3 (L) 3.4 - 10.8 x10E3/uL Final Hgb Date Value Ref Range Status 01/31/2023 12.6 11.9 - 15.5 g/dL Final Comment: Testing performed by: [address] [address] 05/22/2022 9.2 (L) 11.1 - 15.9 g/dL Final Hct Date Value Ref Range Status 01/31/2023 37.0 35.6 - 45.5 % Final Comment: Testing performed by: [address] [address] 05/22/2022 29.7 (L) 34.0 - 46.6 % Final Platelets Date Value Ref Range Status 05/22/2022 258 150 - 450 x10E3/uL Final Plt Date Value Ref Range Status 01/31/2023 200 150 - 400 K/cumm Final Comment: Testing performed by: [address] [address] Creatinine, Serum Date Value Ref Range Status 05/22/2022 0.61 0.57 - 1.00 mg/dL Final AST Date Value Ref Range Status 05/22/2022 23 0 - 40 IU/L Final Rose Skelton, BSN, MSN, AGPCNP-C Medical Oncology [facility] documented in this encounter Plan of Treatment Not on file documented as of this encounter Results * Iron profile w/ IBC (08/01/2023 9:03 AM PLY BANDER) Iron 79 35 - 145 mcg/dL LELAND GARCIA Comment:Testing performed by : [address], [address] TIBC 293 250 - 400 mcg/dL LELAND Comment:Testing performed by : [address] [address] Transferrin saturation 27 20 - 50 % LELAND GARCIA Comment:Testing performed by : [address] [address] Blood 08/01/2023 9:03 AM PLY BANDER 08/01/2023 10:20 AM PLY BANDER Rose Skelton DAMAGE INSIDE ADJUSTER LAB BLOOD ORDERABLES Final Re sult Performing Organization Address City/[facility]/ZIP Co de Phone Number [address] [place] [address] * Ferritin (08/01/2023 9:03 AM PLY BANDER) Ferritin 38 15 - 150 ng/mL LELAND Comment:Testing performed by : [address], [address] Blood 08/01/2023 9:03 AM PLY BANDER 08/01/2023 10:20 AM PLY BANDER Rose Skelton DAMAGE INSIDE ADJUSTER LAB BLOOD ORDERABLES Final Re sult Performing Organization Address City/[facility] Co de Phone Number [address] [place] [address] * CBC with auto differential (08/01/2023 9:03 AM PLY BANDER) WBC 4.7 3.8 - 9.9 K/cumm LELAND GARCIA Comment:Testing performed by : [address] [address] Hgb 12.1 11.9 - 15.5 g/dL LELAND GARCIA Comment:Testing performed by : [address] [address] Hct 36.3 35.6 - 45.5 % LELAND GARCIA Comment:Testing performed by : [address] [address] Plt 219 150 - 400 K/cumm LELAND Comment:Testing performed by : [address] [address] MPV 9.4 9.1 - 12.3 fL LELAND Comment:Testing performed by : [address] [address] RBC 4.24 3.90 - 5.20 M/cumm LELAND Comment:Testing performed by : [address] [address] MCV 85.6 81.3 - 96.4 fL LELAND Comment:Testing performed by : [address] [address] MCH 28.5 27.1 - 33.3 pg LELAND Comment:Testing performed by : [address] [address] MCHC 33.3 32.3 - 35.7 g/dL LELAND Comment:Testing performed by : [address] [address] RDW CV 13.4 11.1 - 14.9 % LELAND Comment:Testing performed by : [address] [address] RDW SD 41.6 35.7 - 48.1 fL LELAND Comment:Testing performed by : [address] [address] Blood 08/01/2023 9:03 AM PLY BANDER 08/01/2023 9:04 AM PLY BANDER us Rose Skelton NP LAB BLOOD ORDERABLES Final Re sult L[facility]AND [address] [facility] Department [place] [address] documented in this encounter Visit Diagnoses Diagnosis Iron deficiency anemia due to chronic blood loss- Primary Iron deficiency anemia secondary to blood loss (chronic) documented in this encounter Orders Appointment Requests Count Last Ordered Date Fi rst Ordered Date ONCBCN CLINIC APPOINTMENT REQUEST 2 024 01/31/2023 ONCBCN LAB APPOINTMENT 1 08/01/2023 documented in this encounter Care Teams Beverage Server Relationship Specialty Start Date End Date Starr Bran PA [address] [place] [address] PCP - General Internal Medicine 12/30/18 Bibiana Schuler MD [address] [place] [address] Consulting Physician Gastroenterology 05/11/21 Ani Villafana DO [address] [place] [address] MEDICAL ONCOLOGY, [facility] [address] [place] [address] Medical Oncologist/Hematologis t Hematology and Oncology 09/26/21 documented as of this encounter
--- OUTSIDE RECORDS SUMMARY | 2024-07-18 20:29 | XMS_ITS | Encounter Summary ---
Author Organization [facility] Address [address] [address] Care Team Providers Care Registered Dietician Name Role Phone Starr Bran Primary Care Provider [phone] Bibiana Schuler MD Unavailable [phone] Cornelius Garcia DO Unavailable [phone] Reason for Visit * Reason Comments nurse visit B12 injection Encounter Details Date Type Department Care Team (Latest Contact Info) Description 10/30/2022 9:00 AM CDT Clinical Support [facility] Family Medicine [address] [facility] [address] [place] [address] Low vitamin B12 level (Primary Dx) Social History Tobacco Use Types Packs/Day Years Used Date Smoking Tobacco: Never Smokeless Tobacco: Never AUDIT-C Answer Date Recorded Q1: How often do you have a drink containing alc ohol? Monthly or less 10/04/2022 Q2: How many drinks containi ng alcohol do you have on a typical day when you are drinking? 1 or 2 10/04/2022 Q3: How often do you have si x or more drinks on one occasion? 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 Gender Identity Female 02/02/2021 7:25 AM CDT Sexual Orientation Straight 02/02/2021 7: 25 AM CDT documented as of this encounter Plan of Treatment Not on file documented as of this encounter Visit Diagnoses Diagnosis Low vitamin B12 level- Primary documented in this encounter Administered Medications [...] Deltoid documented in this encounter Care Teams Registered Dietician Relationship Specialty Start Date End Date Starr Bran PA [address] [place] [address] PCP - General Internal Medicine 12/30/18 Bibiana Schuler MD [address] [place] [address] Consulting Physician Gastroenterology 05/11/21 Cornelius Garcia DO [address] [place] [address] MEDICAL ONCOLOGY, [address] [place] [address] Medical Oncologist/Hematologis t Hematology and Oncology 09/26/21 documented as of this encounter
--- OUTSIDE RECORDS SUMMARY | 2024-07-18 20:29 | XMS_ITS | Encounter Summary ---
Author Organization [facility] Healthcare Address [address] [place] [address] Care Team Providers Care Dye Range Feeder Name Role Phone Starr Bran Primary Care Provider [phone] Bibiana Schuler MD Unavailable [phone] Cornelius Garcia DO Unavailable [phone] Reason for Visit * Auth/Cert (Routine) Specialty Diagnoses / Procedures Referred By Hung t Referred To Contact Diagnoses VASCULAR ECTASIA OF GASTRIC ANTRUM Procedures VA ESOPHAGOGASTRODUODENOSCOPY TRANSORAL DIAGNOSTIC ESOPHAGOGASTRODUODENOSCOPY Referral ID Status Reason Start Date Expiration Date Visits Re quested Visits Authorized [id number] 1 1 Encounter Details Date Type Department Care Team (Latest Contact Info) Description 12/07/2022 10:04 AM CDT - 12/07/2022 12:20 PM CDT Hospital Encounter [facility] [address] [place] [address] Bibiana Schuler MD [address] [facility] [address] [place] [address] Discharge Disposition: Discharge to home or self [...] on file Legal Sex Female 10:31 AM MEDICAL RECEPTIONIST BILLER Gender Identity Female 02/02/2021 7:25 AM CDT [...] 1,000 mcg 1,000 mcg intramuscular Q30 Days ShawnaR. Shant, [place] 1,000 mcg at 12/05/22 0902 Medications [...] - 12/07/2022 11:04 AM CDTAssociated Order(s): EGD [facility] GI ENDOSCOPY Patient Name: Viktoriya Bell Procedure Date: 12/07/2022 11:04 AM Date of : 1965 Admit Type: Outpatient Age: 57 Gender: Female Attending MD: Bibiana Schuler M.D. Room: [facility] ENDOSCOPY ROOM 05 Note Status: Finalized Procedure: [...] On: 12/07/2022 11:04 AM Recognized by the [employer] for promoting quality in endoscopy documented in this encounter Miscellaneous Notes * Pre-Procedure Instructions - Brissa Donaldson RN - 11/28/2022 1:40 PM CDT - No alcohol or smoking 12 hours before surgery - [place] teeth in the morning but don't swallow [...] am - Covid: no testing needed Location ([facility] Building 1 Entrance A, [address] [place] [address]), arrival time (1130), procedure time (1230), NPO [...] Schuler MD - 12/07/2022 11:04 AM CDT [facility] GI ENDOSCOPY Patient Name: Viktoriya Bell Procedure Date: 12/07/2022 11:04 AM Date of : 1965 Admit Type: Outpatient Age: 57 Gender: Female Attending MD: Bibiana Schuler M.D. Room: [facility] ENDOSCOPY ROOM 05 Note Status: Finalized Procedure: [...] On: 12/07/2022 11:04 AM Recognized by the [employer] for promoting quality in endoscopy Bibiana Schuler MD ENDOSCOPY PROCEDURES Soc[place] Result * (ABNORMAL) POC Blood Gas and Chemistries, Venous - (12/07/2022 10:44 AM CDT) pH,trudy POC 7.42 7.32 - 7.43 [facility] pCO2, trudy POC 37(L) 40 - 50 mmHg [facility] pO2,trudy POC 53 mmHg [facility] Comment: Interpretive Data No reference range established. Current interpretive data was last revised 2020. HCO3, trudy (Calc) POC 24 20 - 30 mmol/L [facility] Base excess, trudy POC 0 mmol/L [facility] Comment: Interpretive Data No reference range established. Current interpretive data was last revised 2020. Hemoglobin, trudy POC 10.9(L) 11.9 - 15.5 g/dL [facility] Hematocrit, trudy POC 32.0(L) 35.6 - 45.5 % [facility] Sodium, trudy POC 142 135 - 145 mmol/L [facility] Potassium, trudy POC 4.1 3.3 - 4.9 mmol/L [facility] Comment: Interpretive Data This method is not able to assess for hemolysis, which may falsely increase potassium concentrations. If further testing is needed to evaluate this result, consider in-laboratory plasma potassium. Current Interpretive Data was last revised on 2022. Glucose, trudy POC 101 70 - 199 mg/dL [facility] Ionized Calcium, trudy POC 5.10 4.50 - 5.20 mg/dL [facility] Blood 12/07/2022 10:4 4 AM CDT 12/07/2022 10:44 AM CDT Bibiana Schuler MD LAB POCT ORDERABLES - DEV ICE Final [facility] [address] [facility] Department [place] [address] * ECG 12 lead (12/07/2022 10:24 AM CDT) Ventricular Rate EKG/Min 76 BPM [facility] Atrial Rate 76 BPM [facility] VA-Interval (MSEC) 144 ms [facility] QRS-Interval (MSEC) 98 ms [facility] QT-Interval (MSEC) 408 ms [facility] QTc 459 ms [facility] P [place] 43 degrees [facility] R [place] 9 degrees [facility] T [place] 56 degrees [facility] Diagnosis Normal sinus rhythm Normal ECG When compared with ECG of 31-OCT-2020 17:01, Nonspecific T wave abnormality no longer evident in Lateral leads [facility] 12/07/2022 10:2 4 AM CDT 12/07/2022 2:31 PM CDT us Tommy Spaulding MD ECG ORDERABLES Final Result [facility] documented in this encounter Visit Diagnoses Not [...] 12/07/2022 documented in this encounter Care Teams Dye Range Feeder Relationship Specialty Start Date End Date Starr Bran PA [address] [place], [place] [id number] PCP - General Internal Medicine 12/30/18 Bibiana Schuler MD [address] [place] [address] Consulting Physician Gastroenterology 05/11/21 Cornelius Garcia DO [address] [place] [address] MEDICAL ONCOLOGY, [address] [place], [place] [address] Medical Oncologist/Hematologis t Hematology and Oncology 09/26/21 documented as of this encounter
--- OUTSIDE RECORDS SUMMARY | 2024-07-18 20:30 | XMS_ITS | Encounter Summary ---
Author Organization [facility] Healthcare Address [address] [place] [address] Care Team Providers Care Brusher Name Role Phone Starr Bran Primary Care Provider [phone] Bibiana Schuler MD Unavailable [phone] Cornelius Garcia DO Unavailable [phone] Encounter Details Date Type Department Care Team (Late st Contact Info) Description 09/17/2022 Orders Only [address] [address] Shira Smith RN Social History Tobacco Use Types Packs/Day Years Used Date Smoking Tobacco: Never Smokeless Tobacco: Never AUDIT-C Answer Date Recorded Q1: How often do you have a drink containing alc ohol? Monthly or less 09/04/2022 Q2: How many drinks containi ng alcohol do you have on a typical day when you are drinking? 1 or 2 09/04/2022 Q3: How often do you have si x or more drinks on one occasion? 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 Gender Identity Female 02/02/2021 7:25 AM CDT Sexual Orientation Straight 02/02/2021 7: 25 AM CDT documented as of this encounter Plan of Treatment Not on file documented as of this encounter Visit Diagnoses Not on filedocumented in this encounter Care Teams Brusher Relationship Specialty Start Date End Date Starr Bran PA [address] [place] [address] PCP - General Internal Medicine 12/30/18 Bibiana Schuler MD [address] [place] [address] Consulting Physician Gastroenterology 05/11/21 Cornelius Garcia DO [address] [place] [address] MEDICAL ONCOLOGY, [facility] [address] [place] [address] Medical Oncologist/Hematologis t Hematology and Oncology 09/26/21 documented as of this encounter
--- OUTSIDE RECORDS SUMMARY | 2024-07-18 20:30 | XMS_ITS | Encounter Summary ---
Author Organization [facility] Address [address] [facility] [address] [place] [address] Phone Care Team Providers Care Electric Pile Driver Operator Name Role Phone Starr Bran Primary Care Provider [phone] Bibiana Schuler MD Unavailable [phone] Cornelius Garcia DO Unavailable [phone] Encounter Details Date Type Department Care Team (Late st Contact Info) Description 08/02/2022 9:15 AM SURVEY OPERATIONS DIRECTOR Lab [facility] Oncology [address] [place] [address] [place] [phone] Iron deficiency anemia due to chronic blood loss Social History Tobacco Use Types Packs/Day Years Used Date Smoking Tobacco: Never Smokeless Tobacco: Never AUDIT-C Answer Date Recorded Q1: How often do you have a drink containing alc ohol? Monthly or less 03/15/2022 Q2: How many drinks containi ng alcohol do you have on a typical day when you are drinking? 1 or 2 03/15/2022 Q3: How often do you have si x or more drinks on one occasion? Never 03/15/2022 PHQ-2 Answer Date Recorded PHQ-2 Total Score (If total score is 3 or more points, staff should administer the PHQ-9) 0 07/31/2022 Comments Unknown Sex and Gender Information Value Date Recorded Sex Assigned at Not on file Legal Sex Female 10:31 AM SURVEY OPERATIONS DIRECTOR Gender Identity Female 02/02/2021 7:25 AM CDT [...] rst Ordered Date ONCBCN LAB APPOINTMENT 1 08/02/2022 documented in this encounter Care Teams Electric Pile Driver Operator Relationship Specialty Start Date End Date Starr Bran PA [address] [place] [address] PCP - General Internal Medicine 12/30/18 Bibiana Schuler MD [address] [place] [address] Consulting Physician Gastroenterology 05/11/21 Cornelius Garcia DO [address] [place] [address] MEDICAL ONCOLOGY, [facility] [address] [place] [address] Medical Oncologist/Hematologis t Hematology and Oncology 09/26/21 documented as of this encounter
--- OUTSIDE RECORDS SUMMARY | 2024-07-18 20:30 | XMS_ITS | Encounter Summary ---
Author Organization [facility] Healthcare Address [address] [place] [address] Care Team Providers Care Press Box Custodian Name Role Phone Starr Bran Primary Care Provider [phone] Bibiana Schuler MD Unavailable [phone] Cornelius Garcia DO Unavailable [phone] Reason for Visit * Episode Based Medications (Routine) - Closed Specialty Diagnoses / Procedures Referred By Contac t Referred To Contact Diagnoses Anemia, unspecified type [address] [address] Phone: tel: fax: [address] [address] Phone: tel: fax: Referral ID Status Reason Start Date Expiration Date Visits Re quested Visits Authorized [id number] Closed 09/06/2022 10/06/2023 1 1 Encounter Details Date Type Department Care Team (Latest Contact Info) Description 09/10/2022 2:00 PM INVAS TECH - 09/10/2022 11:59 PM INVAS TECH Hospital Encounter [address] [address] Iron deficiency anemia due to chronic blood loss (Primary Dx); Anemia, unspecified type Discharge Disposition: Discharge to home or self [...] on file Legal Sex Female 10:31 AM INVAS TECH Gender Identity Female 02/02/2021 7:25 AM CDT Sexual Orientation Straight 02/02/2021 7: 25 AM CDT documented as of this encounter Last Filed Vital Signs Vital Sign Reading Time Taken Comments Blood Pressure 128/86 09/10/2022 3:25 PM INVAS TECH Pulse 90 09/10/2022 3:25 PM INVAS TECH Temperature 36.7 ??C (98.1 ??F) 09/10/2022 3:25 PM CS T Respiratory Rate 16 09/10/2022 3:25 PM INVAS TECH Oxygen Saturation 100% 09/10/2022 3:25 PM INVAS TECH Inhaled Oxygen Concentration - - Weight - [...] 12/11/2023 lisinopriL (PRINIVIL,ZESTRI L) 10 mg tablet TAKE 1 TABLET DAILY 90 tablet 3 04/24/2022 10/06/2022 sucralfate (CARAFATE) 1 gram tablet Take 1 g by mouth 2 (two) times a day with lunch and bedtime 12/07/2022 venlafaxine XR (EFFEXOR-XR) 75 mg 24 hr [...] to blood loss (chronic) Anemia, unspecified type documented in this encounter Administered Medications Inactive Administered Medications - up to 3 most recent administrations Medication Order MAR Action Action Date Dose Rate Site ferumoxytoL (FERAHEME) 510 mg in sodium chloride 0.9% 100 mL IVPB 510 mg, intravenous, at 468 mL/hr, Administer over 15 Minutes, Once, On Sat09/10/22 at 1445, For 1 dose, 1. Add 510mg (17ml) of Feraheme to a 100ml NS bag. 2. Measure BP and pulse 2 minutes after starting infusion and then every 15 minutes times 3. 3. Saline Lock IV when infusion is complete.Indications:Anemi a, unspecified type New Bag 09/10/2022 2:30 PM INVAS TECH 510 mg 468 mL/hr Left Hand sodium chloride 0.9% flush 10 mL 10 mL, intravenous, As needed, line care, Starting on Sat09/10/22 at 1414, Flush pre and post IV catheter use.Indications:Anemia, unspecified type Given 09/10/2022 2:52 PM INVAS TECH 10 mL documented in this encounter Orders Medications Ordered That Sonido ht Not Have Been Administered Count Last Ordered Date First Ordered Date diphenhydrAMINE (BENADRYL) injection 25 mg 1 09/10/2022 diphenhydrAMINE (BENADRYL) injection 50 mg 1 09/10/2022 diphenhydrAMINE (BENADRYL) tab/cap 25 mg 1 09/10/2022 EPINEPHrine 1 mg/mL preserva tive free injection 0.3 mg 1 09/10/2022 famotidine (PEPCID) injection 20 mg 2 09/10 meperidine (DEMEROL) preserv ative free injection 25 mg 1 09/10/2022 methylPREDNISolone sodium mayorga ccinate (SOLU-medrol) preservative free injection 125 mg 2 09/10/2022 sodium chloride 0.9% bolus 500 mL 1 023 Nursing Count Last Ordered Date First Orde red Date ONCBCN NURSING COMMUNICATION [id number] 0 09/10/2022 VITAL SIGNS 3 09/10/2022 documented in this encounter Care Teams Press Box Custodian Relationship Specialty Start Date End Date Starr Bran PA [address] [place], [place] [id number] PCP - General Internal Medicine 12/30/18 Bibiana Schuler MD [address] [place], [place] [id number] Consulting Physician Gastroenterology 05/11/21 Cornelius Garcia DO [address] [place] [address] MEDICAL ONCOLOGY, [facility] [address] [place] [address] Medical Oncologist/Hematologis t Hematology and Oncology 09/26/21 documented as of this encounter
--- OUTSIDE RECORDS SUMMARY | 2024-07-18 20:30 | XMS_ITS | Encounter Summary ---
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 Gender Identity Female 02/02/2021 7:25 AM CDT Sexual Orientation Straight 02/02/2021 7: 25 AM CDT documented as of this encounter Plan of Treatment Not on file documented as of this encounter Visit Diagnoses Not on filedocumented in this encounter Care Teams Merchandise Appraiser Relationship Specialty Start Date End Date Starr Bran PA [address] [place] [address] PCP - General Internal Medicine 12/30/18 Bibiana Schuler MD [address] [place] [address] Consulting Physician Gastroenterology 05/11/21 Cornelius Garcia DO [address] [place] [address] MEDICAL ONCOLOGY, [facility] [address] [place] [address] Medical Oncologist/Hematologis t Hematology and Oncology 09/26/21 documented as of this encounter
--- OUTSIDE RECORDS SUMMARY | 2024-07-18 20:30 | XMS_ITS | Encounter Summary ---
Author Organization [facility] Healthcare Address [address] [place] [address] Care Team Providers Care Skirt Panel Assembler Name Role Phone Starr Bran Primary Care Provider [phone]- [phone] Bibiana Schuler MD Unavailable [phone] Cornelius Garcia DO Unavailable [phone] Encounter Details Date Type Department Care Team (Late st Contact Info) Description 08/02/2022 9:30 AM CORN CUTTER OPERATOR Lab [facility] Lab [address] [place] [id number] Iron deficiency anemia due to chronic blood [...] on file Legal Sex Female 10:31 AM CORN CUTTER OPERATOR Gender Identity Female 02/02/2021 7:25 AM CDT Sexual Orientation Straight 02/02/2021 7: 25 AM CDT documented as of this encounter Plan of Treatment Not on file documented as of this encounter Procedures Procedure Name Priority Date/Time Associated Diagnosis Comments DIFFERENTIAL AUTO Routine 08/02/2022 9:2 3 AM CORN CUTTER OPERATOR Iron deficiency anemia due to chronic blood loss IRON PROFILE W/ IBC Routine 08/02/2022 9 :23 AM CORN CUTTER OPERATOR Iron deficiency anemia due to chronic blood loss CBC WITH AUTO DIFFERENTIAL Routine 08/02/2022 9:23 AM CORN CUTTER OPERATOR Iron deficiency anemia due to chronic blood loss FERRITIN Routine 08/02/2022 9:23 AM CORN CUTTER OPERATOR Iron deficiency anemia due to chronic blood loss documented in this encounter Results * (ABNORMAL) Differential, auto (08/02/2022 9:23 AM CORN CUTTER OPERATOR) Neutrophil abs 2.7 1.7 - 6.5 K/cumm [facility] Comment:Testing performed by : [address] [address] Lymphocyte abs 0.6(L) 0.8 - 3.3 K/cumm [facility] Comment:Testing performed by : [address] [address] Monocyte abs 0.3 0.2 - 0.8 K/cumm [facility] Comment:Testing performed by : [address] [address] Neutrophil pct 74.9 % [facility] Comment: Interpretive Data Percent cell count reference ranges are not reported, since discordance with absolute values may lead to misinterpretation of CBC data. Current Interpretive Data was last revised on 2017. Testing performed by: [address] [address] Imm gran pct 0.3 % [facility] Comment: Interpretive Data Percent cell count reference ranges are not reported, since discordance with absolute values may lead to misinterpretation of CBC data. Current Interpretive Data was last revised on 2017. Testing performed by: [address] [address] Lymphocyte pct 17.8 % [facility] GARCIA Comment: Interpretive Data Percent cell count reference ranges are not reported, since discordance with absolute values may lead to misinterpretation of CBC data. Current Interpretive Data was last revised on 2017. Testing performed by: [address] [address] Monocyte pct 7.0 % [facility] GARCIA Comment: Interpretive Data Percent cell count reference ranges are not reported, since discordance with absolute values may lead to misinterpretation of CBC data. Current Interpretive Data was last revised on 2017. Testing performed by: [address] [address] Blood 08/02/2022 9:23 AM CORN CUTTER OPERATOR 08/02/2022 9:24 AM CORN CUTTER OPERATOR us Cornelius Garcia DO LAB BLOOD ORDERABLES Final R esult [facility] GARC[facility] [place] [address] * (ABNORMAL) CBC with auto differential (08/02/2022 9:23 AM CORN CUTTER OPERATOR) WBC 3.6(L) 3.8 - 9.9 K/cumm [facility] GARCIA Comment:Testing performed by : [address] [address] Hgb 10.3(L) 11.9 - 15.5 g/dL [facility] GARCIA Comment:Testing performed by : [address] [address] Hct 32.6(L) 35.6 - 45.5 % [facility] GARCIA Comment:Testing performed by : [address] [address] Plt 205 150 - 400 K/cumm [facility] GARCIA Comment:Testing performed by : [address] [address] MPV 9.5 9.1 - 12.3 fL [facility] GARCIA Comment:Testing performed by : [address] [address] RBC 3.66(L) 3.90 - 5.20 M/cumm [facility] GARCIA Comment:Testing performed by : [facility], [address] [place] [address]., [address] MCV 89.1 81.3 - 96.4 fL [facility] GARCIA Comment:Testing performed by : [address] [address] MCH 28.1 27.1 - 33.3 pg [facility] GARCIA Comment:Testing performed by : [address] [address] MCHC 31.6(L) 32.3 - 35.7 g/dL [facility] GARCIA Comment:Testing performed by : [address] [address] RDW CV 15.1(H) 11.1 - 14.9 % [facility] GARCIA Comment:Testing performed by : [address] [address] RDW SD 49.1(H) 35.7 - 48.1 fL [facility] Comment:Testing performed by : [address] [address] Blood 08/02/2022 9:23 AM CORN CUTTER OPERATOR 08/02/2022 9:24 AM CORN CUTTER OPERATOR Cornelius Garcia DO LAB BLOOD ORDERABLES Final R esult [facility] Department [place] [address] * (ABNORMAL) Iron profile w/ IBC (08/02/2022 9:23 AM CORN CUTTER OPERATOR) Iron 55 35 - 145 mcg/dL [facility] GARCIA Comment:Testing performed by : [address] [address] TIBC 331 250 - 400 mcg/dL [facility] GARCIA Comment:Testing performed by : [address] [address] Transferrin saturation 17(L) 20 - 50 % [facility] Comment:Testing performed by : [address] [address] Blood 08/02/2022 9:23 AM CORN CUTTER OPERATOR 08/02/2022 10:20 AM CORN CUTTER OPERATOR us Cornelius Garcia DO LAB BLOOD ORDERABLES Final R esult Performing Organization Address City/[facility]/ZIP Co de Phone Number [facility] [address] [place] [address] * Ferritin (08/02/2022 9:23 AM CORN CUTTER OPERATOR) Ferritin 40 15 - 150 ng/mL [facility] Comment:Testing performed by : [facility], [address] [place] [address], [place]., [address] Blood 08/02/2022 9:23 AM CORN CUTTER OPERATOR 08/02/2022 10:20 AM CORN CUTTER OPERATOR Cornelius Garcia DO LAB BLOOD ORDERABLES Final R esult Performing Organization Address City/[facility] Co de Phone Number [facility] [place] [address] documented in this encounter Visit Diagnoses Diagnosis Iron deficiency anemia due to chronic blood loss Iron deficiency anemia secondary to blood loss (chronic) documented in this encounter Care Teams Skirt Panel Assembler Relationship Specialty Start Date End Date Starr Bran PA [address] [place] [address] PCP - General Internal Medicine 12/30/18 Bibiana Schuler MD [address] [place] [address] Consulting Physician Gastroenterology 05/11/21 Cornelius Garcia DO [address] [facility] MEDICAL ONCOLOGY, [address] [place] [address] Medical Oncologist/Hematologis t Hematology and Oncology 09/26/21 documented as of this encounter
--- OUTSIDE RECORDS SUMMARY | 2024-07-18 20:30 | XMS_ITS | Encounter Summary ---
Author Organization [facility] Healthcare Address [address] [place] [address] Care Team Providers Care Jewelry Salesperson Name Role Phone Starr Bran Primary Care Provider [phone] Bibiana Schuler MD Unavailable Cornelius Garcia DO Unavailable [phone] Encounter Details Date Type Department Care Team (Late st Contact Info) Description 09/06/2022 Orders Only [address] [address] Nathalia Cox, RN Social History Tobacco Use Types Packs/Day [...] on file Legal Sex Female 10:31 AM CORPORATE OPERATIONS COMPLIANCE MANAGER Gender Identity Female 02/02/2021 7:25 AM CDT Sexual Orientation Straight 02/02/2021 7: 25 AM CDT documented as of this encounter Plan of Treatment Not on file documented as of this encounter Visit Diagnoses Not on filedocumented in this encounter Care Teams Jewelry Salesperson Relationship Specialty Start Date End Date Starr Bran PA [address] [place] [address] PCP - General Internal Medicine 12/30/18 Bibiana Schuler MD [address] [facility] [address] [place] [address] Consulting Physician Gastroenterology 05/11/21 Cornelius Garcia DO [address] [place] [address] MEDICAL ONCOLOGY, [facility] [address] [place] [address] Medical Oncologist/Hematologis t Hematology and Oncology 09/26/21 documented as of this encounter
--- OUTSIDE RECORDS SUMMARY | 2024-07-18 20:30 | XMS_ITS | Encounter Summary ---
Author Organization [facility] Address [address] [facility] [address] [place] [address] Care Team Providers Care Derrick Worker Well Service Name Role Phone Starr Bran Primary Care Provider [phone] Bibiana Schuler MD Unavailable [phone] Cornelius Garcia DO Unavailable [phone] Reason for Visit * Reason Comments B12 Injection Encounter Details Date Type Department Care Team (Latest Contact Info) Description 09/04/2022 9:00 AM REAL ESTATE TRANSACTION COORDINATOR Clinical Support [facility] Family Medicine [address] [facility] [address] [place] [address] Low vitamin B12 level (Primary [...] on file Legal Sex Female 10:31 AM REAL ESTATE TRANSACTION COORDINATOR Gender Identity Female 02/02/2021 7:25 AM CDT Sexual Orientation Straight 02/02/2021 7: 25 AM CDT documented as of this encounter Last Filed Vital Signs Vital Sign Reading Time Taken Comments Blood Pressure - - Pulse - - Temperature - - Respiratory Rate - - Oxygen Saturation - - Inhaled Oxygen Concentration - - Weight - - Height 160 cm (5' 3 ) 09/04/2022 8:58 AM REAL ESTATE TRANSACTION COORDINATOR Body Mass Index - - documented in this encounter Plan of Treatment Not on file documented as of this encounter Visit Diagnoses Diagnosis Low vitamin B12 level- Primary documented in this encounter Orders Medications Ordered That Sonido ht Not Have Been Administered Count Last Ordered Date First Ordered Date cyanocobalamin (Vitamin B-12 ) injection 1,000 mcg 1 09/04/2022 documented in this encounter Care Teams Derrick Worker Well Service Relationship Specialty Start Date End Date Starr Bran PA [address] [place] [address] PCP - General Internal Medicine 12/30/18 Bibiana Schuler MD [address] [place] [address] Consulting Physician Gastroenterology 05/11/21 Cornelius Garcia DO [address] [place] [address] MEDICAL ONCOLOGY, [facility] [address] [place] [address] Medical Oncologist/Hematologis t Hematology and Oncology 09/26/21 documented as of this encounter
--- OUTSIDE RECORDS SUMMARY | 2024-07-18 20:30 | XMS_ITS | Encounter Summary ---
Author Organization [facility] Healthcare Address [address] [place] [address] Care Team Providers Care Neon Light Installer Name Role Phone Starr Bran Primary Care Provider [phone] Bibiana Schuler MD Unavailable [phone] Cornelius Garcia DO Unavailable [phone] Reason for Visit * Episode Based Medications (Routine) - Closed Specialty Diagnoses / Procedures Referred By Contac t Referred To Contact Diagnoses Anemia, unspecified type [address] [address] Phone: tel: fax: [address] [address] Phone: tel: fax: Referral ID Status Reason Start Date Expiration Date Visits Re quested Visits Authorized [id number] Closed 09/06/2022 10/06/2023 1 1 Encounter Details Date Type Department Care Team (Latest Contact Info) Description 09/17/2022 11:00 AM SEED SORTER - 09/17/2022 11:59 PM SEED SORTER Hospital Encounter [address] [address] Anemia, unspecified type (Primary Dx) Discharge Disposition: Discharge to home or self [...] on file Legal Sex Female 10:31 AM SEED SORTER Gender Identity Female 02/02/2021 7:25 AM CDT Sexual Orientation Straight 02/02/2021 7: 25 AM CDT documented as of this encounter Last Filed Vital Signs Vital Sign Reading Time Taken Comments Blood Pressure 132/80 09/17/2022 12:00 PM SEED SORTER Pulse 78 09/17/2022 12:00 PM SEED SORTER Temperature 36.3 ??C (97.3 ??F) 09/17/2022 11:[address] Respiratory Rate 16 09/17/2022 11:10 AM SEED SORTER Oxygen Saturation 99% 09/17/2022 11:10 AM SEED SORTER Inhaled Oxygen Concentration - - Weight - [...] as of this encounter Visit Diagnoses Diagnosis Anemia, unspecified type- Primary documented in this encounter Administered Medications Inactive Administered Medications - up to 3 most recent administrations Medication Order MAR Action Action Date Dose Rate Site ferumoxytoL (FERAHEME) 510 mg in sodium chloride 0.9% 100 mL IVPB 510 mg, intravenous, at 468 mL/hr, Administer over 15 Minutes, Once, On 09/17/22 at 1145, For 1 dose, 1. Add 510mg (17ml) of Feraheme to a 100ml NS bag. 2. Measure BP and pulse 2 minutes after starting infusion and then every 15 minutes times 3. 3. Saline Lock IV when infusion is complete.Indications:Anemia, unspecified type New Bag 09/17/2022 11:22 AM SEED SORTER 510 mg 468 mL/hr documented in this encounter Orders Medications Ordered That Sonido ht Not Have Been Administered Count Last Ordered Date First Ordered Date diphenhydrAMINE (BENADRYL) injection 25 mg 1 09/17/2022 diphenhydrAMINE (BENADRYL) injection 50 mg 1 09/17/2022 EPINEPHrine 1 mg/mL preserva tive free injection 0.3 mg 1 09/17/2022 famotidine (PEPCID) injection 20 mg 2 09/17 meperidine (DEMEROL) preserv ative free injection 25 mg 1 09/17/2022 methylPREDNISolone sodium mayorga ccinate (SOLU-medrol) preservative free injection 125 mg 1 09/17/2022 sodium chloride 0.9% bolus 500 mL 1 023 sodium chloride 0.9% flush 10 mL 1 09/17/19 Nursing Count Last Ordered Date First Orde red Date ONCBCN NURSING COMMUNICATION [id number] 0 09/17/2022 VITAL SIGNS 2 09/17/2022 documented in this encounter Care Teams Neon Light Installer Relationship Specialty Start Date End Date Starr Bran PA [address] [place] [address] PCP - General Internal Medicine 12/30/18 Bibiana Schuler MD [address] [facility] 500 [place] [address] Consulting Physician Gastroenterology 05/11/21 Cornelius Garcia DO [address] [place] [address] MEDICAL ONCOLOGY, [facility] [address] [place] [address] Medical Oncologist/Hematologis t Hematology and Oncology 09/26/21 documented as of this encounter
--- OUTSIDE RECORDS SUMMARY | 2024-07-18 20:30 | XMS_ITS | Encounter Summary ---
Author Organization [facility] Address [address] [address] Care Team Providers Care Dietary Worker Name Role Phone Starr Bran Primary Care Provider [phone] Bibiana Schuler MD Unavailable [phone] Cornelius Garcia DO Unavailable [phone] Reason for Visit * Reason Comments Follow-up Encounter Details Date Type Department Care Team (Late st Contact Info) Description 07/31/2022 8:30 AM LOBSTER FISHERMAN Office Visit [facility] Family Medicine [address] [facility] [address] [place] [address] Starr Bran PA [address] [facility] [address] [place] [address] Fatigue, unspecified type (Primary Dx); Essential hypertension; Vasomotor symptoms due to menopause; Moderate episode of recurrent major depressive disorder (HCC); Low vitamin B12 level; Iron deficiency anemia due to chronic blood loss; Hyperglycemia; Vitamin D deficiency; BMI 36.0-36.9,adult; Morbid obesity (CMS/HCC) (HCC) Social History Tobacco Use Types Packs/Day [...] on file Legal Sex Female 10:31 AM LOBSTER FISHERMAN Gender Identity Female 02/02/2021 7:25 AM CDT Sexual Orientation Straight 02/02/2021 7: 25 AM CDT documented as of this encounter Last Filed Vital Signs Vital Sign Reading Time Taken Comments Blood Pressure 140/88 07/31/2022 8:29 AM LOBSTER FISHERMAN Pulse 90 07/31/2022 8:29 AM LOBSTER FISHERMAN Temperature 36.7 ??C (98 ??F) 07/31/2022 8:29 AM LOBSTER FISHERMAN Respiratory Rate 16 07/31/2022 8:29 AM LOBSTER FISHERMAN Oxygen Saturation 99% 07/31/2022 8:29 AM LOBSTER FISHERMAN Inhaled Oxygen Concentration - - Weight 94.3 kg (207 lb 12.8 oz) 07/31/2022 8:29 AM LOBSTER FISHERMAN Height - - Body Mass Index 36.81 06/25/2022 8:14 AM LOBSTER FISHERMAN documented in this encounter Progress Notes * Starr Bran PA - 07/31/2022 8:30 AM CST Images from the original note were not included. Subjective/Objective Patient ID: Viktoriya Bell is a 57 y.o. female. Chief Complaint Follow-up HPI Patient presents to followup chronic concerns. Anemia - FeSo4 bid and Vitamin C and monthly b12 Dr. Garcia -- 3 Iron infusion done in mid May. Thought she was feeling better --- Feels like she is constantly rollarcoasting -- her anemia continues to go up and down after the infusions. GI Dr. 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 Started on Prilosec and Sulcrafate. Has Liver US ordered as cirrhosis can be underlying reason for GAVE Vasomotor sxs -- Effexor 225mg daily increased in November and saw improvement but now feels like sxs are returning. Status post HYST 07/2021 -- NO bleeding or problems since. 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 [...] Diagnoses and all orders for this visit: Fatigue, unspecified type (R53.83) (Primary) Assessment & Plan: Probably multifactorial. Check labs and followup to re-evaluate Essential hypertension (I10) Assessment & Plan: Bp is stable/in acceptable range for any co-morbidities. Encouraged to limit sodium intake and exercise for weight control. 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 Continue per Dr. Schuler. She has this watermelon stomach. His office is ordering a liver ultrasound to rule out any type of cirrhotic type changes. She was started on Prilosec and sucralfate and will follow-up in a few months to reassess. Patient statesstomach ablation was also discussed. Will await their recommendation as she continues to have persistent anemia that is corrected with infusions but then declines again and with this cycling is having anemic symptoms and is feeling horrible. Hyperglycemia (R73.9) Assessment & Plan: Check labs Vitamin D deficiency (E55.9) Assessment & Plan: Supplement BMI 36.0-36.9,adult (Z68.36) Assessment & Plan: Discussed the patient's BMI. The BMI is above average. BMI management plan is completed. BMI Follow-up includes: nutrition counseling, exercise counseling and education provided. Morbid obesity (CMS/HCC) (HCC) (E66.01) Assessment & Plan: Discussed the patient's BMI. The BMI is above average. BMI management plan is completed. BMI Follow-up includes: nutrition counseling, exercise counseling and education provided. *This note is dictated using [employer] voice recognition software, variances in spelling and vocabulary are possible and unintentional.* Starr Bran PA-C Cosigned by Moiz Mondragon MD at 07/31/2022 4:27 PM LOBSTER FISHERMAN TER FISHERMAN TER FISHERMAN documented in this encounter Miscellaneous Notes * Assessment & Plan Note - Starr Bran PA - 07/31/2022 3:14 PM LOBSTER FISHERMAN Associated Problem(s): BMI 36.0-36.9,adult (Resolved 10/04/2022) Discussed the patient's BMI. The BMI is above average. BMI management plan is completed. BMI Follow-up includes: nutrition counseling, exercise counseling and education provided. TER FISHERMAN * Assessment & Plan Note - Starr Bran PA - 07/31/2022 3:14 PM LOBSTER FISHERMAN Associated Problem(s): Fatigue Probably multifactorial. Check labs and followup to re-evaluate TER FISHERMAN * Assessment & Plan Note - Starr Bran PA - 07/31/2022 3:14 PM LOBSTER FISHERMAN Associated Problem(s): Morbid obesity (HCC) (Resolved 10/04/2022) Discussed the patient's BMI. The BMI is above average. BMI management plan is completed. BMI Follow-up includes: nutrition counseling, exercise counseling and education provided. TER FISHERMAN * Assessment & Plan Note - Starr Bran PA - 07/31/2022 3:13 PM LOBSTER FISHERMAN Associated Problem(s): Vasomotor symptoms due to menopause Continue Effexor 225 daily TER FISHERMAN * Assessment & Plan Note - Starr Bran PA - 07/31/2022 3:13 PM LOBSTER FISHERMAN Associated Problem(s): Moderate episode of recurrent major depressive disorder (HCC) Continue with the Effexor 225 daily TER FISHERMAN * Assessment & Plan Note - Starr Bran PA - 07/31/2022 3:13 PM LOBSTER FISHERMAN Associated Problem(s): Low vitamin B12 level Continue monthly injections and monitor labs TER FISHERMAN * Assessment & Plan Note - Starr Bran PA - 07/31/2022 3:12 PM LOBSTER FISHERMAN Associated Problem(s): Iron deficiency anemia due to chronic blood loss Persistent anemia that appears to be GI related. Continue per Dr. Schuler. She has this watermelon stomach. His office is ordering a liver ultrasound to rule out any type of cirrhotic type changes. She was started on Prilosec and sucralfate and will follow-up in a few months to reassess. Patient statesstomach ablation was also discussed. Will await their recommendation as she continues to have persistent anemia that is corrected with infusions but then declines again and with this cycling is having anemic symptoms and is feeling horrible. TER FISHERMAN * Assessment & Plan Note - Starr Bran PA - 07/31/2022 3:12 PM LOBSTER FISHERMAN Associated Problem(s): Hyperglycemia Check labs TER FISHERMAN * Assessment & Plan Note - Starr Bran PA - 07/31/2022 3:12 PM LOBSTER FISHERMAN Associated Problem(s): Vitamin D deficiency Supplement TER FISHERMAN * Assessment & Plan Note - Starr Bran PA - 07/31/2022 3:11 PM LOBSTER FISHERMAN Associated Problem(s): Essential hypertension Bp is stable/in acceptable range for any co-morbidities. Encouraged to limit sodium intake and exercise for weight control. Continue lisinopril 10 TER FISHERMAN TER FISHERMAN documented in this encounter Plan of Treatment Not on file documented as of this encounter Visit Diagnoses Diagnosis Fatigue, unspecified type- Primary Essential hypertension Unspecified essential hypertension Vasomotor symptoms due to menopause Moderate episode of recurrent major depressive disorder (HCC) Low vitamin B12 level Iron deficiency anemia due to chronic blood loss Iron deficiency anemia secondary to blood loss (chronic) Hyperglycemia Other abnormal glucose Vitamin D deficiency BMI 36.0-36.9,adult Morbid obesity (HCC) Morbid obesity documented in this encounter Administered Medications Inactive Administered Medications - up to 3 most recent administrations Medication Order MAR Action Action Date Dose Rate Site cyanocobalamin (Vitamin B-12) injection 1,000 mcg 1,000 mcg, intramuscular, Once, On Sat07/31/22 at 1000, For 1 doseIndications:Low vitamin B12 level Given 07/31/2022 9:20 AM LOBSTER FISHERMAN 1,000 mcg Left Deltoid documented in this encounter Historical Medications * This list may reflect changes made after this encounter. omeprazole (PriLOSEC) 20 mg capsule Take 2 capsules (40 mg total) by mouth daily sucralfate (CARAFATE) 1 gram tablet Take 1 g by mouth 2 (two) times a day with lunch and bedtime 12/07/2022 added in this encounter Care Teams Dietary Worker Relationship Specialty Start Date End Date Starr Bran PA [address] [place], [place] [id number] PCP - General Internal Medicine 12/30/18 Bibiana Schuler MD [address] [place], [place] [id number] Consulting Physician Gastroenterology 05/11/21 Cornelius Garcia DO [address] [place] [address] MEDICAL ONCOLOGY, [facility] [address] [place] [address] Medical Oncologist/Hematologis t Hematology and Oncology 09/26/21 documented as of this encounter
--- OUTSIDE RECORDS SUMMARY | 2024-07-18 20:30 | XMS_ITS | Encounter Summary ---
Author Organization [facility] Address [address] [facility] [address] [place] [address] Phone Care Team Providers Care Food Safety Scientist Name Role Phone Starr Bran Primary Care Provider [phone] Bibiana Schuler MD Unavailable [phone] Ani Villafana DO Unavailable [phone] Reason for Visit * Reason Comments Follow-up Encounter Details Date Type Department Care Team (Late st Contact Info) Description 08/02/2022 9:45 AM TRAVELING OPERATOR Office Visit [facility] [address] [phone] Ani Villafana DO [address] [place] [phone] Iron deficiency anemia due to chronic [...] on file Legal Sex Female 10:31 AM TRAVELING OPERATOR Gender Identity Female 02/02/2021 7:25 AM CDT Sexual Orientation Straight 02/02/2021 7: 25 AM CDT documented as of this encounter Last Filed Vital Signs Vital Sign Reading Time Taken Comments Blood Pressure 127/81 08/02/2022 9:36 AM TRAVELING OPERATOR Pulse 87 08/02/2022 9:36 AM TRAVELING OPERATOR Temperature 36.6 ??C (97.9 ??F) 08/02/2022 9:36 AM CS T Respiratory Rate 17 08/02/2022 9:36 AM TRAVELING OPERATOR Oxygen Saturation 100% 08/02/2022 9:36 AM TRAVELING OPERATOR Inhaled Oxygen Concentration - - Weight 95.3 kg (210 lb) 08/02/2022 9:36 AM TRAVELING OPERATOR w ith shoes Height 160 cm (5' 3 ) 08/02/2022 9:36 AM TRAVELING OPERATOR Body Mass Index 37.2 08/02/2022 9:36 AM TRAVELING OPERATOR documented in this encounter Progress Notes * Rose Skelton, SPEECH THERAPY ASSISTANT - 08/02/2022 9:45 AM CST Patient ID: Viktoriya Bell is a 57 y.o. female. Primary Care Provider: Starr Bran PA Assessment/Plan 1. Resolved iron deficiency anemia. 2. Status post total abdominal hysterectomy with bilateral salpingo oophorectomy 3. Postmenopausal syndrome Recommendations: 1. At this visit, she will continue with oral iron supplementation. 2. She is following up with Dr. Schuler in 08/2022 for her watermelon stomach. 3. She will continue with the venlafaxine medication for vasomotor symptoms. 4. Iron studies are pending. We will contact the patient when results are available if changes to the treatment plan are needed. My total encounter time on 08/02/2022 was 20 minutes which was spent in the activities documented in the note. This includes time spent prior to the visit and after the visit in direct care of the patient. This time does not include time spent in any separately reportable services. Patient Active Problem List Diagnosis Essential hypertension [...] salpingo-oophorectomy (BSO) Vasomotor symptoms due to menopause Morbid obesity (CMS/HCC) (HCC) BMI 36.0-36.9,adult Fatigue Diagnoses and all orders for this visit: Iron deficiency anemia due to chronic blood loss (Primary) - Clinic Appointment Request Follow up; ANI VILLAFANA MD; Clinic Appointment Location: [facility] ONC E2 180 - Lab Draw Appt Request Arm Draw or Central Line Draw? Arm; What is your ordering location? [facility] Onc/Hem/BMT; Where will this patient receive treatment? [facility]; Future - Clinic Appointment Request Follow up; ROSE SKELTON; Clinic Appointment Location: [facility] ONCE2 180; Future - CBC with auto differential; Future [...] iron supplementation once a day. 7. Her warp trucker performed laparoscopic hysterectomy with bilateral salpingo oophorectomy [...] carafate. She denies bloody or dark stools. Interval Notes: I have reviewed: allergies, current medications, past family history, past medical history, past social history, past surgical history and problem list HPI Review of Systems Constitutional: Positive for fatigue. Negative for appetite change and chills. HENT: Negative. Eyes: Negative. Respiratory: Negative. Cardiovascular: Negative. Gastrointestinal: Negative. Endocrine: Negative. Genitourinary: Negative. Musculoskeletal: Negative. Skin: Negative. Neurological: Negative. Hematological: Negative. Psychiatric/Behavioral: Positive for decreased concentration. The patient is nervous/anxious. Objective Physical Exam: Vital Signs for this encounter: BSA: 2.06 meters squared BP 127/81 (BP Location: Left arm) Pulse 87 Temp 36.6 ??C (97.9 ??F) (Oral) Resp 17 Ht 160 cm (5' 3 ) Wt 95.3 kg (210 lb) Comment: with shoes SpO2 100% BMI 37.20 kg/m?? Physical Exam Constitutional: Appearance: She is well-developed. HENT: Head: Normocephalic and atraumatic. Right Ear: External ear normal. Left Ear: External ear normal. Nose: Nose normal. Eyes: Conjunctiva/sclera: Conjunctivae normal. Pupils: Pupils are equal, round, and reactive to light. Cardiovascular: Rate and Rhythm: Normal rate and regular rhythm. Heart sounds: Normal heart sounds. Pulmonary: Effort: Pulmonary effort is normal. Breath sounds: Normal breath sounds. Abdominal: General: Bowel sounds are normal. Palpations: Abdomen is soft. Musculoskeletal: General: Normal range of motion. Cervical back: Normal range of motion and neck supple. Skin: General: Skin is warm and dry. Neurological: Mental Status: She is alert and oriented to person, place, and time. Psychiatric: Behavior: Behavior normal. Performance Status: Asymptomatic Results: WBC Date Value Ref Range Status 08/02/2022 3.6 (L) 3.8 - 9.9 K/cumm Final Comment: Testing performed by: [facility] [address] [address] 05/22/2022 3.3 (L) 3.4 - 10.8 x10E3/uL Final Hgb Date Value Ref Range Status 08/02/2022 10.3 (L) 11.9 - 15.5 g/dL Final Comment: Testing performed by: [address] [address] 05/22/2022 9.2 (L) 11.1 - 15.9 g/dL Final Hct Date Value Ref Range Status 08/02/2022 32.6 (L) 35.6 - 45.5 % Final Comment: Testing performed by: [address] [address] 05/22/2022 29.7 (L) 34.0 - 46.6 % Final Platelets Date Value Ref Range Status 05/22/2022 258 150 - 450 x10E3/uL Final Plt Date Value Ref Range Status 08/02/2022 205 150 - 400 K/cumm Final Comment: Testing performed by: [address] [address] Creatinine, Serum Date Value Ref Range Status 05/22/2022 0.61 0.57 - 1.00 mg/dL Final AST Date Value Ref Range Status 05/22/2022 23 0 - 40 IU/L Final Rose Skelton, BSN, MSN, AGPCNP-C Medical Oncology [facility] ELING OPERATOR documented in this encounter Plan of Treatment Not on file documented as of this encounter Results * (ABNORMAL) Iron profile w/ IBC (01/31/2023 7:56 AM CDT) Iron 54 35 - 145 mcg/dL LELAND GARCIA Comment:Testing performed by : [address] [address] TIBC 310 250 - 400 mcg/dL LELAND GARCIA Comment:Testing performed by : [address] [address] Transferrin saturation 17(L) 20 - 50 % LELAND GARCIA Comment:Testing performed by : [address] [address] Blood 01/31/2023 7:56 AM CDT 01/31/2023 9:51 AM CDT Ani Villafana DO LAB BLOOD ORDERABLES Final R esult Performing Organization Address City/[facility]/ZIP Co de Phone Number [address] [employer] [place] [address] * Ferritin (01/31/2023 7:56 AM CDT) Ferritin 31 15 - 150 ng/mL LLEAND Comment:Testing performed by : [address] [address] Blood 01/31/2023 7:56 AM CDT 01/31/2023 9:51 AM CDT Ani Villafana DO LAB BLOOD ORDERABLES Final R esult Performing Organization Address City/[facility] Co de Phone Number [address] [employer] [place] [address] * CBC with auto differential (01/31/2023 7:56 AM CDT) WBC 4.4 3.8 - 9.9 K/cumm LELAND GARCIA Comment:Testing performed by : [address] [address] Hgb 12.6 11.9 - 15.5 g/dL LELAND GARCIA Comment:Testing performed by : [address] [address] Hct 37.0 35.6 - 45.5 % LELAND GARCIA Comment:Testing performed by : [address] [address] Plt 200 150 - 400 K/cumm LELAND GARCIA Comment:Testing performed by : [address] [address] MPV 10.1 9.1 - 12.3 fL LELAND GARCIA Comment:Testing performed by : [address] [address] RBC 4.49 3.90 - 5.20 M/cumm LELAND Comment:Testing performed by : [address] [address] MCV 82.4 81.3 - 96.4 fL LELAND Comment:Testing performed by : [address] [address] MCH 28.1 27.1 - 33.3 pg LELAND Comment:Testing performed by : [address] [address] MCHC 34.1 32.3 - 35.7 g/dL LELAND Comment:Testing performed by : [address] [address] RDW CV 13.6 11.1 - 14.9 % LELAND Comment:Testing performed by : [address] [address] RDW SD 40.6 35.7 - 48.1 fL LELAND Comment:Testing performed by : [address] [address] Blood 01/31/2023 7:56 AM CDT 01/31/2023 8:05 AM CDT Ani Villafana DO LAB BLOOD ORDERABLES Final R esult Performing Organization Address City/State/[facility] Co de Phone Number LELAND [address] [facility] Department [place] [address] documented in this encounter Visit Diagnoses Diagnosis Iron deficiency anemia due to chronic blood loss- Primary Iron deficiency anemia secondary to blood loss (chronic) documented in this encounter Orders Appointment Requests Count Last Ordered Date Fi rst Ordered Date ONCBCN CLINIC APPOINTMENT REQUEST 2 023 08/02/2022 ONCBCN LAB APPOINTMENT 1 01/31/2023 documented in this encounter Care Teams Food Safety Scientist Relationship Specialty Start Date End Date Starr Bran PA [address] [place] [address] PCP - General Internal Medicine 12/30/18 Bibiana Schuler MD [address] [facility] [address] [place] [address] Consulting Physician Gastroenterology 05/11/21 Ani Villafana DO [address] [place] [address] MEDICAL ONCOLOGY, [facility] [address] [place] [address] Medical Oncologist/Hematologis t Hematology and Oncology 09/26/21 documented as of this encounter
--- OUTSIDE RECORDS SUMMARY | 2024-07-18 20:31 | XMS_ITS | Encounter Summary ---
Author Organization [facility] Address [address] [facility] [address] [place] [address] Phone Care Team Providers Care Environmental Geologist Name Role Phone Starr Bran Primary Care Provider [phone] Bibiana Schuler MD Unavailable [phone] Cornelius Garcia DO Unavailable [phone] Reason for Visit * Reason Comments OP Infusion * Episode Based Medications (Routine) - Closed Specialty Diagnoses / Procedures Referred By Hung gao Referred To Contact Diagnoses Iron deficiency anemia due to chronic blood loss Cornelius Garcia DO [facility] [address] Phone: tel: fax: [facility] Oncology [address] [place] [address] Phone: tel: fax: Referral ID Status Reason Start Date Expiration Date Visits Re quested Visits Authorized [id number] Closed 05/31/2022 06/30/2023 1 99 Encounter Details Date Type Department Care Team (Late st Contact Info) Description 06/15/2022 9:15 AM DRY CLEANING COUNTER CLERK Infusion [facility] Oncology [address] [place] [phone] Iron deficiency anemia due to chronic blood [...] more points, staff should administer the PHQ-9) 2 05/17/2022 Comments Unknown Sex and Gender Information Value Date Recorded Sex Assigned at Not on file Legal Sex Female 10:31 AM DRY CLEANING COUNTER CLERK Gender Identity Female 02/02/2021 7:25 AM CDT Sexual Orientation Straight 02/02/2021 7: 25 AM CDT documented as of this encounter Last Filed Vital Signs Vital Sign Reading Time Taken Comments Blood Pressure 129/73 06/15/2022 9:15 AM DRY CLEANING COUNTER CLERK Pulse 61 06/15/2022 9:15 AM DRY CLEANING COUNTER CLERK Temperature 36.5 ??C (97.7 ??F) 06/15/2022 9:15 AM CS T Respiratory Rate 17 06/15/2022 9:15 AM DRY CLEANING COUNTER CLERK Oxygen Saturation 99% 06/15/2022 9:15 AM DRY CLEANING COUNTER CLERK Inhaled Oxygen Concentration - - Weight 92.5 kg (204 lb) 06/15/2022 9:15 AM DRY CLEANING COUNTER CLERK w ithout shoes Height 160 cm (5' 3 ) 06/15/2022 9:15 AM DRY CLEANING COUNTER CLERK Body Mass Index 36.14 06/15/2022 9:15 AM DRY CLEANING COUNTER CLERK documented in this encounter Nursing Notes * Ladi Davenport, RN - 06/15/2022 9:15 AM CST Oncology Nursing Note [facility] ONCOLOGY Viktoriya Bell is a 57 y.o. female who presents for treatment #2 of Venofer. Pre-treatment Nursing Assessment Nursing Assessment Appetite: Good Diarrhea: No Constipation: No Existing Patients: Any falls since your last visit?: No Fatigue: Occassional Mouth Sores: No Nausea/Vomiting: No Neurological symptoms: No Pain: No Peripheral Neuropathy: No Shortness of Breath?: Yes (occasioally with activity) Skin Condition/Temp: Warm, Dry Swelling: No BP: 129/73 Temp: 36.5 ??C (97.7 ??F) Temp src: Oral Pulse: 61 Resp: 17 SpO2: 99 % Height: 160 cm (5' 3 ) Weight: 92.5 kg (204 lb) (without shoes) Treatment Patient: does not require labs today. Pre blood return: Jeferson Bell tolerated treatment well. Patient was frequently observed and monitored throughout the administration of their treatment. Additional Notes: Monitored for 30 minutes post infusion per protocol. Post blood return: Brisk IV access post infusion: NS Discharge Plan Discharge instructions given to patient. Future appointments given and reviewed with treatment plan. Discharge Mode: Ambulatory Accompanied by: Self Discharged To: Home CLEANING COUNTER CLERK documented in this encounter Plan of Treatment Not on file documented as of this encounter Visit Diagnoses Diagnosis Iron deficiency anemia due to chronic blood loss- Primary Iron deficiency anemia secondary to blood loss (chronic) documented in this encounter Administered Medications Inactive Administered Medications - up to 3 most recent administrations Medication Order MAR Action Action Date Dose Rate Site diphenhydrAMINE (BENADRYL) tab/cap 25 mg 25 mg, oral, Once, On Sat06/15/22 at 1015, For 1 doseIndications:Iron deficiency anemia due to chronic blood loss Given 06/15/2022 9:33 AM DRY CLEANING COUNTER CLERK 25 mg iron sucrose (VENOFER) 300 mg in sodium chloride 0.9% 250 mL IVPB 300 mg, intravenous, at 176.7 mL/hr, Administer over 90 Minutes, Once, On Sat06/15/22 at 1015, For 1 doseIndications:Iron deficiency anemia due to chronic blood loss New Bag 06/15/2022 9:49 AM DRY CLEANING COUNTER CLERK 300 mg 176.7 mL/hr methylPREDNISolone sodium succinate (SOLU-medrol) preservative free injection 125 mg 125 mg, intravenous, Administer over 3 Minutes, Once, On Sat06/15/22 at 1015, For 1 doseIndications:Iron deficiency anemia due to chronic blood loss Given 06/15/2022 9:33 AM DRY CLEANING COUNTER CLERK 125 mg documented in this encounter Orders Nursing Count Last Ordered Date First Orde red Date VITAL SIGNS 1 06/15/2022 Appointment Requests Count Last Ordered Date Fi rst Ordered Date ONCBCN STMN RECURRING INFUSI ON APPT REQUEST 1 06/15/2022 documented in this encounter Care Teams Environmental Geologist Relationship Specialty Start Date End Date Starr Bran PA [address] [place] [address] PCP - General Internal Medicine 12/30/18 Bibiana Schuler MD [address] [place] [address] Consulting Physician Gastroenterology 05/11/21 Cornelius Garcia DO [address] [place] [address] MEDICAL ONCOLOGY, [address] [place], [place] [id number] Medical Oncologist/Hematologis t Hematology and Oncology 09/26/21 documented as of this encounter
--- OUTSIDE RECORDS SUMMARY | 2024-07-18 20:31 | XMS_ITS | Encounter Summary ---
Author Organization [facility] Address [address] [facility] [address] [place] [address] Care Team Providers Care Marine Steam Fitter Helper Name Role Phone Starr Bran Primary Care Provider [phone] Bibiana Schuler MD Unavailable [phone] Cornelius Garcia DO Unavailable [phone] Reason for Visit * Reason Comments Injections B12 injection Encounter Details Date Type Department Care Team (Latest Contact Info) Description 06/19/2022 10:00 AM EAR MUFF ASSEMBLER Clinical Support [facility] Family Medicine [address] [facility] [address] [place] [address] Vitamin D deficiency (Primary Dx); Low vitamin B12 level Social History Tobacco Use Types Packs/Day Years [...] on file Legal Sex Female 10:31 AM EAR MUFF ASSEMBLER Gender Identity Female 02/02/2021 7:25 AM CDT Sexual Orientation Straight 02/02/2021 7: 25 AM CDT documented as of this encounter Plan of Treatment Not on file documented as of this encounter Visit Diagnoses Diagnosis Vitamin D deficiency- Primary Low vitamin B12 level documented in this encounter Administered Medications Inactive Administered Medications - up to 3 most recent administrations Medication Order MAR Action Action Date Dose Rate Site cyanocobalamin (Vitamin B-12) injection 1,000 mcg 1,000 mcg, intramuscular, Every 30 days, First dose on Sat06/19/22 at 1045Indications:Low vitamin B12 level Given 06/19/2022 10:02 AM EAR MUFF ASSEMBLER 1,000 mcg Right Deltoid documented in this encounter Care Teams Marine Steam Fitter Helper Relationship Specialty Start Date End Date Starr Bran PA [address] [place] [address] PCP - General Internal Medicine 12/30/18 Bibiana Schuler MD [address] [place] [address] Consulting Physician Gastroenterology 05/11/21 Cornelius Garcia DO [address] [place] [address] MEDICAL ONCOLOGY, [facility] [address] [place] [address] Medical Oncologist/Hematologis t Hematology and Oncology 09/26/21 documented as of this encounter
--- OUTSIDE RECORDS SUMMARY | 2024-07-18 20:31 | XMS_ITS | Encounter Summary ---
Author Organization [facility] Address [address] [facility] [address] [place] [address] Phone Care Team Providers Care Hooker Operator Name Role Phone Starr Bran Primary Care Provider [phone] Bibiana Schuler MD Unavailable [phone] Cornelius Garcia DO Unavailable [phone] Reason for Visit * Episode Based Medications (Routine) - Closed Specialty Diagnoses / Procedures Referred By Hung gao Referred To Contact Diagnoses Iron deficiency anemia due to chronic blood loss Cornelius Garcia DO [address] [place] [address] Phone: tel: fax: [facility] Oncology [address] [place] [address] Phone: tel: fax: Referral ID Status Reason Start Date Expiration Date Visits Re quested Visits Authorized [id number] Closed 05/31/2022 06/30/2023 1 99 Encounter Details Date Type Department Care Team (Late st Contact Info) Description 06/25/2022 8:00 AM RESEARCH DAIRY FARM SUPERVISOR Infusion [facility] Oncology [address] [place] [phone] Iron deficiency anemia due to chronic [...] on file Legal Sex Female 10:31 AM RESEARCH DAIRY FARM SUPERVISOR Gender Identity Female 02/02/2021 7:25 AM CDT Sexual Orientation Straight 02/02/2021 7: 25 AM CDT documented as of this encounter Last Filed Vital Signs Vital Sign Reading Time Taken Comments Blood Pressure 128/83 06/25/2022 9:10 AM RESEARCH DAIRY FARM SUPERVISOR Pulse 91 06/25/2022 8:14 AM RESEARCH DAIRY FARM SUPERVISOR Temperature 36.9 ??C (98.4 ??F) 06/25/2022 8 :14 AM RESEARCH DAIRY FARM SUPERVISOR Respiratory Rate 18 06/25/2022 8:14 AM RESEARCH DAIRY FARM SUPERVISOR Oxygen Saturation 99% 06/25/2022 8:1 4 AM RESEARCH DAIRY FARM SUPERVISOR Inhaled Oxygen Concentration - - Weight 93.3 kg (205 lb 9.6 oz) 06/25/20 8:14 AM RESEARCH DAIRY FARM SUPERVISOR with shoes Height 160 cm (5' 3 ) 06/25/2022 8:14 AM RESEARCH DAIRY FARM SUPERVISOR Body Mass Index 36.42 06/25/2022 8:14 AM RESEARCH DAIRY FARM SUPERVISOR documented in this encounter Nursing Notes * Chelsey Mcclendon RN - 06/25/2022 8:00 AM CST Oncology Nursing Note [facility] ONCOL[facility] Viktoriya Bell is a 57 y.o. female who presents for treatment 3 of Venofer. Pre-treatment Nursing Assessment Nursing Assessment Appetite: Good Diarrhea: No Constipation: No Existing Patients: Any falls since your last visit?: No Fatigue: Occassional Mouth Sores: No Nausea/Vomiting: No Neurological symptoms: No Pain: No Shortness of Breath?: Yes Respiratory Effort Characteristics: Dyspnea exertion Skin Condition/Temp: Warm, Dry Oral Mucosa Grade: Normal (0) Swelling: No Additional Notes: BP: 128/83 Temp: 36.9 ??C (98.4 ??F) Temp src: Oral Pulse: 91 Resp: 18 SpO2: 99 % Height: 160 cm (5' 3 ) Weight: 93.3 kg (205 lb 9.6 oz) (with shoes) Treatment Patient: met treatment parameters Pre blood return: Jeferson Bell tolerated treatment well. Patient was frequently observed and monitored throughout the administration of their treatment. Additional Notes: Post blood return: Brisk IV access post infusion: NS Patient Education Treatment Education: Information/teaching given to patient including process and procedure related to today's visit Response: Verbalizes understanding Discharge Plan Discharge instructions given to patient. Future appointments given and reviewed with treatment plan. Discharge Mode: Ambulatory Accompanied by: Self Discharged To: Home ARCH DAIRY FARM SUPERVISOR documented in this encounter Plan of Treatment [...] 25 mg 25 mg, oral, Once, On Sat06/25/22 at 0915, For 1 doseIndications:Iron deficiency anemia due to chronic blood loss Given 06/25/2022 8:40 AM RESEARCH DAIRY FARM SUPERVISOR 25 mg iron sucrose (VENOFER) 300 mg in sodium chloride 0.9% 250 mL IVPB 300 mg, intravenous, at 176.7 mL/hr, Administer over 90 Minutes, Once, On Sat06/25/22 at 0915, For 1 doseIndications:Iron deficiency anemia due to chronic blood loss New Bag 06/25/2022 8:55 AM RESEARCH DAIRY FARM SUPERVISOR 300 mg 176.7 mL/hr methylPREDNISolone sodium succinate (SOLU-medrol) preservative free injection 125 mg 125 mg, intravenous, Administer over 3 Minutes, Once, On Sat06/25/22 at 0915, For 1 doseIndications:Iron deficiency anemia due to chronic blood loss Given 06/25/2022 8:40 AM RESEARCH DAIRY FARM SUPERVISOR 125 mg documented in this encounter Orders Nursing Count Last Ordered Date First Orde red Date VITAL SIGNS 1 06/25/2022 Appointment Requests Count Last Ordered Date Fi rst Ordered Date ONCBCN STMN RECURRING INFUSI ON APPT REQUEST 1 06/25/2022 documented in this encounter Care Teams Hooker Operator Relationship Specialty Start Date End Date Starr Bran PA [address] [place] [address] PCP - General Internal Medicine 12/30/18 Bibiana Schuler MD [address] [place], [place] [id number] Consulting Physician Gastroenterology 05/11/21 Cornelius Garcia DO [address] [place] [address] MEDICAL ONCOLOGY, [address] [place] [address] Medical Oncologist/Hematologis t Hematology and Oncology 09/26/21 documented as of this encounter
--- OUTSIDE RECORDS SUMMARY | 2024-07-18 20:31 | XMS_ITS | Encounter Summary ---
Author Organization [facility] Medical Group Address [address] [address] Care Team Providers Care Deposit Clerk Name Role Phone Starr Bran Primary Care Provider [phone] Bibiana Schuler MD Unavailable [phone] Cornelius Garcia DO Unavailable [phone] Reason for Visit * Reason Onset Date Comments Call Back 07/03/2022 Encounter Details Date Type Department Care Team (Late st Contact Info) Description 07/03/2022 Telephone [facility] Family Medicine [address] [facility] [address] [place] [address] Starr Bran PA [address] [place] [address] Call Back Social History Tobacco Use Types Packs/Day Years [...] on file Legal Sex Female 10:31 AM INTERACTIVE MEDIA PROJECT MANAGER Gender Identity Female 02/02/2021 7:25 AM CDT Sexual Orientation Straight 02/02/2021 7: 25 AM CDT documented as of this encounter Miscellaneous Notes * Telephone Encounter - Humberto Peña - 07/03/2022 8:26 AM CST Call Back Caller???s Concern: Viktoriya called and wanted to see Starr Bran PA, no avaibility meet withpt's needs, she relayed she is going to urgent care Caller???s Call back #: [phone] Does message need to be routed? No RACTIVE MEDIA PROJECT MANAGER documented in this encounter Plan of Treatment Not on file documented as of this encounter Visit Diagnoses Not on filedocumented in this encounter Care Teams Deposit Clerk Relationship Specialty Start Date End Date Starr Bran PA [address] [place] [address] PCP - General Internal Medicine 12/30/18 Bibiana Schuler MD [address] [place] [address] Consulting Physician Gastroenterology 05/11/21 Cornelius Garcia DO [address] [place] [address] MEDICAL ONCOLOGY, [address] [place] [address] Medical Oncologist/Hematologis t Hematology and Oncology 09/26/21 documented as of this encounter
--- OUTSIDE RECORDS SUMMARY | 2024-07-18 20:32 | XMS_ITS | Encounter Summary ---
Author Organization [facility] Medical [facility] Address [address] [facility] [address] [place] [address] Care Team Providers Care Integration Technician Name Role Phone Starr Bran Primary Care Provider [phone] Bibiana Schuler MD Unavailable [phone] Cornelius Garcia DO Unavailable [phone] Reason for Visit * Reason Comments Follow-up Flu Vaccine vitamin b 12 vaccine Encounter Details Date Type Department Care Team (Late st Contact Info) Description 05/17/2022 8:30 AM CDT Office Visit [facility] Family Medicine [address] [place] [address] Starr Bran PA [address] [place] [address] Iron deficiency anemia due to chronic blood loss (Primary Dx); Low vitamin B12 level; Vitamin D deficiency; Hyperglycemia; Essential hypertension; Moderate episode of recurrent major depressive disorder (HCC); Fatigue, unspecified type; Lipid screening; SOB (shortness of breath) on exertion; Flu vaccine need; Vitamin B12 deficiency; Morbid obesity (CMS/HCC) (HCC); BMI 36.0-36.9,adult Social History Tobacco Use [...] on file 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 Gender Identity Female 02/02/2021 7:25 AM CDT Sexual Orientation Straight 02/02/2021 7: 25 AM CDT documented as of this encounter Last Filed Vital Signs Vital Sign Reading Time Taken Comments Blood Pressure 120/80 05/17/2022 8:36 AM CDT Pulse 92 05/17/2022 8:36 AM CDT Temperature 37.2 ??C (99 ??F) 05/17/2022 8:36 AM CDT Respiratory Rate - - Oxygen Saturation 99% 05/17/2022 8:36 AM CDT Inhaled Oxygen Concentration - - Weight 93.5 kg (206 lb 3.2 oz) 05/17/2022 8:36 A M CDT Height 160 cm (5' 3 ) 05/17/2022 8:36 AM CDT Body Mass Index 36.53 05/17/2022 8:36 AM CDT documented in this encounter Progress Notes * Starr Bran PA - 05/17/2022 8:30 AM CDT Images from the original note were not included. Subjective/Objective Patient ID: Viktoriya Bell is a 57 y.o. female. Chief Complaint Follow-up, Flu Vaccine, and vitamin b 12 vaccine HPI Patient presents to followup chronic concerns. Patient states I feel like a train wreck Dry skin, hair on face, hot flashes, sweating, FATIGUE In the last 3 weeks it has been worse) Ringing in the ears SOB, fatigue Tightness in shoulders Tingling in the lips Vasomotor sxs -- Effexor 225mg daily increased in November and saw improvement but now feels like sxs are returning. Status post HYST 07/2021 -- NO bleeding or problems since. 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 Garcia -- has done iron infusions--Last iron panel in summer was normal GI Dr. Schuler -- 09/2020 EGD - gastritis Colonoscopy normal Capsule follow thru was negative. Needs FLU vaccine Review of Systems See HPI Vitals: 05/17/22 0836 BP: 120/80 BP Location: Left arm Patient Position: Sitting Pulse: 92 Temp: 37.2 ??C (99 ??F) TempSrc: Oral SpO2: 99% Weight: 93.5 kg (206 lb 3.2 oz) Height: 160 cm (5' 3 ) Physical Exam Vitals and nursing note reviewed. Constitutional: Appearance: She is well-developed. Comments: Appears tired. HENT: Head: Normocephalic and atraumatic. Eyes: Comments: [...] anemia due to chronic blood loss (D50.0) (Primary) Assessment & Plan: Patient with history of iron deficiency anemia. Had menorrhagia status post hysterectomy in Julyof 2021. In the summer her iron indices were back to normal. Will need to recheck the lab work again for anemia status. She feels like the symptoms are back as she just feels like a train wreck. She is still on daily iron orally. Her B12 has also been corrected. Orders: - CBC with auto differential; Future - Iron profile w/ IBC; Future - Ferritin; Future Low vitamin B12 level (E53.8) Assessment & Plan: Continue to correct B12 anemia with monthly injections Orders: - Vitamin B12; Future Vitamin D deficiency (E55.9) Assessment & Plan: Supplement Orders: - Vitamin D 25 hydroxy; Future Hyperglycemia (R73.9) Assessment & Plan: Pre-diabetes/hyperglycemia is a precursor to Dm. Stressed importance of working on diet (decrease your simple sugars and one carbohydrate with each meal) and increase you exercise to achieve weight loss and this will help prevent you from progressing to diabetes. Orders: - Hemoglobin A1c; Future Essential hypertension (I10) Assessment & Plan: Bp is stable/in acceptable range for any co-morbidities. Encouraged to limit sodium intake and exercise for weight control. Continue lisinopril Orders: - Comprehensive metabolic panel; Future Moderate episode of recurrent major depressive disorder (HCC) (F33.1) Assessment & Plan: Continue Effexor Fatigue, unspecified type (R53.83) Assessment & Plan: Probably multifactorial. Check labs and followup to re-evaluate Orders: - Magnesium; Future - TSH; Future Lipid screening (Z13.220) Assessment & Plan: Check labs Orders: - Lipid panel; Future SOB (shortness of breath) on exertion (R06.02) Assessment & Plan: Patient is noting increased shortness of breath. [...] labs to look at her anemia status. Flu vaccine need (Z23) Assessment & Plan: Flu vaccine updated in the office today Orders: - Flu Vaccine Quad PF 6m+ IM - Fluarix / FluLaval / Fluzone Vitamin B12 deficiency (E53.8) - cyanocobalamin (Vitamin B-12) injection 1,000 mcg; Inject 1 mL (1,000 mcg total) into the muscle as instructed every 30 (thirty) days Morbid obesity (CMS/HCC) ([facility]) (E66.01) Assessment & Plan: Obesity is unchanged. Discussed the patient's BMI. The BMI is above average. BMI management plan is completed. BMI Follow-up includes: nutrition counseling, exercise counseling and education provided. Patient has an obesity-related condition (not limited to: hypertension, obstructive sleep apnea, osteoarthritis, hyperlipidemia, diabetes, etc.). Therefore, morbid obesity may be documented for patients with a BMI between 35.00-39.99. BMI 36.0-36.9,adult (Z68.36) Assessment & Plan: Obesity is unchanged. Discussed the patient's BMI. The BMI is above average. BMI management plan is completed. BMI Follow-up includes: nutrition counseling, exercise counseling and education provided. *This note is dictated using [employer] medical voice recognition software, variances in spelling and vocabulary are possible and unintentional.* Starr Bran PA-C documented in this encounter Miscellaneous Notes * Assessment & Plan Note - Starr Bran PA - 05/26/2022 12:34 PM CDT Associated Problem(s): Lipid screening (Resolved 07/30/2022) Check labs * Assessment & Plan Note - Starr Bran PA - 05/26/2022 12:34 PM CDT Associated Problem(s): Fatigue Probably multifactorial. Check labs and followup to re-evaluate * Assessment & Plan Note - Starr Bran PA - 05/26/2022 12:34 PM CDT Associated Problem(s): Flu vaccine need (Resolved 07/30/2022) Flu vaccine updated in the office today * Assessment & Plan Note - Starr Bran PA - 05/26/2022 12:31 PM CDT Associated Problem(s): Moderate episode of recurrent major depressive disorder (HCC) Continue Effexor * Assessment & Plan Note - Starr Bran PA - 05/26/2022 12:31 PM CDT Associated Problem(s): Low vitamin B12 level Continue to correct B12 anemia with monthly injections * Assessment & Plan Note - Starr Bran PA - 05/26/2022 12:30 PM CDT Associated Problem(s): Iron deficiency anemia due to chronic blood loss Patient with history of iron deficiency anemia. Had menorrhagia status post hysterectomy in 2021. In the summer her iron indices were back to normal. Will need to recheck the lab work again for anemia status. She feels like the symptoms are back as she just feels like a train wreck. She is still on daily iron orally. Her B12 has also been corrected. * Assessment & Plan Note - Starr Bran PA - 05/26/2022 12:29 PM CDT Associated Problem(s): PHAN (dyspnea on exertion) Patient is noting increased shortness of breath. [...] labs to look at her anemia status. * Assessment & Plan Note - Starr Bran PA - 05/26/2022 12:29 PM CDT Associated Problem(s): Hyperglycemia Pre-diabetes/hyperglycemia is a precursor to Dm. Stressed importance of working on diet (decrease your simple sugars and one carbohydrate with each meal) and increase you exercise to achieve weight loss and this will help prevent you from progressing to diabetes. * Assessment & Plan Note - Starr Bran PA - 05/26/2022 12:29 PM CDT Associated Problem(s): Vitamin D deficiency Supplement * Assessment & Plan Note - Starr Bran PA - 05/26/2022 12:29 PM CDT Associated Problem(s): Essential hypertension Bp is stable/in acceptable range for any co-morbidities. Encouraged to limit sodium intake and exercise for weight control. Continue lisinopril * Assessment & Plan Note - Flaco Morales MA - 05/17/2022 8:38 AM CDT Associated Problem(s): BMI 36.0-36.9,adult (Resolved 10/04/2022) Obesity is unchanged. Discussed the patient's BMI. The BMI is above average. BMI management plan is completed. BMI Follow-up includes: nutrition counseling, exercise counseling and education provided. * Assessment & Plan Note - Flaco Morales MA - 05/17/2022 8:38 AM CDT Associated Problem(s): Morbid obesity (HCC) (Resolved 10/04/2022) Obesity is unchanged. Discussed the patient's BMI. The BMI is above average. BMI management plan is completed. BMI Follow-up includes: nutrition counseling, exercise counseling and education provided. Patient has an obesity-related condition (not limited to: hypertension, obstructive sleep apnea, osteoarthritis, hyperlipidemia, diabetes, etc.). Therefore, morbid obesity may be documented for patients with a BMI between 35.00-39.99. documented in this encounter Plan of Treatment Not on file documented as of this encounter Procedures Procedure Name Priority Date/Time Associated Diagnosis Comments LIPID PANEL Routine 05/22/2022 10:15 AM CDT Lipid screening IRON PROFILE W/ IBC Routine 05/22/2022 1 0:02 AM CDT Iron deficiency anemia due to chronic blood loss CBC WITH AUTO DIFFERENTIAL Routine 05/22/2022 10:02 AM CDT Iron deficiency anemia due to chronic blood loss VITAMIN D 25 HYDROXY Routine 05/22/2022 10:02 AM CDT Vitamin D deficiency TSH Routine 05/22/2022 10:02 AM CDT Fatigue, unspecified type MAGNESIUM Routine 05/22/2022 10:02 AM CDT Fatigue, unspecified type HEMOGLOBIN A1C Routine 05/22/2022 10:02 AM CDT Hyperglycemia FERRITIN Routine 05/22/2022 10:02 AM CDT Iron deficiency anemia due to chronic blood loss VITAMIN B12 Routine 05/22/2022 10:02 AM CDT Low vitamin B12 level COMPREHENSIVE METABOLIC PANEL Routine 05/22/2022 10:02 AM CDT Essential hypertension documented in this encounter Results * (ABNORMAL) Lipid panel (05/22/2022 10:15 AM CDT) Cholesterol 185 100 - 199 mg/dL [facility] - 01 Triglycerides 147 0 - 149 mg/dL [facility] - 01 HDL Cholesterol 51 >39 mg/dL [facility] - 01 VLDL 26 5 - 40 mg/dL [facility] - 01 LDL, calculated 108(H) 0 - 99 mg/dL [facility] - 01 Blood 05/22/2022 10:1 5 AM CDT 05/22/2022 Narrative [facility] - 05/23/2022 7:36 AM CDT Performed at: ??01 - [facility] [address] ??[id number] Rn Residential: Parveen Lofton PhD, Phone: ??[phone] Starr SALVADOR LAB BLOOD ORDERABLES Final Result Performing Organization Address [facility] de Phone Number [facility] * Vitamin D 25 hydroxy (05/22/2022 10:02 AM CDT) Vitamin D, 25-Hydroxy 71.4 30.0 - 100.0 ng/mL [facility] - Comment: Vitamin D deficiency has been defined by the [place] of Medicine and an Endocrine Society practice guideline as a level of serum 25-OH vitamin D less than 20 ng/mL (1,2). The Endocrine Society went on to further define vitamin D insufficiency as a level between 21 and 29 ng/mL (2). 1. IOM ([place] of [employer]). 2010. Dietary reference ?? intakes for calcium and D. [place]: The ?? National AcademBMEYE Press. 2. Jonathan MF, Eli NC, Santiago JOHNSON, et al. ?? Evaluation, treatment, and prevention of vitamin D ?? deficiency: an Endocrine Society clinical practice ?? guideline. JCEM. 2010; 96(7):1911-30. Blood 05/22/2022 10:0 2 AM CDT 05/22/2022 Narrative [facility] - 05/23/2022 7:36 AM CDT Performed at: ??01 - [facility] [address] ??[id number] Rn Residential: Parveen Lofton PhD, Phone: ??[phone] Starr SALVADOR LAB BLOOD ORDERABLES Final Result Performing Organization Address [facility]/ZIP Co de Phone Number [facility] * Vitamin B12 (05/22/2022 10:02 AM CDT) Vitamin B12 489 232 - 1,245 pg/mL [facility] - Blood 05/22/2022 10:0 2 AM CDT 05/22/2022 Narrative [facility] - 05/23/2022 7:36 AM CDT Performed at: ??01 - [address] ??[id number] Rn Residential: Parveen Lofton PhD, Phone: ??[phone] Starr SALVADOR LAB BLOOD ORDERABLES Final Result Performing Organization Address [facility] de Phone Number [facility] - 01 * TSH (05/22/2022 10:02 AM CDT) TSH 1.330 0.450 - 4.500 uIU/mL [facility] - 01 Blood 05/22/2022 10:0 2 AM CDT 05/22/2022 Narrative [facility] - 05/23/2022 7:36 AM CDT Performed at: ??[address] ??[id number] Rn Residential: Parveen Lofton PhD, Phone: ??[phone] Result [facility] Starr SALVADOR LAB BLOOD ORDERABLES Final Result Performing Organization Address [facility] de Phone Number [facility] - 01 * Magnesium (05/22/2022 10:02 AM CDT) Magnesium 2.0 1.6 - 2.3 mg/dL [facility] - 01 Blood 05/22/2022 10:0 2 AM CDT 05/22/2022 Narrative [facility] - 05/23/2022 9:37 AM CDT Performed at: ??[address] ??[id number] Rn Residential: Parveen Lofton PhD, Phone: ??[phone] Starr SALVADOR LAB BLOOD ORDERABLES Final Result Performing Organization Address [facility] de Phone Number [facility] - 01 * Hemoglobin A1c (05/22/2022 10:02 AM CDT) [facility] Hgb A1C 4.9 4.8 - 5.6 % [facility] - Comment: ? Prediabetes: 5.7 - 6.4 ? Diabetes: >6.4 ? Glycemic control for adults with diabetes: <7.0 Blood 05/22/2022 10:0 2 AM CDT 05/22/2022 Narrative [facility] - 05/23/2022 4:10 PM CDT Performed at: ??[address] ??[id number] Rn Residential: Parveen Lofton PhD, Phone: ??[phone] Starr SALVADOR LAB BLOOD ORDERABLES Final Result Performing Organization Address [facility] de Phone Number [facility] - 01 * Ferritin (05/22/2022 10:02 AM CDT) [facility] Ferritin 21 15 - 150 ng/mL [facility] - Blood 05/22/2022 10:0 2 AM CDT 05/22/2022 Narrative [facility] - 05/23/2022 9:37 AM CDT Performed at: ??01 - [facility] ??[id number] Rn Residential: Parveen Lofton PhD, Phone: ??[phone] Starr SALVADOR LAB BLOOD ORDERABLES Final Result Performing Organization Address [facility] de Phone Number [facility] - 01 * (ABNORMAL) Iron profile w/ IBC (05/22/2022 10:02 AM CDT) [facility] Iron Bind.Cap.(TIBC) 387 250 - 450 ug/dL [facility] - 01 UIBC 365 131 - 425 ug/dL [facility] - 01 Iron 22(L) 27 - 159 ug/dL [facility] - 01 Iron saturation 6(LL) 15 - 55 % [facility] - 01 Blood 05/22/2022 10:0 2 AM CDT 05/22/2022 Narrative [facility] - 05/23/2022 7:36 AM CDT Performed at: ??01 - [facility] ??[id number] Rn Residential: Parveen Lofton PhD, Phone: ??[phone] us Starr SALVADOR LAB BLOOD ORDERABLES Final Result [facility] - [facility] * Comprehensive metabolic panel (05/22/2022 10:02 AM CDT) Glucose 99 70 - 99 mg/dL [facility] - 01 BUN 10 6 - 24 mg/dL [facility] - 01 Creatinine, Serum 0.61 0.57 - 1.00 mg/dL [facility] - 01 eGFR 104 >59 mL/min/1.73 [facility] - 01 BUN/creat ratio 16 9 - 23 [facility] - 01 Sodium 141 134 - 144 mmol/L [facility] - 01 Potassium, sr 4.4 3.5 - 5.2 mmol/L [facility] - 01 Chloride 103 96 - 106 mmol/L [facility] - 01 CO2 21 20 - 29 mmol/L [facility] - 01 Calcium 9.0 8.7 - 10.2 mg/dL [facility] - 01 Protein, sr 6.3 6.0 - 8.5 g/dL [facility] - 01 Albumin 4.0 3.8 - 4.9 g/dL [facility] - 01 Globulin, Total 2.3 1.5 - 4.5 g/dL [facility] - 01 A/G Ratio 1.7 1.2 - 2.2 [facility] - 01 Bilirubin, Total 0.3 0.0 - 1.2 mg/dL [facility] - 01 Alk phos 79 44 - 121 IU/L [facility] - 01 AST 23 0 - 40 IU/L [facility] - 01 ALT 23 0 - 32 IU/L [facility] - 01 Blood 05/22/2022 10:0 2 AM CDT 05/22/2022 Narrative [facility] - 05/23/2022 7:36 AM CDT Performed at: ??01 - [facility] [address], [place], [place] ??[id number] Rn Residential: Parveen Lofton PhD, Phone: ??[phone] Starr SALVADOR LAB BLOOD ORDERABLES Final Result [facility] - [facility] * (ABNORMAL) CBC with auto differential (05/22/2022 10:02 AM CDT) WBC 3.3(L) 3.4 - 10.8 x10E3/uL [facility] - 01 RBC 3.42(L) 3.77 - 5.28 x10E6/uL [facility] - 01 Hgb 9.2(L) 11.1 - 15.9 g/dL [facility] - 01 Hct 29.7(L) 34.0 - 46.6 % [facility] - 01 MCV 87 79 - 97 fL [facility] - 01 MCH 26.9 26.6 - 33.0 pg [facility] - 01 MCHC 31.0(L) 31.5 - 35.7 g/dL [facility] - 01 Rdw 13.9 11.7 - 15.4 % [facility] - 01 Platelets 258 150 - 450 x10E3/uL [facility] - 01 Neutrophils pct 71 Not Estab. % [facility] - 01 Lymphs pct 22 Not Estab. % [facility] - 01 Monocytes pct 7 Not Estab. % [facility] - 01 Eosinophils pct 0 Not Estab. % [facility] - 01 Basophil pct 0 Not Estab. % [facility] - 01 Neutrophil abs 2.3 1.4 - 7.0 x10E3/uL [facility] - 01 Lymphs (Absolute) 0.7 0.7 - 3.1 x10E3/uL [facility] - 01 Monocyte abs 0.2 0.1 - 0.9 x10E3/uL [facility] - 01 Eosinophils, abs 0.0 0.0 - 0.4 x10E3/uL [facility] - 01 Basophils, abs 0.0 0.0 - 0.2 x10E3/uL [facility] - 01 Immature Granulocytes 0 Not Estab. % [facility] - 01 Immature Grans (Abs) 0.0 0.0 - 0.1 x10E3/uL [facility] - 01 Blood 05/22/2022 10:0 2 AM CDT 05/22/2022 Narrative [facility] - 05/23/2022 7:36 AM CDT Performed at: ?? - [facility] [address], [place], [place] ??[id number] Rn Residential: Parveen Lofton PhD, Phone: ??[phone] Starr SALVADOR LAB BLOOD ORDERABLES Final Result [facility] - 01 documented in this encounter Visit Diagnoses Diagnosis Iron deficiency anemia due to chronic blood loss- Primary Iron deficiency anemia secondary to blood loss (chronic) Low vitamin B12 level Vitamin D deficiency Hyperglycemia Other abnormal glucose Essential hypertension Unspecified essential hypertension Moderate episode of recurrent major depressive disorder (HCC) Fatigue, unspecified type Lipid screening Screening for lipoid disorders SOB (shortness of breath) on exertion Shortness of breath Flu vaccine need Vitamin B12 deficiency Other B-complex deficiencies Morbid obesity (HCC) Morbid obesity BMI 36.0-36.9,adult documented in this encounter Orders Medications Ordered That Sonido ht Not Have Been Administered Count Last Ordered Date First Ordered Date cyanocobalamin (Vitamin B-12 ) injection 1,000 mcg 1 05/17/2022 Immunization/Injection Count Last Ordered Date First Ordered Date FLU VACCINE QUAD PF 6M+ IM - FLUARIX / FLULAVAL / FLUZONE- SYRINGE 1 05/17/2022 documented in this encounter Care Teams Integration Technician Relationship Specialty Start Date End Date Starr Bran PA [address] [facility] [address] [place] [address] PCP - General Internal Medicine 12/30/18 Bibiana Schuler MD [address] [facility] [address] [place] [address] Consulting Physician Gastroenterology 05/11/21 Cornelius Garcia DO [facility], [facility] [address] [place] [address] Medical Oncologist/Hematologis t Hematology and Oncology 09/26/21 documented as of this encounter
--- OUTSIDE RECORDS SUMMARY | 2024-07-18 20:32 | XMS_ITS | Encounter Summary ---
Author Organization [facility] Medical [facility] Address [address] [facility] [address] [place] [address] Care Team Providers Care Sleep Technician Name Role Phone Starr Bran Primary Care Provider [phone] Bibiana Schuler MD Unavailable [phone] Cornelius Garcia DO Unavailable [phone] Encounter Details Date Type Department Care Team (Late st Contact Info) Description 04/30/2022 Orders Only [facility] Family Medicine [address] [facility] [address] [place] [address] Provider, MD [place] [address] [place] [address] Social History Tobacco Use Types Packs/Day [...] points, staff should administer the PHQ-9) 0 12/14/2020 Comments Unknown Sex and Gender Information Value Date Recorded Sex Assigned at Not on file 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[employer] Gender Identity Female 02/02/2021 7:25 AM CDT Sexual Orientation Straight 02/02/2021 7: 25 AM CDT documented as of this encounter Plan of Treatment Not on file documented as of this encounter Procedures Procedure Name Priority Date/Time Associated Diagnosis Comments MAMMOGRAPHY Routine 04/26/2022 documented in this encounter Results * HM MAMMOGRAPHY (04/26/2022) us Historical Provider HEALTH MAINTENANCE Edited Result - Final documented in this encounter Visit Diagnoses Not on filedocumented in this encounter Care Teams Sleep Technician Relationship Specialty Start Date End Date Starr Bran PA [address] [place], [place] [id number] PCP - General Internal Medicine 12/30/18 Bibiana Schuler MD [address] [place] [address] Consulting Physician Gastroenterology 05/11/21 Cornelius Garcia DO [address] [place] [address] MEDICAL ONCOLOGY, [address] [place] [address] Medical Oncologist/Hematologis t Hematology and Oncology 09/26/21 documented as of this encounter
--- OUTSIDE RECORDS SUMMARY | 2024-07-18 20:32 | XMS_ITS | Encounter Summary ---
Author Organization [facility] Address [address] [facility] [address] [place] [address] Care Team Providers Care Loan Officer Name Role Phone Starr Bran Primary Care Provider [phone]- [phone] Bibiana Schuler MD Unavailable [phone] Cornelius Garcia DO Unavailable [phone] Reason for Visit * Reason Comments B12 Injection Encounter Details Date Type Department Care Team (Latest Contact Info) Description 03/15/2022 8:00 AM CDT Clinical Support [facility] Family Medicine [address] [place] [address] Vitamin B12 deficiency (Primary Dx) Social [...] on file 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 Gender Identity Female 02/02/2021 7:25 AM CDT Sexual Orientation Straight 02/02/2021 7: 25 AM CDT documented as of this encounter Last Filed Vital Signs Vital Sign Reading Time Taken Comments Blood Pressure - - Pulse - - Temperature - - Respiratory Rate - - Oxygen Saturation - - Inhaled Oxygen Concentration - - Weight - - Height 160 cm (5' 3 ) 03/15/2022 8:09 AM CDT Body Mass Index - - documented in this encounter Plan of Treatment Not on file documented as of this encounter Visit Diagnoses Diagnosis Vitamin B12 deficiency- Primary Other B-complex deficiencies documented in this encounter Orders Medications Ordered That Sonido ht Not Have Been Administered Count Last Ordered Date First Ordered Date cyanocobalamin (Vitamin B-12 ) injection 1,000 mcg 1 03/15/2022 documented in this encounter Care Teams Loan Officer Relationship Specialty Start Date End Date Starr Bran PA [address] [place] [address] PCP - General Internal Medicine 12/30/18 Bibiana Schuler MD [address] [place] [address] Consulting Physician Gastroenterology 05/11/21 Cornelius Garcia DO [address] [place] [address] [facility], [facility] [address] [place] [address] Medical Oncologist/Hematologis t Hematology and Oncology 09/26/21 documented as of this encounter
--- OUTSIDE RECORDS SUMMARY | 2024-07-18 20:32 | XMS_ITS | Encounter Summary ---
Author Organization [facility] Healthcare Address [address] [place] [address] Care Team Providers Care Ob/Gyn Physician Name Role Phone Starr Bran Primary Care Provider [phone]- [phone] Bibiana Schuler MD Unavailable [phone] Cornelius Garcia DO Unavailable [phone] Reason for Referral * Diagnostic Imaging (Routine) - Closed Specialty Diagnoses / Procedures Referred By Contac t Referred To Contact Diagnoses Right leg pain Other chest pain Procedures US VEIN DUPLEX LOWER EXTREMITY RIGHT LIMITED, UNILATERAL Starr Bran PA [address] [place] [address] Phone: tel: fax: [address] [phone] Referral ID Status Reason Start Date Expiration Date Visits Re quested Visits Authorized [id number] Closed 05/28/2022 06/27/2023 1 1 Reason for Visit * Diagnostic Imaging (Routine) - Closed Specialty Diagnoses / Procedures Referred By Contac t Referred To Contact Diagnoses Right leg pain Other chest pain Procedures US VEIN DUPLEX LOWER EXTREMITY RIGHT LIMITED, UNILATERAL Starr Bran PA [address] [place] [id number] Phone: tel: fax:[phone] [facility] [address] [place] [phone] Referral ID Status Reason Start Date Expiration Date Visits Re quested Visits Authorized [id number] Closed 05/28/2022 06/27/2023 1 1 Encounter Details Date Type Department Care Team (Latest Contact Info) Description 05/28/2022 12:51 PM CDT - 05/28/2022 11:59 PM CDT Hospital Encounter [facility] [address] [place] [phone] Right leg pain; Other chest pain Discharge Disposition: Discharge to home or [...] on file 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 Gender Identity Female 02/02/2021 7:25 AM CDT Sexual Orientation Straight 02/02/2021 7: 25 AM CDT documented as of this encounter Medications at Time of Discharge multivitamin tablet daily aspirin 81 mg enteric coated tablet Take 1 tablet (81 mg total) by mouth daily 05/07/2024 FeroSuL 325 mg (65 mg iron) tabletIndication s:Low vitamin B12 level TAKE 1 TABLET BY MOUTH TWICE DAILY 180 tablet 2 02/19/2022 12/11/2023 lisinopriL (PRINIVIL,ZESTRI L) 10 mg tablet TAKE 1 TABLET DAILY 90 tablet 3 04/24/2022 10/06/2022 venlafaxine XR (EFFEXOR-XR) 75 mg 24 hr capsule Take 3 capsules (225 mg total) by mouth daily Take with food. 270 capsule 1 01/16/2022 06/27/2022 documented as of this encounter Discharge Disposition Disposition Code Departure Means Destination Discharge to home or self care documented in this encounter Plan of Treatment Not on file documented as of this encounter Procedures Procedure Name Priority Date/Time Associated Diagnosis Comments US VEIN DUPLEX LOWER EXTREMITY RIGHT LIMITED Schedule Routine, Read Routine (OP Routine) 05/28/2022 1:21 PM CDT Right leg pain Other chest pain documented in this encounter Results * US VEIN DUPLEX LOWER EXTREMITY RIGHT LIMITED, UNILATERAL (05/28/2022 1:21 PM CDT) Anatomical Region Laterality Modality Vascular Right Ultrasound 05/28/2022 Narrative 06/10/2022 3:04 PM ASSOCIATE ART DIRECTOR [place] Job ID: [id number] [employer] Document ID: [id number] Dictated date/time: [id number] LOWER EXTREMITY VENOUS DUPLEX INDICATION Swelling involving the right lower extremity. COMMENTS ON THE RIGHT LOWER EXTREMITY Right common femoral vein is compressible, it has spontaneous and phasic flow. ??Right saphenofemoral junction is patent. ??There is no thrombus present on the Great saphenous vein. ??Femoral vein proximal, mid and distally is compressible. ??Similarly popliteal vein is compressible proximal, mid and distally. ??No filling defect present on the color Doppler exam of posterior tibial and peroneal veins. COMMENTS ON THE LEFT LOWER EXTREMITY Left common femoral is compressible with spontaneous and phasic flow. Done for comparison only. CONCLUSIONS No acute DVT in the right lower extremity. Job ID/Internal Job ID: ??[id number] Starr SALVADOR IMG US PROCEDURES Final Re sult documented in this encounter Visit Diagnoses Diagnosis Right leg pain Pain in soft tissues of limb Other chest pain documented in this encounter Care Teams Ob/Gyn Physician Relationship Specialty Start Date End Date Starr Bran PA [address] [facility] [address] [place] [address] PCP - General Internal Medicine 12/30/18 Bibiana Schuler MD [address] [facility] [address] [place] [address] Consulting Physician Gastroenterology 05/11/21 Cornelius Garcia DO [facility] MEDICAL ONCOLOGY, [facility] [address] [place] [address] Medical Oncologist/Hematologis t Hematology and Oncology 09/26/21 documented as of this encounter
--- OUTSIDE RECORDS SUMMARY | 2024-07-18 20:32 | XMS_ITS | Encounter Summary ---
Author Organization [facility] Healthcare Address [address] [place] [address] Care Team Providers Care Equipment Processer Storage Name Role Phone Starr Bran Primary Care Provider [phone]- [phone] Bibiana Schuler MD Unavailable [phone] Cornelius Garcia DO Unavailable [phone] Encounter Details Date Type Department Care Team (Late st Contact Info) Description 05/28/2022 2:[address] 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 Gender Identity Female 02/02/2021 7:25 AM CDT Sexual Orientation Straight 02/02/2021 7: 25 AM CDT documented as of this encounter Plan of Treatment Not on file documented as of this encounter Procedures Procedure Name Priority Date/Time Associated Diagnosis Comments D-DIMER, QUANTITATIVE Routine 05/28/2022 1:36 PM CDT Other chest pain documented in this encounter Results * D-dimer, quantitative (05/28/2022 1:36 PM CDT) D-Dimer 480 <=499 ng/mL FEU LELAND Comment: Interpretive data FDA approved the D-dimer, in conjunction with a low or moderate pretest probability score, to exclude venous thromboembolic events (VTE) (PE and DVT) in outpatients when the D-dimer result is < 500 ng/ml FEU. ?? Evidence supports using an age-adjusted D-dimer cut-off for outpatients older than 50 (age x 10) to improve specificity without sacrificing sensitivity. Example: age 68, VTE cut-off 680 ng/ml FEU. References; Schouten HT et al. Brit Med J. 2013;346:f2492. Kasey LINDSEY et al. Annals Int Med. 2015;163:701-11. Current interpretive data was last revised on 2019. Testing performed by: [facility], [address] [place] [address]., [address] Blood 05/28/2022 1:36 PM CDT 05/28/2022 1:56 PM CDT us Starr SALVADOR LAB BLOOD ORDERABLES Final Result [facility] [address] [facility] [place] [address] documented in this encounter Visit Diagnoses Diagnosis Other chest pain documented in this encounter Care Teams Equipment Processer Storage Relationship Specialty Start Date End Date Starr Bran PA [address] [place] [address] PCP - General Internal Medicine 12/30/18 Bibiana Schuler MD [address] [place] [address] Consulting Physician Gastroenterology 05/11/21 Cornelius Garcia DO [address] [place] [address] MEDICAL ONCOLOGY, [facility] [address] [place] [address] Medical Oncologist/Hematologis t Hematology and Oncology 09/26/21 documented as of this encounter
--- OUTSIDE RECORDS SUMMARY | 2024-07-18 20:32 | XMS_ITS | Encounter Summary ---
Author Organization [facility] Address [address] [place] [address] Care Team Providers Care Certified Hearing Instrument Dispenser Name Role Phone Starr Bran Primary Care Provider [phone]- [phone] Bibiana Schuler MD Unavailable [phone] Cornelius Garcia DO Unavailable [phone] Encounter Details Date Type Department Care Team (Late st Contact Info) Description 05/28/2022 Orders Only [facility] Family Medicine [address] [place] [address] Starr Bran PA [address] [place] [address] Right leg pain (Primary Dx); Right leg swelling Social History Tobacco Use Types Packs/Day Years [...] on file 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 Gender Identity Female 02/02/2021 7:25 AM CDT Sexual Orientation Straight 02/02/2021 7: 25 AM CDT documented as of this encounter Plan of Treatment Not on file documented as of this encounter Visit Diagnoses Diagnosis Right leg pain- Primary Pain in soft tissues of limb Right leg swelling documented in this encounter Care Teams Certified Hearing Instrument Dispenser Relationship Specialty Start Date End Date Starr Bran PA [address] [facility] [address] [place] [address] PCP - General Internal Medicine 12/30/18 Bibiana Schuler MD [address] [facility] [address] [place] [address] Consulting Physician Gastroenterology 05/11/21 Cornelius Garcia DO [address] [place] [address] MEDICAL ONCOLOGY, [address] [address] Medical Oncologist/Hematologis t Hematology and Oncology 09/26/21 documented as of this encounter
--- OUTSIDE RECORDS SUMMARY | 2024-07-18 20:32 | XMS_ITS | Encounter Summary ---
Author Organization [facility] Address [address] [facility] [address] [place] [address] Phone Care Team Providers Care Tenter Name Role Phone Starr Bran Primary Care Provider [phone]- [phone] Bibiana Schuler MD Unavailable [phone] Cornelius Garcia DO Unavailable [phone] Encounter Details Date Type Department Care Team (Late st Contact Info) Description 06/03/2022 Orders Only [facility] Physicians [facility] Oncology [address] [address] Cornelius Garcia DO [facility] [address] Iron deficiency anemia due to chronic [...] on file Legal Sex Female 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 AM 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 Gender Identity Female 02/02/2021 7:25 AM CDT Sexual Orientation Straight 02/02/2021 7: 25 AM CDT documented as of this encounter Plan of Treatment Not on file documented as of this encounter Visit Diagnoses Diagnosis Iron deficiency anemia due to chronic blood loss- Primary Iron deficiency anemia secondary to blood loss (chronic) documented in this encounter Care Teams Tenter Relationship Specialty Start Date End Date Starr Bran PA [address] [place] [address] PCP - General Internal Medicine 12/30/18 Bibiana Schuler MD [address] [place] [address] Consulting Physician Gastroenterology 05/11/21 Cornelius Garcia DO [address] [place] [address] MEDICAL ONCOLOGY, [facility] [address] [place] [address] Medical Oncologist/Hematologis t Hematology and Oncology 09/26/21 documented as of this encounter
--- OUTSIDE RECORDS SUMMARY | 2024-07-18 20:32 | XMS_ITS | Encounter Summary ---
Author Organization [facility] Address [address] [facility] [address] [place] [address] Care Team Providers Care Broom Stitcher Name Role Phone Starr Bran Primary Care Provider [phone]- [phone] Bibiana Schuler MD Unavailable [phone] Cornelius Garcia DO Unavailable [phone] Reason for Visit * Reason Comments Injections Encounter Details Date Type Department Care Team (Latest Contact Info) Description 04/17/2022 10:00 AM CDT Clinical Support [facility] Family Medicine [address] [facility] [address] [place] [address] Low vitamin B12 level (Primary [...] on file 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 Gender Identity Female 02/02/2021 7:25 AM [...] intramuscular, Every 30 days, First dose on Sat04/17/22 at 1030Indications:Low vitamin B12 level Given 04/17/2022 9:59 AM CDT 1,000 mcg Right Deltoid documented in this encounter Care Teams Broom Stitcher Relationship Specialty Start Date End Date Starr Bran PA [address] [place] [address] PCP - General Internal Medicine 12/30/18 Bibiana Schuler MD [address] [place] [address] Consulting Physician Gastroenterology 05/11/21 Cornelius Garcia DO [address] [place] [address] MEDICAL ONCOLOGY, [facility] [address] [place] [address] Medical Oncologist/Hematologis t Hematology and Oncology 09/26/21 documented as of this encounter
--- OUTSIDE RECORDS SUMMARY | 2024-07-18 20:32 | XMS_ITS | Encounter Summary ---
Author Organization [facility] Address [address] [facility] [address] [place] [address] Phone Care Team Providers Care Cloth Finishing Range Operator Name Role Phone Starr Bran Primary Care Provider [phone]- [phone] Bibiana Schuler MD Unavailable [phone] Cornelius Garcia DO Unavailable [phone] Encounter Details Date Type Department Care Team (Late st Contact Info) Description 05/31/2022 Telephone [facility] Oncology [facility] [facility] [address] [place] [address] Raven Bains CMA Social History Tobacco Use Types Packs/Day Years [...] on file 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 Female 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 Garcia, set patient up for IV Iron infusions and repeat labs and office visit 6 weeks after infusions. * Telephone Encounter - Raven Bains CMA - 05/31/2022 10:01 AM CDT Patient called, office visit with PCP, MODESTO Noe on 05/17/2022, labs on 05/22/2022; per patient, PCP was going to discuss lab results Dr Garcia and possible iron infusion Please advise documented in this encounter Plan of Treatment Not on file documented as of this encounter Results * Ferritin (08/02/2022 9:23 AM CRATE ICER) Ferritin 40 15 - 150 ng/mL LELAND GARCIA Comment:Testing performed by : [facility], [address] [place] [address], [place]., [address] Blood 08/02/2022 9:23 AM CRATE ICER 08/02/2022 10:20 AM CRATE ICER Cornelius Garcia DO LAB BLOOD ORDERABLES Final R esult Performing Organization Address [facility] de Phone Number [facility] [address] [facility] [place] [address] * (ABNORMAL) Iron profile w/ IBC (08/02/2022 9:23 AM CRATE ICER) Pathologist [facility] Iron 55 35 - 145 mcg/dL LELAND GARCIA Comment:Testing performed by : [address] [address] TIBC 331 250 - 400 mcg/dL LELAND GARCIA Comment:Testing performed by : [address] [address] Transferrin saturation 17(L) 20 - 50 % LELAND GARCIA Comment:Testing performed by : [address] [address] Blood 08/02/2022 9:23 AM CRATE ICER 08/02/2022 10:20 AM CRATE ICER Cornelius Garcia LAB BLOOD ORDERABLES Final R esult Performing Organization Address [facility] Co de Phone Number [place] [address] [facility] [place] [address] * (ABNORMAL) CBC with auto differential (08/02/2022 9:23 AM CRATE ICER) Pathologist [facility] WBC 3.6(L) 3.8 - 9.9 K/cumm LELAND GARCIA Comment:Testing performed by : [address] [address] Hgb 10.3(L) 11.9 - 15.5 g/dL LELAND GARCIA Comment:Testing performed by : [address] [address] Hct 32.6(L) 35.6 - 45.5 % LELAND GARCIA Comment:Testing performed by : [address] [address] Plt 205 150 - 400 K/cumm LELAND GARCIA Comment:Testing performed by : [address] [address] MPV 9.5 9.1 - 12.3 fL LELAND Comment:Testing performed by : [facility], [address] [place] [address]., [address] RBC 3.66(L) 3.90 - 5.20 M/cumm LELAND Comment:Testing performed by : [facility], [address] [place] [address]., [address] MCV 89.1 81.3 - 96.4 fL LELAND Comment:Testing performed by : [address] [address] MCH 28.1 27.1 - 33.3 pg LELAND Comment:Testing performed by : [address] [address] MCHC 31.6(L) 32.3 - 35.7 g/dL LELAND Comment:Testing performed by : [address] [address] RDW CV 15.1(H) 11.1 - 14.9 % LELAND Comment:Testing performed by : [address] [address] RDW SD 49.1(H) 35.7 - 48.1 fL LELAND Comment:Testing performed by : [address] [address] Blood 08/02/2022 9:23 AM CRATE ICER 08/02/2022 9:24 AM CRATE ICER Cornelius Garcia DO LAB BLOOD ORDERABLES Final R esult [facility] [address] [facility] Department [place] [address] documented in this encounter Visit Diagnoses Diagnosis Iron deficiency anemia due to chronic blood loss- Primary Iron deficiency anemia secondary to blood loss (chronic) documented in this encounter Orders Appointment Requests Count Last Ordered Date Fi rst Ordered Date ONCBCN CLINIC APPOINTMENT REQUEST 1 023 ONCBCN LAB APPOINTMENT 1 08/02/2022 ONCBCN [facility] RECURRING INFUSI ON APPT REQUEST 3 06/25/2022 06/08/2022 documented in this encounter Care Teams Cloth Finishing Range Operator Relationship Specialty Start Date End Date Starr Bran PA [address] [place], [place] [id number] PCP - General Internal Medicine 12/30/18 Bibiana Schuler MD [address] [place], [place] [id number] Consulting Physician Gastroenterology 05/11/21 Cornelius Garcia DO [address] [place] [address] MEDICAL ONCOLOGY, [address] [place] [address] Medical Oncologist/Hematologis t Hematology and Oncology 09/26/21 documented as of this encounter
--- OUTSIDE RECORDS SUMMARY | 2024-07-18 20:32 | XMS_ITS | Encounter Summary ---
Author Organization [facility] Address [address] [facility] [address] [place] [address] Phone Care Team Providers Care Doll Surgeon Name Role Phone Starr Bran Primary Care Provider [phone] Bibiana Schuler MD Unavailable [phone] Cornelius Garcia DO Unavailable [phone] Encounter Details Date Type Department Care Team (Late st Contact Info) Description 06/01/2022 Telephone [facility] Oncology [facility] [facility] [address] [place] [address] Teodora Valadez, [facility] Social History Tobacco Use Types Packs/Day Years [...] on file 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 Informed pt on date and time of appt. Also informed pt to stop at checkout to get a copy of all her other appts. AM documented in this encounter Plan of Treatment Not on file documented as of this encounter Visit Diagnoses Not on filedocumented in this encounter Care Teams Doll Surgeon Relationship Specialty Start Date End Date Starr Bran PA [address] [place] [address] PCP - General Internal Medicine 12/30/18 Bibiana Schuler MD [address] [place] [address] Consulting Physician Gastroenterology 05/11/21 Cornelius Garcia DO [address] [place] [address] MEDICAL ONCOLOGY, [address] [place] [address] Medical Oncologist/Hematologis t Hematology and Oncology 09/26/21 documented as of this encounter
--- OUTSIDE RECORDS SUMMARY | 2024-07-18 20:32 | XMS_ITS | Encounter Summary ---
Author Organization [facility] Address [address] [address] Care Team Providers Care Fire Extinguisher Technician Name Role Phone Starr Bran Primary Care Provider [phone] Bibiana Schuler MD Unavailable [phone] Cornelius Garcia DO Unavailable [phone] Reason for Referral * Diagnostic Imaging (Routine) - Closed Specialty Diagnoses / Procedures Referred By Contac t Referred To Contact Diagnoses Right leg pain Other chest pain Procedures US VEIN DUPLEX LOWER EXTREMITY RIGHT LIMITED, UNILATERAL Starr Bran PA [address] [place] [address] Phone: tel: fax: [address] [address] Referral ID Status Reason Start Date Expiration Date Visits Re quested Visits Authorized [id number] Closed 05/28/2022 06/27/2023 1 1 Encounter Details Date Type Department Care Team (Late st Contact Info) Description 05/28/2022 Orders Only [facility] Family Medicine [address] [place] [address] Starr Bran PA [address] [place] [address] Right leg pain (Primary Dx); Other chest pain Social History Tobacco Use [...] on file 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 Brit Med J. 2013;346:f2492. Kasey et al. Annals Int Med. 2015;163:701-11. Current interpretive data was last revised on 2019. Testing performed by: [facility], [address] [place] [address]., [address] Blood 05/28/2022 1:36 PM CDT 05/28/2022 1:56 PM CDT Starr SALVADOR LAB BLOOD ORDERABLES Final Result [place] [address] [facility] Department [place] [address] * US VEIN DUPLEX LOWER EXTREMITY RIGHT LIMITED, UNILATERAL (05/28/2022 1:21 PM CDT) Anatomical Region Laterality Modality Vascular Right Ultrasound 05/28/2022 Narrative 06/10/2022 3:04 PM [address] C[address]OGRAPHIC TECHNICIAN Drive Job ID: [id number] Drive Document ID: [id number] Dictated date/time: [id number] LOWER EXTREMITY VENOUS DUPLEX INDICATION Swelling involving [...] right lower extremity. Job ID/Internal Job ID: ??[id number] Starr SALVADOR IMG US PROCEDURES Final Re sult documented in this encounter Visit Diagnoses Diagnosis Right leg pain- Primary Pain in soft tissues of limb Other chest pain Right leg pain Pain in soft tissues of limb Other chest pain documented in this encounter Care Teams Fire Extinguisher Technician Relationship Specialty Start Date End Date Starr Bran PA [address] [place] [address] PCP - General Internal Medicine 12/30/18 Bibiana Schuler MD [address] [place], [place] [id number] Consulting Physician Gastroenterology 05/11/21 Cornelius Garcia DO [address] [place] [address] MEDICAL ONCOLOGY, [address] [address] Medical Oncologist/Hematologis t Hematology and Oncology 09/26/21 documented as of this encounter
--- OUTSIDE RECORDS SUMMARY | 2024-07-18 20:33 | XMS_ITS | Encounter Summary ---
Author Organization [facility] Address [address] [facility] [address] [place] [address] Care Team Providers Care Lifestyle Consultant Name Role Phone Starr Bran Primary Care Provider [phone]- [phone] Bibiana Schuler MD Unavailable [phone] Cornelius Garcia DO Unavailable [phone] Reason for Visit * Reason Comments B12 Injection Encounter Details Date Type Department Care Team (Latest Contact Info) Description 12/07/2021 9:00 AM CDT Clinical Support [facility] Family Medicine [address] [address] [place] [address] Low vitamin B12 level (Primary Dx) Social History Tobacco Use Types Packs/Day Years Used Date Smoking Tobacco: Never Smokeless Tobacco: Never AUDIT-C Answer Date Recorded Q1: How often do you have a drink containing alc ohol? Never 12/14/2020 Average Number of Drinks Not on file 021 Q3: How often do you have si x or more drinks on one occasion? 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 Given in L deltoid. Patient tolerated well, ambulated out of the clinic. She will return in 4 weeks for additional injection, but will call sooner with any questions or concerns. documented in this encounter Plan of Treatment [...] Every 30 days, First dose on Daphne 12/07/21 at 0930Indications:Low vitamin B12 level Given 12/07/2021 8:58 AM CDT 1,000 mcg Left Deltoid documented in this encounter Care Teams Lifestyle Consultant Relationship Specialty Start Date End Date Starr Bran PA [address] [place] [address] PCP - General Internal Medicine 12/30/18 Bibiaan Schuler MD [address] [place] [address] Consulting Physician Gastroenterology 05/11/21 Cornelius Garcia DO [facility], [address] [place] [address] Medical Oncologist/Hematologis t Hematology and Oncology 09/26/21 documented as of this encounter
--- OUTSIDE RECORDS SUMMARY | 2024-07-18 20:33 | XMS_ITS | Encounter Summary ---
Author Organization [facility] Address [address] [facility] [address] [place] [address] Care Team Providers Care Fiberglass Insulation Installer Name Role Phone Starr Bran Primary Care Provider [phone] Bruce Olea MD Unavailable [phone] Bibiana Schuler MD Unavailable [phone] Cornelius Garcia DO Unavailable [phone] Encounter Details Date Type Department Care Team (Late st Contact Info) Description 08/08/2021 Orders Only [facility] [address] [place] [address] Scanning, Provider Social History Tobacco Use Types Packs/Day Years [...] on file Legal Sex Female 10:31 AM CAN CLEANER Gender Identity Female 02/02/2021 7:25 AM CDT Sexual Orientation Straight 02/02/2021 7: 25 AM CDT documented as of this encounter Plan of Treatment Not on file documented as of this encounter Procedures Procedure Name Priority Date/Time Associated Diagnosis Comments SCAN - PATHOLOGY 08/08/2021 documented in this encounter Results * SCAN - PATHOLOGY (08/08/2021) Provider Scanning Final Result documented in this encounter Visit Diagnoses Not on filedocumented in this encounter Care Teams Fiberglass Insulation Installer Relationship Specialty Start Date End Date Starr Bran PA [address] [place] [address] PCP - General Internal Medicine 12/30/18 Bruce Olea MD [address] [place] [address] Medical Oncologist/Hematologis t Medical Oncology 02/17/21 09/25/21 Bibiana Schuler MD [address] [place] [address] Consulting Physician Gastroenterology 05/11/21 Cornelius Garcia DO [address] [place] [address] MEDICAL ONCOLOGY, [facility] [address] [place], [place] [address] Medical Oncologist/Hematologis t Hematology and Oncology 09/26/21 documented as of this encounter
--- OUTSIDE RECORDS SUMMARY | 2024-07-18 20:33 | XMS_ITS | Encounter Summary ---
Author Organization [facility] Address [address] [facility] [address] [place] [address] Care Team Providers Care Personal Lines Advisor Name Role Phone Starr Bran Primary Care Provider [phone] Bruce Olea MD Unavailable [phone] Bibiana Schuler MD Unavailable [phone] Reason for Visit * Reason Comments B12 Injection Encounter Details Date Type Department Care Team (Latest Contact Info) Description 06/21/2021 10:30 AM CLINICAL SCIENCE CONSULTANT Clinical Support [facility] Family Medicine [address] [facility] [address] [place] [address] Low vitamin B12 level (Primary [...] file Legal Sex Female 10:31 AM CLINICAL SCIENCE CONSULTANT Gender Identity Female 02/02/2021 7:25 AM CDT Sexual Orientation Straight 02/02/2021 7: 25 AM CDT documented as of this encounter Progress Notes * Louise Caldwell LPN - 06/21/2021 10:30 AM CST Patient here for b12 injection. Given in L deltoid. Patient tolerated well, ambulated out of the clinic. She will return in 2 weeks for additional injection, but will call sooner with any questions or concerns. ICAL SCIENCE CONSULTANT documented in this encounter Plan of Treatment Not on file documented as of this encounter Visit Diagnoses Diagnosis Low vitamin B12 level- Primary documented in this encounter Administered Medications Inactive Administered Medications - up to 3 most recent administrations Medication Order MAR Action Action Date Dose Rate Site cyanocobalamin (Vitamin B-12) injection 1,000 mcg 1,000 mcg, intramuscular, Every 30 days, First dose on Sat06/21/21 at 1115Indications:Low vitamin B12 level Given 06/21/2021 10:33 AM CLINICAL SCIENCE CONSULTANT 1,000 mcg Left Deltoid documented in this encounter Care Teams Personal Lines Advisor Relationship Specialty Start Date End Date Starr Bran PA [address] [place] [address] PCP - General Internal Medicine 12/30/18 Bruce Olea MD [address] [place] [address] Medical Oncologist/Composition Floor Setter Medical Oncology 02/17/21 09/25/21 Bibiana Schuler MD [address] [place] [address] Consulting Physician Gastroenterology 05/11/21 documented as of this encounter
--- OUTSIDE RECORDS SUMMARY | 2024-07-18 20:33 | XMS_ITS | Encounter Summary ---
Author Organization [facility] Address [address] [place] [address] Phone Care Team Providers Care Raise Drill Operator Name Role Phone Starr Bran Primary Care Provider [phone] Bruce Olea MD Unavailable [phone] Bibiana Schuler MD Unavailable Reason for Referral * Diagnostic Imaging (Routine) - Closed Specialty Diagnoses / Procedures Referred By Hung t Referred To Contact Diagnoses History of DVT (deep vein thrombosis) Procedures US Vein Duplex Lower Extremity Bilateral Complete Ani Villafana DO [facility] [address] [address] Phone: tel: fax: [address] [address] Referral ID Status Reason Start Date Expiration Date Visits Re quested Visits Authorized [id number] Closed 07/07/2021 08/06/2022 1 1 BUILDER Reason for Visit * Reason Comments Consult Encounter Details Date Type Department Care Team (Late st Contact Info) Description 07/07/2021 11:30 AM TIRE BUILDER Office Visit [facility] Oncology [address] [place] [address] [address] [place] [address] Ani Villafana DO [address] [address] Iron deficiency anemia due to chronic blood loss (Primary Dx); Vitamin D deficiency; History of pulmonary embolus (PE); History of DVT (deep vein thrombosis); Low vitamin B12 level Social History Tobacco [...] on file Legal Sex Female 10:31 AM TIRE BUILDER Gender Identity Female 02/02/2021 7:25 AM CDT Sexual Orientation Straight 02/02/2021 7: 25 AM CDT documented as of this encounter Last Filed Vital Signs Vital Sign Reading Time Taken Comments Blood Pressure 157/91 07/07/2021 11:51 AM TIRE BUILDER Pulse 84 07/07/2021 11:51 AM TIRE BUILDER Temperature 37.2 ??C (98.9 ??F) 07/07/2021 11:[address] Respiratory Rate 16 07/07/2021 11:51 AM TIRE BUILDER Oxygen Saturation 98% 07/07/2021 11:51 AM TIRE BUILDER Inhaled Oxygen Concentration - - Weight 89.4 kg (197 lb 1.6 oz) 07/07/2021 11:51 AM TIRE BUILDER Height 160 cm (5' 3 ) 07/07/2021 11:51 AM TIRE BUILDER Body Mass Index 34.91 07/07/2021 11:51 AM TIRE BUILDER documented in this encounter Progress Notes * Ani Villafana DO - 07/07/2021 11:30 AM CST Patient ID: Viktoriya Bell is a 56 y.o. female. Primary Care Provider: Starr Bran PA Assessment/Plan 1. Improvement of the iron deficiency anemia with repletion of the iron stores and increasing hemoglobin hematocrit. 2. Menorrhagia. 3. Resolution of the pulmonary embolus and probably the right lower leg DVT. Recommendations: 1. For now, she will continue with her current supplementation of vitamin B12 and iron diet. 2. I will see her back in 3 months with repeat blood work and examination. 3. I will have her undergo duplex ultrasound the right lower leg in the next week. If that is negative for thrombosis, then I can safely stop the Eliquis and she can convert over to aspirin. Hormone replacement therapy was the precipitating factor in developing the PE and DVT. Unfortunately, she can never be placed back on estrogen and progestin therapy due to increased riskof venous thromboembolic events. My total encounter time on 07/07/2021 was 20 minutes which was spent in the activities documented in the note. This includes time spent prior to the visit and after the visit in direct care of the patient. This time does not include time spent in any separately reportable services. Patient Active Problem List Diagnosis ??? Essential hypertension ??? Perimenopausal menorrhagia ??? Vitamin D deficiency ??? Hyperglycemia ??? [...] of recurrent major depressive disorder (HCC) ??? Obesity (BMI 30-39.9) ??? BMI 34.0-34.9,adult ??? Flu vaccine need Diagnoses and all orders for this visit: Iron deficiency anemia due to chronic blood loss (Primary) - Clinic Appointment Request New patient; ANI VILLAFANA; Clinic Appointment Location: [facility] - CBC with auto differential; Future - Ferritin; Future - Iron profile w/ IBC; Future - Reticulocyte Count; Future - Clinic Appointment Request Follow up; ANI VILLAFANA; Clinic Appointment Location: [facility]; Future Vitamin D deficiency History of pulmonary embolus (PE) - Clinic Appointment Request New patient; ANI VILLAFANA; Clinic Appointment Location: [facility] - Clinic Appointment Request Follow up; LEDYANI DoughertyRamón; Clinic Appointment Location: [facility]; Future History of DVT (deep vein thrombosis) - Clinic Appointment Request New patient; ANI VILLAFANARamón; Clinic Appointment Location: [facility] - Clinic Appointment Request Follow up; LEDYANI DoughertyRamón; Clinic Appointment Location: [facility]; Future - US Vein Duplex Lower Extremity Bilateral Complete; Future Low vitamin B12 level - Clinic Appointment Request New patient; ANI VILLAFANARamón; Clinic Appointment Location: [facility] - Clinic Appointment Request Follow up; ANI VILLAFANA Jorge ARamón; Clinic Appointment Location: [facility]; Future Subjective Interval History: A. Iron deficiency anemia. B. vitamin B12 deficiency C. Bilateral pulmonary emboli with thrombosis of the right lower extremity History as follows: 1. Earlier this fall, she was diagnosed with iron deficiency anemia. 2. Patient received iron sucrose on 2 separate occasions-May 15 and May 22. 3. Hemoglobin has greatly improved up to 10.5. 4. Patient is receiving bimonthly vitamin B12 injections at 1000 micro g IM through her PCP. 5. In October, she was diagnosed with bilateral pulmonary emboli and DVT of the right leg. She was placed on anticoagulation with Eliquis 5 mg b.i.d.. She continues to be on this. 6. At this visit, she feels still fatigue with malaise. She continues to have her menstrual cycle. She stopped Depo-Provera. She was on oral contraceptive medications for 7 years. She underwent ablation and dilatation curettage in May. Interval Notes: I have reviewed: allergies, current medications, past family history, past medical history, past social history, past surgical history and problem list HPI Review of Systems Constitutional: Negative. Negative for appetite change and chills. HENT: Negative. Eyes: Negative. Respiratory: Negative. Cardiovascular: Negative. Gastrointestinal: Negative. Endocrine: Negative. Genitourinary: Positive for menstrual problem, vaginal bleeding and abnormal menses. Musculoskeletal: Negative. Skin: Negative. Neurological: Negative. Hematological: Negative. Psychiatric/Behavioral: Negative. Objective Physical Exam: Vital Signs for this encounter: BSA: 1.99 meters squared BP 157/91 (BP Location: Right arm) Pulse 84 Temp 37.2 ??C (98.9 ??F) (Oral) Resp 16 Ht 160 cm (5' 3 ) Wt 89.4 kg (197 lb 1.6 oz) SpO2 98% BMI 34.91 kg/m?? Physical Exam Constitutional: Appearance: She is [...] Results: WBC Date Value Ref Range Status 06/15/2021 4.6 3.4 - 10.8 x10E3/uL Final Hgb Date Value Ref Range Status 06/15/2021 10.5 (L) 11.1 - 15.9 g/dL Final Hct Date Value Ref Range Status 06/15/2021 33.7 (L) 34.0 - 46.6 % Final Platelets Date Value Ref Range Status 06/15/2021 243 150 - 450 x10E3/uL Final Creatinine, Serum Date Value Ref Range Status 04/24/2021 0.60 0.57 - 1.00 mg/dL Final AST Date Value Ref Range Status 04/24/2021 13 0 - 40 IU/L Final 1. Ferritin is normal at 55 with a transferrin saturation of 8% and serum iron of 26. 2. CT angiogram in January showed complete resolution of pulmonary emboli. BUILDER documented in this encounter Plan of Treatment Not on file documented as of this encounter Procedures Procedure Name Priority Date/Time Associated Diagnosis Comments IRON PROFILE W/ IBC Routine 08/01/2021 7 :28 AM TIRE BUILDER Iron deficiency anemia due to chronic blood loss CBC WITH AUTO DIFFERENTIAL Routine 08/01/2021 7:28 AM TIRE BUILDER Iron deficiency anemia due to chronic blood loss RETICULOCYTES Routine 08/01/2021 7:28 AM TIRE BUILDER Iron deficiency anemia due to chronic blood loss FERRITIN Routine 08/01/2021 7:28 AM TIRE BUILDER Iron deficiency anemia due to chronic blood loss documented in this encounter Results * (ABNORMAL) Reticulocyte Count (08/01/2021 7:28 AM TIRE BUILDER) Reticulocyte Count 3.2(H) 0.6 - 2.6 % [facility] - 01 Blood specimen (specimen) 08/01/2021 7:28 AM TIRE BUILDER 08/01/2021 Narrative [facility] - 08/02/2021 9:09 AM TIRE BUILDER Performed at: ??01 - [facility] ??[id number] Powerhouse Electrician Apprentice: Parveen Lofton PhD, Phone: ??[phone] Ani Villafana DO LAB BLOOD ORDERABLES Final R esult [facility] - 01 * (ABNORMAL) Iron profile w/ IBC (08/01/2021 7:28 AM TIRE BUILDER) Pathologist [facility] Iron Bind.Cap.(TIBC) 317 250 - 450 ug/dL [facility] - 01 UIBC 290 131 - 425 ug/dL [facility] - 01 Iron 27 27 - 159 ug/dL [facility] - 01 Iron saturation 9(LL) 15 - 55 % [facility] - 01 Blood specimen (specimen) 08/01/2021 7:28 AM TIRE BUILDER 08/01/2021 Narrative [facility] - 08/02/2021 9:09 AM TIRE BUILDER Performed at: ?? - [facility] ??[id number] Powerhouse Electrician Apprentice: Parveen Lofton PhD, Phone: ??[phone] Ani Villafana DO LAB BLOOD ORDERABLES Final R esult Performing Organization Address City/[facility]/ZIP Co de Phone Number [facility] - 01 * Ferritin (08/01/2021 7:28 AM TIRE BUILDER) Pathologist [facility] Ferritin 21 15 - 150 ng/mL [facility] - 01 Blood specimen (specimen) 08/01/2021 7:28 AM TIRE BUILDER 08/01/2021 Narrative [facility] - 08/02/2021 9:09 AM TIRE BUILDER Performed at: ?? - [facility] [address] ??[id number] Powerhouse Electrician Apprentice: Parveen Lofton PhD, Phone: ??[phone] Ani Villafana DO LAB BLOOD ORDERABLES Final R esult Performing Organization Address City/[facility] Co de Phone Number [facility] - 01 * CBC with auto differential (08/01/2021 7:28 AM TIRE BUILDER) Pathologist [facility] WBC 3.9 3.4 - 10.8 x10E3/uL [facility] - 01 RBC 3.96 3.77 - 5.28 x10E6/uL [facility] - 01 Hgb 11.4 11.1 - 15.9 g/dL [facility] - 01 Hct 34.9 34.0 - 46.6 % [facility] - 01 MCV 88 79 - 97 fL [facility] - 01 MCH 28.8 26.6 - 33.0 pg [facility] - 01 MCHC 32.7 31.5 - 35.7 g/dL [facility] - 01 Rdw 13.9 11.7 - 15.4 % [facility] - 01 Platelets 246 150 - 450 x10E3/uL [facility] - 01 Neutrophils pct 70 Not Estab. % [facility] - 01 Lymphs pct 20 Not Estab. % [facility] - 01 Monocytes pct 8 Not Estab. % [facility] - 01 Eosinophils pct 0 Not Estab. % [facility] - 01 Basophil pct 1 Not Estab. % [facility] - 01 Neutrophil abs 2.8 1.4 - 7.0 x10E3/uL [facility] - 01 Lymphs (Absolute) 0.8 0.7 - 3.1 x10E3/uL [facility] - 01 Monocyte abs 0.3 0.1 - 0.9 x10E3/uL [facility] - 01 Eosinophils, abs 0.0 0.0 - 0.4 x10E3/uL [facility] - 01 Basophils, abs 0.0 0.0 - 0.2 x10E3/uL [facility] - 01 Immature Granulocytes 1 Not Estab. % [facility] - 01 Immature Grans (Abs) 0.0 0.0 - 0.1 x10E3/uL [facility] - 01 Blood specimen (specimen) 08/01/2021 7:28 AM TIRE BUILDER 08/01/2021 Narrative [facility] - 08/02/2021 9:09 AM TIRE BUILDER Performed at: ?? - [facility] [address] ??[id number] Powerhouse Electrician Apprentice: Parveen Lofton PhD, Phone: ??[phone] Ani Villafana DO LAB BLOOD ORDERABLES Final R esult [facility] - 01 * US Vein Duplex Lower Extremity Bilateral Complete (07/12/2021 11:34 AM TIRE BUILDER) Anatomical Region Laterality Modality Vascular Bilateral Ultrasound 07/12/2021 Narrative 07/14/2021 3:20 PM TIRE BUILDER [employer] Job ID: [id number] [employer] Document ID: [id number] Dictated date/time: [id number] REASON FOR STUDY Previous DVT on the right side. ??No thrombus seen in the common femoral, superficial femoral, popliteal, posterior tibial, peroneal or greater saphenous veins bilaterally. IMPRESSION No evidence of deep vein thrombosis in either lower extremity. ??The previous right lower extremity deep vein thrombosis has resolved. JOB ID/VF JOB ID: [id number] Ani Villafana DO IMG US PROCEDURES Final Resu lt documented in this encounter Visit Diagnoses Diagnosis Iron deficiency anemia due to chronic blood loss- Primary Iron deficiency anemia secondary to blood loss (chronic) Vitamin D deficiency History of pulmonary embolus (PE) History of DVT (deep vein thrombosis) Low vitamin B12 level History of DVT (deep vein thrombosis) documented in this encounter Orders Appointment Requests Count Last Ordered Date Fi rst Ordered Date [facility] CL[facility]IC APPOINTMENT REQUEST 2 022 07/07/2021 documented in this encounter Care Teams Raise Drill Operator Relationship Specialty Start Date End Date Starr Bran PA [address] [place] [address] PCP - General Internal Medicine 12/30/18 Bruce Olea MD [address] [place] [address] Medical Oncologist/Underwriter Solicitation Director Medical Oncology 02/17/21 09/25/21 Bibiana Schuler MD [address] [place] [address] Consulting Physician Gastroenterology 05/11/21 documented as of this encounter
--- OUTSIDE RECORDS SUMMARY | 2024-07-18 20:33 | XMS_ITS | Encounter Summary ---
Author Organization [facility] Address [address] [facility] [address] [place] [address] Phone Care Team Providers Care Appointment Coordinator Name Role Phone Starr Bran Primary Care Provider [phone] Bruce Olea MD Unavailable [phone] Bibiana Schuler MD Unavailable [phone] Encounter Details Date Type Department Care Team (Late st Contact Info) Description 08/02/2021 Telephone [facility] Oncology [facility] [facility] [address] [place] [address] Marlen Odom, ZACK Social History Tobacco Use Types Packs/Day Years [...] on file Legal Sex Female 10:31 AM WHOLESALE AND RETAIL MERCHANT Gender Identity Female 02/02/2021 7:25 AM CDT Sexual Orientation Straight 02/02/2021 7: 25 AM CDT documented as of this encounter Miscellaneous Notes * Telephone Encounter - Marlen Odom, RN - 08/02/2021 12:07 PM CST Informed patient. She also stated she arana a hysterectomy scheduled for 08/08/21 ----- Message from Cornelius Garcia DO sent at 08/02/2021 11:34 AM WHOLESALE AND RETAIL MERCHANT ----- Nothing until appt in September All is good Continue with po iron JV ----- Message ----- From: Marlen Odom, RN Sent: 08/02/2021 10:38 AM WHOLESALE AND RETAIL MERCHANT To: Cornelius Garcia DO Repeated labs ESALE AND RETAIL MERCHANT ESALE AND RETAIL MERCHANT documented in this encounter Plan of Treatment Not on file documented as of this encounter Visit Diagnoses Not on filedocumented in this encounter Care Teams Appointment Coordinator Relationship Specialty Start Date End Date Starr Bran PA [address] [place] [address] PCP - General Internal Medicine 12/30/18 Bruce Olea MD [address] [place] [address] Medical Oncologist/Manager Materials Management Medical Oncology 02/17/21 09/25/21 Bibiana Schuler MD [address] [place] [address] Consulting Physician Gastroenterology 05/11/21 documented as of this encounter
--- OUTSIDE RECORDS SUMMARY | 2024-07-18 20:33 | XMS_ITS | Encounter Summary ---
Author Organization [facility] Address [address] [facility] [address] [place] [address] Care Team Providers Care Bulldozer Operator Name Role Phone Starr Bran Primary Care Provider [phone] Bruce Olea MD Unavailable [phone] Bibiana Schuler MD Unavailable [phone] Reason for Visit * Reason Comments Review Medications Encounter Details Date Type Department Care Team (Late st Contact Info) Description 08/29/2021 1:00 PM RECORD FILING CLERK Office Visit [facility] Medical [facility] Family Medicine [address] [facility] [address] [place] [address] Starr Bran PA [address] [facility] [address] [place] [address] H/O total hysterectomy with bilateral salpingo-oophorectomy (BSO) (Primary Dx); Vasomotor symptoms due to menopause; Moderate episode of recurrent major depressive disorder (HCC); History of DVT (deep vein thrombosis); Obesity (BMI 30-39.9); BMI 35.0-35.9,adult Social History Tobacco Use Types [...] on file Legal Sex Female 10:31 AM RECORD FILING CLERK Gender Identity Female 02/02/2021 7:25 AM CDT Sexual Orientation Straight 02/02/2021 7: 25 AM CDT documented as of this encounter Last Filed Vital Signs Vital Sign Reading Time Taken Comments Blood Pressure 140/80 08/29/2021 1:23 PM RECORD FILING CLERK Pulse 82 08/29/2021 1:23 PM RECORD FILING CLERK Temperature 37.2 ??C (99 ??F) 08/29/2021 1:23 PM RECORD FILING CLERK Respiratory Rate - - Oxygen Saturation 97% 08/29/2021 1:23 PM RECORD FILING CLERK Inhaled Oxygen Concentration - - Weight 89.6 kg (197 lb 9.6 oz) 08/29/2021 1:23 P M RECORD FILING CLERK Height 160 cm (5' 3 ) 08/29/2021 1:23 PM RECORD FILING CLERK Body Mass Index 35 08/29/2021 1:23 PM RECORD FILING CLERK documented in this encounter Ordered Prescriptions Prescription Sig Dispense Quantity Refills Last Filled Start Date End Date venlafaxine XR (EFFEXOR-XR) 150 mg 24 hr capsule Take 1 capsule (150 mg total) by mouth daily Take with food. 90 capsule 1 08/29/2021 2 documented in this encounter Progress Notes * Starr Bran PA - 08/29/2021 1:00 PM CST Images from the original note were not included. Subjective/Objective Patient ID: Viktoriya Bell is a 56 y.o. female. Chief Complaint Review Medications HPI 05/31 -- Dand C Ablation 07/01 -- started bleeding again 08/08 - Vaginal Lap HYST with BSO -- Unable to start Estrogen. AUTOMOBILE LIGHTS ASSEMBLER encouraged her to followup to discuss options with PCP. Emotional/Hot flashes/night sweats Patient has been on Effexor XR 75mg. Not seeing enough help with the vasomotor sxs Dr. minaya -- recheck imaging and PE/DVT gone so stopped the Eliquis Mamm - 11/2020 COVID Pfizer x 2 Tdap UTD Colonoscopy 09/2020--->2030 Dr. Harini WHITEHEAD UTD Review of Systems See HPI Vitals: 08/29/21 1323 BP: 140/80 BP Location: Left arm Patient Position: Sitting Pulse: 82 Temp: 37.2 ??C (99 ??F) TempSrc: Oral SpO2: 97% Weight: 89.6 kg (197 lb 9.6 oz) Height: 160 cm (5' 3 ) [...] Diagnoses and all orders for this visit: H/O total hysterectomy with bilateral salpingo-oophorectomy (BSO) (Z90.710, Z90.722, Z90.79) (Primary) Assessment & Plan: Status post hysterectomy with bilateral salpingo oophorectomy. She is unable to tolerate estrogen due to history of DVT and PE. She has been on Effexor 75 mg and is not getting full control of her vasomotor symptoms so will increase to 150 mg. Follow-up in 6-8 weeks to reassess Vasomotor symptoms due to menopause (N95.1) Assessment & Plan: Status post hysterectomy with bilateral salpingo oophorectomy. She is unable to tolerate estrogen due to history of DVT and PE. She has been on Effexor 75 mg and is not getting full control of her vasomotor symptoms so will increase to 150 mg. Follow-up in 6-8 weeks to reassess Moderate episode of recurrent major depressive disorder (HCC) (F33.1) Assessment & Plan: Increase Effexor to 150 mg. Continue to monitor History of DVT (deep vein thrombosis) (Z86.718) Assessment & Plan: Hematology has instructed her to stop the Eliquis. She is to continue to monitor for any return signs or symptoms. Avoid estrogen. Obesity (BMI 30-39.9) (E66.9) Assessment & Plan: Obesity is unchanged. Discussed the patient's BMI. The BMI is above average. BMI management plan is completed. BMI Follow-up includes: nutrition counseling, exercise counseling and education provided. BMI 35.0-35.9,adult (Z68.35) Assessment & Plan: Obesity is unchanged. Discussed the patient's BMI. The BMI is above average. BMI management plan is completed. BMI Follow-up includes: nutrition counseling, exercise counseling and education provided. Other orders - venlafaxine XR (EFFEXOR-XR) 150 mg 24 hr capsule; Take 1 capsule (150 mg total) by mouth daily Take with food. *This note is dictated using Quantance voice recognition software, variances in spelling and vocabulary are possible and unintentional.* Starr Bran PA-C RD FILING CLERK documented in this encounter Miscellaneous Notes * Assessment & Plan Note - Starr Bran PA - 08/31/2021 9:43 PM RECORD FILING CLERK Associated Problem(s): Vasomotor symptoms due to menopause Status post hysterectomy with bilateral salpingo oophorectomy. She is unable to tolerate estrogen due to history of DVT and PE. She has been on Effexor 75 mg and is not getting full control of her vasomotor symptoms so will increase to 150 mg. Follow-up in 6-[address] FILING CLERK * Assessment & Plan Note - Starr Bran PA - 08/31/2021 9:41 PM RECORD FILING CLERK Associated Problem(s): H/O total hysterectomy with bilateral salpingo- oophorectomy (BSO) Status post hysterectomy with bilateral salpingo oophorectomy. She is unable to tolerate estrogen due to history of DVT and PE. She has been on Effexor 75 mg and is not getting full control of her vasomotor symptoms so will increase to 150 mg. Follow-up in 6-[address] FILING CLERK * Assessment & Plan Note - Starr Bran PA - 08/31/2021 9:41 PM RECORD FILING CLERK Associated Problem(s): BMI 35.0-35.9,adult (Resolved 10/16/2021) Obesity is unchanged. Discussed the patient's BMI. The BMI is above average. BMI management plan is completed. BMI Follow-up includes: nutrition counseling, exercise counseling and education provided. RD FILING CLERK * Assessment & Plan Note - Starr Bran PA - 08/31/2021 9:40 PM RECORD FILING CLERK Associated Problem(s): Obesity (BMI 30-39.9) (Resolved 10/16/2021) Obesity is unchanged. Discussed the patient's BMI. The BMI is above average. BMI management plan is completed. BMI Follow-up includes: nutrition counseling, exercise counseling and education provided. RD FILING CLERK * Assessment & Plan Note - Starr Bran PA - 08/31/2021 9:40 PM RECORD FILING CLERK Associated Problem(s): Moderate episode of recurrent major depressive disorder (HCC) Increase Effexor to [address] to monitor [address] FILING CLERK * Assessment & Plan Note - Starr Bran PA - 08/31/2021 9:40 PM RECORD FILING CLERK Associated Problem(s): History of DVT (deep vein thrombosis) Hematology has instructed her to stop the Eliquis. She is to continue to monitor for any return signs or symptoms. Avoid estrogen. RD FILING CLERK documented in this encounter Plan of Treatment Not on file documented as of this encounter Visit Diagnoses Diagnosis H/O total hysterectomy with bilateral salpingo-oophorectomy (BSO)- Primary Vasomotor symptoms due to menopause Moderate episode of recurrent major depressive disorder (HCC) History of DVT (deep vein thrombosis) Obesity (BMI 30-39.9) BMI 35.0-35.9,adult documented in this encounter Discontinued Medications Medication Sig Discontinue Reason Start Date End Da te medroxyPROGESTERone (PROVERA) 10 mg tablet Take 10 mg by mouth daily Therapy completed 05/11/2021 08/29/2021 venlafaxine XR (EFFEXOR-XR) 75 mg 24 hr capsuleIndications:Moder ate episode of recurrent major depressive disorder (HCC) Take 1 capsule (75 mg total) by mouth daily Take with food. 05/17/2021 08/29/2021 apixaban (Eliquis) 5 mg tabletIndications:DVT (deep venous thrombosis) (CMS/HCC) (HCC) Take 1 tablet (5 mg total) by mouth every 12 (twelve) hours 02/15/2021 08/29/2021 documented as of this encounter Historical Medications * This list may reflect changes made after this encounter. aspirin 81 mg enteric coated tablet Take 1 tablet (81 mg total) by mouth daily 05/07/2024 added in this encounter Care Teams Bulldozer Operator Relationship Specialty Start Date End Date Starr Bran PA [address] [place] [address] PCP - General Internal Medicine 12/30/18 Bruce Olea MD [address] [place] [address] Medical Oncologist/Director Of Student Life Medical Oncology 02/17/21 09/25/21 Bibiana Schuler MD [address] [place] [address] Consulting Physician Gastroenterology 05/11/21 documented as of this encounter
--- OUTSIDE RECORDS SUMMARY | 2024-07-18 20:33 | XMS_ITS | Encounter Summary ---
Author Organization [facility] Address [address] [facility] [address] [place] [address] Phone Care Team Providers Care Solderer Dipper Name Role Phone Starr Bran Primary Care Provider [phone] Bibiana Schuler MD Unavailable [phone] Cornelius Garcia DO Unavailable [phone] Encounter Details Date Type Department Care Team (Late st Contact Info) Description 09/26/2021 Telephone [facility] Oncology [employer] [facility] [address] [place] [address] Marlen Odom RN Social History Tobacco Use Types Packs/Day [...] on file Legal Sex Female 10:31 AM VOICE INSTRUCTOR Gender Identity Female 02/02/2021 7:25 AM CDT Sexual Orientation Straight 02/02/2021 7: 25 AM CDT documented as of this encounter Miscellaneous Notes * Telephone Encounter - Marlen Odom, RN - 09/26/2021 11:05 AM CST Patient called asking if blood work could be ordered before her visit with Dr. Garcia on 10/06/21.She states she did have surgery and is still feeling pretty weak and tired. She also gets B12 injections at her PCP office and asked if Vitamin B 12 level can be checks. Orders placed for [facility] andpatient will have drawn prior to her appointment E INSTRUCTOR documented in this encounter Plan of Treatment Not on file documented as of this encounter Procedures Procedure Name Priority Date/Time Associated Diagnosis Comments IRON PROFILE W/ IBC Routine 10/03/2021 9 :10 AM VOICE INSTRUCTOR Anemia, unspecified type CBC WITH AUTO DIFFERENTIAL Routine 10/03/2021 9:10 AM VOICE INSTRUCTOR Anemia, unspecified type RETICULOCYTES Routine 10/03/2021 9:10 AM VOICE INSTRUCTOR Anemia, unspecified type FERRITIN Routine 10/03/2021 9:10 AM VOICE INSTRUCTOR Anemia, unspecified type VITAMIN B12 Routine 10/03/2021 9:10 AM VOICE INSTRUCTOR Anemia, unspecified type documented in this encounter Results * Vitamin B12 (10/03/2021 9:10 AM VOICE INSTRUCTOR) Vitamin B12 281 232 - 1,245 pg/mL [facility] - 01 Blood specimen (specimen) 10/03/2021 9:10 AM VOICE INSTRUCTOR 10/03/2021 Narrative [facility] - 10/04/2021 5:07 AM VOICE INSTRUCTOR Performed at: ??01 - [facility] [address] ??[id number] Insurance Clerk: Parveen Lofton PhD, Phone: ??[phone] us Cornelius Garcia DO LAB BLOOD ORDERABLES Final R esult Performing Organization Address [facility]/ZIP Co de Phone Number [facility] - * (ABNORMAL) Reticulocyte Count (10/03/2021 9:10 AM VOICE INSTRUCTOR) Pathologist [facility] Reticulocyte Count 3.1(H) 0.6 - 2.6 % [facility] - 01 Blood specimen (specimen) 10/03/2021 9:10 AM VOICE INSTRUCTOR 10/03/2021 Narrative [facility] - 10/04/2021 5:07 AM VOICE INSTRUCTOR Performed at: ??01 - [facility] ??[id number] Insurance Clerk: Parveen Lofton PhD, Phone: ??[phone] Cornelius Garcia DO LAB BLOOD ORDERABLES Final R esult Performing Organization Address [facility] Co de Phone Number [facility] - * Ferritin (10/03/2021 9:10 AM VOICE INSTRUCTOR) [facility] Ferritin 19 15 - 150 ng/mL [facility] - 01 Blood specimen (specimen) 10/03/2021 9:10 AM VOICE INSTRUCTOR 10/03/2021 Narrative [facility] - 10/04/2021 5:07 AM VOICE INSTRUCTOR Performed at: ?? - [facility] [address] ??[id number] Insurance Clerk: Parveen Lofton PhD, Phone: ??[phone] Cornelius Garcia DO LAB BLOOD ORDERABLES Final R esult Performing Organization Address [facility]/ZIP Co de Phone Number [facility] - 01 * (ABNORMAL) Iron profile w/ IBC (10/03/2021 9:10 AM VOICE INSTRUCTOR) Pathologist [facility] Iron Bind.Cap.(TIBC) 345 250 - 450 ug/dL [facility] - 01 UIBC 317 131 - 425 ug/dL [facility] - 01 Iron 28 27 - 159 ug/dL [facility] - 01 Iron saturation 8(LL) 15 - 55 % [facility] - 01 Blood specimen (specimen) 10/03/2021 9:10 AM VOICE INSTRUCTOR 10/03/2021 Narrative [facility] - 10/04/2021 5:07 AM VOICE INSTRUCTOR Performed at: ??01 - [facility], [place], [place] ??[id number] Insurance Clerk: Parveen Lofton PhD, Phone: ??[phone] Cornelius Garcia DO LAB BLOOD ORDERABLES Final R esult [facility] - 01 * (ABNORMAL) CBC with auto differential (10/03/2021 9:10 AM VOICE INSTRUCTOR) WBC 4.5 3.4 - 10.8 x10E3/uL [facility] - 01 RBC 3.91 3.77 - 5.28 x10E6/uL [facility] - 01 Hgb 11.1 11.1 - 15.9 g/dL [facility] - 01 Hct 33.9(L) 34.0 - 46.6 % [facility] - 01 MCV 87 79 - 97 fL [facility] - 01 MCH 28.4 26.6 - 33.0 pg [facility] - 01 MCHC 32.7 31.5 - 35.7 g/dL [facility] - 01 Rdw 13.7 11.7 - 15.4 % [facility] - 01 Platelets 272 150 - 450 x10E3/uL [facility] - 01 Neutrophils pct 71 Not Estab. % [facility] - 01 Lymphs pct 22 Not Estab. % [facility] - 01 Monocytes pct 7 Not Estab. % [facility] - 01 Eosinophils pct 0 Not Estab. % [facility] - 01 Basophil pct 0 Not Estab. % [facility] - 01 Neutrophil abs 3.1 1.4 - 7.0 x10E3/uL [facility] - 01 Lymphs (Absolute) 1.0 0.7 - 3.1 x10E3/uL [facility] - 01 Monocyte abs 0.3 0.1 - 0.9 x10E3/uL [facility] - 01 Eosinophils, abs 0.0 0.0 - 0.4 x10E3/uL [facility] - 01 Basophils, abs 0.0 0.0 - 0.2 x10E3/uL [facility] - 01 Immature Granulocytes 0 Not Estab. % [facility] - 01 Immature Grans (Abs) 0.0 0.0 - 0.1 x10E3/uL [facility] - 01 Blood specimen (specimen) 10/03/2021 9:10 AM VOICE INSTRUCTOR 10/03/2021 Narrative [facility] - 10/04/2021 5:07 AM VOICE INSTRUCTOR Performed at: ??01 - [facility] [address] ??[id number] Insurance Clerk: Parveen Lofton PhD, Phone: ??[phone] Cornelius Garcia DO LAB BLOOD ORDERABLES Final R esult [facility] - 01 documented in this encounter Visit Diagnoses Diagnosis Anemia, unspecified type- Primary documented in this encounter Care Teams Solderer Dipper Relationship Specialty Start Date End Date Starr Bran PA [address] [place] [address] PCP - General Internal Medicine 12/30/18 Bibiana Schuler MD [address] [place] [address] Consulting Physician Gastroenterology 05/11/21 Cornelius Garcia DO [address] [place] [address] MEDICAL ONCOLOGY, [address] [place] [address] Medical Oncologist/Hematologis t Hematology and Oncology 09/26/21 documented as of this encounter
--- OUTSIDE RECORDS SUMMARY | 2024-07-18 20:33 | XMS_ITS | Encounter Summary ---
Author Organization [facility] Address [address] [facility] [address] [place] [address] Care Team Providers Care Cardiac Sonographer Name Role Phone Starr Bran Primary Care Provider [phone] Bibiana Schuler MD Unavailable [phone] Cornelius Garcia DO Unavailable [phone] Reason for Visit * Reason Comments Injections Patient is here for a B12 injections. Encounter Details Date Type Department Care Team (Latest Contact Info) Description 01/11/2022 9:00 AM CDT Clinical Support [facility] Medical [facility] Family Medicine [address] [facility] [address] [place] [address] Low vitamin B12 level (Primary [...] on file Legal Sex Female 10:31 AM RESIDENT CARE MANAGER Gender Identity Female 02/02/2021 7:25 AM [...] 1,000 mcg 1,000 mcg, intramuscular, Once, On Daphne 01/11/22 at 0945, For 1 doseIndications:Low vitamin B12 level Given 01/11/2022 9:07 AM CDT 1,000 mcg Right Deltoid documented in this encounter Care Teams Cardiac Sonographer Relationship Specialty Start Date End Date Starr Bran PA [address] [place] [address] PCP - General Internal Medicine 12/30/18 Bibiana Schuler MD [address] [facility] [address] [place], [place] [id number] Consulting Physician Gastroenterology 05/11/21 Cornelius Garcia DO [address] [place] [address] MEDICAL ONCOLOGY, [facility] [address] [place] [address] Medical Oncologist/Hematologis t Hematology and Oncology 09/26/21 documented as of this encounter
--- OUTSIDE RECORDS SUMMARY | 2024-07-18 20:33 | XMS_ITS | Encounter Summary ---
Author Organization [facility] Address [address] [address] Care Team Providers Care Armament Aircraft Mechanic Name Role Phone Starr Bran Primary Care Provider [phone] Bibiana Schuler MD Unavailable [phone] Cornelius Garcia DO Unavailable [phone] Reason for Referral * Diagnostic Imaging (Routine) - Closed Specialty Diagnoses / Procedures Referred By Contac t Referred To Contact Radiology Diagnoses Breast cancer screening by mammogram Procedures Screening Mammogram Bilateral W Stuart Starr Bran PA [address] [place] [address] Phone: tel: fax: [facility] Facility Referral ID Status Reason Start Date Expiration Date Visits Re quested Visits Authorized [id number] Closed 01/16/2022 02/15/2023 1 1 Reason for Visit * Reason Comments Follow-up Encounter Details Date Type Department Care Team (Late Contact Info) Description 01/16/2022 9:30 AM CDT Office Visit [facility] Family Medicine [address] [place] [address] Starr Bran PA [address] [place] [address] Vasomotor symptoms due to menopause (Primary Dx); Iron deficiency anemia due to chronic blood loss; Other fatigue; Breast cancer screening by mammogram; Moderate episode of recurrent major depressive disorder (HCC); Low vitamin B12 level; BMI 35.0-35.9,adult; Morbid obesity (CMS/HCC) (HCC) Social History Tobacco Use Types Packs/Day Years Used Date Smoking Tobacco: Never Smokeless Tobacco: Never AUDIT-C Answer Date Recorded Q1: How often do you have a drink containing alc ohol? Monthly or less 01/16/2022 Q2: How many drinks containi ng alcohol do you have on a typical day when you are drinking? 1 or 2 01/16/2022 Q3: How often do you have si x or more drinks on one occasion? Never 01/16/2022 PHQ-2 Answer Date Recorded PHQ-2 Total Score (If total score is 3 or more points, staff should administer the PHQ-9) 0 12/14/2020 Comments Unknown Sex and Gender Information Value Date Recorded Sex Assigned at Not on file Legal Sex Female 10:31 AM OB TECH Gender Identity Female 02/02/2021 7:25 AM CDT Sexual Orientation Straight 02/02/2021 7: 25 AM CDT documented as of this encounter Last Filed Vital Signs Vital Sign Reading Time Taken Comments Blood Pressure 120/76 01/16/2022 9:40 AM CDT Pulse 80 01/16/2022 9:40 AM CDT Temperature 36.9 ??C (98.4 ??F) 01/16/2022 9:40 AM CD T Respiratory Rate - - Oxygen Saturation 98% 01/16/2022 9:40 AM CDT Inhaled Oxygen Concentration - - Weight 91 kg (200 lb 11.2 oz) 01/16/2022 9:40 AM CDT Height 160 cm (5' 3 ) 01/16/2022 9:40 AM CDT Body Mass Index 35.55 01/16/2022 9:40 AM CDT documented in this encounter Ordered Prescriptions Prescription Sig Dispense Quantity Refills Last Filled Start Date End Date venlafaxine XR (EFFEXOR-XR) 75 mg 24 hr capsule Take 3 capsules (225 mg total) by mouth daily Take with food. 270 capsule 1 01/16/2022 2 documented in this encounter Progress Notes * Starr Bran PA - 01/16/2022 9:30 AM CDT Images from the original note were not included. Subjective/Objective Patient ID: Viktoriya Bell is a 56 y.o. female. Chief Complaint Follow-up HPI Still having multiple hot flashe episodes and night sweats. On Effexor 150mg and thinks helping but still break thru stxs. Increased joint pain also. Also on Black Cohash, Evening primrose. Still taking FeSo4 bid with Vitamin C> Still tired and dragging. HYST was in 07/2021 so no active bleeding since. SOB with activity. Having tightness in her muscles. She is having random episodes of dizziness. Hasn't had labs recently. Has continued with B12 injections q month. Follows with Dr. Griggs for anemia/iron infusions. Review of Systems See HPI Vitals: 01/16/22 0940 BP: 120/76 BP Location: Left arm Patient Position: Sitting Pulse: 80 Temp: 36.9 ??C (98.4 ??F) TempSrc: Oral SpO2: 98% Weight: 91 kg (200 lb 11.2 oz) Height: 160 cm (5' [...] to menopause (N95.1) (Primary) Assessment & Plan: Will increase the Effexor to 225 mg. Will see if this helps with the vasomotor symptoms as well as her depression Iron deficiency anemia due to chronic blood loss (D50.0) Assessment & Plan: Recheck labs. Continue with iron supplementation and B12 supplementation. Follow-up pending the results if she is having fatigue and similar symptoms to when her iron is low Orders: - CBC with auto differential; Future - Iron profile w/ IBC; Future - Ferritin; Future Other fatigue (R53.83) Assessment & Plan: Probably multifactorial. Check labs and followup to re-evaluate Orders: - TSH; Future - Comprehensive metabolic panel; Future Breast cancer screening by mammogram (Z12.31) Assessment & Plan: Mammogram order provided Orders: - Screening Mammogram Bilateral W Stuart; Future Moderate episode of recurrent major depressive disorder (HCC) (F33.1) Assessment & Plan: Increase the venlafaxine to 225 mg daily. Will see if this helps with her vasomotor symptoms as well as continue to manage her depression symptoms. Low vitamin B12 level (E53.8) Assessment & Plan: Continue with B12 supplementation. BMI 35.0-35.9,adult (Z68.35) Assessment & Plan: Discussed [...] for patients with a BMI between 35.00-39.99. Other orders - venlafaxine XR (EFFEXOR-XR) 75 mg 24 hr capsule; Take 3 capsules (225 mg total) by mouth daily Take with food. *This note is dictated using [employer] voice recognition software, variances in spelling and vocabulary are possible and unintentional.* Starr Bran PA-C documented in this encounter Miscellaneous Notes * Assessment & Plan Note - Starr Bran PA - 01/21/2022 9:20 PM CDT Associated Problem(s): Breast cancer screening by mammogram (Resolved 07/30/2022) Mammogram order provided * Assessment & Plan Note - Starr Bran PA - 01/21/2022 9:19 PM CDT Associated Problem(s): BMI 35.0-35.9,adult (Resolved 05/17/2022) Discussed the patient's BMI. The BMI is above average. BMI management plan is completed. BMI Follow-up includes: nutrition counseling, exercise counseling and education provided. * Assessment & Plan Note - Starr Bran PA - 01/21/2022 9:19 PM CDT Associated Problem(s): Morbid obesity (HCC) (Resolved 05/17/2022) Discussed the patient's BMI. The BMI is above average. BMI management plan is completed. BMI Follow-up includes: nutrition counseling, exercise counseling and education provided. Patient has an obesity-related condition (not limited to: hypertension, obstructive sleep apnea, osteoarthritis, hyperlipidemia, diabetes, etc.). Therefore, morbid obesity may be documented for patients with a BMI between 35.00-39.99. * Assessment & Plan Note - Starr Bran PA - 01/21/2022 9:19 PM CDT Associated Problem(s): Vasomotor symptoms due to menopause Will increase the Effexor to 225 mg. Will see if this helps with the vasomotor symptoms as well as her depression * Assessment & Plan Note - Starr Bran PA - 01/21/2022 9:18 PM CDT Associated Problem(s): Moderate episode of recurrent major depressive disorder (HCC) Increase the venlafaxine to 225 mg daily. Will see if this helps with her vasomotor symptoms as well as continue to manage her depression symptoms. * Assessment & Plan Note - Satrr Bran PA - 01/21/2022 9:18 PM CDT Associated Problem(s): Low vitamin B12 level Continue with B12 supplementation. * Assessment & Plan Note - Starr Bran PA - 01/21/2022 9:18 PM CDT Associated Problem(s): Iron deficiency anemia due to chronic blood loss Recheck labs. Continue with iron supplementation and B12 supplementation. Follow-up pending the results if she is having fatigue and similar symptoms to when her iron is low * Assessment & Plan Note - Starr Bran PA - 01/21/2022 9:17 PM CDT Associated Problem(s): Other fatigue Probably multifactorial. Check labs and followup to re-evaluate documented in this encounter Plan of Treatment Scheduled Orders Name Type Priority Associated Diagnoses Orde r Schedule Screening Mammogram Bilateral W Stuart Imaging Schedule Routine, Read Routine (OP Routine) Breast cancer screening by mammogram Expected: 01/16/2022, Expires: 01/16/2023 documented as of this encounter Procedures Procedure Name Priority Date/Time Associated Diagnosis Comments IRON PROFILE W/ IBC Routine 01/16/2022 2 :03 PM CDT Iron deficiency anemia due to chronic blood loss CBC WITH AUTO DIFFERENTIAL Routine 01/16/2022 2:03 PM CDT Iron deficiency anemia due to chronic blood loss TSH Routine 01/16/2022 2:03 PM CDT Other fatigue FERRITIN Routine 01/16/2022 2:03 PM CDT Iron deficiency anemia due to chronic blood loss COMPREHENSIVE METABOLIC PANEL Routine 01/16/2022 2:03 PM CDT Other fatigue documented in this encounter Results * (ABNORMAL) Ferritin (01/16/2022 2:03 PM CDT) [facility] Ferritin 13(L) 15 - 150 ng/mL [facility] - 01 Blood specimen (specimen) 01/16/2022 2:03 PM CDT 01/16/2022 Narrative [facility] - 01/18/2022 4:10 PM CDT Performed at: ??01 - [facility] [address] ??[id number] Public Health Program Manager: Parveen Lofton PhD, Phone: ??[phone] Starr SALVADOR LAB BLOOD ORDERABLES Final Result [facility] - 01 * (ABNORMAL) Iron profile w/ IBC (01/16/2022 2:03 PM CDT) [facility] Iron Bind.Cap.(TIBC) 369 250 - 450 ug/dL [facility] - 01 UIBC 156 131 - 425 ug/dL [facility] - 01 Iron 213(H) 27 - 159 ug/dL [facility] - 01 Iron saturation 58(H) 15 - 55 % [facility] - 01 Blood specimen (specimen) 01/16/2022 2:03 PM CDT 01/16/2022 Narrative [facility] - 01/18/2022 4:10 PM CDT Performed at: ??01 - [facility] [address] ??[id number] Public Health Program Manager: Parveen Lofton PhD, Phone: ??[phone] Starr SALVADOR LAB BLOOD ORDERABLES Final Result [facility] - 01 * (ABNORMAL) Comprehensive metabolic panel (01/16/2022 2:03 PM CDT) Glucose 126(H) 65 - 99 mg/dL [facility] - 01 BUN 8 6 - 24 mg/dL [facility] - 01 Creatinine, Serum 0.62 0.57 - 1.00 mg/dL [facility] - 01 eGFR 104 >59 mL/min/1.7 3 [facility] - 01 BUN/creat ratio 13 9 - 23 [facility] - 01 Sodium 141 134 - 144 mmol/L [facility] - 01 Potassium, sr 3.9 3.5 - 5.2 mmol/L [facility] - 01 Chloride 106 96 - 106 mmol/L [facility] - 01 CO2 22 20 - 29 mmol/L [facility] - 01 Calcium 9.2 8.7 - 10.2 mg/dL [facility] - 01 Protein, sr 6.4 6.0 - 8.5 g/dL [facility] - 01 Albumin 4.2 3.8 - 4.9 g/dL [facility] - 01 Globulin, Total 2.2 1.5 - 4.5 g/dL [facility] - 01 A/G Ratio 1.9 1.2 - 2.2 [facility] - 01 Bilirubin, Total 0.2 0.0 - 1.2 mg/dL [facility] - 01 Alk phos 76 44 - 121 IU/L [facility] - 01 AST 21 0 - 40 IU/L [facility] - 01 ALT 26 0 - 32 IU/L [facility] - 01 Blood specimen (specimen) 01/16/2022 2:03 PM CDT 01/16/2022 Narrative [facility] - 01/18/2022 4:10 PM CDT Performed at: ??01 - [facility] [address] ??[id number] Public Health Program Manager: Parveen Lofton PhD, Phone: ??[phone] Starr SALVADOR LAB BLOOD ORDERABLES Final Result Performing Organization Address [facility]/ZIP Co de Phone Number [facility] - * TSH (01/16/2022 2:03 PM CDT) [facility] TSH 1.770 0.450 - 4.500 uIU/mL [facility] - 01 Blood specimen (specimen) 01/16/2022 2:03 PM CDT 01/16/2022 Narrative [facility] - 01/18/2022 4:10 PM CDT Performed at: ?? [address] ??[id number] Public Health Program Manager: Parveen Lofton PhD, Phone: ??[phone] Starr SALVADOR LAB BLOOD ORDERABLES Final Result Performing Organization Address [facility] de Phone Number [facility] - * (ABNORMAL) CBC with auto differential (01/16/2022 2:03 PM CDT) [facility] WBC 4.6 3.4 - 10.8 x10E3/uL [facility] - 01 RBC 3.55(L) 3.77 - 5.28 x10E6/uL [facility] - 01 Hgb 9.5(L) 11.1 - 15.9 g/dL [facility] - 01 Hct 31.4(L) 34.0 - 46.6 % [facility] - 01 MCV 89 79 - 97 fL [facility] - 01 MCH 26.8 26.6 - 33.0 pg [facility] - 01 MCHC 30.3(L) 31.5 - 35.7 g/dL [facility] - 01 Rdw 13.5 11.7 - 15.4 % [facility] - 01 Platelets 280 150 - 450 x10E3/uL [facility] - 01 Neutrophils pct 74 Not Estab. % [facility] - 01 Lymphs pct 19 Not Estab. % [facility] - 01 Monocytes pct 7 Not Estab. % [facility] - 01 Eosinophils pct 0 Not Estab. % [facility] - 01 Basophil pct 0 Not Estab. % [facility] - 01 Neutrophil abs 3.4 1.4 - 7.0 x10E3/uL [facility] - 01 Lymphs (Absolute) 0.9 0.7 - 3.1 x10E3/uL [facility] - 01 Monocyte abs 0.3 0.1 - 0.9 x10E3/uL [facility] - 01 Eosinophils, abs 0.0 0.0 - 0.4 x10E3/uL [facility] - 01 Basophils, abs 0.0 0.0 - 0.2 x10E3/uL [facility] - 01 Immature Granulocytes 0 Not Estab. % [facility] - 01 Immature Grans (Abs) 0.0 0.0 - 0.1 x10E3/uL [facility] - 01 Blood specimen (specimen) 01/16/2022 2:03 PM CDT 01/16/2022 Narrative [facility] - 01/18/2022 4:10 PM CDT Performed at: ??01 - [facility] [address] ??[id number] Public Health Program Manager: Parveen Lofton PhD, Phone: ??[phone] Starr SALVADOR LAB BLOOD ORDERABLES Final Result Performing Organization Address City/State/[facility] Co de Phone Number [facility] - 01 documented in this encounter Visit Diagnoses Diagnosis Vasomotor symptoms due to menopause- Primary Iron deficiency anemia due to chronic blood loss Iron deficiency anemia secondary to blood loss (chronic) Other fatigue Breast cancer screening by mammogram Moderate episode of recurrent major depressive disorder (HCC) Low vitamin B12 level BMI 35.0-35.9,adult Morbid obesity (HCC) Morbid obesity documented in this encounter Discontinued Medications Medication Sig Discontinue Reason Start Date End Da te venlafaxine XR (EFFEXOR-XR) 150 mg 24 hr capsule Take 1 capsule (150 mg total) by mouth daily Take with food. 08/29/2021 01/16/2022 documented as of this encounter Care Teams Armament Aircraft Mechanic Relationship Specialty Start Date End Date Starr Bran PA [address] [facility] [address] [place] [id number] PCP - General Internal Medicine 12/30/18 Bibiana Schuler MD [address] [facility] [address] [place] [address] Consulting Physician Gastroenterology 05/11/21 Cornelius Garcia DO [address] [place] [address] MEDICAL ONCOLOGY, [facility] [address] [place] [address] Medical Oncologist/Hematologis t Hematology and Oncology 09/26/21 documented as of this encounter
--- OUTSIDE RECORDS SUMMARY | 2024-07-18 20:33 | XMS_ITS | Encounter Summary ---
Author Organization [facility] Healthcare Address [address] [place] [address] Care Team Providers Care Buyer Internship Name Role Phone Starr Bran Primary Care Provider [phone] Bruce Olea MD Unavailable [phone] Bibiana Schuler MD Unavailable [phone] Reason for Referral * Diagnostic Imaging (Routine) - Closed Specialty Diagnoses / Procedures Referred By Hung gao Referred To Contact Diagnoses History of DVT (deep vein thrombosis) Procedures US Vein Duplex Lower Extremity Bilateral Complete Cornelius Garcia DO [facility] [address] Phone: tel: fax: [address] [address] Referral ID Status Reason Start Date Expiration Date Visits Re quested Visits Authorized [id number] Closed 07/07/2021 08/06/2022 1 1 MOTIVE PARTS COUNTER ASSISTANT Reason for Visit * Diagnostic Imaging (Routine) - Closed Specialty Diagnoses / Procedures Referred By Contlaura gao Referred To Contact Diagnoses History of DVT (deep vein thrombosis) Procedures US Vein Duplex Lower Extremity Bilateral Complete Cornelius Garcia DO [facility] [address] Phone: tel: fax: [facility] [address] [place] [address] Referral ID Status Reason Start Date Expiration Date Visits Re quested Visits Authorized [id number] Closed 07/07/2021 08/06/2022 1 1 Encounter Details Date Type Department Care Team (Latest Contact Info) Description 07/12/2021 11:00 AM AUTOMOTIVE PARTS COUNTER ASSISTANT - 07/12/2021 11:59 PM AUTOMOTIVE PARTS COUNTER ASSISTANT Hospital Encounter [facility] [address] [place] [address] History of DVT (deep vein thrombosis) Discharge Disposition: Discharge to home or self [...] on file Legal Sex Female 10:31 AM AUTOMOTIVE PARTS COUNTER ASSISTANT Gender Identity Female 02/02/2021 7:25 AM CDT Sexual Orientation Straight 02/02/2021 7: 25 AM CDT documented as of this encounter Medications at Time of Discharge multivitamin tablet daily apixaban (Eliquis) 5 mg tabletIndications :DVT (deep venous thrombosis) (CMS/HCC) (HCC) Take 1 tablet (5 mg total) by mouth every 12 (twelve) hours 180 tablet 1 02/15/2021 08/29/2021 FeroSuL 325 mg (65 mg iron) tabletIndications :Low vitamin B12 level TAKE 1 TABLET BY MOUTH TWICE DAILY 60 tablet 2 05/02/2021 08/10/2021 lisinopriL (PRINIVIL,ZESTRIL ) 10 mg tablet Take 1 tablet (10 mg total) by mouth daily 90 tablet 3 05/17/2021 04/24/2022 medroxyPROGESTERo ne (PROVERA) 10 mg tablet Take 10 mg by mouth daily 05/11/2021 08/29/2021 venlafaxine XR (EFFEXOR-XR) 75 mg 24 hr capsuleIndication s:Moderate episode of recurrent major depressive disorder (HCC) Take 1 capsule (75 mg total) by mouth daily Take with food. 90 capsule 1 05/17/2021 08/29/2021 documented as of this encounter Discharge Disposition Disposition Code Departure Means Destination Discharge to home or self care documented in this encounter Plan of Treatment Not on file documented as of this encounter Procedures Procedure Name Priority Date/Time Associated Diagnosis Comments US VEIN DUPLEX LOWER EXTREMITY BILATERAL COMPLETE Schedule Routine, Read Routine (OP Routine) 07/12/2021 11:34 AM AUTOMOTIVE PARTS COUNTER ASSISTANT History of DVT (deep vein thrombosis) documented in this encounter Results * US Vein Duplex Lower Extremity Bilateral Complete (07/12/2021 11:34 AM AUTOMOTIVE PARTS COUNTER ASSISTANT) Anatomical Region Laterality Modality Vascular Bilateral Ultrasound 07/12/2021 Narrative 07/14/2021 3:20 PM AUTOMOTIVE PARTS COUNTER ASSISTANT [employer] Job ID: [id number] [facility] Document ID: [id number] Dictated date/time: [id number] REASON FOR STUDY Previous DVT on the right side. ??No thrombus seen in the common femoral, superficial femoral, popliteal, posterior tibial, peroneal or greater saphenous veins bilaterally. IMPRESSION No evidence of deep vein thrombosis in either lower extremity. ??The previous right lower extremity deep vein thrombosis has resolved. JOB ID/VF JOB ID: [id number] Cornelius Garcia DO [facility] PROCEDURES Final Resu lt documented in this encounter Visit Diagnoses Diagnosis History of DVT (deep vein thrombosis) documented in this encounter Care Teams Buyer Internship Relationship Specialty Start Date End Date Starr Bran PA [address] [place] [address] PCP - General Internal Medicine 12/30/18 Bruce Olea MD [address] [place] [address] Medical Oncologist/Buggy Runner Medical Oncology 02/17/21 09/25/21 Bibiana Schuler MD [address] [place] [address] Consulting Physician Gastroenterology 05/11/21 documented as of this encounter
--- OUTSIDE RECORDS SUMMARY | 2024-07-18 20:33 | XMS_ITS | Encounter Summary ---
Author Organization [facility] Address [address] [place] [address] Care Team Providers Care Ammunition And Explosives Handler Name Role Phone Starr Bran Primary Care Provider [phone]- [phone] Bibiana Schuler MD Unavailable [phone] Cornelius Garcia DO Unavailable [phone] Encounter Details Date Type Department Care Team (Late st Contact Info) Description 12/04/2021 Telephone [facility] Family Medicine [address] [place] [address] Starr Bran PA [address] [place] [address] Social History Tobacco Use Types [...] on file Legal Sex Female 10:31 AM MERCHANT MILLER Gender Identity Female 02/02/2021 7:25 AM CDT Sexual Orientation Straight 02/02/2021 7: 25 AM CDT documented as of this encounter Miscellaneous Notes * Telephone Encounter - Norma Pena - 12/04/2021 1:32 PM CDT error documented in this encounter Plan of Treatment Not on file documented as of this encounter Visit Diagnoses Not on filedocumented in this encounter Care Teams Ammunition And Explosives Handler Relationship Specialty Start Date End Date Starr Bran PA [address] [place] [address] PCP - General Internal Medicine 12/30/18 Bibiana Schuler MD [address] [place] [address] Consulting Physician Gastroenterology 05/11/21 Cornelius Garcia DO [address] [place] [address] MEDICAL ONCOLOGY, [address] [place] [address] Medical Oncologist/Hematologis t Hematology and Oncology 09/26/21 documented as of this encounter
--- OUTSIDE RECORDS SUMMARY | 2024-07-18 20:33 | XMS_ITS | Encounter Summary ---
Author Organization [facility] Address [address] [facility] [address] [place] [address] Care Team Providers Care Reporting Coordinator Name Role Phone Starr Bran Primary Care Provider [phone] Bruce Olea MD Unavailable [phone] Bibiana Schuler MD Unavailable [phone] Encounter Details Date Type Department Care Team (Late st Contact Info) Description 08/29/2021 Orders Only [facility] Family Medicine [address] [facility] [address] [place] [address] Bibiana Schuler MD [address] [facility] [address] [place] [address] Social History Tobacco Use Types Packs/Day Years [...] on file Legal Sex Female 10:31 AM PROMOTIONS INTERN Gender Identity Female 02/02/2021 7:25 AM CDT Sexual Orientation Straight 02/02/2021 7: 25 AM CDT documented as of this encounter Plan of Treatment Not on file documented as of this encounter Procedures Procedure Name Priority Date/Time Associated Diagnosis Comments HM COLONOSCOPY Routine 10/12/2020 documented in this encounter Results * HM COLONOSCOPY (10/12/2020) Bibiana Schuler MD HEALTH MAINTENANCE Final Result documented in this encounter Visit Diagnoses Not on filedocumented in this encounter Care Teams Reporting Coordinator Relationship Specialty Start Date End Date Starr Bran PA [address] [place] [address] PCP - General Internal Medicine 12/30/18 Bruce Olea MD [address] [place] [address] Medical Oncologist/Foam Molder Medical Oncology 02/17/21 09/25/21 Bibiana Schuler MD [address] [place] [address] Consulting Physician Gastroenterology 05/11/21 documented as of this encounter
--- OUTSIDE RECORDS SUMMARY | 2024-07-18 20:33 | XMS_ITS | Encounter Summary ---
Author Organization [facility] Address [address] [facility] [address] [place] [address] Care Team Providers Care Nibbler Operator Name Role Phone Starr Bran Primary Care Provider [phone] Bibiana Schuler MD Unavailable Cornelius Garcia DO Unavailable [phone] Reason for Visit * Reason Comments Immunizations Encounter Details Date Type Department Care Team (Latest Contact Info) Description 02/13/2022 8:00 AM CDT Clinical Support [facility] Family Medicine [address] [facility] [address] [place] [address] Low vitamin B12 level (Primary [...] on file Legal Sex Female 10:31 AM DISTRIBUTOR CLEANER Gender Identity Female 02/02/2021 7:25 AM [...] (Vitamin B-12 ) injection 1,000 mcg 1 02/13/2022 documented in this encounter Care Teams Nibbler Operator Relationship Specialty Start Date End Date Starr Bran PA [address] [place] [address] PCP - General Internal Medicine 12/30/18 Bibiana Schuler MD [address] [place] [address] Consulting Physician Gastroenterology 05/11/21 Cornelius Garcia DO [address] [place] [address] MEDICAL ONCOLOGY, [address] [place] [address] Medical Oncologist/Hematologis t Hematology and Oncology 09/26/21 documented as of this encounter
--- OUTSIDE RECORDS SUMMARY | 2024-07-18 20:33 | XMS_ITS | Encounter Summary ---
Author Organization [facility] Address [address] [facility] [address] [place] [address] Phone Care Team Providers Care Rebar Fabricator Name Role Phone Starr Bran Primary Care Provider [phone] Bruce Olea MD Unavailable [phone] Bibiana Schuler MD Unavailable Encounter Details Date Type Department Care Team (Late st Contact Info) Description 07/31/2021 Documentation [facility] Oncology [address] [address] Cornelius Garcia DO [address] [facility] [address] [place] [address] Social History Tobacco Use Types Packs/Day Years [...] on file Legal Sex Female 10:31 AM 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 Recommendations: 1. Patient can discontinue Eliquis. 2. Convert over to 81 mg of aspirin daily. 3. Continue with current follow-up. Left [employer] message and voicemail. Cornelius Garcia D.O. Manager Housekeeping NTER documented in this encounter Plan of Treatment Not on file documented as of this encounter Visit Diagnoses Not on filedocumented in this encounter Care Teams Rebar Fabricator Relationship Specialty Start Date End Date Starr Bran PA [address] [place] [address] PCP - General Internal Medicine 12/30/18 Bruce Olea MD [address] [place] [address] Medical Oncologist/Stud Master/[facility] 02/17/21 09/25/21 Bibiana Schuler MD [address] [place] [address] Consulting Physician Gastroenterology 05/11/21 documented as of this encounter
--- OUTSIDE RECORDS SUMMARY | 2024-07-18 20:33 | XMS_ITS | Encounter Summary ---
Author Organization [facility] Address [address] [facility] [address] [place] [address] Care Team Providers Care Bond Analyst Name Role Phone Starr Bran Primary Care Provider [phone] Bibiana Schuler MD Unavailable [phone] Cornelius Minaya DO Unavailable [phone] Encounter Details Date Type Department Care Team (Late st Contact Info) Description 10/16/2021 9:00 AM CDT Office Visit [facility] Family Medicine [address] [place] [address] Starr Bran PA [address] [place] [address] Annual physical exam (Primary Dx); Vitamin D deficiency; Essential hypertension; Hyperglycemia; Vasomotor symptoms due to menopause; Iron deficiency anemia due to chronic blood loss; Moderate episode of recurrent major depressive disorder (HCC); Acute non-recurrent maxillary sinusitis; Low vitamin B12 level; BMI 34.0-34.9,adult; Obesity (BMI 30-39.9) Social History Tobacco Use Types Packs/Day Years [...] on file 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 Gender Identity Female 02/02/2021 7:25 AM CDT Sexual Orientation Straight 02/02/2021 7: 25 AM CDT documented as of this encounter Last Filed Vital Signs Vital Sign Reading Time Taken Comments Blood Pressure 128/86 10/16/2021 9:00 AM CDT Pulse 90 10/16/2021 9:00 AM CDT Temperature 37.2 ??C (98.9 ??F) 10/16/2021 9:00 AM CD T Respiratory Rate - - Oxygen Saturation 99% 10/16/2021 9:00 AM CDT Inhaled Oxygen Concentration - - Weight 88.9 kg (195 lb 14.4 oz) 10/16/2021 9:00 AM CDT Height 160 cm (5' 3 ) 10/16/2021 9:00 AM CDT Body Mass Index 34.7 10/16/2021 9:00 AM CDT documented in this encounter Ordered Prescriptions Prescription Sig Dispense Quantity Refills Last Filled Start Date End Date amoxicillin-clavul anate (AUGMENTIN) 875-125 mg per tablet Take 1 tablet by mouth 2 (two) times a day for 10 days 20 tablet 10/16/2021 10/26/2021 ferrous sulfate (FeroSuL) 325 mg (65 mg of elemental iron) tabletIndications: Low vitamin B12 level Take 1 tablet (325 mg total) by mouth 2 (two) times a day 60 tablet 2 10/16/2021 02/19/2022 documented in this encounter Progress Notes * Starr Bran PA - 10/16/2021 9:00 AM CDT Images from the original note were not included. Subjective/Objective Patient ID: Viktoriya Bell is a 56 y.o. female. Chief Complaint No chief complaint on file. HPI Patient presents for wellness exam and followup chronic concerns. Sinusitis sxs. Claritin, Flonase, Mucinex Sxs have been present for about the last week and she is just feeling worse. Willing to consider antibiotic 05/31 -- Dand C Ablation 07/01 -- started bleeding again 08/08 - Vaginal Lap HYST with BSO -- Unable to start Estrogen. HAND DECORATOR encouraged her to followup to discuss options with PCP. Emotional/Hot flashes/night sweats Increased the Effexor to 150mg in the beginning of August ?? Dr. minaya -- recheck imaging and PE/DVT gone so stopped the Eliquis ?? Mamm - 03/2021 COVID Pfizer x 2 Tdap UTD Colonoscopy 09/2020--->2030 Dr. Harini WHITEHEAD UTD Review of Systems See HPI Vitals: 10/16/21 0900 BP: 128/86 BP Location: Left arm Patient Position: Sitting Pulse: 90 Temp: 37.2 ??C (98.9 ??F) TempSrc: Oral SpO2: 99% Weight: 88.9 kg (195 lb 14.4 oz) Height: 160 cm (5' 3 ) Physical Exam HENT: Head: Normocephalic and atraumatic. Comments: Frontal and maxillary sinus tenderness Cardiovascular: Rate and Rhythm: Normal rate and regular rhythm. Pulmonary: Effort: Pulmonary effort is normal. Breath sounds: Normal breath sounds. Skin: General: Skin is warm and dry. Neurological: Mental Status: She is alert. Psychiatric: Mood and Affect: Mood normal. Assessment/Plan Diagnoses and all orders for this visit: Annual physical exam (Z00.00) (Primary) Assessment & Plan: Encouraged healthy lifestyle, good nutrition and exercise. Encouraged Calcium and Vitamin D and weight bearing exercise for bone health. Reviewed immunizations Reviewed age appropirate screenings. Vitamin D deficiency (E55.9) Assessment & Plan: Check labs. She started supplement a couple of weeks ago per Dr. Minaya and will recheck labs to make sure that she is in range. Orders: - Vitamin D 25 hydroxy; Future Essential hypertension (I10) Assessment & Plan: Bp is stable/in acceptable range for any co-morbidities. Encouraged to limit sodium intake and exercise for weight control. Continue lisinopril Hyperglycemia (R73.9) Assessment & Plan: Pre-diabetes/hyperglycemia is a precursor to Dm. Stressed importance of working on diet (decrease your simple sugars and one carbohydrate with each meal) and increase you exercise to achieve weight loss and this will help prevent you from progressing to diabetes. Vasomotor symptoms due to menopause (N95.1) Assessment & Plan: Continue the Effexor Iron deficiency anemia due to chronic blood loss (D50.0) Assessment & Plan: Continue per Dr. Minaya. She is continuing to see improvement in her labs. She still on iron supplementation. Planning to recheck 6 weeks for labs and continue to follow with Dr. Minaya. Moderate episode of recurrent major depressive disorder (HCC) (F33.1) Assessment & Plan: Continue with the Effexor XR 150 mg. She definitely has seen improvement with the increase in dose.If symptoms plateau may need to increase the dose. Acute non-recurrent maxillary sinusitis (J01.00) Assessment & Plan: This is a significant, separately identifiable problem that was evaluated and managed on the same day as the wellness exam Start antibiotic, antihistamine (Claritin OR Zyrtec), Mucinex 12hour and Steroid nasal spray (Flonase). Push fluids. Rest. Supportive care. If sxs worsen or don\'t improve, pt is to followup in the office. Low vitamin B12 level (E53.8) Assessment & Plan: Recheck B12 levels Orders: - ferrous sulfate (FeroSuL) 325 mg (65 mg of elemental iron) tablet; Take 1 tablet (325 mg total) by mouth 2 (two) times a day - Vitamin B12; Future BMI 34.0-34.9,adult (Z68.34) Assessment & Plan: Obesity is unchanged. Discussed the patient's BMI. The BMI is above average. BMI management plan is completed. BMI Follow-up includes: nutrition counseling, exercise counseling and education provided. Obesity (BMI 30-39.9) (E66.9) Assessment & Plan: Obesity is unchanged. Discussed the patient's BMI. The BMI is above average. BMI management plan is completed. BMI Follow-up includes: nutrition counseling, exercise counseling and education provided. Other orders - amoxicillin-clavulanate (AUGMENTIN) 875-125 mg per tablet; Take 1 tablet by mouth 2 (two) times aday for 10 days *This note is dictated using [employer] voice recognition software, variances in spelling and vocabulary are possible and unintentional.* Starr Barn PA-C documented in this encounter Miscellaneous Notes * Assessment & Plan Note - Starr Bran PA - 10/16/2021 9:47 AM CDT Associated Problem(s): Acute non-recurrent maxillary sinusitis (Resolved 07/30/2022) This is a significant, separately identifiable problem that was evaluated and managed on the same day as the wellness exam Start antibiotic, antihistamine (Claritin OR Zyrtec), Mucinex 12hour and Steroid nasal spray (Flonase). Push fluids. Rest. Supportive care. If sxs worsen or don\'t improve, pt is to followup in the office. * Assessment & Plan Note - Starr Bran PA - 10/16/2021 9:46 AM CDT Associated Problem(s): Annual physical exam (Resolved 01/21/2022) Encouraged healthy lifestyle, good nutrition and exercise. Encouraged Calcium and Vitamin D and weight bearing exercise for bone health. Reviewed immunizations Reviewed age appropirate screenings. * Assessment & Plan Note - Starr Bran PA - 10/16/2021 9:46 AM CDT Associated Problem(s): Vasomotor symptoms due to menopause Continue the Effexor * Assessment & Plan Note - Starr Bran PA - 10/16/2021 9:46 AM CDT Associated Problem(s): Moderate episode of recurrent major depressive disorder (HCC) Continue with the Effexor XR 150 mg. She definitely has seen improvement with the increase in dose.If symptoms plateau may need to increase the dose. * Assessment & Plan Note - Starr Bran PA - 10/16/2021 9:46 AM CDT Associated Problem(s): Low vitamin B12 level Recheck B12 levels * Assessment & Plan Note - Starr Bran PA - 10/16/2021 9:45 AM CDT Associated Problem(s): Iron deficiency anemia due to chronic blood loss Continue per Dr. Minaya. She is continuing to see improvement in her labs. She still on iron supplementation. Planning to recheck 6 weeks for labs and continue to follow with Dr. Minaya. * Assessment & Plan Note - Starr Bran PA - 10/16/2021 9:45 AM CDT Associated Problem(s): Hyperglycemia Pre-diabetes/hyperglycemia is a precursor to Dm. Stressed importance of working on diet (decrease your simple sugars and one carbohydrate with each meal) and increase you exercise to achieve weight loss and this will help prevent you from progressing to diabetes. * Assessment & Plan Note - Starr Bran PA - 10/16/2021 9:45 AM CDT Associated Problem(s): Vitamin D deficiency Check labs. She started supplement a couple of weeks ago per Dr. Minaya and will recheck labs to make sure that she is in range. * Assessment & Plan Note - Starr Bran PA - 10/16/2021 9:44 AM CDT Associated Problem(s): Essential hypertension Bp is stable/in acceptable range for any co-morbidities. Encouraged to limit sodium intake and exercise for weight control. Continue lisinopril * Assessment & Plan Note - Flaco Morales MA - 10/16/2021 9:01 AM CDT Associated Problem(s): BMI 35.0-35.9,adult (Resolved 05/17/2022) Obesity is unchanged. Discussed the patient's BMI. The BMI is above average. BMI management plan is completed. BMI Follow-up includes: nutrition counseling, exercise counseling and education provided. * Assessment & Plan Note - Flaco Morales MA - 10/16/2021 9:01 AM CDT Associated Problem(s): Morbid obesity (HCC) (Resolved 05/17/2022) Obesity is unchanged. Discussed the patient's BMI. The BMI is above average. BMI management plan is completed. BMI Follow-up includes: nutrition counseling, exercise counseling and education provided. documented in this encounter Plan of Treatment Not on file documented as of this encounter Procedures Procedure Name Priority Date/Time Associated Diagnosis Comments VITAMIN D 25 HYDROXY Routine 11/24/2021 9:35 AM CDT Vitamin D deficiency VITAMIN B12 Routine 11/24/2021 9:35 AM CDT Low vitamin B12 level documented in this encounter Results * Vitamin B12 (11/24/2021 9:35 AM CDT) Vitamin B12 293 232 - 1,245 pg/mL [facility] - 01 Blood specimen (specimen) 11/24/2021 9:35 AM CDT 11/24/2021 Narrative [facility] - 11/25/2021 7:36 AM CDT Performed at: ??01 - [facility] ??[id number] Senior Counsel Commercial: Parveen Lofton PhD, Phone: ??[phone] Starr SALVADOR LAB BLOOD ORDERABLES Final Result Performing Organization Address [facility] de Phone Number [facility] - * Vitamin D 25 hydroxy (11/24/2021 9:35 AM CDT) Pathologist [facility] Vitamin D, 25-Hydroxy 38.2 30.0 - 100.0 ng/mL [facility] - Comment: Vitamin D deficiency has been defined by the [place] of [employer] and an Endocrine Society practice guideline as a level of serum 25-OH vitamin D less than 20 ng/mL (1,2). The Endocrine Society went on to further define vitamin D insufficiency as a level between 21 and 29 ng/mL (2). 1. IOM ([place] of [employer]). 2010. Dietary reference ?? intakes for calcium and D. [place]: The ?? National Academies Press. 2. Jonathan MF, Eli NC, Santiago JOHNSON, et al. ?? Evaluation, treatment, and prevention of vitamin D ?? deficiency: an Endocrine Society clinical practice ?? guideline. JCEM. 2010; 96(7):1911-30. Blood specimen (specimen) 11/24/2021 9:35 AM CDT 11/24/2021 Narrative [facility] - 11/25/2021 7:36 AM CDT Performed at: ?? - [facility] ??[id number] Senior Counsel Commercial: Parveen Lofton PhD, Phone: ??[phone] Starr SALVADOR LAB BLOOD ORDERABLES Final Result Performing Organization Address [facility]/ZIP Co de Phone Number [facility] - 01 documented in this encounter Visit Diagnoses Diagnosis Annual physical exam- Primary Routine general medical examination at a health care facility Vitamin D deficiency Essential hypertension Unspecified essential hypertension Hyperglycemia Other abnormal glucose Vasomotor symptoms due to menopause Iron deficiency anemia due to chronic blood loss Iron deficiency anemia secondary to blood loss (chronic) Moderate episode of recurrent major depressive disorder (HCC) Acute non-recurrent maxillary sinusitis Low vitamin B12 level BMI 34.0-34.9,adult Obesity (BMI 30-39.9) documented in this encounter Discontinued Medications Medication Sig Discontinue Reason Start Date End Da te FeroSuL 325 mg (65 mg iron) tabletIndications:Low vitamin B12 level TAKE 1 TABLET BY MOUTH TWICE DAILY Reorder 08/10/2021 10/16/2021 documented as of this encounter Care Teams Bond Analyst Relationship Specialty Start Date End Date Starr Bran PA [address] [place] [address] PCP - General Internal Medicine 12/30/18 Bibiana Schuler MD [address] [place] [address] Consulting Physician Gastroenterology 05/11/21 Cornelius Minaya DO [address] [place] [address] MEDICAL ONCOLOGY, [address] [place] [address] Medical Oncologist/Hematologis t Hematology and Oncology 09/26/21 documented as of this encounter
--- OUTSIDE RECORDS SUMMARY | 2024-07-18 20:33 | XMS_ITS | Encounter Summary ---
Author Organization [facility] Address [address] [facility] [address] [place] [address] Phone Care Team Providers Care Home Health Care Coordinator Name Role Phone Starr Bran Primary Care Provider [phone] Bibiana Schuler MD Unavailable [phone] Ani Villafana DO Unavailable [phone] Reason for Visit * Reason Comments Follow-up Encounter Details Date Type Department Care Team (Late st Contact Info) Description 10/06/2021 9:30 AM LINUX SERVER ADMINISTRATOR Office Visit [facility] Physicians [facility] On[facility] [address] [place] [address] Ani Villafana, [facility] [address] History of pulmonary embolus (PE) (Primary Dx); History of DVT (deep vein thrombosis); Vitamin D deficiency; Iron deficiency anemia due to chronic blood loss; Anemia, unspecified type; Low vitamin B12 level Social History Tobacco [...] on file Legal Sex Female 10:31 AM LINUX SERVER ADMINISTRATOR Gender Identity Female 02/02/2021 7:25 AM CDT Sexual Orientation Straight 02/02/2021 7: 25 AM CDT documented as of this encounter Last Filed Vital Signs Vital Sign Reading Time Taken Comments Blood Pressure 130/84 10/06/2021 10:01 AM LINUX SERVER ADMINISTRATOR Pulse 76 10/06/2021 10:01 AM LINUX SERVER ADMINISTRATOR Temperature 36.6 ??C (97.9 ??F) 10/06/2021 10:[address] Respiratory Rate 18 10/06/2021 10:01 AM LINUX SERVER ADMINISTRATOR Oxygen Saturation 97% 10/06/2021 10:01 AM LINUX SERVER ADMINISTRATOR Inhaled Oxygen Concentration - - Weight 89.7 kg (197 lb 12 oz) 10/06/2021 10:01 A M LINUX SERVER ADMINISTRATOR Height 160 cm (5' 3 ) 10/06/2021 10:01 AM LINUX SERVER ADMINISTRATOR Body Mass Index 35.03 10/06/2021 10:01 AM LINUX SERVER ADMINISTRATOR documented in this encounter Progress Notes * Ani Villafana, DO - 10/06/2021 9:30 AM CST Patient ID: Viktoriya Bell is a 56 y.o. female. Primary Care Provider: Starr Bran PA Assessment/Plan 1. Resolved iron deficiency anemia. 2. Status post total abdominal hysterectomy with bilateral salpingo oophorectomy 3. Postmenopausal syndrome Recommendations: 1. At this visit, she will continue with iron supplementation. 2. I will repeat another CBC and iron panel in 6 weeks and let her know by telephone those results and any further follow-up. 3. Regarding her postmenopausal syndrome, I recommend black cohosh b.i.d., vitamin D3 2000 international units daily and Granite oil. She will continue with the venlafaxine medication for vasomotor symptoms. I did reassure that these vitamin supplementations will not increase her risk of clot. My total encounter time on 10/06/2021 was 20 minutes which was spent in the activities documented inthe note. This includes time spent prior to [...] (HCC) ??? Obesity (BMI 30-39.9) ??? BMI 35.0-35.9,adult ??? H/O total hysterectomy with bilateral salpingo-oophorectomy (BSO) ??? Vasomotor symptoms due to menopause Diagnoses and all orders for this visit: History of pulmonary embolus (PE) (Primary) - CBC with auto differential; Future - Ferritin; Future - Iron profile w/ IBC; Future - Reticulocyte Count; Future - Clinic Appointment Request Follow up; ANI VILLAFANA; Clinic Appointment Location: [facility] History of DVT (deep vein thrombosis) - CBC with auto differential; Future - Ferritin; Future - Iron profile w/ IBC; Future - Reticulocyte Count; Future - Clinic Appointment Request Follow up; ANI VILLAFANA; Clinic Appointment Location: [facility] Vitamin D deficiency Iron deficiency anemia due to chronic blood loss - CBC with auto differential; Future - Ferritin; Future - Iron profile w/ IBC; Future - Reticulocyte Count; Future - Clinic Appointment Request Follow up; ANI VILLAFANA; Clinic Appointment Location: [facility] Anemia, unspecified type Low vitamin B12 level - Clinic Appointment Request Follow up; ANI VILLAFANA; Clinic Appointment Location: [facility] Subjective Interval History: A. Iron deficiency anemia. [...] iron supplementation once a day. 7. Her accountancy professor performed laparoscopic hysterectomy with bilateral salpingo oophorectomy in early July this year. She did have severe vasomotor symptoms and postmenopausal syndrome. Patient was placed on venlafaxine and this has been increased. 8. At this visit, she still complains of fatigue and is less emotional. Recent labs show a ferritin of 25 with slightly low iron saturation and a normal serum iron. Hemoglobin has drifted down to 11.2. Interval Notes: I have reviewed: allergies, current [...] Exam: Vital Signs for this encounter: BSA: 2 meters squared BP 130/84 (BP Location: Left arm) Pulse 76 Temp 36.6 ??C (97.9 ??F) (Oral) Resp 18 Ht 160 cm (5' 3 ) Wt 89.7 kg (197 lb 12 oz) SpO2 97% BMI 35.03 kg/m?? Physical Exam Constitutional: Appearance: She is [...] Results: WBC Date Value Ref Range Status 10/03/2021 4.5 3.4 - 10.8 x10E3/uL Final Hgb Date Value Ref Range Status 10/03/2021 11.1 11.1 - 15.9 g/dL Final Hct Date Value Ref Range Status 10/03/2021 33.9 (L) 34.0 - 46.6 % Final Platelets Date Value Ref Range Status 10/03/2021 272 150 - 450 x10E3/uL Final Creatinine, Serum Date Value Ref Range Status 04/24/2021 0.60 0.57 - 1.00 mg/dL Final AST Date Value Ref Range Status 04/24/2021 13 0 - 40 IU/L Final X SERVER ADMINISTRATOR documented in this encounter Plan of Treatment Not on file documented as of this encounter Procedures Procedure Name Priority Date/Time Associated Diagnosis Comments IRON PROFILE W/ IBC Routine 11/24/2021 9 :35 AM CDT History of pulmonary embolus (PE) History of DVT (deep vein thrombosis) Iron deficiency anemia due to chronic blood loss CBC WITH AUTO DIFFERENTIAL Routine 11/24/2021 9:35 AM CDT History of pulmonary embolus (PE) History of DVT (deep vein thrombosis) Iron deficiency anemia due to chronic blood loss RETICULOCYTES Routine 11/24/2021 9:35 AM CDT History of pulmonary embolus (PE) History of DVT (deep vein thrombosis) Iron deficiency anemia due to chronic blood loss FERRITIN Routine 11/24/2021 9:35 AM CDT History of pulmonary embolus (PE) History of DVT (deep vein thrombosis) Iron deficiency anemia due to chronic blood loss documented in this encounter Results * (ABNORMAL) Reticulocyte Count (11/24/2021 9:35 AM CDT) Pathologist [facility] Reticulocyte Count 3.9(H) 0.6 - 2.6 % [facility] - 01 Blood specimen (specimen) 11/24/2021 9:35 AM CDT 11/24/2021 Narrative [facility] - 11/25/2021 7:09 AM CDT Performed at: ?? - [facility] ??[id number] Company Miner Blasting: Parveen Lofton PhD, Phone: ??[phone] Ani Villafana DO LAB BLOOD ORDERABLES Final R esult [facility] - * (ABNORMAL) Iron profile w/ IBC (11/24/2021 9:35 AM CDT) Pathologist [facility] Iron Bind.Cap.(TIBC) 366 250 - 450 ug/dL [facility] - 01 UIBC 340 131 - 425 ug/dL [facility] - 01 Iron 26(L) 27 - 159 ug/dL [facility] - 01 Iron saturation 7(LL) 15 - 55 % [facility] - 01 Blood specimen (specimen) 11/24/2021 9:35 AM CDT 11/24/2021 Narrative [facility] - 11/25/2021 8:13 AM CDT Performed at: ?? [facility] ??[id number] Company Miner Blasting: Parveen Lofton PhD, Phone: ??[phone] Ani Villafana DO LAB BLOOD ORDERABLES Final R esult [facility] - * Ferritin (11/24/2021 9:35 AM CDT) Pathologist [facility] Ferritin 39 15 - 150 ng/mL [facility] - 01 Blood specimen (specimen) 11/24/2021 9:35 AM CDT 11/24/2021 Narrative [facility] - 11/25/2021 8:13 AM CDT Performed at: ??01 - [facility] [address], [place], [place] ??[id number] [employer] Min[employer]: Parveen Lofton PhD, Phone: ??[phone] Ani Villafana DO LAB BLOOD ORDERABLES Final R esult [facility] - * (ABNORMAL) CBC with auto differential (11/24/2021 9:35 AM CDT) WBC 3.9 3.4 - 10.8 x10E3/uL [facility] - 01 RBC 3.88 3.77 - 5.28 x10E6/uL [facility] - 01 Hgb 10.7(L) 11.1 - 15.9 g/dL [facility] - 01 Hct 34.4 34.0 - 46.6 % [facility] - 01 MCV 89 79 - 97 fL [facility] - 01 MCH 27.6 26.6 - 33.0 pg [facility] - 01 MCHC 31.1(L) 31.5 - 35.7 g/dL [facility] - 01 Rdw 13.4 11.7 - 15.4 % [facility] - 01 Platelets 274 150 - 450 x10E3/uL [facility] - 01 Neutrophils pct 69 Not Estab. % [facility] - 01 Lymphs pct 23 Not Estab. % [facility] - 01 Monocytes [...] x10E3/uL [facility] - 01 Blood specimen (specimen) 11/24/2021 9:35 AM CDT 11/24/2021 Narrative [facility] - 11/25/2021 7:09 AM CDT Performed at: ??01 - [facility] [address], [place], [place] [id number] [employer] Min[employer]: Parveen Lofton PhD, Phone: ??[phone] Ani Villafana DO LAB BLOOD ORDERABLES Final R esult [facility] - 01 documented in this encounter Visit Diagnoses Diagnosis History of pulmonary embolus (PE)- Primary History of DVT (deep vein thrombosis) Vitamin D deficiency Iron deficiency anemia due to chronic blood loss Iron deficiency anemia secondary to blood loss (chronic) Anemia, unspecified type Low vitamin B12 level documented in this encounter Orders Appointment Requests Count Last Ordered Date Fi rst Ordered Date ONCBCN CLINIC APPOINTMENT REQUEST 1 022 documented in this encounter Care Teams Home Health Care Coordinator Relationship Specialty Start Date End Date Starr Bran PA [address] [place] [address] PCP - General Internal Medicine 12/30/18 Bibiana Schuler MD [address] [place] [address] Consulting Physician Gastroenterology 05/11/21 Ani Villafana DO [address] [facility] MEDICAL ON[facility], [facility] [address] [place] [address] Medical Oncologist/Hematologis t Hematology and Oncology 09/26/21 documented as of this encounter
--- OUTSIDE RECORDS SUMMARY | 2024-07-18 20:33 | XMS_ITS | Encounter Summary ---
Author Organization [facility] Address [address] [place] [address] Care Team Providers Care Realty Specialist Name Role Phone Starr Bran Primary Care Provider [phone] Bruce Olea MD Unavailable [phone] Bibiana Schuler MD Unavailable [phone] Reason for Visit * Reason Comments B12 Injection Encounter Details Date Type Department Care Team (Latest Contact Info) Description 06/07/2021 10:45 AM RADIO DISPATCHER Clinical Support [facility] Family Medicine [address] [facility] [address] [place] [address] Low vitamin B12 level (Primary [...] on file Legal Sex Female 10:31 AM RADIO DISPATCHER Gender Identity Female 02/02/2021 7:25 AM CDT Sexual Orientation Straight 02/02/2021 7: 25 AM CDT documented as of this encounter Progress Notes * Louise Caldwell LPN - 06/07/2021 10:45 AM CST Patient here for b12 injection. Given in L deltoid. Patient tolerated well, ambulated out of the clinic. She will return in 2 weeks for additional injection, but will call sooner with any questions or concerns. O DISPATCHER documented in this encounter Plan of Treatment Not on file documented as of this encounter Visit Diagnoses Diagnosis Low vitamin B12 level- Primary documented in this encounter Administered Medications Inactive Administered Medications - up to 3 most recent administrations Medication Order MAR Action Action Date Dose Rate Site cyanocobalamin (Vitamin B-12) injection 1,000 mcg 1,000 mcg, intramuscular, Every 30 days, First dose on Sat06/07/21 at 1130Indications:Low vitamin B12 level Given 06/07/2021 10:50 AM RADIO DISPATCHER 1,000 mcg Right Deltoid documented in this encounter Care Teams Realty Specialist Relationship Specialty Start Date End Date Starr Bran PA [address] [place] [address] PCP - General Internal Medicine 12/30/18 Bruce Olea MD [address] [place] [address] Medical Oncologist/Power Switchboard Operator Medical Oncology 02/17/21 09/25/21 Bibiana Schuler MD [address] [place] [address] Consulting Physician Gastroenterology 05/11/21 documented as of this encounter
--- OUTSIDE RECORDS SUMMARY | 2024-07-18 20:34 | XMS_ITS | Encounter Summary ---
Author Organization [facility] Address [address] [facility] [address] [place] [address] Care Team Providers Care Operations Engineer Name Role Phone Starr Bran Primary Care Provider [phone] Bruce Olea MD Unavailable [phone] Bibiana Schuler MD Unavailable [phone] Reason for Visit * Reason Comments Review Medications Encounter Details Date Type Department Care Team (Late st Contact Info) Description 05/17/2021 10:15 AM CDT Office Visit [facility] Family Medicine [address] [facility] [address] [place] [address] Starr Bran PA [address] [facility] [address] [place] [address] Moderate episode of recurrent major depressive disorder (HCC) (Primary Dx); Flu vaccine need; Essential hypertension; Perimenopausal menorrhagia; Iron deficiency anemia due to chronic blood loss; History of pulmonary embolus (PE); Low vitamin B12 level; History of DVT (deep vein thrombosis); BMI 34.0-34.9,adult; Obesity (BMI 30-39.9) Social History [...] on file Legal Sex Female 10:31 AM DOMAIN ARCHITECT Gender Identity Female 02/02/2021 7:25 AM CDT Sexual Orientation Straight 02/02/2021 7: 25 AM CDT documented as of this encounter Last Filed Vital Signs Vital Sign Reading Time Taken Comments Blood Pressure 122/90 05/17/2021 10:22 AM CDT Pulse 72 05/17/2021 10:22 AM CDT Temperature 36.9 ??C (98.4 ??F) 05/17/2021 10:22 AM C DT Respiratory Rate - - Oxygen Saturation 99% 05/17/2021 10:22 AM CDT Inhaled Oxygen Concentration - - Weight 88 kg (194 lb) 05/17/2021 10:22 AM CDT Height 160 cm (5' 3 ) 05/17/2021 10:22 AM CDT Body Mass Index 34.37 05/17/2021 10:22 AM CDT documented in this encounter Ordered Prescriptions Prescription Sig Dispense Quantity Refills Last Filled Start Date End Date lisinopriL (PRINIVIL,ZESTRIL) 10 mg tablet Take 1 tablet (10 mg total) by mouth daily 90 tablet 3 05/17/2021 2 venlafaxine XR (EFFEXOR-XR) 75 mg 24 hr capsuleIndications :Moderate episode of recurrent major depressive disorder (HCC) Take 1 capsule (75 mg total) by mouth daily Take with food. 90 capsule 1 05/17/2021 2 documented in this encounter Progress Notes * Starr Bran PA - 05/17/2021 10:15 AM CDT Images from the original note were not included. Subjective/Objective Patient ID: Viktoriya Bell is a 56 y.o. female. Chief Complaint Review Medications HPI Dr. Olea did another iron infusion. Started Effexor Worry is better Sleeping is much better Had first period since starting Eliquis. Dr. Bynum started Provera x 10 days and has followup. FLU needed Review of Systems See HPI Vitals: 05/17/21 1022 BP: 122/90 BP Location: Left arm Patient Position: Sitting Pulse: 72 Temp: 36.9 ??C (98.4 ??F) TempSrc: Oral SpO2: 99% Weight: 88 kg (194 lb) Height: 160 cm (5' 3 ) Physical Exam Assessment/Plan Diagnoses and all orders for this visit: Moderate episode of recurrent major depressive disorder (HCC) (F33.1) (Primary) Assessment & Plan: Patient is beginning to see improvement with the Effexor 75 mg. She is feeling less stressed. She is sleeping better. She is less worried. She would like to continue with the same dose. Orders: - venlafaxine XR (EFFEXOR-XR) 75 mg 24 hr capsule; Take 1 capsule (75 mg total) by mouth daily Takewith food. Flu vaccine need (Z23) - Flu Vaccine Quad PF 6m+ IM - Fluarix / FluLaval / Fluzone Essential hypertension (I10) Assessment & Plan: Bp is stable/in acceptable range for any co-morbidities. Encouraged to limit sodium intake and exercise for weight control. Continue lisinopril 10 mg Perimenopausal menorrhagia (N92.4) Assessment & Plan: Patient has had increased bleeding the last few weeks. She is on Eliquis. She had been using Depo-Provera but had to discontinue it after the blood clot. She has already made contact with Dr. Bynum his started on Provera 10 mg x 10 days and she will follow up with him for more definitive plan later in the week. Iron deficiency anemia due to chronic blood loss (D50.0) Assessment & Plan: Patient continues follow-up with Dr. Olea just had her 1st iron infusion and plans on a 2nd. States she sick does not significantly feel better at this point. History of pulmonary embolus (PE) (Z86.711) Assessment & Plan: History of bilateral PE with DVT. Still on Eliquis. Will be on Eliquis lifetime. Low vitamin B12 level (E53.8) Assessment & Plan: Continue B12 injections Q 12 weeks. Last B12 level was in range. History of DVT (deep vein thrombosis) (Z86.718) Assessment & Plan: DVT. She is continuing with the Eliquis. BMI 34.0-34.9,adult (Z68.34) Assessment & Plan: Obesity [...] mouth daily *This note is dictated using [employer] voice recognition software, variances in spelling and vocabulary are possible and unintentional.* Starr Bran PA-C documented in this encounter Miscellaneous Notes * Assessment & Plan Note - Starr Bran PA - 05/17/2021 10:21 PM CDT Associated Problem(s): Moderate episode of recurrent major depressive disorder (HCC) Patient is beginning to see improvement with the Effexor 75 mg. She is feeling less stressed. She is sleeping better. She is less worried. She would like to continue with the same dose. * Assessment & Plan Note - Starr Bran PA - 05/17/2021 10:20 PM CDT Associated Problem(s): History of DVT (deep vein thrombosis) DVT. She is continuing with the Eliquis. * Assessment & Plan Note - Starr Bran PA - 05/17/2021 10:19 PM CDT Associated Problem(s): Low vitamin B12 level Continue B12 injections Q 12 weeks. Last B12 level was in range. * Assessment & Plan Note - Starr Bran PA - 05/17/2021 10:19 PM CDT Associated Problem(s): History of pulmonary embolus (PE) History of bilateral PE with DVT. Still on Eliquis. Will be on Eliquis lifetime. * Assessment & Plan Note - Starr Bran PA - 05/17/2021 10:15 PM CDT Associated Problem(s): Iron deficiency anemia due to chronic blood loss Patient continues follow-up with Dr. Olea just had her 1st iron infusion and plans on a 2nd. States she sick does not significantly feel better at this point. * Assessment & Plan Note - Starr Bran PA - 05/17/2021 10:14 PM CDT Associated Problem(s): Perimenopausal menorrhagia (Resolved 08/31/2021) Patient has had increased bleeding the last few weeks. She is on Eliquis. She had been using Depo-Provera but had to discontinue it after the blood clot. She has already made contact with Dr. Bynum his started on Provera 10 mg x 10 days and she will follow up with him for more definitive plan later in the week. * Assessment & Plan Note - Starr Bran PA - 05/17/2021 10:14 PM CDT Associated Problem(s): Essential hypertension Bp is stable/in acceptable range for any co-morbidities. Encouraged to limit sodium intake and exercise for weight control. Continue lisinopril 10 mg * Assessment & Plan Note - Flaco Morales MA - 05/17/2021 10:25 AM CDT Associated Problem(s): BMI 35.0-35.9,adult (Resolved 10/16/2021) Obesity is unchanged. Discussed the patient's BMI. The BMI is above average. BMI management plan is completed. BMI Follow-up includes: nutrition counseling, exercise counseling and education provided. * Assessment & Plan Note - Flaco Morales MA - 05/17/2021 10:25 AM CDT Associated Problem(s): Obesity (BMI 30-39.9) (Resolved 10/16/2021) Obesity is unchanged. Discussed the patient's BMI. The BMI is above average. BMI management plan is completed. BMI Follow-up includes: nutrition counseling, exercise counseling and education provided. documented in this encounter Plan of Treatment Not on file documented as of this encounter Visit Diagnoses Diagnosis Moderate episode of recurrent major depressive disorder (HCC)- Primary Flu vaccine need Essential hypertension Unspecified essential hypertension Perimenopausal menorrhagia Iron deficiency anemia due to chronic blood loss Iron deficiency anemia secondary to blood loss (chronic) History of pulmonary embolus (PE) Low vitamin B12 level History of DVT (deep vein thrombosis) BMI 34.0-34.9,adult Obesity (BMI 30-39.9) documented in this encounter Discontinued Medications Medication Sig Discontinue Reason Start Date End Da te venlafaxine XR (EFFEXOR-XR) 75 mg 24 hr capsuleIndications:Moder ate episode of recurrent major depressive disorder (HCC) Take 1 capsule (75 mg total) by mouth daily Take with food. Reorder 04/26/2021 05/17/2021 lisinopriL (PRINIVIL,ZESTRIL) 10 mg tablet Take 1 tablet (10 mg total) by mouth daily Reorder 02/15/2021 05/17/2021 documented as of this encounter Historical Medications * This list may reflect changes made after this encounter. medroxyPROGESTERo ne (PROVERA) 10 mg tablet Take 10 mg by mouth daily 05/11/2021 08/29/2021 added in this encounter Orders Immunization/Injection Count Last Ordered Date First Ordered Date FLU VACCINE QUAD PF 6M+ IM - FLUARIX / FLULAVAL / FLUZONE- SYRINGE 1 05/17/2021 documented in this encounter Care Teams Operations Engineer Relationship Specialty Start Date End Date Starr Bran PA [address] [place] [address] PCP - General Internal Medicine 12/30/18 Bruce Olea MD [address] [place] [address] Medical Oncologist/Model Maker Apprentice Medical Oncology 02/17/21 09/25/21 Bibiana Schuler MD [address] [place] [address] Consulting Physician Gastroenterology 05/11/21 documented as of this encounter
--- OUTSIDE RECORDS SUMMARY | 2024-07-18 20:34 | XMS_ITS | Encounter Summary ---
Author Organization [facility] Address [address] [facility] [address] [place] [address] Care Team Providers Care Logistics Engineer Name Role Phone Starr Bran Primary Care Provider [phone] Bruce Olea MD Unavailable Reason for Visit * Reason Onset Date Comments Corrected order 02/20/2021 Encounter Details Date Type Department Care Team (Late st Contact Info) Description 02/20/2021 Telephone [facility] Family Medicine [address] [place] [address] Starr Bran PA [address] [place] [address] Corrected order Social History Tobacco Use Types Packs/Day Years [...] on file Legal Sex Female 10:31 AM MARKET 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 documented in this encounter Plan of Treatment Not on file documented as of this encounter Visit Diagnoses Diagnosis Bilateral pulmonary embolism (CMS/HCC) (HCC)- Primary Other pulmonary embolism and infarction documented in this encounter Care Teams Logistics Engineer Relationship Specialty Start Date End Date Starr Bran PA [address] [place] [address] PCP - General Internal Medicine 12/30/18 Bruce Olea MD [address] [place] [address] Medical Oncologist/Dough Cutter Medical Oncology 02/17/21 09/25/21 documented as of this encounter
--- OUTSIDE RECORDS SUMMARY | 2024-07-18 20:34 | XMS_ITS | Encounter Summary ---
Author Organization [facility] Address [address] [place] [address] Care Team Providers Care Diagnostic Imaging Manager Name Role Phone tSarr Bran Primary Care Provider [phone]- [phone] Bruce Olea MD Unavailable [phone] Bibiana Schuler MD Unavailable [phone] Reason for Visit * Reason Onset Date Comments FYI 05/25/2021 Encounter Details Date Type Department Care Team (Late st Contact Info) Description 05/25/[address] [facility] Family Medicine [address] [place] [address] Starr Bran PA [address] [place] [address] Social History Tobacco Use Types [...] on file Legal Sex Female 10:31 AM PRESIDENT ERGONOMIC CONSULTING Gender Identity Female 02/02/2021 7:25 AM CDT Sexual Orientation Straight 02/02/2021 7: 25 AM CDT documented as of this encounter Miscellaneous Notes * Telephone Encounter - Starr Bran PA - 05/25/2021 3:11 PM CDT noted * Telephone Encounter - Louise Caldwell LPN - 05/25/2021 3:04 PM CDT Patient called. Wanted to inform PCP that OBGYN is planning a D&C and ablation on 05/31. Didn't recommend hysto at this point for treatment. documented in this encounter Plan of Treatment Not on file documented as of this encounter Visit Diagnoses Not on filedocumented in this encounter Care Teams Diagnostic Imaging Manager Relationship Specialty Start Date End Date Starr Bran PA [address] [place] [address] PCP - General Internal Medicine 12/30/18 Bruce Olea MD [address] [place] [address] Medical Oncologist/Venue Coordinator Medical Oncology 02/17/21 09/25/21 Bibiana Schuler MD [address] [place] [address] Consulting Physician Gastroenterology 05/11/21 documented as of this encounter
--- OUTSIDE RECORDS SUMMARY | 2024-07-18 20:34 | XMS_ITS | Encounter Summary ---
Author Organization [facility] Address [address] [place] [address] Care Team Providers Care Jordan Worker Name Role Phone Starr Bran Primary Care Provider [phone]- [phone] Bruce Olea MD Unavailable [phone] Reason for Visit * Reason Comments B12 Injection Encounter Details Date Type Department Care Team (Latest Contact Info) Description 03/29/2021 8:00 AM CDT Clinical Support [facility] Family Medicine [address] [place] [address] Low vitamin B12 level (Primary Dx); Vitamin B 12 deficiency Social History Tobacco Use Types Packs/Day Years [...] on file 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 Given in R deltoid. Patient tolerated well, ambulated out of the clinic. She will return in 2 weeks for additional injection, but will call sooner with any questions or concerns. documented in this encounter Plan of Treatment Not on file documented as of this encounter Visit Diagnoses Diagnosis Low vitamin B12 level- Primary Vitamin B 12 deficiency Other B-complex deficiencies documented in this encounter Administered Medications Inactive Administered Medications - up to 3 most recent administrations Medication Order MAR Action Action Date Dose Rate Site cyanocobalamin (Vitamin B-12) injection 1,000 mcg 1,000 mcg, intramuscular, Every 30 days, First dose on Sat03/29/21 at 0900Indications:Vitamin B 12 deficiency Given 03/29/2021 8:04 AM CDT 1,000 mcg Right Deltoid documented in this encounter Care Teams Jordan Worker Relationship Specialty Start Date End Date Starr Bran PA [address] [place] [address] PCP - General Internal Medicine 12/30/18 Bruce Olea MD [address] [place] [address] Medical Oncologist/Esthetician And Manager Medical Spa Medical Oncology 02/17/21 09/25/21 documented as of this encounter
--- OUTSIDE RECORDS SUMMARY | 2024-07-18 20:34 | XMS_ITS | Encounter Summary ---
Author Organization [facility] Address [address] [place] [address] Phone Care Team Providers Care Parts Delivery Driver Name Role Phone Starr Bran Primary Care Provider [phone] Bruce Olea MD Unavailable Bibiana Schuler MD Unavailable [phone] Encounter Details Date Type Department Care Team (Late st Contact Info) Description 05/11/2021 Telephone [facility] Oncology [address] [place] [address] [place] [address] Mary Nichols, RN Social History Tobacco Use Types Packs/Day [...] on file 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 She VU. Requests placed and patient transferred to [facility] to schedule. documented in this encounter Plan of Treatment Not on file documented as of this encounter Visit Diagnoses Not on filedocumented in this encounter Care Teams Parts Delivery Driver Relationship Specialty Start Date End Date Starr Bran PA [address] [place] [address] PCP - General Internal Medicine 12/30/18 Bruce Olea MD [address] [place] [address] Medical Oncologist/Surveyor Hydrographic Medical Oncology 02/17/21 09/25/21 Bibiana Schuler MD [address] [place] [address] Consulting Physician Gastroenterology 05/11/21 documented as of this encounter
--- OUTSIDE RECORDS SUMMARY | 2024-07-18 20:34 | XMS_ITS | Encounter Summary ---
Author Organization [facility] Address [address] [place] [address] Care Team Providers Care Management Assistant Name Role Phone Starr Bran Primary Care Provider [phone] Bruce Olea MD Unavailable [phone] Reason for Visit * Reason Comments B12 Injection Encounter Details Date Type Department Care Team (Latest Contact Info) Description 03/15/2021 8:00 AM CDT Clinical Support [facility] Family Medicine [address] [place] [address] Low vitamin B12 level (Primary [...] on file 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 Gender Identity Female 02/02/2021 7:25 AM CDT Sexual Orientation Straight 02/02/2021 7: 25 AM CDT documented as of this encounter Progress Notes * Louise Caldwell LPN - 03/15/2021 8:00 AM CDT Patient here for b12 [...] intramuscular, Every 30 days, First dose on Sat03/15/21 at 0900Indications:Low vitamin B12 level Given 03/15/2021 8:04 AM CDT 1,000 mcg Left Deltoid documented in this encounter Care Teams Management Assistant Relationship Specialty Start Date End Date Starr Bran PA [address] [place] [address] PCP - General Internal Medicine 12/30/18 Bruce Olea MD [address] [place] [address] Medical Oncologist/Straightening Roll Operator Medical Oncology 02/17/21 09/25/21 documented as of this encounter
--- OUTSIDE RECORDS SUMMARY | 2024-07-18 20:34 | XMS_ITS | Encounter Summary ---
Author Organization [facility] Address [address] [place] [address] Care Team Providers Care Timber Trimmer Name Role Phone Starr Bran Primary Care Provider [phone] Bruce Olea MD Unavailable [phone] Reason for Referral * MRI/CAT/PET Scan (Routine) - Closed Specialty Diagnoses / Procedures Referred By Contac t Referred To Contact Radiology Diagnoses Other pulmonary embolism without acute cor pulmonale, unspecified chronicity (HCC) Procedures CTA Chest W Contrast Starr Bran PA [address] [place] [address] Phone: tel: fax: [address] [phone] Referral ID Status Reason Start Date Expiration Date Visits Re quested Visits Authorized [id number] Closed 02/23/2021 03/25/2022 1 1 * MRI/CAT/PET Scan (Routine) - Closed Specialty Diagnoses / Procedures Referred By Contac t Referred To Contact Radiology Diagnoses Bilateral pulmonary embolism (CMS/HCC) (HCC) SOB (shortness of breath) Procedures CT Chest W Contrast Starr Bran PA [address] [place] [address] Phone: tel: fax: [address] [phone] Referral ID Status Reason Start Date Expiration Date Visits Re quested Visits Authorized [id number] Closed 02/15/2021 03/17/2022 1 1 Reason for Visit * MRI/CAT/PET Scan (Routine) - Closed Specialty Diagnoses / Procedures Referred By Contac t Referred To Contact Radiology Diagnoses Bilateral pulmonary embolism (CMS/HCC) (HCC) SOB (shortness of breath) Procedures CT Chest W Contrast Starr Bran PA [address] [facility] [address] [place] [address] Phone: tel: fax: [address] [phone] Referral ID Status Reason Start Date Expiration Date Visits Re quested Visits Authorized [id number] Closed 02/15/2021 03/17/2022 1 1 Encounter Details Date Type Department Care Team (Latest Contact Info) Description 02/23/2021 8:03 AM CDT - 02/23/2021 11:59 PM CDT Hospital Encounter [facility] [address] [place] [id number] Bilateral pulmonary embolism (CMS/HCC) (HCC); SOB (shortness of breath); Other pulmonary embolism without acute cor pulmonale, unspecified chronicity (HCC) Discharge Disposition: Discharge to home or [...] on file 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 Gender Identity Female 02/02/2021 7:25 AM [...] B12 level TAKE 1 TABLET BY MOUTH TWO TIMES A DAY 60 tablet 2 01/31/2021 05/02/2021 lisinopriL (PRINIVIL,ZESTRIL ) 10 mg tablet Take 1 tablet (10 mg total) by mouth daily 90 tablet 3 02/15/2021 05/17/2021 documented as of this encounter Discharge Disposition Disposition Code Departure Means Destination Discharge to home or self care documented in this encounter Plan of Treatment Not on file documented as of this encounter Procedures Procedure Name Priority Date/Time Associated Diagnosis Comments CTA CHEST W CONTRAST Schedule Routine, Read Routine (OP Routine) 02/23/2021 9:24 AM CDT Other pulmonary embolism without acute cor pulmonale, unspecified chronicity (HCC) POCT CREATININE FOR CONTRAST EVALUATION Routine 02/23/2021 9:13 AM CDT documented in this encounter Results * CTA Chest W Contrast (02/23/2021 9:24 AM CDT) Anatomical Region Laterality Modality Chest N/A Computed Tomogra phy 02/23/2021 12:4 3 PM CDT Narrative 02/23/2021 1:33 PM CDT EXAM DESCRIPTION: ?? CTA CHEST W CONTRAST REASON FOR STUDY: ?? History of pulmonary embolism 3 months ago for follow-up TECHNIQUE: ??CT angiogram of the chest performed with intravenous contrast using helical scanning technique with dynamic intravenous contrast injection. Reconstructed coronal and sagittal MPR images reviewed. All images stored on PACS. ??3D MIP images rendered on scanning unit and reviewed at time of interpretation. Automated exposure control was used as a dose optimization technique for this examination. CONTRAST TYPE/DOSE: ?? 80 mL of Optiray 350 injected via ??right forearm COMPARISON: ?? CT chest PE protocol dated November 01, 2020. FINDINGS: VASCULATURE: ??No identified pulmonary emboli. LUNGS: ??No nodules or masses. No pneumonia. ??Minimal residual airspace opacity is present in the right lower lobe posteriorly at the level of the prior infarction. PLEURA: ??No effusion. No pneumothorax. MEDIASTINUM/NAYELI: ??No identified masses or abnormal nodes. HEART: ??Heart size is normal with no pericardial effusion. AXILLA: ??No adenopathy. CHEST WALL: ??No masses. ??No subcutaneous air. HARDWARE/LINES/TUBES: ??None. UPPER ABDOMEN: ??No significant abnormality. MUSCULOSKELETAL: ??No significant abnormality. OTHER: ??No significant abnormality. IMPRESSION: ?? 1. ??Resolution of the previously visualized pulmonary embolism. 2. 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 THIS IS AN ELECTRONICALLY VERIFIED FINAL REPORT 02/23/2021 1:33 PM - Electronically signed by Ganga Carroll M.D. JA: DUNG D: ??02/23/2021 12:47 PM T: ??02/23/2021 1:29 PM Report ID: [id number] Reading Location: ??[id number] Procedure Note Ganga Carroll MD - 02/23/2021 EXAM DESCRIPTION: CTA CHEST W CONTRAST REASON FOR STUDY: History of pulmonary embolism 3 months ago forfollow-up TECHNIQUE: CT angiogram of the chest performed with intravenous contrast using helical scanning technique with dynamic intravenous contrastinjection. Reconstructed coronal and sagittal MPR images reviewed. All images storedon PACS. 3D MIP images rendered on scanning unit and reviewed at time of interpretation. Automated exposure control was used as a dose optimization technique for this examination. CONTRAST TYPE/DOSE: 80 mL of Optiray 350 injected via right forearm COMPARISON: CT chest PE protocol dated November 01, 2020. FINDINGS: VASCULATURE: No identified pulmonary emboli. LUNGS: No nodules or masses. No pneumonia. Minimal residual airspaceopacity is present in the right lower lobe posteriorly at the level of the prior infarction. PLEURA: No effusion. No pneumothorax. MEDIASTINUM/NAYELI: No identified masses or abnormal nodes. HEART: Heart size is normal with no pericardial effusion. AXILLA: No adenopathy. CHEST WALL: No masses. No subcutaneous air. HARDWARE/LINES/TUBES: None. UPPER ABDOMEN: No significant abnormality. MUSCULOSKELETAL: No significant abnormality. OTHER: No significant abnormality. IMPRESSION: 1. Resolution of the previously visualized pulmonary embolism. 2. Near complete resolution of the previously described right lower lobe pulmonary infarction. THIS IS AN ELECTRONICALLY VERIFIED FINAL REPORT 02/23/2021 1:33 PM - Electronically signed by Ganga Carroll M.D. JA: DUNG Report ID: [id number] Reading Location: [id number] us Starr SALVADOR IMG CT PROCEDURES Final Re sult * POCT creatinine for contrast evaluation (02/23/2021 9:13 AM CDT) Creatinine POC 0.60 0.60 - 1.10 mg/dL [facility] Comment:Testing performed by : [facility], [address] [place] [address]., [id number] Blood specimen (specimen) 02/23/2021 9:13 AM CDT 02/23/2021 9:13 AM CDT Moiz Mondragon MD POINT OF CARE TEST ORDERABLES Final Result [facility] [address] [facility] [place] [address] documented in this encounter Visit Diagnoses Diagnosis Other pulmonary embolism without acute cor pulmonale, unspecified chronicity (HCC) SOB (shortness of breath) Shortness of breath documented in this encounter Administered Medications Inactive Administered Medications - up to 3 most recent administrations Medication Order MAR Action Action Date Dose Rate Site ioversoL (OPTIRAY 350) syringe syringe 100 mL 100 mL, intravenous, Once in imaging, contrast, Starting on Daphne 02/23/21 at 0912, For 1 dose Contrast Given 02/23/2021 9:24 AM CDT 80 mL sodium chloride 0.9% flush 125 mL 125 mL, intravenous, Once in imaging, line care, Starting on Daphne 02/23/21 at 0912, For 1 dose Given 02/23/2021 9:24 AM CDT 125 mL documented in this encounter Orders Imaging Orders Without Results Count Last Order ed Date First Ordered Date CT CHEST W CONTRAST 1 02/23/2021 documented in this encounter Care Teams Timber Trimmer Relationship Specialty Start Date End Date Starr Bran PA [address] [place] [address] PCP - General Internal Medicine 12/30/18 Bruce Olea MD [address] [place] [address] Medical Oncologist/Make Up Arranger Medical Oncology 02/17/21 09/25/21 documented as of this encounter
--- OUTSIDE RECORDS SUMMARY | 2024-07-18 20:34 | XMS_ITS | Encounter Summary ---
Author Organization [facility] Address [address] [place] [address] Care Team Providers Care Blueprint Duplicator Name Role Phone Starr Bran Primary Care Provider [phone]- [phone] Bruce Olea MD Unavailable [phone] Reason for Visit * Reason Comments Injections Encounter Details Date Type Department Care Team (Latest Contact Info) Description 05/10/2021 9:30 AM CDT Clinical Support [facility] Family Medicine [address] [facility] [address] [place] [address] Low vitamin B12 level (Primary [...] on file 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 Gender Identity Female 02/02/2021 7:25 AM [...] 1,000 mcg 1,000 mcg, intramuscular, Once, On Sat05/10/21 at 1030, For 1 doseIndications:Low vitamin B12 level Given 05/10/2021 9:50 AM CDT 1,000 mcg Right Deltoid documented in this encounter Care Teams Blueprint Duplicator Relationship Specialty Start Date End Date Starr Bran PA [address] [place] [address] PCP - General Internal Medicine 12/30/18 Bruce Olea MD [address] [place] [address] Medical Oncologist/Manufacturing Technology Analyst Medical Oncology 02/17/21 09/25/21 documented as of this encounter
--- OUTSIDE RECORDS SUMMARY | 2024-07-18 20:34 | XMS_ITS | Encounter Summary ---
Author Organization [facility] Address [address] [facility] [address] [place] [address] Phone Care Team Providers Care Director Chemistry Name Role Phone Starr Bran Primary Care Provider [phone] Bruce Olea MD Unavailable [phone] Bibiana Schuler MD Unavailable [phone] Reason for Visit * Reason Comments Follow-up Anemia Encounter Details Date Type Department Care Team (Late st Contact Info) Description 05/11/2021 10:30 AM CDT Office Visit [facility] Physicians [facility] Oncology [facility] [facility] [address] [place] [address] Bruce Olea MD [address] [place] [place] [address] Iron deficiency anemia due to chronic blood loss (Primary Dx); DVT (deep venous thrombosis) (CMS/HCC) (HCC) Social History Tobacco Use Types [...] on file 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 Gender Identity Female 02/02/2021 7:25 AM CDT Sexual Orientation Straight 02/02/2021 7: 25 AM CDT documented as of this encounter Last Filed Vital Signs Vital Sign Reading Time Taken Comments Blood Pressure 129/85 05/11/2021 10:20 AM CDT Pulse 95 05/11/2021 10:20 AM CDT Temperature 36.5 ??C (97.7 ??F) 05/11/2021 10:20 AM C DT Respiratory Rate 16 05/11/2021 10:20 AM CDT Oxygen Saturation 98% 05/11/2021 10:20 AM CDT Inhaled Oxygen Concentration - - Weight 89 kg (196 lb 3.2 oz) 05/11/2021 10:20 AM CDT Height 160 cm (5' 3 ) 05/11/2021 10:20 AM CDT Body Mass Index 34.76 05/11/2021 10:20 AM CDT documented in this encounter Patient Instructions * Patient Instructions* Mary Camp RN - 05/11/2021 10:30 AM CDT PLEASE CALL DR SCHULER'S OFFICE [phone] for follow-up appointment documented in this encounter Progress Notes * Bruce Olea MD - 05/11/2021 10:30 AM CDT Visit Date: 05/11/2021 Requesting Provider: Bruce Olea MD Primary Care Physician: Starr Bran PA Diane R Paz 56 y.o. female Chief Complaint: The patient was referred for my opinion and recommendations regarding further evaluation and management of iron deficiency anemia and PE HPI: 55-year-old pleasant female with a past medical history of hypertension who initially presented on 09/28/20 to her family physician for fatigue. She was found to have hemoglobin of 4.8 and was sent to the ED of [facility] where hemoglobin was 4.6 with MCV of 65.2. No hemorrhoidal bleeding. Her Cologuard test was negative. She denied any family history of colon cancer. She received 3 units of PRBC then. FOBT was positive then. She was started on ferrous sulfate 325 mg b.i.d. and discharged for outpatient follow-up. She underwent upper EGD and colonoscopy in September [address] Schuler. It wasonly significant for antral gastritis. Iron studies then showed ferritin of 8, TIBC 4.0 and transferrin saturation of 2%. She again was admitted on 11/01/2020 with chest pain the and shortness of breath and was found to have extensive bilateral pulmonary embolism with tiny subtle component without heart strain. She was also found to have new small foci of consolidation within the right lower lobe reflective of pulmonary infarct. She was initially started on heparin and subsequently switched to Eliquis. She underwentDoppler of the lower extremity of from 11/02/2020 which showed acute DVT of the distal femoral, popliteal, posterior tibial and peroneal veins of the right lower extremity. She underwent abdominal and pelvic CT 11/02/2020. which shows redemonstration of pulmonary embolismand right lower lobe pulmonary infarct. She was also found to have a uterine fibroid. Vitamin B12 level during this admission was less than 150pg/ml. Thrombophilia workup was negative. However lupus anticoagulant and prothrombin gene mutation was not sent. Surprisingly she did have parietal cell antibody which was very high 49.4. Capsule endoscopydone by Dr. Schuler was also negative. 02/23/2021: CT angiogram of the chest shows resolution of the previous visualized pulmonary embolism. Near complete resolution of previously described right lower lobe pulmonary infarct. Interval history: She presents today for follow-up. Last Ferritin in March 2021 only 9%. Last vitamin B12 was also borderline in March 2021: Her anemia is worsening. Current hemoglobin is 8.7 with MCV of 89.6. Past Medical History: Diagnosis Date ??? Anemia ??? Hypertension No past surgical history on file. Prior to Admission medications Medication Sig Start Date End Date Taking? Authorizing Provider apixaban (ELIQUIS) 5 mg tablet Take 1 tablet (5 mg total) by mouth every 12 (twelve) hours 11/10/20 Yes Starr Bran PA ferrous sulfate 325 mg (65 mg of elemental iron) tablet Take 1 tablet (325 mg total) by mouth 2 (two) times a day 10/27/20 Yes Starr Bran PA lisinopriL (PRINIVIL,ZESTRIL) 10 mg tablet Take 1 tablet (10 mg total) by mouth daily 10/09/20 Yes Starr Bran PA multivitamin (DAILY MULTI-VITAMIN) tablet daily Yes ProviderSaloni MD No Known Allergies Social History Socioeconomic History ??? Marital status: Spouse name: Not on file ??? Number of children: Not on file ??? Years of education: Not on file ??? Highest education level: Not on file Occupational History ??? Not on file Tobacco Use ??? Smoking status: Never Smoker ??? Smokeless tobacco: Never Used Substance and Sexual Activity ??? Alcohol use: Not on file ??? Drug use: Never ??? Sexual activity: Not on file Other Topics Concern ??? Not on file Social History Narrative ??? Not on file Social Determinants of Health Financial Resource Strain: ??? Difficulty of Paying Living Expenses: Not on file Food Insecurity: ??? Worried About Running Out of Food in the Last Year: Not on file ??? Ran Out of Food in the Last Year: Not on file Transportation Needs: ??? Lack of Transportation (Medical): Not on file ??? Lack of Transportation (Non-Medical): Not on file Physical Activity: ??? Days of Exercise per Week: Not on file ??? Minutes of Exercise per Session: Not on file Stress: ??? Feeling of Stress : Not on file Social Connections: ??? Frequency of Communication with Friends and Family: Not on file ??? Frequency of Social Gatherings with Friends and Family: Not on file ??? Attends Faith Services: Not on file ??? Active Member of Clubs or Organizations: Not on file ??? Attends Club or Organization Meetings: Not on file ??? Marital Status: Not on file Intimate Partner Violence: ??? Fear of Current or Ex-Partner: Not on file ??? Emotionally Abused: Not on file ??? Physically Abused: Not on file ??? Sexually Abused: Not on file Family History Problem Relation Age of Onset [...] Nephew ??? No Known Problems Other ??? BRCA1 Positive Neg Hx ??? BRCA2 Positive Neg Hx ??? Breast cancer Neg Hx ??? Ovarian cancer Neg Hx ??? Benign Breast Condition Neg Hx ??? Ductal Carcinoma In-Situ Neg Hx ??? Usual Breast Hyperplasia Neg Hx ??? Thyroid cancer Neg Hx ??? Endometrial cancer Neg Hx Review of Systems: Review of systems with pertinent positives as per HPI. All other systems are negative. Objective ECOG 0 Vitals BP 129/85 (BP Location: Left arm) Pulse 95 Temp 36.5 ??C (97.7 ??F) (Temporal) Resp 16 Ht 160 cm (5' 3 ) Wt 89 kg (196 lb 3.2 oz) SpO2 98% BMI 34.76 kg/m?? Physical Exam: -GENERAL: calm -EYES: Extraocular movements intact -ENT: Neck supple, Septum is midline. -LUNG: Clear to auscultation bilaterally, No wheezes, No crackles -CVS: Regular rate rhythm, S1 and S2 normal, No murmurs, -ABDOMEN: Soft, nondistended, Nontender, Bowel sounds observed -EXT: no lower Ext edema. -SKIN: Skin color, texture, turgor normal. No rashes or lesions Lab/Radiology/Diagnostic Review: Recent Results (from the past 336 hour(s)) CBC with auto differential Collection Time: 05/11/21 9:59 AM Result Value Ref Range WBC 5.1 3.8 - 9.9 K/cumm Hgb 8.7 (L) 11.9 - 15.5 g/dL Hct 28.5 (L) 35.6 - 45.5 % Plt 300 150 - 400 K/cumm MPV 10.6 9.1 - 12.3 fL RBC 3.18 (L) 3.90 - 5.20 M/cumm MCV 89.6 81.3 - 96.4 fL MCH 27.4 27.1 - 33.3 pg MCHC 30.5 (L) 32.3 - 35.7 g/dL RDW CV 14.0 11.1 - 14.9 % RDW SD 45.3 35.7 - 48.1 fL Differential, auto Collection Time: 05/11/21 9:59 AM Result Value Ref Range Neutrophil abs 3.6 1.7 - 6.5 K/cumm Lymphocyte abs 1.0 0.8 - 3.3 K/cumm Monocyte abs 0.3 0.2 - 0.8 K/cumm Eosinophil abs 0.1 0.0 - 0.5 K/cumm Basophil abs 0.1 0.0 - 0.1 K/cumm Neutrophil pct 70.3 % Imm gran pct 0.2 % Lymphocyte pct 19.4 % Monocyte pct 6.7 % Eosinophil pct 2.4 % Basophil pct 1.0 % Patient Active Problem List Diagnosis Date Noted ??? Moderate episode of recurrent major depressive disorder (HCC) 04/23/2021 ??? Obesity (BMI 30-39.9) 04/12/2021 ??? BMI 35.0-35.9,adult 04/12/2021 ??? SOB (shortness of breath) 02/19/2021 ??? Bilateral pulmonary embolism (CMS/HCC) ([facility]) 11/15/2020 ??? Low vitamin B12 level 11/15/2020 ??? DVT (deep venous thrombosis) (CMS/HCC) (HCC) 11/15/2020 ??? Acute pain of left knee 11/15/2020 ??? Iron deficiency anemia due to chronic blood loss 10/09/2020 ??? SOB (shortness of breath) on exertion 09/25/2020 ??? Hyperglycemia 01/19/2019 ??? Other fatigue 01/19/2019 ??? Essential hypertension 01/16/2019 ??? Menorrhagia with regular cycle 01/16/2019 ??? Vitamin D deficiency 01/16/2019 Assessment/ Plan: 1. Iron deficiency anemia: A GI workup with colonoscopy, EGD and capsule endoscopy were all negative for acute bleed. Stool for occult blood was positive and she could be having a slow GI bleed. She is currently on ferrous sulfate 325 mg b.i.d. anemia worsening. Hemoglobin 8.7 today. Continue supplementation of iron orally. Awaiting iron studies from today. Will likely need IV iron. Depo provera was stopped after DVT. Hence she does have menorrhagia at present. This is likely the result of her iron deficiency. She will follow with her lion trainer. 2. 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 Likely the cause of lack of oral vitamin B12 absorption. Continue parenteral substitution of vitamin B12 which is being done by herPCP, Dr. Bran. She receives vitamin B12 injections once monthly. Current B12 level 375. Resultsfrom today awaited. Receiving B12 injections every 2 weeks. She also needs to follow-up with Dr. Schuler for surveillance endoscopy as she likely has pernicious anemia. 3. Follow-up in 3 months with repeat CBC, B12 level and iron studies along with ferritin. 4. 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 Currently on Eliquis. Thrombophilia workup is completely negative. Recent CT chest angiogram by her PCP Dr. Bran done on 02/23/2021 shows resolution of the previously visualized PE as well as near complete resolution of the previously described right lower lobe of lung pulmonary infarct. Since she had such extensive DVTs along with pulmonary infarction, it may be difficult to discontinue Eliquis in the recent future. Bruce Olea MD 05/11/2021 Collections Director completed by using M*Modal Fluency Direct speaking software, therefore, transcriptionvariances may occur documented in this encounter Miscellaneous Notes * Addendum Note - Mary Camp RN - 05/11/2021 10:30 AM CDTAddended by: MARY CAMP on: 05/11/2021 02:39 PM Modules accepted: Orders * Addendum Note - Mary Camp RN - 05/11/2021 10:30 AM CDTAddended by: MARY CAMP on: 05/14/2021 02:46 PM Modules accepted: Orders * Addendum Note - Mary Camp RN - 05/11/2021 10:30 AM CDTAddended by: MARY CAMP on: 05/14/2021 02:49 PM Modules accepted: Orders documented in this encounter Plan of Treatment Not on file documented as of this encounter Visit Diagnoses Diagnosis Iron deficiency anemia due to chronic blood loss- Primary Iron deficiency anemia secondary to blood loss (chronic) DVT (deep venous thrombosis) (CMS/HCC) (HCC) Acute venous embolism and thrombosis of unspecified deep vessels of lower extremity documented in this encounter Orders Appointment Requests Count Last Ordered Date Fi rst Ordered Date INFUSION APPT REQUEST 180 MIN 2 05/22/2021 05/15/2021 [facility]IC APPOINTMENT REQUEST 1 021 documented in this encounter Care Teams Director Chemistry Relationship Specialty Start Date End Date Starr Bran PA [address] [place] [address] PCP - General Internal Medicine 12/30/18 Bruce Olea MD [address] [place] [address] Medical Oncologist/Dry Cell Tester Medical Oncology 02/17/21 09/25/21 Bibiana Schuler MD [address] [place] [address] [address] [place] [address] Consulting Physician Gastroenterology 05/11/21 documented as of this encounter
--- OUTSIDE RECORDS SUMMARY | 2024-07-18 20:34 | XMS_ITS | Encounter Summary ---
Author Organization [facility] Address [address] [facility] [address] [place] [address] Phone Care Team Providers Care Asset Protection Detective Name Role Phone Starr Bran Primary Care Provider [phone] Bruce Olea MD Unavailable [phone] Bibiana Schuler MD Unavailable [phone] Encounter Details Date Type Department Care Team (Late st Contact Info) Description 05/24/2021 Telephone [facility] Oncology [address] [place] [address] [address] [place] [address] Kym Anderson Social History Tobacco Use Types Packs/Day Years [...] on file 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 Bell about her options regarding transferring care. She would like to stay in [place] if possible if there is any possibility she will continue to receive infusions. She states that she lives in [place] and it would actually be quite convenient to be seen in our [place] office by Dr. Garcia if possible. Daina has her scheduled for 07/07/21 at 11:30 AM. She is aware of the date/time/location and will go to the [facility] in [place] this , 06/15/21, to have her labs done (CBC, iron profile, ferritin & reticulocyte count). I told her we will follow up on these labs and give her a call with the results. Should any further labwork be needed prior to her appo intment on 07/07/21, we will let her know. She was very appreciative of all information provided and will call with further questions/concerns. GE ENTRY SPECIALIST * Telephone Encounter - Cornelius Garcia DO - 06/13/2021 11:12 AM CHARGE ENTRY SPECIALIST Rosalinda Here are the options for the patient: Allie: Dr. Sandoval or [facility]: Dr. Paola Mcmanus She needs CBC, Ferritin and iron profile and retic count this week Thanks JEstefanía GE ENTRY SPECIALIST * Telephone Encounter - Kym Anderson - 06/09/2021 2:45 PM CST Update: I did just speak with Ms. Bell, who did see her sales technician. He felt a hysterectomy would be too risky of a procedure for her and did a D&C with ablation last week instead. The hope is that this will stop her periods for a long enough period of time that she will likely undergo menopause before she would begin having them again. I told her I will discuss with Dr. Garcia to see who he recommends she follow up with from a hematology-perspective and I will call her back. She was appreciative and will call in the meantime with further questions/concerns. GE ENTRY SPECIALIST * Telephone Encounter - Kym Anderson - 06/09/2021 2:24 PM CST Ms. Bell is currently a patient of Dr. Lang. I spoke with her on 05/24/21 and she was questioning whether or not she should transfer her care. She was initially hospitalized at [facility] in September due to fatigue and feeling unwell. Her hemoglobin was noted to be 4.6 at that time. She has since received blood transfusions, multiple iron infusions, had a GI work-up with Dr. Schuler (upper endoscopy, colonoscopy and capsule endoscopy), but has never found out the cause of her anemia. On 11/01/20, she was found to have a pulmonary embolism and was started on blood thinners. She told me that she had been on control, as she has not yet gone through menopause. She was told she should come off of this due to the PE, but now she is having very heavy periods. Her PCP has recommended she discuss having a hysterectomy with her sales technician, but is on blood thinners, which makes this slightly more complicated. She has also been receiving B12 injections over the past several months. She said that she feels like she just keeps slapping band-aids on, but isn't really finding out the cause of anyof her issues. I told her I will discuss with Dr. Garcia, our medical billing clerk, to see what reel slitter he recommends we get her set up with. She was very appreciative and will call in the meantime with further questions/concerns. GE ENTRY SPECIALIST documented in this encounter Plan of Treatment Not on file documented as of this encounter Procedures Procedure Name Priority Date/Time Associated Diagnosis Comments IRON PROFILE W/ IBC Routine 06/15/2021 1 1:51 AM CHARGE ENTRY SPECIALIST History of pulmonary embolus (PE) Low vitamin B12 level Iron deficiency anemia due to chronic blood loss History of DVT (deep vein thrombosis) CBC WITH AUTO DIFFERENTIAL Routine 06/15/2021 11:51 AM CHARGE ENTRY SPECIALIST History of pulmonary embolus (PE) Low vitamin B12 level Iron deficiency anemia due to chronic blood loss History of DVT (deep vein thrombosis) RETICULOCYTES Routine 06/15/2021 11:51 AM CHARGE ENTRY SPECIALIST History of pulmonary embolus (PE) Low vitamin B12 level Iron deficiency anemia due to chronic blood loss History of DVT (deep vein thrombosis) FERRITIN Routine 06/15/2021 11:51 AM CHARGE ENTRY SPECIALIST History of pulmonary embolus (PE) Low vitamin B12 level Iron deficiency anemia due to chronic blood loss History of DVT (deep vein thrombosis) documented in this encounter Results * (ABNORMAL) Reticulocyte Count (06/15/2021 11:51 AM CHARGE ENTRY SPECIALIST) Reticulocyte Count 4.6(H) 0.6 - 2.6 % [facility] - 01 Blood specimen (specimen) 06/15/2021 11:51 AM CHARGE ENTRY SPECIALIST 06/15/2021 Narrative [facility] - 06/16/2021 9:36 AM CHARGE ENTRY SPECIALIST Performed at: ??01 - [facility] [address] ??[id number] Pot Sander: Parveen Lofton PhD, Phone: ??[phone] us Cornelius Garcia DO LAB BLOOD ORDERABLES Final R esult [facility] - 01 * (ABNORMAL) Iron profile w/ IBC (06/15/2021 11:51 AM CHARGE ENTRY SPECIALIST) Iron Bind.Cap.(TIBC) 345 250 - 450 ug/dL [facility] - 01 UIBC 319 131 - 425 ug/dL [facility] - 01 Iron 26(L) 27 - 159 ug/dL [facility] - 01 Iron saturation 8(LL) 15 - 55 % [facility] - 01 Blood specimen (specimen) 06/15/2021 11:51 AM CHARGE ENTRY SPECIALIST 06/15/2021 Narrative [facility] - 06/16/2021 9:36 AM CHARGE ENTRY SPECIALIST Performed at: ??01 - [facility] [address] ??[id number] Pot Sander: Parveen Lofton PhD, Phone: ??[phone] Cornelius Garcia DO LAB BLOOD ORDERABLES Final R esult Performing Organization Address [facility] de Phone Number [facility] - * Ferritin (06/15/2021 11:51 AM CHARGE ENTRY SPECIALIST) [facility] Ferritin 55 15 - 150 ng/mL [facility] - 01 Blood specimen (specimen) 06/15/2021 11:51 AM CHARGE ENTRY SPECIALIST 06/15/2021 Narrative [facility] - 06/16/2021 9:36 AM CHARGE ENTRY SPECIALIST Performed at: ??01 - [facility] [address] ??[id number] Pot Sander: Parveen Lofton PhD, Phone: ??[phone] Cornelius Garcia DO LAB BLOOD ORDERABLES Final R esult Performing Organization Address [facility] Co de Phone Number [facility] - * (ABNORMAL) CBC with auto differential (06/15/2021 11:51 AM CHARGE ENTRY SPECIALIST) [facility] WBC 4.6 3.4 - 10.8 x10E3/uL [facility] - 01 RBC 3.76(L) 3.77 - 5.28 x10E6/uL [facility] - 01 Hgb 10.5(L) 11.1 - 15.9 g/dL [facility] - 01 Hct 33.7(L) 34.0 - 46.6 % [facility] - 01 MCV 90 79 - 97 fL [facility] - 01 MCH 27.9 26.6 - 33.0 pg [facility] - 01 MCHC 31.2(L) 31.5 - 35.7 g/dL [facility] - 01 Rdw 15.4 11.7 - 15.4 % [facility] - 01 Platelets 243 150 - 450 x10E3/uL [facility] - 01 Neutrophils pct 72 Not Estab. % [facility] - 01 Lymphs pct 22 Not Estab. % [facility] - 01 Monocytes pct 4 Not Estab. % [facility] - 01 Eosinophils pct 2 Not Estab. % [facility] - 01 Basophil pct 0 Not Estab. % [facility] - 01 Neutrophil abs 3.3 1.4 - 7.0 x10E3/uL [facility] - 01 Lymphs (Absolute) 1.0 0.7 - 3.1 x10E3/uL [facility] - 01 Monocyte abs 0.2 0.1 - 0.9 x10E3/uL [facility] - 01 Eosinophils, abs 0.1 0.0 - 0.4 x10E3/uL [facility] - 01 Basophils, abs 0.0 0.0 - 0.2 x10E3/uL [facility] - 01 Immature Granulocytes 0 Not Estab. % [facility] - 01 Immature Grans (Abs) 0.0 0.0 - 0.1 x10E3/uL [facility] - 01 Blood specimen (specimen) 06/15/2021 11:51 AM CHARGE ENTRY SPECIALIST 06/15/2021 Narrative [facility] - 06/16/2021 9:36 AM CHARGE ENTRY SPECIALIST Performed at: ??01 - [facility] [address] ??[id number] Pot Sander: Parveen Lofton PhD, Phone: ??[phone] Cornelius Garcia DO LAB BLOOD ORDERABLES Final R esult [facility] - 01 documented in this encounter Visit Diagnoses Diagnosis History of pulmonary embolus (PE)- Primary Low vitamin B12 level Iron deficiency anemia due to chronic blood loss Iron deficiency anemia secondary to blood loss (chronic) History of DVT (deep vein thrombosis) documented in this encounter Orders Appointment Requests Count Last Ordered Date Fi rst Ordered Date [facility] CLINIC APPOINTMENT REQUEST 1 021 documented in this encounter Care Teams Asset Protection Detective Relationship Specialty Start Date End Date Starr Bran PA [address] [place] [address] PCP - General Internal Medicine 12/30/18 Bruce Olea MD [address] [place] [address] Medical Oncologist/Income Auditor Medical Oncology 02/17/21 09/25/21 Bibiana Schuler MD [address] [place] [address] Consulting Physician Gastroenterology 05/11/21 documented as of this encounter
--- OUTSIDE RECORDS SUMMARY | 2024-07-18 20:34 | XMS_ITS | Encounter Summary ---
Author Organization [facility] Address [address] [place] [address] Phone Care Team Providers Care Bullet Swaging Machine Operator Name Role Phone Starr Bran Primary Care Provider [phone] Bruce Olea MD Unavailable [phone] Encounter Details Date Type Department Care Team (Late st Contact Info) Description 02/16/2021 Orders Only [facility] Physicians [facility] Oncology [address] [facility] [address] [place] [address] Bruce Olea MD [address] [place] [address] Social History Tobacco Use Types Packs/Day Years [...] on file Legal Sex Female 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 Gender Identity Female 02/02/2021 7:25 AM CDT Sexual Orientation Straight 02/02/2021 7: 25 AM CDT documented as of this encounter Plan of Treatment Not on file documented as of this encounter Visit Diagnoses Not on filedocumented in this encounter Care Teams Bullet Swaging Machine Operator Relationship Specialty Start Date End Date Starr Bran PA [address] [place] [address] PCP - General Internal Medicine 12/30/18 Bruce Olea MD [address] [place] [address] Medical Oncologist/Senior Qa Tester Medical Oncology 02/17/21 09/25/21 documented as of this encounter
--- OUTSIDE RECORDS SUMMARY | 2024-07-18 20:34 | XMS_ITS | Encounter Summary ---
Author Organization [facility] Address [address] [place] [address] Care Team Providers Care Cook Fruit Name Role Phone Starr Bran Primary Care Provider [phone] Reason for Referral * MRI/CAT/PET Scan (Routine) - Closed Specialty Diagnoses / Procedures Referred By Contac t Referred To Contact Radiology Diagnoses Bilateral pulmonary embolism (CMS/HCC) (HCC) SOB (shortness of breath) Procedures CT Chest W Contrast Starr Bran PA [address] [place] [address] Phone: tel: fax: [address] [address] Referral ID Status Reason Start Date Expiration Date Visits Re quested Visits Authorized [id number] Closed 02/15/2021 03/17/2022 1 1 Reason for Visit * Reason Comments Follow-up B12 Injection Encounter Details Date Type Department Care Team (Late Contact Info) Description 02/15/2021 8:00 AM CDT Office Visit [facility] Family Medicine [address] [place] [address] Starr Bran PA [address] [place] [address] Essential hypertension (Primary Dx); Bilateral pulmonary embolism (CMS/HCC) (HCC); DVT (deep venous thrombosis) (CMS/HCC) (HCC); Vitamin D deficiency; Low vitamin B12 level; Iron deficiency anemia due to chronic blood loss; SOB (shortness of breath); Obesity (BMI 30-39.9); BMI 34.0-34.9,adult; SOB (shortness of breath) on exertion Social History Tobacco Use Types Packs/Day Years [...] on file 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 Gender Identity Female 02/02/2021 7:25 AM CDT Sexual Orientation Straight 02/02/2021 7: 25 AM CDT documented as of this encounter Last Filed Vital Signs Vital Sign Reading Time Taken Comments Blood Pressure 120/80 02/15/2021 7:58 AM CDT Pulse 92 02/15/2021 7:58 AM CDT Temperature 37.4 ??C (99.3 ??F) 02/15/2021 7:58 AM CD T Respiratory Rate - - Oxygen Saturation 98% 02/15/2021 7:58 AM CDT Inhaled Oxygen Concentration - - Weight 89.2 kg (196 lb 9.6 oz) 02/15/2021 7:58 A M CDT Height 160 cm (5' 3 ) 02/15/2021 7:58 AM CDT Body Mass Index 34.83 02/15/2021 7:58 AM CDT documented in this encounter Ordered Prescriptions Prescription Sig Dispense Quantity Refills Last Filled Start Date End Date lisinopriL (PRINIVIL,ZESTRIL) 10 mg tablet Take 1 tablet (10 mg total) by mouth daily 90 tablet 3 02/15/2021 05/17/2021 apixaban (Eliquis) 5 mg tabletIndications: DVT (deep venous thrombosis) (CMS/HCC) (HCC) Take 1 tablet (5 mg total) by mouth every 12 (twelve) hours 180 tablet 1 02/15/2021 08/29/2021 documented in this encounter Progress Notes * Starr Bran PA - 02/15/2021 8:00 AM CDT Images from the original note were not included. Subjective/Objective Patient ID: Viktoriya Bell is a 55 y.o. female. Chief Complaint Follow-up and B12 Injection HPI Patient presents to followup chronic concerns. Just saw Dr. Olea. B12 is low normal with monthly injections so will need to increase to q 2 weeks. Iron panel again has dropped again. Patient is symtpmatic. She Is fatigued, SOB. Will contact Dr. Olea to determine if iron infusion is indicated. Is worried about returning to work (has been working from home) due to the increased fatigue with walking History DVT/PE. ON Eliquis. Will repeat CTchest but Dr. Olea states with extensive PE load, would probably need to stay on ACindefinitely. Plan CT [facility] Stopped DepoProvera. No Bleeding. HTN - stable with lisinopril. Patient thinks she has a sinus infection. Facial pressure/forehead. Drainage at night that triggers a cough Rhinorrhea. No fever. Mamm - 04/2020 FLU - UTD cologuard 09/2020 Tdap - UTD COVID Pfizerx2 done Lab Results Component Value Date WBC 5.0 02/09/2021 HGB 9.8 (L) 02/09/2021 HCT 31.8 (L) 02/09/2021 MCV 89.1 02/09/2021 LABPLAT 293 02/09/2021 Lab Results Component Value Date VITB12 230 02/09/2021 Lab Results Component Value Date IRON 14 (L) 02/09/2021 TIBC 349 02/09/2021 FERRITIN 11 (L) 02/09/2021 Review of Systems Constitutional: Negative for fever. HENT: Negative for congestion. Respiratory: Negative for shortness of breath. Cardiovascular: Negative for chest pain. Gastrointestinal: Negative for constipation and diarrhea. Vitals: 02/15/21 0758 BP: 120/80 BP Location: Left arm Patient Position: Sitting Pulse: 92 Temp: 37.4 ??C (99.3 ??F) TempSrc: Oral SpO2: 98% Weight: 89.2 kg (196 lb 9.6 oz) Height: 160 cm (5' [...] Diagnoses and all orders for this visit: Essential hypertension (I10) (Primary) Assessment & Plan: Bp is stable/in acceptable range for any co-morbidities. Encouraged to limit sodium intake and exercise for weight control. Continue lisinopril 10mg Bilateral pulmonary embolism (CMS/HCC) (I26.99) Assessment & Plan: Continue AC Eliquis Recheck CT chest as had extensive (B) PE and she has continued to have intermittent SOB Orders: - CT Chest W Contrast; Future DVT (deep venous thrombosis) (CMS/HCC) (I82.409) Assessment & Plan: Continue Eliquis Orders: - apixaban (Eliquis) 5 mg tablet; Take 1 tablet (5 mg total) by mouth every 12 (twelve) hours Vitamin D deficiency (E55.9) Assessment & Plan: supplement Low vitamin B12 level (E53.8) Assessment & Plan: B12 is low with monthly B12 so will go to 2 times a month Orders: - cyanocobalamin (Vitamin B-12) injection 1,000 mcg; Inject 1 mL (1,000 mcg total) into the muscle as instructed once Iron deficiency anemia due to chronic blood loss (D50.0) Assessment & Plan: Anemic/Iron panel again low. Will consult Dr. Olea to determine if she is a candidate for iron infusion SOB (shortness of breath) (R06.02) - CT Chest W Contrast; Future Obesity (BMI 30-39.9) (E66.9) Assessment & Plan: Obesity is unchanged. Discussed the patient's BMI. The BMI is above average. BMI management plan is completed. BMI Follow-up includes: nutrition counseling, exercise counseling and education provided. BMI 34.0-34.9,adult (Z68.34) Assessment & Plan: Obesity is unchanged. Discussed the patient's BMI. The BMI is above average. BMI management plan is completed. BMI Follow-up includes: nutrition counseling, exercise counseling and education provided. SOB (shortness of breath) on exertion (R06.02) Assessment & Plan: May be multifactorial. Anemia vs PE vs other etiology. Will check CT for resolution of PE. Await recommendations from Dr. Olea regarding anemia. She is to call if has increased sxs or respiratory issues or cardiac issues. Other orders - lisinopriL (PRINIVIL,ZESTRIL) 10 mg tablet; Take 1 tablet (10 mg total) by mouth daily Starr Bran PA-C documented in this encounter Miscellaneous Notes * Assessment & Plan Note - Starr Bran PA - 02/19/2021 9:54 PM CDT Associated Problem(s): PHAN (dyspnea on exertion) May be multifactorial. Anemia vs PE vs other etiology. Will check CT for resolution of PE. Await recommendations from Dr. Olea regarding anemia. She is to call if has increased sxs or respiratory issues or cardiac issues. * Assessment & Plan Note - Starr Bran PA - 02/19/2021 9:53 PM CDT Associated Problem(s): Iron deficiency anemia due to chronic blood loss Anemic/Iron panel again low. Will consult Dr. Olea to determine if she is a candidate for iron infusion * Assessment & Plan Note - Starr Bran PA - 02/19/2021 9:52 PM CDT Associated Problem(s): Low vitamin B12 level B12 is low with monthly B12 so will go to 2 times a month * Assessment & Plan Note - Starr Bran PA - 02/19/2021 9:52 PM CDT Associated Problem(s): Vitamin D deficiency supplement * Assessment & Plan Note - Starr Bran PA - 02/19/2021 9:52 PM CDT Associated Problem(s): History of DVT (deep vein thrombosis) Continue Eliquis * Assessment & Plan Note - Starr Bran PA - 02/19/2021 9:51 PM CDT Associated Problem(s): History of pulmonary embolus (PE) Continue AC Eliquis Recheck CT chest as had extensive (B) PE and she has continued to have intermittent SOB * Assessment & Plan Note - Starr Bran PA - 02/19/2021 9:51 PM CDT Associated Problem(s): Essential hypertension Bp is stable/in acceptable range for any co-morbidities. Encouraged to limit sodium intake and exercise for weight control. Continue lisinopril 10mg * Assessment & Plan Note - Flaco Morales MA - 02/15/2021 8:01 AM CDT Associated Problem(s): BMI 34.0-34.9,adult (Resolved 04/12/2021) Obesity is unchanged. Discussed the patient's BMI. The BMI is above average. BMI management plan is completed. BMI Follow-up includes: nutrition counseling, exercise counseling and education provided. * Assessment & Plan Note - Flaco Morales MA - 02/15/2021 8:00 AM CDT Associated Problem(s): Obesity (BMI 30-39.9) (Resolved 04/12/2021) Obesity is unchanged. Discussed the patient's BMI. The BMI is above average. BMI management plan is completed. BMI Follow-up includes: nutrition counseling, exercise counseling and education provided. documented in this encounter Plan of Treatment Not on file documented as of this encounter Visit Diagnoses Diagnosis Essential hypertension- Primary Unspecified essential hypertension Bilateral pulmonary embolism (CMS/HCC) (HCC) Other pulmonary embolism and infarction DVT (deep venous thrombosis) (CMS/HCC) (HCC) Acute venous embolism and thrombosis of unspecified deep vessels of lower extremity Vitamin D deficiency Low vitamin B12 level Iron deficiency anemia due to chronic blood loss Iron deficiency anemia secondary to blood loss (chronic) SOB (shortness of breath) Shortness of breath Obesity (BMI 30-39.9) BMI 34.0-34.9,adult SOB (shortness of breath) on exertion Shortness of breath documented in this encounter Administered Medications Inactive Administered Medications - up to 3 most recent administrations Medication Order MAR Action Action Date Dose Rate Site cyanocobalamin (Vitamin B-12) injection 1,000 mcg 1,000 mcg, intramuscular, Once, On Sat02/15/21 at 0915, For 1 doseIndications:Low vitamin B12 level Given 02/15/2021 8:45 AM CDT 1,000 mcg Left Deltoid documented in this encounter Discontinued Medications Medication Sig Discontinue Reason Start Date End Da te lisinopriL (PRINIVIL,ZESTRIL) 10 mg tablet Take 1 tablet (10 mg total) by mouth daily Reorder 12/14/2020 02/15/2021 Eliquis 5 mg tabletIndications:DVT (deep venous thrombosis) (CMS/HCC) ([facility]) TAKE 1 TABLET EVERY 12 HOURS Reorder 02/09/2021 02/15/2021 documented as of this encounter Orders Imaging Orders Without Results Count Last Order ed Date First Ordered Date CT CHEST W CONTRAST 1 02/15/2021 documented in this encounter Care Teams Cook Fruit Relationship Specialty Start Date End Date Starr Bran PA [address] [facility] [address] [place] [address] PCP - General Internal Medicine 12/30/18 documented as of this encounter
--- OUTSIDE RECORDS SUMMARY | 2024-07-18 20:34 | XMS_ITS | Encounter Summary ---
Author Organization [facility] Address [address] [place] [address] Care Team Providers Care Sports Development Officer Name Role Phone Starr Bran Primary Care Provider [phone] Bruce Olea MD Unavailable [phone] Encounter Details Date Type Department Care Team (Late st Contact Info) Description 04/26/2021 Orders Only [facility] Family Medicine [address] [place] [address] Joaquim Bynum MD [address] [address] Social History Tobacco Use Types Packs/Day Years [...] file 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 Gender Identity Female 02/02/2021 7:25 AM CDT Sexual Orientation Straight 02/02/2021 7: 25 AM CDT documented as of this encounter Plan of Treatment Not on file documented as of this encounter Procedures Procedure Name Priority Date/Time Associated Diagnosis Comments MAMMOGRAPHY Routine 04/18/2021 documented in this encounter Results * MAMMOGRAPHY (04/18/2021) us Joaquim Bynum MD HEALTH MAINTENANCE Edited Re sult - Final documented in this encounter Visit Diagnoses Not on filedocumented in this encounter Care Teams Sports Development Officer Relationship Specialty Start Date End Date Starr Bran PA [address] [place] [address] PCP - General Internal Medicine 12/30/18 Bruce Olea MD [address] [place] [address] Medical Oncologist/Salvationist Medical Oncology 02/17/21 09/25/21 documented as of this encounter
--- OUTSIDE RECORDS SUMMARY | 2024-07-18 20:34 | XMS_ITS | Encounter Summary ---
Author Organization [facility] Address [address] [facility] [address] [place] [address] Phone Care Team Providers Care Supervisory Clerk Name Role Phone Starr Bran Primary Care Provider [phone] Bruce Olea MD Unavailable [phone] Bibiana Schuler MD Unavailable [phone] Reason for Visit * Episode Based Medications (Routine) - Closed Specialty Diagnoses / Procedures Referred By Hung gao Referred To Contact Oncology Diagnoses Vitamin D deficiency Iron deficiency anemia due to chronic blood loss Procedures AL IRON SUCROSE INJECTION Bruce Olea MD [address] [facility] [place] [address] Phone: tel: fax: [facility] [address] [place] [address] [address] [place] [address] Phone: tel: fax: Referral ID Status Reason Start Date Expiration Date Visits Re quested Visits Authorized [id number] Closed 02/16/2021 03/18/2022 1 15 Encounter Details Date Type Department Care Team (Late st Contact Info) Description 05/15/2021 8:15 AM CDT Infusion [facility] [address] [place] [address] [address] [place] [address] Iron deficiency anemia due to chronic blood loss (Primary Dx); Vitamin D deficiency Social History Tobacco Use Types Packs/Day [...] on file 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 Gender Identity Female 02/02/2021 7:25 AM CDT Sexual Orientation Straight 02/02/2021 7: 25 AM CDT documented as of this encounter Last Filed Vital Signs Vital Sign Reading Time Taken Comments Blood Pressure 122/79 05/15/2021 8:20 AM CDT Pulse 81 05/15/2021 8:20 AM CDT Temperature 36.2 ??C (97.1 ??F) 05/15/2021 8:20 AM CD T Respiratory Rate - - Oxygen Saturation 100% 05/15/2021 8:20 AM CDT Inhaled Oxygen Concentration - - Weight - - Height - - Body Mass Index - - documented in this encounter Nursing Notes * Pastora Dale RN - 05/15/2021 8:15 AM CDT Tolerated treatment well documented in this encounter Plan of Treatment Not on file documented as of this encounter Visit Diagnoses Diagnosis Iron deficiency anemia due to chronic blood loss- Primary Iron deficiency anemia secondary to blood loss (chronic) Vitamin D deficiency documented in this encounter Administered Medications Inactive Administered Medications - up to 3 most recent administrations Medication Order MAR Action Action Date Dose Rate Site acetaminophen (TYLENOL) tablet 650 mg 650 mg, oral, Once, On 05/15/21 at 0900, For 1 dose, Indications: Pre-medIndications:Pre-med Given 05/15/2021 8:23 AM CDT 650 mg diphenhydrAMINE (BENADRYL) tab/cap 25 mg 25 mg, oral, Once as needed, pre-medication, Starting on Sat05/15/21 at 0821, Indications: Prophylaxis, MedicalIndications:Prophyla xis, Medical Given 05/15/2021 8:23 AM CDT 25 mg iron sucrose (VENOFER) 300 mg in sodium chloride 0.9% 250 mL IVPB 300 mg, intravenous, at 176.7 mL/hr, Administer over 90 Minutes, Once, On Sat05/15/21 at 0915, For 1 doseIndications:Iron deficiency anemia due to chronic blood loss,Vitamin D deficiency New Bag 05/15/2021 8:54 AM CDT 300 mg 176.7 mL/hr documented in this encounter Orders Nursing Count Last Ordered Date First Orde red Date VITAL SIGNS 1 05/15/2021 Appointment Requests Count Last Ordered Date Fi rst Ordered Date INFUSION APPT REQUEST 180 MIN 1 05/15/2021 documented in this encounter Care Teams Supervisory Clerk Relationship Specialty Start Date End Date Starr Bran PA [address] [place] [address] PCP - General Internal Medicine 12/30/18 Bruce Olea MD [address] [place] [address] Medical Oncologist/Quick Service Technician Medical Oncology 02/17/21 09/25/21 Bibiana Schuler MD [address] [place] [address] Consulting Physician Gastroenterology 05/11/21 documented as of this encounter
--- OUTSIDE RECORDS SUMMARY | 2024-07-18 20:34 | XMS_ITS | Encounter Summary ---
Author Organization [facility] Healthcare Address [address] [place] [address] Care Team Providers Care Facility Mechanic Name Role Phone Starr Bran Primary Care Provider [phone] Bruce Olea MD Unavailable [phone] Bibiana Schuler MD Unavailable [phone] Encounter Details Date Type Department Care Team (Late st Contact Info) Description 05/11/2021 10:00 AM CDT Lab [facility] [place] [facility] [address] [place] [id number] Iron deficiency anemia due to chronic blood loss; DVT (deep venous thrombosis) (CMS/HCC) (HCC) Social [...] on file 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[employer] Gender Identity Female 02/02/2021 7:25 AM CDT Sexual Orientation Straight 02/02/2021 7: 25 AM CDT documented as of this encounter Plan of Treatment Not on file documented as of this encounter Procedures Procedure Name Priority Date/Time Associated Diagnosis Comments DIFFERENTIAL AUTO Routine 05/11/2021 9:5 9 AM CDT Iron deficiency anemia due to chronic blood loss DVT (deep venous thrombosis) (CMS/HCC) (HCC) IRON PROFILE W/ IBC Routine 05/11/2021 9 :59 AM CDT Iron deficiency anemia due to chronic blood loss DVT (deep venous thrombosis) (CMS/HCC) (HCC) CBC WITH AUTO DIFFERENTIAL Routine 05/11/2021 9:59 AM CDT Iron deficiency anemia due to chronic blood loss DVT (deep venous thrombosis) (CMS/HCC) (HCC) FERRITIN Routine 05/11/2021 9:59 AM CDT Iron deficiency anemia due to chronic blood loss DVT (deep venous thrombosis) (CMS/HCC) (HCC) VITAMIN B12 Routine 05/11/2021 9:59 AM CDT Iron deficiency anemia due to chronic blood loss DVT (deep venous thrombosis) (CMS/HCC) (HCC) documented in this encounter Results * Differential, auto (05/11/2021 9:59 AM CDT) Neutrophil abs 3.6 1.7 - 6.5 K/cumm [facility] Comment:Testing performed by : [address] [address] Lymphocyte abs 1.0 0.8 - 3.3 K/cumm [facility] Comment:Testing performed by : [address] [address] Monocyte abs 0.3 0.2 - 0.8 K/cumm [facility] Comment:Testing performed by : [address] [address] Eosinophil abs 0.1 0.0 - 0.5 K/cumm [facility] Comment:Testing performed by : [address] [address] Basophil abs 0.1 0.0 - 0.1 K/cumm [facility] Comment:Testing performed by : [address] [address] Neutrophil pct 70.3 % [facility] Comment: Interpretive Data Percent cell count reference ranges are not reported, since discordance with absolute values may lead to misinterpretation of CBC data. Current Interpretive Data was last revised on 2017. Testing performed by: [address] [address] Imm gran pct 0.2 % [facility] Comment: Interpretive Data Percent cell count reference ranges are not reported, since discordance with absolute values may lead to misinterpretation of CBC data. Current Interpretive Data was last revised on 2017. Testing performed by: [address] [address] Lymphocyte pct 19.4 % [facility] Comment: Interpretive Data Percent cell count reference ranges are not reported, since discordance with absolute values may lead to misinterpretation of CBC data. Current Interpretive Data was last revised on 2017. Testing performed by: [address] [address] Monocyte pct 6.7 % [facility] Comment: Interpretive Data Percent cell count reference ranges are not reported, since discordance with absolute values may lead to misinterpretation of CBC data. Current Interpretive Data was last revised on 2017. Testing performed by: [address] [address] Eosinophil pct 2.4 % [facility] Comment: Interpretive Data Percent cell count reference ranges are not reported, since discordance with absolute values may lead to misinterpretation of CBC data. Current Interpretive Data was last revised on 2017. Testing performed by: [address] [address] Basophil pct 1.0 % [facility] Comment: Interpretive Data Percent cell count reference ranges are not reported, since discordance with absolute values may lead to misinterpretation of CBC data. Current Interpretive Data was last revised on 2017. Testing performed by: [address] [address] Blood 05/11/2021 9:59 AM CDT 05/11/2021 10:02 AM CDT us Bruce Olea MD LAB BLOOD ORDERABLES Final Res ult [facility] [address] [facility] [place] [address] * (ABNORMAL) CBC with auto differential (05/11/2021 9:59 AM CDT) WBC 5.1 3.8 - 9.9 K/cumm [facility] GARCIA Comment:Testing performed by : [address] [address] Hgb 8.7(L) 11.9 - 15.5 g/dL [facility] Comment:Testing performed by : [address] [address] Hct 28.5(L) 35.6 - 45.5 % [facility] Comment:Testing performed by : [address] [address] Plt 300 150 - 400 K/cumm [facility] Comment:Testing performed by : [address] [address] MPV 10.6 9.1 - 12.3 fL [facility] Comment:Testing performed by : [address] [address] RBC 3.18(L) 3.90 - 5.20 M/cumm [facility] GARCIA Comment:Testing performed by : [address] [address] MCV 89.6 81.3 - 96.4 fL [facility] Comment:Testing performed by : [address] [address] MCH 27.4 27.1 - 33.3 pg [facility] GARCIA Comment:Testing performed by : [address] [address] MCHC 30.5(L) 32.3 - 35.7 g/dL [facility] Comment:Testing performed by : [address] [address] RDW CV 14.0 11.1 - 14.9 % [facility] GARCIA Comment:Testing performed by : [address] [address] RDW SD 45.3 35.7 - 48.1 fL [facility] GARCIA Comment:Testing performed by : [address] [address] Blood 05/11/2021 9:59 AM CDT 05/11/2021 10:02 AM CDT Bruce Olea MD LAB BLOOD ORDERABLES Final Res ult Performing Organization Address City/[facility]/ZIP Co de Phone Number [address] [place] [address] * (ABNORMAL) Ferritin (05/11/2021 9:59 AM CDT) Ferritin 12(L) 15 - 150 ng/mL [facility] GARCIA Comment:Testing performed by : [address] [address] Blood 05/11/2021 9:59 AM CDT 05/11/2021 12:47 PM CDT us Bruce Olea MD LAB BLOOD ORDERABLES Final Res ult Performing Organization Address [facility] Co de Phone Number [address] [place] [place] [address] * Iron profile w/ IBC (05/11/2021 9:59 AM CDT) Iron 117 35 - 145 mcg/dL [facility] G[facility]IA Comment:Testing performed by : [address] [address] TIBC 317 250 - 400 mcg/dL [facility] GARCIA Comment:Testing performed by : [address] [address] Transferrin saturation 37 20 - 50 % [facility] GARCIA Comment:Testing performed by : [address] [address] Blood 05/11/2021 9:59 AM CDT 05/11/2021 12:47 PM CDT Bruce Olea MD LAB BLOOD ORDERABLES Final Res ult Performing Organization Address City/[facility] Co de Phone Number [place] [address] [place] [address] * (ABNORMAL) Vitamin B12 (05/11/2021 9:59 AM CDT) Vitamin B12 1,267(H) 230 - 1,250 pg/mL [facility] Comment:Testing performed by : [facility], [address] [place] [address], [place]., [address] Blood 05/11/2021 9:59 AM CDT 05/11/2021 12:47 PM CDT us Bruce Olea MD LAB BLOOD ORDERABLES Final Res ult Performing Organization Address [facility] de Phone Number [place] [address] [facility] [place] [address] documented in this encounter Visit Diagnoses Diagnosis Iron deficiency anemia due to chronic blood loss Iron deficiency anemia secondary to blood loss (chronic) DVT (deep venous thrombosis) (CMS/HCC) (HCC) Acute venous embolism and thrombosis of unspecified deep vessels of lower extremity documented in this encounter Orders Appointment Requests Count Last Ordered Date Fi rst Ordered Date ONCBCN LAB APPOINTMENT 1 05/11/2021 documented in this encounter Care Teams Facility Mechanic Relationship Specialty Start Date End Date Starr Bran PA [address] [place] [address] PCP - General Internal Medicine 12/30/18 Bruce Olea MD [address] [place] [address] Medical Oncologist/Tester Wafer Substrate Medical Oncology 02/17/21 09/25/21 Bibiana Schuler MD [address] [facility] [address] [place] [address] Consulting Physician Gastroenterology 05/11/21 documented as of this encounter
--- OUTSIDE RECORDS SUMMARY | 2024-07-18 20:34 | XMS_ITS | Encounter Summary ---
Author Organization [facility] Address [address] [facility] [address] [place] [address] Phone Care Team Providers Care Furnace Maintenance Name Role Phone Starr Bran Primary Care Provider [phone] Bruce Olea MD Unavailable [phone] Reason for Visit * Episode Based Medications (Routine) - Closed Specialty Diagnoses / Procedures Referred By Hung t Referred To Contact Oncology Diagnoses Vitamin D deficiency Iron deficiency anemia due to chronic blood loss Procedures DC IRON SUCROSE INJECTION Bruce Olea MD [address] [place] [address] Phone: tel: fax: [facility] [address] [place] [address] [address] [place] [address] Phone: tel: fax: Referral ID Status Reason Start Date Expiration Date Visits Re quested Visits Authorized [id number] Closed 02/16/2021 03/18/2022 1 15 Encounter Details Date Type Department Care Team (Late st Contact Info) Description 02/22/2021 11:00 AM CDT Infusion [facility] [address] [place] [address] [address] [place] [address] Iron deficiency anemia due to chronic [...] file 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 Gender Identity Female 02/02/2021 7:25 AM CDT Sexual Orientation Straight 02/02/2021 7: 25 AM CDT documented as of this encounter Last Filed Vital Signs Vital Sign Reading Time Taken Comments Blood Pressure 125/83 02/22/2021 1:00 PM CDT Pulse 79 02/22/2021 1:00 PM CDT Temperature 36.6 ??C (97.8 ??F) 02/22/2021 10:53 AM C DT Respiratory Rate 18 02/22/2021 1:00 PM CDT Oxygen Saturation 100% 02/22/2021 1:00 PM CDT Inhaled Oxygen Concentration - - Weight 89.6 kg (197 lb 9.6 oz) 02/22/2021 10:53 AM CDT Height - - Body Mass Index 35 02/15/2021 7:58 AM CDT documented in this encounter Nursing Notes * Sunni Smart RN - 02/22/2021 11:00 AM CDT Oncology Nursing Note [facility] Viktoriya Bell is a 56 y.o. female who presents for treatment 1 of Venofer. Pre-treatment Nursing Assessment Nursing Assessment Appetite:: Poor Diarrhea:: No Constipation:: No Existing Patients: Any falls since your last visit? : No New Patients: Any falls since your last visit? : N/A Fatigue:: Occassional Mouth Sores:: No Nausea/Vomiting:: No Pain:: No Peripheral Neuropathy: : No Pt states has potential to be ? : No Shortness of Breath?: Yes (has PE being tx with Eliquis) Lungs auscultated PRN:: No Pt is on oxygen? : No Respiratory Effort Characteristics: Dyspnea exertion Skin Condition/Temp: Warm, Dry Oral Mucosa Grade: Normal (0) Swelling:: Yes (Has blood clot being tx with Eliquis) Swelling location:: RLE BP: 125/83 Temp: 36.6 ??C (97.8 ??F) Temp src: Oral Pulse: 79 Resp: 18 SpO2: 100 % Weight: 89.6 kg (197 lb 9.6 oz) Pain Score: 0 - No pain Treatment Pre blood return: Brisk Viktoriya R Bell tolerated treatment well. Post blood return: Brisk IV access post infusion: NS Patient Education Treatment Education: Information/teaching given to patient including Adverse reaction Response: Verbalizes understanding Discharge Plan Discharge instructions [...] 650 mg 650 mg, oral, Once, On Sat02/22/21 at 1130, For 1 dose, Indications: Pre-medIndications:Pre-med Given 02/22/2021 11:01 AM CDT 650 mg diphenhydrAMINE (BENADRYL) tab/cap 25 mg 25 mg, oral, Once as needed, pre-medication, Starting on Sat02/22/21 at 1058, Indications: Prophylaxis, MedicalIndications:Prophyla xis, Medical Given 02/22/2021 11:01 AM CDT 25 mg iron sucrose (VENOFER) 300 mg in sodium chloride 0.9% 250 mL IVPB 300 mg, intravenous, at 176.7 mL/hr, Administer over 90 Minutes, Once, On Sat02/22/21 at 1145, For 1 doseIndications:Iron deficiency anemia due to chronic blood loss,Vitamin D deficiency New Bag 02/22/2021 11:27 AM CDT 300 mg 176.7 mL/hr documented in this encounter Orders Nursing Count Last Ordered Date First Orde red Date ONCBCN NURSING COMMUNICATION 5 1 02/22/2021 VITAL SIGNS 1 02/22/2021 Appointment Requests Count Last Ordered Date Fi rst Ordered Date INFUSION APPT REQUEST 240 MIN 1 02/22/2021 documented in this encounter Care Teams Furnace Maintenance Relationship Specialty Start Date End Date Starr Bran PA [address] [place] [address] PCP - General Internal Medicine 12/30/18 Bruce Olea MD [address] [place] [address] Medical Oncologist/[facility] Cutter Medical Oncology 02/17/21 09/25/21 documented as of this encounter
--- OUTSIDE RECORDS SUMMARY | 2024-07-18 20:34 | XMS_ITS | Encounter Summary ---
Author Organization [facility] Address [address] [facility] [address] [place] [address] Care Team Providers Care Wash Test Checker Name Role Phone Starr Bran Primary Care Provider [phone] rBuce Olea MD Unavailable [phone] Reason for Visit * Reason Comments Follow-up B12 Injection Encounter Details Date Type Department Care Team (Late st Contact Info) Description 04/12/2021 8:30 AM CDT Office Visit [facility] Family Medicine [address] [place] [address] Starr Bran PA [address] [place] [address] Moderate episode of recurrent major depressive disorder (HCC) (Primary Dx); Low vitamin B12 level; Iron deficiency anemia due to chronic blood loss; Other fatigue; Essential hypertension; Bilateral pulmonary embolism (CMS/HCC) (HCC); Obesity (BMI 30-39.9); BMI 35.0-35.9,adult Social History [...] on file 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 Gender Identity Female 02/02/2021 7:25 AM CDT Sexual Orientation Straight 02/02/2021 7: 25 AM CDT documented as of this encounter Last Filed Vital Signs Vital Sign Reading Time Taken Comments Blood Pressure 120/80 04/12/2021 8:43 AM CDT Pulse 80 04/12/2021 8:43 AM CDT Temperature 37.1 ??C (98.7 ??F) 04/12/2021 8:43 AM CD T Respiratory Rate - - Oxygen Saturation 99% 04/12/2021 8:43 AM CDT Inhaled Oxygen Concentration - - Weight 89.7 kg (197 lb 11.2 oz) 04/12/2021 8:43 AM CDT Height 160 cm (5' 3 ) 04/12/2021 8:43 AM CDT Body Mass Index 35.02 04/12/2021 8:43 AM CDT documented in this encounter Ordered Prescriptions Prescription Sig Dispense Quantity Refills Last Filled Start Date End Date venlafaxine XR (EFFEXOR-XR) 37.5 mg 24 hr capsule Take 1 capsule (37.5 mg total) by mouth daily 30 capsule 04/12/2021 documented in this encounter Progress Notes * Starr Bran PA - 04/12/2021 8:30 AM CDT Images from the original note were not included. Subjective/Objective Patient ID: Viktoriya Bell is a 56 y.o. female. Chief Complaint Follow-up and B12 Injection HPI Patient presents to followup chronic concerns and get her B12. Feeling off, down. Unsure if due to her chronic medical concerns or just lots going on in life. Not sleeping great. Worried a lot, which has been present since she was young. Willing to consider medication. Review of Systems Constitutional: Negative for fever. HENT: Negative for congestion. Respiratory: Negative for shortness of breath. Cardiovascular: Negative for chest pain. Gastrointestinal: Negative for constipation and diarrhea. Vitals: 04/12/21 0843 BP: 120/80 BP Location: Left arm Patient Position: Sitting Pulse: 80 Temp: 37.1 ??C (98.7 ??F) TempSrc: Oral SpO2: 99% Weight: 89.7 kg (197 lb 11.2 oz) Height: 160 cm (5' [...] disorder (HCC) (F33.1) (Primary) Assessment & Plan: Discussed depression symptoms at length. She also has some underlying anxiety that has been presentfor a very long time. Reviewed risks benefits alternatives side effects and proper use of availablemedications. Start Effexor 37.5 mg taking 1 tablet daily will reassess in 3-4 weeks and continue totitrate up to symptoms are better controlled. She currently denies any suicidal or homicidal thoughts. If this occurs she is to contact the office immediately for further assistance. She may also benefit from counseling. Low vitamin B12 level (E53.8) Assessment & Plan: Continue B12 injections q 2weeks Orders: - Vitamin B12; Future Iron deficiency anemia due to chronic blood loss (D50.0) Assessment & Plan: Continue supplement and close monitoring Orders: - CBC with auto differential; Future - Ferritin; Future - cyanocobalamin (Vitamin B-12) injection 1,000 mcg; Inject 1 mL (1,000 mcg total) into the muscle as instructed every 30 (thirty) days Other fatigue (R53.83) - Comprehensive metabolic panel; Future - TSH; Future Essential hypertension (I10) Assessment & Plan: Bp is stable/in acceptable range for any co-morbidities. Encouraged to limit sodium intake and exercise for weight control. Continue lisinopril Bilateral pulmonary embolism (CMS/HCC) (HCC) (I26.99) Assessment & Plan: Continue eliquis. Tolerating well. Obesity (BMI 30-39.9) (E66.9) Assessment & Plan: [...] provided. Other orders - venlafaxine XR (EFFEXOR-XR) 37.5 mg 24 hr capsule; Take 1 capsule (37.5 mg total) by mouth daily Starr Bran PA-C documented in this encounter Miscellaneous Notes * Assessment & Plan Note - Starr Bran PA - 04/23/2021 2:36 PM CDT Associated Problem(s): Moderate episode of recurrent major depressive disorder (HCC) Discussed depression symptoms at length. She also has some underlying anxiety that has been presentfor a very long time. Reviewed risks benefits alternatives side effects and proper use of availablemedications. Start Effexor 37.5 mg taking 1 tablet daily will reassess in 3-4 weeks and continue totitrate up to symptoms are better controlled. She currently denies any suicidal or homicidal thoughts. If this occurs she is to contact the office immediately for further assistance. She may also benefit from counseling. * Assessment & Plan Note - Starr Bran PA - 04/23/2021 2:36 PM CDT Associated Problem(s): Iron deficiency anemia due to chronic blood loss Continue supplement and close monitoring * Assessment & Plan Note - Starr Bran PA - 04/23/2021 2:35 PM CDT Associated Problem(s): Low vitamin B12 level Continue B12 injections q 2weeks * Assessment & Plan Note - Starr Bran PA - 04/23/2021 2:35 PM CDT Associated Problem(s): History of pulmonary embolus (PE) Continue eliquis. Tolerating well. * Assessment & Plan Note - Starr Bran PA - 04/23/2021 2:35 PM CDT Associated Problem(s): Essential hypertension Bp is stable/in acceptable range for any co-morbidities. Encouraged to limit sodium intake and exercise for weight control. Continue lisinopril * Assessment & Plan Note - Flaco Morales MA - 04/12/2021 8:45 AM CDT Associated Problem(s): BMI 35.0-35.9,adult (Resolved 05/17/2021) Obesity is unchanged. Discussed the patient's BMI. The BMI is above average. BMI management plan is completed. BMI Follow-up includes: nutrition counseling, exercise counseling and education provided. * Assessment & Plan Note - Flaco Morales MA - 04/12/2021 8:45 AM CDT Associated Problem(s): Obesity (BMI 30-39.9) (Resolved 05/17/2021) Obesity is unchanged. Discussed the patient's BMI. The BMI is above average. BMI management plan is completed. BMI Follow-up includes: nutrition counseling, exercise counseling and education provided. documented in this encounter Plan of Treatment Not on file documented as of this encounter Procedures Procedure Name Priority Date/Time Associated Diagnosis Comments CBC WITH AUTO DIFFERENTIAL Routine 04/24/2021 8:35 AM CDT Iron deficiency anemia due to chronic blood loss TSH Routine 04/24/2021 8:35 AM CDT Other fatigue FERRITIN Routine 04/24/2021 8:35 AM CDT Iron deficiency anemia due to chronic blood loss VITAMIN B12 Routine 04/24/2021 8:35 AM CDT Low vitamin B12 level COMPREHENSIVE METABOLIC PANEL Routine 04/24/2021 8:35 AM CDT Other fatigue documented in this encounter Results * (ABNORMAL) Ferritin (04/24/2021 8:35 AM CDT) Ferritin 9(L) 15 - 150 ng/mL [facility] - 01 Blood specimen (specimen) 04/24/2021 8:35 AM CDT 04/24/2021 Narrative [facility] - 04/25/2021 9:36 AM CDT Performed at: ??01 - [facility] [address] ??[id number] Engineer Soils: Parveen Lofton PhD, Phone: ??[phone] us Starr SALVADOR LAB BLOOD ORDERABLES Final Result [facility] - 01 * Vitamin B12 (04/24/2021 8:35 AM CDT) Vitamin B12 375 232 - 1,245 pg/mL [facility] - 01 Blood specimen (specimen) 04/24/2021 8:35 AM CDT 04/24/2021 Narrative [facility] - 04/25/2021 9:36 AM CDT Performed at: ??01 - [facility] ??[id number] Engineer Soils: Parveen Lofton PhD, Phone: ??[phone] Starr SALVADOR LAB BLOOD ORDERABLES Final Result Performing Organization Address [facility] de Phone Number [facility] - * TSH (04/24/2021 8:35 AM CDT) Pathologist [facility] TSH 1.620 0.450 - 4.500 uIU/mL [facility] - 01 Blood specimen (specimen) 04/24/2021 8:35 AM CDT 04/24/2021 Narrative [facility] - 04/25/2021 9:36 AM CDT Performed at: ??[address] ??[id number] Engineer Soils: Parveen Lofton PhD, Phone: ??[phone] Starr SALVADOR LAB BLOOD ORDERABLES Final Result Performing Organization Address [facility] de Phone Number [facility] - * (ABNORMAL) Comprehensive metabolic panel (04/24/2021 8:35 AM CDT) Glucose 95 65 - 99 mg/dL [facility] - 01 BUN 13 6 - 24 mg/dL [facility] - 01 Creatinine, Serum 0.60 0.57 - 1.00 mg/dL [facility] - 01 eGFR If NonAfricn Am 102 >59 mL/min/1.7 3 [facility] - 01 eGFR If Africn Am 117 >59 mL/min/1.7 3 [facility] - 01 Comment: [facility] currently reports eGFR in compliance with the current ??recommendations of the National Kidney Foundation. [facility] will ??update reporting as new guidelines are published from the NKF-ASN ??Task force. BUN/creat ratio 22 9 - 23 [facility] - 01 Sodium 143 134 - 144 mmol/L [facility] - 01 Potassium, sr 4.1 3.5 - 5.2 mmol/L [facility] - 01 Chloride 109(H) 96 - 106 mmol/L [facility] - 01 CO2 19(L) 20 - 29 mmol/L [facility] - 01 Calcium 9.3 8.7 - 10.2 mg/dL [facility] - 01 Protein, sr 6.2 6.0 - 8.5 g/dL [facility] - 01 Albumin 4.2 3.8 - 4.9 g/dL [facility] - 01 Globulin, Total 2.0 1.5 - 4.5 g/dL [facility] - 01 A/G Ratio 2.1 1.2 - 2.2 [facility] - 01 Bilirubin, Total 0.3 0.0 - 1.2 mg/dL [facility] - 01 Alk phos 67 44 - 121 IU/L [facility] - 01 Comment:Please note refere nce interval change AST 13 0 - 40 IU/L [facility] - 01 ALT 14 0 - 32 IU/L [facility] - 01 Blood specimen (specimen) 04/24/2021 8:35 AM CDT 04/24/2021 Narrative [facility] - 04/25/2021 9:36 AM CDT Performed at: ??01 - [facility] ??[id number] Engineer Soils: Parveen Lofton PhD, Phone: ??[phone] Starr SALVADOR LAB BLOOD ORDERABLES Final Result [facility] - 01 * (ABNORMAL) CBC with auto differential (04/24/2021 8:35 AM CDT) WBC 5.1 3.4 - 10.8 x10E3/uL [facility] - 01 RBC 3.38(L) 3.77 - 5.28 x10E6/uL [facility] - 01 Hgb 9.4(L) 11.1 - 15.9 g/dL [facility] - 01 Hct 30.5(L) 34.0 - 46.6 % [facility] - 01 MCV 90 79 - 97 fL [facility] - 01 MCH 27.8 26.6 - 33.0 pg [facility] - 01 MCHC 30.8(L) 31.5 - 35.7 g/dL [facility] - 01 Rdw 13.5 11.7 - 15.4 % [facility] - 01 Platelets 275 150 - 450 x10E3/uL [facility] - 01 Neutrophils pct 67 Not Estab. % [facility] - 01 Lymphs pct 23 Not Estab. % [facility] - 01 Monocytes pct 7 Not Estab. % [facility] - 01 Eosinophils pct 2 Not Estab. % [facility] - 01 Basophil pct 1 Not Estab. % [facility] - 01 Neutrophil abs 3.4 1.4 - 7.0 x10E3/uL [facility] - 01 Lymphs (Absolute) 1.1 0.7 - 3.1 x10E3/uL [facility] - 01 Monocyte abs 0.4 0.1 - 0.9 x10E3/uL [facility] - 01 Eosinophils, abs 0.1 0.0 - 0.4 x10E3/uL [facility] - 01 Basophils, abs 0.0 0.0 - 0.2 x10E3/uL [facility] - 01 Immature Granulocytes 0 Not Estab. % [facility] - 01 Immature Grans (Abs) 0.0 0.0 - 0.1 x10E3/uL [facility] - 01 Blood specimen (specimen) 04/24/2021 8:35 AM CDT 04/24/2021 Narrative [facility] - 04/25/2021 9:36 AM CDT Performed at: ?? - [facility] [address] ??[id number] Engineer Soils: Parveen Lofton PhD, Phone: ??[phone] Starr SALVADOR LAB BLOOD ORDERABLES Final Result [facility] - 01 documented in this encounter Visit Diagnoses Diagnosis Moderate episode of recurrent major depressive disorder (HCC)- Primary Low vitamin B12 level Iron deficiency anemia due to chronic blood loss Iron deficiency anemia secondary to blood loss (chronic) Other fatigue Essential hypertension Unspecified essential hypertension Bilateral pulmonary embolism (CMS/HCC) (HCC) Other pulmonary embolism and infarction Obesity (BMI 30-39.9) BMI 35.0-35.9,adult documented in this encounter Administered Medications Inactive Administered Medications - up to 3 most recent administrations Medication Order MAR Action Action Date Dose Rate Site cyanocobalamin (Vitamin B-12) injection 1,000 mcg 1,000 mcg, intramuscular, Every 30 days, First dose on Sat04/12/21 at 1015Indications:Iron deficiency anemia due to chronic blood loss Given 04/12/2021 9:32 AM CDT 1,000 mcg Left Deltoid documented in this encounter Care Teams Wash Test Checker Relationship Specialty Start Date End Date Starr Bran PA [address] [place] [address] PCP - General Internal Medicine 12/30/18 Bruce Olea MD [address] [place] [address] Medical Oncologist/Territory Sales Manager Medical Oncology 02/17/21 09/25/21 documented as of this encounter
--- OUTSIDE RECORDS SUMMARY | 2024-07-18 20:34 | XMS_ITS | Encounter Summary ---
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 Gender Identity Female 02/02/2021 7:25 AM CDT Sexual Orientation Straight 02/02/2021 7: 25 AM CDT documented as of this encounter Plan of Treatment Not on file documented as of this encounter Procedures Procedure Name Priority Date/Time Associated Diagnosis Comments IRON PROFILE W/ IBC Routine 02/09/2021 9 :59 AM CDT Iron deficiency anemia due to chronic blood loss DVT (deep venous thrombosis) (CMS/HCC) (HCC) FERRITIN Routine 02/09/2021 9:59 AM CDT Iron deficiency anemia due to chronic blood loss DVT (deep venous thrombosis) (CMS/HCC) (HCC) DIFFERENTIAL AUTO Routine 02/09/2021 8:2 9 AM CDT Iron deficiency anemia due to chronic blood loss CBC WITH AUTO DIFFERENTIAL Routine 02/09/2021 8:29 AM CDT Iron deficiency anemia due to chronic blood loss VITAMIN B12 Routine 02/09/2021 8:29 AM CDT Low vitamin B12 level documented in this encounter Results * (ABNORMAL) Ferritin (02/09/2021 9:59 AM CDT) Ferritin 11(L) 15 - 150 ng/mL [facility] Comment:Testing performed by : [address] [address] Blood specimen (specimen) 02/09/2021 9:59 AM CDT 02/09/2021 1:14 PM CDT us Bruce Olea MD LAB BLOOD ORDERABLES Final Res ult [facility] [address] [facility] [place] [address] * (ABNORMAL) Iron profile w/ IBC (02/09/2021 9:59 AM CDT) Iron 14(L) 35 - 145 mcg/dL [facility] Comment:Testing performed by : [address] [address] TIBC 349 250 - 400 mcg/dL [facility] Comment:Testing performed by : [address] [address] Transferrin saturation 4(L) 20 - 50 % [facility] Comment:Testing performed by : [address] [address] Blood specimen (specimen) 02/09/2021 9:59 AM CDT 02/09/2021 1:14 PM CDT us Bruce Olea MD LAB BLOOD ORDERABLES Final Res ult [facility] [address] [facility] [place] [address] * Differential, auto (02/09/2021 8:29 AM CDT) Neutrophil abs 3.4 1.7 - 6.5 K/cumm [facility] Comment:Testing performed by : [address] [address] Lymphocyte abs 1.1 0.8 - 3.3 K/cumm [facility] Comment:Testing performed by : [address] [address] Monocyte abs 0.3 0.2 - 0.8 K/cumm [facility] Comment:Testing performed by : [address] [address] Eosinophil abs 0.1 0.0 - 0.5 K/cumm [facility] Comment:Testing performed by : [address] [address] Neutrophil pct 68.3 % [facility] Comment: Interpretive Data Percent cell count reference ranges are not reported, since discordance with absolute values may lead to misinterpretation of CBC data. Current Interpretive Data was last revised on 2017. Testing performed by: [address] [address] Imm gran pct 0.4 % [facility] Comment: Interpretive Data Percent cell count reference ranges are not reported, since discordance with absolute values may lead to misinterpretation of CBC data. Current Interpretive Data was last revised on 2017. Testing performed by: [address] [address] Lymphocyte pct 22.5 % [facility] Comment: Interpretive Data Percent cell count reference ranges are not reported, since discordance with absolute values may lead to misinterpretation of CBC data. Current Interpretive Data was last revised on 2017. Testing performed by: [address] [address] Monocyte pct 6.0 % [facility] Comment: Interpretive Data Percent cell count reference ranges are not reported, since discordance with absolute values may lead to misinterpretation of CBC data. Current Interpretive Data was last revised on 2017. Testing performed by: [address] [address] Eosinophil pct 2.0 % [facility] Comment: Interpretive Data Percent cell count reference ranges are not reported, since discordance with absolute values may lead to misinterpretation of CBC data. Current Interpretive Data was last revised on 2017. Testing performed by: [address] [address] Basophil pct 0.8 % [facility] Comment: Interpretive Data Percent cell count reference ranges are not reported, since discordance with absolute values may lead to misinterpretation of CBC data. Current Interpretive Data was last revised on 2017. Testing performed by: [address] [address] Blood specimen (specimen) 02/09/2021 8:29 AM CDT 02/09/2021 8:43 AM CDT us Bruce Olea MD LAB BLOOD ORDERABLES Final Res ult [facility] [address] [facility] [place], [place] [id number] * Vitamin B12 (02/09/2021 8:29 AM CDT) Vitamin B12 230 230 - 1,250 pg/mL [facility] Comment:Testing performed by : [address] [address] Blood specimen (specimen) 02/09/2021 8:29 AM CDT 02/09/2021 10:15 AM CDT us tSarr SALVADOR LAB BLOOD ORDERABLES Final Result [facility] [address] [facility] [place], [place] [id number] * (ABNORMAL) CBC with auto differential (02/09/2021 8:29 AM CDT) [facility] WBC 5.0 3.8 - 9.9 K/cumm [facility] Comment:Testing performed by : [address] [address] Hgb 9.8(L) 11.9 - 15.5 g/dL [facility] Comment:Testing performed by : [address] [address] Hct 31.8(L) 35.6 - 45.5 % [facility] Comment:Testing performed by : [address] [address] Plt 293 150 - 400 K/cumm [facility] Comment:Testing performed by : [address] [address] MPV 10.1 9.1 - 12.3 fL [facility] Comment:Testing performed by : [address] [address] RBC 3.57(L) 3.90 - 5.20 M/cumm [facility] Comment:Testing performed by : [address] [address] MCV 89.1 81.3 - 96.4 fL [facility] Comment:Testing performed by : [address] [address] MCH 27.5 27.1 - 33.3 pg [facility] Comment:Testing performed by : [address] [address] MCHC 30.8(L) 32.3 - 35.7 g/dL [facility] Comment:Testing performed by : [address], [address] RDW CV 14.6 11.1 - 14.9 % [facility] Comment:Testing performed by : [address], [place]., [address] RDW SD 46.3 35.7 - 48.1 fL [facility] Comment:Testing performed by : [address] [address] Blood specimen (specimen) 02/09/2021 8:29 AM CDT 02/09/2021 8:43 AM CDT us Bruce Olea MD LAB BLOOD ORDERABLES Final Res ult [facility] [address] [facility] [place] [address] documented in this encounter Visit Diagnoses Diagnosis Iron deficiency anemia due to chronic blood loss Iron deficiency anemia secondary to blood loss (chronic) DVT (deep venous thrombosis) (CMS/HCC) (HCC) Acute venous embolism and thrombosis of unspecified deep vessels of lower extremity Low vitamin B12 level documented in this encounter Orders Appointment Requests Count Last Ordered Date Fi rst Ordered Date ONCBCN LAB APPOINTMENT 1 02/09/2021 documented in this encounter Care Teams Supervisor Hot Dip Tinning Relationship Specialty Start Date End Date Starr Bran PA [address] [address] PCP - General Internal Medicine 12/30/18 documented as of this encounter
--- OUTSIDE RECORDS SUMMARY | 2024-07-18 20:34 | XMS_ITS | Encounter Summary ---
Author Organization [facility] Address [address] [place] [address] Phone Care Team Providers Care General Dentist/Owner Name Role Phone Starr Bran Primary Care Provider [phone] Bruce Olea MD Unavailable [phone] Encounter Details Date Type Department Care Team (Late st Contact Info) Description 02/16/2021 Orders Only [facility] Physicians [facility] Oncology [facility] [address] [place] [phone] Mary Nichols, RN Social History Tobacco [...] on file 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 Gender Identity Female 02/02/2021 7:25 AM CDT Sexual Orientation Straight 02/02/2021 7: 25 AM CDT documented as of this encounter Plan of Treatment Not on file documented as of this encounter Visit Diagnoses Not on filedocumented in this encounter Care Teams General Dentist/Owner Relationship Specialty Start Date End Date Starr Bran PA [address] [place] [address] PCP - General Internal Medicine 12/30/18 Bruce Olea MD [address] [place], [place] [id number] Medical Oncologist/Sales Department Supervisor Medical Oncology 02/17/21 09/25/21 documented as of this encounter
--- OUTSIDE RECORDS SUMMARY | 2024-07-18 20:34 | XMS_ITS | Encounter Summary ---
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 She needs IV iron. Patient is agreeable to this. Injectafer plan built, appt requests placed. I will have the schedulers call to schedule. She VU. documented in this encounter Plan of Treatment Not on file documented as of this encounter Visit Diagnoses Diagnosis Iron deficiency anemia due to chronic blood loss- Primary Iron deficiency anemia secondary to blood loss (chronic) documented in this encounter Orders Appointment Requests Count Last Ordered Date Fi rst Ordered Date INFUSION APPT REQUEST 120 MIN 1 03/01/2021 INFUSION APPT REQUEST 240 MIN 1 02/22/2021 documented in this encounter Care Teams Towel Inspector Relationship Specialty Start Date End Date Starr Bran PA [address] [address] PCP - General Internal Medicine 12/30/18 documented as of this encounter
--- OUTSIDE RECORDS SUMMARY | 2024-07-18 20:34 | XMS_ITS | Encounter Summary ---
Author Organization [facility] Address [address] [facility] [address] [place] [address] Care Team Providers Care Talent Recruiter Name Role Phone Starr Bran Primary Care Provider [phone]- [phone] Bruce Olea MD Unavailable [phone] Reason for Visit * Reason Comments B12 Injection Encounter Details Date Type Department Care Team (Latest Contact Info) Description 04/26/2021 8:30 AM CDT Clinical Support [facility] Family Medicine [address] [facility] [address] [place] [address] Low vitamin B12 level (Primary [...] on file 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 [...] intramuscular, Every 30 days, First dose on Sat04/26/21 at 0900Indications:Low vitamin B12 level Given 04/26/2021 8:27 AM CDT 1,000 mcg Left Deltoid documented in this encounter Care Teams Talent Recruiter Relationship Specialty Start Date End Date Starr Bran PA [address] [place] [address] PCP - General Internal Medicine 12/30/18 Bruce Olea MD [address] [place] [address] Medical Oncologist/Fine Sander Medical Oncology 02/17/21 09/25/21 documented as of this encounter
--- OUTSIDE RECORDS SUMMARY | 2024-07-18 20:34 | XMS_ITS | Encounter Summary ---
Author Organization [facility] Address [address] [facility] [address] [place] [address] Phone Care Team Providers Care Staff Weapons Officer Name Role Phone Starr Bran Primary Care Provider [phone] Bruce Olea MD Unavailable [phone] Bibiana Schuler MD Unavailable [phone] Reason for Visit * Reason Comments OP Infusion * Episode Based Medications (Routine) - Closed Specialty Diagnoses / Procedures Referred By Contlaura t Referred To Contact Oncology Diagnoses Vitamin D deficiency Iron deficiency anemia due to chronic blood loss Procedures HI IRON SUCROSE INJECTION Bruce Olea MD [address] [place] [address] Phone: tel: fax: [facility] Oncology [address] [place] [address] [address] [place] [address] Phone: tel: fax: Referral ID Status Reason Start Date Expiration Date Visits Re quested Visits Authorized [id number] Closed 02/16/2021 03/18/2022 1 15 Encounter Details Date Type Department Care Team (Late st Contact Info) Description 05/22/2021 8:15 AM CDT Infusion [facility] Oncology [address] [place] [address] [address] [place] [address] Iron deficiency anemia due to [...] on file 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 Gender Identity Female 02/02/2021 7:25 AM CDT Sexual Orientation Straight 02/02/2021 7: 25 AM CDT documented as of this encounter Last Filed Vital Signs Vital Sign Reading Time Taken Comments Blood Pressure 163/74 05/22/2021 8:16 AM CDT Pulse 79 05/22/2021 8:16 AM CDT Temperature 36.9 ??C (98.5 ??F) 05/22/2021 8:16 AM CD T Respiratory Rate 16 05/22/2021 8:16 AM CDT Oxygen Saturation 100% 05/22/2021 8:16 AM CDT Inhaled Oxygen Concentration - - Weight 87.7 kg (193 lb 6.4 oz) 05/22/2021 8:16 A M CDT Height 160 cm (5' 3 ) 05/22/2021 8:16 AM CDT Body Mass Index 34.26 05/22/2021 8:16 AM CDT documented in this encounter Nursing Notes * Kelley Orr, ZACK - 05/22/2021 8:15 AM CDT Oncology Nursing Note [facility] Viktoriya Bell is a 56 y.o. female who presents for Iron Infusion- Venofer Pre-treatment Nursing Assessment Nursing Assessment Appetite:: Good Diarrhea:: No Constipation:: No Existing Patients: Any falls since your last visit? : No Fatigue:: Occassional (Gilman very tired after last infusion. Slept for a few hours after.) Mouth Sores:: No Nausea/Vomiting:: No Pain:: No BP: 163/74 Temp: 36.9 ??C (98.5 ??F) Temp src: Oral Pulse: 79 Resp: 16 SpO2: 100 % Height: 160 cm (5' 3 ) Weight: 87.7 kg (193 lb 6.4 oz) Treatment Tolerated Treatment well. Discharge Plan Discharge instructions given to patient. [...] 650 mg 650 mg, oral, Once, On Sat05/22/21 at 0900, For 1 dose, Indications: Pre-medIndications:Pre-med Given 05/22/2021 8:29 AM CDT 650 mg diphenhydrAMINE (BENADRYL) tab/cap 25 mg 25 mg, oral, Once as needed, pre-medication, Starting on Sat05/22/21 at 0829, Indications: Prophylaxis, MedicalIndications:Prophyla xis, Medical Given 05/22/2021 8:29 AM CDT 25 mg iron sucrose (VENOFER) 300 mg in sodium chloride 0.9% 250 mL IVPB 300 mg, intravenous, at 176.7 mL/hr, Administer over 90 Minutes, Once, On Sat05/22/21 at 0900, For 1 doseIndications:Iron deficiency anemia due to chronic blood loss,Vitamin D deficiency New Bag 05/22/2021 8:42 AM CDT 300 mg 176.7 mL/hr documented in this encounter Orders Nursing Count Last Ordered Date First Orde red Date VITAL SIGNS 1 05/22/2021 Appointment Requests Count Last Ordered Date Fi rst Ordered Date INFUSION APPT REQUEST 180 MIN 1 05/22/2021 documented in this encounter Care Teams Staff Weapons Officer Relationship Specialty Start Date End Date Starr Bran PA [address] [facility] [address] [place] [address] PCP - General Internal Medicine 12/30/18 Bruce Olea MD [address] [facility] [address] [place] [address] Medical Oncologist/Stoneworker Medical Oncology 02/17/21 09/25/21 Bibiana Schuler MD [address] [facility] [address] [place] [address] Consulting Physician Gastroenterology 05/11/21 documented as of this encounter
--- OUTSIDE RECORDS SUMMARY | 2024-07-18 20:34 | XMS_ITS | Encounter Summary ---
Author Organization [facility] Address [address] 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 Gender Identity Female 02/02/2021 7:25 AM CDT Sexual Orientation Straight 02/02/2021 7: 25 AM CDT documented as of this encounter Plan of Treatment Not on file documented as of this encounter Visit Diagnoses Not on filedocumented in this encounter Care Teams Global Account Manager Relationship Specialty Start Date End Date Starr Bran PA [address] [place] [address] PCP - General Internal Medicine 12/30/18 Bruce Olea MD [address] [facility] [address] [place] [address] Medical Oncologist/Switching Operator Medical Oncology 02/17/21 09/25/21 Bibiana Schuler MD [address] [facility] [address] [place] [address] Consulting Physician Gastroenterology 05/11/21 documented as of this encounter
--- OUTSIDE RECORDS SUMMARY | 2024-07-18 20:34 | XMS_ITS | Encounter Summary ---
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 Gender Identity Female 02/02/2021 7:25 AM CDT Sexual Orientation Straight 02/02/2021 7: 25 AM CDT documented as of this encounter Progress Notes * Louise Caldwell LPN - 03/01/2021 8:00 AM CDT Patient here for b12 [...] 1,000 mcg 1,000 mcg, intramuscular, Once, On Sat03/01/21 at 0830, For 1 doseIndications:Low vitamin B12 level Given 03/01/2021 7:50 AM CDT 1,000 mcg Left Deltoid documented in this encounter Care Teams Hourly Manager Relationship Specialty Start Date End Date Starr Bran PA [address] [place] [address] PCP - General Internal Medicine 12/30/18 Bruce Olea MD [address] [place] [address] Medical Oncologist/Environmental Services Associate Medical Oncology 02/17/21 09/25/21 documented as of this encounter
--- OUTSIDE RECORDS SUMMARY | 2024-07-18 20:34 | XMS_ITS | Encounter Summary ---
Author Organization [facility] Address [address] [facility] [address] [place] [address] Care Team Providers Care Inspector Name Role Phone Starr Bran Primary Care Provider [phone] Bruce Olea MD Unavailable [phone] Encounter Details Date Type Department Care Team (Late st Contact Info) Description 02/16/2021 Telephone [facility] Family Medicine [address] [facility] [address] [place] [address] Starr Bran PA [address] [facility] [address] [place] [address] Social History Tobacco Use Types [...] on file 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 Olea's note, she is being scheduled for IV iron infusions. * Telephone Encounter - Louise Caldwell LPN - 02/16/2021 8:[address] Olea's office called back -- they will discuss this with patient. Asked office to update us with determination once they speak to patient. They agreed. * Telephone Encounter - Louise Caldwell LPN - 02/16/2021 8:13 AM CDT Spoke to staff in Dr. Olea's office. Gave all s/s and results to staff. They plan to talk to Dr. Olea's nurse and will call office back with determination of iron infusion. * Telephone Encounter - Starr Bran PA - 02/16/2021 7:30 AM CDT Please call Dr. Olea's office ([facility] in [place]). Her iron results are back. I saw her in the office and she is tired/symptomatic. Would she qualify for iron infusions? I am increasing her B12 injections to every other week. documented in this encounter Plan of Treatment Not on file documented as of this encounter Visit Diagnoses Not on filedocumented in this encounter Care Teams Inspector Relationship Specialty Start Date End Date Starr Bran PA [address] [facility] [address] [facility] [address] [place] [address] PCP - General Internal Medicine 12/30/18 Bruce Olea MD [address] [facility] [address] [place] [address] Medical Oncologist/[place] Medical Oncology 02/17/21 09/25/21 documented as of this encounter
--- OUTSIDE RECORDS SUMMARY | 2024-07-18 20:34 | XMS_ITS | Encounter Summary ---
Author Organization [facility] Address [address] [facility] [address] [place] [address] Phone Care Team Providers Care Fiscal Manager Name Role Phone Starr Bran Primary Care Provider [phone] Bruce Olea MD Unavailable Reason for Visit * Reason Comments OP Infusion * Episode Based Medications (Routine) - Closed Specialty Diagnoses / Procedures Referred By Contac t Referred To Contact Oncology Diagnoses Vitamin D deficiency Iron deficiency anemia due to chronic blood loss Procedures [place] IRON SUCROSE INJECTION Bruce Olea MD [address] [place] [address] Phone: tel: fax: [facility] Physicians [facility] Oncology [address] [place] [address] [place] [address] Phone: tel: fax: Referral ID Status Reason Start Date Expiration Date Visits Re quested Visits Authorized [id number] Closed 02/16/2021 03/18/2022 1 15 Encounter Details Date Type Department Care Team (Late st Contact Info) Description 03/01/2021 1:15 PM CDT Infusion [facility] Oncology [address] [place] [address] Iron deficiency anemia due to chronic [...] on file 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 Gender Identity Female 02/02/2021 7:25 AM CDT Sexual Orientation Straight 02/02/2021 7: 25 AM CDT documented as of this encounter Last Filed Vital Signs Vital Sign Reading Time Taken Comments Blood Pressure 121/82 03/01/2021 1:03 PM CDT Pulse 94 03/01/2021 1:03 PM CDT Temperature 36.8 ??C (98.3 ??F) 03/01/2021 1:03 PM CD T Respiratory Rate 18 03/01/2021 1:03 PM CDT Oxygen Saturation 100% 03/01/2021 1:03 PM CDT Inhaled Oxygen Concentration - - Weight 91.3 kg (201 lb 3.2 oz) 03/01/2021 1:03 P M CDT Height 160 cm (5' 3 ) 03/01/2021 1:03 PM CDT Body Mass Index 35.64 03/01/2021 1:03 PM CDT documented in this encounter Nursing Notes * Shira Rodriguez RN - 03/01/2021 1:15 PM CDT Patient received Treatment 2 of Venofer. Premedicated per order. Vital signs stable. Tolerated infusion well. No complaints. Observed 30 minutes post infusion. documented in this encounter Plan of Treatment [...] 650 mg 650 mg, oral, Once, On Sat03/01/21 at 1415, For 1 dose, Indications: Pre-medIndications:Pre-med Given 03/01/2021 1:42 PM CDT 650 mg diphenhydrAMINE (BENADRYL) tab/cap 25 mg 25 mg, oral, Once as needed, pre-medication, Starting on Sat03/01/21 at 1333, Indications: Prophylaxis, MedicalIndications:Prophyla xis, Medical Given 03/01/2021 1:42 PM CDT 25 mg iron sucrose (VENOFER) 300 mg in sodium chloride 0.9% 250 mL IVPB 300 mg, intravenous, at 176.7 mL/hr, Administer over 90 Minutes, Once, On Sat03/01/21 at 1415, For 1 doseIndications:Iron deficiency anemia due to chronic blood loss,Vitamin D deficiency New Bag 03/01/2021 2:01 PM CDT 300 mg 176.7 mL/hr documented in this encounter Orders Nursing Count Last Ordered Date First Orde red Date VITAL SIGNS 1 03/01/2021 Appointment Requests Count Last Ordered Date Fi rst Ordered Date INFUSION APPT REQUEST 120 MIN 1 03/01/2021 documented in this encounter Care Teams Fiscal Manager Relationship Specialty Start Date End Date Starr Bran PA [address] [place] [address] PCP - General Internal Medicine 12/30/18 Bruce Olea MD [address] [place] [address] Medical Oncologist/Outbound Sales Professional Medical Oncology 02/17/21 09/25/21 documented as of this encounter
--- OUTSIDE RECORDS SUMMARY | 2024-07-18 20:34 | XMS_ITS | Encounter Summary ---
Author Organization [facility] Address [address] 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 [...] intramuscular, Every 30 days, First dose on Sat05/24/21 at 1200Indications:Low vitamin B12 level Given 05/24/2021 11:19 AM CDT 1,000 mcg Left Deltoid documented in this encounter Care Teams Dry Placer Machine Operator Relationship Specialty Start Date End Date Starr Bran PA [address] [place] [address] PCP - General Internal Medicine 12/30/18 Bruce Olea MD [address] [place] [address] Medical Oncologist/Hitting Coach Medical Oncology 02/17/21 09/25/21 Bibiana Schuler MD [address] [place] [address] Consulting Physician Gastroenterology 05/11/21 documented as of this encounter
--- OUTSIDE RECORDS SUMMARY | 2024-07-18 20:35 | XMS_ITS | Encounter Summary ---
Author Organization [facility] Address [address] [facility] [address] [place] [address] Phone Care Team Providers Care Sales Correspondence Clerk Name Role Phone Starr Bran Primary Care Provider [phone]- [phone] Encounter Details Date Type Department Care Team (Late st Contact Info) Description 12/01/2020 10:00 AM CDT Lab [facility] Physicians [facility] Oncology [facility] [address] Iron deficiency anemia due to chronic blood loss; DVT (deep venous thrombosis) ([facility]/HCC) Social History Tobacco Use Types Packs/Day Years Used Date Smoking Tobacco: Never Smokeless Tobacco: Never AUDIT-C Answer Date Recorded Q1: How often do you have a drink containing alc ohol? Never 11/15/2020 Average Number of Drinks Not on file 021 Q3: How often do you have si x or more drinks on one occasion? 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
--- OUTSIDE RECORDS SUMMARY | 2024-07-18 20:35 | XMS_ITS | Encounter Summary ---
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
--- OUTSIDE RECORDS SUMMARY | 2024-07-18 20:35 | XMS_ITS | Encounter Summary ---
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 Gender Identity Female 02/02/2021 7:25 AM CDT Sexual Orientation Straight 02/02/2021 7: 25 AM CDT documented as of this encounter Medications at Time of Discharge multivitamin tablet daily apixaban (ELIQUIS) 5 mg tablet Take 1 tablet (5 mg total) by mouth every 12 (twelve) hours 180 tablet 11/10/2020 02/09/2021 ferrous sulfate 325 mg (65 mg of elemental iron) tablet Take 1 tablet (325 mg total) by mouth 2 (two) times a day 60 tablet 2 10/27/2020 01/31/2021 lisinopriL (PRINIVIL,ZESTRIL ) 10 mg tablet Take 1 tablet (10 mg total) by mouth daily 90 tablet 3 12/14/2020 02/15/2021 documented as of this encounter Plan of Treatment Not on file documented as of this encounter Visit Diagnoses Not on filedocumented in this encounter Care Teams Citrix Engineer Relationship Specialty Start Date End Date Starr Bran PA [address] [facility] [address] [place] [address] PCP - General Internal Medicine 12/30/18 documented as of this encounter
--- OUTSIDE RECORDS SUMMARY | 2024-07-18 20:35 | XMS_ITS | Encounter Summary ---
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
--- OUTSIDE RECORDS SUMMARY | 2024-07-18 20:35 | XMS_ITS | Encounter Summary ---
Author Organization [facility] Address [address] [address] Care Team Providers Care Mother Helper Name Role Phone Starr Bran Primary Care Provider +1- [phone] Reason for Visit * Reason Comments Follow-up B12 Injection Encounter Details Date Type Department Care Team (Late st Contact Info) Description 12/14/2020 10:00 AM CDT Office Visit [facility] Family Medicine [address] [facility] [address] [place] [address] Starr Bran PA [address] [place] [address] Essential hypertension (Primary Dx); Low vitamin B12 level; DVT (deep venous thrombosis) (CMS/HCC); Bilateral pulmonary embolism (CMS/HCC); Vitamin D deficiency; Acute pain of left knee; SOB (shortness of breath) on exertion; Iron deficiency anemia due to chronic blood loss; Other fatigue; BMI 34.0-34.9,adult; Obesity (BMI 30-39.9) Social History [...] on file 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 Gender Identity Female 02/02/2021 7:25 AM CDT Sexual Orientation Straight 02/02/2021 7: 25 AM CDT documented as of this encounter Last Filed Vital Signs Vital Sign Reading Time Taken Comments Blood Pressure 122/80 12/14/2020 10:15 AM CDT Pulse 89 12/14/2020 10:15 AM CDT Temperature 37.2 ??C (98.9 ??F) 12/14/2020 10:15 AM C DT Respiratory Rate - - Oxygen Saturation 97% 12/14/2020 10:15 AM CDT Inhaled Oxygen Concentration - - Weight 89.1 kg (196 lb 6.4 oz) 12/14/2020 10:15 AM CDT Height 160 cm (5' 3 ) 12/14/2020 10:15 AM CDT Body Mass Index 34.79 12/14/2020 10:15 AM CDT documented in this encounter Ordered Prescriptions Prescription Sig Dispense Quantity Refills Last Filled Start Date End Date lisinopriL (PRINIVIL,ZESTRIL) 10 mg tablet Take 1 tablet (10 mg total) by mouth daily 90 tablet 3 12/14/2020 02/15/2021 documented in this encounter Progress Notes * Starr Bran PA - 12/14/2020 10:00 AM CDT Images from the original note were not included. Subjective/Objective Patient ID: Viktoriya Bell is a 55 y.o. female. Chief Complaint Follow-up and B12 Injection HPI Patient presents to followup chronic concerns. Tolerating the Eliquis well for her (B) PE and riht DVT. No active bleeding. Still fatigued and at times SOB Right LE is still swollen. She inquires about repeat of CT at three months as remembers being told in ER to have it done. Dr. Olea/LETY -- notes reviewed in the chart. B12 is improving with injections. Today is the 4th weekly injection and will then progress to monthly. EGD showed a gastritis. Cologuard and colonoscopy were negative by Dr. Schuler. Capsule endoscopy done by Dr. Schuler was also negative. Parietal cell antibody was very high at 49.9 so on B12 injections and seeing a nice improvement. He completed the clotting workup and Lupus anticoagulant and prothrombin gene and prothrombin gene were ordered and were negative. 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 A uterine fibroid was seen on CT. She stopped the Depo Provera. She was told to call if has any bleeding. F.u prn PT helped the left knee HTN -- stable with the lisinopril Review of Systems Constitutional: Negative for fever. HENT: Negative for congestion. Respiratory: Negative for shortness of breath. Cardiovascular: Negative for chest pain. Gastrointestinal: Negative for constipation and diarrhea. Vitals: 12/14/20 1015 BP: 122/80 BP Location: Left arm Patient Position: Sitting Pulse: 89 Temp: 37.2 ??C (98.9 ??F) TempSrc: Oral SpO2: 97% Weight: 89.1 kg (196 lb 6.4 oz) Height: 160 cm (5' 3 ) [...] is no abdominal tenderness. Musculoskeletal: Comments: Right lower extremity is still swollen from just above the knee down to the foot. It is pretty consistent with what it has been over the last month. Good pulses Skin: General: Skin is warm and dry. Findings: No rash. Neurological: Mental Status: She is alert and oriented to person, place, and time. Assessment/Plan Diagnoses and all orders for this visit: Essential hypertension (I10) (Primary) Assessment & Plan: Bp is stable/in acceptable range for any co-morbidities. Encouraged to limit sodium intake and exercise for weight control. Continue lisinopril Low vitamin B12 level (E53.8) Assessment & Plan: Continue with monthly B12 IM injections. Will recheck labs in mid to late December to see if she is keeping a steady state of the B12 if dropping significantly may need to decrease the duration between the injections. Orders: - Vitamin B12; Future DVT (deep venous thrombosis) (CMS/HCC) (I82.409) Assessment & Plan: Right leg is still significantly swollen. Pain is minimal. Continue with compression stockings and elevation. Call with any increased symptoms. She is tolerating the Eliquis well. Eliquis was startedin October of 2020 Bilateral pulmonary embolism (CMS/HCC) (I26.99) Assessment & Plan: Tolerating the Eliquis. Will continue to monitor. She is to call with any increased symptoms. Vitamin D deficiency (E55.9) Assessment & Plan: Supplement Orders: - cyanocobalamin (Vitamin B-12) injection 1,000 mcg; Inject 1 mL (1,000 mcg total) into the muscle as instructed once Acute pain of left knee (M25.562) Assessment & Plan: Improving with PT SOB (shortness of breath) on exertion (R06.02) Assessment & Plan: Shortness of breath still persists at times although much improved from the initial onset in October.Will continue to monitor her pulmonary embolisms. She is continue with the Eliquis. If she has increases when she is to follow up immediately. Will consider repeat CT of the chest in February. Iron deficiency anemia due to chronic blood loss (D50.0) Assessment & Plan: Beginning to rebound with iron supplementation. Patient has now stopped the Depo-Provera so she hasany bleeding she is to call her land examiner as I do not want to have this start up to affect the gain that we have had with her hemoglobin. If she has any other signs or symptoms of bleeding she is to call immediately. Will continue to monitor labs with Dr. rocio crabtree. Other fatigue (R53.83) Assessment & Plan: Probably multifactorial. Check labs and followup to re-evaluate BMI 34.0-34.9,adult (Z68.34) Assessment & Plan: Obesity [...] Plan Note - Starr Bran PA - 12/14/2020 2:21 PM CDT Associated Problem(s): Other fatigue Probably multifactorial. Check labs and followup to re-evaluate * Assessment & Plan Note - Starr Bran PA - 12/14/2020 2:20 PM CDT Associated Problem(s): Iron deficiency anemia due to chronic blood loss Beginning to rebound with iron supplementation. Patient has now stopped the Depo-Provera so she hasany bleeding she is to call her land examiner as I do not want to have this start up to affect the gain that we have had with her hemoglobin. If she has any other signs or symptoms of bleeding she is to call immediately. Will continue to monitor labs with Dr. rocio crabtree. * Assessment & Plan Note - Starr Bran PA - 12/14/2020 2:19 PM CDT Associated Problem(s): Low vitamin B12 level Continue with monthly B12 IM injections. Will recheck labs in mid to late December to see if she is keeping a steady state of the B12 if dropping significantly may need to decrease the duration between the injections. * Assessment & Plan Note - Starr Bran PA - 12/14/2020 2:19 PM CDT Associated Problem(s): Vitamin D deficiency Supplement * Assessment & Plan Note - Starr Bran PA - 12/14/2020 2:19 PM CDT Associated Problem(s): History of pulmonary embolus (PE) Tolerating the Eliquis. Will continue to monitor. She is to call with any increased symptoms. * Assessment & Plan Note - Starr Bran PA - 12/14/2020 2:18 PM CDT Associated Problem(s): History of DVT (deep vein thrombosis) Right leg is still significantly swollen. Pain is minimal. Continue with compression stockings and elevation. Call with any increased symptoms. She is tolerating the Eliquis well. Eliquis was startedin October of 2020 * Assessment & Plan Note - Starr Bran PA - 12/14/2020 2:18 PM CDT Associated Problem(s): Essential hypertension Bp is stable/in acceptable range for any co-morbidities. Encouraged to limit sodium intake and exercise for weight control. Continue lisinopril * Assessment & Plan Note - Starr Bran PA - 12/14/2020 2:17 PM CDT Associated Problem(s): PHAN (dyspnea on exertion) Shortness of breath still persists at times although much improved from the initial onset in October.Will continue to monitor her pulmonary embolisms. She is continue with the Eliquis. If she has increases when she is to follow up immediately. Will consider repeat CT of the chest in February. * Assessment & Plan Note - Starr Bran PA - 12/14/2020 2:17 PM CDT Associated Problem(s): Acute pain of left knee Improving with PT * Assessment & Plan Note - Flaco Morales MA - 12/14/2020 10:18 AM CDT Associated Problem(s): Obesity (BMI 30-39.9) (Resolved 02/15/2021) Obesity is unchanged. Discussed the patient's BMI. The BMI is above average. BMI management plan is completed. BMI Follow-up includes: nutrition counseling, exercise counseling and education provided. * Assessment & Plan Note - Flaco Morales MA - 12/14/2020 10:18 AM CDT Associated Problem(s): BMI 34.0-34.9,adult (Resolved 02/15/2021) Obesity is unchanged. Discussed the patient's BMI. The BMI is above average. BMI management plan is completed. BMI Follow-up includes: nutrition counseling, exercise counseling and education provided. * Addendum Note - Gabriela Hankins CLT - 12/14/2020 10:00 AM CDTAddended by: GABRIELA HANKINS on: 02/09/2021 08:28 AM Modules accepted: Orders documented in this encounter Plan of Treatment Not on file documented as of this encounter Results * Vitamin B12 (02/09/2021 8:29 AM CDT) [facility] Vitamin B12 230 230 - 1,250 pg/mL LELAND GARCIA Comment:Testing performed by : [facility], [address] [place] [address]., [id number] Blood specimen (specimen) 02/09/2021 8:29 AM CDT 02/09/2021 10:15 AM CDT Starr SALVADOR LAB BLOOD ORDERABLES Final Result LELAND [address] [facility] Department [place] [address] documented in this encounter Visit Diagnoses Diagnosis Essential hypertension- Primary Unspecified essential hypertension Low vitamin B12 level DVT (deep venous thrombosis) (CMS/HCC) (HCC) Acute venous embolism and thrombosis of unspecified deep vessels of lower extremity Bilateral pulmonary embolism (CMS/HCC) (HCC) Other pulmonary embolism and infarction Vitamin D deficiency Acute pain of left knee SOB (shortness of breath) on exertion Shortness of breath Iron deficiency anemia due to chronic blood loss Iron deficiency anemia secondary to blood loss (chronic) Other fatigue BMI 34.0-34.9,adult Obesity (BMI 30-39.9) documented in this encounter Administered Medications Inactive [...] (10 mg total) by mouth daily Reorder 10/09/2020 12/14/2020 documented as of this encounter Orders Medications Ordered That Sonido ht Not Have Been Administered Count Last Ordered Date First Ordered Date cyanocobalamin (Vitamin B-12 ) injection 1,000 mcg 1 12/14/2020 documented in this encounter Care Teams Mother Helper Relationship Specialty Start Date End Date Starr Bran PA [address] [facility] [address] [place] [address] PCP - General Internal Medicine 12/30/18 documented as of this encounter
--- OUTSIDE RECORDS SUMMARY | 2024-07-18 20:35 | XMS_ITS | Encounter Summary ---
Author Organization [facility] Address [address] [facility] [address] [place] [address] Phone Care Team Providers Care Deliver Driver Name Role Phone Starr Bran Primary Care Provider +1- [phone] Encounter Details Date Type Department Care Team (Late st Contact Info) Description 12/16/[address] 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 Olea on 02/02/21. She is hoping she can reschedule to either 01/26/21 or 02/09/21 and may be reached at . documented in this encounter Plan of Treatment Not on file documented as of this encounter Visit Diagnoses Not on filedocumented in this encounter Care Teams Deliver Driver Relationship Specialty Start Date End Date Starr Bran PA [address] [facility] [address] [place] [address] PCP - General Internal Medicine 12/30/18 documented as of this encounter
--- OUTSIDE RECORDS SUMMARY | 2024-07-18 20:36 | XMS_ITS | Encounter Summary ---
Author Organization [facility] Address [address] [facility] [address] [place] [address] Care Team Providers Care Scrap Picker Name Role Phone Starr Bran Primary Care Provider +1- [phone] Reason for Visit * Reason Comments B12 Injection Encounter Details Date Type Department Care Team (Latest Contact Info) Description 11/11/2020 11:30 AM CDT Clinical Support [facility] Family Medicine [address] [facility] [address] [place] [address] Vitamin B 12 deficiency (Primary Dx) Social History Tobacco Use Types Packs/Day Years Used Date Smoking Tobacco: Never Smokeless Tobacco: Never AUDIT-C Answer Date Recorded Q1: How often do you have a drink containing alc ohol? Never 10/04/2020 Average Number of Drinks Not on file 021 Q3: How often do you have si x or more drinks on one occasion? 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
--- OUTSIDE RECORDS SUMMARY | 2024-07-18 20:36 | XMS_ITS | Encounter Summary ---
Author Organization [facility] Address [address] [facility] [address] [place] [address] Care Team Providers Care Splunk Consultant Name Role Phone Starr Bran Primary Care Provider +1- [phone] Reason for Visit * Reason Comments Injections Encounter Details Date Type Department Care Team (Latest Contact Info) Description 11/23/2020 11:30 AM CDT Clinical Support [facility] Family Medicine [address] [facility] [address] [place] [address] Low vitamin B12 level (Primary [...] Deltoid documented in this encounter Care Teams Splunk Consultant Relationship Specialty Start Date End Date Starr Bran PA [address] [address] PCP - General Internal Medicine 12/30/18 documented as of this encounter
--- OUTSIDE RECORDS SUMMARY | 2024-07-18 20:36 | XMS_ITS | Encounter Summary ---
Author Organization [facility] Address [address] [place] [address] Care Team Providers Care Booking Agent Name Role Phone Starr Bran Primary Care Provider [phone]- [phone] Reason for Visit * Reason Comments Shortness of Breath Immunizations B12 Encounter Details Date Type Department Care Team (Late st Contact Info) Description 11/15/2020 8:30 AM CDT Office Visit [facility] Family Medicine [address] [place] [address] Starr Bran PA [address] [place] [address] Bilateral pulmonary embolism (CMS/HCC) (Primary Dx); DVT (deep venous thrombosis) (CMS/HCC); Iron deficiency anemia due to chronic blood loss; SOB (shortness of breath) on exertion; Acute pain of left knee; Low vitamin B12 level; Fatigue, unspecified type; Essential hypertension; Hyperglycemia; Vitamin D deficiency; Diabetes mellitus screening; Obesity (BMI 30-39.9); BMI 34.0-34.9,adult Social History Tobacco Use Types Packs/Day Years [...] file 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 Gender Identity Female 02/02/2021 7:25 AM CDT Sexual Orientation Straight 02/02/2021 7: 25 AM CDT documented as of this encounter Last Filed Vital Signs Vital Sign Reading Time Taken Comments Blood Pressure 124/80 11/15/2020 8:29 AM CDT Pulse 88 11/15/2020 8:29 AM CDT Temperature 36.9 ??C (98.5 ??F) 11/15/2020 8:29 AM CD T Respiratory Rate - - Oxygen Saturation 95% 11/15/2020 8:29 AM CDT Inhaled Oxygen Concentration - - Weight 88 kg (194 lb) 11/15/2020 8:29 AM CDT Height 159.8 cm (5' 2.9 ) 11/15/2020 8:29 AM CDT Body Mass Index 34.47 11/15/2020 8:29 AM CDT documented in this encounter Progress Notes * Starr Bran PA - 11/15/2020 8:30 AM CDT Images from the original note were not included. Subjective/Objective Patient ID: Viktoriya Bell is a 55 y.o. female. Chief Complaint Shortness of Breath and Immunizations (B12) HPI Patient presents for TCM/followup recent hopsitalization. Admit: 10/31/2020 at [facility] Discharge: 11/03/2020 TCM call done 11/04 ( in the 11/03 telephone note) Today is day 12 after discharge Starr Dougherty PA have personally reviewed all Hospital/ER data including [employer] and CareEverywhere if available. This patient's discharge medication list has been reviewed and reconciled with the medication list in the office chart and has also been reviewed with patient and/or caregiver. I have noted any changes. Dx: SOB, PE, Right LE DVT, Anemia ?? Consult: GI - Dr. Schuler/Dr. Immanuel Wyatt Vascular - Dr. Carla Villalobos/[facility] - Dr. Olea/Dr Orr ?? (B) Pulmonary Embolism/ Right DVT - Sent home on Eliquis. Understands 10mg bid x 7 days total then change to 5mg bid. Plan to be on 6 months and then will consult with Dr. Olea to determine if needs to be indefinitely. Anemia Recvd 2units PRBC in house. Hemoglobin on 11/03 was 10. She will set up iron infusions as outpatient with [facility] - Dr. Olea 12/01/2020 Will monitor H/H Awaiting clotting workup results also. Capsule Endoscopy - Results are still pending. Followup with Dr. Schuler Hasn't had any labs since discharge DepoProvera will be due in November but was instructed to not continue by Dr. Olea. Dr. Bynum. Did Depo for 15+ years without a period. Tried to stop it around age 53 but had 3 months periods so restarted. B12 deficiency (b12 less than 150). Was started on B12 IM in house. Had 3 days of injections. She is to take 1,000mcg daily x 7days 1,000mcg MWF x 1 week 1,000mcg Weekly x 4-5 weeks then may go monthly. She has been on three times a week and will give today and transition to q week each Saturday x 4 then monthl. ?? Twisted her left knee over the weekend. Pain with bending . Full extension is most comfortable. No locking. Review of Systems Constitutional: Negative for fever. HENT: Negative for congestion. Respiratory: Negative for shortness of breath. Cardiovascular: Negative for chest pain. Gastrointestinal: Negative for constipation and diarrhea. Vitals: 11/15/20 0829 BP: 124/80 BP Location: Left arm Patient Position: Sitting Pulse: 88 Temp: 36.9 ??C (98.5 ??F) TempSrc: Oral SpO2: 95% Weight: 88 kg (194 lb) Height: 159.8 cm (5' 2.9 ) Physical Exam Vitals and nursing note reviewed. Constitutional: Appearance: She is well-developed. HENT: Head: Normocephalic and atraumatic. Eyes: Comments: Pupils equal Neck: Thyroid: No thyromegaly. Cardiovascular: Rate and Rhythm: Normal rate and regular rhythm. Heart sounds: No murmur. Pulmonary: Effort: Pulmonary effort is normal. Breath sounds: Normal breath sounds. Abdominal: Palpations: Abdomen is soft. Tenderness: There is no abdominal tenderness. Musculoskeletal: General: Normal range of motion. Skin: General: Skin is warm and dry. Neurological: Mental Status: She is alert and oriented to person, place, and time. Assessment/Plan Diagnoses and all orders for this visit: Bilateral pulmonary embolism (CMS/HCC) (I26.99) (Primary) Assessment & Plan: Patient on Eliquis.5mg bid. Transitioned this week so plan to continue thru April 28 and then reassess Has followup with [facility] Awaiting clotting workup results. DVT (deep venous thrombosis) (CMS/HCC) (I82.409) Assessment & Plan: Continue Eliquis 5mg bid x 6 months. Continue to assess and wait for clotting workup. Iron deficiency anemia due to chronic blood loss (D50.0) Assessment & Plan: Still unknown cause. Awaiting workup/endoscopy results from Dr. Schuler. She has followup soon. Report any bleeding. Check labs Orders: - CBC with auto differential; Future - Comprehensive metabolic panel; Future - Iron profile w/ IBC; Future - Ferritin; Future SOB (shortness of breath) on exertion (R06.02) Assessment & Plan: Improving. Anemia vs PE vs other etiology Continue to treat both and monitor. Acute pain of left knee (M25.562) Assessment & Plan: Start PT Avoid NSAIDs. Tylenol prn with ICE Orders: - Ambulatory referral order to Physical Therapy -; Future Low vitamin B12 level (E53.8) Assessment & Plan: Continue IM supplement. She will recv today and tommorow then Qweek x 4. Check labs Orders: - Vitamin B12; Future Fatigue, unspecified type (R53.83) Assessment & Plan: Probably multifactorial. Check labs and followup to re-evaluate Check labs Orders: - CBC with auto differential; Future - Comprehensive metabolic panel; Future - TSH; Future Essential hypertension (I10) Assessment & Plan: Bp is stable/in acceptable range for any co-morbidities. Encouraged to limit sodium intake and exercise for weight control. Continue lisinopril 10mg Hyperglycemia (R73.9) Assessment & Plan: Pre-diabetes/hyperglycemia is a precursor to Dm. Stressed importance of working on diet (decrease your simple sugars and one carbohydrate with each meal) and increase you exercise to achieve weight loss and this will help prevent you from progressing to diabetes. Vitamin D deficiency (E55.9) Assessment & Plan: supplement Diabetes mellitus screening (Z13.1) Assessment & Plan: Check labs Obesity (BMI 30-39.9) (E66.9) Assessment & Plan: [...] nutrition counseling, exercise counseling and education provided. Starr Bran PA-C documented in this encounter Miscellaneous Notes * Assessment & Plan Note - Starr Bran PA - 11/15/2020 11:13 PM CDT Associated Problem(s): Acute pain of left knee Start PT Avoid NSAIDs. Tylenol prn with ICE * Assessment & Plan Note - Starr Bran PA - 11/15/2020 11:11 PM CDT Associated Problem(s): History of DVT (deep vein thrombosis) Continue Eliquis 5mg bid x 6 months. Continue to assess and wait for clotting workup. * Assessment & Plan Note - Starr Bran PA - 11/15/2020 11:10 PM CDT Associated Problem(s): Diabetes mellitus screening (Resolved 02/14/2021) Check labs * Assessment & Plan Note - Starr Bran PA - 11/15/2020 11:10 PM CDT Associated Problem(s): Fatigue (Resolved 12/14/2020) Probably multifactorial. Check labs and followup to re-evaluate Check labs * Assessment & Plan Note - Starr Bran PA - 11/15/2020 11:09 PM CDT Associated Problem(s): Iron deficiency anemia due to chronic blood loss Still unknown cause. Awaiting workup/endoscopy results from Dr. Schuler. She has followup soon. Report any bleeding. Check labs * Assessment & Plan Note - Starr Bran PA - 11/15/2020 11:08 PM CDT Associated Problem(s): Low vitamin B12 level Continue IM supplement. She will recv today and tommorow then Qweek x 4. Check labs * Assessment & Plan Note - Starr Bran PA - 11/15/2020 11:08 PM CDT Associated Problem(s): Hyperglycemia Pre-diabetes/hyperglycemia is a precursor to Dm. Stressed importance of working on diet (decrease your simple sugars and one carbohydrate with each meal) and increase you exercise to achieve weight loss and this will help prevent you from progressing to diabetes. * Assessment & Plan Note - Starr Bran PA - 11/15/2020 11:07 PM CDT Associated Problem(s): Vitamin D deficiency supplement * Assessment & Plan Note - Starr Bran PA - 11/15/2020 11:06 PM CDT Associated Problem(s): History of pulmonary embolus (PE) Patient on Eliquis.5mg bid. Transitioned this week so plan to continue thru April 28 and then reassess Has followup with [facility] Awaiting clotting workup results. * Assessment & Plan Note - Starr Bran PA - 11/15/2020 11:05 PM CDT Associated Problem(s): Essential hypertension Bp is stable/in acceptable range for any co-morbidities. Encouraged to limit sodium intake and exercise for weight control. Continue lisinopril 10mg * Assessment & Plan Note - Starr Bran PA - 11/15/2020 11:05 PM CDT Associated Problem(s): PHAN (dyspnea on exertion) Improving. Anemia vs PE vs other etiology Continue to treat both and monitor. * Assessment & Plan Note - Flaco Morales MA - 11/15/2020 8:32 AM CDT Associated Problem(s): BMI 34.0-34.9,adult (Resolved 12/14/2020) Obesity is unchanged. Discussed the patient's BMI. The BMI is above average. BMI management plan is completed. BMI Follow-up includes: nutrition counseling, exercise counseling and education provided. * Assessment & Plan Note - Flaco Morales MA - 11/15/2020 8:32 AM CDT Associated Problem(s): Obesity (BMI 30-39.9) (Resolved 12/14/2020) Obesity is unchanged. Discussed the patient's BMI. The BMI is above average. BMI management plan is completed. BMI Follow-up includes: nutrition counseling, exercise counseling and education provided. documented in this encounter Plan of Treatment Not on file documented as of this encounter Procedures Procedure Name Priority Date/Time Associated Diagnosis Comments IRON PROFILE W/ IBC Routine 11/28/2020 8 :50 AM CDT Iron deficiency anemia due to chronic blood loss CBC WITH AUTO DIFFERENTIAL Routine 11/28/2020 8:50 AM CDT Iron deficiency anemia due to chronic blood loss Fatigue, unspecified type TSH Routine 11/28/2020 8:50 AM CDT Fatigue, unspecified type FERRITIN Routine 11/28/2020 8:50 AM CDT Iron deficiency anemia due to chronic blood loss VITAMIN B12 Routine 11/28/2020 8:50 AM CDT Low vitamin B12 level COMPREHENSIVE METABOLIC PANEL Routine 11/28/2020 8:50 AM CDT Iron deficiency anemia due to chronic blood loss Fatigue, unspecified type documented in this encounter Results * Vitamin B12 (11/28/2020 8:50 AM CDT) Vitamin B12 477 232 - 1,245 pg/mL [facility] - 01 Blood specimen (specimen) 11/28/2020 8:50 AM CDT 11/28/2020 Narrative [facility] - 11/29/2020 9:36 AM CDT Performed at: ??01 - [facility] [address] ??[id number] Construction Representative: Parveen Lofton PhD, Phone: ??[phone] Starr SALVADOR LAB BLOOD ORDERABLES Final Result Performing Organization Address [facility] Co de Phone Number [facility] - 01 * Ferritin (11/28/2020 8:50 AM CDT) Ferritin 24 15 - 150 ng/mL [facility] - 01 Blood specimen (specimen) 11/28/2020 8:50 AM CDT 11/28/2020 Narrative [facility] - 11/29/2020 9:36 AM CDT Performed at: ??01 - [facility] ??[id number] Construction Representative: Parveen Lofton PhD, Phone: ??[phone] Starr SALVADOR LAB BLOOD ORDERABLES Final Result Performing Organization Address [facility] de Phone Number [facility] - * Iron profile w/ IBC (11/28/2020 8:50 AM CDT) Iron Bind.Cap.(TIBC) 311 250 - 450 ug/dL [facility] - 01 UIBC 241 131 - 425 ug/dL [facility] - 01 Iron 70 27 - 159 ug/dL [facility] - 01 Iron saturation 23 15 - 55 % [facility] - 01 Blood specimen (specimen) 11/28/2020 8:50 AM CDT 11/28/2020 Narrative [facility] - 11/29/2020 9:36 AM CDT Performed at: ??01 - [facility] ??[id number] Construction Representative: Parveen Lofton PhD, Phone: ??[phone] Starr SALVADOR LAB BLOOD ORDERABLES Final Result Performing Organization Address [facility] de Phone Number [facility] - 01 * TSH (11/28/2020 8:50 AM CDT) TSH 1.420 0.450 - 4.500 uIU/mL [facility] - 01 Blood specimen (specimen) 11/28/2020 8:50 AM CDT 11/28/2020 Narrative [facility] - 11/29/2020 9:36 AM CDT Performed at: ??01 - [facility] ??[id number] Construction Representative: Parveen Lofton PhD, Phone: ??[phone] Starr SALVADOR LAB BLOOD ORDERABLES Final Result [facility] - 01 * (ABNORMAL) Comprehensive metabolic panel (11/28/2020 8:50 AM CDT) Glucose 117(H) 65 - 99 mg/dL [facility] - 01 BUN 8 6 - 24 mg/dL [facility] - 01 Creatinine, Serum 0.68 0.57 - 1.00 mg/dL [facility] - 01 eGFR If NonAfricn Am 98 >59 mL/min/1.7 3 [facility] - 01 eGFR If Africn Am 113 >59 mL/min/1.7 3 [facility] - 01 Comment: [facility] currently reports eGFR in compliance with the current ??recommendations of the National Kidney Foundation. [facility] will ??update reporting as new guidelines are published from the NKF-ASN ??Task force. BUN/creat ratio 12 9 - 23 [facility] - 01 Sodium 141 134 - 144 mmol/L [facility] - 01 Potassium, sr 3.7 3.5 - 5.2 mmol/L [facility] - 01 Chloride 107(H) 96 - 106 mmol/L [facility] - 01 CO2 21 20 - 29 mmol/L [facility] - 01 Calcium 8.8 8.7 - 10.2 mg/dL [facility] - 01 Protein, sr 6.4 6.0 - 8.5 g/dL [facility] - 01 Albumin 4.1 3.8 - 4.9 g/dL [facility] - 01 Globulin, Total 2.3 1.5 - 4.5 g/dL [facility] - 01 A/G Ratio 1.8 1.2 - 2.2 [facility] - 01 Bilirubin, Total 0.4 0.0 - 1.2 mg/dL [facility] - 01 Alk phos 72 39 - 117 IU/L [facility] - 01 AST 12 0 - 40 IU/L [facility] - 01 ALT 11 0 - 32 IU/L [facility] - 01 Blood specimen (specimen) 11/28/2020 8:50 AM CDT 11/28/2020 Narrative [facility] - 11/29/2020 9:36 AM CDT Performed at: ?? - [address] ??[id number] Construction Representative: Parveen Lofton PhD, Phone: ??[phone] Starr SALVADOR LAB BLOOD ORDERABLES Final Result [facility] - 01 * (ABNORMAL) CBC with auto differential (11/28/2020 8:50 AM CDT) WBC 4.1 3.4 - 10.8 x10E3/uL [facility] - 01 RBC 3.34(L) 3.77 - 5.28 x10E6/uL [facility] - 01 Hgb 10.0(L) 11.1 - 15.9 g/dL [facility] - 01 Hct 31.4(L) 34.0 - 46.6 % [facility] - 01 MCV 94 79 - 97 fL [facility] - 01 MCH 29.9 26.6 - 33.0 pg [facility] - 01 MCHC 31.8 31.5 - 35.7 g/dL [facility] - 01 Rdw 15.2 11.7 - 15.4 % [facility] - 01 Platelets 237 150 - 450 x10E3/uL [facility] - 01 Neutrophils pct 68 Not Estab. % [facility] - 01 Lymphs pct 20 Not Estab. % [facility] - 01 Monocytes pct 7 Not Estab. % [facility] - 01 Eosinophils pct 4 Not Estab. % [facility] - 01 Basophil pct 1 Not Estab. % [facility] - 01 Neutrophil abs 2.8 1.4 - 7.0 x10E3/uL [facility] - 01 Lymphs (Absolute) 0.8 0.7 - 3.1 x10E3/uL [facility] - 01 Monocyte abs 0.3 0.1 - 0.9 x10E3/uL [facility] - 01 Eosinophils, abs 0.2 0.0 - 0.4 x10E3/uL [facility] - 01 Basophils, abs 0.0 0.0 - 0.2 x10E3/uL [facility] - 01 Immature Granulocytes 0 Not Estab. % [facility] - 01 Immature Grans (Abs) 0.0 0.0 - 0.1 x10E3/uL [facility] - 01 Blood specimen (specimen) 11/28/2020 8:50 AM CDT 11/28/2020 Narrative [facility] - 11/29/2020 9:36 AM CDT Performed at: ??01 - [facility] [address] ??[id number] Construction Representative: Parveen Lofton PhD, Phone: ??[phone] Starr SALVADOR LAB BLOOD ORDERABLES Final Result [facility] - documented in this encounter Visit Diagnoses Diagnosis Bilateral pulmonary embolism (CMS/HCC) (HCC)- Primary Other pulmonary embolism and infarction DVT (deep venous thrombosis) (CMS/HCC) (HCC) Acute venous embolism and thrombosis of unspecified deep vessels of lower extremity Iron deficiency anemia due to chronic blood loss Iron deficiency anemia secondary to blood loss (chronic) SOB (shortness of breath) on exertion Shortness of breath Acute pain of left knee Low vitamin B12 level Fatigue, unspecified type Essential hypertension Unspecified essential hypertension Hyperglycemia Other abnormal glucose Vitamin D deficiency Diabetes mellitus screening Screening for diabetes mellitus Obesity (BMI 30-39.9) BMI 34.0-34.9,adult documented in this encounter Administered Medications Inactive [...] Reason Start Date End Da te medroxyPROGESTERone (DEPO-PROVERA) 400 mg/mL suspension Inject 400 mg/mL into the muscle as instructed Therapy completed 11/15/2020 metoclopramide (REGLAN) 10 mg tablet Take 10 mg by mouth daily Therapy completed 10/26/2020 11/15/2020 omeprazole (PriLOSEC) 20 mg capsule Take 20 mg by mouth daily Therapy completed 10/12/2020 11/15/2020 documented as of this encounter Care Teams Booking Agent Relationship Specialty Start Date End Date Starr Bran PA [address] [address] PCP - General Internal Medicine 12/30/18 documented as of this encounter
--- OUTSIDE RECORDS SUMMARY | 2024-07-18 20:36 | XMS_ITS | Encounter Summary ---
Author Organization [facility] Address [address] [place] [address] Care Team Providers Care Moveman Name Role Phone Starr Bran Primary Care Provider [phone]- [phone] Reason for Visit * Reason Comments Immunizations Encounter Details Date Type Department Care Team (Latest Contact Info) Description 11/09/2020 11:30 AM CDT Clinical Support [facility] Family Medicine [address] [place] [address] Vitamin B 12 deficiency (Primary [...] on file 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
--- OUTSIDE RECORDS SUMMARY | 2024-07-18 20:36 | XMS_ITS | Encounter Summary ---
Author Organization [facility] Address [address] [facility] [address] [place] [address] Phone Care Team Providers Care Bituminous Paving Machine Operator Name Role Phone Starr Bran Primary Care Provider +1- [phone] Reason for Referral * Diagnostic Lab (Routine) - Closed Specialty Diagnoses / Procedures Referred By Contac t Referred To Contact Lab Diagnoses Iron deficiency anemia due to chronic blood loss DVT (deep venous thrombosis) ([facility]/HCC) (HCC) Procedures Prothrombin Gene (Factor 2) Mutation Detection Bruce Olea MD Phone: tel: fax: Referral ID Status Reason Start Date Expiration Date Visits Re quested Visits Authorized [id number] Closed 12/01/2020 03/01/2021 1 1 Reason for Visit * Reason Comments Follow-up Anemia Encounter Details Date Type Department Care Team (Late st Contact Info) Description 12/01/2020 8:45 AM CDT Office Visit [facility] Oncology [address] [place] [address] [address] [place] [address] Bruce Olea MD [address] [facility] [address] Iron deficiency anemia due to chronic blood loss (Primary Dx); DVT (deep venous thrombosis) (CMS/HCC) Social History Tobacco Use Types Packs/Day Years [...] on file 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 Gender Identity Female 02/02/2021 7:25 AM CDT Sexual Orientation Straight 02/02/2021 7: 25 AM CDT documented as of this encounter Last Filed Vital Signs Vital Sign Reading Time Taken Comments Blood Pressure 125/77 12/01/2020 8:37 AM CDT Pulse 82 12/01/2020 8:37 AM CDT Temperature 37.1 ??C (98.8 ??F) 12/01/2020 8:37 AM CD T Respiratory Rate 16 12/01/2020 8:37 AM CDT Oxygen Saturation 99% 12/01/2020 8:37 AM CDT Inhaled Oxygen Concentration - - Weight 89.7 kg (197 lb 12.8 oz) 12/01/2020 8:37 AM CDT Height 160 cm (5' 3 ) 12/01/2020 8:37 AM CDT Body Mass Index 35.04 12/01/2020 8:37 AM CDT documented in this encounter Progress Notes * Bruce Olea MD - 12/01/2020 8:45 AM CDT Visit Date: 12/01/2020 Requesting Provider: Bruce Olea MD Primary Care Physician: Starr Bran PA Diane R Paz 55 y.o. female Chief Complaint: The patient was referred for my opinion and recommendations regarding further evaluation and management of iron deficiency anemia and PE HPI: 55-year-old pleasant female with a past medical history of hypertension who initially presented on 09/28/20 to her family physician for fatigue. She was found to have hemoglobin of 4.8 and was sent to the ED of [facility] where hemoglobin was 4.6 with MCV [...] endoscopydone by Dr. Schuler was also negative. Interval history: She presents today for follow-up. Hemoglobin is 10, with WBC 4.1 and platelet count of 237. Ferritin was 24 with T sat of 23%. TSH was normal. Currently she is on 325 mg b.i.d. of ferrous sulfate. She also is receiving weekly vitamin B12 injection. She is due to see her livestock laborer for pelvic ultrasound inApril 2020 Past Medical History: Diagnosis Date ??? Anemia History reviewed. No pertinent surgical history. Prior to Admission medications Medication Sig Start [...] PA multivitamin (DAILY MULTI-VITAMIN) tablet daily Yes Provider, MD Saloni No Known Allergies Social History Socioeconomic History [...] Strain: ??? Difficulty of Paying Living Expenses: Food Insecurity: ??? Worried About Running Out of Food in the Last Year: ??? Ran Out of Food in the Last Year: Transportation Needs: ??? Lack of Transportation (Medical): ??? Lack of Transportation (Non-Medical): Physical Activity: ??? Days of Exercise per Week: ??? Minutes of Exercise per Session: Stress: ??? Feeling of Stress : Social Connections: ??? Frequency of Communication with Friends and Family: ??? Frequency of Social Gatherings with Friends and Family: ??? Attends Hindu Services: ??? Active Member of Clubs or Organizations: ??? Attends Club or Organization Meetings: ??? Marital Status: Intimate Partner Violence: ??? Fear of Current or Ex-Partner: ??? Emotionally Abused: ??? Physically Abused: ??? Sexually Abused: Family History Problem Relation Age of Onset [...] are negative. Objective ECOG 0 Vitals BP 125/77 (BP Location: Left arm) Pulse 82 Temp 37.1 ??C (98.8 ??F) (Oral) Resp 16 Ht 160 cm (5' 3 ) Wt 89.7 kg (197 lb 12.8 oz) SpO2 99% BMI 35.04 kg/m?? Physical Exam: -GENERAL: calm -EYES: Extraocular [...] hour(s)) CBC with auto differential Collection Time: 11/28/20 8:50 AM Result Value Ref Range WBC 4.1 3.4 - 10.8 x10E3/uL RBC 3.34 (L) 3.77 - 5.28 x10E6/uL Hgb 10.0 (L) 11.1 - 15.9 g/dL Hct 31.4 (L) 34.0 - 46.6 % MCV 94 79 - 97 fL MCH 29.9 26.6 - 33.0 pg MCHC 31.8 31.5 - 35.7 g/dL Rdw 15.2 11.7 - 15.4 % Platelets 237 150 - 450 x10E3/uL Neutrophils 68 Not Estab. % Lymphs 20 Not Estab. % Monocytes 7 Not Estab. % Eosinophils 4 Not Estab. % Basophil pct 1 Not Estab. % Neutrophil abs 2.8 1.4 - 7.0 x10E3/uL Lymphs (Absolute) 0.8 0.7 - 3.1 x10E3/uL Monocyte abs 0.3 0.1 - 0.9 x10E3/uL Eosinophils, abs 0.2 0.0 - 0.4 x10E3/uL Basophils, abs 0.0 0.0 - 0.2 x10E3/uL Immature Granulocytes 0 Not Estab. % Immature Grans (Abs) 0.0 0.0 - 0.1 x10E3/uL Comprehensive metabolic panel Collection Time: 11/28/20 8:50 AM Result Value Ref Range Glucose 117 (H) 65 - 99 mg/dL BUN 8 6 - 24 mg/dL Creatinine, Serum 0.68 0.57 - 1.00 mg/dL eGFR If NonAfricn Am 98 >59 mL/min/1.73 eGFR If Africn Am 113 >59 mL/min/1.73 BUN/creat ratio 12 9 - 23 Sodium 141 134 - 144 mmol/L Potassium, sr 3.7 3.5 - 5.2 mmol/L Chloride 107 (H) 96 - 106 mmol/L CO2 21 20 - 29 mmol/L Calcium 8.8 8.7 - 10.2 mg/dL Protein, sr 6.4 6.0 - 8.5 g/dL Albumin 4.1 3.8 - 4.9 g/dL Globulin, Total 2.3 1.5 - 4.5 g/dL A/G Ratio 1.8 1.2 - 2.2 Bilirubin, Total 0.4 0.0 - 1.2 mg/dL Alk phos 72 39 - 117 IU/L AST 12 0 - 40 IU/L ALT 11 0 - 32 IU/L TSH Collection Time: 11/28/20 8:50 AM Result Value Ref Range TSH 1.420 0.450 - 4.500 uIU/mL Iron profile w/ IBC Collection Time: 11/28/20 8:50 AM Result Value Ref Range Iron Bind.Cap.(TIBC) 311 250 - 450 ug/dL UIBC 241 131 - 425 ug/dL Iron 70 27 - 159 ug/dL Iron saturation 23 15 - 55 % Ferritin Collection Time: 11/28/20 8:50 AM Result Value Ref Range Ferritin 24 15 - 150 ng/mL Vitamin B12 Collection Time: 11/28/20 8:50 AM Result Value Ref Range Vit B12 binding capacity 477 232 - 1,245 pg/mL Patient Active Problem List Diagnosis Date Noted ??? Bilateral pulmonary embolism (CMS/HCC) 11/15/2020 ??? Obesity (BMI 30-39.9) 11/15/2020 ??? BMI 34.0-34.9,adult 11/15/2020 ??? Low vitamin B12 level 11/15/2020 ??? Diabetes mellitus screening 11/15/2020 ??? Fatigue 11/15/2020 ??? DVT (deep venous thrombosis) (CMS/HCC) 11/15/2020 ??? Acute pain of left knee 11/15/2020 ??? Iron deficiency anemia due to chronic blood loss 10/09/2020 ??? SOB (shortness of breath) on exertion 09/25/2020 ??? Hyperglycemia 01/19/2019 ??? Other fatigue 01/19/2019 ??? Lipid screening 01/19/2019 ??? Essential hypertension 01/16/2019 ??? Menorrhagia with regular cycle 01/16/2019 ??? Vitamin D deficiency 01/16/2019 Assessment/ Plan: 1. Iron deficiency anemia: A GI workup with colonoscopy, EGD and capsule endoscopy were all negative for acute bleed. Stool for occult blood was positive and she could be having a slow GI bleed. She is currently on ferrous sulfate 325 mg b.i.d. and H&H is improving. Continue supplementation of iron orally. 2. 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 Likely the cause of lack of oral vitamin B12 absorption. Continue parenteral substitution of vitamin B12 which is being done by herPCP, Dr. Bran. Will follow her up in 2 months with repeat studies of iron, B12 as well as CBC. She also needs to follow-up with Dr. Schuler for surveillance endoscopy. Bruce Olea MD 12/01/2020 Interlacer completed by using [employer] Direct speaking software, therefore, transcriptionvariances may occur documented in this encounter Miscellaneous Notes * Addendum Note - Mary Camp RN - 12/01/2020 8:45 AM CDTAddended by: MARY CAMP on: 12/02/2020 07:57 AM Modules accepted: Orders * Addendum Note - Mary Camp RN - 12/01/2020 8:45 AM CDTAddended by: MARY CAMP on: 02/06/2021 10:58 AM Modules accepted: Orders documented in this encounter Plan of Treatment Not on file documented as of this encounter Procedures Procedure Name Priority Date/Time Associated Diagnosis Comments PROTHROMBIN GENE (FACTOR 2) MUTATION DETECTION Routine 12/01/2020 9:29 AM CDT Iron deficiency anemia due to chronic blood loss DVT (deep venous thrombosis) (CMS/HCC) LUPUS ANTICOAGULANT Routine 12/01/2020 9 :29 AM CDT Iron deficiency anemia due to chronic blood loss DVT (deep venous thrombosis) (CMS/HCC) documented in this encounter Results * (ABNORMAL) CBC with auto differential (02/09/2021 8:29 AM CDT) WBC 5.0 3.8 - 9.9 K/cumm [facility] GARCIA Comment:Testing performed by : [facility], [address] [place] [address]., [address] Hgb 9.8(L) 11.9 - 15.5 g/dL LELAND Comment:Testing performed by : [address], [address] Hct 31.8(L) 35.6 - 45.5 % LELAND Comment:Testing performed by : [address] [address] Plt 293 150 - 400 K/cumm LELAND Comment:Testing performed by : [address], [address] MPV 10.1 9.1 - 12.3 fL LELAND Comment:Testing performed by : [address], [address] RBC 3.57(L) 3.90 - 5.20 M/cumm L[facility]AND Comment:Testing performed by : [address], [address] MCV 89.1 81.3 - 96.4 fL [facility] Comment:Testing performed by : [address], [address] MCH 27.5 27.1 - 33.3 pg L[facility]AND Comment:Testing performed by : [address], [address] MCHC 30.8(L) 32.3 - 35.7 g/dL [facility]AND Comment:Testing performed by : [address], [address] RDW CV 14.6 11.1 - 14.9 % L[facility]AND Comment:Testing performed by : [address], [address] RDW SD 46.3 35.7 - 48.1 fL [facility] Comment:Testing performed by : [address], [address] Blood specimen (specimen) 02/09/2021 8:29 AM CDT 02/09/2021 8:43 AM CDT Bruce Olea MD LAB BLOOD ORDERABLES Final Res ult [id number] Department [place] [address] * Lupus anticoagulant (12/01/2020 9:29 AM CDT) Prothrombin time ARUP 15.0 12.0 - 15.5 sec [facility] PTT ARUP 33 32 - 48 sec [facility] Dil Leonardo Viper Venom 36 33 - 44 sec [facility] Lupus Anticoag Interp See Note [facility] Comment: Lupus anticoagulant not detected. The phospholipid-dependent screening tests (PTT, DRVVT) are not prolonged. Lupus anticoagulant antibodies are heterogeneous and antibody titers fluctuate over time. Laboratory tests used to identify lupus anticoagulants demonstrate variable sensitivity. If there is strong clinical suspicion for antiphospholipid antibody syndrome (APS), consider testing for cardiolipin and beta-2 glycoprotein 1 antibodies (IgG and IgM) if this testing has not already been performed. INTERPRETIVE INFORMATION: Lupus Anticoagulant Interpretation This test was developed and its performance characteristics determined by [facility]. It has not been cleared or approved by the US Food and Drug Administration. This test was performed in a CLIA certified laboratory and is intended for clinical purposes. Counseling and informed consent are recommended for genetic testing. Consent forms are available online. Performed By: [facility] [address] [place] [id number] Medical Insurance Coding Specialist: Kelley Joseph MD, MS Blood specimen (specimen) 12/01/2020 9:29 AM CDT 12/01/2020 9:30 AM CDT Narrative Resulting Agency Comment RCR Bruce Olea MD LAB BLOOD ORDERABLES Final Res ult Performing Organization Address [facility]/ZIP Co de Phone Number [facility] [employer] [address] [place] [address] * Prothrombin Gene (Factor 2) Mutation Detection (12/01/2020 9:29 AM CDT) Prothrombin Specimen Whole Blood [facility] Prothrombin Gene Mutate Negative [facility] Comment: Indication for testing: Assess genetic risk for thrombosis. NEGATIVE: The Factor II, prothrombin C30076I mutation, was not detected. ??Other causes of elevated prothrombin levels and hereditary forms of venous thrombosis have not been excluded. Recommendations: ??If clinically indicated, testing for other inherited or acquired thrombophilic disorders is recommended including DNA testing for the factor V Leiden mutation, measurement of total plasma homocysteine concentration, serological assays for anticardiolipin antibodies, multiple phospholipid-dependent coagulation assays for lupus inhibitor, protein C activity, protein S activity or free protein S antigen, and antithrombin activity. This result has been reviewed and approved by Sacha Lizama, Ph.D. BACKGROUND INFORMATION: Prothrombin (F2) c.*97G>A ?(M74553Z) Pathogenic Variant CHARACTERISTICS: The Factor II, c.*97G>A (F06681N) pathogenic variant is a common genetic risk factor for venous thrombosis associated with elevated prothrombin levels leading to increased rates of thrombin generation and excessive growth of fibrin clots. The expression of Factor II thrombophilia is impacted by coexisting genetic thrombophilic disorders, acquired thrombophilic disorders (eg, malignancy, hyperhomocysteinemia, high factor VIII levels), and circumstances including: , oral contraceptive use, hormone replacement therapy, selective estrogen receptor modulators, travel, central venous catheters, surgery, and organ transplantation. INCIDENCE: Approximately 2 percent of Caucasians and 0.3 percent of Americans are heterozygous; homozygosity occurs in 1 in 10,000 individuals. INHERITANCE: Incomplete autosomal dominant. PENETRANCE: The risk of thrombosis is increased 2-4 fold for heterozygotes and further increased for homozygotes. CAUSE: Homozygosity or heterozygosity for F2 c.*97G>A ([id number]). PATHOGENIC VARIANT TESTED: F2 c.*97G>A ([id number]). CLINICAL SENSITIVITY FOR VENOUS THROMBOSIS: Approximately 10 percent. METHODOLOGY: Polymerase chain reaction and fluorescence monitoring. ANALYTICAL SENSITIVITY AND SPECIFICITY: 99 percent. LIMITATIONS: Diagnostic errors can occur due to rare sequence variations. F2 gene variants, other than c.*97G>A ([id number]), will not be detected. This test was developed and its performance characteristics determined by [facility]. It has not been cleared or approved by the US Food and Drug Administration. This test was performed in a CLIA certified laboratory and is intended for clinical purposes. Counseling and informed consent are recommended for genetic testing. Consent forms are available online. Performed By: [facility] [address] [place] [id number] Medical Insurance Coding Specialist: Kelley Joseph MD, MS Blood specimen (specimen) 12/01/2020 9:29 AM CDT 12/01/2020 9:30 AM CDT Narrative Resulting Agency Comment RCR us Bruce Olea MD LAB GENETIC TESTING Final [facility] [address] [id number] [phone] documented in this encounter Visit Diagnoses Diagnosis Iron deficiency anemia due to chronic blood loss- Primary Iron deficiency anemia secondary to blood loss (chronic) DVT (deep venous thrombosis) (CMS/HCC) (HCC) Acute venous embolism and thrombosis of unspecified deep vessels of lower extremity documented in this encounter Orders Appointment Requests Count Last Ordered Date Fi rst Ordered Date ONCBCN CLINIC APPOINTMENT REQUEST 1 021 ONCBCN LAB APPOINTMENT 2 02/09/202112/01 documented in this encounter Care Teams Bituminous Paving Machine Operator Relationship Specialty Start Date End Date Starr Bran PA [address] [address] PCP - General Internal Medicine 12/30/18 documented as of this encounter
--- OUTSIDE RECORDS SUMMARY | 2024-07-18 20:36 | XMS_ITS | Encounter Summary ---
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
--- OUTSIDE RECORDS SUMMARY | 2024-07-18 20:36 | XMS_ITS | Encounter Summary ---
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
--- OUTSIDE RECORDS SUMMARY | 2024-07-18 20:37 | XMS_ITS | Encounter Summary ---
Author Organization [facility] Address [address] [place] [address] Care Team Providers Care Kettle Chipper Name Role Phone Starr Bran Primary Care Provider +1- [phone] Reason for Visit * Reason Comments Shortness of Breath Encounter Details Date Type Department Care Team (Late st Contact Info) Description 10/31/2020 1:45 PM CDT Office Visit [facility] Family Medicine [address] [place] [address] Starr Bran PA [address] [place] [address] SOB (shortness of breath) on exertion (Primary Dx); Obesity (BMI 30-39.9); BMI 35.0-35.9,adult Social History [...] on file 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 Gender Identity Female 02/02/2021 7:25 AM CDT Sexual Orientation Straight 02/02/2021 7: 25 AM CDT documented as of this encounter Last Filed Vital Signs Vital Sign Reading Time Taken Comments Blood Pressure 115/75 10/31/2020 2:29 PM CDT Pulse 98 10/31/2020 2:29 PM CDT Temperature 36.4 ??C (97.5 ??F) 10/31/2020 2:29 PM CD T Respiratory Rate - - Oxygen Saturation 96% 10/31/2020 2:29 PM CDT Inhaled Oxygen Concentration - - Weight 89.4 kg (197 lb 3.2 oz) 10/31/2020 2:29 P M CDT Height 159.8 cm (5' 2.91 ) 10/31/2020 2:29 PM CD T Body Mass Index 35.03 10/31/2020 2:29 PM CDT documented in this encounter Progress Notes * Starr Bran PA - 10/31/2020 1:45 PM CDT Images from the original note were not included. Subjective/Objective Patient ID: Viktoriya Bell is a 55 y.o. female. Chief Complaint Shortness of Breath HPI Patient presents for persistent SOB. Over the last week, she is now unable to even walk to the bathroom without being SOB. She is sitting in the office today and respirations are 24/min Denies fever, chills, sweats, rhionrrhea. Denies CP. Notes pain in the right lung, lower in the front and a sharp pain pushes to her back. In the last month was diagnosed with severe anemia --Hgb 4.6 Went to ER/Amitted. Was transfused. Discharge Hgb was 8.3. 10/[address] Schuler was 9.5 Colonoscopy was negative by Dr. Schuler She is scheduled for a capsule follow thru--- She denies any active s/s bleeding. Review of Systems Constitutional: Negative for fever. HENT: Negative for congestion. Respiratory: Negative for shortness of breath. Cardiovascular: Negative for chest pain. Gastrointestinal: Negative for constipation and diarrhea. Vitals: 10/31/20 1429 BP: 115/75 BP Location: Left arm Patient Position: Sitting Pulse: 98 Temp: 36.4 ??C (97.5 ??F) SpO2: 96% Weight: 89.4 kg (197 lb 3.2 oz) Height: 159.8 cm (5' 2.91 ) Physical Exam Vitals and nursing note reviewed. Constitutional: Appearance: She is well-developed. HENT: Head: Normocephalic and atraumatic. Eyes: Comments: Pupils are equal Cardiovascular: Rate and Rhythm: Normal rate and regular rhythm. Heart sounds: No murmur. Pulmonary: Effort: Pulmonary effort is normal. Tachypnea present. Breath sounds: Normal breath sounds. Abdominal: Palpations: Abdomen is soft. Tenderness: There is no abdominal tenderness. Skin: General: Skin is warm and dry. Findings: No rash. Neurological: Mental Status: She is alert and oriented to person, place, and time. Psychiatric: Comments: Patient appears worried. Assessment/Plan Diagnoses and all orders for this visit: SOB (shortness of breath) on exertion (R06.02) (Primary) Assessment & Plan: Persistent SOB that has increase over the [...] to call her to take her to [facility] now. Obesity (BMI 30-39.9) (E66.9) Assessment & Plan: [...] Plan Note - Starr Bran PA - 10/31/2020 2:52 PM CDT Associated Problem(s): PHAN (dyspnea on exertion) Persistent SOB that has increase over the [...] to call her to take her to [facility] now. * Assessment & Plan Note - Althea Meyer MA - 10/31/2020 2:31 PM CDTAssociated Problem(s): Obesity (BMI 30-39.9) (Resolved 11/15/2020) Obesity is unchanged. Discussed the patient's BMI. The BMI is above average. BMI management plan is completed. BMI Follow-up includes: nutrition counseling, exercise counseling and education provided. * Assessment & Plan Note - Althea Meyer MA - 10/31/2020 2:31 PM CDTAssociated Problem(s): BMI 35.0-35.9,adult (Resolved 11/15/2020) Obesity is unchanged. Discussed the patient's BMI. The BMI is above average. BMI management plan is completed. BMI Follow-up includes: nutrition counseling, exercise counseling and education provided. documented in this encounter Plan of Treatment Not on file documented as of this encounter Visit Diagnoses Diagnosis SOB (shortness of breath) on exertion- Primary Shortness of breath Obesity (BMI 30-39.9) BMI 35.0-35.9,adult documented in this encounter Historical Medications * This list may reflect changes made after this encounter. metoclopramide (REGLAN) 10 mg tablet Take 10 mg by mouth daily 10/26/2020 11/15/2020 omeprazole (PriLOSEC) 20 mg capsule Take 20 mg by mouth daily 10/12/2020 11/15/2020 added in this encounter Care Teams Kettle Chipper Relationship Specialty Start Date End Date Starr Bran PA [facility] [address] PCP - General Internal Medicine 12/30/18 documented as of this encounter
--- OUTSIDE RECORDS SUMMARY | 2024-07-18 20:37 | XMS_ITS | Encounter Summary ---
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
--- OUTSIDE RECORDS SUMMARY | 2024-07-18 20:37 | XMS_ITS | Encounter Summary ---
Author Organization [facility] Address [address] [place] [address] Care Team Providers Care Staple Side Laster Name Role Phone Starr Bran Primary Care Provider +1- [phone] Reason for Visit * Reason Comments Injections Vitamin B Encounter Details Date Type Department Care Team (Latest Contact Info) Description 11/04/2020 11:30 AM CDT Clinical Support 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 Gender Identity Female 02/02/2021 7:25 AM CDT Sexual Orientation Straight 02/02/2021 7: 25 AM CDT documented as of this encounter Plan of Treatment Not on file documented as of this encounter Visit Diagnoses Diagnosis Vitamin D deficiency- Primary documented in this encounter Administered Medications Inactive Administered Medications - up to 3 most recent administrations Medication Order MAR Action Action Date Dose Rate Site cyanocobalamin (Vitamin B-12) injection 1,000 mcg 1,000 mcg, intramuscular, Once, On Sat11/04/20 at 1215, For 1 doseIndications:Vitamin D deficiency Given 11/04/2020 11:31 AM CDT 1,000 mcg Right Deltoid documented in this encounter Care Teams Staple Side Laster Relationship Specialty Start Date End Date Starr Bran PA [address] [address] [address] [place] [address] PCP - General Internal Medicine 12/30/18 documented as of this encounter
--- OUTSIDE RECORDS SUMMARY | 2024-07-18 20:37 | XMS_ITS | Encounter Summary ---
Author Organization [facility] Address [address] [place] [address] Care Team Providers Care Automatic Vulcanizing Operator Name Role Phone Starr Bran Primary Care Provider [phone]- [phone] Encounter Details Date Type Department Care Team (Late st Contact Info) Description 11/03/[address] 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 SOB is better. Discussed her stay Patient discharged 11/03/2020 Sent home on Eliquis. Understands 10mg bid x 7 days total then change to 5mg bid. Still anemic -- Recvd 2units PRBC in house. Hemoglobin on 11/03 was 10. She will set up iron infusions as outpatient with [facility] Will monitor H/H Awaiting clotting workup results also. --B12 deficiency (b12 less than 150). Was started on B12 IM in house. Had 3 days of injections. She is to take 1,000mcg daily x 7days 1,000mcg MWF x 1 week 1,000mcg Weekly x 4-5 weeks then may go monthly. Capsule Endoscopy - Followup with Dr. Schuler Results are pending. She will set up followup with him. Patient instructed to come in for B12 today as she wasn't taught to do it. * Telephone Encounter - Starr Bran PA - 11/03/2020 11:05 AM CDT Patient was sent to ER on 10/31/2020 from the office for SOB. Admit: 10/31/2020 Discharge: Dx: SOB, PE, Right LE DVT, Anemia Consult: GI - Dr. Schuler/Dr. Immanuel Wyatt Vascular - Dr. Aguirre Heme/ONC - Dr. Olea/Dr Orr (B) Pulmonary Embolism/DVT --started on Heparin Drip, preparing to transition to Eliquis 10mg bid x7 days then 5mg bid. Anemia -- Capsule followthru being done 11/03/2020. documented in this encounter Plan of Treatment Not on file documented as of this encounter Visit Diagnoses Not on filedocumented in this encounter Care Teams Automatic Vulcanizing Operator Relationship Specialty Start Date End Date Starr Bran PA [address] [facility] [address] [address] [address] [place] [address] PCP - General Internal Medicine 12/30/18 documented as of this encounter
--- OUTSIDE RECORDS SUMMARY | 2024-07-18 20:37 | XMS_ITS | Encounter Summary ---
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 Gender Identity Female 02/02/2021 7:25 AM CDT Sexual Orientation Straight 02/02/2021 7: 25 AM CDT documented as of this encounter Last Filed Vital Signs Vital Sign Reading Time Taken Comments Blood Pressure 146/81 11/01/2020 4:05 PM CDT Pulse 82 11/01/2020 4:05 PM CDT Temperature 36.5 ??C (97.7 ??F) 11/01/2020 4:05 PM CD T Respiratory Rate - - Oxygen Saturation 98% 11/01/2020 4:05 PM CDT Inhaled Oxygen Concentration - - Weight 89.3 kg (196 lb 14 oz) 11/01/2020 4:05 PM CDT Height 160 cm (5' 3 ) 11/01/2020 4:05 PM CDT Body Mass Index 34.87 11/01/2020 4:05 PM CDT documented in this encounter Medications at Time of Discharge multivitamin tablet daily apixaban (ELIQUIS) 5 mg tablet Take 5 mg by mouth every 12 (twelve) hours 11/02/2020 1 ferrous sulfate 325 mg (65 mg of elemental iron) tablet Take 1 tablet (325 mg total) by mouth 2 (two) times a day 60 tablet 2 10/27/2020 1 lisinopriL (PRINIVIL,ZESTRI L) 10 mg tablet Take 1 tablet (10 mg total) by mouth daily 90 tablet 3 10/09/2020 1 medroxyPROGESTER one (DEPO-PROVERA) 400 mg/mL suspension Inject 400 mg/mL into the muscle as instructed 1 metoclopramide (REGLAN) 10 mg tablet Take 10 mg by mouth daily 10/26/2020 1 omeprazole (PriLOSEC) 20 mg capsule Take 20 mg by mouth daily 10/12/2020 1 documented as of this encounter Discharge Disposition Disposition Code Departure Means Destination Discharge to home or self care documented in this encounter Plan of Treatment Pending Results Name Type Priority Associated Diagnoses Date /Time Cardiolipin antibody, IgA Lab Routine 11/01/2020 4:37 PM CDT Lupus anticoagulant Lab Routine 11/01 4:37 PM CDT documented as of this encounter Procedures Procedure Name Priority Date/Time Associated Diagnosis Comments SCAN - LABS 11/04/2020 12:00 AM CDT HEPARIN ANTI FACTOR XA ACTIVITY Routine 11/03/2020 6:11 AM CDT CBC WITH AUTO DIFFERENTIAL Routine 11/03/2020 6:11 AM CDT BASIC METABOLIC PANEL Routine 11/03/2020 6:11 AM CDT PARIETAL CELL ANTIBODY, IGG Routine 11/02/2020 9:55 AM CDT ANTIBODY SCREEN Routine 11/02/2020 8:14 AM CDT TYPE AND SCREEN Routine 11/02/2020 8:14 AM CDT RBC TRANSFUSION ORDER Routine 11/02/2020 8:10 AM CDT HEPARIN ANTI FACTOR XA ACTIVITY Routine 11/02/2020 5:32 AM CDT CBC WITH AUTO DIFFERENTIAL Routine 11/02/2020 5:32 AM CDT BASIC METABOLIC PANEL Routine 11/02/2020 5:[address] ABDOMEN PELVIS W CONTRAST 11/02/2020 12:00 AM CDT HEPARIN ANTI FACTOR XA ACTIVITY Routine 11/01/2020 11:14 PM CDT BETA 2 GLYCOPROTEIN ANTIBODY, IGG, IGM Routine 11/01/2020 4:37 PM CDT IRON PROFILE W/ IBC Routine 11/01/2020 4 :37 PM CDT HEPARIN ANTI FACTOR XA ACTIVITY Routine 11/01/2020 4:37 PM CDT BETA-2 GLYCOPROTEIN I AB, IGG, IGA, IGM Routine 11/01/2020 4:37 PM CDT MISCELLANEOUS LAB TEST Routine 4:37 PM CDT CARDIOLIPIN ANTIBODY, IGA Routine 11/01/2020 4:37 PM CDT LUPUS ANTICOAGULANT Routine 11/01/2020 4 :37 PM CDT CARDIOLIPIN ANTIBODY, IGG AND IGM Routine 11/01/2020 4:37 PM CDT FACTOR V LEIDEN Routine 11/01/2020 4:37 PM CDT TRANSFERRIN Routine 11/01/2020 4:37 PM CDT FOLATE Routine 11/01/2020 4:37 PM CDT FERRITIN Routine 11/01/2020 4:37 PM CDT VITAMIN B12 Routine 11/01/2020 4:37 PM CDT HEPARIN ANTI FACTOR XA ACTIVITY Routine 11/01/2020 9:49 AM CDT TRANSTHORACIC ECHO (TTE) COMPLETE W DOPPLER/CF 11/01/2020 8:20 AM CDT CBC WITH AUTO DIFFERENTIAL Routine 11/01/2020 4:03 AM CDT APTT Routine 11/01/2020 4:03 AM CDT PROTIME-INR Routine 11/01/2020 4:03 AM CDT BASIC METABOLIC PANEL Routine 11/01/2020 4:03 AM CDT CTA CHEST W IV CONTRAST - PE 11/01/2020 12:00 AM CDT CARDIOLOGY REPORT 11/01/2020 12: 00 AM CDT US VEIN DUPLEX LOWER EXTREMITY BILATERAL COMPLETE 11/01/2020 12:00 AM CDT URINALYSIS, COMPLETE W/REFLEX TO CULTURE Routine 10/31/2020 5:20 PM CDT URINALYSIS AND REFLEX TO MICROSCOPIC AND CULTURE Routine 10/31/2020 5:20 PM CDT URINE CULTURE Routine 10/31/2020 5:20 PM CDT ECG 12-LEAD 10/31/2020 5:01 PM CDT SEPSIS LACTATE Routine 10/31/2020 4:15 PM CDT CBC WITH AUTO DIFFERENTIAL Routine 10/31/2020 4:15 PM CDT TROPONIN I Routine 10/31/2020 3:40 PM CDT B-TYPE NATRIURETIC PEPTIDE Routine 10/31/2020 3:26 PM CDT COMPREHENSIVE METABOLIC PANEL Routine 10/31/2020 3:26 PM CDT XR CHEST 1 VIEW 10/31/2020 12:00 AM CDT documented in this encounter Results * SCAN - LABS (11/04/2020 12:00 AM CDT) Narrative 11/04/2020 12:00 AM CDT Ordered by an unspecified provider. us Historical Provider MD Final Res ult * (ABNORMAL) Basic metabolic panel (11/03/2020 6:11 AM CDT) Sodium 144 135 - 145 mmol/L [facility] Potassium 3.7 3.3 - 5.1 mmol/L [facility] Chloride 110(H) 96 - 108 mmol/L [facility] Carbon Dioxide 22 22 - 32 mmol/L [facility] Anion Gap 12 7 - 16 [facility] Glucose 104(H) 70 - 100 mg/dL [facility] BUN 5(L) 8 - 25 mg/dL [facility] Creatinine 0.5 0.5 - 1.1 mg/dL [facility] Comment: NOTE: Estimated GFR (Cockroft-Gault) will NOT be calculated unless patient Height and Weight were entered. Also, Kidney Disease Stage (GFR) and Estimated GFR (Cockroft-Gault) will NOT be calculated if Creatinine result is <0.2. Kidney Disease Stage >90 mL/MIN [facility] Comment: NOTE; ??The GFR is an estimated value using the creatinine, sex, age, and race of the patient. THE Estimated Kidney Disease GFR is validated for AGES 18-70 YEARS STAGE ?mL/Min ?DESCRIPTION ??1 ?90 mL/min or more ?Normal or elevated GFR ??2 ? 60-89 mL/min ?Mildly decreased GFR ??3 ? 30-59 mL/min ?Moderately decreased GFR ??4 ? 15-29 mL/min ?Severely decreased GFR ??5 ? <15 mL/min ? Kidney failure or on dialysis Est GFR (Cockcroft-G) 133 ml/MIN [facility] Comment: Estimated GFR(Cockroft-Gault)is used to calculate patient medication dosage Calcium 9.8 8.6 - 10.3 mg/dL [facility] 11/03/2020 6:11 AM CDT 11/03/2020 6:19 AM CDT Narrative Resulting Agency Comment IN us Yi Galeano MD LAB BLOOD ORDERABLES Final Result [facility] [address] [place] [address], [facility] [phone] * (ABNORMAL) CBC with auto differential (11/03/2020 6:11 AM CDT) WBC 6.4 3.8 - 9.9 X10 3/ul [facility] RBC 3.46(L) 3.90 - 5.20 x10 6/ul [facility] Comment: Results reviewed Hemoglobin 10.0(L) 11.9 - 15.5 g/dL [facility] Comment: Results reviewed Hct 31.0(L) 35.6 - 45.5 % [facility] MCV 89.6 81.3 - 96.4 fl [facility] MCH 28.9 27.1 - 33.3 pg [facility] MCHC 32.3 32.3 - 35.7 g/dl [facility] RDW 23.0(H) 11.1 - 14.9 % [facility] Plt Count 210 150 - 400 x10 3/ul [facility] MPV 9.7 9.1 - 12.3 fl [facility] Neut % 69.8 % [facility] Immature Gran % 0.5 % [facility] Lymph % 19.0 % [facility] Linn % 6.5 % [facility] Eos % 3.4 % [facility] AUTO BASO % 0.8 % [facility] NEUTROPHIL ABS # 4.5 1.7 - 6.5 x10 3/ul [facility] Immature Gran # 0.0 0.0 - 0.1 x10 3/ul [facility] Absolute Lymphs (auto) 1.2 0.8 - 3.3 x10 3/ul [facility] Absolute Monos (auto) 0.4 0.2 - 0.8 x10 3/ul [facility] Absolute Eos (auto) 0.2 0.0 - 0.5 x10 3/ul [facility] BASOPHIL ABS # 0.1 0.0 - 0.1 x10 3/ul [facility] Nucleat RBC Rel Count 0.3 #/100WBC [facility] NRBC abs 0.02(H) 0.00 - 0.01 x10 3/ul [facility] Absolute Neutrophils 4,500 200 - 8,000 /ul [facility] 11/03/2020 6:11 AM CDT 11/03/2020 6:19 AM CDT Narrative Resulting Agency Comment IN Maryanne Smalls NP LAB BLOOD ORDERABLES Final Result Performing Organization Address [facility] Co de Phone Number [address] [phone] * Heparin anti factor Xa activity (11/03/2020 6:11 AM CDT) Pathologist [facility] Heparin Chromogenic 0.46 0.30 - 0.70 IU/mL [facility] Comment: Anti-factor Xa is used to monitor unfractionated Heparin in weight-based Heparin therapy. ??At [facility], anti-factor Xa cannot be used to monitor Low Molecular Weight Heparin. ??If Low Molecular Weight Heparin monitoring is desired, please order LMWH and notify Heme at extension [phone]. 11/03/2020 6:11 AM CDT 11/03/2020 6:19 AM CDT Narrative [facility] - 11/03/2020 6:36 AM CDT Is patient on IV unfractionated heparin Y Resulting Agency Comment IN Immanuel Wyatt MD LAB BLOOD ORDERABLES Final Resul t Performing Organization Address City/[facility] Co de Phone Number [address] [phone] * (ABNORMAL) Parietal cell antibody, IgG (11/02/2020 9:55 AM CDT) Pathologist [facility] Anti-Parietal Cell Ab 49.4(A) 0.0 - 24.9 Units [facility] [employer] Comment: In the context of vitamin B12 deficiency, the presence of gastric parietal cell antibodies (TEACHER OF THE HANDICAPPED) and/or intrinsic factor antibodies in association with macrocytic anemia is considered diagnostic for pernicious anemia (PA). However, the presence of gastric animal physiologist alone is not specific for PA. Gastric animal physiologist may occur with increased frequency in unaffected family members, a small percentage of healthy individuals, and patients with other autoimmune diseases, such as autoimmune thyroiditis. INTERPRETIVE INFORMATION: Gastric Parietal Cell Antibody, IgG 0.0-20.0 Units: Negative 20.1-24.9 Units: Equivocal 25.0 Units or greater: Positive Performed By: [employer] [address] [place] [address] Diplomatic Interpreter/Translator: Kelley Joseph MD 11/02/2020 9:55 AM CDT 11/02/2020 10:06 AM CDT Narrative Resulting Agency Comment IN Maryanne Smalls NP LAB BLOOD ORDERABLES Final Result Performing Organization Address [facility] Co de Phone Number [facility] [address] [phone] * Antibody screen (11/02/2020 8:14 AM CDT) Antibody Screen NEGATIVE [facility] 11/02/2020 8:14 AM CDT 11/02/2020 8:20 AM CDT Narrative Resulting Agency Comment IN Yi Galeano MD LAB BLOOD BANK TEST ORDERA BLES Final Result Performing Organization Address [facility]/ZIP Co de Phone Number [facility] [address] [phone] * Type and screen (11/02/2020 8:14 AM CDT) Blood Type ABP [facility] 11/02/2020 8:14 AM CDT 11/02/2020 8:20 AM CDT Narrative Resulting Agency Comment IN Yi Galeano MD LAB BLOOD BANK TEST ORDERA BLES Final Result Performing Organization Address City/[facility]/ZIP Co de Phone Number [facility] [address] [place] [address], [facility] [phone] * RBC TRANSFUSION ORDER (11/02/2020 8:10 AM CDT) Pathologist [facility] RBC TRANSFUSION ORDER [id number] ABN RBCORDER TRANSFUSED 11/02/20 1204 [id number] ABP RBCORDER TRANSFUSED 11/02/20 1642 [facility] 11/02/2020 8:10 AM CDT 11/02/2020 8:36 AM CDT Narrative Resulting Agency Comment IN us Yi Galeano MD LAB BLOOD ORDERABLES Final Result [id number] [place] [address], [facility] [phone] * (ABNORMAL) Basic metabolic panel (11/02/2020 5:32 AM CDT) [facility] Sodium 141 135 - 145 mmol/L [facility] Potassium 3.5 3.3 - 5.1 mmol/L [facility] Chloride 108 96 - 108 mmol/L [facility] Carbon Dioxide 23 22 - 32 mmol/L [facility] Anion Gap 10 7 - 16 [facility] Glucose 103(H) 70 - 100 mg/dL [facility] BUN 7(L) 8 - 25 mg/dL [facility] Creatinine 0.5 0.5 - 1.1 mg/dL [facility] Comment: NOTE: Estimated GFR (Cockroft-Gault) will NOT be calculated unless patient Height and Weight were entered. Also, Kidney Disease Stage (GFR) and Estimated GFR (Cockroft-Gault) will NOT be calculated if Creatinine result is <0.2. Kidney Disease Stage >90 mL/MIN [facility] Comment: NOTE; ??The GFR is an estimated value using the creatinine, sex, age, and race of the patient. THE Estimated Kidney Disease GFR is validated for AGES 18-70 YEARS STAGE ?mL/Min ?DESCRIPTION ??1 ?90 mL/min or more ?Normal or elevated GFR ??2 ? 60-89 mL/min ?Mildly decreased GFR ??3 ? 30-59 mL/min ?Moderately decreased GFR ??4 ? 15-29 mL/min ?Severely decreased GFR ??5 ? <15 mL/min ? Kidney failure or on dialysis Est GFR (Cockcroft-G) 133 ml/MIN [facility] Comment: Estimated GFR(Cockroft-Gault)is used to calculate patient medication dosage Calcium 9.5 8.6 - 10.3 mg/dL [facility] 11/02/2020 5:32 AM CDT 11/02/2020 6:39 AM CDT Narrative Resulting Agency Comment IN Ellie Torres MD LAB BLOOD ORDERABL ES Final Result [facility] [address] [place] [address], [facility] [phone] * (ABNORMAL) CBC with auto differential (11/02/2020 5:32 AM CDT) WBC 5.5 3.8 - 9.9 X10 3/ul [facility] Comment: Results reviewed RBC 2.40(L) 3.90 - 5.20 x10 6/ul [facility] Comment: Results reviewed Hemoglobin 6.9(LL) 11.9 - 15.5 g/dL [facility] Comment: Results reviewed CRITICAL VALUE CALLED and REPEATED. at:0654 11/02/20 by:Michelle Jacobo to:KYLE [id number] Hct 22.6(L) 35.6 - 45.5 % [facility] MCV 94.2 81.3 - 96.4 fl [facility] MCH 28.8 27.1 - 33.3 pg [facility] MCHC 30.5(L) 32.3 - 35.7 g/dl [facility] RDW 28.3(H) 11.1 - 14.9 % [facility] Plt Count 194 150 - 400 x10 3/ul [facility] MPV 10.1 9.1 - 12.3 fl [facility] Neut % 69.4 % [facility] Immature Gran % 0.4 % [facility] Lymph % 20.0 % [facility] Linn % 6.3 % [facility] Eos % 3.2 % [facility] AUTO BASO % 0.7 % [facility] NEUTROPHIL ABS # 3.8 1.7 - 6.5 x10 3/ul [facility] Immature Gran # 0.0 0.0 - 0.1 x10 3/ul [facility] Absolute Lymphs (auto) 1.1 0.8 - 3.3 x10 3/ul [facility] Absolute Monos (auto) 0.4 0.2 - 0.8 x10 3/ul [facility] Absolute Eos (auto) 0.2 0.0 - 0.5 x10 3/ul [facility] BASOPHIL ABS # 0.0 0.0 - 0.1 x10 3/ul [facility] Nucleat RBC Rel Count 0.4 #/100WBC [facility] NRBC abs 0.02(H) 0.00 - 0.01 x10 3/ul [facility] Absolute Neutrophils 3,800 200 - 8,000 /ul [facility] 11/02/2020 5:32 AM CDT 11/02/2020 6:39 AM CDT Narrative Resulting Agency Comment IN us Ellie Torres MD LAB BLOOD ORDERABL ES Final Result Performing Organization Address [facility] [place] [address], [facility] [phone] * Heparin anti factor Xa activity (11/02/2020 5:32 AM CDT) Heparin Chromogenic 0.57 0.30 - 0.70 IU/mL [facility] Comment: Anti-factor Xa is used to monitor unfractionated Heparin in weight-based Heparin therapy. ??At [facility], anti-factor Xa cannot be used to monitor Low Molecular Weight Heparin. ??If Low Molecular Weight Heparin monitoring is desired, please order LMWH and notify Heme at extension [phone]. 11/02/2020 5:32 AM CDT 11/02/2020 6:39 AM CDT Narrative [facility] - 11/02/2020 6:52 AM CDT Is patient on IV unfractionated heparin Y Resulting Agency Comment IN Anthony Cruz MD LAB BLOOD ORDERABLES Final Result Performing Organization Address [facility] [place] [address], [facility] [phone] * CT Abdomen Pelvis W Contrast (11/02/2020 12:00 AM CDT) Anatomical Region Laterality Modality Body N/A Computed Tomogra phy 11/02/2020 8:12 AM CDT Narrative 11/02/2020 8:17 AM CDT Patient Name: VIKTORIYA CUTLER R ?Ordering Dr: Ellie Torres MD ?? D.O.B: 1965 ? Exam Date: 11/02/20 ?? 0000 ?? Age: 55 ?Sex: Female ? MR#: [id number] ?? Loc: ??S204-02 ? RADIOLOGY REPORT ?? Order #[id number] ?? CT Scan ? CT Abd/Pelvis W IV Contrast ? Signed ?? EXAM DESCRIPTION: ?? CT Abd/Pelvis W IV Contrast ? REASON FOR STUDY: ?? For assessment of a mass, anemia, history of pulmonary ?? embolism, follow-up from approximately 1 month earlier. ? TECHNIQUE: ??CT scan of the abdomen and pelvis performed with intravenous and ? with oral contrast using helical scanning technique with dynamic intravenous ?? contrast injection. Reconstructed coronal and sagittal MPR images reviewed. ?? All images stored on PACS. ? Automated exposure control was used as a dose optimization technique for this ?? examination. ? CONTRAST TYPE/DOSE: ??100 mL unspecified contrast via the right antecubital ?? vein, if the contrast type can be provided, this can be added as an addendum. ? COMPARISON: ??09/29/2020. ??Correlation is made with a CT angiogram chest ?? 11/01/2020. ? FINDINGS: ? LOWER CHEST: ??Small area of ovoid opacity in the right lower lobe with central ?? clearance in correlating with the chest CT appears to represent an area of ?? involving pulmonary infarction. ??There is a similar area of opacity in the ?? anterior right lower lobe. ??This is similar to the recent chest CT. ??No ?? pleural effusion. ??Lower lobe pulmonary emboli are again seen. ? LIVER: ??No focal hepatic lesion. ? GALLBLADDER: ??No gallstones or inflammatory change are seen. ? BILE DUCTS: ??No biliary ductal dilation. ? SPLEEN: ??Spleen size is normal with no focal lesions. ? PANCREAS: ??No pancreatic mass or inflammatory change. ? ADRENALS: ??Normal ? KIDNEYS/URINARY TRACT: ??No renal calculi. ??No ureteral calculi. ??There is no ?? hydronephrosis or hydroureter. ??There is small amount of fluid present urinary ?? bladder. ? GI: ??Oral contrast has progressed through the small bowel well into the colon. ?The terminal ileum is normal. ??The appendix is normal. ??Stomach and duodenum ?? are normal. ??There is no abnormal bowel wall thickening. ??No pneumatosis is ?? seen. ? PERITONEUM: ??No ascites or free air is identified. ??There is no mesenteric ?? mass or lymphadenopathy. ? RETROPERITONEUM: ??No retroperitoneal mass or lymphadenopathy is seen. ? REPRODUCTIVE: ??No significant abnormalities. ??Unchanged slightly globular ?? contour of the uterus, possibly with uterine fibroids. ??No adnexal mass. ? VASCULATURE: ??Abdominal aorta is nonaneurysmal. ? MUSCULOSKELETAL: ??Bone windows demonstrate no acute or aggressive osseous ?? abnormality. 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 ? OTHER: ??No other abnormality. ? IMPRESSION: ? 1. ??No acute abnormality of the abdomen and pelvis. ? 2. 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 ? 3. ??Unchanged morphology of the uterus possibly with uterine fibroid, this ?? could be correlated with a nonemergent outpatient routine pelvic ultrasound if ?? needed. ? THIS IS AN ELECTRONICALLY VERIFIED FINAL REPORT ?? 11/02/2020 8:17 AM - Electronically signed by Gregorio Gore M.D. ?? Gregorio Gore M.D. ? CH ?? D: ??11/02/2020 8:17 AM ?? T: ? Report ID: [id number] ?? Reading Location: ??[id number] ? REPORT ELECTRONICALLY SIGNED IN OTHER VENDOR SYSTEM ?? Resulting Agency Comment I Procedure Note Gregorio Gore Jr., MD - 11/02/2020 Patient Name: VIKTORIYA CUTLER Dr: Ellie Torres MD, D.O.B: 1965 Exam Date: 11/02/20 0000 Age: 55 Sex: Female MR#: [id number] Loc: S204 RADIOLOGY REPORT Order #[id number] CT Scan CT Abd/Pelvis W IV Contrast Signed EXAM DESCRIPTION: CT Abd/Pelvis W IV Contrast REASON FOR STUDY: For assessment of a mass, anemia, history ofpulmonary embolism, follow-up from approximately 1 month earlier. TECHNIQUE: CT scan of the abdomen and pelvis performed with intravenousand with oral contrast using helical scanning technique with dynamicintravenous contrast injection. Reconstructed coronal and sagittal MPR imagesreviewed. All images stored on PACS. Automated exposure control was used as a dose optimization technique forthis examination. CONTRAST TYPE/DOSE: 100 mL unspecified contrast via the rightantecubital vein, if the contrast type can be provided, this can be added as anaddendum. COMPARISON: 09/29/2020. Correlation is made with a CT angiogram chest 11/01/2020. FINDINGS: LOWER CHEST: Small area of ovoid opacity in the right lower lobe withcentral clearance in correlating with the chest CT appears to represent an areaof involving pulmonary infarction. There is a similar area of opacity inthe anterior right lower lobe. This is similar to the recent chest CT. No pleural effusion. Lower lobe pulmonary emboli are again seen. LIVER: No focal hepatic lesion. GALLBLADDER: No gallstones or inflammatory change are seen. BILE DUCTS: No biliary ductal dilation. SPLEEN: Spleen size is normal with no focal lesions. PANCREAS: No pancreatic mass or inflammatory change. ADRENALS: Normal KIDNEYS/URINARY TRACT: No renal calculi. No ureteral calculi. There isno hydronephrosis or hydroureter. There is small amount of fluid presenturinary bladder. GI: Oral contrast has progressed through the small bowel well into thecolon. The terminal ileum is normal. The appendix is normal. Stomach andduodenum are normal. There is no abnormal bowel wall thickening. No pneumatosisis seen. PERITONEUM: No ascites or free air is identified. There is nomesenteric mass or lymphadenopathy. RETROPERITONEUM: No retroperitoneal mass or lymphadenopathy is seen. REPRODUCTIVE: No significant abnormalities. Unchanged slightly globular contour of the uterus, possibly with uterine fibroids. No adnexal mass. VASCULATURE: Abdominal aorta is nonaneurysmal. MUSCULOSKELETAL: Bone windows demonstrate no acute or aggressive osseous abnormality. 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 OTHER: No other abnormality. IMPRESSION: 1. No acute abnormality of the abdomen and pelvis. 2. 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 3. Unchanged morphology of the uterus possibly with uterine fibroid,this could be correlated with a nonemergent outpatient routine pelvicultrasound if needed. THIS IS AN ELECTRONICALLY VERIFIED FINAL REPORT 11/02/2020 8:17 AM - Electronically signed by Gregorio Gore M.D. T: Report ID: [id number] Reading Location: [place] [address] REPORT ELECTRONICALLY SIGNED IN OTHER VENDOR SYSTEM Ellie Torres MD [facility] CT PROCEDURES Final Result * Heparin anti factor Xa activity (11/01/2020 11:14 PM CDT) Heparin Chromogenic 0.53 0.30 - 0.70 IU/mL [facility] Comment: Anti-factor Xa is used to monitor unfractionated Heparin in weight-based Heparin therapy. ??At [facility], anti-factor Xa cannot be used to monitor Low Molecular Weight Heparin. ??If Low Molecular Weight Heparin monitoring is desired, please order LMWH and notify Heme at extension [phone]. 11/01/2020 11:1 4 PM CDT 11/01/2020 11:21 PM CDT Narrative [facility] - 11/01/2020 11:45 PM CDT Is patient on IV unfractionated heparin Y Resulting Agency Comment IN us Moiz Conrad MD LAB BLOOD ORDERABLES Final R esult Performing Organization Address City/[facility]/ZIP Co de Phone Number [facility] [address] [place] [address], [facility] [phone] * Beta-2 glycoprotein I Ab, IgG, IgA, IgM (11/01/2020 4:37 PM CDT) [facility] Beta-2-GPI IgA Ab 3 0 - 20 TAMMY [facility] Comment: Performed By: [facility] [address] [place] [address] Diplomatic Interpreter/Translator: Kelley Joseph MD 11/01/2020 4:37 PM CDT 11/01/2020 4:55 PM CDT Narrative Resulting Agency Comment IN us Bruce Saab MD LAB BLOOD ORDERABLES Final Res ult [facility] [address] [place] [address], [facility] [phone] * Beta 2 glycoprotein antibody, IgG, IgM (11/01/2020 4:37 PM CDT) Pathologist [facility] Beta-2-GPI IgG Ab 0 0 - 20 [facility] Beta-2-GPI IgM Ab 6 0 - 20 [facility] Comment: INTERPRETIVE INFORMATION: [id number] I, IgG and IgM Antibody The persistent presence of IgG and/or IgM beta 2 glycoprotein I (B2GPI) antibodies (greater than 99th percentile) is a laboratory criterion for the diagnosis of antiphospholipid syndrome (APS). Persistence is defined as moderate or high levels of IgG and/or IgM B2GPI antibodies detected in two or more specimens drawn at least 12 weeks apart (J Throm Haemost. 2006;4:295-306). B2GPI results greater than 20 [facility] (IgG) and/or [facility] (IgM) are considered positive based on the cutoff values established for this test. International reference materials and consensus units for anti-B2GPI antibodies have not been established (Clin Nora Acta. 2012;413(1-2):358-60; Arthritis Rheum. 2012;64(1):1-10.). Strong clinical correlation is recommended for a diagnosis of APS. Low positive IgG and IgM B2GPI antibody levels should be interpreted in light of APS-specific clinical manifestations and/or other criteria phospholipid antibody tests. 11/01/2020 4:37 PM CDT 11/01/2020 4:55 PM CDT Narrative Resulting Agency Comment IN Bruce Saab MD LAB BLOOD ORDERABLES Final Res ult [facility] [address] [place] [address], [facility] [phone] * Cardiolipin antibody, IgG and IgM (11/01/2020 4:37 PM CDT) Cardiolipid IgG Ab 2 0 - 14 GPL [facility] Comment: INTERPRETIVE INFORMATION: Anti-Cardiolipin IgG Ab 0-14 GPL: Negative 15-19 GPL: Indeterminate 20-80 GPL: Low to Moderately Positive 81 GPL or above: High Positive The persistent presence of IgG and/or IgM cardiolipin (CL) antibodies in moderate or high levels (greater than 40 GPL and/or greater ??than 40 MPL units or greater than 99th percentile) is a laboratory criterion for the diagnosis of antiphospholipid syndrome (APS). Persistence is defined as moderate or high levels of IgG and/or IgM CL antibodies detected in two or more specimens drawn at least 12 weeks apart (J Throm Haemost. 2006;4:295-306). Lower positive levels of IgG and/or IgM CL antibodies (above cutoff but less than 40 GPL and/or less than 40 MPL units) may occur in patients with the clinical symptoms of APS; therefore, the actual significance of these levels is undefined. Results should not be used alone for diagnosis and must be interpreted in light of APS-specific clinical manifestations and/or other criteria phospholipid antibody tests. Cardiolipid IgM Ab 9 0 - 12 MPL [facility] Comment: INTERPRETIVE INFORMATION: Anti-Cardiolipin IgM 0-12 MPL: Negative 13-19 MPL: Indeterminate 20-80 MPL: Low to Moderately Positive 81 MPL or above: High Positive The persistent presence of IgG and/or IgM cardiolipin (CL) antibodies in moderate or high levels (greater than 40 GPL and/or greater than 40 MPL units or greater than 99th percentile) is a laboratory criterion for the diagnosis of antiphospholipid syndrome (APS). Persistence is defined as moderate or high levels of IgG and/or IgM CL antibodies detected ??in two or more specimens drawn at least 12 weeks apart (J Throm Haemost. 2006;4:295-306). Lower positive levels of IgG and/or IgM CL antibodies (above cutoff but less than 40 GPL and/or less than 40 MPL units) may occur in patients with the clinical symptoms of APS; therefore, the actual significance of these levels is undefined. Results should not be used alone for diagnosis and must be interpreted in light of APS-specific clinical manifestations and/or other criteria phospholipid antibody tests. Performed By: [facility] [address] [place] [address] Diplomatic Interpreter/Translator: Kelley Joseph MD 11/01/2020 4:37 PM CDT 11/01/2020 4:55 PM CDT Narrative Resulting Agency Comment IN us Bruce Saab MD LAB BLOOD ORDERABLES Final Res ult [facility] [address] [place] [address], [facility] [phone] * Factor V Leiden (11/01/2020 4:37 PM CDT) [facility] APC Resistance Profile 3.34 >=2.00 [facility] Comment: TEST INTERPRETATION: ??APC Resistance Profile Ratios less than 2.00 suggest APC resistance. This method uses factor V deficient plasma; therefore, APC resistance due to a nonfactor V mutation will not be detected. Extreme factor V deficiency may cause abnormal ratio. Performed By: [facility] [address] [place] [address] Diplomatic Interpreter/Translator: Kelley Joseph MD, MS 11/01/2020 4:37 PM CDT 11/01/2020 4:55 PM CDT Narrative Resulting Agency Comment IN Anthony Cruz MD LAB BLOOD ORDERABLES Final Result Performing Organization Address [facility]/ZIP Co de Phone Number [address] [phone] * Transferrin (11/01/2020 4:37 PM CDT) Pathologist [facility] TRANSFERRIN, SERUM 220 200 - 400 mg/dL [facility] Comment: Performed By: [facility] [address] [place] [address] Diplomatic Interpreter/Translator: Kelley Joseph MD 11/01/2020 4:37 PM CDT 11/01/2020 4:55 PM CDT Narrative Resulting Agency Comment IN Bruce Saab MD LAB BLOOD ORDERABLES Final Res ult Performing Organization Address [facility] de Phone Number [address] [phone] * (ABNORMAL) Vitamin B12 (11/01/2020 4:37 PM CDT) Pathologist [facility] Vitamin B12 <150(L) 230 - 1,250 pg/mL [facility] 11/01/2020 4:37 PM CDT 11/01/2020 4:55 PM CDT Narrative Resulting Agency Comment IN Bruce Saab MD LAB BLOOD ORDERABLES Final Res ult Performing Organization Address City/[facility]/ZIP Co de Phone Number [address] [address], [facility] [phone] * Folate (11/01/2020 4:37 PM CDT) Folate 11.7 ng/mL [facility] Comment: Reference Range ??> 5.0 ng/mL Folate has been standardized against the WHO International Standard BS code: 11/01/2020 4:37 PM CDT 11/01/2020 4:55 PM CDT Narrative Resulting Agency Comment IN Bruce Saab MD LAB BLOOD ORDERABLES Final Res ult Performing Organization Address [facility]/ZIP Co de Phone Number [address] [phone] * Ferritin (11/01/2020 4:37 PM CDT) Ferritin 44.0 15.0 - 150.0 ng/mL [facility] 11/01/2020 4:37 PM CDT 11/01/2020 4:55 PM CDT Narrative [facility] - 11/01/2020 5:32 PM CDT Comment Send ferritin with the other labs ordered including ?iron studies. Resulting Agency Comment IN Bruce Saab MD LAB BLOOD ORDERABLES Final Res ult Performing Organization Address [facility] [place] [address], [facility] [phone] * (ABNORMAL) Iron profile w/ IBC (11/01/2020 4:37 PM CDT) Iron 33(L) 37 - 145 ug/dL [facility] TIBC 258 228 - 428 ug/dL [facility] Transferrin % Sat 13(L) 20 - 50 % [facility] 11/01/2020 4:37 PM CDT 11/01/2020 4:55 PM CDT Narrative Resulting Agency Comment IN Bruce Saab MD LAB BLOOD ORDERABLES Final Res ult Performing Organization Address [facility]/ZIP Co de Phone Number [address] [phone] * Heparin anti factor Xa activity (11/01/2020 4:37 PM CDT) Pathologist [facility] Heparin Chromogenic 0.50 0.30 - 0.70 IU/mL [facility] Comment: Anti-factor Xa is used to monitor unfractionated Heparin in weight-based Heparin therapy. ??At [facility], anti-factor Xa cannot be used to monitor Low Molecular Weight Heparin. ??If Low Molecular Weight Heparin monitoring is desired, please order LMWH and notify Heme at extension [phone]. 11/01/2020 4:37 PM CDT 11/01/2020 4:55 PM CDT Narrative [facility] - 11/01/2020 5:09 PM CDT Is patient on IV unfractionated heparin Y Resulting Agency Comment IN Moiz Conrad MD LAB BLOOD ORDERABLES Final R esult Performing Organization Address [facility] Co de Phone Number [address] [phone] * - Miscellaneous Lab Test (11/01/2020 4:37 PM CDT) [facility] Ref Lab Test Name DELETED [facility] Comment: GENETIC TESTING NOT PERFORMED ON INPATIENTS LILIANA SAAB NOTIFIED Note: Results via Scanned Reports in EMR or by paper report only. Specimen sent to Reference lab. Results usually in 2-7 days. Result deleted by the ancillary. 11/01/2020 4:37 PM CDT 11/01/2020 4:55 PM CDT Narrative [facility] - 11/02/2020 9:36 AM CDT Test Name prothrobin gene mutation ( a) LAV A R P PTGM PROTHROMBIN GENE MUTATION Resulting Agency Comment IN us Bruce Saab MD LAB BLOOD ORDERABLES Edited Re sult - Final Performing Organization Address [facility]/[place] [address], [facility] [phone] * (ABNORMAL) Heparin anti factor Xa activity (11/01/2020 9:49 AM CDT) Heparin Chromogenic 0.91(H) 0.30 - 0.70 IU/mL [facility] Comment: Anti-factor Xa is used to monitor unfractionated Heparin in weight-based Heparin therapy. ??At [facility], anti-factor Xa cannot be used to monitor Low Molecular Weight Heparin. ??If Low Molecular Weight Heparin monitoring is desired, please order LMWH and notify Heme at extension [phone]. 11/01/2020 9:49 AM CDT 11/01/2020 10:01 AM CDT Narrative [facility] - 11/01/2020 10:11 AM CDT Is patient on IV unfractionated heparin Y Resulting Agency Comment IN us Nae Gorman MD LAB BLOOD ORDERABLES Soco l Result Performing Organization Address [facility] [place] [address], [facility] [phone] * Transthoracic Echo Complete W Doppler/CF (11/01/2020 8:20 AM CDT) Anatomical Region Laterality Modality Ultrasound 11/01/2020 8:20 AM CDT Narrative 11/01/2020 9:10 AM CDT ? Adult Echocardiogram + ----- -----+ :Name: VIKTORIYA CUTLER ?Study Date: 11/01/2020 ?Status: IN;ERRAD ? : : ?Patient Location: H.2S^S204^02Height: 63 in ?: : ?Weight: 197 lb ??BP: 147/86 mmHg: :: 1965 ? Gender: Female ?BSA: 1.9 m2 ?: :Reason For Study: PE ? : :Ordering Physician: Anthony, ? : :Anthony ?: : ? : :Performed By: Soledad ?: :Serjio, [id number] ? : + ----- -----+ Procedure A two-dimensional transthoracic echocardiogram with color flow and Doppler was performed. Left Ventricle The left ventricle is normal in size. There is normal left ventricular wall thickness. Left ventricular systolic function is normal. Ejection Fraction = 55-60%. The left ventricular wall motion is normal. Right Ventricle The right ventricle is normal size. The right ventricular systolic function is normal. Atria The left atrial size is normal. Right atrial size is normal. Mitral Valve The mitral valve is normal. There is no mitral valve stenosis. There is no mitral regurgitation noted. Tricuspid Valve The tricuspid valve is normal. There is mild tricuspid regurgitation. Right ventricular systolic pressure is elevated at 30-40mmHg. Aortic Valve Aortic valve structure is normal. [...] :IVSd: 1.2 cmcm) ? 3.9 cm ?cm) ?3.0 cm ? cm) ?: :LVPWd: ?(0.6-1.1 ?LVIDs: ?(3.1-4.6 ?? LA dimension: ?(1.9-4.0 ?? : :1.2 cm ?cm) ? 2.4 cm ?cm) ?3.0 cm ? cm) ?: + + MMode/2D Measurements & Calculations IVSs: 1.7 cm ? LVPWs: 1.7 cm ?FS: 37.6 % ? % IVS thick: 38.4 % ?EDV(Teich): 66.0 ml ?ESV(Teich): 20.9 ml ? Ao root area: ?LVOT diam: 2.0 cmLVLd ap4: 7.2 cm ? SV(MOD-sp4): ? LVOT area: ? EDV(MOD-sp4): ?53.0 ml 7.2 cm2 ? 84.0 ml ? 3.1 cm2 ?LVLs ap4: 5.9 cm ?ESV(MOD-sp4): ?31.0 ml ?EF(MOD-sp4): 63.1 % ? EF (BP): 61.0 % Doppler Measurements & Calculations MV E max john: ? MV dec time: ? Ao V2 max: ? LV V1 max P.0 cm/sec ? 0.20 sec ? 164.1 cm/sec ? 7.4 mmHg MV A max john: ?Ao max PG: ? LV V1 max: 87.9 cm/sec ?10.8 mmHg ?136.4 cm/sec MV E/A: 0.91 ? VIANEY(V,D): 2.6 cm2 ? TV V2 max: ?PA V2 max: ? RV V1 max: ? TR max john: 42.9 cm/sec ? 110.1 cm/sec ? 67.6 cm/sec ?279.0 cm/sec TV max P.74 mmHgPA max P.8 mmHg ? TR max PG: ?31.1 mmHg ?RVSP(TR): 41.1 mmHg ? RAP systole: 10.0 mmHg Electronically signed by: Moises Prieto MD 11/01/2020 09:10 AM Resulting Agency Comment I Procedure Note Moises Prieto MD - 11/01/2020 Adult Echocardiogram + ----- -----+ :Name: VIKTORIYA CUTLER Study Date: 11/01/2020 Status:IN;ERRAD : : [facility]: : Weight: 197 lbBP: 147/86 mmHg: :: 1965 Gender: Female BSA: 1.9 m2: :Reason For Study: PE: :Ordering Physician: Anthony,: :Anthony: :: :Performed By: Soledad: :BERNICE Bassett: + ----- -----+ Procedure A two-dimensional transthoracic echocardiogram with color flow and Dopplerwas performed. Left Ventricle The left ventricle is normal in size. There is normal left ventricularwall thickness. Left ventricular systolic function is normal. Ejection Fraction= 55-60%. The left ventricular wall motion is normal. Right Ventricle The right ventricle is normal size. The right ventricular systolicfunction is normal. Atria The left atrial size is normal. Right atrial size is normal. Mitral Valve The mitral valve is normal. There is no mitral valve stenosis. There isno mitral regurgitation noted. Tricuspid Valve The tricuspid valve is normal. There is mild tricuspid regurgitation.Right ventricular systolic pressure is elevated at 30-40mmHg. Aortic Valve Aortic valve structure is normal. [...] : :IVSd: 1.2 cmcm) 3.9 cm cm) 3.0 cm cm): :LVPWd: (0.6-1.1 LVIDs: (3.1-4.6 LA dimension:(1.9-4.0 : :1.2 cm cm) 2.4 cm cm) 3.0 cm cm): + + MMode/2D Measurements & Calculations IVSs: 1.7 cm LVPWs: 1.7 cm FS: 37.6 % % IVS thick:38.4 % EDV(Teich): 66.0 ml ESV(Teich): 20.9 ml Ao root area: LVOT diam: 2.0 cmLVLd ap4: 7.2 cm SV(MOD-sp4): LVOT area: EDV(MOD-sp4): 53.0 ml 7.2 cm2 84.0 ml 3.1 cm2 LVLs ap4: 5.9 cm ESV(MOD-sp4): 31.0 ml EF(MOD-sp4): 63.1 % EF (BP): 61.0 % Doppler Measurements & Calculations MV E max john: MV dec time: Ao V2 max: LV V1 max P.0 cm/sec 0.20 sec 164.1 cm/sec 7.4 mmHg MV A max john: Ao max PG: LV V1 max: 87.9 cm/sec 10.8 mmHg 136.4 cm/sec MV E/A: 0.91 VIANEY(V,D): 2.6 cm2 TV V2 max: PA V2 max: RV V1 max: TR max john: 42.9 cm/sec 110.1 cm/sec 67.6 cm/sec 279.0 cm/sec TV max P.74 mmHgPA max P.8 mmHg TR max P.1 mmHg RVSP(TR): 41.1mmHg RAP systole: 10.0 mmHg Electronically signed by: Moises Prieto MD 11/01/2020 09:10 AM us Anthony Cruz MD CV ECHO PROCEDURES Final R esult * (ABNORMAL) aPTT (11/01/2020 4:03 AM CDT) APTT >180(HH) 23 - 38 SECONDS [facility] Comment: CRITICAL VALUE CALLED and REPEATED. at:0556 11/01/20 by:Madhu Sebastian to: [id number] New reference ranges in use 04-27-2020. 11/01/2020 4:03 AM CDT 11/01/2020 4:32 AM CDT Narrative Resulting Agency Comment IN us Nae Gorman MD LAB BLOOD ORDERABLES Soco l Result Performing Organization Address [facility] Co de Phone Number [facility] [address] [phone] * (ABNORMAL) Protime-INR (11/01/2020 4:03 AM CDT) PT 16.5(H) 12.3 - 15.1 SECONDS [facility] Comment: New reference ranges in use 04-27-2020. INR 1.27 [facility] Comment: Recommended Therapeutic range for Oral Anticoagulant Therapy No anti-coagulation therapy ? Normal Range: ?0.8-1.4 Anti-coagulation therapy ? Low intensity therapy ?2.0-3.0 ? High intensity therapy ?? 2.5-3.5 Critical Value ? Greater than or equal to 5.0 Patients should be monitored for serious bleeding. 11/01/2020 4:03 AM CDT 11/01/2020 4:32 AM CDT Narrative Resulting Agency Comment IN Nae Gorman MD LAB BLOOD ORDERABLES Soco l Result [facility] [address] [place] [address], [facility] [phone] * (ABNORMAL) CBC with auto differential (11/01/2020 4:03 AM CDT) WBC 8.6 3.8 - 9.9 X10 3/ul [facility] RBC 2.89(L) 3.90 - 5.20 x10 6/ul [facility] Hemoglobin 8.4(L) 11.9 - 15.5 g/dL [facility] Hct 27.4(L) 35.6 - 45.5 % [facility] MCV 94.8 81.3 - 96.4 fl [facility] MCH 29.1 27.1 - 33.3 pg [facility] MCHC 30.7(L) 32.3 - 35.7 g/dl [facility] Plt Count 201 150 - 400 x10 3/ul [facility] MPV 9.8 9.1 - 12.3 fl [facility] Neut % 75.1 % [facility] Immature Gran % 0.3 % [facility] Lymph % 17.4 % [facility] Linn % 5.3 % [facility] Eos % 1.3 % [facility] AUTO BASO % 0.6 % [facility] NEUTROPHIL ABS # 6.5 1.7 - 6.5 x10 3/ul [facility] Immature Gran # 0.0 0.0 - 0.1 x10 3/ul [facility] Absolute Lymphs (auto) 1.5 0.8 - 3.3 x10 3/ul [facility] Absolute Monos (auto) 0.5 0.2 - 0.8 x10 3/ul [facility] Absolute Eos (auto) 0.1 0.0 - 0.5 x10 3/ul [facility] BASOPHIL ABS # 0.1 0.0 - 0.1 x10 3/ul [facility] Nucleat RBC Rel Count 0.2 #/100WBC [facility] NRBC abs 0.02(H) 0.00 - 0.01 x10 3/ul [facility] Absolute Neutrophils 6,500 200 - 8,000 /ul [facility] 11/01/2020 4:03 AM CDT 11/01/2020 4:32 AM CDT Narrative Resulting Agency Comment IN us Nae Gorman MD LAB BLOOD ORDERABLES Soco l Result [facility] [address] [place] [address], [facility] [phone] * (ABNORMAL) Basic metabolic panel (11/01/2020 4:03 AM CDT) Sodium 134(L) 135 - 145 mmol/L [facility] Potassium 3.5 3.3 - 5.1 mmol/L [facility] Chloride 104 96 - 108 mmol/L [facility] Carbon Dioxide 21(L) 22 - 32 mmol/L [facility] Anion Gap 9 7 - 16 [facility] Glucose 129(H) 70 - 100 mg/dL [facility] BUN 10 8 - 25 mg/dL [facility] Creatinine 0.5 0.5 - 1.1 mg/dL [facility] Comment: NOTE: Estimated GFR (Cockroft-Gault) will NOT be calculated unless patient Height and Weight were entered. Also, Kidney Disease Stage (GFR) and Estimated GFR (Cockroft-Gault) will NOT be calculated if Creatinine result is <0.2. Kidney Disease Stage >90 mL/MIN [facility] Comment: NOTE; ??The GFR is an estimated value using the creatinine, sex, age, and race of the patient. THE Estimated Kidney Disease GFR is validated for AGES 18-70 YEARS STAGE ?mL/Min ?DESCRIPTION ??1 ?90 mL/min or more ?Normal or elevated GFR ??2 ? 60-89 mL/min ?Mildly decreased GFR ??3 ? 30-59 mL/min ?Moderately decreased GFR ??4 ? 15-29 mL/min ?Severely decreased GFR ??5 ? <15 mL/min ? Kidney failure or on dialysis Est GFR (Cockcroft-G) 133 ml/MIN [facility] Comment: Estimated GFR(Cockroft-Gault)is used to calculate patient medication dosage Calcium 9.4 8.6 - 10.3 mg/dL [facility] 11/01/2020 4:03 AM CDT 11/01/2020 4:32 AM CDT Narrative Resulting Agency Comment IN Anthony Cruz MD LAB BLOOD ORDERABLES Final Result Performing Organization Address City/State/[facility] Co de Phone Number [facility] [address] [place] [address], [facility] [phone] * CARDIOLOGY REPORT (11/01/2020 12:00 AM CDT) Anatomical Region Laterality Modality Other Narrative 11/01/2020 12:00 AM CDT Ordered by an unspecified provider. us Historical Provider [facility] MADHURI HERNANDEZ Final Result * US Vein Duplex Lower Extremity Bilateral Complete (11/01/2020 12:00 AM CDT) Anatomical Region Laterality Modality Vascular Bilateral Ultrasound 11/02/2020 9:26 AM CDT Narrative 11/02/2020 12:05 PM CDT ? Patient Name: CUTLER,VIKTORIYA R ? MR#: [id number] ? Status: ADM IN ?D.O.B: 1965 Age: ??55 ?Sex: Female ? ADM/SER Dt: 11/01/20 ?Disch Dt: ? LOC: H.2S ? Arpita Cedeno: Ellie Torres MD ? Order #[id number] ? Venous Dop/Duplex Both Legs ?? Jordana Aguirre MD ? Signed ?? DATE OF SERVICE: ?? 11/01/2020 ? TYPE OF REPORT: ??Bilateral lower extremity venous duplex exam. ? REASON FOR EXAM: ??PE. ? RIGHT-SIDED FINDINGS: ??Right common femoral, femoral, popliteal, posterior tibial, peroneal and greater saphenous veins were identified. ??The distal femoral, popliteal, posterior tibial and peroneal veins had no spontaneity, phasicity, or compressibility consistent with an acute DVT of these veins. ? LEFT-SIDED FINDINGS: ??Left common femoral, femoral, popliteal, posterior tibial, peroneal and greater saphenous veins were identified. ??They were noted to be spontaneous and compressible consistent with no acute or chronic DVT of the left lower extremity. ? OVERALL IMPRESSION: ??Acute deep vein thrombosis of the distal femoral, popliteal, posterior tibial and peroneal veins and no acute or chronic deep venous thrombosis of the left lower extremity. ? NTS ? Job: [id number] ? Dictated By: Jordana Aguirre MD ?? Dictated For: Jordana ??MD Carla ? <Electronically signed by Jeanna Gomez ? 11/02/20 1641 ?? Resulting Agency Comment I Procedure Note Jordana Aguirre MD - 11/02/2020 Patient Name: VIKTORIYA CUTLER #: [id number] Status: ADM IN D.O.B: 1965 Age: 55Sex: Female ADM/SER Dt: 11/01/20 Disch Dt:LOC: H.2S Ordering Phy: Ellie Torres MD Order #[id number] Venous Dop/Duplex Both Legs Jordana Aguirre MD Signed DATE OF SERVICE: 11/01/2020 TYPE OF REPORT: Bilateral lower extremity venous duplex exam. REASON FOR EXAM: PE. RIGHT-SIDED FINDINGS: Right common femoral, femoral, popliteal,posterior tibial, peroneal and greater saphenous veins were identified. The distal femoral, popliteal,posterior tibial and peroneal veins had no spontaneity, phasicity, or compressibilityconsistent with an acute DVT of these veins. LEFT-SIDED FINDINGS: Left common femoral, femoral, popliteal, posteriortibial, peroneal and greater saphenous veins were identified. They were noted to bespontaneous and compressible consistent with no acute or chronic DVT of the left lower extremity. OVERALL IMPRESSION: Acute deep vein thrombosis of the distal femoral,popliteal, posterior tibial and peroneal veins and no acute or chronic deep venous thrombosis of theleft lower extremity. NTS Job: [id number] Dictated By: Jordana Aguirre MD Dictated For: Jordana Aguirre MD <Electronically signed by Carla Rosas M.D> 11/02/20 1641 us Ellie Torres MD IM US PROCEDURES Final Result * CTA Chest W IV Contrast - PE (11/01/2020 12:00 AM CDT) Anatomical Region Laterality Modality Body N/A Computed Tomogra phy 11/01/2020 12:4 4 AM CDT Narrative 11/01/2020 1:12 AM CDT Patient Name: VIKTORIYA CUTLER Delmi ?Ordering Dr: Nae Gorman MD ?? D.O.B: 1965 ? Exam Date: 11/01/20 ?? 0000 ?? Age: 55 ?Sex: Female ? MR#: [id number] ?? Loc: ? RADIOLOGY REPORT ?? Order #[id number] ?? CT Scan ? CTA Chest W IV Contrast - PE ? Signed ?? EXAM DESCRIPTION: ?? CTA Chest W IV Contrast - PE ? REASON FOR STUDY: ?? Severe shortness of breath; right lateral chest wall pain ?? with inspiration; 3 days duration; anemia ? TECHNIQUE: ??CT angiogram of the chest performed with intravenous contrast ?? using helical scanning technique with dynamic intravenous contrast injection, ?? according to a pulmonary embolism protocol. Reconstructed coronal and sagittal ?? MPR images reviewed. All images stored on PACS. ??3D MIP images rendered on ?? scanning unit and reviewed at time of interpretation. ?Automated exposure control was used as a dose optimization technique for this ?? examination. ? CONTRAST TYPE/DOSE: ?? 80 mL Optiray 350 injected via ??right antecubital fossa ?? IV site. ? COMPARISON: ?? CT abdomen/pelvis 09/29/2020 ? FINDINGS: ? VASCULATURE: ??Multifocal, bilateral pulmonary embolism involving lobar, ?? segmental, and subsegmental pulmonary arteries. ??Additional tiny saddle ?? embolic component. ??No CT evidence of right heart strain; RV: LV ratio ?? measures less than 0.9: 1. ?No thoracic aortic aneurysm. ? LUNGS: ??New, small foci of consolidation within the right lower lobe, which ?? may reflect pulmonary infarcts. ? PLEURA: ??Trace right pleural effusion. ??No pneumothorax. ? MEDIASTINUM/NAYELI: ??No supraclavicular, mediastinal, or hilar lymphadenopathy. ? No significant abnormality of the thoracic esophagus, within the limitation of ?? the CT technique. ? HEART: ??Heart size is normal in size. No pericardial effusion. ? AXILLA: ??No adenopathy. ? CHEST WALL: ??No appreciable masses. ??No subcutaneous air. ? HARDWARE/LINES/TUBES: ??None. ? UPPER ABDOMEN: ??No significant abnormality. ? MUSCULOSKELETAL: ??No suspicious abnormality. ? OTHER: ??No significant abnormality. ? IMPRESSION: ? 1. ??Extensive bilateral pulmonary embolic burden, with tiny subtle component. ? No CT findings to suggest right heart strain. ??Findings discussed verbally via ?? telephone with Dr. Wilkins at 1:05 a.m. on 11/01/2020. ? 2. ??New, small foci of consolidation within the right lower lobe, which may ?? reflect pulmonary infarcts. ? 3. ??Trace right pleural effusion. ? THIS IS AN ELECTRONICALLY VERIFIED FINAL REPORT ?? 11/01/2020 1:12 AM - Electronically signed by Adonis Noyola M.D. ?? dAonis Noyola M.D. ? RT ?? D: ??11/01/2020 1:12 AM ?? T: ? Report ID: [id number] ?? Reading Location: ??[id number] ? REPORT ELECTRONICALLY SIGNED IN OTHER VENDOR SYSTEM ?? Resulting Agency Comment E Procedure Note Adonis Noyola MD - 11/01/2020 Patient Name: VIKTORIYA CUTLER Dr: Nae Gorman MD D.O.B: 1965 Exam Date: 11/01/20 0000 Age: 55 Sex: Female MR#: [id number] Loc: RADIOLOGY REPORT Order #[id number] CT Scan CTA Chest W IV Contrast - PE Signed EXAM DESCRIPTION: CTA Chest W IV Contrast - PE REASON FOR STUDY: Severe shortness of breath; right lateral chest wallpain with inspiration; 3 days duration; anemia TECHNIQUE: CT angiogram of the chest performed with intravenous contrast using helical scanning technique with dynamic intravenous contrastinjection, according to a pulmonary embolism protocol. Reconstructed coronal andsagittal MPR images reviewed. All images stored on PACS. 3D MIP images renderedon scanning unit and reviewed at time of interpretation. Automated exposure control was used as a dose optimization technique forthis examination. CONTRAST TYPE/DOSE: 80 mL Optiray 350 injected via right antecubitalfossa IV site. COMPARISON: CT abdomen/pelvis 09/29/2020 FINDINGS: VASCULATURE: Multifocal, bilateral pulmonary embolism involving lobar, segmental, and subsegmental pulmonary arteries. Additional tiny saddle embolic component. No CT evidence of right heart strain; RV: LV ratio measures less than 0.9: 1. No thoracic aortic aneurysm. LUNGS: New, small foci of consolidation within the right lower lobe,which may reflect pulmonary infarcts. PLEURA: Trace right pleural effusion. No pneumothorax. MEDIASTINUM/NAYELI: No supraclavicular, mediastinal, or hilarlymphadenopathy. No significant abnormality of the thoracic esophagus, within thelimitation of the CT technique. HEART: Heart size is normal in size. No pericardial effusion. AXILLA: No adenopathy. CHEST WALL: No appreciable masses. No subcutaneous air. HARDWARE/LINES/TUBES: None. UPPER ABDOMEN: No significant abnormality. MUSCULOSKELETAL: No suspicious abnormality. OTHER: No significant abnormality. IMPRESSION: 1. Extensive bilateral pulmonary embolic burden, with tiny subtlecomponent. No CT findings to suggest right heart strain. Findings discussedverbally via telephone with Dr. Wilkins at 1:05 a.m. on 11/01/2020. 2. New, small foci of consolidation within the right lower lobe, whichmay reflect pulmonary infarcts. 3. Trace right pleural effusion. THIS IS AN ELECTRONICALLY VERIFIED FINAL REPORT 11/01/2020 1:12 AM - Electronically signed by Adonis Noyola M.D. RT T: Report ID: [id number] Reading Location: [place] [address] REPORT ELECTRONICALLY SIGNED IN OTHER VENDOR SYSTEM Nae Gorman MD IMG CT PROCEDURES Final R esult * Urine culture Urine, clean voided (10/31/2020 5:20 PM CDT) CULTURE URINE 50,000 CFU/ml MIXED GRAM POSITIVE ORGANISMS [facility] Organism STREPTOCOCCUS VIRIDANS GROUP [facility] CULTURE URINE >100,000 CFU/ml NO SUSCEPTIBILITY TESTING TO BE PERFORMED ISOLATE OF QUESTIONABLE SIGNIFICANCE. [facility] Urine, clean voided 10/31/2020 5:20 PM CDT 10/31/2020 5:27 PM CDT Elie Nation DO LAB MICROBIOLOGY - GENERAL ORDERABLES Final Result [facility] [address] [place] [address], [facility] [phone] * (ABNORMAL) URINALYSIS, COMPLETE W/REFLEX TO CULTURE (10/31/2020 5:20 PM CDT) Ur Collection Type CLEAN CATCH [facility] Ur Culture Indicated? C S INDICATED [facility] Comment: Culture report to follow. Urine Color YELLOW YELLOW [facility] Urine Clarity Slightly-Kami udy CLEAR [facility] Urine Glucose (UA) NORMAL NORMAL mg/dL [facility] Urine Bilirubin NEGATIVE NEGATIVE mg/dl [facility] Urine Ketones NEGATIVE NEGATIVE mg/dL [facility] Ur Specific [place] 1.026(H) 1.005 - 1.025 [facility] Urine Blood NEGATIVE NEGATIVE mg/dl [facility] Urine pH 5.0 5.0 - 8.0 [facility] Urine Protein NEGATIVE NEGATIVE mg/dL [facility] Urine Urobilinogen 2(A) NORMAL mg/dL [facility] Urine Nitrite NEGATIVE NEGATIVE [facility] Ur Leukocyte Esterase 250(A) NEGATIVE Law/ul [facility] Ur Microscopic Review Indicated or Ordered [facility] Urine RBC 6-10 0 - 2 /HPF [facility] Urine WBC 11-20 0 - 2 /HPF [facility] Urine Mucus Present /LPF [facility] Ur Squamous Epith Cells 1-5 /HPF [facility] Calcium Oxalate Crystal 1+ /HPF [facility] 10/31/2020 5:20 PM CDT 10/31/2020 5:27 PM CDT Narrative [facility] - 10/31/2020 5:44 PM CDT Indication(s) for ordering ?? Delirium/malaise/lethargy jm Clean catch Resulting Agency Comment IN us Elie Nation DO LAB URINE ORDERABLES Final Result [facility] [address] [place] [address], [facility] [phone] * (ABNORMAL) Urinalysis reflex to microscopic and culture (10/31/2020 5:20 PM CDT) Ur Collection Type CLEAN CATCH [facility] Ur Culture Indicated? C S INDICATED [facility] Comment: Culture report to follow. Urine Color YELLOW YELLOW [facility] Urine Clarity Slightly-Kami udy CLEAR [facility] Urine Glucose (UA) NORMAL NORMAL mg/dL [facility] Urine Bilirubin NEGATIVE NEGATIVE mg/dl [facility] Urine Ketones NEGATIVE NEGATIVE mg/dL [facility] Ur Specific [place] 1.026(H) 1.005 - 1.025 [facility] Urine Blood NEGATIVE NEGATIVE mg/dl [facility] Urine pH 5.0 5.0 - 8.0 [facility] Urine Protein NEGATIVE NEGATIVE mg/dL [facility] Urine Urobilinogen 2(A) NORMAL mg/dL [facility] Urine Nitrite NEGATIVE NEGATIVE [facility] Ur Leukocyte Esterase 250(A) NEGATIVE Law/ul [facility] Ur Microscopic Review Indicated or Ordered [facility] Urine RBC 6-10 0 - 2 /HPF [facility] Urine WBC 11-20 0 - 2 /HPF [facility] Urine Mucus Present /LPF [facility] Ur Squamous Epith Cells 1-5 /HPF [facility] Calcium Oxalate Crystal 1+ /HPF [facility] 10/31/2020 5:20 PM CDT 10/31/2020 5:27 PM CDT Narrative [facility] - 10/31/2020 5:40 PM CDT Indication(s) for ordering ?? Delirium/malaise/lethargy jm Clean catch Resulting Agency Comment ER us Elie Nation DO LAB MICROBIOLOGY - GENERAL ORDERABLES Final Result [facility] [address] [place] [address], [facility] [phone] * ECG 12 lead (10/31/2020 5:01 PM CDT) Ventricular Rate EKG/Min 98 BPM ER RADIOLOGY Atrial Rate 98 BPM ER RADIOLOGY PA-Interval (MSEC) 124 ms ER RADIOLOGY QRS-Interval (MSEC) 96 ms ER RADIOLOGY QT-Interval (MSEC) 338 ms ER RADIOLOGY QTc 431 ms ER RADIOLOGY P [place] -29 degrees ER RADIOLOGY R [place] -24 degrees ER RADIOLOGY T [place] 146 degrees ER RADIOLOGY Diagnosis Normal sinus rhythm Nonspecific T wave abnormality Abnormal ECG No previous ECGs available ER RADIOLOGY 10/31/2020 5:01 PM CDT 10/31/2020 8:28 PM CDT Narrative Resulting Agency Comment YARELY us Elie Nation DO ECG ORDERABLES Final Resul t ER RADIOLOGY * (ABNORMAL) CBC with auto differential (10/31/2020 4:15 PM CDT) WBC 8.4 3.8 - 9.9 X10 3/ul [facility] RBC 2.70(L) 3.90 - 5.20 x10 6/ul [facility] Hemoglobin 8.1(L) 11.9 - 15.5 g/dL [facility] Hct 25.1(L) 35.6 - 45.5 % [facility] MCV 93.0 81.3 - 96.4 fl [facility] MCH 30.0 27.1 - 33.3 pg [facility] MCHC 32.3 32.3 - 35.7 g/dl [facility] RDW 30.4(H) 11.1 - 14.9 % [facility] Plt Count 186 150 - 400 x10 3/ul [facility] MPV 9.4 9.1 - 12.3 fl [facility] Neut % 77.4 % [facility] Immature Gran % 0.4 % [facility] Lymph % 15.6 % [facility] Linn % 5.1 % [facility] Eos % 1.0 % [facility] AUTO BASO % 0.5 % [facility] NEUTROPHIL ABS # 6.5 1.7 - 6.5 x10 3/ul [facility] Immature Gran # 0.0 0.0 - 0.1 x10 3/ul [facility] Absolute Lymphs (auto) 1.3 0.8 - 3.3 x10 3/ul [facility] Absolute Monos (auto) 0.4 0.2 - 0.8 x10 3/ul [facility] Absolute Eos (auto) 0.1 0.0 - 0.5 x10 3/ul [facility] BASOPHIL ABS # 0.0 0.0 - 0.1 x10 3/ul [facility] Nucleat RBC Rel Count 0.4 #/100WBC [facility] NRBC abs 0.03(H) 0.00 - 0.01 x10 3/ul [facility] Platelet Evaluation AGREE AGREE [facility] Comment: Slide review of platelets correlates with instrument count. Anisocytosis 2+ [facility] Poikilocytosis 2+ [facility] Tear Drop Cells 1+ [facility] Absolute Neutrophils 6,500 200 - 8,000 /ul [facility] 10/31/2020 4:15 PM CDT 10/31/2020 4:20 PM CDT Narrative Resulting Agency Comment ER us Elie Nation DO LAB BLOOD ORDERABLES Final Result [facility] [address] [place] [address], [facility] [phone] * Sepsis Lactate (10/31/2020 4:15 PM CDT) Sepsis lactate 1.1 mmol/L [facility] Comment: Lactate Reference Range: 0.5 - 2.2 mmol/L 10/31/2020 4:15 PM CDT 10/31/2020 4:20 PM CDT Narrative Resulting Agency Comment ER Elie Nation DO LAB BLOOD ORDERABLES Final Result Performing Organization Address [facility] de Phone Number [address] [phone] * Troponin I (10/31/2020 3:40 PM CDT) Pathologist [facility] Troponin I <0.300 0.000 - 0.300 ng/mL [facility] Comment: Reference using KYA Chemiluminescence ? Negative: Repeat in 4-6 hours as indicated. 10/31/2020 3:40 PM CDT 10/31/2020 3:46 PM CDT Narrative Resulting Agency Comment ER Elie Nation DO LAB BLOOD ORDERABLES Final Result Performing Organization Address [facility] de Phone Number [address] [phone] * B-type natriuretic peptide (10/31/2020 3:26 PM CDT) Pathologist [facility] B-Natriuretic Peptide 17 0 - 100 pg/mL [facility] Comment: B Natriutetic Peptide METHOD: ??Siemens Centaur XP using JUDITH. Decision threshold of 100 pg/mL has been demonstrated to provide the maximal combination of sensitivity, specificity, and predictive value for the diagnosis of congestive heart failure (CHF). ??Virtually all patients with no evidence of CHF have BNP values <100 pg/mL. NOTE: ??Nesiritide (Natrecor) interferes with the BNP assay. BNP result will be invalid if drawn within 2 hours of bolus or infusion of nesiritide. 10/31/2020 3:26 PM CDT 10/31/2020 3:46 PM CDT Narrative Resulting Agency Comment ER Elie Landon Abbeg DO LAB BLOOD ORDERABLES Final Result [facility] [address] [place] [address], [facility] [phone] * (ABNORMAL) Comprehensive metabolic panel (10/31/2020 3:26 PM CDT) Sodium 138 135 - 145 mmol/L [facility] Potassium 3.6 3.3 - 5.1 mmol/L [facility] Chloride 105 96 - 108 mmol/L [facility] Carbon Dioxide 20(L) 22 - 32 mmol/L [facility] Anion Gap 13 7 - 16 [facility] Glucose 101(H) 70 - 100 mg/dL [facility] BUN 10 8 - 25 mg/dL [facility] Creatinine 0.5 0.5 - 1.1 mg/dL [facility] Comment: NOTE: Estimated GFR (Cockroft-Gault) will NOT be calculated unless patient Height and Weight were entered. Also, Kidney Disease Stage (GFR) and Estimated GFR (Cockroft-Gault) will NOT be calculated if Creatinine result is <0.2. Kidney Disease Stage >90 mL/MIN [facility] Comment: NOTE; ??The GFR is an estimated value using the creatinine, sex, age, and race of the patient. THE Estimated Kidney Disease GFR is validated for AGES 18-70 YEARS STAGE ?mL/Min ?DESCRIPTION ??1 ?90 mL/min or more ?Normal or elevated GFR ??2 ? 60-89 mL/min ?Mildly decreased GFR ??3 ? 30-59 mL/min ?Moderately decreased GFR ??4 ? 15-29 mL/min ?Severely decreased GFR ??5 ? <15 mL/min ? Kidney failure or on dialysis Est GFR (Cockcroft-G) 133 ml/MIN [facility] Comment: Estimated GFR(Cockroft-Gault)is used to calculate patient medication dosage Calcium 9.6 8.6 - 10.3 mg/dL [facility] Total Protein 7.8 6.4 - 8.3 g/dL [facility] Albumin 4.3 3.5 - 5.0 g/dL [facility] Globulin 3.5 2.3 - 3.5 gm/dL [facility] Albumin/Globulin Ratio 1.2 1.1 - 1.8 [facility] Total Bilirubin 1.2 0.0 - 1.2 mg/dL [facility] AST 24 0 - 32 U/L [facility] ALT 17 0 - 33 U/L [facility] Alkaline Phosphatase 71 35 - 104 U/L [facility] 10/31/2020 3:26 PM CDT 10/31/2020 3:46 PM CDT Narrative Resulting Agency Comment ER us Elie Nation DO LAB BLOOD ORDERABLES Final Result [facility] [address] [place] [address], [facility] [phone] * XR Chest 1 View (10/31/2020 12:00 AM CDT) Anatomical Region Laterality Modality Body, Chest N/A Radiographic Brynn ging 10/31/2020 4:33 PM CDT Narrative 10/31/2020 4:34 PM CDT Patient Name: VIKTORIYA CUTLER ?Ordering Dr: Elie Nation DO ?? D.O.B: 1965 ? Exam Date: // ?? 0000 ?? Age: 55 ?Sex: Female ? MR#: [id number] ?? Loc: ? RADIOLOGY REPORT ?? Order #[id number] ?? Radiology ? Chest 1 View Portable ? Signed ?? EXAM DESCRIPTION: ?? Chest 1 View Portable ? REASON FOR STUDY: ?? Shortness of breath since Saturday. ??Anemia. ? TECHNIQUE: ?? Frontal radiographic view of the chest acquired. ? COMPARISON: ?? None available. ? FINDINGS: ? LUNGS/PLEURA: ??Lungs are well expanded and clear. ??There is no pleural ?? effusion. ??No pneumothorax. ? HEART/MEDIASTINUM: ??Heart size is normal. Normal mediastinal and hilar ?? contours. ? HARDWARE/LINES/TUBES: ??None. ? BONES: ??No acute findings. ? OTHER: ??No other significant finding. ? IMPRESSION: ?? No acute findings noted. ? THIS IS AN ELECTRONICALLY VERIFIED FINAL REPORT ?? 10/31/2020 4:34 PM - Electronically signed by Noble Tabares M.D. ?? Noble Tabares M.D. ? RL ?? D: ??10/31/2020 4:34 PM ?? T: ? Report ID: [id number] ?? Reading Location: ??[id number] ? REPORT ELECTRONICALLY SIGNED IN OTHER VENDOR SYSTEM ?? Resulting Agency Comment E Procedure Note Noble Forbes MD - 10/31/2020 Patient Name: VIKTORIYA CUTLER Dr: Elie Nation DO, D.O.B: 1965 Exam Date: 10/31/20 0000 Age: 55 Sex: Female MR#: [id number] Loc: RADIOLOGY REPORT Order #[id number] Radiology Chest 1 View Portable Signed EXAM DESCRIPTION: Chest 1 View Portable REASON FOR STUDY: Shortness of breath since Saturday. Anemia. TECHNIQUE: Frontal radiographic view of the chest acquired. COMPARISON: None available. FINDINGS: LUNGS/PLEURA: Lungs are well expanded and clear. There is no pleural effusion. No pneumothorax. HEART/MEDIASTINUM: Heart size is normal. Normal mediastinal and hilar contours. HARDWARE/LINES/TUBES: None. BONES: No acute findings. OTHER: No other significant finding. IMPRESSION: No acute findings noted. THIS IS AN ELECTRONICALLY VERIFIED FINAL REPORT 10/31/2020 4:34 PM - Electronically signed by Noble Tabares M.D. RL T: Report ID: [id number] Reading Location: [id number] REPORT ELECTRONICALLY SIGNED IN OTHER VENDOR SYSTEM us Elie Nation DO IMG XR PROCEDURES Final Res ult documented in this encounter Visit Diagnoses Not on filedocumented in this encounter Care Teams Pilot Relationship Specialty Start Date End Date Starr Bran PA [address] [place] [address] PCP - General Internal Medicine 12/30/18 documented as of this encounter
--- OUTSIDE RECORDS SUMMARY | 2024-07-18 20:37 | XMS_ITS | Encounter Summary ---
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 Worker Name Role Phone Starr Bran Primary Care Provider [phone] Encounter Details Date Type Department Care Team (Late st Contact Info) Description 11/07/2020 Telephone [facility] Family Medicine [address] [place] [address] Starr Bran PA [address] [place] [address] Social History Tobacco Use Types [...] on file Legal 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 Prescribed by Yi Galeano. documented in this encounter Plan of Treatment Not on file documented as of this encounter Visit Diagnoses Not on filedocumented in this encounter Historical Medications * This list may reflect changes made after this encounter. apixaban (ELIQUIS) 5 mg tablet Take 5 mg by mouth every 12 (twelve) hours 11/02/2020 11/10/2020 added in this encounter Care Teams Horse Stud Worker Relationship Specialty Start Date End Date Starr Bran PA [address] [facility] [address] [place] [address] PCP - General Internal Medicine 12/30/18 documented as of this encounter
--- OUTSIDE RECORDS SUMMARY | 2024-07-18 20:38 | XMS_ITS | Encounter Summary ---
Author Organization [facility] Address [address] [place] [address] Care Team Providers Care Restaurant Lead Name Role Phone Starr Bran Primary Care Provider +1- [phone] Reason for Visit * Reason Comments Hospital Follow Up Encounter Details Date Type Department Care Team (Late st Contact Info) Description 10/04/2020 3:45 PM RESEARCH ANALYST Office Visit [facility] Family Medicine [address] [place] [address] Starr Bran PA [address] [place] [address] Iron deficiency anemia due to chronic blood loss (Primary Dx); SOB (shortness of breath) on exertion; Essential hypertension; Menorrhagia with regular cycle; Obesity (BMI 30-39.9); BMI 35.0-35.9,adult Social History [...] points, staff should administer the PHQ-9) 0 10/04/2020 Comments Unknown Sex and Gender Information Value Date Recorded Sex Assigned at Not on file Legal Sex Female 10:31 AM RESEARCH ANALYST Gender Identity Female 02/02/2021 7:25 AM CDT Sexual Orientation Straight 02/02/2021 7: 25 AM CDT documented as of this encounter Last Filed Vital Signs Vital Sign Reading Time Taken Comments Blood Pressure 144/80 10/04/2020 3:57 PM RESEARCH ANALYST Pulse 80 10/04/2020 3:57 PM RESEARCH ANALYST Temperature 36.3 ??C (97.3 ??F) 10/04/2020 3:57 PM CS T Respiratory Rate - - Oxygen Saturation 99% 10/04/2020 3:57 PM RESEARCH ANALYST Inhaled Oxygen Concentration - - Weight 91.4 kg (201 lb 6.4 oz) 10/04/2020 3:57 P M RESEARCH ANALYST Height 159.8 cm (5' 2.9 ) 10/04/2020 3:57 PM RESEARCH ANALYST Body Mass Index 35.79 10/04/2020 3:57 PM RESEARCH ANALYST documented in this encounter Ordered Prescriptions Prescription Sig Dispense Quantity Refills Last Filled Start Date End Date ferrous sulfate 325 mg (65 mg of elemental iron) tablet Take 1 tablet (325 mg total) by mouth 2 (two) times a day 10/09/2020 10/27/2020 lisinopriL (PRINIVIL,ZESTRIL) 10 mg tablet Take 1 tablet (10 mg total) by mouth daily 90 tablet 3 10/09/2020 12/14/2020 documented in this encounter Progress Notes * Starr Bran PA - 10/04/2020 3:45 PM CST Images from the original note were not included. Subjective/Objective Patient ID: Viktoriya Bell is a 55 y.o. female. Chief Complaint Hospital Follow Up HPI Patient presents to followup recent hosptialization. Admit to [facility] 09/28/2020 Discharge: 09/30/2020 Dx: Anemia Hgb 4.6 TCM call not required as she is being seen on Day 2 (workdays) after discharged. Today is Day 4 after discharge Starr Dougherty PA have personally reviewed all Hospital/ER data including [employer] and CareEverywhere if available. This patient's discharge medication list has been reviewed and reconciled with the medication list in the office chart and has also been reviewed with patient and/or caregiver. I have noted any changes. Patient was seen in the office a few weeks ago with SOB with exertion. Labs were done and her Hgb returned at 4.6. She was sent to ER and admitted. Denies heavy periods (on DepoProvera) Cologuard was negative in 01/2019. No changes/blood in stool or urine. Not on ASA or AC. No weight loss. Labs c/w microcytic anemia and slow GI bleed suspected. FOBT positive. She had 3 units blood transfused and IV iron CT Abd/Pelvis with Contrast 09/29/2020 Impression: -No acute findings identified to suggest etiology of the patient's symptoms. She was discharged home on oral iron H/H at discharge .10/22.1 Has appointment for followup with Dr. Schuler to complete GI bleed workup with UGI, lower GI and possible capsule followthru. In general, patient is feeling better. Less fatigue. SOB is gone. She was scheduled to followup with Cardio. Advised could cancel and the SOB appears to be related to severe anemia. If SOB returns, may consider rescheduling followup. Review of Systems Constitutional: Negative for fever. HENT: Negative for congestion. Respiratory: Negative for shortness of breath. Cardiovascular: Negative for chest pain. Gastrointestinal: Negative for constipation and diarrhea. Vitals: 10/04/20 1557 BP: 144/80 BP Location: Left arm Patient Position: Sitting Pulse: 80 Temp: 36.3 ??C (97.3 ??F) TempSrc: Temporal SpO2: 99% Weight: 91.4 kg (201 lb 6.4 oz) Height: 159.8 cm (5' 2.9 ) Physical [...] blood loss (D50.0) (Primary) Assessment & Plan: Significant anemia noted during routine labs. H/H [...] hematemesis. (Stools are black from iron po) Orders: - CBC with auto differential; Future - Iron profile w/ IBC; Future - Ferritin; Future - Comprehensive metabolic panel; Future SOB (shortness of breath) on exertion (R06.02) Assessment & Plan: Appears to be improving since recving 3 units and H/H stabilized. Will monitor. If returns, may reschedule with Cardio. Essential hypertension (I10) Assessment & Plan: Bp is stable/in acceptable range for any co-morbidities. Encouraged to limit sodium intake and exercise for weight control. Continue lisinopril 10mg. Monitor closely Menorrhagia with regular cycle (N92.0) Assessment & Plan: History of menorrhagia but has been amenorrheic with DepoProvera. Obesity (BMI 30-39.9) (E66.9) Assessment & Plan: [...] tablet (10 mg total) by mouth daily - ferrous sulfate 325 mg (65 mg of elemental iron) tablet; Take 1 tablet (325 mg total) by mouth 2 (two) times a day Starr Bran PA-C documented in this encounter Miscellaneous Notes * Assessment & Plan Note - Starr Bran PA - 10/09/2020 7:48 PM CDT Associated Problem(s): Perimenopausal menorrhagia (Resolved 08/31/2021) History of menorrhagia but has been amenorrheic with DepoProvera. * Assessment & Plan Note - Starr Bran PA - 10/09/2020 7:41 PM CDT Associated Problem(s): Iron deficiency anemia due to chronic blood loss Significant anemia noted during routine labs. H/H [...] hematemesis. (Stools are black from iron po) * Assessment & Plan Note - Starr Bran PA - 10/09/2020 7:39 PM CDT Associated Problem(s): Essential hypertension Bp is stable/in acceptable range for any co-morbidities. Encouraged to limit sodium intake and exercise for weight control. Continue lisinopril 10mg. Monitor closely * Assessment & Plan Note - Starr Bran PA - 10/09/2020 7:39 PM CDT Associated Problem(s): PHAN (dyspnea on exertion) Appears to be improving since recving 3 units and H/H stabilized. Will monitor. If returns, may reschedule with Cardio. * Result Encounter Note - Starr Bran PA - 10/08/2020 4:47 PM RESEARCH ANALYST Let pt know her labs look GREAT! Hcb was as low as 4.6 Left hospital at 8.3 and most recent labs was 9.5. Iron panel is now in normal range--in the middle of normal, not low normal. She still needs to followup with GI but her labs are very stable since getting blood. ARCH ANALYST * Assessment & Plan Note - Flaco Morales MA - 10/04/2020 3:59 PM RESEARCH ANALYST Associated Problem(s): BMI 35.0-35.9,adult (Resolved 11/15/2020) Obesity is unchanged. Discussed the patient's BMI. The BMI is above average. BMI management plan is completed. BMI Follow-up includes: nutrition counseling, exercise counseling and education provided. ARCH ANALYST * Assessment & Plan Note - Flaco Morales MA - 10/04/2020 3:59 PM RESEARCH ANALYST Associated Problem(s): Obesity (BMI 30-39.9) (Resolved 11/15/2020) Obesity is unchanged. Discussed the patient's BMI. The BMI is above average. BMI management plan is completed. BMI Follow-up includes: nutrition counseling, exercise counseling and education provided. ARCH ANALYST documented in this encounter Plan of Treatment Not on file documented as of this encounter Procedures Procedure Name Priority Date/Time Associated Diagnosis Comments IRON PROFILE W/ IBC Routine 10/07/2020 1 1:35 AM RESEARCH ANALYST Iron deficiency anemia due to chronic blood loss CBC WITH AUTO DIFFERENTIAL Routine 10/07/2020 11:35 AM RESEARCH ANALYST Iron deficiency anemia due to chronic blood loss FERRITIN Routine 10/07/2020 11:35 AM RESEARCH ANALYST Iron deficiency anemia due to chronic blood loss COMPREHENSIVE METABOLIC PANEL Routine 10/07/2020 11:35 AM RESEARCH ANALYST Iron deficiency anemia due to chronic blood loss documented in this encounter Results * (ABNORMAL) Comprehensive metabolic panel (10/07/2020 11:35 AM RESEARCH ANALYST) Glucose 134(H) 65 - 99 mg/dL [facility] - 01 BUN 11 6 - 24 mg/dL [facility] - 01 Creatinine, Serum 0.63 0.57 - 1.00 mg/dL [facility] - 01 eGFR If NonAfricn Am 101 >59 mL/min/1.7 3 [facility] - 01 eGFR If Africn Am 116 >59 mL/min/1.7 3 [facility] - 01 BUN/creat ratio 17 9 - 23 [facility] - 01 Sodium 142 134 - 144 mmol/L [facility] - 01 Potassium, sr 3.9 3.5 - 5.2 mmol/L [facility] - 01 Chloride 109(H) 96 - 106 mmol/L [facility] - 01 CO2 18(L) 20 - 29 mmol/L [facility] - 01 Calcium 9.3 8.7 - 10.2 mg/dL [facility] - 01 Protein, sr 7.1 6.0 - 8.5 g/dL [facility] - 01 Albumin 4.4 3.8 - 4.9 g/dL [facility] - 01 Globulin, Total 2.7 1.5 - 4.5 g/dL [facility] - 01 A/G Ratio 1.6 1.2 - 2.2 [facility] - 01 Bilirubin, Total 0.6 0.0 - 1.2 mg/dL [facility] - 01 Alk phos 74 39 - 117 IU/L [facility] - 01 AST 13 0 - 40 IU/L [facility] - 01 ALT 9 0 - 32 IU/L [facility] - 01 Blood specimen (specimen) 10/07/2020 11:35 AM RESEARCH ANALYST 10/07/2020 Narrative [facility] - 10/08/2020 9:36 AM RESEARCH ANALYST Performed at: ??01 - [facility] ??[id number] Denture Model Maker: Parveen Lofton PhD, Phone: ??[phone] Starr SALVADOR LAB BLOOD ORDERABLES Final Result [facility] - 01 * Ferritin (10/07/2020 11:35 AM RESEARCH ANALYST) Ferritin 55 15 - 150 ng/mL [facility] - 01 Blood specimen (specimen) 10/07/2020 11:35 AM RESEARCH ANALYST 10/07/2020 Narrative [facility] - 10/08/2020 9:36 AM RESEARCH ANALYST Performed at: ??01 - [facility] ??[id number] Denture Model Maker: Parveen Lofton PhD, Phone: ??[phone] Starr SALVADOR LAB BLOOD ORDERABLES Final Result Performing Organization Address City/[facility]/ZIP Co de Phone Number [facility] - * Iron profile w/ IBC (10/07/2020 11:35 AM RESEARCH ANALYST) Iron Bind.Cap.(TIBC) 396 250 - 450 ug/dL [facility] - 01 UIBC 275 131 - 425 ug/dL [facility] - 01 Iron 121 27 - 159 ug/dL [facility] - 01 Iron saturation 31 15 - 55 % [facility] - 01 Blood specimen (specimen) 10/07/2020 11:35 AM RESEARCH ANALYST 10/07/2020 Narrative [facility] - 10/08/2020 9:36 AM RESEARCH ANALYST Performed at: ??01 - [facility] [address] [place] ??[id number] Denture Model Maker: Parveen Lofton PhD, Phone: ??[phone] Starr SALVADOR LAB BLOOD ORDERABLES Final Result [facility] - 01 * (ABNORMAL) CBC with auto differential (10/07/2020 11:35 AM RESEARCH ANALYST) WBC 4.9 3.4 - 10.8 x10E3/uL [facility] - 01 RBC 4.01 3.77 - 5.28 x10E6/uL [facility] - 01 Comment: Polychromasia present Anisocytosis present. Hgb 9.5(L) 11.1 - 15.9 g/dL [facility] - 01 Hct 31.7(L) 34.0 - 46.6 % [facility] - 01 MCV 79 79 - 97 fL [facility] - 01 MCH 23.7(L) 26.6 - 33.0 pg [facility] - 01 MCHC 30.0(L) 31.5 - 35.7 g/dL [facility] - 01 Platelets 273 150 - 450 x10E3/uL [facility] - 01 Neutrophils pct 68 Not Estab. % [facility] - 01 Lymphs pct 21 Not Estab. % [facility] - 01 Monocytes pct 7 Not Estab. % [facility] - 01 Eosinophils pct 3 Not Estab. % [facility] - 01 Basophil [...] 0.0 - 0.1 x10E3/uL [facility] - 01 Hematology Comments: Note: [facility] - 01 Comment:Verified by microsco pic examination. Blood specimen (specimen) 10/07/2020 11:35 AM RESEARCH ANALYST 10/07/2020 Narrative [facility] - 10/08/2020 9:36 AM RESEARCH ANALYST Performed at: ??01 - [facility] [address] ??[id number] Denture Model Maker: Parveen Lofton PhD, Phone: ??[phone] Starr SALVADOR LAB BLOOD ORDERABLES Final Result [facility] - 01 documented in this encounter Visit Diagnoses Diagnosis Iron deficiency anemia due to chronic blood loss- Primary Iron deficiency anemia secondary to blood loss (chronic) SOB (shortness of breath) on exertion Shortness of breath Essential hypertension Unspecified essential hypertension Menorrhagia with regular cycle Obesity (BMI 30-39.9) BMI 35.0-35.9,adult documented in this encounter Discontinued Medications Medication Sig Discontinue Reason Start Date End Da te lisinopriL (PRINIVIL,ZESTRIL) 10 mg tablet Take 1 tablet (10 mg total) by mouth daily Reorder 06/06/2020 10/09/2020 ferrous sulfate 325 mg (65 mg of elemental iron) tablet 325 mg Reorder 09/30/2020 10/09/2020 documented as of this encounter Historical Medications * This list may reflect changes made after this encounter. Medication Sig Dispense Quantity Refills Last Filled Start D ate End Date ferrous sulfate 325 mg (65 mg of elemental iron) tablet 325 mg 09/30/2020 10/09/2020 added in this encounter Care Teams Restaurant Lead Relationship Specialty Start Date End Date Starr Bran PA [address] [facility] [address] [place] [address] PCP - General Internal Medicine 12/30/18 documented as of this encounter
--- OUTSIDE RECORDS SUMMARY | 2024-07-18 20:38 | XMS_ITS | Encounter Summary ---
Author Organization [facility] Address [address] [place] [address] Care Team Providers Care Trolley Operator Name Role Phone Starr Bran Primary Care Provider +1- [phone] Reason for Visit * Reason Onset Date Comments Covid-19 Test 02/08/2020 Encounter Details Date Type Department Care Team (Late st Contact Info) Description 02/08/2020 Telephone [facility] Family Medicine [address] [place] [address] Starr Bran PA [address] [place] [address] Covid-19 Test Social History Tobacco Use Types Packs/Day Years Used Date Smoking Tobacco: Never PHQ-2 Answer Date Recorded PHQ-2 Score 0 03/18/2019 Comments Unknown Sex and Gender Information Value Date Recorded Sex Assigned at Not on file Legal Sex Female 10:31 AM BRANCH LEAD Gender Identity Female 02/02/2021 7:25 AM CDT Sexual Orientation Straight 02/02/2021 7: 25 AM CDT documented as of this encounter Miscellaneous Notes * Telephone Encounter - Flaco Morales MA - 02/08/2020 6:12 PM CDT Pt has been inform. * Telephone Encounter - Starr Bran PA - 02/08/2020 1:20 PM CDT Let pt know she can be tested thru [facility] in [place]. I will place the order. Please fax and call the testing location per protocol and they will contact the patient. * Telephone Encounter - Delmi Cain - 02/08/2020 11:21 AM CDT Patient had close exposure to someone that tested positive for Covid-19, they worked together. Patient's place of employment is not allowing patient back until she gets tested. Patient stated that she is not having any sxs at this time. Patient stated that the employee tested positive last week. documented in this encounter Plan of Treatment Scheduled Orders Name Type Priority Associated Diagnoses Orde r Schedule COVID-19 Coronavirus RNA Nasopharyngeal Microbiology Routine Close Exposure To Covid-19 Virus Expected: 02/08/2020, Expires: 02/07/2021 documented as of this encounter Visit Diagnoses Diagnosis Close exposure to COVID-19 virus- Primary documented in this encounter Additional Health Concerns Infection Onset Date Last Indicated Resolved Time Exposure, COVID-19 Comment:Added automatically based on COVID19 lab answers indicating exposure risk 02/08/2020 02/08/2020 02/23/2020 3:05 AM C DT documented as of this encounter Care Teams Trolley Operator Relationship Specialty Start Date End Date Starr Bran PA [address] [facility] [address] [place] [address] PCP - General Internal Medicine 12/30/18 documented as of this encounter
--- OUTSIDE RECORDS SUMMARY | 2024-07-18 20:38 | XMS_ITS | Encounter Summary ---
Author Organization [facility] Address [address] [place] [address] Care Team Providers Care Reference Test Clerk Name Role Phone Starr Bran Primary Care Provider +1- [phone] Encounter Details Date Type Department Care Team (Late st Contact Info) Description 02/08/2020 10:25 PM CDT Lab [place] [id number] Social History Tobacco Use Types Packs/Day Years Used Date Smoking Tobacco: Never PHQ-2 Answer Date Recorded PHQ-2 Score 0 03/18/2019 Comments Unknown Sex and Gender Information Value Date Recorded Sex Assigned at Not on file Legal Sex Female 10:31 AM ZONE MAINTENANCE TECHNICIAN Gender Identity Female 02/02/2021 7:25 AM CDT Sexual Orientation Straight 02/02/2021 7: 25 AM CDT documented as of this encounter Plan of Treatment Not on file documented as of this encounter Procedures Procedure Name Priority Date/Time Associated Diagnosis Comments COVID-19 CORONAVIRUS RNA Routine 02/08/2020 4:41 PM CDT documented in this encounter Results * COVID-19 Coronavirus RNA Nasopharyngeal (02/08/2020 4:41 PM CDT) COVID-19 RNA Not Detected [facility] Comment: Interpretive Data Testing performed at [facility]. The 2018-Novel Coronavirus Assay (COVID-19) Real Time RT-PCR assay is for in vitro diagnostic use under FDA emergency use authorization only. A negative RT-PCR result does not preclude infection with COVID-19 and should not be used as the sole basis for treatment or other patient management decisions. Additional sample types have been validated according to CLIA regulations. ?? Current Interpretive Data was last revised on 2019. Nasopharyngeal 02/08/2020 4: 41 PM CDT 02/09/2020 12:03 AM CDT us Notinfile Unknown LAB MICROBIOLOGY - GENERAL ORD ERABLES Final Result [facility] Department [place] [address] documented in this encounter Visit Diagnoses Not on filedocumented in this encounter Additional Health Concerns Infection Onset Date Last Indicated Resolved Time Exposure, COVID-19 Comment:Added automatically based on COVID19 lab answers indicating exposure risk 02/08/2020 02/08/2020 02/23/2020 3:05 AM C DT documented as of this encounter Care Teams Reference Test Clerk Relationship Specialty Start Date End Date Starr Bran PA [address] [address] PCP - General Internal Medicine 12/30/18 documented as of this encounter
--- OUTSIDE RECORDS SUMMARY | 2024-07-18 20:38 | XMS_ITS | Encounter Summary ---
Author Organization [facility] Healthcare Address [address] [place] [address] Care Team Providers Care Supervisor Rose Grading Name Role Phone Starr Bran Primary Care Provider [phone] Encounter Details Date Type Department Care Team (Late st Contact Info) Description 09/28/2020 9:55 AM CHIEF ANALYTICS OFFICER - 09/30/2020 9:25 AM CHIEF ANALYTICS OFFICER Hospital Encounter [facility] ADMIT Unknown, Daysi Chavez MD [facility] [place] [address] Discharge Disposition: Discharge to home or self care Social History Tobacco Use Types Packs/Day Years Used Date Smoking Tobacco: Never Smokeless Tobacco: Never AUDIT-C Answer Date Recorded Frequency of Alcohol Consumption Not on file 09/20/2020 Average Number of Drinks Not on file 021 Q3: How often do you have si x or more drinks on one occasion? Never 09/20/2020 PHQ-2 Answer Date Recorded PHQ-2 Total Score (If total score is 3 or more points, staff should administer the PHQ-9) 0 09/20/2020 Comments Unknown Sex and Gender Information Value Date Recorded Sex Assigned at Not on file Legal Sex Female 10:31 AM CHIEF ANALYTICS OFFICER Gender Identity Female 02/02/2021 7:25 AM CDT Sexual Orientation Straight 02/02/2021 7: 25 AM CDT documented as of this encounter Last Filed Vital Signs Vital Sign Reading Time Taken Comments Blood Pressure 155/80 09/28/2020 2:05 PM CHIEF ANALYTICS OFFICER Pulse 85 09/28/2020 2:05 PM CHIEF ANALYTICS OFFICER Temperature 37.4 ??C (99.4 ??F) 09/28/2020 2:05 PM CS T Respiratory Rate - - Oxygen Saturation 98% 09/28/2020 2:05 PM CHIEF ANALYTICS OFFICER Inhaled Oxygen Concentration - - Weight 92.5 kg (203 lb 14.8 oz) 09/28/2020 2:05 PM CHIEF ANALYTICS OFFICER Height 160 cm (5' 3 ) 09/28/2020 2:05 PM CHIEF ANALYTICS OFFICER Body Mass Index 36.12 09/28/2020 2:05 PM CHIEF ANALYTICS OFFICER documented in this encounter Medications at Time of Discharge multivitamin tablet daily ferrous sulfate 325 mg (65 mg of elemental iron) tablet 325 mg 09/30/2020 1 lisinopriL (PRINIVIL,ZESTRI L) 10 mg tablet Take 1 tablet (10 mg total) by mouth daily 90 tablet 3 06/06/2020 1 medroxyPROGESTER one (DEPO-PROVERA) 400 mg/mL suspension Inject 400 mg/mL into the muscle as instructed 1 documented as of this encounter Discharge Disposition Disposition Code Departure Means Destination Discharge to home or self care documented in this encounter Plan of Treatment Not on file documented as of this encounter Procedures Procedure Name Priority Date/Time Associated Diagnosis Comments SCAN - LABS 10/01/2020 12:00 AM CHIEF ANALYTICS OFFICER HEMOGLOBIN AND HEMATOCRIT Routine 09/30/2020 12:20 AM CHIEF ANALYTICS OFFICER HEMOGLOBIN AND HEMATOCRIT Routine 09/29/2020 5:56 PM CHIEF ANALYTICS OFFICER GUAIAC OCCULT BLOOD, FECAL, NOT FOR NEOPLASM SCREENING Routine 09/29/2020 9:41 AM CHIEF ANALYTICS OFFICER CBC WITH AUTO DIFFERENTIAL Routine 09/29/2020 5:11 AM CHIEF ANALYTICS OFFICER COMPREHENSIVE METABOLIC PANEL Routine 09/29/2020 5:[address]NALYTICS OFFICER [address] ABDOMEN PELVIS W CONTRAST 09/29/2020 12:00 AM CHIEF ANALYTICS OFFICER HEMOGLOBIN Routine 09/28/2020 8:08 PM CHIEF ANALYTICS OFFICER HEMOGLOBIN AND HEMATOCRIT Routine 09/28/2020 5:27 PM CHIEF ANALYTICS OFFICER IRON PROFILE W/ IBC Routine 09/28/2020 9 :09 AM CHIEF ANALYTICS OFFICER TRANSFERRIN Routine 09/28/2020 9:09 AM CHIEF ANALYTICS OFFICER TSH Routine 09/28/2020 9:09 AM CHIEF ANALYTICS OFFICER IRON Routine 09/28/2020 9:09 AM CHIEF ANALYTICS OFFICER FERRITIN Routine 09/28/2020 9:09 AM CHIEF ANALYTICS OFFICER B ABO / RH CONFIRMATION TESTING Routine 09/28/2020 8:29 AM CHIEF ANALYTICS OFFICER RBC TRANSFUSION ORDER Routine 09/28/2020 7:46 AM CHIEF ANALYTICS OFFICER CBC WITH AUTO DIFFERENTIAL Routine 09/28/2020 7:46 AM CHIEF ANALYTICS OFFICER RETICULOCYTES Routine 09/28/2020 7:46 AM CHIEF ANALYTICS OFFICER ANTIBODY SCREEN Routine 09/28/2020 7:46 AM CHIEF ANALYTICS OFFICER TYPE AND SCREEN Routine 09/28/2020 7:46 AM CHIEF ANALYTICS OFFICER COMPREHENSIVE METABOLIC PANEL Routine 09/28/2020 7:46 AM CHIEF ANALYTICS OFFICER documented in this encounter Results * SCAN - LABS (10/01/2020 12:00 AM CHIEF ANALYTICS OFFICER) Narrative 10/01/2020 12:00 AM CHIEF ANALYTICS OFFICER Ordered by an unspecified provider. us Historical Provider Final Res ult * (ABNORMAL) Hemoglobin and hematocrit (09/30/2020 12:20 AM CHIEF ANALYTICS OFFICER) Hemoglobin 8.3(L) 11.9 - 15.5 g/dL [facility] Hct 27.1(L) 35.6 - 45.5 % [facility] 09/30/2020 12:2 0 AM CHIEF ANALYTICS OFFICER 09/30/2020 12:24 AM CHIEF ANALYTICS OFFICER Narrative Resulting Agency Comment IN us Kym Franklin MD LAB BLOOD ORDER GAYATRI Final Result [address] [phone] * (ABNORMAL) Hemoglobin and hematocrit (09/29/2020 5:56 PM CHIEF ANALYTICS OFFICER) Hemoglobin 8.5(L) 11.9 - 15.5 g/dL [facility] Comment: Results reviewed Hct 28.1(L) 35.6 - 45.5 % [facility] 09/29/2020 5:56 PM CHIEF ANALYTICS OFFICER 09/29/2020 6:53 PM CHIEF ANALYTICS OFFICER Narrative Resulting Agency Comment IN us Daysi Grewal MD LAB BLOOD ORDERABLES Fin al Result Performing Organization Address City/[facility]/ZIP Co de Phone Number [address] [phone] * Guaiac occult blood, fecal, non-neoplasm (09/29/2020 9:41 AM CHIEF ANALYTICS OFFICER) Stool Occult Blood POSITIVE NEGATIVE [facility] 09/29/2020 9:41 AM CHIEF ANALYTICS OFFICER 09/29/2020 11:08 AM CHIEF ANALYTICS OFFICER Narrative [facility] - 09/29/2020 11:16 AM CHIEF ANALYTICS OFFICER Collected By bjb Resulting Agency Comment IN us Immanuel Wyatt MD LAB BODY FLUIDS AND STOOLS ORDER GAYATRI Final Result [address] [phone] * (ABNORMAL) CBC with auto differential (09/29/2020 5:11 AM CHIEF ANALYTICS OFFICER) WBC 6.0 3.8 - 9.9 X10 3/ul [facility] RBC 3.26(L) 3.90 - 5.20 x10 6/ul [facility] Comment: Results reviewed Hemoglobin 6.8(LL) 11.9 - 15.5 g/dL [facility] Comment: CRITICAL VALUE CALLED and REPEATED. at:0714 09/29/20 by:Daian Llamas to:Joana [id number] Hct 23.4(L) 35.6 - 45.5 % [facility] MCV 71.8(L) 81.3 - 96.4 fl [facility] Comment: Results reviewed MCH 20.9(L) 27.1 - 33.3 pg [facility] MCHC 29.1(L) 32.3 - 35.7 g/dl [facility] RDW 23.8(H) 11.1 - 14.9 % [facility] Plt Count 275 150 - 400 x10 3/ul [facility] MPV 10.2 9.1 - 12.3 fl [facility] Neut % 65.9 % [facility] Immature Gran % 0.3 % [facility] Lymph % 24.5 % [facility] Erie % 6.8 % [facility] Eos % 2.0 % [facility] AUTO BASO % 0.5 % [facility] NEUTROPHIL ABS # 4.0 1.7 - 6.5 x10 3/ul [facility] Immature Gran # 0.0 0.0 - 0.1 x10 3/ul [facility] Absolute Lymphs (auto) 1.5 0.8 - 3.3 x10 3/ul [facility] Absolute Monos (auto) 0.4 0.2 - 0.8 x10 3/ul [facility] Absolute Eos (auto) 0.1 0.0 - 0.5 x10 3/ul [facility] BASOPHIL ABS # 0.0 0.0 - 0.1 x10 3/ul [facility] Nucleat RBC Rel Count 0.0 #/100WBC [facility] NRBC abs 0.00 0.00 - 0.01 x10 3/ul [facility] Absolute Neutrophils 4,000 200 - 8,000 /ul [facility] 09/29/2020 5:11 AM CHIEF ANALYTICS OFFICER 09/29/2020 5:59 AM CHIEF ANALYTICS OFFICER Narrative Resulting Agency Comment IN us Daysi Grewal MD LAB BLOOD ORDERABLES Fin al Result [facility] [address] [phone] * (ABNORMAL) Comprehensive metabolic panel (09/29/2020 5:11 AM CHIEF ANALYTICS OFFICER) Sodium 144 135 - 145 mmol/L [facility] Potassium 3.6 3.3 - 5.1 mmol/L [facility] Chloride 112(H) 96 - 108 mmol/L [facility] Carbon Dioxide 23 22 - 32 mmol/L [facility] Anion Gap 9 7 - 16 [facility] Glucose 96 70 - 100 mg/dL [facility] BUN 7(L) 8 - 25 mg/dL [facility] Creatinine 0.5 0.5 - 1.1 mg/dL [facility] Comment: NOTE: Estimated GFR (Cockroft-Gault) will NOT be calculated unless patient Height and Weight were entered. Also, Kidney Disease Stage (GFR) and Estimated GFR (Cockroft-Gault) will NOT be calculated if Creatinine result is <0.2. Kidney Disease Stage >90 mL/MIN [facility] Comment: NOTE; ??The GFR is an estimated [...] failure or on dialysis Est GFR (Cockcroft-G) 136 ml/MIN [facility] Comment: Estimated GFR(Cockroft-Gault)is used to calculate patient medication dosage Calcium 10.3 8.6 - 10.3 mg/dL [facility] Total Protein 6.6 6.4 - 8.3 g/dL [facility] Albumin 4.0 3.5 - 5.0 g/dL [facility] Globulin 2.6 2.3 - 3.5 gm/dL [facility] Albumin/Globulin Ratio 1.5 1.1 - 1.8 [facility] Total Bilirubin 1.3(H) 0.0 - 1.2 mg/dL [facility] Comment: Results reviewed AST 9 0 - 32 U/L [facility] ALT 6 0 - 33 U/L [facility] Alkaline Phosphatase 67 35 - 104 U/L [facility] 09/29/2020 5:11 AM CHIEF ANALYTICS OFFICER 09/29/2020 5:59 AM CHIEF ANALYTICS OFFICER Narrative Resulting Agency Comment IN us Daysi Grewal MD LAB BLOOD ORDERABLES Fin al Result [facility] [address] [place] [address], [facility] [phone] * CT Abdomen Pelvis W Contrast (09/29/2020 12:00 AM CHIEF ANALYTICS OFFICER) Anatomical Region Laterality Modality Body N/A Computed Tomogra phy 09/29/2020 12:4 8 PM CHIEF ANALYTICS OFFICER Narrative 09/29/2020 12:50 PM CHIEF ANALYTICS OFFICER Patient Name: VIKTORIYA BELL ?Ordering Dr: Kym Franklin MD ?? D.O.B: 1965 ? Exam Date: 09/29/20 ?? 0000 ?? Age: 55 ?Sex: Female ? MR#: [id number] ?? Loc: ??C129-01 ? RADIOLOGY REPORT ?? Order #[id number] ?? CT Scan ? CT Abd/Pelvis W IV Contrast ? Signed ?? EXAM DESCRIPTION: ?? CT Abd/Pelvis W IV Contrast ? REASON FOR STUDY: ?? Severe anemia found on routine lab work. ??Severe fatigue. ? Evaluate for malignancy. ? TECHNIQUE: ??CT scan of the abdomen and pelvis performed with intravenous and ? without oral contrast using helical scanning technique with dynamic ?? intravenous contrast injection. Reconstructed coronal and sagittal MPR images ?? reviewed. All images stored on PACS. ? Automated exposure control was used as a dose optimization technique for this ?? examination. ? CONTRAST TYPE/DOSE: ?? 100 mL of Optiray 350 injected via ??the right ?? antecubital fossa vein ? COMPARISON: ?? None available ? FINDINGS: ? LOWER CHEST: ??No significant pulmonary abnormalities. No effusion. ? LIVER: ??Normal size. ??No identified cystic or solid masses. ? GALLBLADDER: ??No stones identified. No wall thickening or inflammatory changes. ? BILE DUCTS: ??No intrahepatic or extrahepatic ductal dilatation. ? SPLEEN: ??Normal size. ??No focal lesions. ? PANCREAS: ??No identified cystic or solid masses. No significant ?? calcifications. No adjacent inflammation or peripancreatic fluid collections. ?? Pancreatic duct not dilated. ? ADRENALS: ??Normal. ? KIDNEYS/URINARY TRACT: ??No identified significant cystic or solid masses. No ?? visualized stones. No hydronephrosis or hydroureter. Symmetric enhancement. ? Urinary bladder is unremarkable. ? GI: ??No dilated bowel loops. No obvious wall thickening. ??Normal appendix. ??No ?? significant diverticular disease. ? PERITONEUM: ??No ascites or free air. ? RETROPERITONEUM: ??No mass or adenopathy. ? REPRODUCTIVE: ??No significant abnormality. ? VASCULATURE: ??No abdominal aortic aneurysm. ? MUSCULOSKELETAL: ??Mild thoracolumbar spondylosis. ??Bilateral L5 pars defect. ? OTHER: ??No other abnormality. ? IMPRESSION: ?? No acute findings identified to suggest etiology of the ?? patient's symptoms. ? L5 bilateral pars defect. ? THIS IS AN ELECTRONICALLY VERIFIED FINAL REPORT ?? 09/29/2020 12:50 PM - Electronically signed by Ganga Carroll M.D. ?? Ganga Carroll M.D. ? JA ?? D: ??09/29/2020 12:50 PM ?? T: ? Report ID: [id number] ?? Reading Location: ??[id number] ? REPORT ELECTRONICALLY SIGNED IN OTHER VENDOR SYSTEM ?? Resulting Agency Comment I Procedure Note Ganga Carroll MD - 09/29/2020 Patient Name: VIKTORIYA BELL Dr: Kym Franklin MD D.O.B: 1965 Exam Date: 09/29/20 0000 Age: 55 Sex: Female MR#: [id number] Loc: C129-01 RADIOLOGY REPORT Order #[id number] CT Scan CT Abd/Pelvis W IV Contrast Signed EXAM DESCRIPTION: CT Abd/Pelvis W IV Contrast REASON FOR STUDY: Severe anemia found on routine lab work. Severefatigue. Evaluate for malignancy. TECHNIQUE: CT scan of the abdomen and pelvis performed with intravenousand without oral contrast using helical scanning technique with dynamic intravenous contrast injection. Reconstructed coronal and sagittal MPRimages reviewed. All images stored on PACS. Automated exposure control was used as a dose optimization technique forthis examination. CONTRAST TYPE/DOSE: 100 mL of Optiray 350 injected via the right antecubital fossa vein COMPARISON: None available FINDINGS: LOWER CHEST: No significant pulmonary abnormalities. No effusion. LIVER: Normal size. No identified cystic or solid masses. GALLBLADDER: No stones identified. No wall thickening or inflammatorychanges. BILE DUCTS: No intrahepatic or extrahepatic ductal dilatation. SPLEEN: Normal size. No focal lesions. PANCREAS: No identified cystic or solid masses. No significant calcifications. No adjacent inflammation or peripancreatic fluidcollections. Pancreatic duct not dilated. ADRENALS: Normal. KIDNEYS/URINARY TRACT: No identified significant cystic or solid masses.No visualized stones. No hydronephrosis or hydroureter. Symmetricenhancement. Urinary bladder is unremarkable. GI: No dilated bowel loops. No obvious wall thickening. Normalappendix. No significant diverticular disease. PERITONEUM: No ascites or free air. RETROPERITONEUM: No mass or adenopathy. REPRODUCTIVE: No significant abnormality. VASCULATURE: No abdominal aortic aneurysm. MUSCULOSKELETAL: Mild thoracolumbar spondylosis. Bilateral L5 parsdefect. OTHER: No other abnormality. IMPRESSION: No acute findings identified to suggest etiology of the patient's symptoms. L5 bilateral pars defect. THIS IS AN ELECTRONICALLY VERIFIED FINAL REPORT 09/29/2020 12:50 PM - Electronically signed by Ganga RAZO T: Report ID: [id number] Reading Location: [place] [id number] REPORT ELECTRONICALLY SIGNED IN OTHER VENDOR SYSTEM Kym Franklin MD IMG CT PROCEDUR ES Final Result * (ABNORMAL) Hemoglobin (09/28/2020 8:08 PM CHIEF ANALYTICS OFFICER) Hemoglobin 7.1(L) 11.9 - 15.5 g/dL [facility] 09/28/2020 8:08 PM CHIEF ANALYTICS OFFICER 09/28/2020 8:16 PM CHIEF ANALYTICS OFFICER Narrative Resulting Agency Comment IN Daysi Grewal MD LAB BLOOD ORDERABLES Fin al Result [facility] [address] [phone] * (ABNORMAL) Hemoglobin and hematocrit (09/28/2020 5:27 PM CHIEF ANALYTICS OFFICER) Hemoglobin 8.3(L) 11.9 - 15.5 g/dL [facility] Comment: Results reviewed Hct 27.4(L) 35.6 - 45.5 % [facility] 09/28/2020 5:27 PM CHIEF ANALYTICS OFFICER 09/28/2020 5:32 PM CHIEF ANALYTICS OFFICER Narrative Resulting Agency Comment IN us Daysi Grewal MD LAB BLOOD ORDERABLES Fin al Result Performing Organization Address [facility] Co de Phone Number [address] [phone] * Transferrin (09/28/2020 9:09 AM CHIEF ANALYTICS OFFICER) TRANSFERRIN, SERUM 328 200 - 400 mg/dL [facility] Comment: Performed By: [employer] [address] [place] [address] Twill Cutter: Kelley Joseph MD 09/28/2020 9:09 AM CHIEF ANALYTICS OFFICER 09/28/2020 9:12 AM CHIEF ANALYTICS OFFICER Narrative Resulting Agency Comment IN Carla SALVADOR LAB BLOOD ORDERABLES Final R esult Performing Organization Address [facility] de Phone Number [facility] [address] [place] [address] * TSH (09/28/2020 9:09 AM CHIEF ANALYTICS OFFICER) TSH 1.79 0.27 - 4.20 uIU/mL [facility] 09/28/2020 9:09 AM CHIEF ANALYTICS OFFICER 09/28/2020 9:12 AM CHIEF ANALYTICS OFFICER Narrative Resulting Agency Comment IN us Daysi Grewal MD LAB BLOOD ORDERABLES Fin al Result Performing Organization Address City/[facility] Co de Phone Number [address] [phone] * (ABNORMAL) Iron profile w/ IBC (09/28/2020 9:09 AM CHIEF ANALYTICS OFFICER) Iron 8(L) 37 - 145 ug/dL [facility] TIBC 392 228 - 428 ug/dL [facility] Transferrin % Sat 2(L) 20 - 50 % [facility] 09/28/2020 9:09 AM CHIEF ANALYTICS OFFICER 09/28/2020 9:12 AM CHIEF ANALYTICS OFFICER Narrative Resulting Agency Comment IN us Daysi Grewal MD LAB BLOOD ORDERABLES Fin al Result Performing Organization Address City/[facility]/ZIP Co de Phone Number [address] [phone] * (ABNORMAL) Ferritin (09/28/2020 9:09 AM CHIEF ANALYTICS OFFICER) Ferritin 4.0(L) 15.0 - 150.0 ng/mL [facility] 09/28/2020 9:09 AM CHIEF ANALYTICS OFFICER 09/28/2020 9:12 AM CHIEF ANALYTICS OFFICER Narrative Resulting Agency Comment IN us Daysi Grewal MD LAB BLOOD ORDERABLES Fin al Result Performing Organization Address [facility] Co de Phone Number [address] [phone] * (ABNORMAL) Iron level (09/28/2020 9:09 AM CHIEF ANALYTICS OFFICER) Iron 8(L) 37 - 145 ug/dL [facility] 09/28/2020 9:09 AM CHIEF ANALYTICS OFFICER 09/28/2020 9:12 AM CHIEF ANALYTICS OFFICER Narrative Resulting Agency Comment ER us Carla SALVADOR LAB BLOOD ORDERABLES Final R esult Performing Organization Address City/[facility]/ZIP Co de Phone Number [address] [phone] * ABO / Rh Confirmation Testing (09/28/2020 8:29 AM CHIEF ANALYTICS OFFICER) Blood Type Confirm ABP [facility] 09/28/2020 8:29 AM CHIEF ANALYTICS OFFICER 09/28/2020 8:33 AM CHIEF ANALYTICS OFFICER Narrative Resulting Agency Comment ER us Mike Luna MD LAB BLOOD ORDERABLES Final Result Performing Organization Address [facility] de Phone Number [address] [phone] * RBC TRANSFUSION ORDER (09/28/2020 7:46 AM CHIEF ANALYTICS OFFICER) RBC TRANSFUSION ORDER [id number] ??ABN ? RBCORDER ?TRANSFUSED ? 09/28/20 1404 ??[id number] ??ABN ? RBCORDER ?TRANSFUSED ? 09/28/20 0924 ??[id number] ??ABP ? RBCORDER ?TRANSFUSED ? 09/29/20 1325 [facility] 09/28/2020 7:46 AM CHIEF ANALYTICS OFFICER 09/28/2020 8:40 AM CHIEF ANALYTICS OFFICER Narrative Resulting Agency Comment IN us Carla SALVADOR LAB BLOOD ORDERABLES Final R esult Performing Organization Address [facility] de Phone Number [address] [phone] * (ABNORMAL) Reticulocyte Count (09/28/2020 7:46 AM CHIEF ANALYTICS OFFICER) Percent Retic 2.3(H) 0.5 - 1.5 % [facility] Reticulocyte # 0.06 x10 6/ul [facility] Immature Retic Fraction 26.4 % [facility] Retic Hgb Equivalent 14.1(L) 28.0 - 35.5 pg [facility] 09/28/2020 7:46 AM CHIEF ANALYTICS OFFICER 09/28/2020 7:51 AM CHIEF ANALYTICS OFFICER Narrative Resulting Agency Comment IN Daysi Grewal MD LAB BLOOD ORDERABLES Fin al Result Performing Organization Address [facility]/ZIP Co de Phone Number [address] [phone] * Antibody screen (09/28/2020 7:46 AM CHIEF ANALYTICS OFFICER) Antibody Screen NEGATIVE [facility] 09/28/2020 7:46 AM CHIEF ANALYTICS OFFICER 09/28/2020 7:51 AM CHIEF ANALYTICS OFFICER Narrative Resulting Agency Comment ER Mike Luna MD LAB BLOOD BANK TEST O RDERABLES Final Result Performing Organization Address [facility] Co de Phone Number [address] [phone] * Type and screen (09/28/2020 7:46 AM CHIEF ANALYTICS OFFICER) Pathologist [facility] Blood Type ABP [facility] 09/28/2020 7:46 AM CHIEF ANALYTICS OFFICER 09/28/2020 7:51 AM CHIEF ANALYTICS OFFICER Narrative [facility] - 09/28/2020 8:53 AM CHIEF ANALYTICS OFFICER N Resulting Agency Comment ER Mike Luna MD LAB BLOOD BANK TEST O RDERABLES Final Result Performing Organization Address [facility] Co de Phone Number [address] [phone] * (ABNORMAL) CBC with auto differential (09/28/2020 7:46 AM CHIEF ANALYTICS OFFICER) [facility] WBC 5.2 3.8 - 9.9 X10 3/ul [facility] RBC 2.70(L) 3.90 - 5.20 x10 6/ul [facility] Hemoglobin 4.6(LL) 11.9 - 15.5 g/dL [facility] Comment: CRITICAL VALUE CALLED and REPEATED. at:0758 09/28/20 by:Michelle Jacobo to:MARCELINO [id number] Hct 17.6(L) 35.6 - 45.5 % [facility] MCV 65.2(L) 81.3 - 96.4 fl [facility] MCH 17.0(L) 27.1 - 33.3 pg [facility] MCHC 26.1(L) 32.3 - 35.7 g/dl [facility] RDW 21.2(H) 11.1 - 14.9 % [facility] Plt Count 305 150 - 400 x10 3/ul [facility] MPV 10.0 9.1 - 12.3 fl [facility] Neut % 68.2 % [facility] Immature Gran % 0.4 % [facility] Lymph % 23.8 % [facility] Erie % 5.6 % [facility] Eos % 1.4 % [facility] AUTO BASO % 0.6 % [facility] NEUTROPHIL ABS # 3.5 1.7 - 6.5 x10 3/ul [facility] Immature Gran # 0.0 0.0 - 0.1 x10 3/ul [facility] Absolute Lymphs (auto) 1.2 0.8 - 3.3 x10 3/ul [facility] Absolute Monos (auto) 0.3 0.2 - 0.8 x10 3/ul [facility] Absolute Eos (auto) 0.1 0.0 - 0.5 x10 3/ul [facility] BASOPHIL ABS # 0.0 0.0 - 0.1 x10 3/ul [facility] Nucleat RBC Rel Count 0.4 #/100WBC [facility] NRBC abs 0.02(H) 0.00 - 0.01 x10 3/ul [facility] Platelet Evaluation AGREE AGREE [facility] Comment: Slide review of platelets correlates with instrument count. Hypochromasia 3+ [facility] Anisocytosis 2+ [facility] Microcytosis 2+ [facility] Poikilocytosis 2+ [facility] Ovalocytes 2+ [facility] Absolute Neutrophils 3,500 200 - 8,000 /ul [facility] 09/28/2020 7:46 AM CHIEF ANALYTICS OFFICER 09/28/2020 7:51 AM CHIEF ANALYTICS OFFICER Narrative Resulting Agency Comment IN us Daysi Grewal MD LAB BLOOD ORDERABLES Fin al Result [facility] [address] [place] [address], [facility] [phone] * (ABNORMAL) Comprehensive metabolic panel (09/28/2020 7:46 AM CHIEF ANALYTICS OFFICER) Sodium 140 135 - 145 mmol/L [facility] Potassium 3.4 3.3 - 5.1 mmol/L [facility] Chloride 109(H) 96 - 108 mmol/L [facility] Carbon Dioxide 21(L) 22 - 32 mmol/L [facility] Anion Gap 10 7 - 16 [facility] Glucose 127(H) 70 - 100 mg/dL [facility] BUN 9 8 - 25 mg/dL [facility] Creatinine 0.6 0.5 - 1.1 mg/dL [facility] Comment: NOTE: Estimated GFR (Cockroft-Gault) will NOT be calculated unless patient Height and Weight were entered. Also, Kidney Disease Stage (GFR) and Estimated GFR (Cockroft-Gault) will NOT be calculated if Creatinine result is <0.2. Kidney Disease Stage >90 mL/MIN [facility] Comment: NOTE; ??The GFR is an estimated [...] failure or on dialysis Est GFR (Cockcroft-G) 113 ml/MIN [facility] Comment: Estimated GFR(Cockroft-Gault)is used to calculate patient medication dosage Calcium 10.4(H) 8.6 - 10.3 mg/dL [facility] Total Protein 6.9 6.4 - 8.3 g/dL [facility] Albumin 4.2 3.5 - 5.0 g/dL [facility] Globulin 2.7 2.3 - 3.5 gm/dL [facility] Albumin/Globulin Ratio 1.6 1.1 - 1.8 [facility] Total Bilirubin 0.5 0.0 - 1.2 mg/dL [facility] AST 10 0 - 32 U/L [facility] ALT 7 0 - 33 U/L [facility] Alkaline Phosphatase 71 35 - 104 U/L [facility] 09/28/2020 7:46 AM CHIEF ANALYTICS OFFICER 09/28/2020 7:51 AM CHIEF ANALYTICS OFFICER Narrative Resulting Agency Comment ER us Mike Luna MD LAB BLOOD ORDERABLES Final Result [facility] [address] [place] [address], [facility] [phone] documented in this encounter Visit Diagnoses Not on filedocumented in this encounter Care Teams Supervisor Rose Grading Relationship Specialty Start Date End Date Starr Bran PA [address] [place] [address] PCP - General Internal Medicine 12/30/18 documented as of this encounter
--- OUTSIDE RECORDS SUMMARY | 2024-07-18 20:38 | XMS_ITS | Encounter Summary ---
Author Organization [facility] Address [address] [place] [address] Care Team Providers Care Animal Cytologist Name Role Phone Starr Bran Primary Care Provider +1- [phone] Encounter Details Date Type Department Care Team (Late st Contact Info) Description 09/29/2020 Telephone [facility] Family Medicine [address] [place] [address] Starr Bran PA [address] [place] [address] Social History Tobacco Use Types [...] on file Legal Sex Female 10:31 AM CARTON GLUING MACHINE OPERATOR Gender Identity Female 02/02/2021 7:25 AM CDT Sexual Orientation Straight 02/02/2021 7: 25 AM CDT documented as of this encounter Miscellaneous Notes * Telephone Encounter - Starr Bran PA - 09/29/2020 12:59 PM CARTON GLUING MACHINE OPERATOR Noted. Has note already open to follow her thru hospitalization. Will close to avoid duplicates. ON GLUING MACHINE OPERATOR documented in this encounter Plan of Treatment Not on file documented as of this encounter Visit Diagnoses Not on filedocumented in this encounter Care Teams Animal Cytologist Relationship Specialty Start Date End Date Starr Bran PA [address] [facility] [address] [place] [address] PCP - General Internal Medicine 12/30/18 documented as of this encounter
--- OUTSIDE RECORDS SUMMARY | 2024-07-18 20:38 | XMS_ITS | Encounter Summary ---
Author Organization [facility] Facility Care Team Providers Care Lead Electrical Controls Engineer Name Role Phone Unavailable Primary Care Provider Unavailabl e Encounter Details Date Type Department Care Team (Latest Contact Info) Description 03/18/2014 11:07 AM CDT - 03/18/2014 11:59 PM CDT Hospital Encounter [facility] Joaquim Bynum MD [address] [place] [id number] Other screening mammogram Social History Tobacco Use Types Packs/Day Years Used Date Smoking Tobacco: Never Assessed Comments Unknown Sex and Gender Information Value Date Recorded Sex Assigned at Not on file 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 Gender Identity Female 02/02/2021 7:25 AM CDT Sexual Orientation Straight 02/02/2021 7: 25 AM CDT documented as of this encounter Plan of Treatment Not on file documented as of this encounter Procedures Procedure Name Priority Date/Time Associated Diagnosis Comments DIAGNOSTIC MAMMOGRAM 2D LEFT Routine 03/18/2014 12:00 AM CDT documented in this encounter Results * DIAGNOSTIC MAMMOGRAM 2D LEFT (03/18/2014 12:00 AM CDT) Anatomical Region Laterality Modality Breast Left Mammography 03/18/2014 11:1 8 AM CDT Narrative 03/19/2014 2:14 PM CDT - TO DI SCREENING BILATERAL DIGITAL SCREENING MAMMOGRAM WITH CAD: 03/18/2014 CLINICAL: Routine screening. Patient has no complaints. ?? Comparison is made to exams dated: ??03/12/2013 and 03/11/2012 [facility]. ?? There are scattered fibroglandular elements in both breasts. ?? Current study was also evaluated with a Computer Aided Detection (CAD) system. ?? No significant masses, calcifications, or other findings are seen in either breast. ?? There has been no significant interval change. IMPRESSION: NEGATIVE There is no mammographic evidence of malignancy. A 1 year screening mammogram is recommended. ?? The patient will be contacted by letter. ?? Daina Dan M.D. ? lmo/penrad:03/19/2014 10:12:04 ?? letter sent: Normal Exam ?? Mammogram BI-RADS: 1 Negative Radiologist: DAINA DAN MD ?? Attending: ??JOAQUIM BYNUM Requesting: JOAQUIM BYNUM Requesting Fax: ?? Requesting ID: [id number] Attending Fax: ?? Attending ID: ?? [id number] Completed Time: ?? 03/18/2014 11:18 AM Dictated Time: ?N/A Transcribed Time: 03/19/2014 2:14 PM Signed by: ?DAINA DAN MD ?? on 03/19/2014 2:14 PM Report To 1 ID: Report To 1 Name: , Report To 1 FAX: Report To 2 ID: Report To 2 Name: , Report To 2 FAX: Report To 3 ID: Report To 3 Name: , Report To 3 FAX: NextGen Order #: Procedure Note Provider, MD Saloni - 12/01/2016 - TO ANDINO SCREENING BILATERAL DIGITAL SCREENING MAMMOGRAM WITH CAD: 03/18/2014 CLINICAL: Routine screening. Patient has no complaints. Comparison is made to exams dated: 03/12/2013 and 03/11/2012 [facility]. There are scattered fibroglandular elements in both breasts. Current study was also evaluated with a Computer Aided Detection (CAD) system. No significant masses, calcifications, or other findings are seen in either breast. There has been no significant interval change. IMPRESSION: NEGATIVE There is no mammographic evidence of malignancy. A 1 year screening mammogram is recommended. The patient will be contacted by letter. Daina Dan M.D. o/aleks:03/19/2014 10:12:04 letter sent: Normal Exam Mammogram BI-RADS: 1 Negative Radiologist: DAINA DAN MD Attending: JOAQUIM BYNUM Requesting: JOAQUIM BYNUM Requesting Requesting ID: [id number] Attending Attending ID: [id number] Completed Time: 03/18/2014 11:18 AM Dictated Time: N/A Transcribed Time: 03/19/2014 2:14 PM Signed by: DAINA DAN MD on 03/19/2014 2:14 PM Report To 1 ID: Report To 1 Name: , Report To 1 FAX: Report To 2 ID: Report To 2 Name: , Report To 2 FAX: Report To 3 ID: Report To 3 Name: , Report To 3 FAX: NextGen Order #: us Historical Provider IMDaniel MAMMO PROCEDURES Soco l Result documented in this encounter Visit Diagnoses Diagnosis Other screening mammogram documented in this encounter
--- OUTSIDE RECORDS SUMMARY | 2024-07-18 20:38 | XMS_ITS | Encounter Summary ---
Author Organization [facility] Facility Care Team Providers Care Shallot Cleaner Name Role Phone Unavailable Primary Care Provider Unavailabl e Encounter Details Date Type Department Care Team (Latest Contact Info) Description 03/23/2015 10:12 AM CDT - 03/23/2015 11:59 PM CDT Hospital Encounter [facility] Joaquim Bynum MD [address] [place] [id number] Other screening mammogram Social History Tobacco Use Types Packs/Day Years Used Date Smoking Tobacco: Never Assessed Comments Unknown Sex and Gender Information Value Date Recorded Sex Assigned at Not on file 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 Gender Identity Female 02/02/2021 7:25 AM CDT Sexual Orientation Straight 02/02/2021 7: 25 AM CDT documented as of this encounter Plan of Treatment Not on file documented as of this encounter Procedures Procedure Name Priority Date/Time Associated Diagnosis Comments DIAGNOSTIC MAMMOGRAM 2D LEFT Routine 03/23/2015 12:00 AM CDT documented in this encounter Results * DIAGNOSTIC MAMMOGRAM 2D LEFT (03/23/2015 12:00 AM CDT) Anatomical Region Laterality Modality Breast Left Mammography 03/23/2015 10:1 7 AM CDT Narrative 03/28/2015 9:47 AM CDT - TO ANDINO SCREENING BILATERAL DIGITAL SCREENING MAMMOGRAM WITH CAD: 03/23/2015 CLINICAL: Routine screening. Patient has no complaints. ?? Comparison is made to exams dated: ??03/18/2014, 03/12/2013, and 03/11/2012 [facility]. ?? There are scattered fibroglandular elements in [...] patient will be contacted by letter. ?? Sarah Pittman M.D. ? lrp/penrad:03/26/2015 11:42:44 ?? letter sent: Normal Exam ?? Mammogram BI-RADS: 1 Negative Radiologist: SARAH PITTMAN M.D. ?? Attending: ??JOAQUIM BYNUM Requesting: JOAQUIM BYNUM Requesting Fax: ?? Requesting ID: [id number] Attending Fax: ?? Attending ID: ?? [id number] Completed Time: ?? 03/23/2015 10:17 AM Dictated Time: ?N/A Transcribed Time: 03/28/2015 09:47 AM Signed by: ?SARAH PITTMAN ??Jennifer on 03/28/2015 09:47 AM Report To 1 ID: Report To 1 Name: , Report To 1 FAX: Report To 2 ID: Report To 2 Name: , Report To 2 FAX: Report To 3 ID: Report To 3 Name: , Report To 3 FAX: NextGen Order #: Procedure Note Provider, MD Saloni - 12/01/2016 - TO ANDINO SCREENING BILATERAL DIGITAL SCREENING MAMMOGRAM WITH CAD: 03/23/2015 CLINICAL: Routine screening. Patient has no complaints. Comparison is made to exams dated: 03/18/2014, 03/12/2013, and 03/11/2012 [facility]. There are scattered fibroglandular elements in both breasts. Current study was also evaluated with a Computer Aided Detection (CAD) system. No significant masses, calcifications, or other findings are seen in either breast. There has been no significant interval change. IMPRESSION: NEGATIVE There is no mammographic evidence of malignancy. A 1 year screening mammogram is recommended. The patient will be contacted by letter. Sarah Pittman M.D. [facility]/penrad:03/26/2015 11:42:44 letter sent: Normal Exam Mammogram BI-RADS: 1 Negative Radiologist: SARAH PITTMAN M.D. Attending: JOAQUIM BYNUM Requesting: JOAQUIM BYNUM Requesting Requesting ID: [id number] Attending Attending ID: [id number] Completed Time: 03/23/2015 10:17 AM Dictated Time: N/A Transcribed Time: 03/28/2015 09:47 AM Signed by: SARAH PITTMAN M.D. on 03/28/2015 09:47 AM Report To 1 ID: Report To 1 Name: , Report To 1 FAX: Report To 2 ID: Report To 2 Name: , Report To 2 FAX: Report To 3 ID: Report To 3 Name: , Report To 3 FAX: NextGen Order #: us Historical Provider MD GUPTA MAMMO PROCEDURES Soco l Result documented in this encounter Visit Diagnoses Diagnosis Other screening mammogram documented in this encounter
--- OUTSIDE RECORDS SUMMARY | 2024-07-18 20:38 | XMS_ITS | Encounter Summary ---
Author Organization [facility] Address [address] [place] [address] Care Team Providers Care Nuclear Medicine Supervisor Name Role Phone Starr Bran Primary Care Provider +1- [phone] Encounter Details Date Type Department Care Team (Late st Contact Info) Description 02/23/2019 Orders Only [facility] Family Medicine [address] [place] [address] Starr Bran PA [address] [place] [address] Social History Tobacco Use Types Packs/Day Years Used Date Smoking Tobacco: Never Comments Unknown Sex and Gender Information Value Date Recorded Sex Assigned at Not on file 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 Gender Identity Female 02/02/2021 7:25 AM CDT Sexual Orientation Straight 02/02/2021 7: 25 AM CDT documented as of this encounter Plan of Treatment Not on file documented as of this encounter Procedures Procedure Name Priority Date/Time Associated Diagnosis Comments HM DNA STOOL Routine 02/09/2019 documented in this encounter Results * HM DNA STOOL (02/09/2019) HM COLOGUARD Normal us Historical Provider HEALTH MAINTENANCE Final Result documented in this encounter Visit Diagnoses Not on filedocumented in this encounter Care Teams Nuclear Medicine Supervisor Relationship Specialty Start Date End Date Starr Bran PA [address] [facility] [place] [address] PCP - General Internal Medicine 12/30/18 documented as of this encounter
--- OUTSIDE RECORDS SUMMARY | 2024-07-18 20:38 | XMS_ITS | Encounter Summary ---
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
--- OUTSIDE RECORDS SUMMARY | 2024-07-18 20:38 | XMS_ITS | Encounter Summary ---
Author Organization [facility] Address [address] [place] [address] Care Team Providers Care Extruder Operator Multiple Name Role Phone Unavailable Primary Care Provider Unavailabl e Encounter Details Date Type Department Care Team (Late st Contact Info) Description 10/27/2018 Telephone [facility] Family Medicine 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 Gender Identity Female 02/02/2021 7:25 AM CDT Sexual Orientation Straight 02/02/2021 7: 25 AM CDT documented as of this encounter Ordered Prescriptions Prescription Sig Dispense Quantity Refills Last Filled Start Date End Date lisinopril (PRINIVIL,ZESTRIL) 10 mg tablet Take 1 tablet (10 mg total) by mouth daily 90 tablet 10/27/2018 01/19/2019 lisinopril (PRINIVIL,ZESTRIL) 10 mg tablet Take 1 tablet (10 mg total) by mouth daily 90 tablet 10/27/2018 10/27/2018 documented in this encounter Miscellaneous Notes * Telephone Encounter - Nneka Covington - 10/27/2018 11:02 AM CDT Requested Prescriptions Pending Prescriptions Disp Refills ??? lisinopril (PRINIVIL,ZESTRIL) 10 mg tablet 90 tablet 0 Sig: Take 1 tablet (10 mg total) by mouth daily * Telephone Encounter - Nicole Daily - 10/27/2018 10:12 AM CDT R/F: Lisinopril 10 mg Patient out of meds and has an appointment on 12/18. documented in this encounter Plan of Treatment Not on file documented as of this encounter Visit Diagnoses Not on filedocumented in this encounter Discontinued Medications Medication Sig Discontinue Reason Start Date End Da te lisinopril (PRINIVIL,ZESTRIL) 10 mg tablet Take 10 mg by mouth daily Reorder 10/27/2018 lisinopril (PRINIVIL,ZESTRIL) 10 mg tablet Take 1 tablet (10 mg total) by mouth daily Reorder 10/27/2018 10/27/2018 documented as of this encounter Historical Medications * This list may reflect changes made after this encounter. lisinopril (PRINIVIL,ZESTRIL ) 10 mg tablet Take 10 mg by mouth daily 10/27/2018 added in this encounter
--- OUTSIDE RECORDS SUMMARY | 2024-07-18 20:38 | XMS_ITS | Encounter Summary ---
Author Organization [facility] Facility Care Team Providers Care Continuous Pickling Line Pickler Name Role Phone Unavailable Primary Care Provider Unavailabl e Encounter Details Date Type Department Care Team (Latest Contact Info) Description 03/22/2016 11:03 AM CDT - 03/22/2016 11:59 PM CDT Hospital Encounter [facility] Joaquim Bynum MD [address] [place] [id number] Encounter for screening mammogram for malignant neoplasm of breast Social History Tobacco Use Types Packs/Day Years Used Date Smoking Tobacco: Never Assessed Comments Unknown Sex and Gender Information Value Date Recorded Sex Assigned at Not on file 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 ??Patient is self-referred. - MAMVAN DI SCREENING BILATERAL DIGITAL SCREENING MAMMOGRAM WITH CAD: 03/22/2016 CLINICAL: Patient presents for bilateral mammogram without complaints. ?? Comparison is made to exams dated: ??03/23/2015, 03/18/2014, 03/12/2013, and 03/11/2012 [facility]. ?? There are scattered fibroglandular elements [...] patient will be contacted by letter. ?? Lisa Ward M.D. ? [facility]:03/26/2016 16:05:09 ?? letter sent: Normal Exam ?? Mammogram BI-RADS: 1 Negative Radiologist: LISA WARD MD ?? Attending: ??JOAQUIM BYNUM Requesting: JOAQUIM BYNUM Requesting Fax: ?? Requesting ID: [id number] Attending Fax: ?? Attending ID: ?? [id number] Completed Time: ?? 03/22/2016 08:41 AM Dictated Time: ?N/A Transcribed Time: 03/27/2016 08:54 AM Signed by: ?LISA WARD MD ?? on 03/27/2016 08:54 AM Report To 1 ID: Report To 1 Name: , Report To 1 FAX: Report To 2 ID: Report To 2 Name: , Report To 2 FAX: Report To 3 ID: Report To 3 Name: , Report To 3 FAX: NextGen Order #: Procedure Note Provider, MD Saloni - 12/01/2016 Courtesy copy provided at patient's request. Patient is self-referred. - TO [place] SCREENING BILATERAL DIGITAL SCREENING MAMMOGRAM WITH CAD: 03/22/2016 CLINICAL: Patient presents for bilateral mammogram without complaints. Comparison is made to exams dated: 03/23/2015, 03/18/2014, 03/12/2013, and 03/11/2012 [facility]. There are scattered fibroglandular elements in both breasts. Current study was also evaluated with a Computer Aided Detection (CAD) system. No significant masses, calcifications, or other findings are seen in either breast. There has been no significant interval change. IMPRESSION: NEGATIVE There is no mammographic evidence of malignancy. A 1 year screening mammogram is recommended. The patient will be contacted by letter. Lisa Ward M.D. [facility]/[place]:03/26/2016 16:05:09 letter sent: Normal Exam Mammogram BI-RADS: 1 Negative Radiologist: LISA WARD MD Attending: JOAQUIM BYNUM Requesting: JOAQUIM BYNUM Requesting Requesting ID: [id number] Attending Attending ID: [id number] Completed Time: 03/22/2016 08:41 AM Dictated Time: N/A Transcribed Time: 03/27/2016 08:54 AM Signed by: LISA WARD MD on 03/27/2016 08:54 AM Report To 1 ID: Report To 1 Name: , Report To 1 FAX: Report To 2 ID: Report To 2 Name: , Report To 2 FAX: Report To 3 ID: Report To 3 Name: , Report To 3 FAX: NextGen Order #: us Historical Provider MD GUPTA MAMMO PROCEDURES Soc[place] Result documented in this encounter Visit Diagnoses Diagnosis Encounter for screening mammogram for malignant neoplasm of breast documented in this encounter
--- OUTSIDE RECORDS SUMMARY | 2024-07-18 20:38 | XMS_ITS | Encounter Summary ---
Author Organization [facility] Address [address] [place] [id number] Care Team Providers Care Cyber Incident Responder Name Role Phone Starr Bran Primary Care Provider [phone]- [phone] Reason for Visit * Reason Comments Shortness of Breath Nasal Congestion Encounter Details Date Type Department Care Team (Late st Contact Info) Description 09/20/2020 10:15 AM BOILERMAKER [employer]SEMBL[employer] ERECTION Telemedicine [facility] Family Medicine [address] [place] [address] Starr Bran PA [address] [place] [address] SOB (shortness of breath) on exertion (Primary Dx); Other fatigue; Essential hypertension; Hyperglycemia; Lipid screening Social History Tobacco Use Types Packs/Day Years [...] on file Legal Sex Female 10:31 AM BOILERMAKER ASSEMBLY [employer] ERECTION Gender Identity Female 02/02/2021 7:25 AM CDT Sexual Orientation Straight 02/02/2021 7: 25 AM CDT documented as of this encounter Progress Notes * Starr Bran PA - 09/20/2020 10:15 AM CST Images from the original note were not included. Subjective/Objective Patient ID: Viktoriya Bell is a 55 y.o. female. Chief Complaint Shortness of Breath and Nasal Congestion HPI This was a telemedicine visit with the patient which took place via real-time video connection with[employer] or [employer]. During the visit, I was located in my [place], [place] office and the patientwas located at home in the [facility]. The patient visit started at 10:50am and ended at 11:08a. My total encounter time, spent on the day of service was 23 minutes which was spent in the activities documented in the note. This includes time spent prior to the visit and after the visit in direct care of the patient. This time does not include time spent in any separately reportable services. The patient has been informed that the visit may not be secure and acknowledged the information. I have explained the option of participating in a telephone or video visit during the [facility] public health emergency to the patient. After being given an opportunity to ask questions about and discuss this type of visit, the patient verbally consented to proceeding with the telephone/video visit.The patient understands that this service replaces an office visit and they may be billed and/or responsible for any applicable copayments. Still SOB - 6 month history Patient is in a split level house and just walking up the stairs she will get winded and feel SOB with exertion. No associated CP but will get discomfort/tightness between shoulder blades. Feels like her heart beat is in her head. No palpitations. Not a big caffeine. NO cough. Minimal congestion/rhinorrhea. Tried Flonase, but no change. Not on an antihistamine. Father -- had bypass surgery in his late 60s. bp at home runs. 130 systolic Review of Systems Constitutional: Negative for fever. Respiratory: Negative for cough and chest tightness. Cardiovascular: Negative for chest pain. Gastrointestinal: Negative for abdominal pain. There were no vitals filed for this visit. Physical Exam Vitals and nursing note reviewed. Constitutional: Appearance: Normal appearance. HENT: Head: Normocephalic and atraumatic. Eyes: Comments: Pupils are equal Pulmonary: Effort: Pulmonary effort is normal. Skin: General: Skin is dry. Neurological: Mental Status: She is alert. Psychiatric: Mood and Affect: Mood normal. Assessment/Plan Diagnoses and all orders for this visit: SOB (shortness of breath) on exertion (R06.02) (Primary) Assessment & Plan: Persistent sxs with activity. If she has CP, increased SOB, HR over 120 sustained or syncope she is to go to the ER. Check labs Limit caffeine Refer to cardio for further evaluation. Unable to do EKG as video visit. Orders: - Ambulatory referral to Cardiology; Future Other fatigue (R53.83) Assessment & Plan: Probably multifactorial. Check labs and followup to re-evaluate Orders: - CBC with auto differential; Future - TSH; Future - Vitamin D 25 hydroxy; Future - Magnesium; Future Essential hypertension (I10) Assessment & Plan: Stable by history of home readings. Continue the lisinopril Orders: - Comprehensive metabolic panel; Future - Magnesium; Future Hyperglycemia (R73.9) Assessment & Plan: Pre-diabetes/hyperglycemia is a precursor to Dm. Stressed importance of working on diet (decrease your simple sugars and one carbohydrate with each meal) and increase you exercise to achieve weight loss and this will help prevent you from progressing to diabetes. Orders: - Hemoglobin A1c; Future Lipid screening (Z13.220) Assessment & Plan: Check labs Orders: - Lipid panel; Future Starr Bran PA-C [employer]MAKER [employer]SEMBLY [employer] ERECTION documented in this encounter Miscellaneous Notes * Assessment & Plan Note - Starr Bran PA - 09/25/2020 9:53 AM BOILERMAKER ASSEMBLY [employer]RECTION Associated Problem(s): Other fatigue Probably multifactorial. Check labs and followup to re-evaluate [employer]SEM[employer] * Assessment & Plan Note - Starr Bran PA - 09/25/2020 9:53 AM BOILERMAKER ASSEMBLY [employer] ERECTION Associated Problem(s): Lipid screening (Resolved 02/14/2021) Check labs [employer]SEM[employer]RECTION * Assessment & Plan Note - Starr Bran PA - 09/25/2020 9:53 AM BOILERMAKER ASSEMBLY [employer] ERECTION Associated Problem(s): Hyperglycemia Pre-diabetes/hyperglycemia is a precursor to Dm. Stressed importance of working on diet (decrease your simple sugars and one carbohydrate with each meal) and increase you exercise to achieve weight loss and this will help prevent you from progressing to diabetes. ERMAKER ASSEMBLY [employer]RECTION * Assessment & Plan Note - Starr Bran PA - 09/25/2020 9:52 AM BOILERMAKER ASSEMBLY [employer] ERECTION Associated Problem(s): Essential hypertension Stable by history of home readings. Continue the lisinopril ERMAKER ASSEMBLY [employer] ERECTION * Assessment & Plan Note - Starr Bran PA - 09/25/2020 9:50 AM BOILERMAKER ASSEMBLY [employer] ERECTION Associated Problem(s): PHAN (dyspnea on exertion) Persistent sxs with activity. If she has CP, increased SOB, HR over 120 sustained or syncope she is to go to the ER. Check labs Limit caffeine Refer to cardio for further evaluation. Unable to do EKG as video visit. [employer] documented in this encounter Plan of Treatment Not on file documented as of this encounter Procedures Procedure Name Priority Date/Time Associated Diagnosis Comments LIPID PANEL Routine 09/27/2020 8:46 AM BOILERMAKER [employer]SEMBL[employer]RECTION Lipid screening CBC WITH AUTO DIFFERENTIAL Routine 09/27/2020 8:43 AM BOILERMAKER [employer]SEMBLY [employer] ERECTION Other fatigue VITAMIN D 25 HYDROXY Routine 09/27/2020 8:43 AM BOILERMAKER [employer]SEMBLY [employer]RECTION Other fatigue TSH Routine 09/27/2020 8:43 AM BOILERMAKER [employer]SEMBL[employer] ERECTION Other fatigue MAGNESIUM Routine 09/27/2020 8:43 AM BOILERMAKER [employer]BL[employer] ERECTION Other fatigue Essential hypertension HEMOGLOBIN A1C Routine 09/27/2020 8:43 AM [employer]ILERMAKER [employer]BL[employer]RECTION Hyperglycemia COMPREHENSIVE METABOLIC PANEL Routine 09/27/2020 8:43 AM BOILERMAKER [employer]RECTION Essential hypertension documented in this encounter Results * (ABNORMAL) Lipid panel (09/27/2020 8:46 AM BOILERMAKER [employer]SEMBL[employer]RECTION) Cholesterol 108 100 - 199 mg/dL [facility] - 01 Triglycerides 66 0 - 149 mg/dL [facility] - 01 HDL Cholesterol 39(L) >39 mg/dL [facility] - 01 VLDL 14 5 - 40 mg/dL [facility] - 01 LDL, calculated 55 0 - 99 mg/dL [facility] - 01 Blood specimen (specimen) 09/27/2020 8:46 AM [employer]ILERMAKER [employer]BL[employer]RECTION 09/27/2020 Narrative [facility] - 09/28/2020 7:36 AM [employer]ILERMAKER [employer]SEMBLY [employer]RECTION Performed at: ??01 - [facility] [address] ??[id number] Mine Utility Operator: Parveen Lofton PhD, Phone: ??[phone] Starr SALVADOR LAB BLOOD ORDERABLES Final Result [facility] - 01 * Magnesium (09/27/2020 8:43 AM BOILERMAKER [employer]SEMBL[employer]RECTION) Magnesium 2.0 1.6 - 2.3 mg/dL [facility] - 01 Blood specimen (specimen) 09/27/2020 8:43 AM BOILERMAKER [employer]SEMBL[employer] ERECTION 09/27/2020 Narrative [facility] - 09/28/2020 4:10 PM [employer]MAK[employer]RECTION Performed at: ??01 - [facility] [address] ??[id number] Mine Utility Operator: Parveen Lofton PhD, Phone: ??[phone] Starr SALVADOR LAB BLOOD ORDERABLES Final Result Performing Organization Address [facility] Co de Phone Number [facility] * Vitamin D 25 hydroxy (09/27/2020 8:43 AM BOILERMAKER [employer]BL[employer]RECTION) Vitamin D, 25-Hydroxy 72.7 30.0 - 100.0 ng/mL [facility] - Comment: Vitamin D deficiency has been defined by the [place] of Medicine and an Endocrine Society practice guideline as a level of serum 25-OH vitamin D less than 20 ng/mL (1,2). The Endocrine Society went on to further define vitamin D insufficiency as a level between 21 and 29 ng/mL (2). 1. IOM ([place] of Medicine). 2010. Dietary reference ?? intakes for calcium and D. [place]: The ?? National Creactives Press. 2. Jonathan MF, Eli NC, Santiago JOHNSON, et al. ?? Evaluation, treatment, and prevention of vitamin D ?? deficiency: an Endocrine Society clinical practice ?? guideline. JCEM. 2010; 96(7):1911-30. Blood specimen (specimen) 09/27/2020 8:43 AM BOILERMAKER ASSEMBLY [employer] ERECTION 09/27/2020 Narrative [facility] - 09/28/2020 4:10 PM BOILERMAKER [employer]SEMBL[employer]RECTION Performed at: ??01 - [facility] [address] ??[id number] Mine Utility Operator: Parveen Lofton PhD, Phone: ??[phone] Starr SALVADOR LAB BLOOD ORDERABLES Final Result Performing Organization Address [facility]/ZIP Co de Phone Number [facility] - * TSH (09/27/2020 8:43 AM BOILERMAKER ASSEMBLY [employer] ERECTION) TSH 2.220 0.450 - 4.500 uIU/mL [facility] - Blood specimen (specimen) 09/27/2020 8:43 AM BOILERMAKER ASSEMBLY [employer] ERECTION 09/27/2020 Narrative [facility] - 09/28/2020 4:10 PM BOILERMAKER ASSEMBLY [employer] ERECTION Performed at: ??01 - [facility] ??[id number] Mine Utility Operator: Parveen Lofton PhD, Phone: ??[phone] Starr SALVADOR LAB BLOOD ORDERABLES Final Result Performing Organization Address [facility] Co de Phone Number [facility] - * Hemoglobin A1c (09/27/2020 8:43 AM BOILERMAKER [employer]SEMBL[employer] ERECTION) Hgb A1C 5.3 4.8 - 5.6 % [facility] - 01 Comment: ? Prediabetes: 5.7 - 6.4 ? Diabetes: >6.4 ? Glycemic control for adults with diabetes: <7.0 Blood specimen (specimen) 09/27/2020 8:43 AM BOILERMAKER ASSEMBLY AND ERECTION 09/27/2020 Narrative [facility] - 09/28/2020 4:10 PM BOILERMAKER ASSEMBLY AND ERECTION Performed at: ??01 - [facility] ??[id number] Mine Utility Operator: Parveen Lofton PhD, Phone: ??[phone] Starr SALVADOR LAB BLOOD ORDERABLES Final Result Performing Organization Address [facility] Co de Phone Number [facility] - * (ABNORMAL) Comprehensive metabolic panel (09/27/2020 8:43 AM BOILERMAKER ASSEMBLY [employer] ERECTION) Glucose 103(H) 65 - 99 mg/dL [facility] - 01 BUN 10 6 - 24 mg/dL [facility] - 01 Creatinine, Serum 0.70 0.57 - 1.00 mg/dL [facility] - 01 eGFR If NonAfricn Am 97 >59 mL/min/1.7 3 [facility] - 01 eGFR If Africn Am 112 >59 mL/min/1.7 3 [facility] - 01 BUN/creat ratio 14 9 - 23 [facility] - 01 Sodium 139 134 - 144 mmol/L [facility] - 01 Potassium, sr 3.9 3.5 - 5.2 mmol/L [facility] - 01 Chloride 108(H) 96 - 106 mmol/L [facility] - 01 CO2 19(L) 20 - 29 mmol/L [facility] - 01 Calcium 8.8 8.7 - 10.2 mg/dL [facility] - 01 Protein, sr 6.9 6.0 - 8.5 g/dL [facility] - 01 Albumin 4.1 3.8 - 4.9 g/dL [facility] - 01 Globulin, Total 2.8 1.5 - 4.5 g/dL [facility] - 01 A/G Ratio 1.5 1.2 - 2.2 [facility] - 01 Bilirubin, Total 0.4 0.0 - 1.2 mg/dL [facility] - 01 Alk phos 75 39 - 117 IU/L [facility] - 01 AST 8 0 - 40 IU/L [facility] - 01 ALT 10 0 - 32 IU/L [facility] - 01 Blood specimen (specimen) 09/27/2020 8:43 AM BOILERMAKER ASSEMBLY AND ERECTION 09/27/2020 Narrative [facility] - 09/28/2020 4:10 PM BOILERMAKER [employer]SEMBLY [employer] ERECTION Performed at: ??01 - [facility] ??[id number] Mine Utility Operator: Parveen Lofton PhD, Phone: ??[phone] Starr SALVADOR LAB BLOOD ORDERABLES Final Result [facility] * (ABNORMAL) CBC with auto differential (09/27/2020 8:43 AM BOILERMAKER [employer]SEMBLY [employer] ERECTION) [facility] WBC 5.7 3.4 - 10.8 x10E3/uL [facility] - 01 Comment:Verified by repeat analysis RBC 2.79(L) 3.77 - 5.28 x10E6/uL [facility] - 01 Hgb 4.6(<) 11.1 - 15.9 g/dL [facility] - 01 Hct 18.6(L) 34.0 - 46.6 % [facility] - 01 MCV 67(L) 79 - 97 fL [facility] - 01 MCH 16.5(L) 26.6 - 33.0 pg [facility] - 01 MCHC 24.7(LL) 31.5 - 35.7 g/dL [facility] - 01 Rdw 20.5(H) 11.7 - 15.4 % [facility] - 01 Platelets 318 150 - 450 x10E3/uL [facility] - 01 Neutrophils pct 69 Not Estab. % [facility] - 01 Lymphs pct 21 Not Estab. % [facility] - 01 Monocytes pct 7 Not Estab. % [facility] - 01 Eosinophils pct 1 Not Estab. % [facility] - 01 Basophil pct 1 Not Estab. % [facility] - 01 Neutrophil abs 4.0 1.4 - 7.0 x10E3/uL [facility] - 01 Lymphs (Absolute) 1.2 0.7 - 3.1 x10E3/uL [facility] - 01 Monocyte abs 0.4 0.1 - 0.9 x10E3/uL [facility] - 01 Eosinophils, abs 0.1 0.0 - 0.4 x10E3/uL [facility] - 01 Basophils, abs 0.0 0.0 - 0.2 x10E3/uL [facility] - 01 Immature Granulocytes 1 Not Estab. % [facility] - 01 Immature Grans (Abs) 0.0 0.0 - 0.1 x10E3/uL [facility] - 01 Blood specimen (specimen) 09/27/2020 8:43 AM [employer]MAK[employer]BL[employer]RECTION 09/27/2020 Narrative [facility] - 09/28/2020 4:10 PM [employer]MAK[employer]RECTION Performed at: ??01 - [facility] [address] ??[id number] Mine Utility Operator: Parveen Lofton PhD, Phone: ??[phone] Specimen Comment: Called/faxed to JOHN Davis on 09/28/2020 at 07:42 ET for Specimen Comment: test(s) Hemoglobin us Starr SALVADOR LAB BLOOD ORDERABLES Final Result [facility] 01 documented in this encounter Visit Diagnoses Diagnosis SOB (shortness of breath) on exertion- Primary Shortness of breath Other fatigue Essential hypertension Unspecified essential hypertension Hyperglycemia Other abnormal glucose Lipid screening Screening for lipoid disorders documented in this encounter Discontinued Medications Medication Sig Discontinue Reason Start Date End Da te fluticasone propionate (FLONASE) 50 mcg/actuation nasal spray Administer 1 spray into each nostril daily Therapy completed 06/06/2020 09/20/2020 documented as of this encounter Care Teams Cyber Incident Responder Relationship Specialty Start Date End Date Starr Bran PA [address] [address] PCP - General Internal Medicine 12/30/18 documented as of this encounter
--- OUTSIDE RECORDS SUMMARY | 2024-07-18 20:38 | XMS_ITS | Encounter Summary ---
Author Organization [facility] Address [address] [place] [address] Care Team Providers Care Will Call Clerk Name Role Phone Starr Bran Primary Care Provider [phone]- [phone] Bruce Olea MD Unavailable [phone] Encounter Details Date Type Department Care Team (Late st Contact Info) Description 04/20/2020 Orders Only [facility] Health Information Management [address] [place] [address] Scanning, Provider Social History Tobacco Use Types Packs/Day Years Used Date Smoking Tobacco: Never AUDIT-C Answer Date Recorded Q1: [...] file Legal 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 Gender Identity Female 02/02/2021 7:25 AM CDT Sexual Orientation Straight 02/02/2021 7: 25 AM CDT documented as of this encounter Plan of Treatment Not on file documented as of this encounter Procedures Procedure Name Priority Date/Time Associated Diagnosis Comments SCAN - RADIOLOGY/IMAGING 04/20/2020 documented in this encounter Results * SCAN - RADIOLOGY/IMAGING (04/20/2020) Anatomical Region Laterality Modality Other us Provider Scanning Final Result documented in this encounter Visit Diagnoses Not on filedocumented in this encounter Care Teams Will Call Clerk Relationship Specialty Start Date End Date Starr Bran PA [address] [place] [address] PCP - General Internal Medicine 12/30/18 Bruce Olea MD [address] [place] [address] Medical Oncologist/Bryologist Medical Oncology 02/17/21 09/25/21 documented as of this encounter
--- OUTSIDE RECORDS SUMMARY | 2024-07-18 20:38 | XMS_ITS | Encounter Summary ---
Author Organization [facility] Healthcare Address [address] [place] [address] Care Team Providers Care Doffer Name Role Phone Starr Bran Primary Care Provider +1- [phone] Reason for Referral * Diagnostic Imaging (Routine) - Closed Specialty Diagnoses / Procedures Referred By Hung gao Referred To Contact Diagnoses Encounter for screening mammogram for malignant neoplasm of breast Procedures Screening Mammogram Bilateral W Joaquim Lomeli MD Phone: tel: fax: [address] [place] [address] Referral ID Status Reason Start Date Expiration Date Visits Re quested Visits Authorized [id number] Closed 02/12/2019 08/23/2020 1 1 Reason for Visit * Diagnostic Imaging (Routine) - Closed Specialty Diagnoses / Procedures Referred By Hung gao Referred To Contact Diagnoses Encounter for screening mammogram for malignant neoplasm of breast Procedures Screening Mammogram Bilateral W Joaquim Lomeli MD Phone: tel: fax: [address] [place] [address] Referral ID Status Reason Start Date Expiration Date Visits Re quested Visits Authorized [id number] Closed 02/12/2019 08/23/2020 1 1 Encounter Details Date Type Department Care Team (Latest Contact Info) Description 03/27/2019 9:20 AM CDT - 03/27/2019 11:59 PM CDT Hospital Encounter [facility] Mamm[place], [place] [phone] Joaquim Bynum MD [address] [place] [address] Encounter for screening mammogram for malignant neoplasm of breast Discharge Disposition: Discharge to home or self care Social History Tobacco Use Types Packs/Day Years Used Date Smoking Tobacco: Never PHQ-2 Answer Date Recorded PHQ-2 Score 0 03/18/2019 Comments Unknown Sex and Gender Information Value Date Recorded Sex Assigned at Not on file Legal Sex Female 10:31 AM BEAD MAKER Gender Identity Female 02/02/2021 7:25 AM CDT Sexual Orientation Straight 02/02/2021 7: 25 AM CDT documented as of this encounter Medications at Time of Discharge multivitamin tablet daily lisinopril (PRINIVIL,ZESTRIL ) 10 mg tablet Take 1 tablet (10 mg total) by mouth daily 90 tablet 3 01/19/2019 02/24/2020 documented as of this encounter Discharge Disposition Disposition Code Departure Means Destination Discharge to home or self care documented in this encounter Plan of Treatment Not on file documented as of this encounter Procedures Procedure Name Priority Date/Time Associated Diagnosis Comments SCREENING MAMMOGRAM BILATERAL W STUART Schedule Routine, Read Routine (OP Routine) 03/27/2019 9:32 AM CDT Encounter for screening mammogram for malignant neoplasm of breast documented in this encounter Results * Screening Mammogram Bilateral W Stuart (03/27/2019 9:32 AM CDT) Anatomical Region Laterality Modality Breast Bilateral Mammography Narrative 04/01/2019 9:43 AM CDT Screening Mammogram Bilateral W Stuart: 03/27/19 Clinical: Encounter for screening mammogram for malignant neoplasm of breast. ?? Prior Study Comparisons: Comparison was made to the prior available relevant studies at the time of interpretation. Findings: Bilateral No significant masses, malignant type calcifications, skin thickening, nipple retraction, or significant lymphadenopathy is noted in either breast. ??The CAD review showed no significant findings. The breasts have scattered areas of fibroglandular density. The patient will be notified of results by letter. Impression: BI-RADS?? ATLAS category (overall): 1 Negative ?? There is no mammographic evidence of malignancy. Routine Screening Mammogram in 1 Yr is recommended for bilateral Overall Assessment: 1 - Negative us Joaquim Bynum MD IMG MAMMO PROCEDURES Final R esult documented in this encounter Visit Diagnoses Diagnosis Encounter for screening mammogram for malignant neoplasm of breast documented in this encounter Care Teams Doffer Relationship Specialty Start Date End Date Starr Bran PA [address] [place] [address] PCP - General Internal Medicine 12/30/18 documented as of this encounter
--- OUTSIDE RECORDS SUMMARY | 2024-07-18 20:38 | XMS_ITS | Encounter Summary ---
Author Organization [facility] Healthcare Address [address] [place] [address] Care Team Providers Care Manager Port Name Role Phone Unavailable Primary Care Provider Unavailabl e Reason for Referral * Diagnostic Imaging (Routine) - Closed Specialty Diagnoses / Procedures Referred By Hung gao Referred To Contact Diagnoses Screening for breast cancer Procedures Screening Mammogram Bilateral W Joaquim Lomeli MD Phone: tel: fax: [id number] [place] [address] Referral ID Status Reason Start Date Expiration Date Visits Re quested Visits Authorized [id number] Closed 03/07/2018 09/16/2019 1 1 Reason for Visit * Diagnostic Imaging (Routine) - Closed Specialty Diagnoses / Procedures Referred By Hung gao Referred To Contact Diagnoses Screening for breast cancer Procedures Screening Mammogram Bilateral W Joaquim Lomeli MD Phone: tel: fax: [address] [place] [address] Referral ID Status Reason Start Date Expiration Date Visits Re quested Visits Authorized [id number] Closed 03/07/2018 09/16/2019 1 1 Encounter Details Date Type Department Care Team (Latest Contact Info) Description 03/12/2018 1:02 PM CDT - 03/12/2018 11:59 PM CDT Hospital Encounter [facility] Mammography [place], [place] [phone] Joaquim Bynum MD [address] [place] [address] Screening for breast cancer Discharge Disposition: Discharge to home or self care Social History Tobacco Use Types Packs/Day Years Used Date Smoking Tobacco: Never Assessed Comments Unknown Sex and Gender Information Value Date Recorded Sex Assigned at Not on file Legal 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 Gender Identity Female 02/02/2021 7:25 AM CDT Sexual Orientation Straight 02/02/2021 7: 25 AM CDT documented as of this encounter Discharge Disposition Disposition Code Departure Means Destination Discharge to home or self care documented in this encounter Plan of Treatment Not on file documented as of this encounter Procedures Procedure Name Priority Date/Time Associated Diagnosis Comments SCREENING MAMMOGRAM BILATERAL W STUART Schedule Routine, Read Routine (OP Routine) 03/12/2018 1:15 PM CDT Screening for breast cancer documented in this encounter Results * Screening Mammogram Bilateral W Stuart (03/12/2018 1:15 PM CDT) Anatomical Region Laterality Modality Breast Bilateral Mammography Narrative 03/13/2018 4:32 PM CDT Screening Mammogram Bilateral W Stuart: 03/12/18 Clinical: Screening for breast cancer. ?? Prior Study Comparisons: Compared to: 03/28/2017 MAMMOGRAPHY, UNILATERAL, 03/22/2016 DIAGNOSTIC MAMMOGRAM 2D LEFT, 03/23/2015 DIAGNOSTIC MAMMOGRAM 2D LEFT, 03/18/2014 DIAGNOSTIC MAMMOGRAM 2D LEFT, and 03/12/2013 DIAGNOSTIC MAMMOGRAM 2D LEFT Findings: Bilateral No significant masses, malignant type [...] documented in this encounter Visit Diagnoses Diagnosis Screening for breast cancer Breast screening, unspecified documented in this encounter
--- OUTSIDE RECORDS SUMMARY | 2024-07-18 20:38 | XMS_ITS | Encounter Summary ---
Author Organization [facility] Address [address] [place] [address] Care Team Providers Care Fur Tailor Name Role Phone Starr Bran Primary Care Provider +1- [phone] Reason for Visit * Reason Onset Date Comments Hosptial Admission 09/28/2020 Encounter Details Date Type Department Care Team (Late st Contact Info) Description 09/28/2020 Telephone [facility] Family Medicine [address] [place] [address] Starr Bran PA [address] [place] [address] Hosptial Admission Social History Tobacco Use Types Packs/Day Years [...] file Legal Sex Female 10:31 AM CLINICAL LABORATORY DIRECTOR Gender Identity Female 02/02/2021 7:25 AM CDT Sexual Orientation Straight 02/02/2021 7: 25 AM CDT documented as of this encounter Miscellaneous Notes * Telephone Encounter - Starr Bran PA - 10/03/2020 6:29 PM CLINICAL LABORATORY DIRECTOR Patient was discharged 09/30/2020 She has TCM visit on 10/04 which is Day 2 after discharge so not TCM call is required. ICAL LABORATORY DIRECTOR * Telephone Encounter - Starr Bran PA - 09/29/2020 1:11 PM CLINICAL LABORATORY DIRECTOR Called pt and left message on machine as staff said she called worried and tearful. Left message reassuing her the hospitalist will take good care of her and I will continue to follow. ICAL LABORATORY DIRECTOR * Telephone Encounter - Starr Bran PA - 09/29/2020 1:10 PM CLINICAL LABORATORY DIRECTOR Staff entered another message stating she called the office upset and worried about what was going on in the hospital. I tried calling her and left a message reassuing her the hospitalist will take good care of her andwill get to the bottom of this anemia. Will continue to follow. ICAL LABORATORY DIRECTOR * Telephone Encounter - Starr Bran PA - 09/28/2020 3:40 PM CLINICAL LABORATORY DIRECTOR Patient has had increased SOB/video visit last week. Labs ordered/completed yesterday. [facility] called Urgent labs this AM to electronics research engineer provider. Hgb was 4.6 She was sent to [facility] ER for immediate evaluation. She was admitted, 3 units ordered and pending colonoscopy. Dr. Schuler was consulted. Will follow admission. ICAL LABORATORY DIRECTOR documented in this encounter Plan of Treatment Not on file documented as of this encounter Visit Diagnoses Not on filedocumented in this encounter Care Teams Fur Tailor Relationship Specialty Start Date End Date Starr Bran PA [address] [place] [address] PCP - General Internal Medicine 12/30/18 documented as of this encounter
--- OUTSIDE RECORDS SUMMARY | 2024-07-18 20:38 | XMS_ITS | Encounter Summary ---
Author Organization [facility] Care Team Providers Care Bounty Trapper Name Role Phone Unavailable Primary Care Provider Unavailabl e Encounter Details Date Type Department Care Team (Latest Contact Info) Description 03/12/2013 9:10 AM CDT - 03/12/2013 11:59 PM CDT Hospital Encounter [facility] Joaquim Bynum MD [address] [place] [phone] Other screening mammogram Social History Tobacco Use Types Packs/Day Years Used Date Smoking Tobacco: Never Assessed Comments Unknown Sex and Gender Information Value Date Recorded Sex Assigned at Not on file Legal Sex Female 10:31 AM AREA MECHANIC Gender Identity Female 02/02/2021 7:25 AM CDT Sexual Orientation Straight 02/02/2021 7: 25 AM CDT documented as of this encounter Plan of Treatment Not on file documented as of this encounter Procedures Procedure Name Priority Date/Time Associated Diagnosis Comments DIAGNOSTIC MAMMOGRAM 2D LEFT Routine 03/12/2013 12:00 AM CDT documented in this encounter Results * DIAGNOSTIC MAMMOGRAM 2D LEFT (03/12/2013 12:00 AM CDT) Anatomical Region Laterality Modality Breast Left Mammography 03/12/2013 9:25 AM CDT Narrative 03/18/2013 8:37 AM CDT - TO DI SCREENING BILATERAL DIGITAL SCREENING MAMMOGRAM WITH CAD: 03/12/2013 CLINICAL: Routine screening. Patient has no complaints. ?? Comparison is made to exam dated: ??03/11/2012 [facility]. ?? There are scattered fibroglandular elements in both breasts. ?? Current study was also evaluated with a Computer Aided Detection (CAD) system. ?? No significant masses, calcifications, or other findings are seen in either breast. ?? There has been no significant interval change. IMPRESSION: NEGATIVE There is no mammographic evidence of malignancy. ?? A 1 year screening mammogram is recommended. The patient will be contacted by letter. ?? Terra Becerril M.D. ? field crop farmworker/penrad:03/17/2013 07:26:43 ?? letter sent: Normal Exam ?? Mammogram BI-RADS: 1 Negative Radiologist: TERRA BECERRIL ?? Attending: ??JOAQUIM BYNUM Requesting: JOAQUIM BYNUM Requesting Fax: ?? Completed Time: ?? 03/12/2013 09:25 AM Dictated Time: ?N/A Transcribed Time: 03/18/2013 08:37 AM Signed by: ?TERRA BECERRIL ?? on 03/18/2013 08:37 AM Procedure Note Provider, MD Saloni - 12/01/2016 - TO ANDINO SCREENING BILATERAL DIGITAL SCREENING MAMMOGRAM WITH CAD: 03/12/2013 CLINICAL: Routine screening. Patient has no complaints. Comparison is made to exam dated: 03/11/2012 [facility]. There are scattered fibroglandular elements in both breasts. Current study was also evaluated with a Computer Aided Detection (CAD) system. No significant masses, calcifications, or other findings are seen in either breast. There has been no significant interval change. IMPRESSION: NEGATIVE There is no mammographic evidence of malignancy. A 1 year screening mammogram is recommended. The patient will be contacted by letter. Terra Becerril M.D. field crop farmworker/penrad:03/17/2013 07:26:43 letter sent: Normal Exam Mammogram BI-RADS: 1 Negative Radiologist: TERRA BECERRIL Attending: JOAQUIM BYNUM Requesting: JOAQUIM BYNUM Requesting Completed Time: 03/12/2013 09:25 AM Dictated Time: N/A Transcribed Time: 03/18/2013 08:37 AM Signed by: TERRA BECERRIL on 03/18/2013 08:37 AM Historical Provider MD [facility]PT[facility] MAMMO PROCEDURES Soco l Result documented in this encounter Visit Diagnoses Diagnosis Other screening mammogram documented in this encounter
--- OUTSIDE RECORDS SUMMARY | 2024-07-18 20:38 | XMS_ITS | Encounter Summary ---
Author Organization [facility] Healthcare Address [address] [place] [address] Care Team Providers Care Mucking Machine Operator Name Role Phone Starr Bran Primary Care Provider +1- [phone] Encounter Details Date Type Department Care Team (Late st Contact Info) Description 02/08/2020 4:15 PM CDT Hospital Encounter [facility] Starr Bran PA [address] [place] [address] Social History Tobacco Use Types Packs/Day Years Used Date Smoking Tobacco: Never PHQ-2 Answer Date Recorded PHQ-2 Score 0 03/18/2019 Comments Unknown Sex and Gender Information Value Date Recorded Sex Assigned at Not on file Legal Sex Female 10:31 AM AUTOMATIC PRINT DEVELOPER Gender Identity Female 02/02/2021 7:25 AM CDT Sexual Orientation Straight 02/02/2021 7: 25 AM CDT documented as of this encounter Medications at Time of Discharge multivitamin tablet daily lisinopril (PRINIVIL,ZESTRIL ) 10 mg tablet Take 1 tablet (10 mg total) by mouth daily 90 tablet 3 01/19/2019 02/24/2020 documented as of this encounter Plan of Treatment Not on file documented as of this encounter Procedures Procedure Name Priority Date/Time Associated Diagnosis Comments SCAN - LABS 02/10/2020 12:00 AM CDT COVID-19 CORONAVIRUS RNA Routine 02/08/2020 4:41 PM CDT documented in this encounter Results * SCAN - LABS (02/10/2020 12:00 AM CDT) Narrative 02/10/2020 12:00 AM CDT Ordered by an unspecified provider. us Historical Provider MD Final Res ult * COVID-19 Coronavirus RNA (02/08/2020 4:41 PM CDT) COVID-19 Coronavirus RNA NOT DETECTED [facility] Comment: A negative result does not rule out the possibility of COVID-19 and should not be used as the sole basis for patient management decisions. Coronavirus (COVID-19) Interp SEE COMMENT [facility] Comment: Please see scanned report for additional information. Coronavirus (COVID-19) Results called to [facility] Misc Performing Lab [facility] 02/08/2020 4:41 PM CDT 02/09/2020 12:45 PM CDT Narrative Resulting Agency Comment CLI Starr [facility] MICROBIOLOGY - GENERAL ORDERABLES Final Result [facility] [address] [place] [address], [facility] [phone] documented in this encounter Visit Diagnoses Not on filedocumented in this encounter Additional Health Concerns Infection Onset Date Last Indicated Resolved Time Exposure, COVID-19 Comment:Added automatically based on COVID19 lab answers indicating exposure risk 02/08/2020 02/08/2020 02/23/2020 3:05 AM C DT documented as of this encounter Care Teams Mucking Machine Operator Relationship Specialty Start Date End Date Starr Bran PA [address] [place] [address] PCP - General Internal Medicine 12/30/18 documented as of this encounter
--- OUTSIDE RECORDS SUMMARY | 2024-07-18 20:38 | XMS_ITS | Encounter Summary ---
Author Organization [facility] Address [address] [address] Care Team Providers Care Wine Pasteurizer Name Role Phone Starr Bran Primary Care Provider [phone]- [phone] Reason for Referral * Diagnostic Imaging (Routine) - Closed Specialty Diagnoses / Procedures Referred By Hung gao Referred To Contact Procedures Screening Mammogram 2D Bilateral [facility] [address] [place] [address] Phone: tel: fax: Referral ID Status Reason Start Date Expiration Date Visits Re quested Visits Authorized [id number] Closed 06/06/2020 07/06/2021 1 1 E TENDER Reason for Visit * Reason Comments Annual Exam Encounter Details Date Type Department Care Team (Late st Contact Info) Description 06/06/2020 8:30 AM SWAGE TENDER Office Visit [facility] [address] [place] [address] Starr Bran PA [address] [facility] [place] [address] Annual physical exam (Primary Dx); Hyperglycemia; Vitamin D deficiency; Essential hypertension; Obesity (BMI 30-39.9); BMI 36.0-36.9,adult Social History Tobacco Use Types Packs/Day Years Used Date Smoking Tobacco: Never PHQ-2 Answer Date Recorded PHQ-2 Total Score (If total score is 3 or more points, staff should administer the PHQ-9) 0 06/06/2020 Comments Unknown Sex and Gender Information Value Date Recorded Sex Assigned at Not on file Legal Sex Female 10:31 AM SWAGE TENDER Gender Identity Female 02/02/2021 7:25 AM CDT Sexual Orientation Straight 02/02/2021 7: 25 AM CDT documented as of this encounter Last Filed Vital Signs Vital Sign Reading Time Taken Comments Blood Pressure 120/75 06/06/2020 8:35 AM SWAGE TENDER Pulse 84 06/06/2020 8:35 AM SWAGE TENDER Temperature 36.3 ??C (97.3 ??F) 06/06/2020 8:35 AM CS T Respiratory Rate - - Oxygen Saturation 99% 06/06/2020 8:35 AM SWAGE TENDER Inhaled Oxygen Concentration - - Weight 93.2 kg (205 lb 8 oz) 06/06/2020 8:35 AM SWAGE TENDER Height 160 cm (5' 2.99 ) 06/06/2020 8:35 AM SWAGE TENDER Body Mass Index 36.41 06/06/2020 8:35 AM SWAGE TENDER documented in this encounter Patient Instructions * Patient Instructions* Starr Bran PA - 06/06/2020 8:30 AM SWAGE TENDER Call your insurance regarding Shingrix Coverage ([id number]). Ask should you get it in the office or at the pharmacy for the best coverage. E TENDER documented in this encounter Ordered Prescriptions Prescription Sig Dispense Quantity Refills Last Filled Start Date End Date lisinopriL (PRINIVIL,ZESTRIL) 10 mg tablet Take 1 tablet (10 mg total) by mouth daily 90 tablet 3 06/06/2020 1 fluticasone propionate (FLONASE) 50 mcg/actuation nasal spray Administer 1 spray into each nostril daily 16 g 2 06/06/2020 1 documented in this encounter Progress Notes * Starr Bran PA - 06/06/2020 8:30 AM CST Images from the original note were not included. Subjective/Objective Patient ID: Viktoriya Bell is a 55 y.o. female. Chief Complaint Annual Exam HPI Patient presents for wellness exam and followup crhonic concerns. HTN -- still on lisinopril, Cologuard 01/2019 -- negative Mammogram -- due as last one was 02/2019 Flu vaccine updated at [facility] for the year. Tdap UTD Pt has noticed since working from home she is more sedentary and is a little more winded if she hasto run laundry up the stairs or come up the stairs with multiple bags of groceries. No CP. NO SOB. No palpitations. Does have some allergy sxs at time. --Encouraged patient to monitor sxs closely. Start to treat allergies. If has CP, SOB she is to call immediately. If starts having sxs while exercising, call immediately Encouraged to start walking dog 3-5 times a week to improve her conditioning. Review of Systems Constitutional: Negative for fever. HENT: Negative for congestion. Respiratory: Negative for shortness of breath. Cardiovascular: Negative for chest pain. Gastrointestinal: Negative for constipation and diarrhea. Vitals: 06/06/20 0835 BP: 120/75 BP Location: Left arm Patient Position: Sitting Pulse: 84 Temp: 36.3 ??C (97.3 ??F) SpO2: 99% Weight: 93.2 kg (205 lb 8 oz) Height: 160 cm (5' 2.99 ) Physical Exam Vitals signs and nursing note reviewed. Constitutional: Appearance: She [...] health. Reviewed immunizations Reviewed age appropirate screenings. Hyperglycemia (R73.9) Assessment & Plan: Pre-diabetes is a precursor to Dm. Stressed importance of working on diet (decrease your simple sugars and one carbohydrate with each meal) and increase you exercise to achieve weight loss and this will help prevent you from progressing to diabetes. Vitamin D deficiency (E55.9) Assessment & Plan: supplement Essential hypertension (I10) Assessment & Plan: Bp is stable/in acceptable range for any co-morbidities. Encouraged to limit sodium intake and exercise for weight control. Continue lisinopril Obesity (BMI 30-39.9) (E66.9) Assessment & Plan: Obesity is unchanged. Discussed the patient's BMI. The BMI is above average. BMI management plan is completed. BMI Follow-up includes: nutrition counseling, exercise counseling and education provided. BMI 36.0-36.9,adult (Z68.36) Assessment & Plan: Obesity is unchanged. Discussed the patient's BMI. The BMI is above average. BMI management plan is completed. BMI Follow-up includes: nutrition counseling, exercise counseling and education provided. Other orders - fluticasone propionate (FLONASE) 50 mcg/actuation nasal spray; Administer 1 spray into each nostril daily - lisinopriL (PRINIVIL,ZESTRIL) 10 mg tablet; Take 1 tablet (10 mg total) by mouth daily Starr Bran PA-C E TENDER documented in this encounter Miscellaneous Notes * Assessment & Plan Note - Starr Bran PA - 06/06/2020 9:20 AM SWAGE TENDER Associated Problem(s): Annual physical exam (Resolved 11/15/2020) Encouraged healthy lifestyle, good nutrition and exercise. Encouraged Calcium and Vitamin D and weight bearing exercise for bone health. Reviewed immunizations Reviewed age appropirate screenings. E TENDER * Assessment & Plan Note - Starr Bran PA - 06/06/2020 9:20 AM SWAGE TENDER Associated Problem(s): Other fatigue Probably multifactorial. Check labs and followup to re-evaluate E TENDER * Assessment & Plan Note - Starr Bran PA - 06/06/2020 9:20 AM SWAGE TENDER Associated Problem(s): BMI 38.0-38.9,adult Obesity is unchanged. Discussed the patient's BMI. The BMI is above average. BMI management plan is completed. BMI Follow-up includes: nutrition counseling, exercise counseling and education provided. E TENDER * Assessment & Plan Note - Starr Bran PA - 06/06/2020 9:19 AM SWAGE TENDER Associated Problem(s): Hyperglycemia Pre-diabetes is a precursor to Dm. Stressed importance of working on diet (decrease your simple sugars and one carbohydrate with each meal) and increase you exercise to achieve weight loss and this will help prevent you from progressing to diabetes. E TENDER * Assessment & Plan Note - Starr Bran PA - 06/06/2020 9:19 AM SWAGE TENDER Associated Problem(s): Obesity (BMI 30-39.9) (Resolved 10/04/2020) Obesity is unchanged. Discussed the patient's BMI. The BMI is above average. BMI management plan is completed. BMI Follow-up includes: nutrition counseling, exercise counseling and education provided. E TENDER * Assessment & Plan Note - Starr Bran PA - 06/06/2020 9:19 AM SWAGE TENDER Associated Problem(s): Vitamin D deficiency supplement E TENDER * Assessment & Plan Note - Starr Bran PA - 06/06/2020 9:19 AM SWAGE TENDER Associated Problem(s): Essential hypertension Bp is stable/in acceptable range for any co-morbidities. Encouraged to limit sodium intake and exercise for weight control. Continue lisinopril E TENDER documented in this encounter Plan of Treatment Not on file documented as of this encounter Procedures Procedure Name Priority Date/Time Associated Diagnosis Comments SCREENING MAMMOGRAM 2D BILATERAL Schedule Routine, Read Routine (OP Routine) 05/20/2020 documented in this encounter Results * Screening Mammogram 2D Bilateral (05/20/2020) SCRIBED BI-RADS 1 Anatomical Region Laterality Modality Breast Bilateral Mammography Historical Provider MD GUPTA MAMMO PROCEDURES [place] Result documented in this encounter Visit Diagnoses Diagnosis Annual physical exam- Primary Routine general medical examination at a health care facility Hyperglycemia Other abnormal glucose Vitamin D deficiency Essential hypertension Unspecified essential hypertension Obesity (BMI 30-39.9) BMI 36.0-36.9,adult documented in this encounter Discontinued Medications Medication Sig Discontinue Reason Start Date End Da te lisinopriL (PRINIVIL,ZESTRIL) 10 mg tablet TAKE 1 TABLET DAILY Reorder 05/24/2020 06/06/2020 documented as of this encounter Historical Medications * This list may reflect changes made after this encounter. medroxyPROGESTER one (DEPO-PROVERA) 400 mg/mL suspension Inject 400 mg/mL into the muscle as instructed 1 added in this encounter Care Teams Wine Pasteurizer Relationship Specialty Start Date End Date Starr Bran PA [address] [place] [address] PCP - General Internal Medicine 12/30/18 documented as of this encounter
--- OUTSIDE RECORDS SUMMARY | 2024-07-18 20:38 | XMS_ITS | Encounter Summary ---
Author Organization [facility] Address [address] [place] [address] Care Team Providers Care Slicer Machine Operator Name Role Phone Starr Bran Primary Care Provider [phone]- [phone] Reason for Visit * Reason Comments Follow-up Patient is here for her annual exam. Hypertension She needs her medica tion refilled. Encounter Details Date Type Department Care Team (Late st Contact Info) Description 01/19/2019 2:15 PM CDT Office Visit [facility] Family Medicine [address] [place] [address] Starr Bran PA [address] [place] [address] Annual physical exam (Primary Dx); Essential hypertension; Hyperglycemia; BMI 36.0-36.9,adult; Obesity (BMI 30-39.9); Colon cancer screening; Vitamin D deficiency; Lipid screening; Other fatigue Social History Tobacco Use Types Packs/Day Years Used Date Smoking Tobacco: Never Comments Unknown Sex and Gender Information Value Date Recorded Sex Assigned at Not on file Legal Sex Female 10:31 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 Gender Identity Female 02/02/2021 7:25 AM CDT Sexual Orientation Straight 02/02/2021 7: 25 AM CDT documented as of this encounter Last Filed Vital Signs Vital Sign Reading Time Taken Comments Blood Pressure 126/76 01/19/2019 3:04 PM CDT Pulse 88 01/19/2019 3:04 PM CDT Temperature 37.2 ??C (99 ??F) 01/19/2019 3:04 PM CDT Respiratory Rate - - Oxygen Saturation 98% 01/19/2019 3:04 PM CDT Inhaled Oxygen Concentration - - Weight 92.4 kg (203 lb 9.6 oz) 01/19/2019 3:04 P M CDT Height 160 cm (5' 3 ) 01/19/2019 3:04 PM CDT Body Mass Index 36.07 01/19/2019 3:04 PM CDT documented in this encounter Patient Instructions * Patient Instructions* Starr Bran PA - 01/19/2019 2:15 PM CDT Please feel free to call the office if you have any questions or concerns. Call your insurance regarding Shingrix Coverage ([id number]). Ask should you get it in the office or at the pharmacy for the best coverage. documented in this encounter Ordered Prescriptions Prescription Sig Dispense Quantity Refills Last Filled Start Date End Date lisinopril (PRINIVIL,ZESTRIL) 10 mg tablet Take 1 tablet (10 mg total) by mouth daily 90 tablet 3 01/19/2019 02/24/2020 documented in this encounter Progress Notes * Starr Bran PA - 01/19/2019 2:15 PM CDT Images from the original note were not included. Subjective/Objective Patient ID: Viktoriya Bell is a 53 y.o. female. Chief Complaint Follow-up (Patient is here for her annual exam.) and Hypertension (She needs her medication refilled.) HPI Pt presents for wellness exam and followup chronic concerns. bp stable. Dr. Bynum - Stopped the Depo with this last injection due to her age. Pt states her bones are in good shape. Mammogram - due in fall. Colonoscopy - hasn't had one --willing to consider cologuard. Review of Systems Constitutional: Negative for fever. HENT: Negative for congestion. Respiratory: Negative for shortness of breath. Cardiovascular: Negative for chest pain. Gastrointestinal: Negative for constipation and diarrhea. Vitals: 01/19/19 1504 BP: 126/76 BP Location: Left arm Patient Position: Sitting Pulse: 88 Temp: 37.2 ??C (99 ??F) TempSrc: Oral SpO2: 98% Weight: 92.4 kg (203 lb 9.6 oz) Height: 160 cm (5' 3 ) Physical Exam Constitutional: She is oriented to person, place, and time. She appears well- developed and well-nourished. HENT: Head: Normocephalic and atraumatic. Cardiovascular: Normal rate and regular rhythm. No murmur heard. Pulmonary/Chest: Effort normal and breath sounds normal. Abdominal: Soft. There is no tenderness. Musculoskeletal: She exhibits no edema. Neurological: She is alert and oriented to person, place, and time. Skin: Skin is warm and dry. No rash noted. Psychiatric: She has a normal mood and affect. Nursing note and vitals reviewed. Assessment/Plan Diagnoses and all orders for this visit: Annual physical exam (Z00.00) (Primary) Assessment & Plan: Encouraged healthy lifestyle, good nutrition and exercise. Encouraged Calcium and Vitamin D and weight bearing exercise for bone health. Reviewed immunizations Reviewed age appropirate screenings. Essential hypertension (I10) Assessment & Plan: Bp is stable/in acceptable range for any co-morbidities. Encouraged to limit sodium intake and exercise for weight control. Orders: - Comprehensive metabolic panel; Future Hyperglycemia (R73.9) Assessment & Plan: Pre-diabetes/hyperglycemia is a precursor to Dm. Stressed importance of working on diet (decrease your simple sugars and one carbohydrate with each meal) and increase you exercise to achieve weight loss and this will help prevent you from progressing to diabetes. Orders: - Hemoglobin A1c; Future - Comprehensive metabolic panel; Future BMI 36.0-36.9,adult (Z68.36) Assessment & Plan: Obesity is unchanged. Discussed the patient's BMI. The BMI is above average; BMI management plan iscompleted. General weight loss/lifestyle modification strategies discussed (elicit support from others; identify saboteurs; non-food rewards, etc). Encouraged increased exercise. Obesity (BMI 30-39.9) (E66.9) Assessment & Plan: Obesity is unchanged. Discussed the patient's BMI. The BMI is above average; BMI management plan iscompleted. General weight loss/lifestyle modification strategies discussed (elicit support from others; identify saboteurs; non-food rewards, etc). Encouraged increased exercise. Colon cancer screening (Z12.11) Assessment & Plan: cologuard order sent Orders: - Stool DNA - Cologuard; Future Vitamin D deficiency (E55.9) Assessment & Plan: supplement Lipid screening (Z13.220) Assessment & Plan: Check labs Orders: - Lipid panel; Future Other fatigue (R53.83) Assessment & Plan: Probably multifactorial. Check labs and followup to re-evaluate Orders: - TSH reflex to free T4; Future - Vitamin D 25 hydroxy; Future Other orders - lisinopril (PRINIVIL,ZESTRIL) 10 mg tablet; Take 1 tablet (10 mg total) by mouth daily Starr Bran PA-C documented in this encounter Miscellaneous Notes * Assessment & Plan Note - Starr Bran PA - 01/20/2019 12:32 AM CDT Associated Problem(s): Lipid screening (Resolved 02/14/2021) Check labs * Assessment & Plan Note - Starr Bran PA - 01/20/2019 12:32 AM CDT Associated Problem(s): Colon cancer screening (Resolved 06/05/2020) cologuard order sent * Assessment & Plan Note - Starr Bran PA - 01/20/2019 12:32 AM CDT Associated Problem(s): Annual physical exam (Resolved 11/15/2020) Encouraged healthy lifestyle, good nutrition and exercise. Encouraged Calcium and Vitamin D and weight bearing exercise for bone health. Reviewed immunizations Reviewed age appropirate screenings. * Assessment & Plan Note - Starr Bran PA - 01/20/2019 12:32 AM CDT Associated Problem(s): Other fatigue Probably multifactorial. Check labs and followup to re-evaluate * Assessment & Plan Note - Starr Bran PA - 01/20/2019 12:31 AM CDT Associated Problem(s): Hyperglycemia Pre-diabetes/hyperglycemia is a precursor to Dm. Stressed importance of working on diet (decrease your simple sugars and one carbohydrate with each meal) and increase you exercise to achieve weight loss and this will help prevent you from progressing to diabetes. * Assessment & Plan Note - Starr Bran PA - 01/20/2019 12:31 AM CDT Associated Problem(s): Vitamin D deficiency supplement * Assessment & Plan Note - Starr Bran PA - 01/20/2019 12:31 AM CDT Associated Problem(s): Essential hypertension Bp is stable/in acceptable range for any co-morbidities. Encouraged to limit sodium intake and exercise for weight control. * Assessment & Plan Note - Tanya Delgado MA - 01/19/2019 3:10 PM CDT Associated Problem(s): Obesity (BMI 30-39.9) (Resolved 10/04/2020) Obesity is unchanged. Discussed the patient's BMI. The BMI is above average; BMI management plan iscompleted. General weight loss/lifestyle modification strategies discussed (elicit support from others; identify saboteurs; non-food rewards, etc). Encouraged increased exercise. * Assessment & Plan Note - Tanya Delgado MA - 01/19/2019 3:09 PM CDT Associated Problem(s): BMI 38.0-38.9,adult Obesity is unchanged. Discussed the patient's BMI. The BMI is above average; BMI management plan iscompleted. General weight loss/lifestyle modification strategies discussed (elicit support from others; identify saboteurs; non-food rewards, etc). Encouraged increased exercise. documented in this encounter Plan of Treatment Not on file documented as of this encounter Procedures Procedure Name Priority Date/Time Associated Diagnosis Comments STOOL DNA ? COLOGUARD Routine 02/09/2019 Colon cancer screening THYROID FUNCTION CASCADE Routine 01/21/2019 9:01 AM CDT Other fatigue VITAMIN D 25 HYDROXY Routine 01/21/2019 9:01 AM CDT Other fatigue HEMOGLOBIN A1C Routine 01/21/2019 9:01 AM CDT Hyperglycemia LIPID PANEL Routine 01/21/2019 9:01 AM CDT Lipid screening COMPREHENSIVE METABOLIC PANEL Routine 01/21/2019 9:01 AM CDT Hyperglycemia Essential hypertension documented in this encounter Results * Stool DNA - Cologuard (02/09/2019) Stool us Starr SALVADOR LAB BODY FLUIDS AND STOOLS ORDERABLES Final Result [employer] * Vitamin D 25 hydroxy (01/21/2019 9:01 AM CDT) Vitamin D, 25-Hydroxy 35.1 30.0 - 100.0 ng/mL [facility] - 01 Comment: Vitamin D deficiency has been defined by the [place] of [employer] and an Endocrine Society practice guideline as a level of serum 25-OH vitamin D less than 20 ng/mL (1,2). The Endocrine Society went on to further define vitamin D insufficiency as a level between 21 and 29 ng/mL (2). 1. IOM ([place] of [employer]). 2010. Dietary reference ?? intakes for calcium and D. [place]: The ?? National Academies Press. 2. Jonathan MF, Eli WALSH, Santiago JOHNSON, et al. ?? Evaluation, treatment, and prevention of vitamin D ?? deficiency: an Endocrine Society clinical practice ?? guideline. JCEM. 2010; 96(7):1911-30. Blood specimen (specimen) 01/21/2019 9:01 AM CDT 01/21/2019 Narrative [facility] - 01/22/2019 4:11 PM CDT Performed at: ??01 - [address] ??[id number] Tongue Carrier: Parveen Lofton PhD, Phone: ??[phone] Starr SALVADOR LAB BLOOD ORDERABLES Final Result Performing Organization Address [facility] de Phone Number [facility] - * TSH reflex to free T4 (01/21/2019 9:01 AM CDT) TSH 2.120 0.450 - 4.500 uIU/mL [facility] - Blood specimen (specimen) 01/21/2019 9:01 AM CDT 01/21/2019 Narrative [facility] - 01/22/2019 4:11 PM CDT Performed at: ??[address] ??[id number] Tongue Carrier: Parveen Lofton PhD, Phone: ??[phone] Starr SALVADOR LAB BLOOD ORDERABLES Final Result Performing Organization Address [facility] Co de Phone Number [facility] - 01 * (ABNORMAL) Comprehensive metabolic panel (01/21/2019 9:01 AM CDT) Glucose 94 65 - 99 mg/dL [facility] - 01 BUN 12 6 - 24 mg/dL [facility] - 01 Creatinine, Serum 0.71 0.57 - 1.00 mg/dL [facility] - 01 eGFR If NonAfricn Am 97 >59 mL/min/1.7 3 [facility] - 01 eGFR If Africn Am 112 >59 mL/min/1.7 3 [facility] - 01 BUN/creat ratio 17 9 - 23 [facility] - 01 Sodium 145(H) 134 - 144 mmol/L [facility] - 01 Potassium, sr 4.3 3.5 - 5.2 mmol/L [facility] - 01 Chloride 105 96 - 106 mmol/L [facility] - 01 CO2 19(L) 20 - 29 mmol/L [facility] - 01 Calcium 9.2 8.7 - 10.2 mg/dL [facility] - 01 Protein, sr 6.6 6.0 - 8.5 g/dL [facility] - 01 Albumin 4.3 3.5 - 5.5 g/dL [facility] - 01 Globulin, Total 2.3 1.5 - 4.5 g/dL [facility] - 01 A/G Ratio 1.9 1.2 - 2.2 [facility] - 01 Bilirubin, Total 0.6 0.0 - 1.2 mg/dL [facility] - 01 Alk phos 64 39 - 117 IU/L [facility] - 01 AST 12 0 - 40 IU/L [facility] - 01 ALT 12 0 - 32 IU/L [facility] - 01 Blood specimen (specimen) 01/21/2019 9:01 AM CDT 01/21/2019 Narrative [facility] - 01/22/2019 4:11 PM CDT Performed at: ??01 - [facility] [address] ??[id number] Tongue Carrier: Parveen Lofton PhD, Phone: ??[phone] us Starr SALVADOR [facility] BLOOD ORDERABLES Final Result [facility] - 01 * Lipid panel (01/21/2019 9:01 AM CDT) Cholesterol 138 100 - 199 mg/dL [facility] - 01 Triglycerides 75 0 - 149 mg/dL [facility] - 01 HDL Cholesterol 45 >39 mg/dL [facility] - 01 VLDL 15 5 - 40 mg/dL [facility] - 01 LDL, calculated 78 0 - 99 mg/dL [facility] - 01 Blood specimen (specimen) 01/21/2019 9:01 AM CDT 01/21/2019 Narrative [facility] - 01/22/2019 4:11 PM CDT Performed at: ??01 - [facility] ??[id number] Tongue Carrier: Parveen Lofton PhD, Phone: ??[phone] Starr SALVADOR LAB BLOOD ORDERABLES Final Result Performing Organization Address [facility] de Phone Number [facility] * Hemoglobin A1c (01/21/2019 9:01 AM CDT) Hgb A1C 5.2 4.8 - 5.6 % [facility] - Comment: ? Prediabetes: 5.7 - 6.4 ? Diabetes: >6.4 ? Glycemic control for adults with diabetes: <7.0 Blood specimen (specimen) 01/21/2019 9:01 AM CDT 01/21/2019 Narrative [facility] - 01/22/2019 4:11 PM CDT Performed at: ?? - [facility] ??[id number] Tongue Carrier: Parveen Lofton PhD, Phone: ??[phone] Starr SALVADOR LAB BLOOD ORDERABLES Final Result Performing Organization Address [facility] de Phone Number [facility] documented in this encounter Visit Diagnoses Diagnosis Annual physical exam- Primary Routine general medical examination at a health care facility Essential hypertension Unspecified essential hypertension Hyperglycemia Other abnormal glucose BMI 36.0-36.9,adult Obesity (BMI 30-39.9) Colon cancer screening Special screening for malignant neoplasms, colon Vitamin D deficiency Lipid screening Screening for lipoid disorders Other fatigue documented in this encounter Discontinued Medications Medication Sig Discontinue Reason Start Date End Da te lisinopril (PRINIVIL,ZESTRIL) 10 mg tablet Take 1 tablet (10 mg total) by mouth daily Reorder 10/27/2018 01/19/2019 documented as of this encounter Historical Medications * This list may reflect changes made after this encounter. Medication Sig Dispense Quantity Refills Last Filled Start D ate End Date multivitamin tablet daily added in this encounter Care Teams Slicer Machine Operator Relationship Specialty Start Date End Date Starr Bran PA [address] [place] [address] PCP - General Internal Medicine 12/30/18 documented as of this encounter
--- OUTSIDE RECORDS SUMMARY | 2024-07-18 20:38 | XMS_ITS | Encounter Summary ---
Author Organization [facility] Healthcare Address [address] [place] [address] Care Team Providers Care Milk Drier Name Role Phone Unavailable Primary Care Provider Unavailabl e Encounter Details Date Type Department Care Team (Latest Contact Info) Description 03/28/2017 8:54 AM CDT - 03/28/2017 11:59 PM CDT Hospital Encounter [facility] [phone] Joaquim Bynum MD [address] [address] Discharge Disposition: Discharge to home or self care Social History Tobacco Use Types Packs/Day Years Used Date Smoking Tobacco: Never Assessed Comments Unknown Sex and Gender Information Value Date Recorded Sex Assigned at Not on file 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 Gender Identity Female 02/02/2021 7:25 AM CDT Sexual Orientation Straight 02/02/2021 7: 25 AM CDT documented as of this encounter Discharge Disposition Disposition Code Departure Means Destination Discharge to home or self care documented in this encounter Plan of Treatment Not on file documented as of this encounter Procedures Procedure Name Priority Date/Time Associated Diagnosis Comments MAMMOGRAPHY, UNILATERAL Routine 03/28/2017 12:00 AM CDT documented in this encounter Results * MAMMOGRAPHY, UNILATERAL (03/28/2017 12:00 AM CDT) Anatomical Region Laterality Modality Breast Mammography 03/28/2017 2:11 PM CDT Narrative 03/28/2017 2:11 PM CDT - MAMVAN DI SCREENING BILATERAL DIGITAL SCREENING MAMMOGRAM WITH CAD: 03/28/2017 CLINICAL: Routine screening. Patient has no complaints. ?? Comparison is made to exams dated: ??03/22/2016, 03/23/2015, 03/18/2014, 03/12/2013, and 03/11/2012 [facility]. ?? There are scattered fibroglandular elements in [...] by letter. ?? Lisa Ward M.D. ? [facility]:04/02/2017 16:08:37 ?? letter sent: Normal Exam ?? Mammogram BI-RADS: 1 Negative Radiologist: LISA WARD MD ?? Attending: ??JOAQUIM BYNUM Requesting: JOAQUIM BYNUM Requesting Fax: ?? Requesting ID: [id number] Attending Fax: ?? Attending ID: ?? [id number] Completed Time: ?? 03/28/2017 09:11 AM Dictated Time: ?N/A Transcribed Time: 04/03/2017 09:10 AM Signed by: ?LISA WARD MD ?? on 04/03/2017 09:10 AM Report To 1 ID: Report To 1 Name: , Report To 1 FAX: Report To 2 ID: Report To 2 Name: , Report To 2 FAX: Report To 3 ID: Report To 3 Name: , Report To 3 FAX: NextGen Order #: Procedure Note Miscellaneous, Not In File / Provider, MD Saloni - 04/03/2017 - KAYKAYARLETTE DI SCREENING BILATERAL DIGITAL SCREENING MAMMOGRAM WITH CAD: 03/28/2017 CLINICAL: Routine screening. Patient has no complaints. Comparison is made to exams dated: 03/22/2016, 03/23/2015, 03/18/2014, 03/12/2013, and 03/11/2012 [facility]. There are scattered fibroglandular elements in both [...] be contacted by letter. Lisa Ward M.D. [facility]:04/02/2017 16:08:37 letter sent: Normal Exam Mammogram BI-RADS: 1 Negative Radiologist: LISA WARD MD Attending: JOAQUIM BYNUM Requesting: JOAQUIM BYNUM Requesting Requesting ID: [id number] Attending Attending ID: [id number] Completed Time: 03/28/2017 09:11 AM Dictated Time: N/A Transcribed Time: 04/03/2017 09:10 AM Signed by: LISA WARD MD on 04/03/2017 09:10 AM Report To 1 ID: Report To 1 Name: , Report To 1 FAX: Report To 2 ID: Report To 2 Name: , Report To 2 FAX: Report To 3 ID: Report To 3 Name: , Report To 3 FAX: NextGen Order #: Joaquim Bynum MD IMG MAMMO PROCEDURES Final R esult documented in this encounter Visit Diagnoses Not on filedocumented in this encounter
--- OUTSIDE RECORDS SUMMARY | 2024-07-18 20:39 | XMS_ITS | Encounter Summary ---
Author Organization 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
== END 2024-07-13 07:40 | disposition home or self-care (01) ==
LOC: ANHIMG 07:41
PROVIDERS: PCP Physician Assistant; Visit Provider Obstetrics & Gynecology
DX: Z12.31 Encounter for screening mammogram for malignant neoplasm of breast (principal)
CPT/HCPCS: 77063; 77067

== ENCOUNTER 2025-07-15 08:58 | Outpatient (CLI) | payer BC, SELFPAY ==
--- NOTE | ~2025-07-15 | MM_ITS ---
EXAMINATION: MM screening gokul BI w raza HISTORY: Screening TECHNIQUE: Craniocaudal and mediolateral oblique 3-D tomosynthesis images were obtained and synthetic 2-D images were generated. CAD analysis was submitted and interpreted. COMPARISON: Comparison to multiple prior studies sequentially, with oldest reviewed study dated 04/20/2020. BREAST PARENCHYMAL COMPOSITION: Not dense: There are scattered areas of fibroglandular density. FINDINGS: There is no evidence of suspicious mass, calcification, or architectural distortion to suggest malignancy in either breast. There has been no suspicious interval change. IMPRESSION: 1. No mammographic evidence of malignancy. 2. Recommend routine screening mammography in one year. BI-RADS Category 1: Negative Reviewed, dictated and finalized at location O. [employer]
--- OUTSIDE RECORDS SUMMARY | 2025-07-15 09:20 | XMS_ITS | Encounter Summary ---
Author Organization [facility] Healthcare Address [address] [place] [address] Care Team Providers Care Airplane Charter Clerk Name Role Phone Starr Bran Primary Care Provider [phone] Bibiana Schuler MD Unavailable [phone] Cornelius Garcia DO Unavailable [phone] Madhu Brito MD Unavailable [phone] Encounter Details Date Type Department Care Team (Latest Contact Info) Description 06/22/2025 Results Follow-Up [facility] Family Medicine [address] [place] [address] Starr Bran PA [address] [place] [address] Comprehensive metabolic panel, Vitamin B12, Lipid panel, Additional followed-up results: 2 Social History Tobacco Use Types Packs/Day Years Used Date Smoking Tobacco: Never Smokeless Tobacco: Never Alcohol Use Standard Drinks/Week Comments Never 0 (1 standard drink = 0.6 oz pur e alcohol) PHQ-2 Answer Date Recorded PHQ-2 Total Score (If total score is 3 or more points, staff should administer the PHQ-9) 0 04/22/2025 AUDIT-C Answer Date Recorded Frequency of Alcohol Consumption Not on file 06/16/2025 Q2: How many drinks containi ng alcohol do you have on a typical day when you are drinking? Patient does not drink Frequency of Binge Drinking Not on file 05/29 Personal Safety Answer Date Recorded Have you ever been in or are you currently in a harmful physical or emotional relationship or is someone making you feel afraid or unsafe? 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 Gender Identity Female 02/02/2021 7:25 AM CDT Sexual Orientation Straight 02/02/2021 7: 25 AM CDT documented as of this encounter Plan of Treatment Not on file documented as of this encounter Visit Diagnoses Not on filedocumented in this encounter Care Teams Airplane Charter Clerk Relationship Specialty Start Date End Date Starr Bran PA [address] [place] [address] PCP - General Internal Medicine 12/30/18 Bibiana Schuler MD [address] [place] [address] Consulting Physician Gastroenterology 05/11/21 Cornelius Garcia DO [address] [place] [address] MEDICAL ONCOLOGY, [facility] [address] [place] [address] Medical Oncologist/Hematologis t Hematology and Oncology 09/26/21 aMdhu Brito MD [address] [place] [address] Consulting Physician Rheumatology 05/22/23 documented as of this encounter
--- OUTSIDE RECORDS SUMMARY | 2025-07-15 09:20 | XMS_ITS | Encounter Summary ---
Author Organization [facility] Healthcare Address [address] [place] [address] Care Team Providers Care Manager Food Beverage Name Role Phone Starr Bran Primary Care Provider [phone] Bibiana Schuler MD Unavailable [phone] Cornelius Garcia DO Unavailable [phone] Madhu Brito MD Unavailable [phone] Encounter Details Date Type Department Care Team (Late st Contact Info) Description 07/08/2025 Results Follow-Up [facility] Family Medicine [address] [place] [address] Starr Bran PA [address] [place] [address] Urine culture Urine, clean voided Social History Tobacco Use Types Packs/Day Years [...] you are drinking? Patient does not drink 11/19/202 5 Frequency of Binge Drinking Not on file 05/29 Personal Safety Answer Date Recorded Have you ever been in or are you currently in a harmful physical or emotional relationship or is someone making you feel afraid or unsafe? 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 Gender Identity Female 02/02/2021 7:25 AM CDT Sexual Orientation Straight 02/02/2021 7: 25 AM CDT documented as of this encounter Plan of Treatment Not on file documented as of this encounter Visit Diagnoses Not on filedocumented in this encounter Care Teams Manager Food Beverage Relationship Specialty Start Date End Date Starr Bran PA [address] [place] [address] PCP - General Internal Medicine 12/30/18 Bibiana Schuler MD [address] [place] [address] Consulting Physician Gastroenterology 05/11/21 Cornelius Garcia DO [address] [place] [address] MEDICAL ONCOLOGY, [address] [address] Medical Oncologist/Hematologis t Hematology and Oncology 09/26/21 Madhu Brito MD [address] [place] [address] Consulting Physician Rheumatology 05/22/23 documented as of this encounter
--- OUTSIDE RECORDS SUMMARY | 2025-07-15 09:20 | XMS_ITS | Clinical Summary ---
Author Organization [facility] Address [address] [place] [address] Care Team Providers Care Outside Cutter Name Role Phone Starr Bran Primary Care Provider [phone] Bibiana Schuler MD Unavailable [phone] Cornelius Garcia DO Unavailable [phone] Madhu Brito MD Unavailable [phone] Allergies No known active allergies Medications multivitamin tablet daily Active omeprazole (PriLOSEC) 20 mg capsule Take 2 capsules (40 mg total) by mouth daily Active aspirin 81 mg enteric coated tablet Take 1 tablet (81 mg total) by mouth daily Active lisinopriL (PRINIVIL,ZESTR IL) 10 mg tablet Take 1 tablet (10 mg total) by mouth daily 11/08/19 25 Active gabapentin (NEURONTIN) 300 mg capsuleIndicati ons:Vasomotor phenomenon Take 1 capsule (300 mg total) by mouth 2 (two) times a day 180 capsule 1 05/10/20 25 Active FeroSuL 325 mg (65 mg iron) tabletIndicatio ns:Low vitamin B12 level TAKE 1 TABLET BY MOUTH TWICE DAILY 180 tablet 2 06/29/20 25 Active mycophenolate mofetil (CELLCEPT) 500 mg tablet Take 2 tablets (1,000 mg total) by mouth 2 (two) times a day 360 tablet 07/05/20 25 Active FeroSuL 325 mg (65 mg iron) tabletIndicatio ns:Low vitamin B12 level TAKE 1 TABLET BY MOUTH TWICE DAILY 180 tablet 2 12/11/19 24 025 Discontinued mycophenolate mofetil (CELLCEPT) 500 mg tablet Take 2 tablets (1,000 mg total) by mouth 2 (two) times a day 360 tablet 12/24/19 25 025 Discontinued(Re order) nitrofurantoin monohydrate (MACROBID) 100 mg capsuleIndicati ons:Urinary Tract/Genitouri nary Infection Take 1 capsule (100 mg total) by mouth 2 (two) times a day for 5 days 10 capsule 07/06/20 25 025 Hospital, Clinic, or Other Facility Administered Medication Ordered Dose Route Frequency Start Date End Date Status cyanocobalamin (Vitamin B-12) injection 1,000 mcgIndications:Vitamin B deficiency 1000 mcg IM Every 30 days 08/06/2024 Active Active Problems Problem Noted Date Diagnosed Date Raynaud's disease without gangrene 07/05/2025 Assessment & Plan (07/05/2025 2:02 PM DRY JANITOR): Mainly affecting the right 2nd and 5th digits. No digital ulcerations. Likely secondary to known systemic sclerosis. -Discussed conservative measures such as keeping core warm, wearing gloves/hand warmers, and avoiding cold triggers. -Discussed that oral/topical CCB can be used if symptoms progress. Gastroesophageal reflux disease without esophagi tis 05/01/2025 Obesity (BMI 30-39.9) 04/22/2025 Assessment & Plan (04/22/2025 8:59 AM CDT): Discussed the patient's BMI. The BMI is above average. BMI management plan is completed. BMI Follow-up includes: nutrition counseling, exercise counseling and education provided. BMI 36.0-36.9,adult 04/22/2025 Assessment & Plan (04/22/2025 8:59 AM CDT): Discussed the patient's BMI. The BMI is above average. BMI management plan is completed. BMI Follow-up includes: nutrition counseling, exercise counseling and education provided. Paresthesia of hand, bilateral 06/15/2024 Overview (07/14/2024): EMG/NCS BUE 06/2024: electrodiagnostic evidence of a mild bilateral median motor-sensory focal distal neuropathy at the wrist, which could represent a bilateral carpal tunnel syndrome. Findings are about the same on the right and left side. Assessment & Plan (12/23/2024 12:04 PM CDT): EMG/NCS BUE 06/2024 showed evidence for bilateral mild carpal tunnel syndrome. Recommend wearing wrist splints at night. Symptoms currently remain tolerable. If symptoms progress, next step would be having her evaluated by ortho. Assessment & Plan (09/23/2024 11:43 AM DRY JANITOR): EMG/NCS BUE 06/2024 showed evidence for bilateral mild carpal tunnel syndrome. Recommend wearing wrist splints at night. Symptoms currently remain tolerable. If symptoms progress, next step would be having her evaluated by ortho. Assessment & Plan (06/15/2024 10:52 AM DRY JANITOR): Get bilateral UE EMG/NCS to evaluate for [...] movement. B12 deficiency 10/06/2023 Assessment & Plan (11/07/2024 11:11 PM CDT): Continue supplement B12 with injections and monitor with labs Assessment & Plan (02/02/2024 9:49 PM CDT): Continue B12 Assessment & Plan (11/21/2023 8:34 AM CDT): B12 injection provided in the office today Systemic sclerosis 07/11/2023 Overview (04/08/2025): Labs 05/18/23: Negative LAC, negative ALEXA, CRP [...] median nerve at 0.13 cm2 is identified. US right hand/wrist (04/07/25): 1. Dorsal wrist: Grade 1 power doppler. 2. Radial scaphoid joint: Grade 1 power doppler. 3. 2nd and 3rd PIP joints: Moderate synovial thickening. 4. An enlarged median nerve at 0.13 cm2 is identified. 5. In comparison to previous US of the right hand/wrist from 12/18/23, there is resolution of the power doppler previously seen in the 2nd PIP joint and decreased synovial thickening in the PIP joints. 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 Rheumatologic evaluation revealed +AMINA 1:2560 centromere pattern and +CENP >240 along with low positive RF IgM (20). LAC and ALEXA were negative. Baseline TTE (2023) showed grade 1 diastolic dysfunction which was also noted on TTE in 2020 however there are no signs to suggest PAH. PFT (2023) showed mildly reduced DLCO but otherwise this is not too concerning and will just continue to monitor. New symptoms of Raynaud's w/o digital ulcerations first noted by patient in 05/2025. Denies photosensitivity, rashes, sicca, dysphagia, oral/nasal sores. +AMINA and CENP along with hx of GAVE and now Raynaud's are consistent with scleroderma. Baseline PFT and TTE (08/2023) are reassuring and do not suggest PAH at this time. -Continue cellcept 1000mg BID. -Recent labs reviewed with patient. -Follow up in 3 months. Sooner if needed. 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 Rheumatologic evaluation revealed +AMINA 1:2560 centromere pattern and +CENP >240 along with low positive RF IgM (20). LAC and ALEXA were negative. Baseline TTE (2023) showed grade 1 diastolic dysfunction which was also noted on TTE in 2020 however there are no signs to suggest PAH. PFT (2023) showed mildly reduced DLCO but otherwise this is not too concerning and will just continue to monitor. Fingers appear puffy but there is no obvious sclerodactyly. Reports increasing stiffness/swelling in hands recently, worse in the morning. Skin peeling to her fingers is likely not related to the scleroderma and she denies any color changes or ulcerations to fingers. Denies photosensitivity, rashes, sicca, dysphagia, raynaud's, oral/nasal sores. +AMINA and CENP along with hx of GAVE are consistent with scleroderma. Baseline PFT and TTE (08/2023) are reassuring and do not suggest PAH at this time. -Continue cellcept 1000mg BID. -Routine labs today. Added RA panel and right hand US to evaluate for new hand symptoms. -Follow up in 3 months. Sooner if needed. 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 Rheumatologic evaluation revealed +AMINA 1:2560 centromere pattern and +CENP >240 along with low positive RF IgM (20). LAC and ALEXA were negative. Baseline TTE (2023) showed grade 1 diastolic dysfunction which was also noted on TTE in 2020 however there are no signs to suggest PAH. PFT (2023) showed mildly reduced DLCO but otherwise this is not too concerning and will just continue to monitor. Fingers appear puffy but there is no obvious synovitis or sclerodactyly. Denies photosensitivity, rashes, sicca, dysphagia, raynaud's, oral/nasal sores. +AMINA and CENP along with hx of GAVE are consistent with scleroderma. Baseline PFT and TTE (08/2023) are reassuring and do not suggest PAH at this time. -Continue cellcept 1000mg BID. -Advised that she can continue Cellcept with non-live vaccinations and encouraged to get the Tdap vaccine. -Routine labs today. -Follow up in 3 months. Sooner if needed. Assessment & Plan (11/07/2024 11:11 PM CDT): Continue per [facility]. Has systemic sclerosis. Currently on CellCept 500. 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 Rheumatologic evaluation revealed +AMNIA 1:2560 centromere pattern and +CENP >240 along with low positive RF IgM (20). LAC and ALEXA were negative. Baseline TTE (2023) showed grade 1 diastolic dysfunction which was also noted on TTE in 2020 however there are no signs to suggest PAH. PFT (2023) showed mildly reduced DLCO but otherwise this is not too concerning and will just continue to monitor. Fingers appear puffy but there is no obvious synovitis or sclerodactyly. Denies photosensitivity, rashes, sicca, dysphagia, raynaud's, oral/nasal sores. +AMINA and CENP along with hx of GAVE are consistent with scleroderma. Baseline PFT and TTE (08/2023) are reassuring and do not suggest PAH at this time. -Continue cellcept 1000mg BID. -Routine labs today. -Follow up in 3 months. Sooner if needed. Assessment & Plan (06/15/2024 10:12 AM DRY JANITOR): 59-year-old female with PMHx of RLS, anemia [...] PE DVT. Will reach out to her machine clothing man to discuss +/- AC prophylaxis with this patient Assessment & Plan (10/06/2023 5:11 PM CDT): Continue management with [facility]. Assessment & Plan (09/12/2023 12:58 PM DRY JANITOR): 58-year-old female with PMHx of RLS, anemia [...] needed. Assessment & Plan (08/08/2023 2:59 PM DRY JANITOR): 58-year-old female with PMHx of RLS, anemia [...] needed. Assessment & Plan (07/11/2023 1:20 PM DRY JANITOR): 58-year-old female with PMHx of RLS, anemia [...] Sooner if needed. Seen with Dr. Brito. Morbid obesity 05/09/2023 Assessment & Plan (11/07/2024 11:12 PM CDT): Discussed the patient's BMI. The BMI is above average. BMI management plan is completed. BMI Follow-up includes: nutrition counseling, exercise counseling and education provided. Patient has an obesity-related condition (not limited to: hypertension, obstructive sleep apnea, osteoarthritis, hyperlipidemia, diabetes, etc.). Therefore, morbid obesity may be documented for patients with a BMI between 35.00-39.99. Assessment & Plan (07/12/2024 8:31 PM DRY JANITOR): Discussed the patient's BMI. The BMI is [...] HS. Kit it monitor closely Arthralgia 02/05/2023 Overview (03/31/2025): 03/25/25: RF <10, CCP <16, MVC <20 Assessment & Plan (07/05/2025 2:00 PM DRY JANITOR): Elevated RF (20) on AVISE. Repeat serologies (02/2025) show negative RF and CCP. R hand/wrist US (11/2023 and 03/2025) do not show any signs to suggest an inflammatory arthritis. Assessment & Plan (03/25/2025 11:35 AM CDT): Elevated RF (20) on AVISE. R hand/wrist US (11/2023) that did not show any signs to suggest an inflammatory arthritis. Today c/o pain and AM swelling/stiffness in the hands (R>L) that appears to have progressed. Will order imaging and RA serologies to evaluate for inflammation given hx of positive RF and increased hand symptoms. Assessment & Plan (12/23/2024 12:03 PM CDT): Stable, intermittent. Elevated RF (20) on AVISE. C/o pain and AM swelling/stiffness in the hands (R>L) that appears to have progressed so repeated R hand/wrist US (11/2023) that did not show any signs to suggest an inflammatory arthritis. Assessment & Plan (09/23/2024 9:36 AM DRY JANITOR): Elevated RF (20) on AVISE. C/o pain and AM swelling/stiffness in the hands (R>L) that appears to have progressed so repeated R hand/wrist US (11/2023) that did not show any signs to suggest an inflammatory arthritis. Assessment & Plan (06/15/2024 10:09 AM DRY JANITOR): Elevated RF (20) on AVISE. C/o pain [...] RA. Assessment & Plan (09/12/2023 2:04 PM DRY JANITOR): Elevated RF (20) on AVISE. C/o pain and AM swelling/stiffness in the hands (R>L) but does not limit her daily activities and is overall tolerable. US R hand/wrist (07/2022) showed mild inflammatory findings but nothing obvious to suspect active RA at this time so will just continue to monitor symptoms. Assessment & Plan (08/08/2023 2:10 PM DRY JANITOR): Elevated RF (20) on AVISE. Now c/o new pain in R 5th PIP along with AM stiffness in the lower extremities. US R hand/wrist (07/2022) showed mild inflammatory findings but nothing obvious to suspect active RA at this time so will just continue to monitor symptoms. Assessment & Plan (07/11/2023 1:22 PM DRY JANITOR): Elevated RF (20) on AVISE. Now c/o [...] be checks to further investigate autoimmune processes. Fatigue 05/26/2022 Assessment & Plan (02/05/2023 1:53 [...] time. Assessment & Plan (07/31/2022 3:14 PM DRY JANITOR): Probably multifactorial. Check labs and followup to re-evaluate Assessment & Plan (05/26/2022 12:34 PM CDT): Probably multifactorial. Check labs and followup to re-evaluate Vasomotor symptoms due to menopause 08/31/2021 Assessment & Plan (07/12/2024 8:30 PM DRY JANITOR): Vasomotor symptoms have stabilized. She discontinued the [...] mg. Assessment & Plan (10/06/2022 10:25 PM DRY JANITOR): Stable with Effexor 225 Assessment & Plan (07/31/2022 3:14 PM DRY JANITOR): Continue Effexor 225 daily Assessment & Plan (01/21/2022 9:19 PM CDT): Will increase the Effexor to 225 mg. Will see if this helps with the vasomotor symptoms as well as her depression Assessment & Plan (10/16/2021 9:46 AM CDT): Continue the Effexor Assessment & Plan (08/31/2021 9:43 PM DRY JANITOR): Status post hysterectomy with bilateral salpingo oophorectomy. [...] PAP Assessment & Plan (08/31/2021 9:41 PM DRY JANITOR): Status post hysterectomy with bilateral salpingo oophorectomy. She is unable to tolerate estrogen due to history of DVT and PE. She has been on Effexor 75 mg and is not getting full control of her vasomotor symptoms so will increase to 150 mg. Follow-up in 6-8 weeks to reassess Moderate episode of recurrent major depressive d isorder 04/23/2021 Assessment & Plan (11/07/2024 11:11 PM CDT): Depression symptoms have stabilized and currently doing well without medications. Continue to monitor Assessment & Plan (07/12/2024 8:30 PM DRY JANITOR): Depression symptoms have stabilized. She stopped the Effexor primarily because she felt like her perimenopausal symptoms head resolved. Will continue to monitor at this point. Assessment & Plan (10/06/2023 5:11 PM CDT): Continue venlafaxine 225 mg daily Assessment & Plan (05/18/2023 11:49 AM CDT): Symptoms still stable. Using Effexor 225 for vasomotor symptoms as well as depression. Assessment & Plan (10/06/2022 10:25 PM DRY JANITOR): Stable with venlafaxine 225 mg Assessment & Plan (07/31/2022 3:13 PM DRY JANITOR): Continue with the Effexor 225 daily Assessment [...] dose. Assessment & Plan (08/31/2021 9:40 PM DRY JANITOR): Increase Effexor to 150 mg. Continue to [...] 28 and then reassess Has followup with [facility] Awaiting clotting workup results. History of DVT (deep vein thrombosis) 11/15/2020 [...] clotting issues. I will reach out her machine clothing man and inquire about the benefit and risks of monitoring versus lifetime anticoagulation based on the new diagnosis. Assessment & Plan (08/31/2021 9:40 PM DRY JANITOR): Hematology has instructed her to stop the [...] chronic blood loss 10/09/2020 Assessment & Plan (11/07/2024 11:10 PM CDT): Patient has anemia. She has corrected the iron-deficiency anemia and continued to do vitamin B12 injections. She continues to have fatigue from the anemia as well as the autoimmune/scleroderma. Recommend and approve 3 days at home of the 5 to help decrease the exertion it requires to get to work. Paperwork completed to reflect the above Assessment & Plan (12/09/2023 12:03 PM CDT): Hx gastric antral vascular ectasia (GAVE syndrome) which can be associated with scleroderma. Improvement of anemia since starting treatment with cellcept in 06/2023. Assessment & Plan (09/12/2023 1:02 PM DRY JANITOR): Hx gastric antral vascular ectasia (GAVE syndrome) which can be associated with scleroderma. Improvement of anemia since starting treatment with cellcept in 06/2023. Assessment & Plan (06/17/2023 2:16 PM DRY JANITOR): Hx gastric antral vascular ectasia (GAVE syndrome) [...] 12/07/2022 Assessment & Plan (10/06/2022 10:25 PM DRY JANITOR): Persistent anemia. Appears to be secondary to GI cause. Continue per Dr. Schuler. Continue with iron vitamin-C supplement Continue B12 supplementation Assessment & Plan (07/31/2022 3:13 PM DRY JANITOR): Persistent anemia that appears to be GI [...] any bleeding she is to call her pricing lead as I do not want to have [...] grade 1 diastolic dysfunction Assessment & Plan (07/05/2025 1:41 PM DRY JANITOR): Stable. Denies chest pain or shortness of breath today. Baseline CXR (2022) unremarkable. Baseline PFT and TTE (08/2023) are unremarkable for signs of PAH. Grade 1 diastolic dysfunction noted on TTE but this was also seen on past TTE in 2020. PFT showed only mildly reduced diffuse capacity. -Repeat PFT/TTE every 3-4 years to monitor. Should symptoms progress, consider repeating PFT sooner. Assessment & Plan (03/25/2025 11:29 AM CDT): Stable. Denies chest pain or shortness of breath at this visit. CXR unremarkable. Baseline PFT and TTE (08/2023) are unremarkable for signs of PAH. Grade 1 diastolic dysfunction noted on TTE but this was also seen on past TTE in 2020. PFT showed only mildly reduced diffuse capacity. Repeat every 3-4 years to monitor. Should symptoms progress, consider repeating PFT sooner. Assessment & Plan (12/23/2024 12:04 PM CDT): Stable. CXR unremarkable. Baseline PFT and TTE (08/2023) are unremarkable for signs of PAH. Grade 1 diastolic dysfunction noted on TTE but this was also seen on past TTE in 2020. PFT showed only mildly reduced diffuse capacity. Repeat every 3-4 years to monitor. Should symptoms progress, consider repeating PFT sooner. Assessment & Plan (09/23/2024 11:43 AM DRY JANITOR): Stable. CXR unremarkable. Baseline PFT and TTE (08/2023) are unremarkable for signs of PAH. Grade 1 diastolic dysfunction noted on TTE but this was also seen on past TTE in 2020. PFT showed only mildly reduced diffuse capacity. Should symptoms progress, consider repeating PFT. Assessment & Plan (06/15/2024 10:09 AM DRY JANITOR): CXR unremarkable. Baseline PFT and TTE are [...] capacity. Assessment & Plan (09/12/2023 1:00 PM DRY JANITOR): CXR unremarkable. New diagnosis of systemic sclerosis. Baseline PFT and TTE are unremarkable for signs of PAH. Grade 1 diastolic dysfunction noted on TTE but this was also seen on past TTE in 2020. PFT showed only mildly reduced diffuse capacity. Assessment & Plan (08/08/2023 2:59 PM DRY JANITOR): CXR unremarkable. New diagnosis of systemic sclerosis. Will get baseline PFT and TTE due to risk for pulm artery HTN. Assessment & Plan (07/11/2023 1:20 PM DRY JANITOR): CXR unremarkable. New diagnosis of systemic sclerosis. [...] to call her to take her to [facility] now. Assessment & Plan (10/09/2020 7:39 PM CDT): Appears to be improving since recving 3 units and H/H stabilized. Will monitor. If returns, may reschedule with Cardio. Assessment & Plan (09/25/2020 9:52 AM DRY JANITOR): Persistent sxs with activity. If she has CP, increased SOB, HR over 120 sustained or syncope she is to go to the ER. Check labs Limit caffeine Refer to cardio for further evaluation. Unable to do EKG as video visit. BMI 37.0-37.9, adult 01/19/2019 Assessment & Plan (10/21/2024 9:33 AM CDT): Discussed the patient's BMI. The BMI is above average. BMI management plan is completed. BMI Follow-up includes: nutrition counseling, exercise counseling and education provided. Assessment & Plan (07/01/2024 10:10 AM DRY JANITOR): Discussed the patient's BMI. The BMI is above average. BMI management plan is completed. BMI Follow-up includes: nutrition counseling, exercise counseling and education provided. Assessment & Plan (11/21/2023 8:34 AM CDT): Discussed the patient's BMI. The BMI is above average. BMI management plan is completed. BMI Follow-up includes: nutrition counseling, exercise counseling and education provided. Assessment & Plan (06/06/2020 9:20 AM DRY JANITOR): Obesity is unchanged. Discussed the patient's BMI. [...] 01/19/2019 Assessment & Plan (07/12/2024 8:29 PM DRY JANITOR): Check labs Assessment & Plan (07/31/2022 3:12 PM DRY JANITOR): Check labs Assessment & Plan (05/26/2022 12:29 [...] diabetes. Assessment & Plan (09/25/2020 9:53 AM DRY JANITOR): Pre-diabetes/hyperglycemia is a precursor to Dm. Stressed importance of working on diet (decrease your simple sugars and one carbohydrate with each meal) and increase you exercise to achieve weight loss and this will help prevent you from progressing to diabetes. Assessment & Plan (06/06/2020 9:20 AM DRY JANITOR): Pre-diabetes is a precursor to Dm. Stressed [...] re-evaluate Assessment & Plan (09/25/2020 9:53 AM DRY JANITOR): Probably multifactorial. Check labs and followup to re-evaluate Assessment & Plan (06/06/2020 9:20 AM DRY JANITOR): Probably multifactorial. Check labs and followup to re-evaluate Assessment & Plan (01/20/2019 12:32 AM CDT): Probably multifactorial. Check labs and followup to re-evaluate Essential hypertension 01/16/2019 Assessment & Plan (11/07/2024 11:09 PM CDT): Bp is stable/in acceptable range for any co-morbidities. Encouraged to limit sodium intake and exercise for weight control. Continue lisinopril 10 Assessment & Plan (07/12/2024 8:29 PM DRY JANITOR): Bp is stable/in acceptable range for any [...] needed. Assessment & Plan (10/06/2022 10:22 PM DRY JANITOR): Bp is stable/in acceptable range for any co-morbidities. Encouraged to limit sodium intake and exercise for weight control. Continue lisinopril 10 Assessment & Plan (07/31/2022 3:12 PM DRY JANITOR): Bp is stable/in acceptable range for any [...] closely Assessment & Plan (09/25/2020 9:53 AM DRY JANITOR): Stable by history of home readings. Continue the lisinopril Assessment & Plan (06/06/2020 9:19 AM DRY JANITOR): Bp is stable/in acceptable range for any co-morbidities. Encouraged to limit sodium intake and exercise for weight control. Continue lisinopril Assessment & Plan (01/20/2019 12:31 AM CDT): Bp is stable/in acceptable range for any co-morbidities. Encouraged to limit sodium intake and exercise for weight control. Vitamin D deficiency 01/16/2019 Assessment & Plan (07/12/2024 8:29 PM DRY JANITOR): Supplement Assessment & Plan (10/06/2023 5:10 PM CDT): Supplement Assessment & Plan (05/18/2023 11:47 AM CDT): Continue supplementation Assessment & Plan (02/05/2023 1:50 PM CDT): Continue with daily supplementation Assessment & Plan (07/31/2022 3:12 PM DRY JANITOR): Supplement Assessment & Plan (05/26/2022 12:29 PM [...] supplement Assessment & Plan (06/06/2020 9:19 AM DRY JANITOR): supplement Assessment & Plan (01/20/2019 12:31 AM CDT): supplement Resolved Problems Problem Noted Date Diagnosed Date Resolved Date Annual physical exam 07/12/2024 025 Assessment & Plan (07/12/2024 8:31 PM DRY JANITOR): Encouraged healthy lifestyle, good nutrition and exercise. Encouraged Calcium and Vitamin D and weight bearing exercise for bone health. Reviewed immunizations Reviewed age appropirate screenings. Right calf pain 11/21/2023 02/02/2024 Assessment & [...] Flu vaccine updated in the office today Positive AMINA (antinuclear antibody) 05/18/2023 07/05/2025 Overview (06/25/2023): Labs 05/18/23: Negative LAC, negative ALEXA, CRP 0.29mg/dL, ESR 6, Hep panel negative AVISE 05/18/23: +AMINA 1:2560 centromere, CENP >240, RF IgM 20, normal C3/4 CXR 05/2023: unremarkable Assessment & Plan (06/17/2023 2:12 PM DRY JANITOR): 58-year-old female with PMHx of RLS, anemia [...] underlying autoimmune condition contributing to her symptoms. BMI 35.0-35.9,adult 05/09/2023 11/20/19 24 Assessment & Plan (10/06/2023 5:11 PM CDT): [...] 02/06/20 Assessment & Plan (10/04/2022 9:08 AM DRY JANITOR): Discussed the patient's BMI. The BMI is above average. BMI management plan is completed. BMI Follow-up includes: nutrition counseling, exercise counseling and education provided. Morbid obesity 10/04/2022 02/05/2023 Assessment & Plan (10/06/2022 10:26 PM DRY JANITOR): Discussed the patient's BMI. The BMI is above average. BMI management plan is completed. BMI Follow-up includes: nutrition counseling, exercise counseling and education provided. Patient has an obesity-related condition (not limited to: hypertension, obstructive sleep apnea, osteoarthritis, hyperlipidemia, diabetes, etc.). Therefore, morbid obesity may be documented for patients with a BMI between 35.00-39.99. Anemia 09/06/2022 11/07/2024 Assessment & Plan (07/12/2024 8:29 PM DRY JANITOR): Anemia had normalized. She used anticoagulation over [...] They completed EGD with ablation on 12/07/2022 Flu vaccine need 05/26/2022 07/30/2022 Assessment & Plan (05/26/2022 12:34 PM CDT): Flu vaccine updated in the office today Vitamin B12 deficiency 05/26/202205/26 Lipid screening 05/26/2022 07/30/2022 Assessment & Plan (05/26/2022 12:35 PM CDT): Check labs Morbid obesity 05/17/2022 10/04/2022 Assessment & Plan (07/31/2022 3:14 PM DRY JANITOR): Discussed the patient's BMI. The BMI is [...] 10/05/19 Assessment & Plan (07/31/2022 3:14 PM DRY JANITOR): Discussed the patient's BMI. The BMI is [...] 05/17/20212021 Assessment & Plan (08/31/2021 9:41 PM DRY JANITOR): Obesity is unchanged. Discussed the patient's BMI. [...] 10/17/19 Assessment & Plan (08/31/2021 9:41 PM DRY JANITOR): Obesity is unchanged. Discussed the patient's BMI. [...] and education provided. BMI 34.0-34.9,adult 11/15/2020 12/15/19 21 Assessment & Plan (11/15/2020 8:32 AM CDT): Obesity is unchanged. Discussed the patient's BMI. The BMI is above average. BMI management plan is completed. BMI Follow-up includes: nutrition counseling, exercise counseling and education provided. Low vitamin B12 level 11/15/20202024 Overview (12/14/2020): Elevated parietal cell antibody (49.9) in 10/2020 Assessment & Plan (07/12/2024 8:31 PM DRY JANITOR): Supplement is still needed she has a [...] monthly Assessment & Plan (10/06/2022 10:25 PM DRY JANITOR): Continue B12 supplementation with monthly injections Assessment & Plan (07/31/2022 3:13 PM DRY JANITOR): Continue monthly injections and monitor labs Assessment [...] tommorow then Qweek x 4. Check labs Diabetes mellitus screening 11/15/2020 02/14/2021 Assessment & [...] provided. Assessment & Plan (10/04/2020 3:59 PM DRY JANITOR): Obesity is unchanged. Discussed the patient's BMI. [...] provided. Assessment & Plan (10/04/2020 3:59 PM DRY JANITOR): Obesity is unchanged. Discussed the patient's BMI. The BMI is above average. BMI management plan is completed. BMI Follow-up includes: nutrition counseling, exercise counseling and education provided. Obesity (BMI 30-39.9) 01/19/20192020 Assessment & Plan (06/06/2020 9:19 AM DRY JANITOR): Obesity is unchanged. Discussed the patient's BMI. [...] 021 Assessment & Plan (06/06/2020 9:21 AM DRY JANITOR): Encouraged healthy lifestyle, good nutrition and exercise. [...] 02/14/2021 Assessment & Plan (09/25/2020 9:53 AM DRY JANITOR): Check labs Assessment & Plan (01/20/2019 12:32 [...] Encounters Date Type Department Care Team Description 07/08/2025 Results Follow-Up [address] [place] [address] Starr Bran PA Urine culture Urine, clean voided 07/06/2025 11:45 AM DRY JANITOR Clinical Support [address] [place] [address] Dysuria (Primary Dx) 07/06/[address] [place] [phone] Starr Bran PA 07/05/2025 1:45 PM DRY JANITOR Office Visit [address] [phone] Jing Ewrin PA Systemic sclerosis (HCC) (Primary Dx); Arthralgia of right hand; PHAN (dyspnea on exertion); long-term current use of therapeutic drug; Raynaud's disease without gangrene 07/01/2025 8:30 AM DRY JANITOR Clinical Support [address] [address] 06/22/2025 Results Follow-Up [address] [address] Starr Bran PA Comprehensive metabolic panel, Vitamin B12, Lipid panel, Additional followed-up results: 2 06/16/2025 8:45 AM DRY JANITOR Office Visit [facility] [address] [place] [phone] Cornelius Garcia DO History of DVT (deep vein thrombosis) (Primary Dx); History of pulmonary embolus (PE); Iron deficiency anemia due to chronic blood loss 06/16/2025 8:15 AM DRY JANITOR Lab [facility] at [address] [address] History of DVT (deep vein thrombosis); Iron deficiency anemia due to chronic blood loss; Lipid screening; B12 deficiency; Hyperglycemia 06/10/2025 8:30 AM DRY JANITOR Clinical Support [address] [phone] 05/19/2025 9:00 AM CDT Clinical Support [address] [phone] 05/10/[address] [address] Starr Bran PA 04/29/2025 8:30 AM CDT Clinical Support [address] [place] [address] 04/22/2025 8:00 AM CDT Office Visit [address] [place] [address] Starr rBan PA Annual physical exam (Primary Dx); Systemic sclerosis (HCC); Arthralgia, unspecified joint; Restless legs; B12 deficiency; Iron deficiency anemia due to chronic blood loss; Essential hypertension; Gastroesophageal reflux disease without esophagitis; Fatigue, unspecified type; Hyperglycemia; Lipid screening; Obesity (BMI 30-39.9); BMI 36.0-36.9,adult from Last 3 Months Immunizations Immunization Administration Dates Next Due Flucelvax Influenza Quad 05/24/2020 Influenza, Quadrivalent, Spl it, Preservative Free, Intramuscular 05/09/2023,05/17/2022,05/17/2021 Influenza, Unspecified 04/13/2025,2023,08/29/2022(Defer red: Patient Refused),07/29/2022(Deferred: Patient Refused),05/12/2021,07/29/2020(Deferre d: Patient Refused) Pfizer SARS-CoV-2 Monovalent Vaccination (12+ Yrs) PURPLE 11/25/2020,11/04/2020 RSV Vaccine, Pref, Recombina nt, Subunit, Adjuvanted, PF, IM (Arexvy) 02/24/2025 Tdap 02/24/2025,07/29/2014 ZOSTER Recombinant 04/27/2024,09/20/2023 Surgical History Surgery Date Site/Laterality Comments HYSTERECTOMY 08/08/2021 UPPER GASTROINTESTINAL ENDOSCOPY SECTION 12/27/1990 - 01/25/1991 COLONOSCOPY SECTION December 1990 Medical History Medical History Date Comments Anemia Hypertension GAVE (gastric antral vascula r ectasia) 07/25/[address] Schuler after endoscopy GERD (gastroesophageal reflu x disease) Depression Pulmonary embolism 10/2021 Scleroderma Autoimmune disease May 2023 Family History Medical History Relation Name Comments No Known Problems Brother No Known Problems Child No Known Problems Cousin No Known Problems Daughter Diabetes Father Adonis Riley Hearing loss Father Adonis Riley Heart disease Father Adonis Riley Hypertension Father Adonis Riley No Known Problems Father's Brother No Known Problems Father's Sister No Known Problems Maternal Grandfather No Known Problems Maternal Grandmother No Known Problems Maternal Great-Grandfather No Known Problems Maternal Great-Grandmother No Known Problems Maternal Half-Brother No Known Problems Maternal Half-Sister No Known Problems Maternal cousin Hypertension Mother Alyssa Riley No Known Problems Mother's Brother No Known [...] Sister No Known Problems Son BRCA 1 positive Neg Hx BRCA 2 positive Neg Hx Benign Breast Condition Neg Hx Breast cancer Neg Hx Ductal Carcinoma In-Situ Neg Hx Endometrial cancer Neg Hx Ovarian cancer Neg Hx Thyroid cancer Neg Hx Usual Breast Hyperplasia Neg Hx Relation Name Status Comments Brother Child Cousin Daughter Father Adonis Riley Alive Father's Brother Father's Sister Maternal Grandfather Maternal Grandmother Maternal Great-Grandfather Maternal Great-Grandmother Maternal Half-Brother Maternal Half-Sister Maternal cousin Mother Alyssa Riley Alive Mother's Brother Mother's Sister Nephew Niece Other Paternal Grandfather Paternal Grandmother Paternal Great-Grandfather Paternal Great-Grandmother Paternal Half-Brother Paternal Half-Sister Paternal cousin Sister Son Social History Tobacco Use Types Packs/Day Years Used Date Smoking Tobacco: Never Smokeless Tobacco: Never Tobacco Cessation:Counseling Given: Not Answered Alcohol Use Standard Drinks/Week Comments Never 0 [...] file Legal Sex Female 10:31 AM DRY JANITOR Gender Identity Female 02/02/2021 7:25 AM CDT Sexual Orientation Straight 02/02/2021 7: 25 AM CDT Last Filed Vital Signs Vital Sign Reading Time Taken Comments Blood Pressure 144/70 07/05/2025 1:40 PM DRY JANITOR Pulse 83 07/05/2025 1:40 PM DRY JANITOR Temperature 36.7 C (98.1 F) 06/16/2025 8:56 AM DRY JANITOR Respiratory Rate 16 06/16/2025 8:56 AM DRY JANITOR Oxygen Saturation 99% 07/05/2025 1:40 PM DRY JANITOR Inhaled Oxygen Concentration - - Weight 94.6 kg (208 lb 9.6 oz) 07/05/2025 1:40 P M DRY JANITOR Height 160 cm (5' 3) 07/05/2025 1:40 PM DRY JANITOR Body Mass Index 36.95 07/05/2025 1:40 PM DRY JANITOR Plan of Treatment Health Maintenance Due Date Last Done Comments Hepatitis B Screening 02/20/1982 Pneumococcal vaccine <65 (1 of 2 - PCV) 02/20/1983 Covid-19 Vaccine (3 - Pfizer risk series) 12/23/2020 11/25/2020, 11/04/2020 Breast Cancer Screening-Mammogram 07/13/2025 07/13/2024, 04/26/2022, 04/18/2021, Additional history exists Depression Screening 04/22/2026 04/22/2025, 10/21/2024, 07/01/2024, Additional history exists Regular Well Visit/Exam 18-64 04/22/2026, 07/01/2024, 02/05/2023, Additional history exists Colon Cancer Screening-Colonoscopy 10/12/2030 10/12/2020, 10/12/2020 DTaP/Tdap/Td Vaccine (3 - Td or Tdap) 02/24/2035 02/24/2025, 07/29/2014 Colon Cancer Screening-DNA Stool Discontinued 10/12/2020, 10/12/2020, 10/11/2020, Additional history exists Cervical Cancer Screening Discontinued 05/03/2021 Hepatitis C Screening Completed 06/17/2023 Zoster Vaccine Completed 04/27/2024, 09/20/2023 Influenza Vaccine Completed 04/13/2025, , 05/09/2023, Additional history exists Procedures Procedure Name Priority Date/Time Associated Diagnosis Comments POCT URINALYSIS DIPSTICK Routine 07/06/2025 11:53 AM DRY JANITOR Dysuria URINE CULTURE Routine 07/06/2025 11:22 AM DRY JANITOR Dysuria EGFR Routine 06/16/2025 8:52 AM DRY JANITOR Lipid screening DIFFERENTIAL AUTO Routine 06/16/2025 8:5 2 AM DRY JANITOR History of DVT (deep vein thrombosis) Iron deficiency anemia due to chronic blood loss HEMOGLOBIN A1C Routine 06/16/2025 8:52 AM DRY JANITOR Hyperglycemia LIPID PANEL Routine 06/16/2025 8:52 AM DRY JANITOR Lipid screening VITAMIN B12 Routine 06/16/2025 8:52 AM DRY JANITOR B12 deficiency COMPREHENSIVE METABOLIC PANEL Routine 06/16/2025 8:52 AM DRY JANITOR Lipid screening IRON PROFILE W/ IBC Routine 06/16/2025 8:52 AM DRY JANITOR History of DVT (deep vein thrombosis) Iron deficiency anemia due to chronic blood loss FERRITIN Routine 06/16/2025 8:52 AM DRY JANITOR History of DVT (deep vein thrombosis) Iron deficiency anemia due to chronic blood loss CBC WITH AUTO DIFFERENTIAL Routine 06/16/2025 8:52 AM DRY JANITOR History of DVT (deep vein thrombosis) Iron deficiency anemia due to chronic blood loss HM MAMMOGRAPHY Routine 07/13/2024 12:21 PM DRY JANITOR HEPATITIS PANEL, ACUTE Routine 2:12 PM DRY JANITOR Fatigue, unspecified type PAP SMEAR WITH HPV Routine 05/03/2021 3:03 PM CDT HM COLONOSCOPY Routine 10/12/2020 from Last 3 Months or Most Recently Relevant to Health Maintenance Results * (ABNORMAL) POCT urinalysis dipstick (07/06/2025 11:53 AM DRY JANITOR) Glucose, ur, POC Negative Negative Bilirubin, ur, POC Negative Negative Ketones, ur, POC Negative Negative Specific [place], POC 1.025 1.003 - 1.030 Blood, ur, POC Large(A) Negative pH, ur, POC 6.5 5.0 - 8.0 Protein, ur, POC 100.(A) Negative Urobilinogen, urine, POC 0.2 0.2 - 1.0 mg/dL Nitrite, ur, POC Negative Negative Leukocytes, ur, POC Moderate(A) Negative Lot Number [id number] Urine 07/06/2025 11:5 3 AM DRY JANITOR Starr SALVADOR POINT OF CARE TEST ORDERAB LES Final Result * (ABNORMAL) Urine culture Urine, clean voided (07/06/2025 11:22 AM DRY JANITOR) Pathologist [facility] Urine culture (A) [employer]Tesha Friedman Comment: CULTURE, URINE, ROUTINE Micro Number: [id number] Test Status: Final Specimen Source: Not given Specimen Quality: Adequate Result: 10,000-49,000 CFU/mL of Escherichia coli E.coli INT FRANKLIN AMOX/CLAVULANATE S 8 AMP/SULBACTAM I 16 CEFAZOLIN NR 2 2 CEFEPIME S <=0.12 CEFTAZIDIME S <=0.5 CEFTRIAXONE S <=0.25 CIPROFLOXACIN S <=0.06 GENTAMICIN S <=1 IMIPENEM S <=0.25 LEVOFLOXACIN S <=0.12 MEROPENEM S <=0.25 NITROFURANTOIN S <=16 PIP/TAZOBACTAM S <=4 TRIMETHOPRIM/SULFA R >=320 S = Susceptible I = Intermediate R = Resistant NS = Not susceptible SDD = Susceptible Dose Dependent * = Not Tested NR = Not Reported NN = See Therapy Comments THERAPY COMMENTS Note 1: For infections other than uncomplicated UTI caused by E. coli, K. pneumoniae or P. mirabilis: Cefazolin is resistant if FRANKLIN > or = 8 mcg/mL. (Distinguishing susceptible versus intermediate for isolates with FRANKLIN < or = 4 mcg/mL requires additional testing.) Note 2: For uncomplicated UTI caused by E. coli, K. pneumoniae or P. mirabilis: Cefazolin is susceptible if FRANKLIN <32 mcg/mL and predicts susceptible to the oral agents cefaclor, cefdinir, cefpodoxime, cefprozil, cefuroxime, cephalexin and loracarbef. Urine, clean voided 07/06/2025 11:22 AM DRY JANITOR 07/07/2025 2:44 AM DRY JANITOR Starr SALVADOR LAB MICROBIOLOGY - GENERAL ORDERABLES Final Result [facility] [address] [place] [address] * eGFR (06/16/2025 8:52 AM DRY JANITOR) eGFR >90 >=60 mL/min/1. 73 m2 Comment: Interpretive Data Reference Interval Normal >/= 90 mL/min/1.73m2 Mildly decreased* 60 - 89 mL/min/1.73m2 Mildly to moderately decreased 45 - 59 mL/min/1.73m2 Moderately to severely decreased 30 - 44 mL/min/1.73m2 Severely decreased 15 - 29 mL/min/1.73m2 Kidney Failure < 15 mL/min/1.73m2 *Relative to young adult level Estimated glomerular filtration rate is determined by the 2020 CKD-EPI equation recommended by the National Kidney Foundation (A Unifying Approach to GFR Estimation: Recommendations of the NKF-ASK Task Force on Reassessing the Inclusion of Race in Diagnosing Kidney Disease, JASN 2020). The CKD-EPI equation should not be used for patients with unstable renal function and has not been validated in children and those over 70. Current interpretive data was last reviewed 2021. Testing performed by: [address] [address] Blood 06/16/2025 8:52 AM DRY JANITOR 06/16/2025 8:57 AM DRY JANITOR Starr SALVADOR LAB BLOOD ORDERABLES Final Result [facility] [address] [facility] Department [place] [address] * Differential, auto (06/16/2025 8:52 AM DRY JANITOR) Neutrophil abs 4.62 1.50 - 6.50 K/cumm Comment:Testing performed by : [address] [address] Imm gran abs 0.02 0.00 - 0.10 K/cumm LELAND Comment:Testing performed by : [address] [address] Lymphocyte abs 0.87 0.80 - 3.30 K/cumm LELAND Comment:Testing performed by : [address] [address] Monocyte abs 0.39 0.20 - 0.80 K/cumm LELAND Comment:Testing performed by : [address] [address] Eosinophil abs 0.09 0.00 - 0.50 K/cumm LELAND Comment:Testing performed by : [address] [address] Basophil abs 0.02 0.00 - 0.10 K/cumm LELAND Comment:Testing performed by : [address] [address] Neutrophil pct 76.9 % LELAND Comment: Interpretive Data Percent cell count reference ranges are not reported, since discordance with absolute values may lead to misinterpretation of CBC data. Current Interpretive Data was last revised on 2017. Testing performed by: [address] [address] Imm gran pct 0.3 % LELAND Comment: Interpretive Data Percent cell count reference ranges are not reported, since discordance with absolute values may lead to misinterpretation of CBC data. Current Interpretive Data was last revised on 2017. Testing performed by: [address] [address] Lymphocyte pct 14.5 % [facility] Comment: Interpretive Data Percent cell count reference ranges are not reported, since discordance with absolute values may lead to misinterpretation of CBC data. Current Interpretive Data was last revised on 2017. Testing performed by: [address] [address] Monocyte pct 6.5 % [facility] Comment: Interpretive Data Percent cell count reference ranges are not reported, since discordance with absolute values may lead to misinterpretation of CBC data. Current Interpretive Data was last revised on 2017. Testing performed by: [address] [address] Eosinophil pct 1.5 % [facility] Comment: Interpretive Data Percent cell count reference ranges are not reported, since discordance with absolute values may lead to misinterpretation of CBC data. Current Interpretive Data was last revised on 2017. Testing performed by: [address] [address] Basophil pct 0.3 % [facility] Comment: Interpretive Data Percent cell count reference ranges are not reported, since discordance with absolute values may lead to misinterpretation of CBC data. Current Interpretive Data was last revised on 2017. Testing performed by: [address] [address] Blood 06/16/2025 8:52 AM DRY JANITOR 06/16/2025 8:57 AM DRY JANITOR us Cornelius Garcia DO LAB BLOOD ORDERABLES Final R esult LELAND GARCIA [address] [facility] Department of Laboratories [place], [place] [id number] * (ABNORMAL) Iron profile w/ IBC (06/16/2025 8:52 AM DRY JANITOR) Pathologist [facility] Iron 55 35 - 145 mcg/dL Comment:Testing performed by : [address] [address] TIBC 313 250 - 400 mcg/dL LELAND GARCIA Comment:Testing performed by : [address] [address] Transferrin saturation 18(L) 20 - 50 % LELAND GARCIA Comment:Testing performed by : [address] [address] Blood 06/16/2025 8:52 AM DRY JANITOR 06/16/2025 9:48 AM DRY JANITOR us Cornelius Garcia DO LAB BLOOD ORDERABLES Final R esult LELAND GARCIA [address] [facility] Department [place] [address] * CBC with auto differential (06/16/2025 8:52 AM DRY JANITOR) WBC 6.01 3.80 - 9.90 K/cumm Comment:Testing performed by : [address] [address] Hgb 11.9 11.9 - 15.5 g/dL LELAND GARCIA Comment:Testing performed by : [address] [address] Hct 36.6 35.6 - 45.5 % LELAND GARCIA Comment:Testing performed by : [address] [address] Plt 235 150 - 400 K/cumm LELAND GARCIA Comment:Testing performed by : [address] [address] MPV 10.2 9.1 - 12.3 fL LELAND GARCIA Comment:Testing performed by : [address] [address] RBC 4.27 3.90 - 5.20 M/cumm LELAND GARCIA Comment:Testing performed by : [address] [address] MCV 85.7 81.3 - 96.4 fL LELAND GARCIA Comment:Testing performed by : [address] [place] [address] MCH 27.9 27.1 - 33.3 pg LELAND Comment:Testing performed by : [address] [address] MCHC 32.5 32.3 - 35.7 g/dL LELAND Comment:Testing performed by : [address] [address] RDW CV 13.7 11.1 - 14.9 % LELAND Comment:Testing performed by : [address] [address] RDW SD 42.6 35.7 - 48.1 fL LELAND Comment:Testing performed by : [address] [address] NRBC abs 0.00 0.00 - 0.01 K/cumm LELAND Comment:Testing performed by : [address] [address] ANC Prelim 4.62 1.50 - 6.50 K/cumm LELAND Comment: Interpretive Data The rapid ANC is a preliminary automated count and may vary from the final ANC (Neut Abs) reported in the WBC differential that follows. Current interpretive data was last revised 2024. Testing performed by: [address] [address] Blood 06/16/2025 8:52 AM DRY JANITOR 06/16/2025 8:57 AM DRY JANITOR Cornelius Garcia DO LAB BLOOD ORDERABLES Final R esult [facility] MARIA [address] [facility] Department [place] [address] * Hemoglobin A1c (06/16/2025 8:52 AM DRY JANITOR) [facility] Hgb A1C 5.1 4.0 - 5.6 % Comment:Testing performed by : [address] [address] Estimated Average Glucose 100 mg/dL LELAND Comment: The ADA recommends reporting an estimated Average Glucose (eAG) with all Hemoglobin A1c results using the equation derived from a study of 507 normal and diabetic adults. Minority populations were underrepresented and children were not included. (Diabetes Care 31:7363-1738, 2008). The eAG is not equivalent to a fasting glucose. Testing performed by: [address] [address] Blood 06/16/2025 8:52 AM DRY JANITOR 06/16/2025 9:49 AM DRY JANITOR Starr SALVADOR LAB BLOOD ORDERABLES Final Result Performing Organization Address City/[facility]/ZIP Co de Phone Number [address] [address] * Ferritin (06/16/2025 8:52 AM DRY JANITOR) Pathologist [facility] Ferritin 32 13 - 150 ng/mL Comment:Testing performed by : [address] [address] Blood 06/16/2025 8:52 AM DRY JANITOR 06/16/2025 9:48 AM DRY JANITOR Cornelius Garcia DO LAB BLOOD ORDERABLES Final R esult Performing Organization Address [facility] Co de Phone Number [address] [address] * Vitamin B12 (06/16/2025 8:52 AM DRY JANITOR) Vitamin B12 664 230 - 1,250 pg/mL Comment:Testing performed by : [address] [address] Blood 06/16/2025 8:52 AM DRY JANITOR 06/16/2025 9:45 AM DRY JANITOR Starr SALVADOR LAB BLOOD ORDERABLES Final Result Performing Organization Address City/[facility]/ZIP Co de Phone Number [address] [place] [address] * Lipid panel (06/16/2025 8:52 AM DRY JANITOR) Cholesterol 149 30 - 199 mg/dL Comment: Interpretive Data Ages < or = 19 years Acceptable: <170 mg/dL Borderline high: 170-199 mg/dL High: >or= 200 mg/dL Ages > or = 20 years Desirable: <200 mg/dL Borderline high: 200-239 mg/dL High: >or= 240 mg/dL Literature References: 1. Expert Panel on Integrated Guidelines for Cardiovascular Health and Risk Reduction in Children and Adolescents. Pediatrics 2011;128:S213 2. NCEP Expert Panel. Circulation 2004;110:227 Current Interpretive Data was last revised on 2018. Testing performed by: [address] [address] Triglycerides 102 <=149 mg/dL LELAND Comment: Interpretive Data Ages < or = 9 years Acceptable: <75 mg/dL Borderline high: 75-99 mg/dL High: >or= 100 mg/dL Ages 10 to 20 years Acceptable: <90 mg/dL Borderline high: 90-129 mg/dL High: >or= 130 mg/dL Ages > or = 20 years Desirable: <150 mg/dL Borderline high: 150-199 mg/dL High: 200-499 mg/dL Very high: >or= 499 mg/dL Literature References: 1. Expert Panel on Integrated Guidelines for Cardiovascular Health and Risk Reduction in Children and Adolescents. Pediatrics 2011;128:S213 2. NCEP Expert Panel. Circulation 2004;110:227 Current Interpretive Data was last revised on 2018. Testing performed by: [address] [address] HDL 54 >=40 mg/dL LELAND Comment: Interpretive Data Ages < or = 19 years Acceptable: >45 mg/dL Borderline low: 40-45 mg/dL Low: <40 mg/dL Ages > or = 20 years Desirable: >or= 60 mg/dL Low: <40 mg/dL Literature References: 1. Expert Panel on Integrated Guidelines for Cardiovascular Health and Risk Reduction in Children and Adolescents. Pediatrics 2011;128:S213 2. NCEP Expert Panel. Circulation 2004;110:227 Current Interpretive Data was last revised on 2018. Testing performed by: [address] [address] LDL, calculated 76 <=129 mg/dL LELAND GARCIA Comment: Interpretive Data Ages < or = 19 years Acceptable: <110 mg/dL Borderline high: 110-129 mg/dL High: >or= 130 mg/dL Ages > or = 20 years Optimal: <100 mg/dL Near optimal: 100-129 mg/dL Borderline high: 130-159 mg/dL High: >160 mg/dL Calculated using the Ector LDL-C estimating equation. This equation was implemented on 2024. Prior to this date LDL-C was estimated using the Friedewald equation. Literature References: 1. Expert Panel on Integrated Guidelines for Cardiovascular Health and Risk Reduction in Children and Adolescents. Pediatrics 2011;128:S213 2. NCEP Expert Panel. Circulation 2004;110:227 3. Ector Davis et al. BENIGNO Cardiol. 2020 November 26;5(5):540-548. doi: 10.1001/[email or web address].2020.0013 Current Interpretive Data was last revised on 2024. Testing performed by: [address] [address] Non-HDL Cholesterol 95 mg/dL LELAND Comment: Interpretive Data Ages < or = 19 years Acceptable: <120 mg/dL Borderline high: 120-144 mg/dL High: >145 mg/dL Ages > or = 20 years When triglycerides are >200 mg/dL, Non-HDL cholesterol is a secondary target of therapy with treatment goals that are 30 mg/dL greater than the LDL cholesterol target. Literature References: 1. Expert Panel on Integrated Guidelines for Cardiovascular Health and Risk Reduction in Children and Adolescents. Pediatrics 2011;128:S213 2. NCEP Expert Panel. Circulation 2004;110:227 Current Interpretive Data was last revised on 2018. Testing performed by: [address] [address] Chol/HDL ratio 3 LELAND Comment:Testing performed by : [address] [address] Blood 06/16/2025 8:52 AM DRY JANITOR 06/16/2025 9:45 AM DRY JANITOR us Starr [facility] BLOOD ORDERABLES Final Result [facility] [address] [facility] Department [place] [address] * Comprehensive metabolic panel (06/16/2025 8:52 AM DRY JANITOR) Sodium 140 135 - 145 mmol/L Comment:Testing performed by : [address] [address] Potassium, pl 4.0 3.3 - 4.9 mmol/L LELAND Comment:Testing performed by : [address] [address] Chloride 106 97 - 110 mmol/L LELAND Comment:Testing performed by : [address] [address] CO2 23 22 - 32 mmol/L LELAND Comment:Testing performed by : [address] [address] Anion gap 11 2 - 15 mmol/L LELAND Comment:Testing performed by : [address] [address] BUN 14 6 - 25 mg/dL LELAND Comment:Testing performed by : [address] [address] Creatinine 0.60 0.60 - 1.10 mg/dL LELAND Comment:Testing performed by : [address] [address] Glucose 95 70 - 199 mg/dL LELAND Comment: Interpretive Data Fasting glucose >/= 126 mg/dl is diagnostic for diabetes. Fasting is defined as no caloric intake for at least 8 hours. Fasting glucose between 100 mg/dl to 125 mg/dl is diagnostic of prediabetes. In a patient with classic symptoms of hyperglycemia or hyperglycemic crisis, a random glucose >/= 200 mg/dl is diagnostic for diabetes. In the absence of unequivocal hyperglycemia, results should be confirmed by repeat testing. The classification and Diagnosis of Diabetes Diabetes Care 202; 46: S19-S40. Current interpretive data was last revised 2022. Testing performed by: [address] [address] Calcium 9.6 8.5 - 10.3 mg/dL LELAND Comment:Testing performed by : [address] [address] Bilirubin, total 0.4 0.1 - 1.2 mg/dL LELAND Comment:Testing performed by : [address] [address] Protein, pl 6.7 6.5 - 8.5 g/dL LELAND Comment:Testing performed by : [address], [place]., [address] Albumin 4.2 3.5 - 5.0 g/dL LELAND Comment:Testing performed by : [address] [address] Alk phos 78 40 - 130 Units/L LELAND Comment:Testing performed by : [address] [address] ALT 10 7 - 45 Units/L LELAND Comment:Testing performed by : [address] [address] AST 14 10 - 45 Units/L [facility] MARIA Comment:Testing performed by : [address] [address] Blood 06/16/2025 8:52 AM DRY JANITOR 06/16/2025 8:57 AM DRY JANITOR Starr [facility] BLOOD ORDERABLES Final Result L[facility] [address] [facility] Department [place] [address] * HM MAMMOGRAPHY (07/13/2024 12:21 PM DRY JANITOR) Pathologist [facility] Mammography Normal Historical Provider HEALTH MAINTENANCE Edited Result - Final * Hepatitis panel, acute Blood (06/17/2023 2:12 PM DRY JANITOR) Hep A IgM NON-REACTI VE NON-REACT EMILE [facility] Comment: For additional information, please refer to http://Banyan/faq/IBI805 (This link is being provided for informational/ educational purposes only.) HepBsAg NON-REACTI VE NON-REACT EMILE [facility] Comment: For additional information, please refer to http://Banyan/faq/SZN898 (This link is being provided for informational/ educational purposes only.) Hep B core IgM NON-REACTI VE NON-REACT EMILE [facility] Comment: For additional information, please refer to http://Banyan/faq/HPM606 (This link is being provided for informational/ educational purposes only.) Hep C Ab NON-REACTI VE NON-REACT EMILE [facility] Comment: HCV antibody was non-reactive. There is no laboratory evidence of HCV infection. In most cases, no further action is required. However, if recent HCV exposure is suspected, a test for HCV RNA (test code 61582) is suggested. For additional information please refer to http://Banyan/faq/LAR24u0 (This link is being provided for informational/ educational purposes only.) Blood 06/17/2023 2:12 PM DRY JANITOR 06/17/2023 2:13 PM DRY JANITOR Jing [facility] MICROBIOLOGY - NERAL ORDERABLES Final Result [facility] [address] [address] [place] [id number] * PAP SMEAR WITH HPV (05/03/2021 3:03 PM CDT) Historical Provider HEALTH MAINTENANCE Edited Result - Final * HM COLONOSCOPY (10/12/2020) Historical Provider HEALTH MAINTENANCE Edited Result - Final from Last 3 Months or Most Recently Relevant to Health Maintenance Insurance ANTHEM ACCESS CHOICE ANTHEM ACCESS CHOICE ANTHEM ACCESS CHOICE [facility] ACCESS CHOICE Care Teams Outside Cutter Relationship Specialty Start Date End Date Starr Bran PA [address] [place] [address] PCP - General Internal Medicine 12/30/18 Bibiana Schuler MD [address] [place] [address] Consulting Physician Gastroenterology 05/11/21 Cornelius Garcia DO [address] [place] [address] MEDICAL ONCOLOGY, [address] [place] [address] Medical Oncologist/Hematologis t Hematology and Oncology 09/26/21 Madhu Brito MD [address] [place] [address] Consulting Physician Rheumatology 05/22/23
== END 2025-07-15 08:59 | disposition home or self-care (01) ==
LOC: ANHFOHIMG 09:01
PROVIDERS: PCP Physician Assistant; Visit Provider Obstetrics & Gynecology
DX: Z12.31 Encounter for screening mammogram for malignant neoplasm of breast (principal)
CPT/HCPCS: 77063; 77067